=== PATIENT | male | born 1955 | race Caucasian/White ===

== ENCOUNTER 2016-09-04 16:40 | Emergency (ER) | payer MEDICARE, OTHER ==
[2016-09-04] MEDS ORDERED: HYDROmorphone 1 MG/ML 1 ML SYRINGE IM STA (17:26)
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
[2016-09-04 17:56] LABS: Appearance,Urine Clear (Clear); Bilirubin,Urine Negative (Negative); Glucose,Urine (UA) Negative (Negative); Ketones,Urine Negative (Negative); Leukocyte Esterase,Urine Negative (Negative); Nitrite,Urine Negative (Negative); PH, Urine 6.5 (5.0-8.0); Protein,Urine Negative (Negative); Specific Gravity,Urine 1.014 (1.001-1.035); UA Billing (MACRO vs. MICRO) CHEM; Urobilinogen,Urine <2.0 mg/dL (<2.0)
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
[2016-09-04] MEDS ORDERED: HYDROmorphone 1 MG/ML 1 ML SYRINGE IVP STA (18:40)
[2016-09-04 18:56] LABS: Basophils % (A) 0 %; CH 30.3; CHCM 32.1; Eosinophils # (A) 0.1 k/uL (0-0.7); Eosinophils % (A) 1 %; HCT 48.4 % (39.0-53.0); HDW 2.53; HGB 15.5 gm/dL (13.0-17.5); Luc # (Auto) 0.21; Luc % (Auto) 2; Lymphocytes % (A) 23 %; MCH 30.3 pg (25.0-35.0); MCV 94.7 fL (80.0-100.0); Mean Platelet Volume 7.6; Monocytes # (A) 0.4 k/uL (0-1.0); Monocytes % (A) 5 %; Neutrophils # (A) 6.1 k/uL (1.3-7.7); Neutrophils % (A) 68 %; RBC 5.12 m/uL (4.30-5.90); WBC 8.9 k/uL (3.8-10.6); WBC (Perox) 8.38
[2016-09-04 19:07] LABS: ALT 33 U/L (21-72); AST 23 U/L (17-59); Alcohol <10 mg/dL; Alkaline Phosphatase 67 U/L (38-126); Anion Gap 7 mmol/L; Blood Urea Nitrogen 16 mg/dL (9-20); Calcium 9.4 mg/dL (8.4-10.2); Carbon Dioxide 33 mmol/L (22-30); Chloride 99 mmol/L (98-107); Glucose 79 mg/dL (74-99); Non-African American GFR(MDRD) >60 (>60 ml/min/1.73 sqM); Potassium 4.7 mmol/L (3.5-5.1); Sodium 139 mmol/L (137-145); Total Bilirubin 0.5 mg/dL (0.2-1.3)
[2016-09-04 19:18] LABS: Creatine Kinase 167 U/L (55-170)
[2016-09-04 19:30] LABS: Troponin I <0.012 ng/mL (0.000-0.034)
[2016-09-04 19:33] LABS: Partial Thromboplastin Time 24.5 sec (22.0-30.0); Prothrombin Time 10.3 sec (9.0-12.0)
[2016-09-04 19:34] LABS: Creatine Kinase MB 5.2 ng/mL (0.0-2.4)
[2016-09-04 20:59] VITALS: BP 169/90; PULSE 86; RESP 20; TEMP 98.4
== END 2016-09-04 20:59 | disposition home or self-care (01) ==
LOC: EC 16:40
DX: M48.06 Spinal stenosis, lumbar region (principal); M48.02 Spinal stenosis, cervical region; F17.200 Nicotine dependence, unspecified, uncomplicated; E66.01 Morbid (severe) obesity due to excess calories; Z68.43 Body mass index [BMI] 50.0-59.9, adult; Z79.82 Long term (current) use of aspirin; V48.6XXA Car passenger injured in noncollision transport accident in traffic accident, initial encounter; Y92.410 Unspecified street and highway as the place of occurrence of the external cause
CPT/HCPCS: 99285; 96374; 96372; 36415; 93005; 80053; 82550; 82553; 84484; 85025; 85610; 85730; 81003; 80306; 80320; 71010; 72170; 72125; 72131; J1170

== ENCOUNTER 2016-11-03 18:19 | Inpatient (IN) | payer MEDICARE ==
[2016-11-03] MEDS ORDERED: IPRATROPIUM-ALBUTEROL 3 ML NEB INHALATION STA (18:53)
[2016-11-03] MEDS ORDERED: methylPREDNISolone SOD SUCCI 125 MG/2 ML VIAL IV STA (18:53)
[2016-11-03 19:12] LABS: Basophils # (A) 0.1 k/uL (0-0.2); Basophils % (A) 1 %; CH 30.8; CHCM 32.1; Eosinophils # (A) 0.1 k/uL (0-0.7); Eosinophils % (A) 1 %; HCT 48.3 % (39.0-53.0); HDW 2.48; HGB 15.4 gm/dL (13.0-17.5); Luc # (Auto) 0.18; Luc % (Auto) 2; Lymphocytes # (A) 2.5 k/uL (1.0-4.8); Lymphocytes % (A) 30 %; MCH 30.7 pg (25.0-35.0); MCHC 31.9 g/dL (31.0-37.0); MCV 96.3 fL (80.0-100.0); Mean Platelet Volume 7.5; Monocytes # (A) 0.3 k/uL (0-1.0); Monocytes % (A) 4 %; Neutrophils # (A) 5.2 k/uL (1.3-7.7); Neutrophils % (A) 62 %; RBC 5.02 m/uL (4.30-5.90); RDW 13.4 % (11.5-15.5); WBC 8.3 k/uL (3.8-10.6); WBC (Perox) 7.96
[2016-11-03 19:23] LABS: ALT 33 U/L (21-72); AST 25 U/L (17-59); Alkaline Phosphatase 80 U/L (38-126); Anion Gap 9 mmol/L; Blood Urea Nitrogen 18 mg/dL (9-20); Calcium 8.9 mg/dL (8.4-10.2); Carbon Dioxide 31 mmol/L (22-30); Chloride 102 mmol/L (98-107); Glucose 142 mg/dL (74-99); Magnesium 1.7 mg/dL (1.6-2.3); Non-African American GFR(MDRD) >60 (>60 ml/min/1.73 sqM); Potassium 4.6 mmol/L (3.5-5.1); Sodium 142 mmol/L (137-145); Total Bilirubin 0.4 mg/dL (0.2-1.3); Total Protein 6.4 g/dL (6.3-8.2)
--- NOTE | 2016-11-03 19:25 | ED ---
SOB HPI - General Chief Complaint: Shortness of Breath Stated Complaint: Diff Breathing Time Seen by Provider: 11/03/16 18:24 Source: patient, EMS Mode of arrival: EMS Limitations: no limitations - History of Present Illness Initial Comments: Is a 61-year-old male with a history of CAD and COPD who presents emergency department progressive worsening shortness of breath. He states it started yesterday. He states it is worse with exertion. He also has some associated bilateral knee pain which is chronic for him. He states that he went to his physician's office today who documented that he had a oxygen saturation of 88% was concerned so sent him in the emergency department. The patient does wear oxygen at home. He states that the oxygen requirement has been higher and if he takes it off he gets extremely short of breath. He denies any associated chest pain. No fevers or chills. No cough. He states he's had this happen before and it was a COPD. He states he does currently still smoke. - Related Data Home Medications Medication Instructions Recorded Confirmed Albuterol Nebulized [Ventolin 2.5 mg INHALATION RT-QID PRN 11/03/16 11/03/16 Nebulized] Atorvastatin Calcium [Lipitor] 40 mg PO DAILY 11/03/16 11/03/16 Fluticasone/Vilanterol [Breo 1 puff INHALATION RT-DAILY 11/03/16 11/03/16 Ellipta 200-25 Mcg INH] HYDROcodone/APAP 7.5-325MG [[place] 1 tab PO Q4HR PRN 11/03/16 11/03/16 7.5-325] Nystatin 100,000Unit/gm Cream 1 applic TOPICAL BID 11/03/16 11/03/16 [Mycostatin Cream] oxyCODONE ER [OxyCONTIN 20MG E.R] 20 mg PO Q12HR 11/03/16 11/03/16 Previous Rx's Medication Instructions Recorded Clopidogrel [Plavix] 75 mg PO DAILY #30 tab 02/05/16 Famotidine [Pepcid] 20 mg PO BID #60 tablet 02/05/16 Metoprolol Tartrate [Lopressor] 25 mg PO BID #60 tab 02/05/16 Nitroglycerin Sl Tabs [Nitrostat] 0.4 mg SUBLINGUAL Q5M PRN #100 tab 09/08/16 ALPRAZolam [Xanax] 0.25 mg PO TID PRN #20 tab 02/09/16 Isosorbide Mononitrate ER [Imdur] 60 mg PO DAILY tab.er.24h 02/09/16 Allergies Allergy/AdvReac Type Severity Reaction Status Date / Time No Known Allergies Allergy Verified 11/03/16 20:21 Review of Systems ROS Statement: Those systems with pertinent positive or pertinent negative responses have been documented in the HPI. ROS Other: All systems not noted in ROS Statement are negative. Past Medical History Past Medical History: Coronary Artery Disease (CAD), Chest Pain / Angina, COPD, CVA/TIA, Hyperlipidemia, Hypertension, Myocardial Infarction ([place]), Sleep Apnea/ CPAP/BIPAP Additional Past Medical History / Comment(s): Other HX: diverticular dx, NARCISO without device, 2004 CVA with no deficits, [place] in 2011, chronic low back pain, 4 vertebral fx L2-L5, L knee fx in past and torn R rotator cuff. Last Myocardial Infarction Date:: 2011 History of Any Multi-Drug Resistant Organisms: None Reported Past Surgical History: AICD, Heart Catheterization With Stent, Hernia Repair Additional Past Surgical History / Comment(s): PTCA, PTCA with stent (4 total), 04/05/13 AICD [employer], 1989' umbilical hernia repair, colonoscopy, circumcism. Past Anesthesia/Blood Transfusion Reactions: No Reported Reaction Date of Last Stent Placement:: 2012 Type of Cardiac Device: AICD Device Placement Date:: 04/05/13 Past Psychological History: No Psychological Hx Reported Additional Psychological History / Comment(s): Pt moved about 1 month ago from [place] to [place]. He is living in a home with other adults. He is sleeping on their couch. He can drive. He states he uses no assistive devices. Smoking Status: Current every day smoker Past Alcohol Use History: None Reported Additional Past Alcohol Use History / Comment(s): Pt states he started smoking around 1972 and has been less than 1/2 ppd and recently maybe has been smoking 1 cigarette a day. Past Drug Use History: None Reported - Past Family History Father Family Medical History: Musculoskeletal Disorder, Neurologic Disorder Additional Family Medical History / Comment(s): Father had parkinson's dx and at age 84 yrs. Mother Family Medical History: Myocardial Infarction ([place]) Additional Family Medical History / Comment(s): Mother had 3 vessel CABG. She of a massive [place] at the age of 53 yrs. General Exam - General Exam Comments Initial Comments: Constitutional: Awake alert Appears comfortable Head: Normocephalic atraumatic Eyes: no conjunctival injection No scleral icterus EOMI Neck: No JVD Supple Heart: Regular rate rhythm normal S1-S2 no murmurs Lungs: Tachypneic, decreased breath sounds due to body habitus, there is mild expiratory wheezing bilaterally Abdomen: Soft nondistended nontender Extremities: DP pulses intact Radial pulses intact, there is no lower extremity edema bilaterally however the patient states that this is chronic Neuro: A&Ox3 No focal neurologic deficits Psych: Appropriate mood and affect Limitations: no limitations Course Vital Signs 11/03/16 11/03/16 11/03/16 18:22 18:30 19:53 Temperature 98.5 F Pulse Rate 81 72 Respiratory 22 24 Rate Blood Pressure 197/95 O2 Sat by Pulse 98 Oximetry 11/03/16 11/03/16 11/03/16 20:00 20:06 20:33 Temperature Pulse Rate 78 80 87 Respiratory Rate Blood Pressure O2 Sat by Pulse Oximetry - Reevaluation(s) Reevaluation #1: 11/03/16 19:24 EKG showing normal sinus rhythm with a rate of CAD. No abnormal ST segment changes or T-wave inversions. QTC 449. Other intervals are normal. No ectopy. Medical Decision Making - Medical Decision Making Is a 61-year-old male presents emergency department for worsening soreness of breath for the last day. Patient did have some faint wheezes on examination. He felt mildly improved after breathing treatments however was very labored whenever he moved at all area he does wear 4 L any was about 90-92% on 4 L. Chest x-ray did not show any acute findings however due to the patient's work of breathing like to keep him in the hospital for COPD exacerbation. The patient was in agreement. Dr. Winn accepts the admission. - Lab Data Result diagrams: 11/03/16 19:00 11/03/16 19:00 Lab Results 11/03/16 11/03/16 11/03/16 Range/Units 19:00 19:00 19:00 WBC 8.3 (3.8-10.6) k/uL RBC 5.02 (4.30-5.90) m/uL Hgb 15.4 (13.0-17.5) gm/dL Hct 48.3 (39.0-53.0) % MCV 96.3 (80.0-100.0) fL MCH 30.7 (25.0-35.0) pg MCHC 31.9 (31.0-37.0) g/dL RDW 13.4 (11.5-15.5) % Plt Count 154 (150-450) k/uL Neutrophils % 62 % Lymphocytes % 30 % Monocytes % 4 % Eosinophils % 1 % Basophils % 1 % Neutrophils # 5.2 (1.3-7.7) k/uL Lymphocytes # 2.5 (1.0-4.8) k/uL Monocytes # 0.3 (0-1.0) k/uL Eosinophils # 0.1 (0-0.7) k/uL Basophils # 0.1 (0-0.2) k/uL PT (9.0-12.0) sec INR (<1.1) APTT (22.0-30.0) sec Sodium 142 (137-145) mmol/L Potassium 4.6 (3.5-5.1) mmol/L Chloride 102 (98-107) mmol/L Carbon Dioxide 31 H (22-30) mmol/L Anion Gap 9 mmol/L BUN 18 (9-20) mg/dL Creatinine 1.00 (0.66-1.25) mg/dL Est GFR (MDRD) Af Amer >60 (>60 ml/min/1.73 sqM) Est GFR (MDRD) Non-Af >60 (>60 ml/min/1.73 sqM) Glucose 142 H (74-99) mg/dL Calcium 8.9 (8.4-10.2) mg/dL Magnesium 1.7 (1.6-2.3) mg/dL Total Bilirubin 0.4 (0.2-1.3) mg/dL AST 25 (17-59) U/L ALT 33 (21-72) U/L Alkaline Phosphatase 80 (38-126) U/L CK-MB (CK-2) 4.5 H* (0.0-2.4) ng/mL Troponin I <0.012 (0.000-0.034) ng/mL NT-Pro-B Natriuret Pep pg/mL Total Protein 6.4 (6.3-8.2) g/dL Albumin 3.6 (3.5-5.0) g/dL 11/03/16 11/03/16 Range/Units 19:00 19:00 WBC (3.8-10.6) k/uL RBC (4.30-5.90) m/uL Hgb (13.0-17.5) gm/dL Hct (39.0-53.0) % MCV (80.0-100.0) fL MCH (25.0-35.0) pg MCHC (31.0-37.0) g/dL RDW (11.5-15.5) % Plt Count (150-450) k/uL Neutrophils % % Lymphocytes % % Monocytes % % Eosinophils % % Basophils % % Neutrophils # (1.3-7.7) k/uL Lymphocytes # (1.0-4.8) k/uL Monocytes # (0-1.0) k/uL Eosinophils # (0-0.7) k/uL Basophils # (0-0.2) k/uL PT 9.9 (9.0-12.0) sec INR 1.0 (<1.1) APTT 24.0 (22.0-30.0) sec Sodium (137-145) mmol/L Potassium (3.5-5.1) mmol/L Chloride (98-107) mmol/L Carbon Dioxide (22-30) mmol/L Anion Gap mmol/L BUN (9-20) mg/dL Creatinine (0.66-1.25) mg/dL Est GFR (MDRD) Af Amer (>60 ml/min/1.73 sqM) Est GFR (MDRD) Non-Af (>60 ml/min/1.73 sqM) Glucose (74-99) mg/dL Calcium (8.4-10.2) mg/dL Magnesium (1.6-2.3) mg/dL Total Bilirubin (0.2-1.3) mg/dL AST (17-59) U/L ALT (21-72) U/L Alkaline Phosphatase (38-126) U/L CK-MB (CK-2) (0.0-2.4) ng/mL Troponin I (0.000-0.034) ng/mL NT-Pro-B Natriuret Pep 116 pg/mL Total Protein (6.3-8.2) g/dL Albumin (3.5-5.0) g/dL Disposition Clinical Impression: COPD exacerbation Disposition: ADMITTED IP TO THIS HOSP Condition: Stable Referrals: Tushar Cuadra DO [Primary Care Provider] - 1-2 days
[2016-11-03 19:44] LABS: Prothrombin Time 9.9 sec (9.0-12.0)
[2016-11-03 19:48] LABS: Troponin I <0.012 ng/mL (0.000-0.034)
[2016-11-03 19:51] LABS: Creatine Kinase MB 4.5 ng/mL (0.0-2.4)
--- NOTE | 2016-11-03 21:12 | XR ---
EXAMINATION TYPE: XR chest 1V DATE OF EXAM: 11/03/2016 COMPARISON: 09/04/2016 HISTORY: Difficulty breathing TECHNIQUE: Single frontal view of the chest is obtained. FINDINGS: There is no heart failure nor confluent pneumonic infiltrate. There are no hilar masses. T here are chest leads. There is a left axillary pacemaker with the lead tips in the right ventricle. IMPRESSION: No active cardiopulmonary disease. No change.
[2016-11-03] MEDS: HYDROcodone/APAP 7.5-325MG 1 EACH TAB PO PRN (21:28)
[2016-11-03] MEDS ORDERED: METOPROLOL TARTRATE 25 MG TAB PO STA (22:01)
[2016-11-03] MEDS ORDERED: ALPRAZolam 0.25 MG TAB PO PRN (23:19)
[2016-11-03] MEDS ORDERED: NITROGLYCERIN SL TABS 0.4 MG TAB SUBLINGUAL PRN (23:19)
[2016-11-03] MEDS ORDERED: IPRATROPIUM-ALBUTEROL 3 ML NEB INHALATION PRN (23:20)
[2016-11-03] MEDS: oxyCODONE ER 20 MG TAB.ER.12H PO SCH (23:48)
[2016-11-04] MEDS: HYDROcodone/APAP 7.5-325MG 1 EACH TAB PO PRN ×3 (03:52→17:22)
[2016-11-04] MEDS: methylPREDNISolone SOD SUCCI 125 MG/2 ML VIAL IV SCH ×2 (06:07→12:43)
[2016-11-04] MEDS: IPRATROPIUM-ALBUTEROL 3 ML NEB INHALATION SCH ×5 (07:04→23:47)
[2016-11-04 07:32] LABS: Glucose,Whole Blood 144 mg/dL (75-99)
[2016-11-04] MEDS: oxyCODONE ER 20 MG TAB.ER.12H PO SCH ×2 (08:09→21:32)
[2016-11-04] MEDS: CLOPIDOGREL 75 MG TAB PO SCH (08:10)
[2016-11-04] MEDS: ATORVASTATIN 40 MG TAB PO SCH (08:10)
[2016-11-04] MEDS: FAMOTIDINE 20 MG TAB PO SCH ×2 (08:10→21:34)
[2016-11-04] MEDS: METOPROLOL TARTRATE 25 MG TAB PO SCH ×2 (08:11→21:33)
[2016-11-04] MEDS: ISOSORBIDE MONONITRATE ER 60 MG TAB.ER.24H PO SCH (08:11)
[2016-11-04] MEDS: NYSTATIN 100,000UNIT/GM CREAM 30 GM TUBE TOPICAL SCH ×2 (08:13→21:35)
[2016-11-04] MEDS: ENOXAPARIN 40 MG/0.4 ML SYRINGE SQ SCH (08:19)
[2016-11-04] MEDS ORDERED: NICOTINE 21MG/24HR PATCH TRANSDERM SCH (09:00)
[2016-11-04 11:27] LABS: Glucose,Whole Blood 181 mg/dL (75-99)
[2016-11-04] MEDS: INSULIN LISPRO (humaLOG) 300 UNIT/3 ML VIAL SQ SCH ×3 (12:46→21:34)
[2016-11-04] MEDS: NICOTINE 14MG/24HR PATCH TRANSDERM SCH (16:44)
[2016-11-04] MEDS: POLYETHYLENE GLYCOL 3350 17 GM POWD.PACK PO SCH (17:22)
[2016-11-04 17:42] LABS: Glucose,Whole Blood 150 mg/dL (75-99)
[2016-11-04] MEDS: BUDESONIDE 1 MG/2 ML NEBU INHALATION SCH ×2 (20:03→20:04)
--- NOTE | 2016-11-04 20:22 | HP ---
DATE OF ADMISSION: 11/03/2016 PRESENTING COMPLAINT: Shortness of breath. HISTORY OF PRESENTING COMPLAINT: This is a 61-year-old patient of Dr. Cuadra with a rather extensive medical history, including coronary artery disease with stent, stroke with no residual, hypertension, hyperlipidemia, sleep apnea, diverticulosis, obstructive sleep apnea, chronic lower lumbar back pain from L2 to L5 fractures, AICD in place. Patient presented with worsening shortness of breath, wheezing, some clear sputum. No fever. Edema is present. Some decreased appetite. Patient has about one bowel movement a week. Lying in bed. Rather short of breath. Tired. Denies any fever. REVIEW OF SYSTEMS: CONSTITUTIONAL: Weak, tired. HEENT: None. RESPIRATORY: As above. CARDIOVASCULAR: None. GASTROINTESTINAL: As above. GENITOURINARY: None. MUSCULOSKELETAL: Aches and pains in different joints. DERMATOLOGICAL: None. HEMATOLOGIC: None. LYMPHATICS: None. PSYCHIATRY: None. NEUROLOGICAL: None. PAST MEDICAL HISTORY: 1. Coronary artery disease with stent. 2. COPD. 3. Stroke; no residual. 4. Hyperlipidemia. 5. Hypertension. 6. Sleep apnea. 7. Diverticulosis. 8. Obstructive sleep apnea. 9. L2 to L5 fractures. 10. Right rotator cuff injury. 11. AICD. PAST SURGICAL HISTORY: 1. AICD. 2. Cardiac cath with stent. 3. Angioplasty with stent x4. 4. In 2012 AICD was placed. 5. Umbilical hernia repair. 6. Circumcision. SOCIAL HISTORY: Patient lives with other roommates. Smokes about 5 cigarettes a day. Has been a light smoker for many years. FAMILY HISTORY: Father had Parkinson's disease. HOME MEDICATIONS: 1. Nystatin topically b.i.d. 2. Oxycodone ER 20 mg p.o. q.12. 3. Breo Ellipta 1 puff daily. 4. Lipitor 40 mg a day. 5. Nitrostat 0.4 sublingually q.5 p.r.n. 6. Lopressor 25 p.o. b.i.d. 7. Imdur ER 60 mg p.o. daily. 8. [place] 7.5 one tablet q.4 p.r.n. 9. Pepcid 20 mg p.o. b.i.d. 10. Plavix 75 mg p.o. daily. 11. Ventolin 2.5 q.i.d. p.r.n. 12. Xanax 0.25 p.o. t.i.d. p.r.n. ALLERGIES: NONE. PHYSICAL EXAMINATION: VITAL SIGNS ON PRESENTATION: Temperature 98.3, pulse 71, respiration 17, blood pressure 176/86, pulse ox 92% on 4 L. GENERAL APPEARANCE: Morbidly obese; BMI of 42.8. Lying in bed. Short of breath at rest. EYES: Pupils equal. Conjunctivae normal. HEENT: Oral cavity normal. NECK: Short, thick. JVD unable to assess. Mass not palpable. RESPIRATORY: Effort increased. LUNGS: Decreased breath sounds. Prolonged expiration and wheezing. CARDIOVASCULAR: Heart sounds muffled. Edema present. ABDOMEN: Distended, large. Liver and spleen not palpable. Soft, nontender. LYMPHATIC: No lymph node palpable in neck or axillae. PSYCHIATRY: Alert and oriented x3. Mood and affect anxious-appearing. NEUROLOGICAL: Pupils equal. Cranial nerves grossly intact. Power and sensation grossly intact. INVESTIGATIONS: White count 8.3, hemoglobin 15.4. Potassium 4.6. BUN and creatinine are normal. Troponin less than 0.012. ProBNP 116. ASSESSMENT: 1. Acute chronic obstructive pulmonary disease exacerbation in a smoker. 2. Possible obesity hypoventilation syndrome. 3. Chronic nicotine dependence. Patient is currently an ex-smoker. 4. Coronary artery disease with stent. 5. Obstructive sleep apnea; uses CPAP. 6. Hyperlipidemia. 7. Essential hypertension, uncontrolled. 8. Chronic lower back pain from L2 to L5 fracture. 9. Automatic implantable cardioverter defibrillator in place. PLAN: Patient advised against smoking, put on nicotine patch, put on nebulized bronchodilators, nebulized steroids and IV steroids. Home medications are to resume. Care was discussed with the patient. Will add MiraLax for constipation.
[2016-11-04 20:35] LABS: Glucose,Whole Blood 212 mg/dL (75-99)
[2016-11-04 20:44] LABS: Hemoglobin A1C 5.3 % (4.2-6.1)
[2016-11-04] MEDS: methylPREDNISolone SOD SUCCI 40 MG/ML 1 ML VIAL IV SCH (21:32)
[2016-11-05] MEDS: HYDROcodone/APAP 7.5-325MG 1 EACH TAB PO PRN ×5 (01:08→21:30)
[2016-11-05] MEDS: methylPREDNISolone SOD SUCCI 40 MG/ML 1 ML VIAL IV SCH ×3 (04:11→21:31)
[2016-11-05] MEDS: IPRATROPIUM-ALBUTEROL 3 ML NEB INHALATION SCH ×6 (04:22→20:32)
[2016-11-05 07:52] LABS: Glucose,Whole Blood 158 mg/dL (75-99)
[2016-11-05] MEDS: INSULIN LISPRO (humaLOG) 300 UNIT/3 ML VIAL SQ SCH ×4 (08:09→21:34)
[2016-11-05] MEDS: FAMOTIDINE 20 MG TAB PO SCH ×2 (08:12→21:31)
[2016-11-05] MEDS: ENOXAPARIN 40 MG/0.4 ML SYRINGE SQ SCH (08:13)
[2016-11-05] MEDS: ATORVASTATIN 40 MG TAB PO SCH (08:13)
[2016-11-05] MEDS: ISOSORBIDE MONONITRATE ER 60 MG TAB.ER.24H PO SCH (08:13)
[2016-11-05] MEDS: METOPROLOL TARTRATE 25 MG TAB PO SCH ×2 (08:14→21:31)
[2016-11-05] MEDS: NICOTINE 14MG/24HR PATCH TRANSDERM SCH (08:14)
[2016-11-05] MEDS: NYSTATIN 100,000UNIT/GM CREAM 30 GM TUBE TOPICAL SCH ×2 (08:14→21:36)
[2016-11-05] MEDS: POLYETHYLENE GLYCOL 3350 17 GM POWD.PACK PO SCH (08:15)
[2016-11-05] MEDS: CLOPIDOGREL 75 MG TAB PO SCH (08:19)
[2016-11-05] MEDS: oxyCODONE ER 20 MG TAB.ER.12H PO SCH ×2 (08:26→21:50)
[2016-11-05 10:01] LABS: Basophils % (A) 0 %; CH 30.8; CHCM 31.6; Eosinophils % (A) 0 %; HDW 2.37; HGB 14.5 gm/dL (13.0-17.5); Luc # (Auto) 0.09; Luc % (Auto) 1; Lymphocytes # (A) 1.2 k/uL (1.0-4.8); Lymphocytes % (A) 9 %; MCH 30.9 pg (25.0-35.0); MCHC 31.6 g/dL (31.0-37.0); MCV 97.8 fL (80.0-100.0); Monocytes # (A) 0.3 k/uL (0-1.0); Monocytes % (A) 2 %; Neutrophils # (A) 12.7 k/uL (1.3-7.7); Neutrophils % (A) 88 %; RDW 13.3 % (11.5-15.5); WBC 14.3 k/uL (3.8-10.6); WBC (Perox) 14.29
[2016-11-05 10:23] LABS: Anion Gap 7 mmol/L; Blood Urea Nitrogen 22 mg/dL (9-20); Calcium 9.2 mg/dL (8.4-10.2); Carbon Dioxide 36 mmol/L (22-30); Chloride 96 mmol/L (98-107); Glucose 174 mg/dL (74-99); Non-African American GFR(MDRD) >60 (>60 ml/min/1.73 sqM); Potassium 4.9 mmol/L (3.5-5.1); Sodium 139 mmol/L (137-145)
[2016-11-05 11:38] LABS: Glucose,Whole Blood 147 mg/dL (75-99)
[2016-11-05 16:35] LABS: Glucose,Whole Blood 144 mg/dL (75-99)
--- NOTE | 2016-11-05 18:16 | P.PN ---
Progress Note - Text DATE OF SERVICE: 11/05/2016 PRESENTING COMPLAINT: Shortness of breath INTERVAL HISTORY: This patient presented to the emergency department with acute COPD exacerbation. Today, he looks some better, noticeable shortness of breath on minimal exertion, has some conversational dyspnea, tolerating his diet, been sitting up in the chair. REVIEW OF SYSTEMS: Done for constitutional ,cardiovascular, GI, pulmonary with relevant findings as above. CURRENT MEDICATIONS [place], DuoNeb, Xanax, Plavix, Lovenox, Pepcid, Solu-Medrol, Lopressor, nicotine patch. PHYSICAL EXAM: VITAL SIGNS: Temperature 98.9 pulse 61 respiratory rate 20 blood pressure 167/ 84 oxygen saturation 91% on 4 L. GENERAL APPEARANCE: Large obese build. Lying in bed, mild distress on minimal exertion EYES: Pupils equal. Conjunctiva normal. NECK: JVD unable to assess . Mass not palpable. RESPIRATORY: Respiratory effort increased decreased breath sounds l. Prolonged expiration and wheezing. CARDIOVASCULAR: First and second sounds normal. edema present. ABDOMEN: Large distended, soft, nontender Liver and spleen not palpable. . No mass palpable. PSYCHIATRY: Alert and oriented x3. Mood and affect normal. NEUROLOGICAL: Cranial nerves grossly intact. No facial asymmetry. Power and sensation grossly intact INVESTIGATIONS: White blood cell count 14.3 BUN 22 creatinine 0.82 glucose 174 Chest x-ray no active pulmonary disease. ASSESSMENT: 1. Acute chronic obstructive pulmonary disease exacerbation in a smoker. 2. Possible obesity hypoventilation syndrome. 3. Chronic nicotine dependence,. The patient is currently a smoker. 4. Coronary artery disease with stent. 5. Obstructive sleep apnea uses a CPAP. 6. Hyperlipidemia. 7. Essential hypertension, uncontrolled. 8. Chronic lower back pain from L2 to L5 fracture. 9. Automatic implantable cardioverter defibrillator in place. PLAN: Nicotine patch in place patient should stop smoking. We'll continue nebulized bronchodilators nebulized steroids and IV steroids along with Lasix. We'll continue to monitor patient closely. 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 Winn
[2016-11-05 20:47] VITALS: PULSE 72
[2016-11-05] MEDS ORDERED: NYSTATIN 100,000 UNIT/GM POWD 15 GM TOPICAL SCH (21:00)
[2016-11-05 21:05] LABS: Glucose,Whole Blood 190 mg/dL (75-99)
[2016-11-05 23:21] VITALS: BP 135/73; RESP 16; TEMP 97.5
[2016-11-06] MEDS: HYDROcodone/APAP 7.5-325MG 1 EACH TAB PO PRN (01:27)
[2016-11-06] MEDS ORDERED: IPRATROPIUM-ALBUTEROL 3 ML NEB INHALATION SCH (08:00)
--- NOTE | 2016-11-06 18:04 | PN ---
DATE OF SERVICE: 11/05/2016 ATTENDING NOTE: This patient was seen and examined by me on 11/05/16. I reviewed the note of my nurse practitioner, Ms. Bashir, discussed. Additional findings below. This patient is a smoker, presented with COPD exacerbation. Still short of breath. Doing a bit better. Lying in bed. Tolerating some diet. On examination, LUNGS: Diminished breath sounds. Prolonged expiration. RESPIRATORY: Rate is increased. ABDOMEN: Distended, soft. PSYCHIATRY: Alert and oriented x3. ASSESSMENT: 1. Acute severe chronic obstructive pulmonary disease exacerbation, slow to respond. 2. Possible obesity hypoventilation syndrome. 3. Chronic nicotine dependence. PLAN: Continue current medication and treatment plan. Patient again reminded against smoking. Will follow.
--- NOTE | 2016-11-19 19:58 | DS ---
DATE OF ADMISSION: 11/05/2016 DATE OF DISCHARGE: 11/06/2016 DATE LEFT AGAINST MEDICAL ADVICE: 11/06/2016 FINAL DIAGNOSES: 1. Acute chronic obstructive pulmonary disease exacerbation in a smoker. 2. Possible obesity hypoventilation syndrome. 3. Chronic nicotine dependence. Patient is cigarette smoker. 4. Coronary artery disease with stent. 5. Obstructive sleep apnea, uses CPAP. 6. Hyperlipidemia. 7. Essential hypertension, uncontrolled. 8. Chronic low back pain from L2 to L5 fracture. 9. AICD in place. HOSPITAL COURSE: This patient is a smoker presented with COPD exacerbation. Patient went to go smoke in the early hours of the morning. The patient decided to leave AGAINST MEDICAL ADVICE.
== END 2016-11-06 02:48 | disposition left against medical advice (07) | DRG 191 ==
LOC: EC 18:19 → 5MS5E 21:18 → OBSVTOIN 11-05 13:31
PROVIDERS: ADMIT Hospitalist; ATTEND Hospitalist
DX: J44.1 Chronic obstructive pulmonary disease with (acute) exacerbation (principal); Z68.43 Body mass index [BMI] 50.0-59.9, adult; E66.2 Morbid (severe) obesity with alveolar hypoventilation; Z99.81 Dependence on supplemental oxygen; F17.210 Nicotine dependence, cigarettes, uncomplicated; I25.10 Atherosclerotic heart disease of native coronary artery without angina pectoris; G47.33 Obstructive sleep apnea (adult) (pediatric); E78.5 Hyperlipidemia, unspecified; I10 Essential (primary) hypertension; G89.29 Other chronic pain; I25.2 Old myocardial infarction; K59.00 Constipation, unspecified; K57.90 Diverticulosis of intestine, part unspecified, without perforation or abscess without bleeding; Z87.81 Personal history of (healed) traumatic fracture; Z95.5 Presence of coronary angioplasty implant and graft; Z95.810 Presence of automatic (implantable) cardiac defibrillator; Z86.73 Personal history of transient ischemic attack (TIA), and cerebral infarction without residual deficits; Z79.02 Long term (current) use of antithrombotics/antiplatelets; Z79.51 Long term (current) use of inhaled steroids; Z79.891 Long term (current) use of opiate analgesic; Z79.899 Other long term (current) drug therapy
CPT/HCPCS: 36415; 71010; 80048; 80053; 82553; 83036; 83735; 83880; 84484; 85025; 85610; 85730; 93005; 94640; 96372; 96374; 96376; 99285

== ENCOUNTER 2017-07-31 09:44 | Inpatient (IN) | payer MEDICARE ==
[2017-07-31] MEDS ORDERED: IPRATROPIUM-ALBUTEROL 3 ML NEB INHALATION STA (10:04)
[2017-07-31] MEDS ORDERED: cefTRIAXone IN SWFI 1,000 MG/10 ML SYRINGE IVP STA (10:04)
[2017-07-31] MEDS ORDERED: VANCOMYCIN IV PER PHARMACY 1 EACH MISC MISCELLANE PRN (10:04)
[2017-07-31] MEDS ORDERED: ACETAMINOPHEN IV (For NPO) 1,000 MG in EMPTY BAG 1 BAG IVPB STA (10:06)
--- NOTE | 2017-07-31 10:07 | ED ---
General Adult HPI - General Chief complaint: Skin/Abscess/Foreign Body Stated complaint: Chest Pain Time Seen by Provider: 07/31/17 09:58 Source: patient, EMS, RN notes reviewed, old records reviewed Mode of arrival: EMS Limitations: no limitations - History of Present Illness Initial comments: This is a 7-year-old male the ER for evaluation of left lower extremity pain and edema. Patient states he woke up with left pain leg pain today. Does admit to feeling chills and weakness. Patient also states he had some chest pain when he got out of bed this morning which he thinks may be related to leg pain. Patient has no significant recent travel history, does have also medical significant morbidities. Obesity. With significant heart disease, CAD. Patient states is currently chest pain-free. - Related Data Home Medications Medication Instructions Recorded Confirmed Atorvastatin Calcium [Lipitor] 40 mg PO DAILY 11/03/16 07/31/17 Albuterol Nebulized [Ventolin 2.5 mg INHALATION RT-QID PRN 04/25/17 07/31/17 Nebulized] Famotidine [Pepcid] 20 mg PO BID 04/25/17 07/31/17 Fluticasone/Vilanterol [Breo 1 puff INHALATION RT-DAILY 04/25/17 07/31/17 Ellipta 200-25 Mcg INH] HYDROcodone/APAP 7.5-325MG [Melbeta 1 tab PO Q4H PRN 04/25/17 07/31/17 7.5-325] Isosorbide Mononitrate ER [Imdur] 60 mg PO DAILY 04/25/17 07/31/17 Metoprolol Tartrate [Lopressor] 25 mg PO BID 04/25/17 07/31/17 Nystatin 100,000 Unit/gm Powd 1 applic TOPICAL BID 04/25/17 07/31/17 [Mycostatin Powder] Etodolac [Lodine] 400 mg PO Q12H 08/01/17 08/01/17 Furosemide [Lasix] 40 mg PO DAILY 08/01/17 08/01/17 Previous Rx's Medication Instructions Recorded Clopidogrel [Plavix] 75 mg PO DAILY #30 tab 02/05/16 Losartan [Cozaar] 50 mg PO DAILY #30 tab 04/27/17 cloNIDine HCL [Catapres] 0.2 mg PO Q8HR #90 tab 05/17/17 Allergies Allergy/AdvReac Type Severity Reaction Status Date / Time No Known Allergies Allergy Verified 07/31/17 10:23 Review of Systems ROS Statement: Those systems with pertinent positive or pertinent negative responses have been documented in the HPI. ROS Other: All systems not noted in ROS Statement are negative. Past Medical History Past Medical History: Coronary Artery Disease (CAD), Chest Pain / Angina, COPD, CVA/TIA, Hyperlipidemia, Hypertension, Myocardial Infarction ([place]), Osteoarthritis (OA), Respiratory Disorder, Sleep Apnea/CPAP/BIPAP Additional Past Medical History / Comment(s): COPD, obesity, obesity hypoventilation syndrome, obstructive sleep apnea, suspected CHF and cor pulmonale, coronary artery disease with previous stenting of the LAD, previous history of AICD placement, osteoarthritis, CVA in 2004, chronic back pain secondary to degenerative disc disease and spinal canal stenosis, history of vertebral fracture L2 through L5, chronic lower extremity edema, diverticular disease, hyperlipidemia, hypertension, previous history of myocardial infarction ,, L knee fx in past and torn R rotator cuff. Last Myocardial Infarction Date:: 2011 History of Any Multi-Drug Resistant Organisms: None Reported Past Surgical History: AICD, Heart Catheterization With Stent, Hernia Repair Additional Past Surgical History / Comment(s): PTCA, PTCA with stent (4 total), 04/05/13 AICD [employer] scientific, umbilical hernia repair, colonoscopy, circumcism, R eye surgery for strabismus. Past Anesthesia/Blood Transfusion Reactions: No Reported Reaction Date of Last Stent Placement:: 2012 Type of Cardiac Device: AICD Device Placement Date:: 04/05/13 Past Psychological History: No Psychological Hx Reported Smoking Status: Current some day smoker Past Alcohol Use History: None Reported - Past Family History Father Family Medical History: Musculoskeletal Disorder, Neurologic Disorder Additional Family Medical History / Comment(s): Father had parkinson's dx and at age 84 yrs. Mother Family Medical History: Myocardial Infarction ([place]) Additional Family Medical History / Comment(s): Mother had 3 vessel CABG. She of a massive [place] at the age of 53 yrs. General Exam Limitations: no limitations General appearance: alert, in no apparent distress Head exam: Present: atraumatic, normocephalic, normal inspection Eye exam: Present: normal appearance, PERRL, EOMI. Absent: scleral icterus, conjunctival injection, periorbital swelling ENT exam: Present: normal exam, mucous membranes moist Neck exam: Present: normal inspection. Absent: tenderness, meningismus, lymphadenopathy Respiratory exam: Present: normal lung sounds bilaterally. Absent: respiratory distress, wheezes, rales, rhonchi, stridor Cardiovascular Exam: Present: regular rate, normal rhythm, normal heart sounds. Absent: systolic murmur, diastolic murmur, rubs, gallop, clicks GI/Abdominal exam: Present: soft, normal bowel sounds. Absent: distended, tenderness, guarding, rebound, rigid Extremities exam: Present: normal inspection, full ROM, normal capillary refill. Absent: tenderness, pedal edema, joint swelling, calf tenderness Back exam: Present: normal inspection Neurological exam: Present: alert, oriented X3, CN II-XII intact Psychiatric exam: Present: normal affect, normal mood Skin exam: Present: warm, dry, intact, normal color. Absent: rash Course Vital Signs 07/31/17 07/31/17 07/31/17 09:48 10:26 10:47 Temperature 100.4 F H Pulse Rate 90 87 72 Respiratory 20 16 Rate Blood Pressure 106/56 115/58 O2 Sat by Pulse 96 96 Oximetry 07/31/17 07/31/17 11:38 12:25 Temperature 99.1 F Pulse Rate 89 91 Respiratory 20 16 Rate Blood Pressure 92/46 108/61 O2 Sat by Pulse 95 91 L Oximetry - Reevaluation(s) Reevaluation #1: 07/31/17 10:38 Patient requiring significant pain control for left leg pain EKG Findings - EKG Comments: EKG Findings:: EKG shows normal sinus rhythm rate 91, PA 160, QRS 112, QTc 460 Medical Decision Making - Medical Decision Making 61 male the ER with significant left lower extremity pain. Edema, erythema. Patient with positive fever positive white count, significant sialitis of left lower extremity, will admit for IV antibiotics - Lab Data Result diagrams: 08/01/17 07:24 08/01/17 07:24 Lab Results 07/31/17 07/31/17 07/31/17 Range/Units 10:00 10:00 10:00 WBC 23.7 H (3.8-10.6) k/uL RBC 4.36 (4.30-5.90) m/uL Hgb 12.8 L (13.0-17.5) gm/dL Hct 39.2 (39.0-53.0) % MCV 90.1 (80.0-100.0) fL MCH 29.3 (25.0-35.0) pg MCHC 32.6 (31.0-37.0) g/dL RDW 13.5 (11.5-15.5) % Plt Count 116 L (150-450) k/uL Neutrophils % 89 % Lymphocytes % 8 % Monocytes % 3 % Eosinophils % 0 % Basophils % 0 % Neutrophils # 20.9 H (1.3-7.7) k/uL Lymphocytes # 1.8 (1.0-4.8) k/uL Monocytes # 0.6 (0-1.0) k/uL Eosinophils # 0.0 (0-0.7) k/uL Basophils # 0.1 (0-0.2) k/uL PT (9.0-12.0) sec INR (<1.2) APTT (22.0-30.0) sec Sodium 131 L (137-145) mmol/L Potassium 3.9 (3.5-5.1) mmol/L Chloride 95 L (98-107) mmol/L Carbon Dioxide 29 (22-30) mmol/L Anion Gap 7 mmol/L BUN 33 H (9-20) mg/dL Creatinine 1.05 (0.66-1.25) mg/dL Est GFR (MDRD) Af Amer >60 (>60 ml/min/1.73 sqM) Est GFR (MDRD) Non-Af >60 (>60 ml/min/1.73 sqM) Glucose 100 H (74-99) mg/dL Plasma Lactic Acid Hernán (0.7-2.0) mmol/L Calcium 8.4 (8.4-10.2) mg/dL Magnesium 1.5 L (1.6-2.3) mg/dL Total Bilirubin 0.8 (0.2-1.3) mg/dL AST 79 H (17-59) U/L ALT 41 (21-72) U/L Alkaline Phosphatase 43 (38-126) U/L Total Creatine Kinase 2112 H (55-170) U/L CK-MB (CK-2) 2.4 (0.0-2.4) ng/mL CK-MB (CK-2) Rel Index Troponin I 0.014 (0.000-0.034) ng/mL NT-Pro-B Natriuret Pep pg/mL Total Protein 5.6 L (6.3-8.2) g/dL Albumin 2.9 L (3.5-5.0) g/dL Lipase 21 L (23-300) U/L 07/31/17 07/31/17 07/31/17 Range/Units 10:00 10:00 10:06 WBC (3.8-10.6) k/uL RBC (4.30-5.90) m/uL Hgb (13.0-17.5) gm/dL Hct (39.0-53.0) % MCV (80.0-100.0) fL MCH (25.0-35.0) pg MCHC (31.0-37.0) g/dL RDW (11.5-15.5) % Plt Count (150-450) k/uL Neutrophils % % Lymphocytes % % Monocytes % % Eosinophils % % Basophils % % Neutrophils # (1.3-7.7) k/uL Lymphocytes # (1.0-4.8) k/uL Monocytes # (0-1.0) k/uL Eosinophils # (0-0.7) k/uL Basophils # (0-0.2) k/uL PT 10.9 (9.0-12.0) sec INR 1.1 (<1.2) APTT 27.1 (22.0-30.0) sec Sodium (137-145) mmol/L Potassium (3.5-5.1) mmol/L Chloride (98-107) mmol/L Carbon Dioxide (22-30) mmol/L Anion Gap mmol/L BUN (9-20) mg/dL Creatinine (0.66-1.25) mg/dL Est GFR (MDRD) Af Amer (>60 ml/min/1.73 sqM) Est GFR (MDRD) Non-Af (>60 ml/min/1.73 sqM) Glucose (74-99) mg/dL Plasma Lactic Acid Hernán 1.1 (0.7-2.0) mmol/L Calcium (8.4-10.2) mg/dL Magnesium (1.6-2.3) mg/dL Total Bilirubin (0.2-1.3) mg/dL AST (17-59) U/L ALT (21-72) U/L Alkaline Phosphatase (38-126) U/L Total Creatine Kinase (55-170) U/L CK-MB (CK-2) (0.0-2.4) ng/mL CK-MB (CK-2) Rel Index Troponin I (0.000-0.034) ng/mL NT-Pro-B Natriuret Pep 294 pg/mL Total Protein (6.3-8.2) g/dL Albumin (3.5-5.0) g/dL Lipase (23-300) U/L Disposition Clinical Impression: Left leg cellulitis, Fever, Sepsis, Leukocytosis, Chest pain Disposition: ADMITTED IP TO THIS HOSP Condition: Serious
[2017-07-31 10:11] LABS: Basophils # (A) 0.1 k/uL (0-0.2); Basophils % (A) 0 %; Eosinophils % (A) 0 %; HCT 39.2 % (39.0-53.0); HGB 12.8 gm/dL (13.0-17.5); Lymphocytes # (A) 1.8 k/uL (1.0-4.8); Lymphocytes % (A) 8 %; MCH 29.3 pg (25.0-35.0); MCHC 32.6 g/dL (31.0-37.0); MCV 90.1 fL (80.0-100.0); Monocytes # (A) 0.6 k/uL (0-1.0); Monocytes % (A) 3 %; Neutrophils # (A) 20.9 k/uL (1.3-7.7); Neutrophils % (A) 89 %; Platelet Count 116 k/uL (150-450); RBC 4.36 m/uL (4.30-5.90); RDW 13.5 % (11.5-15.5); WBC 23.7 k/uL (3.8-10.6)
[2017-07-31 10:25] LABS: ALT 41 U/L (21-72); AST 79 U/L (17-59); Albumin 2.9 g/dL (3.5-5.0); Alkaline Phosphatase 43 U/L (38-126); Anion Gap 7 mmol/L; Blood Urea Nitrogen 33 mg/dL (9-20); Calcium 8.4 mg/dL (8.4-10.2); Carbon Dioxide 29 mmol/L (22-30); Chloride 95 mmol/L (98-107); Glucose 100 mg/dL (74-99); Lipase 21 U/L (23-300); Magnesium 1.5 mg/dL (1.6-2.3); Potassium 3.9 mmol/L (3.5-5.1); Sodium 131 mmol/L (137-145); Total Bilirubin 0.8 mg/dL (0.2-1.3); Total Protein 5.6 g/dL (6.3-8.2)
[2017-07-31 10:29] LABS: INR 1.1 (<1.2); Partial Thromboplastin Time 27.1 sec (22.0-30.0); Prothrombin Time 10.9 sec (9.0-12.0)
[2017-07-31] MEDS ORDERED: MORPHINE SULFATE 4 MG/ML SYRINGE IVP STA (10:29)
--- NOTE | 2017-07-31 10:34 | XR ---
EXAMINATION TYPE: XR chest 2V DATE OF EXAM: 07/31/2017 COMPARISON: 05/16/2017 INDICATION: Chest pain TECHNIQUE: Frontal and lateral views of the chest are obtained. FINDINGS: The heart size is normal. The pulmonary vasculature is normal. The lungs are clear. Pacemaker is over the left chest. IMPRESSION: 1. No acute pulmonary process.
[2017-07-31] MEDS ORDERED: VANCOMYCIN 2,500 MG in SODIUM CHLORIDE 0.9% 500 ML IVPB STA (10:41)
[2017-07-31 10:46] LABS: Creatine Kinase MB 2.4 ng/mL (0.0-2.4); Troponin I 0.014 ng/mL (0.000-0.034)
--- NOTE | 2017-07-31 11:15 | US ---
EXAMINATION TYPE: US venous doppler duplex LE LT DATE OF EXAM: 07/31/2017 11:05 AM COMPARISON: NONE CLINICAL HISTORY: Pain. Left lower leg redness/edema/pain. Patient currently on Plavix - history of c ardiac stents SIDE PERFORMED: left TECHNIQUE: The lower extremity deep venous system is examined utilizing real time linear array sonog daniel with graded compression, doppler sonography and color-flow sonography. VESSELS IMAGED: External Iliac Vein (EIV) Common Femoral Vein Deep Femoral Vein Greater Saphenous Vein * Femoral Vein Popliteal Vein Small Saphenous Vein * Proximal Calf Veins (* superficial vessels) Left Leg: *Extreme technical limitations due to patient's body habitus - 390 pounds. Difficult to ev aluate veins within groin. No evidence of acute DVT as visualized IMPRESSION: 1. No left lower extremity deep venous thrombosis to the level assessable on this exam.
--- NOTE | 2017-07-31 12:03 | XR ---
EXAMINATION TYPE: XR tibia fibula LT DATE OF EXAM: 07/31/2017 COMPARISON: NONE HISTORY: Pain swelling TECHNIQUE: 2 view left tibia and fibula FINDINGS: No acute fractures are evident. There is prominent soft tissue swelling over the medial mal leolus. Some milder soft tissue swelling may be over the lateral views. Large plantar and Achilles tendon calcaneal heel spurs are present. Some lucency may be within the navicular along its superior aspect. Consider additional evaluation wi foot x-ray. IMPRESSION: 1. There is some lucency partially visualized superior to the navicular on the lateral projection. I maging of the foot is recommended for additional evaluation. 2. Large calcaneal heel spurs. 3. Soft tissue swelling over the ankle greater along the medial aspect.
[2017-07-31] MEDS ORDERED: TEMAZEPAM 15 MG CAP PO PRN (13:08)
[2017-07-31] MEDS ORDERED: HYDROcodone/APAP 5-325MG 1 EACH TAB PO PRN (13:08)
[2017-07-31] MEDS: HYDROcodone/APAP 7.5-325MG 1 EACH TAB PO PRN ×2 (14:33→18:35)
[2017-07-31] MEDS: ISOSORBIDE MONONITRATE ER 60 MG TAB.ER.24H PO SCH (14:42)
[2017-07-31] MEDS: LOSARTAN 50 MG TAB PO SCH (14:42)
[2017-07-31] MEDS: FLUCONAZOLE IN NACL,ISO-OSM 200 MG in SALINE 1 100ML.BAG IVPB SCH (14:57)
[2017-07-31] MEDS: IPRATROPIUM 0.5 MG/2.5 ML NEBU INHALATION SCH ×2 (15:17→19:08)
[2017-07-31] MEDS: ALBUTEROL NEB (CONC) 2.5 MG/0.5 ML INHALATION SCH ×2 (15:17→19:08)
[2017-07-31] MEDS ORDERED: ceFAZolin 2,000 MG in DEXTROSE/WATER 1 50ML.BAG IVPB SCH (16:00)
[2017-07-31] MEDS ORDERED: CLINDAMYCIN 600 MG in DEXTROSE 5% IN WATER 50 ML IVPB SCH ×2 (16:00)
[2017-07-31] MEDS: cloNIDine HCL 0.2 MG TAB PO SCH (16:34)
[2017-07-31] MEDS: ceFAZolin IN SWFI 2 GM/20 ML SYRINGE IVP SCH (16:34)
--- NOTE | 2017-07-31 16:43 | HP ---
HISTORY AND PHYSICAL CHIEF COMPLAINTS: Cellulitis of the left leg and shortness of breath. HISTORY OF THE PRESENT ILLNESS: This 61-year-old gentleman with a past medical history of multiple medical problems including history of CAD, COPD, CVA, TIA, hypertension, hyperlipidemia, history of myocardial infarction, history of DJD, sleep apnea being followed by Dr. Cuadra in the outpatient setting was complaining of shortness of breath. The patient apparently woke up this morning and had redness and swelling of the left leg which was rapidly spreading inwards. The patient also had multiple candidal lesions apparently between the intertrigo of the feet and as well as groin and as well as axilla. The patient is using nystatin cream for that. There is no history of fever, rigors or chills. No history of headache, loss of consciousness or seizures at this time. PAST MEDICAL HISTORY: History of CAD, history of COPD, CVA/TIA, hypertension, hyperlipidemia; myocardial infarction, DJD, history of AICD/stent. MEDICATIONS: Prior to admission include home medications are: 1. Catapres 0.2 q.8. 2. K-Dur 20 mEq p.o. daily. 3. MiraLAX 17 g daily. 4. Nystatin 1 application b.i.d. 5. Lopressor 25 mg p.o. b.i.d. 6. Cozaar 50 mg b.i.d. 7. Imdur 60 mg b.i.d. 8. DuoNeb q.i.d. and p.r.n. 9. Spencer 7.5 q.4h p.r.n. 10.Lasix 40 mg p.o. b.i.d. 11.Breo Ellipta 1 puff daily. 12.Pepcid 20 mg p.o. b.i.d. 13.Plavix 75 mg daily. 14.Lipitor 40 mg p.o. daily. 15.Aspirin 81 mg p.o. daily. 16.Ventolin HFA 2.5 q.i.d. p.r.n. ALLERGIES: None. FAMILY HISTORY: Family history of DJD, neurological disease, Parkinson's. SOCIAL HISTORY: History of smoking. No history of alcohol intake. REVIEW OF SYSTEMS: ENT: No diminished hearing or vision. CARDIOVASCULAR: No angina or palpitations. RESPIRATORY: As mentioned earlier. GI: No nausea or vomiting. no dysuria. Nervous system: No numbness, weakness. Allergy/Immunology: No asthma or hayfever. Musculoskeletal: As mentioned earlier. Hematology/Oncology: No history of anemia. Dermatology: Negative. Rheumatology: Negative. Constitutional: As mentioned earlier. Psychiatric: As mentioned earlier. PHYSICAL EXAMINATION: The patient is alert and oriented x3. Pulse is 103, blood pressure 129/94, respiration 22, temperature 98 degrees, pulse ox 91% on 3 L. HEENT: Conjunctivae normal. Oral mucosa moist. Neck is no jugular venous distention. No carotid bruit. No lymph node enlargement. Cardiovascular system: S1, S2 normal. No S3, no S4. Respiratory : Breath sounds diminished in the bases. A few scattered rhonchi and crackles. Expiratory wheezing and bilateral crackles and prolonged expiration also present. ABDOMEN: Soft, nontender. No mass palpable. No guarding or organomegaly. No ascites. Extremities: Left leg significant cellulitis extending from the dorsum through the medial aspect with some lymphangitis and also skin diffuse candidal lesions also present. LAB STUDIES: WBC 20.6, hemoglobin 12.8, sodium is 131. Lactic acid is 1.1. ASSESSMENT: 1. Acute cellulitis of the left leg with lymphangitis with early sepsis. 2. Chronic obstructive pulmonary disease acute exacerbation with acute purulent tracheobronchitis. 3. Hyponatremia. 4. Increased WBC. 5. Anemia, normocytic anemia of chronic disease. 6. Hypomagnesemia. 7. Increased creatinine kinase with mild rhabdomyolysis. 8. History of chronic obstructive pulmonary disease, history of cerebrovascular accident, transient ischemic attack. 9. History of coronary artery disease. 10.History of hypertension. 11.History of hyperlipidemia. 12.History of sleep apnea. 13.History of obesity hypoventilation syndrome. 14.History of congestive heart failure with cor pulmonale. 15.AICD. 16.Coronary artery disease, stent. 17.Obesity with body mass of 52.9. RECOMMENDATIONS AND DISCUSSION: In this 61-year-old gentleman who presented with multiple complex medical issues , we will monitor the patient closely continue the current medications, continue symptomatic treatment. We will initiate broad-spectrum IV antibiotics and patient's evaluation. Otherwise, I would also recommend bronchodilators and empiric antibiotics also. Guarded prognosis because of multiple complex medical issues. Further recommendations to follow. MMODL / IJN: [id number] / MTDD
[2017-07-31] MEDS: CLINDAMYCIN 900 MG in DEXTROSE 5% IN WATER 50 ML IVPB SCH ×2 (17:15)
[2017-07-31] MEDS: FUROSEMIDE 40 MG TAB PO SCH (17:15)
[2017-07-31] MEDS: FORMOTEROL FUMARATE 20 MCG/2 ML NEBU INHALATION SCH (19:08)
[2017-07-31] MEDS: BUDESONIDE 1 MG/2 ML NEBU INHALATION SCH (19:08)
--- NOTE | 2017-07-31 20:16 | CONS ---
CONSULTATION DATE OF SERVICE: 07/31/2017 REASON FOR CONSULTATION: Left lower extremity cellulitis. HISTORY OF PRESENT ILLNESS: The patient is a 61-year-old male presenting to the ER with chief complaint of left leg swelling, redness and pain. His symptoms started this morning when he woke up complaining of pain to the left leg same duration. It is more of a sharp pain, almost 7 to 8/10, and no radiation. He denies having any skin breakdown or any trauma to the leg and did have progression of the swelling involving the whole left leg area, which is erythematous. The patient did have a fever and chills. With these symptoms, the patient presented to the [facility] ER. The patient has been evaluated by the ER physician. The patient did have a lower extremity Doppler that was negative for DVT. The patient was started on oral vancomycin and admitted hospital. ID was consulted for further recommendation of antibiotic therapy. Patient also complaining of having a yeast infection in the armpit and groin area. At home the patient used nystatin powder without any improvement. No medication for the same. REVIEW OF SYSTEMS: Constitutional: Positive for weakness along with a fever of 100.4. Eyes: No complaint. ENT: No complaint. Respiratory: No complaint. Cardiovascular: No complaint. Genitourinary: No complaint. Gastrointestinal: No complaint. Musculoskeletal: No complaint. Integumentary: As per HPI. Psychological: No complaint. Endocrine: No complaint. Neurologic: No complaint. PAST MEDICAL HISTORY: Significant for coronary disease, COPD, CVA ,TIA, hypertension, hyperlipidemia, [place], osteoarthritis, sleep apnea, morbid obesity. PAST SURGICAL HISTORY: AICD placement, heart catheterization with stent, hernia repair. SOCIAL HISTORY: Current everyday smoker. No drinking or drug use. FAMILY HISTORY: Father history of Parkinson's disease. Mother with history of OR, at age of 50 from massive OR. ALLERGIES: No known drug allergies. MEDICATIONS: The patient is currently on [place], Ventolin, Xanax, aspirin, Lipitor, Pulmicort, cefazolin 2 g q.8h, Catapres, fluconazole, Lasix, heparin, Imdur, Cozaar, Lopressor, Theragran, nystatin powder, Protonix, MiraLAX, K-Dur, and Restoril. EXAMINATION: Blood pressure is 129/94 with a pulse of 103, temperature of 98, T-max 100.4. He is 91% on 2 L nasal cannula. General description is an elderly male lying in bed in no distress. No tachypnea or accessory muscle of respiration use. HEENT: Shows no pallor or scleral icterus. Oral mucosa membranes moist. No pharyngeal erythema or thrush. NECK: Trachea central. No thyromegaly. LUNGS: Unlabored breathing, clear to auscultation. No wheeze or crackle. HEART: S1, S2. Regular rate and rhythm. ABDOMEN: Soft, no tenderness, no organomegaly. EXTREMITIES: No edema feet. Examination of the left leg is swollen and red, which is warm to touch and tender. No evidence of athlete's foot. No skin breakdown. No drainage. Neurologically, the patient is awake, alert, oriented x3. Mood and affect normal. LABS: Hemoglobin is 12.8, white count 23.7 with a BUN of 33, creatinine 1.05. CKs were elevated at 112. Lactic acid was 1.1. DIAGNOSTIC IMPRESSION AND PLAN: Patient with sepsis and patient presented to the hospital with acute left leg swelling and redness along with a fever of 100.4 with diffuse swelling, redness it was a streptococcal disease and also has been negative for DVT. PLAN: 1. Willy the area of redness . 2. Cefazolin 2 g q.8 hours. We will add clindamycin 900 mg q.8 with severe streptococcal cellulitis. 3. Gentle IV fluid. 4. Keep the leg elevated. 5. Depending upon his clinical response further if needed. Thank you for this consultation. I will follow the patient along with you. MMODL / IJN: [id number] /
[2017-07-31] MEDS ORDERED: VANCOMYCIN 2,500 MG in SODIUM CHLORIDE 0.9% 500 ML IVPB SCH (21:00)
[2017-07-31] MEDS: HEPARIN SODIUM,PORCINE 5,000 UNIT/ML 1 ML VIAL SQ SCH (21:03)
[2017-07-31] MEDS: METOPROLOL TARTRATE 25 MG TAB PO SCH (21:03)
[2017-07-31] MEDS: NYSTATIN 100,000 UNIT/GM POWD 15 GM TOPICAL SCH (21:04)
[2017-08-01] MEDS: ceFAZolin IN SWFI 2 GM/20 ML SYRINGE IVP SCH ×4 (00:04→23:09)
[2017-08-01] MEDS: CLINDAMYCIN 900 MG in DEXTROSE 5% IN WATER 50 ML IVPB SCH ×8 (00:06→23:10)
[2017-08-01] MEDS: cloNIDine HCL 0.2 MG TAB PO SCH ×3 (00:58→17:20)
[2017-08-01] MEDS: HYDROcodone/APAP 7.5-325MG 1 EACH TAB PO PRN ×3 (01:13→09:35)
[2017-08-01] MEDS: FUROSEMIDE 40 MG TAB PO SCH ×2 (05:42→17:20)
[2017-08-01 07:52] LABS: Basophils % (A) 0 %; Eosinophils % (A) 0 %; HCT 37.1 % (39.0-53.0); HGB 11.8 gm/dL (13.0-17.5); Lymphocytes # (A) 1.1 k/uL (1.0-4.8); Lymphocytes % (A) 7 %; MCH 29.7 pg (25.0-35.0); MCHC 31.8 g/dL (31.0-37.0); MCV 93.4 fL (80.0-100.0); Monocytes # (A) 0.5 k/uL (0-1.0); Monocytes % (A) 3 %; Neutrophils # (A) 15.2 k/uL (1.3-7.7); Neutrophils % (A) 89 %; Platelet Count 112 k/uL (150-450); RBC 3.98 m/uL (4.30-5.90); RDW 13.7 % (11.5-15.5); WBC 17.2 k/uL (3.8-10.6)
[2017-08-01 08:10] LABS: Anion Gap 8 mmol/L; Blood Urea Nitrogen 32 mg/dL (9-20); Calcium 8.3 mg/dL (8.4-10.2); Carbon Dioxide 33 mmol/L (22-30); Chloride 93 mmol/L (98-107); Creatine Kinase 695 U/L (55-170); Glucose 93 mg/dL (74-99); Potassium 3.8 mmol/L (3.5-5.1); Sodium 134 mmol/L (137-145)
[2017-08-01] MEDS: POLYETHYLENE GLYCOL 3350 17 GM POWD.PACK PO SCH (08:22)
[2017-08-01] MEDS: NYSTATIN 100,000 UNIT/GM POWD 15 GM TOPICAL SCH ×2 (08:22→20:51)
[2017-08-01] MEDS: ISOSORBIDE MONONITRATE ER 60 MG TAB.ER.24H PO SCH (08:23)
[2017-08-01] MEDS: LOSARTAN 50 MG TAB PO SCH (08:23)
[2017-08-01] MEDS: HEPARIN SODIUM,PORCINE 5,000 UNIT/ML 1 ML VIAL SQ SCH ×2 (08:23→20:51)
[2017-08-01] MEDS: CLOPIDOGREL 75 MG TAB PO SCH (08:23)
[2017-08-01] MEDS: METOPROLOL TARTRATE 25 MG TAB PO SCH ×2 (08:24→20:51)
[2017-08-01] MEDS: POTASSIUM CHLORIDE ER 20 MEQ TAB.ER PO SCH (08:24)
[2017-08-01] MEDS: PANTOPRAZOLE 40 MG TABLET PO SCH (08:24)
[2017-08-01] MEDS: ATORVASTATIN 40 MG TAB PO SCH (08:25)
[2017-08-01] MEDS: ASPIRIN 81 MG PO SCH (08:25)
[2017-08-01] MEDS: ALBUTEROL NEB (CONC) 2.5 MG/0.5 ML INHALATION SCH ×4 (08:43→19:20)
[2017-08-01] MEDS: IPRATROPIUM 0.5 MG/2.5 ML NEBU INHALATION SCH ×4 (08:43→19:20)
[2017-08-01] MEDS: BUDESONIDE 1 MG/2 ML NEBU INHALATION SCH ×2 (08:44→19:20)
[2017-08-01] MEDS: FORMOTEROL FUMARATE 20 MCG/2 ML NEBU INHALATION SCH ×2 (08:44→19:20)
[2017-08-01] MEDS: FLUCONAZOLE IN NACL,ISO-OSM 200 MG in SALINE 1 100ML.BAG IVPB SCH (11:33)
[2017-08-01] MEDS: MULTIVITAMINS, THERA 1 EACH TAB PO SCH (11:33)
[2017-08-01] MEDS: HYDROcodone/APAP 10-325MG 1 EACH TAB PO PRN (14:21)
--- NOTE | 2017-08-01 20:11 | PN ---
PROGRESS NOTE DATE OF SERVICE: 08/01/2017. INTERVAL HISTORY: This 61-year-old gentleman who was admitted with acute cellulitis of the left leg also had lymphangitis and multiple fungal lesions also. No chest pain. No palpitations. Patient started on broad-spectrum IV antibiotics. The patient also had a tibia-fibula x-ray which showed no fractures so far. The patient is on broad-spectrum IV antibiotics. No chest pain. No palpitations. No fever. PHYSICAL EXAM: Alert and oriented x3. The pulse is 78. Blood pressure 104/56, respirations 16, temperature 98 degrees, pulse ox 93% on room air. HEENT: Conjunctivae normal. Neck: No jugular venous distention. Cardiovascular: S1, S2. Respirations: Breath sounds diminished at the bases. No rhonchi and no crackles. ABDOMEN: Soft, nontender. No mass palpable. Legs are no edema. No swelling. Central nervous system: No focal deficits. LABS: WBC 17.1, hemoglobin 11.8, sodium 134. ASSESSMENT: 1. Acute cellulitis of the left leg with lymphangitis and early sepsis. 2. Chronic obstructive pulmonary disease, acute exacerbation with acute purulent tracheobronchitis. 3. Hyponatremia. 4. Increased WBC. 5. Anemia, normocytic anemia of chronic disease. 6. Hypomagnesemia. 7. Increased creatinine kinase with mild rhabdomyolysis. 8. Chronic obstructive pulmonary disease. 9. History of cerebrovascular accident, transient ischemic attack. 10.History of coronary artery disease. 11.History of hypertension. 12.Hyperlipidemia. 13.History of sleep apnea. 14.History of obesity hypoventilation syndrome. 15.History of congestive heart failure and cor pulmonale. 16.History of AICD. 17.History of coronary artery disease/stent. 18.Obesity with body mass index of 52.9. RECOMMENDATIONS AND DISCUSSION: Recommend to continue current management. Continue symptomatic treatment. Continue IV antibiotics. Repeat labs in the morning. Also recommend x-ray of the left foot also. MMODL / IJN: [id number] /
--- NOTE | 2017-08-01 20:25 | XR ---
EXAMINATION TYPE: XR foot complete LT DATE OF EXAM: 08/01/2017 COMPARISON: 01/06/2013 HISTORY: Left foot pain and cellulitis TECHNIQUE: Three-view left foot FINDINGS: Joint spaces appear preserved. No acute fractures evident. No suspicious cortical erosion t o suggest osteomyelitis is identified. There is prominent soft tissue swelling over the distal foot e specially over the dorsum of the foot. Large plantar spur is present. Achilles tendon spur is also pr esent. IMPRESSION: 1. Prominent soft tissue swelling distal foot. 2. Cortical erosion to suggest osteomyelitis is not identified
[2017-08-01] MEDS: ALPRAZolam 0.25 MG TAB PO PRN (20:50)
[2017-08-01] MEDS: FAMOTIDINE 20 MG TAB PO SCH (20:51)
--- NOTE | 2017-08-01 23:29 | PN ---
PROGRESS NOTE DATE OF SERVICE: 08/01/2017. REASON FOR FOLLOWUP: Left leg cellulitis, groin area candidiasis. INTERVAL HISTORY: The patient overall feels better and has improved. He is breathing comfortably. Denies having any chest pain, shortness of breath, cough. Left leg pain and cellulitis is slightly improved with no open areas and no drainage. No diarrhea. EXAMINATION: Blood pressure 93/42 with a pulse of 87, temperature 98.1, he is 92% on 3 L nasal cannula. GENERAL DESCRIPTION: A middle-aged male lying in bed in no distress. RESPIRATORY SYSTEM: Unlabored breathing. Clear to auscultation. HEART: S1, S2. Regular rate and rhythm. ABDOMEN: Soft. No tenderness. EXTREMITIES: Left leg swelling, persistent redness, slightly decreased LAB: Hemoglobin is 9.8, white count 17.2, BUN of 32, creatinine 1.09. DIAGNOSTIC IMPRESSION AND PLAN: 1. Patient with left lower extremity cellulitis, extensive, with abscess. Patient will continue with cefazolin and clindamycin. Manpreet wrap to keep the swelling down. 2. Patient with bilateral pitting groin area candidiasis, miconazole cream twice a day. Continue supportive care. MMODL / IJN: [id number] /
[2017-08-02] MEDS: HYDROcodone/APAP 10-325MG 1 EACH TAB PO PRN ×4 (00:16→22:00)
[2017-08-02] MEDS: cloNIDine HCL 0.2 MG TAB PO SCH ×3 (00:18→15:59)
[2017-08-02] MEDS: FUROSEMIDE 40 MG TAB PO SCH ×2 (05:59→17:26)
[2017-08-02] MEDS: PANTOPRAZOLE 40 MG TABLET PO SCH (07:00)
[2017-08-02 07:34] LABS: Basophils % (A) 0 %; Eosinophils # (A) 0.1 k/uL (0-0.7); Eosinophils % (A) 1 %; HCT 38.3 % (39.0-53.0); HGB 12.7 gm/dL (13.0-17.5); Lymphocytes # (A) 1.1 k/uL (1.0-4.8); Lymphocytes % (A) 8 %; MCH 29.5 pg (25.0-35.0); MCHC 33.2 g/dL (31.0-37.0); Mean Platelet Volume 7.9; Monocytes # (A) 0.4 k/uL (0-1.0); Monocytes % (A) 3 %; Neutrophils # (A) 11.6 k/uL (1.3-7.7); Neutrophils % (A) 87 %; Platelet Count 118 k/uL (150-450); RDW 13.3 % (11.5-15.5); WBC 13.4 k/uL (3.8-10.6)
[2017-08-02 07:45] LABS: Anion Gap 9 mmol/L; Blood Urea Nitrogen 21 mg/dL (9-20); Calcium 8.9 mg/dL (8.4-10.2); Carbon Dioxide 36 mmol/L (22-30); Chloride 92 mmol/L (98-107); Creatine Kinase 548 U/L (55-170); Glucose 82 mg/dL (74-99); Potassium 3.7 mmol/L (3.5-5.1); Sodium 137 mmol/L (137-145)
[2017-08-02] MEDS: POLYETHYLENE GLYCOL 3350 17 GM POWD.PACK PO SCH (07:51)
[2017-08-02] MEDS: CLINDAMYCIN 900 MG in DEXTROSE 5% IN WATER 50 ML IVPB SCH ×4 (07:52→15:58)
[2017-08-02] MEDS: ceFAZolin IN SWFI 2 GM/20 ML SYRINGE IVP SCH ×2 (07:52→15:58)
[2017-08-02] MEDS: HEPARIN SODIUM,PORCINE 5,000 UNIT/ML 1 ML VIAL SQ SCH ×2 (07:57→22:07)
[2017-08-02] MEDS: POTASSIUM CHLORIDE ER 20 MEQ TAB.ER PO SCH (07:57)
[2017-08-02] MEDS: FAMOTIDINE 20 MG TAB PO SCH ×2 (07:57→22:07)
[2017-08-02] MEDS: METOPROLOL TARTRATE 25 MG TAB PO SCH ×2 (07:57→22:07)
[2017-08-02] MEDS: LOSARTAN 50 MG TAB PO SCH (07:58)
[2017-08-02] MEDS: ASPIRIN 81 MG PO SCH (07:58)
[2017-08-02] MEDS: MICONAZOLE NITRATE 2% CREAM 14 GM TUBE TOPICAL SCH ×2 (07:58→22:08)
[2017-08-02] MEDS: ISOSORBIDE MONONITRATE ER 60 MG TAB.ER.24H PO SCH (07:58)
[2017-08-02] MEDS: CLOPIDOGREL 75 MG TAB PO SCH (07:58)
[2017-08-02] MEDS: ATORVASTATIN 40 MG TAB PO SCH (07:58)
[2017-08-02] MEDS: BUDESONIDE 1 MG/2 ML NEBU INHALATION SCH ×2 (08:32→19:45)
[2017-08-02] MEDS: ALBUTEROL NEB (CONC) 2.5 MG/0.5 ML INHALATION SCH ×4 (08:32→19:45)
[2017-08-02] MEDS: IPRATROPIUM 0.5 MG/2.5 ML NEBU INHALATION SCH ×4 (08:32→19:45)
[2017-08-02] MEDS: FORMOTEROL FUMARATE 20 MCG/2 ML NEBU INHALATION SCH ×2 (08:32→19:45)
[2017-08-02] MEDS: NYSTATIN 100,000 UNIT/GM POWD 15 GM TOPICAL SCH ×2 (10:00→22:08)
[2017-08-02] MEDS: FLUCONAZOLE IN NACL,ISO-OSM 200 MG in SALINE 1 100ML.BAG IVPB SCH (11:43)
[2017-08-02] MEDS: MULTIVITAMINS, THERA 1 EACH TAB PO SCH (11:43)
--- NOTE | 2017-08-02 18:27 | PN ---
PROGRESS NOTE DATE OF SERVICE: 08/02/2017 This 61-year-old gentleman admitted with acute cellulitis of the left leg is also complaining of severe pain at this time. The patient is on broad-spectrum IV antibiotics. A foot x-ray was done which showed soft tissue swelling but no other significant issues. Cultures are negative at this time. No chest pain. No palpitations. No fever. On exam, alert and oriented x3. The pulse is 84, blood pressure 135/88, respiration 24, temperature 97.6, pulse ox 94% on 2 L. HEENT: Conjunctivae normal. Oral mucosa moist. NECK: No jugular venous distention. No carotid bruit. No lymph node enlargement. CARDIOVASCULAR SYSTEM: S1, S2 muffled. No S3. No S4. RESPIRATORY SYSTEM: Breath sounds diminished at the bases. A few scattered rhonchi. No crackles. ABDOMEN: Soft, obese, nontender. LEGS: Left leg cellulitis. NERVOUS SYSTEM: No focal deficit. LABS: WBC 13.4, hemoglobin 12.7, sodium 137, creatine kinase 548. ASSESSMENT: 1. Acute cellulitis of the left leg with lymphangitis and early sepsis, improving. 2. Chronic obstructive pulmonary disease, acute exacerbation, with acute purulent bronchitis. 3. Severe pain of the left leg. 4. Gait dysfunction. 5. Hyponatremia. 6. Increased white count. 7. Anemia, normocytic; anemia of chronic disease. 8. Hypomagnesemia. 9. Increased creatine kinase with mild rhabdomyolysis. 10.Chronic obstructive pulmonary disease. 11.Cerebrovascular accident, transient ischemic attack. 12.History of coronary artery disease. 13.Hypertension. 14.Hyperlipidemia. 15.History of sleep apnea. 16.History of obesity hypoventilation syndrome. 17.History of congestive heart failure with cor pulmonale. 18.History of AICD. 19.History of coronary artery disease, stent. 20.Obesity with body mass index of 52.9. RECOMMENDATIONS AND DISCUSSION: I recommend to continue current medication, continue with the monitoring, symptomatic treatment. I would also recommend PT/OT evaluation and pain medications, DVT prophylaxis. Closely follow with Infectious Disease. Further recommendations to follow. MMODL / IJN: [id number] /
[2017-08-02] MEDS ORDERED: IPRATROPIUM-ALBUTEROL 3 ML NEB INHALATION PRN (20:12)
--- NOTE | 2017-08-02 21:36 | PN ---
PROGRESS NOTE DATE OF SERVICE: 08/02/2017 REASON FOR FOLLOWUP: Left leg cellulitis and cutaneous candidiasis. INTERVAL HISTORY: The patient is afebrile. He has been breathing comfortably. Denies having any chest pain, shortness of breath or cough. No abdominal pain. Pain to the left leg has slightly decreased. No nausea, vomiting or diarrhea. PHYSICAL EXAMINATION: Blood pressure 135/88 with a pulse of 84, temperature 97.3. He is 94% on 2 L nasal cannula. General description is a middle-aged male lying in bed in no distress. RESPIRATORY SYSTEM: Unlabored breathing. Clear to auscultation anteriorly. HEART: S1, S2. Regular rate and rhythm. ABDOMEN: Soft. No tenderness. Left leg swelling is there. Redness has decreased. LABS: Hemoglobin is 12.7, white count 13.4 with a BUN of 21, creatinine 0.92. Blood culture has been negative. DIAGNOSTIC IMPRESSION AND PLAN: 1. Patient admitted to hospital with sepsis with left lower extremity cellulitis, diffuse swelling and redness, likely streptococcal disease. The patient will be kept on the cefazolin and clindamycin, to which he seems to have responded with resolution of fever, and white count has improved. If the patient continues oral antibiotic. 2. Patient with extensive candidiasis of the groin area. Continue with miconazole cream. Continue with supportive care. MMODL / IJN: [id number] /
[2017-08-02] MEDS: ALPRAZolam 0.25 MG TAB PO PRN (22:08)
[2017-08-03] MEDS: ceFAZolin IN SWFI 2 GM/20 ML SYRINGE IVP SCH ×4 (00:11→22:56)
[2017-08-03] MEDS: CLINDAMYCIN 900 MG in DEXTROSE 5% IN WATER 50 ML IVPB SCH ×8 (00:26→22:57)
[2017-08-03] MEDS: cloNIDine HCL 0.2 MG TAB PO SCH ×3 (00:38→16:21)
[2017-08-03] MEDS: HYDROcodone/APAP 10-325MG 1 EACH TAB PO PRN ×4 (04:05→21:54)
[2017-08-03] MEDS: FUROSEMIDE 40 MG TAB PO SCH ×2 (06:02→17:23)
[2017-08-03] MEDS: IPRATROPIUM-ALBUTEROL 3 ML NEB INHALATION SCH ×4 (07:50→22:00)
[2017-08-03] MEDS: BUDESONIDE 1 MG/2 ML NEBU INHALATION SCH ×2 (07:50→22:00)
[2017-08-03] MEDS: FORMOTEROL FUMARATE 20 MCG/2 ML NEBU INHALATION SCH ×2 (07:50→22:00)
[2017-08-03 08:23] LABS: Basophils % (A) 0 %; Eosinophils # (A) 0.1 k/uL (0-0.7); Eosinophils % (A) 1 %; HCT 36.5 % (39.0-53.0); HGB 11.6 gm/dL (13.0-17.5); Lymphocytes # (A) 1.2 k/uL (1.0-4.8); Lymphocytes % (A) 10 %; MCH 28.9 pg (25.0-35.0); MCHC 31.8 g/dL (31.0-37.0); MCV 90.6 fL (80.0-100.0); Mean Platelet Volume 7.9; Monocytes # (A) 0.7 k/uL (0-1.0); Monocytes % (A) 6 %; Neutrophils # (A) 10.5 k/uL (1.3-7.7); Neutrophils % (A) 83 %; Platelet Count 154 k/uL (150-450); RBC 4.03 m/uL (4.30-5.90); RDW 13.7 % (11.5-15.5); WBC 12.7 k/uL (3.8-10.6)
[2017-08-03] MEDS: PANTOPRAZOLE 40 MG TABLET PO SCH (08:28)
[2017-08-03] MEDS: POLYETHYLENE GLYCOL 3350 17 GM POWD.PACK PO SCH (08:29)
[2017-08-03] MEDS: MICONAZOLE NITRATE 2% CREAM 14 GM TUBE TOPICAL SCH ×2 (08:29→21:20)
[2017-08-03] MEDS: ATORVASTATIN 40 MG TAB PO SCH (08:30)
[2017-08-03] MEDS: CLOPIDOGREL 75 MG TAB PO SCH (08:30)
[2017-08-03] MEDS: FAMOTIDINE 20 MG TAB PO SCH ×2 (08:30→21:20)
[2017-08-03] MEDS: ASPIRIN 81 MG PO SCH (08:30)
[2017-08-03] MEDS: HEPARIN SODIUM,PORCINE 5,000 UNIT/ML 1 ML VIAL SQ SCH ×2 (08:31→21:20)
[2017-08-03] MEDS: ISOSORBIDE MONONITRATE ER 60 MG TAB.ER.24H PO SCH (08:31)
[2017-08-03] MEDS: LOSARTAN 50 MG TAB PO SCH (08:31)
[2017-08-03] MEDS: NYSTATIN 100,000 UNIT/GM POWD 15 GM TOPICAL SCH ×2 (08:32→21:20)
[2017-08-03] MEDS: POTASSIUM CHLORIDE ER 20 MEQ TAB.ER PO SCH (08:32)
[2017-08-03] MEDS: ETODOLAC 400 MG TAB PO PRN (08:33)
[2017-08-03 08:41] LABS: Anion Gap 9 mmol/L; Blood Urea Nitrogen 16 mg/dL (9-20); Calcium 8.8 mg/dL (8.4-10.2); Carbon Dioxide 38 mmol/L (22-30); Chloride 91 mmol/L (98-107); Creatine Kinase 215 U/L (55-170); Glucose 90 mg/dL (74-99); Potassium 3.9 mmol/L (3.5-5.1); Sodium 138 mmol/L (137-145)
[2017-08-03] MEDS: METOPROLOL TARTRATE 25 MG TAB PO SCH ×2 (09:19→21:54)
[2017-08-03] MEDS: FLUCONAZOLE IN NACL,ISO-OSM 200 MG in SALINE 1 100ML.BAG IVPB SCH (12:10)
[2017-08-03] MEDS: MULTIVITAMINS, THERA 1 EACH TAB PO SCH (12:10)
[2017-08-03] MEDS ORDERED: RX INFO: IV CONTRAST WAS GIVEN 1 EACH MISC MISCELLANE PRN (12:30)
--- NOTE | 2017-08-03 14:04 | PN ---
PROGRESS NOTE DATE OF SERVICE: 08/03/2017 REASON FOR FOLLOWUP: Left leg cellulitis. INTERVAL HISTORY: The patient is afebrile. He is still complaining of excruciating pain on the left leg, especially when he puts abdominal walks on it. Patient denies having any chest pain, shortness of breath, no cough, no abdominal pain, and no diarrhea. Has been complaining he has been made to walk to the bathroom and not giving him any urinal and did mention the last time he did have some improvement was with IV Lasix and Bergeron catheter, which he is requesting now. PHYSICAL EXAMINATION: Blood pressure 130/62 with a pulse of 83, temperature of 97.9, he is 95% on 3 L nasal cannula. General description is a middle-aged male lying in bed, in no distress. RESPIRATORY SYSTEM: Unlabored breathing, clear to auscultation anteriorly. HEART: S1, S2. Regular rate and rhythm. ABDOMEN: Soft, no tenderness. Left leg swelling is there, redness slightly decreased, slightly tender to touch. No blister formation. No open wound. LABS: Hemoglobin is 11.4, white count of 12.7, BUN of 16, creatinine 0.90. Blood cultures have been negative. DIAGNOSTIC IMPRESSION AND PLAN: Patient with left lower extremity cellulitis, diffuse swelling, redness, features of streptococcal disease for which the patient is currently covered with Cefazolin and clindamycin and the patient's fever resolved. White count has come down to 12,000 with concern for excruciating pain. CT of the leg will be checked with contrast. His kidney function is normal and adjust medication for that on the basis of the CT report. Continue supportive care. MMODL / IJN: [id number] /
--- NOTE | 2017-08-03 14:56 | CT ---
EXAMINATION TYPE: CT lower leg LT w con DATE OF EXAM: 08/03/2017 COMPARISON: Radiographs 07/31/2017 HISTORY: 61-year-old male with left lower ext swelling and redness TECHNIQUE: Contiguous axial scanning of the left leg from above the knee through the toes performed w ith IV Contrast, patient injected with 100 mL of Omnipaque 300. Coronal/sagittal reconstructions perf ormed. CT DLP: 1454.7 mGycm Automated exposure control for dose reduction was used. FINDINGS: There is moderate to severe diffuse soft tissue swelling throughout the subcutaneous fat. No well-formed rim-enhancing fluid collection identified though some areas of edema such as laterally along the distal leg and ankle are more confluent. No soft tissue gas or edema along the deeper fascial planes. No knee joint effusion. Mild to moderate diffuse muscular atrophy. No acute fracture. No periostitis or osteolysis. IMPRESSION: 1. MODERATE TO SEVERE DIFFUSE SUBCUTANEOUS SOFT TISSUE EDEMA POSSIBLY SECONDARY TO CELLULITIS. 2. SOME AREAS OF EDEMA ARE MORE CONFLUENT SUCH LATERALLY ALONG THE DISTAL LEG AND ANKLE BUT NO DIS CRETE ABSCESS IS IDENTIFIED AT THIS TIME. 3. NO UNDERLYING ACUTE OSSEOUS PATHOLOGY SEEN. 4. NO FINDINGS TO SUGGEST A DEEPER, MORE AGGRESSIVE SOFT TISSUE INFECTION.
--- NOTE | 2017-08-03 21:13 | PN ---
PROGRESS NOTE DATE OF SERVICE: 08/03/2017. INTERVAL HISTORY: This 61-year-old gentleman who was admitted with acute cellulitis of the leg had lymphangitis. The patient also complaining of pain at this time. PT/OT is evaluating the patient for possible ECF rehab at this time. A CT scan of the leg was done which showed [id number] diffuse subcutaneous soft tissue edema, possibly secondary cellulitis with no evidence of any deeper abscess. No chest pain. No palpitations. No fever. EXAM: Alert and oriented x3. Pulse is 81, blood pressure 130/67, respirations 18, temperature 98.2, pulse ox 94% on 3L. HEENT: Conjunctivae normal. NECK: No jugular venous distention. CARDIOVASCULAR: S1, S2 muffled. No S3. No S4. RESPIRATORY: Breath sounds diminished in the bases. A few scattered rhonchi. No crackles. ABDOMEN: Soft, obese, nontender. No mass palpable. LEGS: No edema. No swelling. NERVOUS SYSTEM: Nonfocal. LABS: WBC 12.7, hemoglobin is 11.6. CK is 215, creatine kinase 83014. ASSESSMENT: 1. Acute cellulitis of the left leg with lymphangitis and early sepsis, improving. 2. Chronic obstructive pulmonary disease acute exacerbation with acute purulent tracheobronchitis. 3. Severe pain of the left leg. 4. Gait dysfunction. 5. Hyponatremia. 6. Increased WBC. 7. Anemia, normocytic anemia of chronic disease. 8. Hypomagnesemia. 9. Increased creatine kinase with mild rhabdomyolysis. 10.Chronic obstructive pulmonary disease. 11.Cerebrovascular accident/transient ischemic attack. 12.History of coronary artery disease. 13.Hypertension. 14.Hyperlipidemia. 15.History of sleep apnea. 16.Obesity hypoventilation syndrome. 17.History of congestive heart failure with cor pulmonale. 18.History of automatic implantable cardioverter-defibrillator. 19.History of coronary artery disease, stent. 20.Obesity with body mass index of 52.9. RECOMMENDATIONS AND DISCUSSION: Continue current medical management, continue with symptomatic treatment. Otherwise at this time, continue with antibiotics. Follow closely with Infectious Disease. PT/OT evaluation and possible ECF rehab, to which the patient agreed at this time. Further recommendations to follow. MMODL / IJN: [id number] /
[2017-08-04] MEDS: cloNIDine HCL 0.2 MG TAB PO SCH ×3 (00:41→16:11)
[2017-08-04] MEDS: HYDROcodone/APAP 10-325MG 1 EACH TAB PO PRN ×4 (04:20→23:12)
[2017-08-04] MEDS: FUROSEMIDE 40 MG TAB PO SCH ×2 (05:16→16:46)
[2017-08-04] MEDS: BUDESONIDE 1 MG/2 ML NEBU INHALATION SCH ×2 (07:03→19:29)
[2017-08-04] MEDS: IPRATROPIUM-ALBUTEROL 3 ML NEB INHALATION SCH ×4 (07:03→19:29)
[2017-08-04] MEDS: FORMOTEROL FUMARATE 20 MCG/2 ML NEBU INHALATION SCH ×2 (07:03→19:29)
[2017-08-04] MEDS: ceFAZolin IN SWFI 2 GM/20 ML SYRINGE IVP SCH (07:40)
[2017-08-04] MEDS: PANTOPRAZOLE 40 MG TABLET PO SCH (07:40)
[2017-08-04] MEDS: CLINDAMYCIN 900 MG in DEXTROSE 5% IN WATER 50 ML IVPB SCH ×6 (07:41→23:08)
[2017-08-04] MEDS: POLYETHYLENE GLYCOL 3350 17 GM POWD.PACK PO SCH (08:35)
[2017-08-04] MEDS: FAMOTIDINE 20 MG TAB PO SCH ×2 (08:36→21:29)
[2017-08-04] MEDS: ASPIRIN 81 MG PO SCH (08:36)
[2017-08-04] MEDS: METOPROLOL TARTRATE 25 MG TAB PO SCH ×2 (08:36→21:29)
[2017-08-04] MEDS: ISOSORBIDE MONONITRATE ER 60 MG TAB.ER.24H PO SCH (08:36)
[2017-08-04] MEDS: LOSARTAN 50 MG TAB PO SCH (08:37)
[2017-08-04] MEDS: POTASSIUM CHLORIDE ER 20 MEQ TAB.ER PO SCH (08:37)
[2017-08-04] MEDS: ATORVASTATIN 40 MG TAB PO SCH (08:37)
[2017-08-04] MEDS: CLOPIDOGREL 75 MG TAB PO SCH (08:37)
[2017-08-04] MEDS: HEPARIN SODIUM,PORCINE 5,000 UNIT/ML 1 ML VIAL SQ SCH ×2 (08:37→21:29)
[2017-08-04] MEDS: MULTIVITAMINS, THERA 1 EACH TAB PO SCH (08:37)
[2017-08-04] MEDS: NYSTATIN 100,000 UNIT/GM POWD 15 GM TOPICAL SCH ×2 (08:41→21:30)
[2017-08-04] MEDS: MICONAZOLE NITRATE 2% CREAM 14 GM TUBE TOPICAL SCH ×2 (08:41→21:30)
[2017-08-04 09:03] LABS: Basophils # (A) 0.1 k/uL (0-0.2); Basophils % (A) 0 %; Eosinophils # (A) 0.1 k/uL (0-0.7); Eosinophils % (A) 1 %; HCT 37.9 % (39.0-53.0); HGB 12.4 gm/dL (13.0-17.5); Lymphocytes # (A) 1.9 k/uL (1.0-4.8); Lymphocytes % (A) 16 %; MCH 29.5 pg (25.0-35.0); MCHC 32.7 g/dL (31.0-37.0); MCV 90.1 fL (80.0-100.0); Mean Platelet Volume 7.8; Monocytes # (A) 0.6 k/uL (0-1.0); Monocytes % (A) 5 %; Neutrophils # (A) 9.4 k/uL (1.3-7.7); Neutrophils % (A) 77 %; Platelet Count 220 k/uL (150-450); RBC 4.21 m/uL (4.30-5.90); RDW 13.5 % (11.5-15.5); WBC 12.2 k/uL (3.8-10.6)
[2017-08-04 09:07] LABS: Anion Gap 9 mmol/L; Blood Urea Nitrogen 12 mg/dL (9-20); Calcium 8.8 mg/dL (8.4-10.2); Carbon Dioxide 37 mmol/L (22-30); Chloride 91 mmol/L (98-107); Creatine Kinase 155 U/L (55-170); Glucose 101 mg/dL (74-99); Sodium 137 mmol/L (137-145)
[2017-08-04] MEDS: AMPICILLIN-SULBACTAM 3 GM in SODIUM CHLORIDE 0.9% 100 ML IVPB SCH ×2 (14:30→19:52)
--- NOTE | 2017-08-04 17:29 | PN ---
PROGRESS NOTE DATE OF SERVICE: 08/04/2017. REASON FOR FOLLOWUP: Left lower extremity cellulitis. INTERVAL HISTORY: The patient is afebrile. He is breathing comfortably. Denies having any chest pain or shortness of breath. No cough. No abdominal pain. Pain to the left leg is currently decreased. No diarrhea. EXAMINATION: Blood pressure 139/56 with pulse of 87, temperature 97.1. He is 93% on 2 L nasal cannula. General description is a middle-aged male lying in bed in no distress. Respiratory system: Unlabored breathing, clear to auscultation anteriorly. HEART: S1, S2. Regular rate and rhythm. Abdomen soft, no tenderness. Left leg with some minimal erythema, slightly warm to touch. No skin breakdown. No drainage. LABS: Hemoglobin 12.4, white count 12.2 with a BUN of 12, creatinine 0.83. Blood culture has been negative. CT of the leg was negative for any abscess formation. DIAGNOSTIC IMPRESSION AND PLAN: Patient with left lower extremity cellulitis, diffuse swelling and redness. Evidence of athlete's foot likely representing a streptococcal disease. He did have resolution of his fever and white count improved. However, still having extensive cellulitis. The CT was negative for any abscess. We will switch him over to Unasyn 3 g q.6h. Continue clindamycin and cefazolin. He will benefit from an Manpreet wrap to keep some of the swelling down. Plan of care discussed in detail with the admitting physician. Continue supportive care. MMODL / IJN: [id number] /
[2017-08-05] MEDS: AMPICILLIN-SULBACTAM 3 GM in SODIUM CHLORIDE 0.9% 100 ML IVPB SCH ×3 (00:12→12:19)
--- NOTE | 2017-08-05 03:53 | PN ---
PROGRESS NOTE DATE OF SERVICE: August 04, 2017. PRESENTING COMPLAINT: Left lower extremity cellulitis. INTERVAL HISTORY: This patient presented with severe cellulitis left lower extremity, lying in bed. Breathing is stable. Has been tolerating his diet. REVIEW OF SYSTEMS: Done for constitutional, cardiovascular, GI, pulmonary, dermatologic; relevant findings as above. CURRENT MEDICATIONS: Reviewed that include IV Unasyn. PHYSICAL EXAMINATION: On examination, afebrile. Pulse 81, respiratory 18, blood pressure 135/67, pulse ox 94% on 3 L. General appearance: Lying in bed comfortable. EYES: Pupils equal. Conjunctivae are normal. HEENT: External appearance of nose and ears normal. Oral cavity normal. Neck: JVD unable to assess. Mass not palpable. Respiratory effort increased. Lungs, distant breath sounds. Cardiovascular: Heart sounds muffled. Some edema. Abdomen distended, soft. Liver and spleen not palpable. Psychiatry: Alert and oriented times three. Mood and affect normal. Left lower extremity diffuse redness and some breakdown of skin in the upper part. INVESTIGATIONS: White count 12.7, hemoglobin 11.6, potassium 3.9, BUN 16, creatinine 0.90. The patient's proBNP was 294. ASSESSMENT: 1. Acute severe left lower extremity cellulitis, slow to respond. 2. Chronic obstructive pulmonary disease in an ex-smoker. 3. Chronic congestive heart failure from diastolic dysfunction from underlying coronary artery disease with no acute exacerbation. 4. Obesity hypoventilation syndrome. 5. Coronary artery disease prior history of stent. 6. Hyperlipidemia. 7. Essential hypertension. 8. AICD. 9. Chronic low back pain from L2-L5 chronic fractures. 10.Morbid obesity BMI 54. 11.Chronic hypoxic respiratory failure on 2 L oxygen at home from underlying chronic obstructive pulmonary disease. Given that the patient's BNP is actually low, I do not think patient will benefit. The patient probably has got evidence of venous insufficiency. I did speak to Dr. Smith from Infectious Disease. I will continue with current IV antibiotic. Will use Silvadene cream and see how that fares. The patient did have a CT scan left lower extremity that just showed some edema. Hopefully with the compression from the Kerlix and Manpreet wrap and antibiotics, the patient will benefit from the same. Continue. MMODL / IJN: [id number] /
[2017-08-05] MEDS: FUROSEMIDE 40 MG TAB PO SCH ×2 (06:13→16:32)
[2017-08-05] MEDS: HYDROcodone/APAP 10-325MG 1 EACH TAB PO PRN ×3 (06:41→18:36)
[2017-08-05] MEDS: FORMOTEROL FUMARATE 20 MCG/2 ML NEBU INHALATION SCH ×2 (07:40→20:18)
[2017-08-05] MEDS: IPRATROPIUM-ALBUTEROL 3 ML NEB INHALATION SCH ×4 (07:40→20:18)
[2017-08-05] MEDS: BUDESONIDE 1 MG/2 ML NEBU INHALATION SCH ×2 (07:40→20:18)
[2017-08-05 07:55] LABS: Basophils # (A) 0.1 k/uL (0-0.2); Basophils % (A) 0 %; Eosinophils # (A) 0.1 k/uL (0-0.7); Eosinophils % (A) 1 %; HCT 35.9 % (39.0-53.0); HGB 11.8 gm/dL (13.0-17.5); Lymphocytes # (A) 1.2 k/uL (1.0-4.8); Lymphocytes % (A) 10 %; MCH 29.6 pg (25.0-35.0); MCHC 32.8 g/dL (31.0-37.0); MCV 90.3 fL (80.0-100.0); Mean Platelet Volume 7.7; Monocytes # (A) 0.7 k/uL (0-1.0); Monocytes % (A) 5 %; Neutrophils # (A) 10.4 k/uL (1.3-7.7); Neutrophils % (A) 83 %; Platelet Count 269 k/uL (150-450); RBC 3.98 m/uL (4.30-5.90); RDW 13.6 % (11.5-15.5); WBC 12.7 k/uL (3.8-10.6)
[2017-08-05 08:32] LABS: Anion Gap 9 mmol/L; Blood Urea Nitrogen 14 mg/dL (9-20); Calcium 8.5 mg/dL (8.4-10.2); Carbon Dioxide 37 mmol/L (22-30); Chloride 90 mmol/L (98-107); Creatine Kinase 188 U/L (55-170); Glucose 94 mg/dL (74-99); Potassium 4.1 mmol/L (3.5-5.1); Sodium 136 mmol/L (137-145)
[2017-08-05] MEDS: ATORVASTATIN 40 MG TAB PO SCH (08:44)
[2017-08-05] MEDS: CLOPIDOGREL 75 MG TAB PO SCH (08:44)
[2017-08-05] MEDS: FAMOTIDINE 20 MG TAB PO SCH ×2 (08:44→21:49)
[2017-08-05] MEDS: ISOSORBIDE MONONITRATE ER 60 MG TAB.ER.24H PO SCH (08:44)
[2017-08-05] MEDS: METOPROLOL TARTRATE 25 MG TAB PO SCH ×2 (08:44→21:49)
[2017-08-05] MEDS: ASPIRIN 81 MG PO SCH (08:44)
[2017-08-05] MEDS: cloNIDine HCL 0.2 MG TAB PO SCH ×2 (08:44→16:31)
[2017-08-05] MEDS: POLYETHYLENE GLYCOL 3350 17 GM POWD.PACK PO SCH (08:45)
[2017-08-05] MEDS: HEPARIN SODIUM,PORCINE 5,000 UNIT/ML 1 ML VIAL SQ SCH ×2 (08:45→21:49)
[2017-08-05] MEDS: MICONAZOLE NITRATE 2% CREAM 14 GM TUBE TOPICAL SCH ×2 (08:45→21:50)
[2017-08-05] MEDS: LOSARTAN 50 MG TAB PO SCH (08:45)
[2017-08-05] MEDS: NYSTATIN 100,000 UNIT/GM POWD 15 GM TOPICAL SCH ×2 (08:45→21:49)
[2017-08-05] MEDS: POTASSIUM CHLORIDE ER 20 MEQ TAB.ER PO SCH (08:45)
[2017-08-05] MEDS: CLINDAMYCIN 900 MG in DEXTROSE 5% IN WATER 50 ML IVPB SCH ×2 (12:19)
[2017-08-05] MEDS: MULTIVITAMINS, THERA 1 EACH TAB PO SCH (12:20)
[2017-08-05] MEDS ORDERED: VANCOMYCIN IV PER PHARMACY 1 EACH MISC MISCELLANE PRN (13:31)
[2017-08-05] MEDS ORDERED: VANCOMYCIN 2,500 MG in SODIUM CHLORIDE 0.9% 500 ML IVPB SCH (14:00)
--- NOTE | 2017-08-05 16:30 | PN ---
PROGRESS NOTE DATE OF SERVICE: 08/05/2017. REASON FOR FOLLOWUP: Left leg cellulitis. INTERVAL HISTORY: The patient did spike a fever last night of 102.4. Repeat has been up to 101. Unfortunately I was not notified with this episode of fever. This morning the patient has been afebrile. His redness has slightly extended to the thigh area. However, specifically the patient said the pain to the left leg is about the same as yesterday and he did mention it has much improved since he has been admitted to the hospital. The patient denies having any URI symptoms. No chest pain. No shortness of breath. No cough. No abdominal pain. Did not have any diarrhea and no urinary symptoms. REVIEW OF SYSTEMS: Positive for this episode of fever along with left leg swelling and redness and pain as mentioned above. All other systems being negative. His past medical and surgical history reviewed. No change in medication. Medications were reviewed. EXAMINATION: Blood pressure 105/93, pulse of 93, temperature 98.4. He is 91% on 2 L nasal cannula. General description is a middle-aged male lying in bed in no distress. HEENT EXAMINATION: Slight pallor, no scleral icterus. Oral mucosa membrane is dry. LUNGS: Unlabored breathing. Clear to auscultation. No wheeze or crackles. HEART: S1, S2. Regular rate and rhythm. ABDOMEN: Soft, no tenderness. No guarding. No rigidity. Left leg, he still has some swelling and redness which seemed to have slightly extended to the thigh area. Minimal tenderness to touch. NEUROLOGICAL: Patient is awake, alert, oriented x3. Mood and affect normal. LABS: Hemoglobin 11.8, white count 12.7, yesterday was 12.2 with a BUN of 14, creatinine 0.85. CK was 188, was 155 yesterday. Blood culture on admission has been negative. DIAGNOSTIC IMPRESSION AND PLAN: Patient admitted to the hospital with sepsis with left lower extremity cellulitis with diffuse swelling and redness, concern was for a likely streptococcal disease for which the patient has been treated with cefazolin and clindamycin and we did see resolution of his fever as the patient has no fever on the 5th, 6th, 7th with new fever yesterday. The patient also have elevated white count of 23.7 on admission and came down to 12.8 yesterday slightly up to 12.7 with a new fever and slight worsening of the cellulitis at this point, we will repeat blood cultures. Antibiotic will be broadened to vancomycin and Zosyn. He did have a CT of the left leg of did not show any evidence of a fasciitis or abscess on the . We will monitor his clinical course closely and adjust antibiotic further depending on clinical response as well as culture. Plan of care discussed in detail with the admitting physician. The patient will be seen by Dr. Lott who will cover for me over the weekend. MMODL / IJN: [id number] /
[2017-08-05] MEDS: PIPERACILLIN-TAZOBACTAM 3.375 GM in DEXTROSE/WATER 1 50ML.BAG IVPB SCH (18:32)
--- NOTE | 2017-08-05 19:21 | PN ---
PROGRESS NOTE DATE OF SERVICE: 08/05/17. PRESENTING COMPLAINT: Cellulitis. INTERVAL HISTORY: The patient presents severe left lower extremity cellulitis. Had been afebrile for 3 days and then spiked a fever last night. The patient also started on Silvadene cream with dressing and Manpreet wrap which patient refused earlier this morning. Otherwise, been tolerating his diet. Did sit up in a chair. REVIEW OF SYSTEMS: Done for constitutional, cardiovascular, GI, pulmonary, dermatological; relevant findings as above. CURRENT MEDICATIONS: Reviewed that include IV Zosyn and vancomycin. These antibiotics were changed by Dr. Smith from ID. On examination, T-max 102.7 last night. Pulse 93, respirations 20, blood pressure 105/93, pulse ox 91% on 2 L GENERAL APPEARANCE: Lying in bed, tired appearing. EYES: Pupils equal. Conjunctivae normal. HEENT: External appearance of nose and ears normal. Oral cavity normal. NECK: JVD unable to assess. Mass not palpable. RESPIRATORY: Effort increased. Lungs, distant breath sounds. CARDIOVASCULAR: Heart sounds muffled. Some edema. ABDOMEN: Distended, soft. Liver and spleen not palpable. PSYCHIATRY: Alert and oriented x3. Mood and affect normal. EXTREMITIES: Left lower extremity with diffuse redness with some breakdown of skin. Edema present. INVESTIGATIONS: White count 12.7, hemoglobin 11.8 potassium 4.1. ASSESSMENT: 1. Acute severe left lower extremity cellulitis, worsening with spiking fevers last night. 2. Chronic obstructive pulmonary disease in an ex-smoker. 3. Chronic congestive heart failure from diastolic dysfunction, underlying coronary artery disease, currently stabilized. 4. Obesity hypoventilation syndrome. 5. Coronary artery disease with prior history of stent. 6. Hyperlipidemia. 7. Essential hypertension. 8. AICD. 9. Chronic low back pain from L2-L5 chronic fractures. 10.Morbid obesity, BMI 54. 11.Chronic hypoxic respiratory failure on 2 L oxygen at home from underlying chronic obstructive pulmonary disease. PLAN: Talked with Dr. Smith. Antibiotics were changed. The patient told the importance of using Manpreet wrap and keep the swelling down helps with the process of healing. Lets see how the patient does with the new change of antibiotics. The patient is currently not ready for discharge. MMODL / IJN: [id number] /
[2017-08-06] MEDS: PIPERACILLIN-TAZOBACTAM 3.375 GM in DEXTROSE/WATER 1 50ML.BAG IVPB SCH ×3 (00:09→16:59)
[2017-08-06] MEDS: cloNIDine HCL 0.2 MG TAB PO SCH ×3 (00:12→16:41)
[2017-08-06] MEDS: VANCOMYCIN 2,500 MG in SODIUM CHLORIDE 0.9% 500 ML IVPB SCH ×2 (03:38→13:29)
[2017-08-06] MEDS: HYDROcodone/APAP 10-325MG 1 EACH TAB PO PRN ×3 (05:01→21:23)
[2017-08-06] MEDS: ALPRAZolam 0.25 MG TAB PO PRN (05:43)
[2017-08-06] MEDS: FUROSEMIDE 40 MG TAB PO SCH ×2 (06:18→16:59)
[2017-08-06] MEDS: BUDESONIDE 1 MG/2 ML NEBU INHALATION SCH ×2 (07:40→19:24)
[2017-08-06] MEDS: IPRATROPIUM-ALBUTEROL 3 ML NEB INHALATION SCH ×4 (07:40→19:24)
[2017-08-06] MEDS: FORMOTEROL FUMARATE 20 MCG/2 ML NEBU INHALATION SCH ×2 (07:40→19:24)
[2017-08-06] MEDS: ASPIRIN 81 MG PO SCH (07:53)
[2017-08-06] MEDS: FAMOTIDINE 20 MG TAB PO SCH ×2 (07:54→21:24)
[2017-08-06] MEDS: HEPARIN SODIUM,PORCINE 5,000 UNIT/ML 1 ML VIAL SQ SCH ×2 (07:54→21:24)
[2017-08-06] MEDS: ATORVASTATIN 40 MG TAB PO SCH (07:54)
[2017-08-06] MEDS: ISOSORBIDE MONONITRATE ER 60 MG TAB.ER.24H PO SCH (07:54)
[2017-08-06] MEDS: CLOPIDOGREL 75 MG TAB PO SCH (07:54)
[2017-08-06] MEDS: METOPROLOL TARTRATE 25 MG TAB PO SCH ×2 (07:55→21:24)
[2017-08-06] MEDS: LOSARTAN 50 MG TAB PO SCH (07:55)
[2017-08-06] MEDS: MICONAZOLE NITRATE 2% CREAM 14 GM TUBE TOPICAL SCH ×2 (07:55→21:24)
[2017-08-06] MEDS: POLYETHYLENE GLYCOL 3350 17 GM POWD.PACK PO SCH (07:56)
[2017-08-06] MEDS: POTASSIUM CHLORIDE ER 20 MEQ TAB.ER PO SCH (07:56)
[2017-08-06] MEDS: NYSTATIN 100,000 UNIT/GM POWD 15 GM TOPICAL SCH ×2 (07:56→21:25)
[2017-08-06] MEDS: MULTIVITAMINS, THERA 1 EACH TAB PO SCH (13:29)
[2017-08-06 15:06] VITALS: BMI 52.9
--- NOTE | 2017-08-06 15:46 | PN ---
PROGRESS NOTE DATE OF SERVICE: 08/06/2017 PRESENTING COMPLAINT: Cellulitis. INTERVAL HISTORY: This patient presented with acute severe left lower extremity cellulitis. Antibiotic was changed yesterday by Dr. Smith. Feeling better. He has an Manpreet wrap in place. Tolerating a diet. Had a bowel movement. REVIEW OF SYSTEMS: Done for constitutional, cardiovascular, GI, pulmonary; relevant findings as above. CURRENT MEDICATIONS: Reviewed. They include IV Zosyn and vancomycin. PHYSICAL EXAMINATION: Afebrile. Pulse 87, respiration 18, blood pressure 99/48, pulse ox 95% on 2 L. GENERAL APPEARANCE: Lying in bed. More awake. EYES: Pupils equal. Conjunctivae normal. HEENT: External appearance of nose and ears normal. Oral cavity normal. NECK: JVD unable to assess. Mass not palpable. RESPIRATORY: Effort normal. LUNGS: Distant breath sounds. CARDIOVASCULAR: Heart sounds muffled. Some edema present. ABDOMEN: Distended, soft. Liver and spleen not palpable. PSYCHIATRY: Alert and oriented x3. Mood and affect normal. EXTREMITIES: Left lower extremity in a dressing. INVESTIGATIONS: White count 12.7, potassium 4.1. BUN and creatinine are normal. Cultures have been negative. ASSESSMENT: 1. Acute severe lower extremity cellulitis, slow to respond. 2. Chronic obstructive pulmonary disease in an ex-smoker. 3. Chronic congestive heart failure from diastolic dysfunction from underlying coronary artery disease. 4. Obesity hypoventilation syndrome. 5. Coronary artery disease with prior history of stent. 6. Hyperlipidemia. 7. Essential hypertension. 8. Automated implantable cardioverter defibrillator. 9. Chronic low back pain from L2 to L5 with chronic fractures. 10.Morbid obesity; body mass index of 54. 11.Chronic hypoxic respiratory failure, on 2 L oxygen at home, from underlying chronic obstructive pulmonary disease. PLAN: Continue current medication and treatment plan. Care was discussed with the patient. Encouraged again to be out of bed. MMODL / IJN: [id number] /
--- NOTE | 2017-08-06 21:36 | P.PN ---
Subjective Progress Note Date: 08/06/17 Principal diagnosis: Pain left leg 61-year-old male who suffers superobesity presented hospital several days ago with evidence of sepsis. He was found evidence of a significant infection to his left lower extremity he was not responding well to it microbial therapy with concerns to a deeper infection. Antimicrobial therapy was altered. Imaging studies were requested. Patient is being seen for coverage. The patient relates is feeling better today. Has chronic illnesses related to his superobesity and lack of care for himself over the last several years. He does relate leg is feeling better today. Overall he still feels somewhat poorly. He has however denying fevers chills or rigors. Denies significant new shortness of breath denies new cough or sputum production. Symptoms. No difficulties with his skin except on the left leg. He relates that he does have urinary incontinence. Worsened with his diuretic therapy. Objective - Vital Signs Vital signs: Vital Signs Temp 98.8 F 08/06/17 15:00 Pulse 79 08/06/17 17:30 Resp 18 08/06/17 17:30 BP 117/59 08/06/17 17:30 Pulse Ox 93 L 08/06/17 19:24 Intake & Output 08/06/17 08/06/17 08/07/17 06:59 18:59 07:59 Intake Total 550 Output Total 400 Balance 150 Weight 176.901 kg Intake: Intake, IV Titration 550 Amount Piperacillin-Tazobactam 3 50 .375 gm In Dextrose/Water 1 50ml.bag @ 12.5 mls/hr IVPB Q8HR KARINA Rx#: [id number] Vancomycin 2,500 mg In 500 Sodium Chloride 0.9% 500 ml @ 167 mls/hr IVPB BID@ 0400,1300 KARINA Rx#: [id number] Output: Urine 400 Other: Voiding Method Urinal # Voids 3 2 - Exam 61-year-old male with superobesity BMIs 52.9 laying supine is somewhat comfortable HEENT: Anicteric conjunctiva are pink and moist nasal mucosa grossly intact without significant lesions, there is no thrush. Neck: The neck is supple without significant lymphadenopathy or thyromegaly. Lungs: Symmetrical air entry is noted, basilar crackles are heard few wheezes are notedand bronchial sounds. Heart: Irregular with an audible S1 and S2 soft S4 no distinct murmur click or rub PMI was nonpalpable Abdomen: Obese, Positive bowel sounds soft and nontender without palpable masses or organomegaly. There was no guarding or rebound. Extremities: The upper extremities have excellent pulses they are symmetric, no significant petechiae or telangiectasia. No splinter hemorrhages were noted. The lower extremities have evidence of bilateral lower extremity edema left is considerably worse in the right. Left lower extremity has evidence of the distinct erythema that is present from the foot to the thigh. Pedal toscano are in place and the dense erythema that was noted yesterday apparently has regressed. The inner aspect of the thigh is now much less tender than yesterday. There is no fluctuance or blistering to the skin. There is no inguinal lymphadenopathy being noted. The left foot and distal leg is still swollen but no blisters are seen and there is no necrosis or blistering to the tissue. Neuro: Awake alert oriented to person place and time. There are no acute new gross focal sensory motor deficits. - Labs CBC & Chem 7: 08/05/17 07:15 08/05/17 07:15 Labs: Microbiology - Last 24 Hours (Table) 08/05/17 14:09 Blood Culture - Preliminary Blood No Growth after 24 hours 08/05/17 14:19 Blood Culture - Preliminary Blood No Growth after 24 hours 07/31/17 10:00 Blood Culture - Final Blood No Growth after 144 hours Laboratory Results WBC 12.7 k/uL (3.8-10.6) H 08/05/17 07:15 RBC 3.98 m/uL (4.30-5.90) L 08/05/17 07:15 Hgb 11.8 gm/dL (13.0-17.5) L 08/05/17 07:15 Hct 35.9 % (39.0-53.0) L 08/05/17 07:15 MCV 90.3 fL (80.0-100.0) 08/05/17 07:15 MCH 29.6 pg (25.0-35.0) 08/05/17 07:15 MCHC 32.8 g/dL (31.0-37.0) 08/05/17 07:15 RDW 13.6 % (11.5-15.5) 08/05/17 07:15 Plt Count 269 k/uL (150-450) 08/05/17 07:15 Neutrophils % 83 % 08/05/17 07:15 Lymphocytes % 10 % 08/05/17 07:15 Monocytes % 5 % 08/05/17 07:15 Eosinophils % 1 % 08/05/17 07:15 Basophils % 0 % 08/05/17 07:15 Neutrophils # 10.4 k/uL (1.3-7.7) H 08/05/17 07:15 Lymphocytes # 1.2 k/uL (1.0-4.8) 08/05/17 07:15 Monocytes # 0.7 k/uL (0-1.0) 08/05/17 07:15 Eosinophils # 0.1 k/uL (0-0.7) 08/05/17 07:15 Basophils # 0.1 k/uL (0-0.2) 08/05/17 07:15 PT 10.9 sec (9.0-12.0) 07/31/17 10:00 INR 1.1 (<1.2) 07/31/17 10:00 APTT 27.1 sec (22.0-30.0) 07/31/17 10:00 Sodium 136 mmol/L (137-145) L 08/05/17 07:15 Potassium 4.1 mmol/L (3.5-5.1) 08/05/17 07:15 Chloride 90 mmol/L (98-107) L 08/05/17 07:15 Carbon Dioxide 37 mmol/L (22-30) H 08/05/17 07:15 Anion Gap 9 mmol/L 08/05/17 07:15 BUN 14 mg/dL (9-20) 08/05/17 07:15 Creatinine 0.85 mg/dL (0.66-1.25) 08/05/17 07:15 Est GFR (MDRD) Af Amer >60 (>60 ml/min/1.73 sqM) 08/02/17 07:04 Est GFR (MDRD) Non-Af >60 (>60 ml/min/1.73 sqM) 08/02/17 07:04 Est GFR (CKD-EPI)AfAm >90 (>60 ml/min/1.73 sqM) 08/05/17 07:15 Est GFR (CKD-EPI)NonAf >90 (>60 ml/min/1.73 sqM) 08/05/17 07:15 Glucose 94 mg/dL (74-99) 08/05/17 07:15 Plasma Lactic Acid Hernán 1.1 mmol/L (0.7-2.0) 07/31/17 10:06 Calcium 8.5 mg/dL (8.4-10.2) 08/05/17 07:15 Magnesium 1.5 mg/dL (1.6-2.3) L 07/31/17 10:00 Total Bilirubin 0.8 mg/dL (0.2-1.3) 07/31/17 10:00 AST 79 U/L (17-59) H 07/31/17 10:00 ALT 41 U/L (21-72) 07/31/17 10:00 Alkaline Phosphatase 43 U/L (38-126) 07/31/17 10:00 Creatine Kinase 188 U/L (55-170) H 08/05/17 07:15 Total Creatine Kinase 2112 U/L (55-170) H 07/31/17 10:00 CK-MB (CK-2) 2.4 ng/mL (0.0-2.4) 07/31/17 10:00 CK-MB (CK-2) Rel Index 07/31/17 10:00 Troponin I 0.014 ng/mL (0.000-0.034) 07/31/17 10:00 NT-Pro-B Natriuret Pep 294 pg/mL 07/31/17 10:00 Total Protein 5.6 g/dL (6.3-8.2) L 07/31/17 10:00 Albumin 2.9 g/dL (3.5-5.0) L 07/31/17 10:00 Lipase 21 U/L (23-300) L 07/31/17 10:00 Microbiology 08/05/17 14:09 Blood Blood Culture - Preliminary No Growth after 24 hours 08/05/17 14:19 Blood Blood Culture - Preliminary No Growth after 24 hours 07/31/17 10:00 Blood Blood Culture - Final No Growth after 144 hours 07/31/17 14:34 Urine,Voided Urine Culture - Final Computed tomography scan of the limb feels evidence of cellulitis but no deeper structure infection no evidence of necrotizing fasciitis is seen Assessment and Plan (1) Left leg cellulitis Narrative/Plan: 61-year-old male who has superobesity presented to Hospital with evidence of sepsis without evidence of the significant sialitis to his left lower extremity. Was also having difficulties with volume overload and is having receiving diuresis with extensive amounts of urinary output that he is incontinent of. The patient does relate that the left lower extremity is feeling slightly better. On the exam today there is no evidence of any blistering tissue no bullae or increasing amounts of erythema. There is marked on the leg in the line of erythema has regressed from this area. Patient relates is also less tender. The rest of the left lower extremity fails to reveal evidence of any significant bulla or necrotic tissue. The swelling and erythema apparently are improved. Patient appears to responding well to the antibody changes were made yesterday. These will continue. Continue with the multilayer wrap to the leg and some Silvadene and elevation at rest. Current Visit: Yes Status: Acute Code(s): L03.116 - CELLULITIS OF LEFT LOWER LIMB SNOMED Code(s): 725242915 (2) Fever Current Visit: Yes Status: Acute Code(s): R50.9 - FEVER, UNSPECIFIED SNOMED Code(s): 293255365 (3) Leukocytosis Current Visit: Yes Status: Acute Code(s): D72.829 - ELEVATED WHITE BLOOD CELL COUNT, UNSPECIFIED SNOMED Code(s): 879273343
[2017-08-07] MEDS: PIPERACILLIN-TAZOBACTAM 3.375 GM in DEXTROSE/WATER 1 50ML.BAG IVPB SCH ×4 (01:15→23:47)
[2017-08-07] MEDS: cloNIDine HCL 0.2 MG TAB PO SCH ×4 (01:16→23:47)
[2017-08-07] MEDS: HYDROcodone/APAP 10-325MG 1 EACH TAB PO PRN ×2 (04:02→20:28)
[2017-08-07] MEDS: VANCOMYCIN 2,500 MG in SODIUM CHLORIDE 0.9% 500 ML IVPB SCH ×2 (05:41→15:42)
[2017-08-07] MEDS: FUROSEMIDE 40 MG TAB PO SCH ×3 (05:42→18:28)
[2017-08-07] MEDS: ATORVASTATIN 40 MG TAB PO SCH (08:25)
[2017-08-07] MEDS: CLOPIDOGREL 75 MG TAB PO SCH (08:25)
[2017-08-07] MEDS: ASPIRIN 81 MG PO SCH (08:25)
[2017-08-07] MEDS: METOPROLOL TARTRATE 25 MG TAB PO SCH ×2 (08:26→20:27)
[2017-08-07] MEDS: IPRATROPIUM-ALBUTEROL 3 ML NEB INHALATION SCH ×4 (08:26→21:11)
[2017-08-07] MEDS: HEPARIN SODIUM,PORCINE 5,000 UNIT/ML 1 ML VIAL SQ SCH ×2 (08:26→20:27)
[2017-08-07] MEDS: LOSARTAN 50 MG TAB PO SCH (08:26)
[2017-08-07] MEDS: FORMOTEROL FUMARATE 20 MCG/2 ML NEBU INHALATION SCH ×2 (08:26→21:11)
[2017-08-07] MEDS: FAMOTIDINE 20 MG TAB PO SCH ×2 (08:26→20:28)
[2017-08-07] MEDS: ISOSORBIDE MONONITRATE ER 60 MG TAB.ER.24H PO SCH (08:26)
[2017-08-07] MEDS: BUDESONIDE 1 MG/2 ML NEBU INHALATION SCH ×2 (08:26→21:10)
[2017-08-07] MEDS: MICONAZOLE NITRATE 2% CREAM 14 GM TUBE TOPICAL SCH ×2 (08:27→20:27)
[2017-08-07] MEDS: POLYETHYLENE GLYCOL 3350 17 GM POWD.PACK PO SCH (08:27)
[2017-08-07] MEDS: POTASSIUM CHLORIDE ER 20 MEQ TAB.ER PO SCH (08:27)
[2017-08-07] MEDS: NYSTATIN 100,000 UNIT/GM POWD 15 GM TOPICAL SCH ×2 (08:27→20:27)
[2017-08-07 08:58] LABS: Blood Urea Nitrogen 10 mg/dL (9-20); Calcium 8.9 mg/dL (8.4-10.2); Chloride 91 mmol/L (98-107); Glucose 112 mg/dL (74-99); Potassium 4.5 mmol/L (3.5-5.1); Sodium 138 mmol/L (137-145)
[2017-08-07 09:04] LABS: Anion Gap 5 mmol/L
[2017-08-07 09:13] LABS: Carbon Dioxide 42 mmol/L (22-30)
[2017-08-07] MEDS: MULTIVITAMINS, THERA 1 EACH TAB PO SCH (11:56)
--- NOTE | 2017-08-07 18:47 | PN ---
PROGRESS NOTE DATE OF SERVICE: 08/07/2017. PRESENTING COMPLAINT: Left leg cellulitis. INTERVAL HISTORY: Patient presents with left leg cellulitis, which is actually getting better. No further fevers. Tolerating a diet. Pain is much better. REVIEW OF SYSTEMS: Done for constitutional, cardiovascular, GI, pulmonary; relevant findings as above. CURRENT MEDICATIONS: Reviewed that include IV Zosyn and vancomycin. PHYSICAL EXAMINATION: Temperature 97, pulse 67, respirations 22, blood pressure 107/69 pulse 90% 2 L. GENERAL: Lying in bed, comfortable. EYES: Pupils equal. Conjunctivae normal. HEENT: External appearance of nose and ears normal. Oral cavity normal. NECK: JVD unable to assess. Mass not palpable. Respiratory effort. LUNGS: Distant breath sounds. CARDIOVASCULAR: Heart sounds muffled. Some edema present. ABDOMEN: Distended, soft. Liver and spleen not palpable. PSYCHIATRY: Alert and oriented x3. Mood and affect normal. EXTREMITIES: Left lower extremity dressing is present. INVESTIGATIONS: Potassium 4.5, bicarb 42, BUN 10, creatinine 0.88. ASSESSMENT: 1. Acute severe left lower extremity cellulitis, improving. Fevers have come down. Per Dr. Lott' note, the patient's redness is improved. 2. Chronic obstructive pulmonary disease in an ex-smoker. 3. Chronic congestive heart failure from diastolic dysfunction, from underlying coronary artery disease. 4. Obesity hypoventilation syndrome. 5. Coronary artery, prior history of stent. 6. Hyperlipidemia. 7. Essential hypertension. 8. Automatic implantable cardioverter defibrillator. 9. Chronic low back pain from L2-L5 with chronic fractures. 10.Morbid obesity BMI 54. 11.Chronic hypoxic respiratory failure on 2 L oxygen at home from underlying chronic obstructive pulmonary disease. PLAN: Continue medication and treatment plan. Care was discussed. Regarding antibiotics, hopefully, Dr. Smith can switch the patient to oral antibiotics tomorrow and patient can be then discharged. MMODL / IJN: [id number] /
[2017-08-07] MEDS: SILVER sulfADIAZINE Cream 400 GM 1 APPLIC APPLIC TOPICAL SCH (20:29)
[2017-08-08] MEDS: HYDROcodone/APAP 10-325MG 1 EACH TAB PO PRN ×4 (02:19→20:46)
[2017-08-08] MEDS ORDERED: VANCOMYCIN TROUGH DUE 1 EACH MISC MISCELLANE ONE (03:00)
[2017-08-08] MEDS: FUROSEMIDE 40 MG TAB PO SCH ×2 (03:30→17:43)
[2017-08-08 03:31] LABS: Basophils % (A) 0 %; Eosinophils # (A) 0.2 k/uL (0-0.7); Eosinophils % (A) 2 %; HGB 10.7 gm/dL (13.0-17.5); Lymphocytes # (A) 1.4 k/uL (1.0-4.8); Lymphocytes % (A) 12 %; MCH 29.4 pg (25.0-35.0); MCHC 31.5 g/dL (31.0-37.0); MCV 93.3 fL (80.0-100.0); Mean Platelet Volume 7.4; Monocytes # (A) 0.7 k/uL (0-1.0); Monocytes % (A) 6 %; Neutrophils # (A) 9.4 k/uL (1.3-7.7); Neutrophils % (A) 79 %; Platelet Count 332 k/uL (150-450); RBC 3.65 m/uL (4.30-5.90); RDW 13.6 % (11.5-15.5); WBC 11.8 k/uL (3.8-10.6)
[2017-08-08] MEDS: VANCOMYCIN 2,500 MG in SODIUM CHLORIDE 0.9% 500 ML IVPB SCH ×2 (03:52→13:55)
[2017-08-08] MEDS: BUDESONIDE 1 MG/2 ML NEBU INHALATION SCH ×2 (07:58→20:27)
[2017-08-08] MEDS: FORMOTEROL FUMARATE 20 MCG/2 ML NEBU INHALATION SCH ×2 (07:58→20:27)
[2017-08-08] MEDS: IPRATROPIUM-ALBUTEROL 3 ML NEB INHALATION SCH ×4 (08:13→20:27)
[2017-08-08] MEDS: PIPERACILLIN-TAZOBACTAM 3.375 GM in DEXTROSE/WATER 1 50ML.BAG IVPB SCH ×2 (08:27→16:14)
[2017-08-08] MEDS: POLYETHYLENE GLYCOL 3350 17 GM POWD.PACK PO SCH (08:29)
[2017-08-08] MEDS: POTASSIUM CHLORIDE ER 20 MEQ TAB.ER PO SCH (08:29)
[2017-08-08] MEDS: ATORVASTATIN 40 MG TAB PO SCH (08:29)
[2017-08-08] MEDS: METOPROLOL TARTRATE 25 MG TAB PO SCH ×2 (08:30→20:46)
[2017-08-08] MEDS: MULTIVITAMINS, THERA 1 EACH TAB PO SCH (08:30)
[2017-08-08] MEDS: FAMOTIDINE 20 MG TAB PO SCH ×2 (08:30→20:46)
[2017-08-08] MEDS: ISOSORBIDE MONONITRATE ER 60 MG TAB.ER.24H PO SCH (08:30)
[2017-08-08] MEDS: LOSARTAN 50 MG TAB PO SCH (08:30)
[2017-08-08] MEDS: cloNIDine HCL 0.2 MG TAB PO SCH ×2 (08:30→16:15)
[2017-08-08] MEDS: ASPIRIN 81 MG PO SCH (08:31)
[2017-08-08] MEDS: CLOPIDOGREL 75 MG TAB PO SCH (08:31)
[2017-08-08] MEDS: HEPARIN SODIUM,PORCINE 5,000 UNIT/ML 1 ML VIAL SQ SCH ×2 (08:31→20:51)
[2017-08-08] MEDS: NYSTATIN 100,000 UNIT/GM POWD 15 GM TOPICAL SCH ×2 (08:33→20:46)
[2017-08-08] MEDS: MICONAZOLE NITRATE 2% CREAM 14 GM TUBE TOPICAL SCH ×2 (08:33→20:46)
[2017-08-08] MEDS: SILVER sulfADIAZINE Cream 400 GM 1 APPLIC APPLIC TOPICAL SCH ×2 (08:33→20:46)
[2017-08-08] MEDS: ETODOLAC 400 MG TAB PO PRN (13:53)
--- NOTE | 2017-08-08 16:21 | PN ---
PROGRESS NOTE DATE OF SERVICE: August 08, 2017 PRESENTING COMPLAINT: Left leg cellulitis. INTERVAL HISTORY: The patient presented with left leg cellulitis. Continues to get better. Breathing is stable. Tolerating a diet, awake comfortable. REVIEW OF SYSTEMS: Done for constitutional, cardiovascular, GI, pulmonary, dermatological, relevant findings as above. The redness in the left leg is greatly improved. CURRENT MEDICATIONS: Reviewed that include vancomycin, Zosyn. PHYSICAL EXAMINATION: Afebrile, pulse 85, respirations 18, blood pressure 146/68, pulse ox 92% on 2 L. General appearance: Lying in bed, comfortable. Eyes: Pupils equal. Conjunctivae normal. HEENT external appearance of nose and ears normal. Oral cavity normal. Neck JVD not raised. Mass not palpable. Respiratory effort normal. LUNGS: Diminished breath sounds. Cardiovascular: Heart sounds muffled. Edema present. Abdomen distended, soft. Liver and spleen not palpable. Psychiatry: Alert and oriented times three. Mood and affect normal. Extremities: Left lower extremity redness is greatly improved. Edema has gone down. Superficial bulla is present with soft roof. INVESTIGATIONS: White count 11.8. ASSESSMENT: 1. Acute severe left lower extremity cellulitis greatly improved. 2. Chronic obstructive pulmonary disease in an ex-smoker. 3. Chronic congestive heart failure from diastolic dysfunction from coronary artery disease. 4. Obesity hypoventilation syndrome. 5. Coronary artery disease, prior history of stent. 6. Hyperlipidemia. 7. Essential hypertension. 8. AICD. 9. Chronic low back pain from L2-L5 with chronic fractures. 10.Morbid obesity BMI 54. 11.Chronic hypoxic respiratory failure on 2 L of oxygen at home from underlying chronic obstructive pulmonary disease. PLAN: Care was discussed in the presence of Dr. Smith with the patient. Plan at this point is switch the patient over to Keflex and doxycycline. Will watch for another 24 hours and if he continues to do well, should be able to be discharged tomorrow. MMODL / IJN: [id number] /
[2017-08-08] MEDS: CEPHALEXIN 500 MG CAP PO SCH ×2 (17:43→22:08)
--- NOTE | 2017-08-08 22:39 | PN ---
PROGRESS NOTE DATE OF SERVICE: 08/08/2017 REASON FOR FOLLOWUP: Left leg cellulitis and athlete foot. INTERVAL HISTORY: The patient is afebrile. He is breathing comfortably. Denies having any chest pain or cough. No abdominal pain. No diarrhea. Left leg pain and swelling and redness have improved. PHYSICAL EXAMINATION: Blood pressure is 109/54 with a pulse of 91, temperature of 98.4. He is 90% on 2 L nasal cannula. General description is a middle-aged male lying in bed in no distress. RESPIRATORY SYSTEM: Unlabored breathing. Clear to auscultation anteriorly. HEART: S1, S2. Regular rate and rhythm. ABDOMEN: Soft. No tenderness. Left leg swelling and redness have decreased. No drainage. LABS: Hemoglobin is 10.5, white count 11.8 with a BUN of 10, creatinine 0.82. Blood culture repeat has been negative. DIAGNOSTIC IMPRESSION AND PLAN: Patient with acute sepsis. Source is left lower extremity cellulitis. Overall clinical improvement. Did have a fever which seems to have resolved. In view of the features mostly streptococcal, antibiotic will be adjusted to the Keflex and doxycycline. If the patient continues to improve, plan to finish therapy with these antibiotics for another 10 days with close outpatient followup. Plan of care discussed with the patient as well as with the admitting physician. MMODL / IJN: [id number] /
[2017-08-09] MEDS: cloNIDine HCL 0.2 MG TAB PO SCH ×2 (00:24→08:31)
[2017-08-09] MEDS: HYDROcodone/APAP 10-325MG 1 EACH TAB PO PRN ×3 (02:42→14:31)
[2017-08-09] MEDS: ALPRAZolam 0.25 MG TAB PO PRN (04:22)
[2017-08-09] MEDS: FUROSEMIDE 40 MG TAB PO SCH (05:06)
[2017-08-09 08:04] VITALS: BP 136/63; PULSE 98; RESP 18; TEMP 98.2
[2017-08-09] MEDS: FORMOTEROL FUMARATE 20 MCG/2 ML NEBU INHALATION SCH (08:19)
[2017-08-09] MEDS: IPRATROPIUM-ALBUTEROL 3 ML NEB INHALATION SCH ×2 (08:19→11:53)
[2017-08-09] MEDS: BUDESONIDE 1 MG/2 ML NEBU INHALATION SCH (08:19)
[2017-08-09] MEDS: ISOSORBIDE MONONITRATE ER 60 MG TAB.ER.24H PO SCH (08:31)
[2017-08-09] MEDS: LOSARTAN 50 MG TAB PO SCH (08:31)
[2017-08-09] MEDS: ASPIRIN 81 MG PO SCH (08:31)
[2017-08-09] MEDS: METOPROLOL TARTRATE 25 MG TAB PO SCH (08:31)
[2017-08-09] MEDS: POTASSIUM CHLORIDE ER 20 MEQ TAB.ER PO SCH (08:31)
[2017-08-09] MEDS: MULTIVITAMINS, THERA 1 EACH TAB PO SCH (08:31)
[2017-08-09] MEDS: FAMOTIDINE 20 MG TAB PO SCH (08:31)
[2017-08-09] MEDS: CEPHALEXIN 500 MG CAP PO SCH ×2 (08:31→13:03)
[2017-08-09] MEDS: ATORVASTATIN 40 MG TAB PO SCH (08:32)
[2017-08-09] MEDS: CLOPIDOGREL 75 MG TAB PO SCH (08:33)
[2017-08-09] MEDS: POLYETHYLENE GLYCOL 3350 17 GM POWD.PACK PO SCH (08:33)
[2017-08-09] MEDS: MICONAZOLE NITRATE 2% CREAM 14 GM TUBE TOPICAL SCH (08:37)
[2017-08-09] MEDS: SILVER sulfADIAZINE Cream 400 GM 1 APPLIC APPLIC TOPICAL SCH (08:37)
[2017-08-09] MEDS: NYSTATIN 100,000 UNIT/GM POWD 15 GM TOPICAL SCH (08:37)
[2017-08-09] MEDS: HEPARIN SODIUM,PORCINE 5,000 UNIT/ML 1 ML VIAL SQ SCH (08:38)
[2017-08-09 08:53] LABS: Anion Gap 7 mmol/L; Blood Urea Nitrogen 11 mg/dL (9-20); Calcium 9.1 mg/dL (8.4-10.2); Carbon Dioxide 38 mmol/L (22-30); Chloride 92 mmol/L (98-107); Glucose 118 mg/dL (74-99); Potassium 4.9 mmol/L (3.5-5.1); Sodium 137 mmol/L (137-145)
[2017-08-09] MEDS ORDERED: DOXYCYCLINE 50 MG CAP PO SCH (09:00)
[2017-08-09] MEDS: ETODOLAC 400 MG TAB PO PRN (13:19)
--- NOTE | 2017-08-09 13:37 | DS ---
DISCHARGE SUMMARY DATE OF ADMISSION: 07/31/2017. DATE OF DISCHARGE: 08/09/2017. FINAL DIAGNOSES: 1. Acute severe left lower extremity cellulitis, present on admission. 2. Chronic obstructive pulmonary disease in an ex-smoker. 3. Chronic congestive heart failure from diastolic dysfunction from underlying coronary artery disease. 4. Obesity hypoventilation syndrome. 5. Coronary artery disease, prior history of stent. 6. Hyperlipidemia. 7. Essential hypertension. 8. Automated implantable cardioverter-defibrillator. 9. Chronic low back pain from L2 to L5 with chronic fractures. 10.Morbid obesity, body mass index 54. 11.Chronic hypoxic respiratory failure on 2 L of oxygen from underlying chronic obstructive pulmonary disease. CONSULTATION: Dr. Smith from Infectious Disease. HOSPITAL COURSE: This patient presented with severe cellulitis of left lower extremity from knee down to his foot. Also had a lot of swelling in there. A CT scan was done, it did show a lot of edema. The patient was then also put on a Kerlix, Manpreet wraps with Silvadene and along with antibiotics did really well. The patient was eventually switched to oral antibiotic. The patient was told to make sure that he uses Manpreet wrap. ON EXAM: LUNGS: Distant breath sounds. CARDIOVASCULAR: Heart sounds muffled. PSYCH A and O x3. Patient's white count is 11.8, hemoglobin is 10.7. BUN is 11. DISCHARGE MEDICATIONS: 1. Plavix 75 mg a day. 2. Lipitor 40 mg a day. 3. Pepcid 20 mg b.i.d. 4. Breo Ellipta 200/25 one puff daily. 5. Imdur ER 60 mg a day. 6. Lopressor 25 p.o. b.i.d. 7. Mycostatin powder topical b.i.d. 8. Cozaar 50 mg daily. 9. Catapres 0.2 mg p.o. q.8. 10.Lodine 400 mg p.o. q.12. 11.Aspirin 81 mg p.o. daily. 12.Keflex 500 mg p.o. q.i.d. for . 13.Vibramycin 100 mg p.o. b.i.d. for 7 days. 14.Lasix 40 mg p.o. b.i.d. 15.Jean 7.5 one tab q.4 p.r.n. 16.DuoNeb q.i.d. 17.Monistat topical b.i.d. 18.Multivitamin 1 tablet p.o. daily. 19.MiraLAX 17 grams p.o. daily. 20.Potassium 20 mEq p.o. daily. 21.Silvadene 1% topical b.i.d. to the left leg with Kerlix and Manpreet wrap. DISPOSITION: [facility]. Follow up with Dr. Pollack at the [facility]. Follow with Dr. Cuadra after discharge from there. Discussion and discharge planning more than 35 minutes. MMODL / IJN: [id number] /
--- NOTE | 2017-08-09 14:34 | PN ---
PROGRESS NOTE DATE OF SERVICE: 08/09/2017. REASON FOR FOLLOWUP: Left leg cellulitis disease. INTERVAL HISTORY: The patient did have a low-grade fever of 100 last night, however, afebrile this morning. Overall, he is feeling better. Pain and swelling and redness to the left leg has improved. Denies any chest pain, shortness of breath, cough, no abdominal pain and no diarrhea. EXAMINATION: Blood pressure 136/53 with a pulse of 90, temperature 98.2. He is 93% on 2 L nasal cannula. General description is a middle-aged male lying in bed in no distress. Respiratory system: Unlabored breathing. Clear to auscultation anteriorly. Heart S1, S2 regular rate and rhythm. Abdomen soft. No tenderness. Left leg swelling and redness improved and no drainage. LABS: No new labs have been obtained today. DIAGNOSTIC IMPRESSION AND PLAN: Patient with left lower extremity cellulitis with diffuse swelling and redness likely streptococcal disease. The patient continues with Keflex 500 mg q.6 hours for another 10 days along with oral doxycycline along with Manpreet wrap to keep the swelling down and discontinue the Silvadene cream. Follow up in the office in one week. Plan of care discussed in detail with the RN for the patient. MMODL / IJN: [id number] /
--- NOTE | 2017-08-11 08:45 | CDI ---
Last Revision, April 2017 Documentation Clarification Form Date: 08/11/17 From: Janina Jose E Qian Quintana, Valve Pipe Irrigator between 8:30 am & 5 pm Akanksha Admit Date: 07/31/2017 10:36:00 AM Patient Name: Willy Lares Visit Number: [id number] Discharge Date: 08/09/17 ATTENTION: The Clinical Documentation Specialists (CDI) and [facility] Coding Staff appreciate your assistance in clarifying documentation. Please respond to the clarification below the line at the bottom and electronically sign. The CDI & [facility] Coding staff will review the response and follow-up if needed. Please note: Queries are made part of the Legal Health Record. If you have any questions, please contact the author of this message via ITS. Dr. Stevo Winn Conflicting documentation has been found in the medical record. Per H&P, consults and PNs-08/01, 08/02, 08/03, 08/05, 08/06, 08/08 early sepsis is documented. The infectious disease consult documents likely streptococcal disease. He also has acute cellulitis of the left leg and candiasis of left groin. WBC 23.7 & Neutrophils 20.9. Lacitc acid 1.1., Total Creatine Kinase 2112. Temp-100.4, P-90, Resp-20, BP-106/56. IV antibiotics Cefazolin and Clinicamycin. At discharge Keflex & Doxycycline. In your opinion what is the most clinically appropriate diagnosis for this patient? Streptococcal sepsis ruled in Sepsis ruled in Sepsis ruled out Other explanation of clinical findings Unable to determine (no explanation for clinical findings) Please continue to document in your progress notes and discharge summary in order to capture severity of illness and risk of mortality. Include clinical findings that support your diagnosis. acute left lower extremtiy cellulitis causing sepsis , POA ADELAD
== END 2017-08-09 15:32 | DRG 872 ==
LOC: EC 09:44 → 5MS5E 10:36
PROVIDERS: ADMIT Hospitalist; ATTEND Hospitalist
DX: A41.9 Sepsis, unspecified organism (principal); J96.11 Chronic respiratory failure with hypoxia; I27.81 Cor pulmonale (chronic); E87.1 Hypo-osmolality and hyponatremia; E66.2 Morbid (severe) obesity with alveolar hypoventilation; E83.42 Hypomagnesemia; L03.116 Cellulitis of left lower limb; I50.32 Chronic diastolic (congestive) heart failure; M62.82 Rhabdomyolysis; Z68.43 Body mass index [BMI] 50.0-59.9, adult; J44.0 Chronic obstructive pulmonary disease with (acute) lower respiratory infection; J44.1 Chronic obstructive pulmonary disease with (acute) exacerbation; I11.0 Hypertensive heart disease with heart failure; J20.9 Acute bronchitis, unspecified; D63.8 Anemia in other chronic diseases classified elsewhere; I25.10 Atherosclerotic heart disease of native coronary artery without angina pectoris; E78.5 Hyperlipidemia, unspecified; I25.2 Old myocardial infarction; G47.33 Obstructive sleep apnea (adult) (pediatric); B35.3 Tinea pedis; M84.48XS Pathological fracture, other site, sequela; G89.29 Other chronic pain; B37.2 Candidiasis of skin and nail; I89.1 Lymphangitis; I87.2 Venous insufficiency (chronic) (peripheral); L30.4 Erythema intertrigo; M19.91 Primary osteoarthritis, unspecified site; R32 Unspecified urinary incontinence; R26.9 Unspecified abnormalities of gait and mobility; Z79.1 Long term (current) use of non-steroidal anti-inflammatories (NSAID); Z79.02 Long term (current) use of antithrombotics/antiplatelets; Z79.51 Long term (current) use of inhaled steroids; Z79.899 Other long term (current) drug therapy; Z86.73 Personal history of transient ischemic attack (TIA), and cerebral infarction without residual deficits; Z95.810 Presence of automatic (implantable) cardiac defibrillator; Z95.5 Presence of coronary angioplasty implant and graft; Z99.81 Dependence on supplemental oxygen
CPT/HCPCS: 00000; 36415; 71046; 80048; 80053; 80202; 82550; 82553; 83605; 83690; 83735; 83880; 84484; 85025; 85610; 85730; 87040; 87086; 93005; 94640; 94760; 96365; 96375; 99285

== ENCOUNTER 2017-10-14 03:51 | Emergency (ER) | payer MEDICARE ==
[2017-10-14 03:58] VITALS: RESP 18
[2017-10-14] MEDS ORDERED: MORPHINE SULFATE 4 MG/ML SYRINGE IV STA (04:13)
--- NOTE | 2017-10-14 04:17 | ED ---
Abdominal Pain HPI - General Chief Complaint: Abdominal Pain Stated Complaint: abd pain Time Seen by Provider: 10/14/17 03:55 Source: EMS Mode of arrival: EMS Limitations: no limitations - History of Present Illness MD Complaint: flank pain Onset/Timin -: days(s) Location: L flank Radiation: LLQ Migration to: no migration Severity: severe Quality: sharp Consistency: constant Improves With: other Worsens With: movement Associated Symptoms: denies other symptoms - Related Data Home Medications Medication Instructions Recorded Confirmed Atorvastatin Calcium [Lipitor] 40 mg PO DAILY 11/03/16 08/23/17 Famotidine [Pepcid] 20 mg PO BID 04/25/17 08/23/17 Fluticasone/Vilanterol [Breo 1 puff INHALATION RT-DAILY 04/25/17 08/23/17 Ellipta 200-25 Mcg INH] Isosorbide Mononitrate ER [Imdur] 60 mg PO DAILY 04/25/17 08/23/17 Metoprolol Tartrate [Lopressor] 25 mg PO BID 04/25/17 08/23/17 Nystatin 100,000 Unit/gm Powd 1 applic TOPICAL BID 04/25/17 08/23/17 [Mycostatin Powder] Etodolac [Lodine] 400 mg PO Q12H 08/01/17 08/23/17 Ipratropium-Albuterol Nebulize 3 ml INHALATION RT-QID PRN 08/23/17 08/23/17 [Duoneb 0.5 mg-3 mg/3 ml Soln] Multivitamins, Thera [Multivitamin 1 tab PO DAILY@1200 08/23/17 08/23/17 (formulary)] Previous Rx's Medication Instructions Recorded Clopidogrel [Plavix] 75 mg PO DAILY #30 tab 02/05/16 Losartan [Cozaar] 50 mg PO DAILY #30 tab 04/27/17 cloNIDine HCL [Catapres] 0.2 mg PO Q8HR #90 tab 05/17/17 Aspirin 81 mg PO DAILY chew 08/09/17 Furosemide [Lasix] 40 mg PO BID #0 08/09/17 HYDROcodone/APAP 7.5-325MG [Reseda 1 tab PO Q4H PRN #10 tab 08/09/17 7.5-325] Miconazole 2% Cream [Monistat-Derm] 1 applic TOPICAL BID applic 08/09/17 Polyethylene Glycol 3350 [Miralax] 17 gm PO DAILY powd.pack 08/09/17 Potassium Chloride ER [K-Dur 20] 20 meq PO DAILY tab.er.prt 08/09/17 SILVER sulfADIAZINE Cream 1 applic TOPICAL BID applic 08/09/17 [Silvadene 1% Cream] Cephalexin [Keflex] 500 mg PO QID #40 cap 08/25/17 oxyCODONE-APAP 7.5-325MG [Percocet 1 tab PO Q6HR PRN 3 Days #12 tab 10/14/17 7.5-325 mg] Allergies Allergy/AdvReac Type Severity Reaction Status Date / Time No Known Allergies Allergy Verified 10/14/17 03:58 Review of Systems ROS Statement: Those systems with pertinent positive or pertinent negative responses have been documented in the HPI. ROS Other: All systems not noted in ROS Statement are negative. Constitutional: Denies: fever, chills, weakness Respiratory: Denies: cough, dyspnea Cardiovascular: Reports: edema. Denies: chest pain, palpitations, orthopnea, syncope Gastrointestinal: Reports: as per HPI, abdominal pain. Denies: nausea, vomiting , diarrhea, constipation, melena, hematochezia Genitourinary: Denies: dysuria, hematuria, testicular pain Musculoskeletal: Reports: back pain Skin: Denies: rash Neurological: Denies: headache, weakness, numbness Past Medical History Past Medical History: Coronary Artery Disease (CAD), Chest Pain / Angina, COPD, CVA/TIA, Hyperlipidemia, Hypertension, Myocardial Infarction ([place]), Osteoarthritis (OA), Respiratory Disorder, Sleep Apnea/CPAP/BIPAP Additional Past Medical History / Comment(s): COPD, obesity, obesity hypoventilation syndrome, obstructive sleep apnea, suspected CHF and cor pulmonale, coronary artery disease with previous stenting of the LAD, previous history of AICD placement, osteoarthritis, CVA in 2004, chronic back pain secondary to degenerative disc disease and spinal canal stenosis, history of vertebral fracture L2 through L5, chronic lower extremity edema, diverticular disease, hyperlipidemia, hypertension, previous history of myocardial infarction ,, L knee fx in past and torn R rotator cuff. cellulitis. Last Myocardial Infarction Date:: 2011 History of Any Multi-Drug Resistant Organisms: None Reported Past Surgical History: AICD, Heart Catheterization With Stent, Hernia Repair Additional Past Surgical History / Comment(s): PTCA, PTCA with stent (4 total), 04/05/13 AICD [employer], 1989' umbilical hernia repair, colonoscopy, circumcism, R eye surgery for strabismus. Past Anesthesia/Blood Transfusion Reactions: No Reported Reaction Date of Last Stent Placement:: 2012 Type of Cardiac Device: AICD Device Placement Date:: 04/05/13 Past Psychological History: No Psychological Hx Reported Smoking Status: Current some day smoker Past Alcohol Use History: None Reported Past Drug Use History: None Reported - Past Family History Father Family Medical History: Musculoskeletal Disorder, Neurologic Disorder Additional Family Medical History / Comment(s): Father had parkinson's dx and at age 84 yrs. Mother Family Medical History: Myocardial Infarction ([place]) Additional Family Medical History / Comment(s): Mother had 3 vessel CABG. She of a massive [place] at the age of 53 yrs. General Exam Limitations: no limitations General appearance: alert, in no apparent distress Head exam: Present: atraumatic, normocephalic Eye exam: Present: normal appearance. Absent: scleral icterus, conjunctival injection ENT exam: Present: mucous membranes dry Neck exam: Present: normal inspection, full ROM Respiratory exam: Present: normal lung sounds bilaterally. Absent: respiratory distress, wheezes, rales, rhonchi, stridor Cardiovascular Exam: Present: regular rate, normal rhythm, normal heart sounds. Absent: systolic murmur, diastolic murmur, rubs, gallop GI/Abdominal exam: Present: soft. Absent: distended, tenderness, guarding, rebound, rigid, mass, pulsatile mass, hernia Extremities exam: Present: normal inspection, normal capillary refill, pedal edema (Patient has bilateral leg edema, left greater than right, which is still present from recent cellulitis that is resolving.). Absent: calf tenderness Back exam: Present: normal inspection. Absent: CVA tenderness (R), CVA tenderness (L) Neurological exam: Present: alert Skin exam: Present: warm, dry, intact, normal color. Absent: rash Course Vital Signs 10/14/17 10/14/17 10/14/17 03:57 05:04 05:33 Temperature 97.6 F Pulse Rate 72 70 65 Respiratory 18 18 18 Rate Blood Pressure 135/68 118/65 121/65 O2 Sat by Pulse 93 L 95 95 Oximetry Medical Decision Making - Lab Data Result diagrams: 10/14/17 04:12 10/14/17 04:12 Lab Results 10/14/17 10/14/17 10/14/17 Range/Units 04:12 04:12 04:18 WBC 7.5 (3.8-10.6) k/uL RBC 4.63 (4.30-5.90) m/uL Hgb 13.7 (13.0-17.5) gm/dL Hct 42.6 (39.0-53.0) % MCV 92.0 (80.0-100.0) fL MCH 29.6 (25.0-35.0) pg MCHC 32.2 (31.0-37.0) g/dL RDW 14.3 (11.5-15.5) % Plt Count 186 (150-450) k/uL Neutrophils % 58 % Lymphocytes % 28 % Monocytes % 6 % Eosinophils % 6 % Basophils % 0 % Neutrophils # 4.3 (1.3-7.7) k/uL Lymphocytes # 2.1 (1.0-4.8) k/uL Monocytes # 0.4 (0-1.0) k/uL Eosinophils # 0.5 (0-0.7) k/uL Basophils # 0.0 (0-0.2) k/uL Sodium 142 (137-145) mmol/L Potassium 4.8 (3.5-5.1) mmol/L Chloride 99 (98-107) mmol/L Carbon Dioxide 33 H (22-30) mmol/L Anion Gap 10 mmol/L BUN 17 (9-20) mg/dL Creatinine 0.80 (0.66-1.25) mg/dL Est GFR (CKD-EPI)AfAm >90 (>60 ml/min/1.73 sqM) Est GFR (CKD-EPI)NonAf >90 (>60 ml/min/1.73 sqM) Glucose 112 H (74-99) mg/dL Calcium 9.2 (8.4-10.2) mg/dL Total Bilirubin 0.3 (0.2-1.3) mg/dL AST 23 (17-59) U/L ALT 35 (21-72) U/L Alkaline Phosphatase 73 (38-126) U/L Total Protein 6.6 (6.3-8.2) g/dL Albumin 3.5 (3.5-5.0) g/dL Amylase 82 (30-110) U/L Lipase 79 (23-300) U/L Urine Color Yellow Urine Appearance Clear (Clear) Urine pH 5.0 (5.0-8.0) Ur Specific [place] 1.013 (1.001-1.035) Urine Protein Negative (Negative) Urine Glucose (UA) Negative (Negative) Urine Ketones Negative (Negative) Urine Blood Negative (Negative) Urine Nitrite Negative (Negative) Urine Bilirubin Negative (Negative) Urine Urobilinogen <2.0 (<2.0) mg/dL Ur Leukocyte Esterase Negative (Negative) Disposition Clinical Impression: Back pain Disposition: HOME SELF-CARE Condition: Fair Prescriptions: oxyCODONE-APAP 7.5-325MG [Percocet 7.5-325 mg] 1 tab PO Q6HR PRN 3 Days #12 tab PRN Reason: Pain Is patient prescribed a controlled substance at d/c from ED?: Yes If prescribed controlled substance>3 days was MAPS reviewed?: Yes When asked, does pt state using other controlled substances?: No Referrals: Tushar Cuadra DO [Primary Care Provider] - 1-2 days Karina Cline MD [STAFF PHYSICIAN] - 1-2 days Charlotte Brady DO [Doctor of Osteopathic Medicine] - 1-2 days
[2017-10-14 04:24] LABS: Basophils % (A) 0 %; Eosinophils # (A) 0.5 k/uL (0-0.7); Eosinophils % (A) 6 %; HCT 42.6 % (39.0-53.0); HGB 13.7 gm/dL (13.0-17.5); Lymphocytes # (A) 2.1 k/uL (1.0-4.8); Lymphocytes % (A) 28 %; MCH 29.6 pg (25.0-35.0); MCHC 32.2 g/dL (31.0-37.0); Mean Platelet Volume 7.8; Monocytes # (A) 0.4 k/uL (0-1.0); Monocytes % (A) 6 %; Neutrophils # (A) 4.3 k/uL (1.3-7.7); Neutrophils % (A) 58 %; Platelet Count 186 k/uL (150-450); RBC 4.63 m/uL (4.30-5.90); RDW 14.3 % (11.5-15.5); WBC 7.5 k/uL (3.8-10.6)
[2017-10-14 04:25] LABS: Appearance,Urine Clear (Clear); Bilirubin,Urine Negative (Negative); Blood,Urine Negative (Negative); Color,Urine Yellow; Glucose,Urine (UA) Negative (Negative); Ketones,Urine Negative (Negative); Leukocyte Esterase,Urine Negative (Negative); Nitrite,Urine Negative (Negative); Protein,Urine Negative (Negative); Specific Gravity,Urine 1.013 (1.001-1.035); Urobilinogen,Urine <2.0 mg/dL (<2.0)
[2017-10-14 04:35] LABS: ALT 35 U/L (21-72); AST 23 U/L (17-59); Albumin 3.5 g/dL (3.5-5.0); Alkaline Phosphatase 73 U/L (38-126); Amylase 82 U/L (30-110); Anion Gap 10 mmol/L; Blood Urea Nitrogen 17 mg/dL (9-20); Calcium 9.2 mg/dL (8.4-10.2); Carbon Dioxide 33 mmol/L (22-30); Chloride 99 mmol/L (98-107); Glucose 112 mg/dL (74-99); Lipase 79 U/L (23-300); Potassium 4.8 mmol/L (3.5-5.1); Sodium 142 mmol/L (137-145); Total Bilirubin 0.3 mg/dL (0.2-1.3); Total Protein 6.6 g/dL (6.3-8.2)
--- NOTE | 2017-10-14 05:00 | CT ---
EXAMINATION TYPE: CT abdomen pelvis wo con DATE OF EXAM: 10/14/2017 COMPARISON: NONE HISTORY: LLQ PAIN. CT DLP: 3240.60 mGycm Automated exposure control for dose reduction was used. TECHNIQUE: Helical acquisition of images was performed from the lung bases through the pelvis. FINDINGS: Lung bases are clear. There is no pleural effusion. There is no pericardial effusion. There are multiple hepatic cysts. The largest is in the anterior right lobe and measures 3.2 cm. The bile ducts are not dilated. Spleen and pancreas appear normal. Gallbladder appears normal. There is no adrenal mass. There is probably a 1.5 cm cortical cyst in the posterior left kidney. Ther e is no retroperitoneal adenopathy. There are multiple diverticula in the sigmoid colon. I see no sig n of diverticulitis. Bladder distends smoothly. Appendix appears normal. There is no evidence of a anastacia wel obstruction. There are probably small posterior right renal cortical cysts. There are spondylotic changes in the lower lumbar spine with multilevel bony spinal stenosis. There are spondylotic change s in the thoracic and lumbar spine. There is no evidence of hernia. IMPRESSION: SIGMOID DIVERTICULOSIS WITHOUT DIVERTICULITIS. NO EVIDENCE OF HERNIA. NO EVIDENCE OF RENAL STONE OR O BSTRUCTION. RENAL CORTICAL CYSTS. SMALL HEPATIC CYSTS.
[2017-10-14 06:50] VITALS: BP 122/69; PULSE 68; TEMP 97.7
== END 2017-10-14 06:49 | disposition home or self-care (01) ==
LOC: SUPCPDRO 03:51 → EC 03:51
DX: M54.9 Dorsalgia, unspecified (principal); R10.32 Left lower quadrant pain; I25.10 Atherosclerotic heart disease of native coronary artery without angina pectoris; J44.9 Chronic obstructive pulmonary disease, unspecified; E78.5 Hyperlipidemia, unspecified; I10 Essential (primary) hypertension; I25.2 Old myocardial infarction; M19.90 Unspecified osteoarthritis, unspecified site; F17.200 Nicotine dependence, unspecified, uncomplicated; E66.9 Obesity, unspecified; Z68.43 Body mass index [BMI] 50.0-59.9, adult; G47.33 Obstructive sleep apnea (adult) (pediatric); Z99.89 Dependence on other enabling machines and devices; Z95.810 Presence of automatic (implantable) cardiac defibrillator; Z86.73 Personal history of transient ischemic attack (TIA), and cerebral infarction without residual deficits; Z98.61 Coronary angioplasty status; Z79.51 Long term (current) use of inhaled steroids; Z79.1 Long term (current) use of non-steroidal anti-inflammatories (NSAID); Z79.899 Other long term (current) drug therapy
CPT/HCPCS: 36415; 80053; 82150; 83690; 85025; 81003; 74176; 99285; 96374; J2270

== ENCOUNTER 2018-02-09 20:24 | Inpatient (IN) | payer MEDICARE ==
[2018-02-09] MEDS ORDERED: NITROGLYCERIN SL TABS 0.4 MG TAB SUBLINGUAL PRN (20:54)
[2018-02-09] MEDS ORDERED: IPRATROPIUM-ALBUTEROL 3 ML NEB INHALATION STA (20:55)
[2018-02-09] MEDS ORDERED: DEXAMETHASONE SOD PHOSPHATE 10 MG/ML 1 ML VIAL IV STA (20:55)
[2018-02-09] MEDS ORDERED: MORPHINE SULFATE 4 MG/ML SYRINGE IVP STA ×2 (20:56→22:26)
[2018-02-09 21:13] LABS: Partial Thromboplastin Time 24.9 sec (22.0-30.0)
[2018-02-09 21:15] LABS: ALT 40 U/L (21-72); AST 30 U/L (17-59); Albumin 3.5 g/dL (3.5-5.0); Alkaline Phosphatase 54 U/L (38-126); Anion Gap 6 mmol/L; Blood Urea Nitrogen 14 mg/dL (9-20); Calcium 9.2 mg/dL (8.4-10.2); Carbon Dioxide 33 mmol/L (22-30); Chloride 100 mmol/L (98-107); Glucose 94 mg/dL (74-99); Magnesium 1.8 mg/dL (1.6-2.3); Potassium 4.1 mmol/L (3.5-5.1); Sodium 139 mmol/L (137-145); Total Bilirubin 0.5 mg/dL (0.2-1.3); Total Protein 6.6 g/dL (6.3-8.2)
--- NOTE | 2018-02-09 21:24 | ED ---
General Adult HPI - General Chief complaint: Shortness of Breath Stated complaint: SOB Time Seen by Provider: 02/09/18 20:34 Source: patient, RN notes reviewed, old records reviewed Mode of arrival: wheelchair Limitations: no limitations - History of Present Illness Initial comments: 62 male with history of CHF, COPD, and obesity presents for evaluation of dyspnea. Patient states he's had worsening cough and dyspnea over the past 48 hours. He also reports bilateral lower extremity swelling. He has had cough which is productive of white to yellow phlegm. Denies fever or chills. He is having some chest pain worse with cough. Denies fever or chills. Patient is currently smoking. - Related Data Home Medications Medication Instructions Recorded Confirmed Atorvastatin Calcium [Lipitor] 40 mg PO DAILY 11/03/16 08/23/17 Famotidine [Pepcid] 20 mg PO BID 04/25/17 08/23/17 Fluticasone/Vilanterol [Breo 1 puff INHALATION RT-DAILY 04/25/17 08/23/17 Ellipta 200-25 Mcg INH] Isosorbide Mononitrate ER [Imdur] 60 mg PO DAILY 04/25/17 02/09/18 Metoprolol Tartrate [Lopressor] 25 mg PO BID 04/25/17 02/09/18 Nystatin 100,000 Unit/gm Powd 1 applic TOPICAL BID 04/25/17 08/23/17 [Mycostatin Powder] Etodolac [Lodine] 400 mg PO Q12H 08/01/17 08/23/17 Ipratropium-Albuterol Nebulize 3 ml INHALATION RT-QID PRN 08/23/17 08/23/17 [Duoneb 0.5 mg-3 mg/3 ml Soln] Multivitamins, Thera [Multivitamin 1 tab PO DAILY@1200 08/23/17 08/23/17 (formulary)] Aspirin EC [Ecotrin] 325 mg PO DAILY 02/09/18 02/09/18 Previous Rx's Medication Instructions Recorded Clopidogrel [Plavix] 75 mg PO DAILY #30 tab 02/05/16 Losartan [Cozaar] 50 mg PO DAILY #30 tab 04/27/17 cloNIDine HCL [Catapres] 0.2 mg PO Q8HR #90 tab 05/17/17 Furosemide [Lasix] 40 mg PO BID #0 08/09/17 Miconazole 2% Cream [Monistat-Derm] 1 applic TOPICAL BID applic 08/09/17 Polyethylene Glycol 3350 [Miralax] 17 gm PO DAILY powd.pack 08/09/17 Potassium Chloride ER [K-Dur 20] 20 meq PO DAILY tab.er.prt 08/09/17 SILVER sulfADIAZINE Cream 1 applic TOPICAL BID applic 08/09/17 [Silvadene 1% Cream] oxyCODONE-APAP 7.5-325MG [Percocet 1 tab PO Q6HR PRN 3 Days #12 tab 10/14/17 7.5-325 mg] Allergies Allergy/AdvReac Type Severity Reaction Status Date / Time No Known Allergies Allergy Verified 02/09/18 21:05 Review of Systems ROS Statement: Those systems with pertinent positive or pertinent negative responses have been documented in the HPI. ROS Other: All systems not noted in ROS Statement are negative. Past Medical History Past Medical History: Coronary Artery Disease (CAD), Chest Pain / Angina, COPD, CVA/TIA, Hyperlipidemia, Hypertension, Myocardial Infarction ([place]), Osteoarthritis (OA), Respiratory Disorder, Sleep Apnea/CPAP/BIPAP Additional Past Medical History / Comment(s): COPD, obesity, obesity hypoventilation syndrome, obstructive sleep apnea, suspected CHF and cor pulmonale, coronary artery disease with previous stenting of the LAD, previous history of AICD placement, osteoarthritis, CVA in 2004, chronic back pain secondary to degenerative disc disease and spinal canal stenosis, history of vertebral fracture L2 through L5, chronic lower extremity edema, diverticular disease, hyperlipidemia, hypertension, previous history of myocardial infarction ,, L knee fx in past and torn R rotator cuff. cellulitis. Last Myocardial Infarction Date:: 2011 History of Any Multi-Drug Resistant Organisms: None Reported Past Surgical History: AICD, Heart Catheterization With Stent, Hernia Repair Additional Past Surgical History / Comment(s): PTCA, PTCA with stent (4 total), 04/05/13 AICD [employer], umbilical hernia repair, colonoscopy, circumcism, R eye surgery for strabismus. Past Anesthesia/Blood Transfusion Reactions: No Reported Reaction Date of Last Stent Placement:: 2012 Type of Cardiac Device: AICD Device Placement Date:: 04/05/13 Past Psychological History: No Psychological Hx Reported Smoking Status: Current some day smoker Past Alcohol Use History: None Reported Past Drug Use History: None Reported - Past Family History Father Family Medical History: Musculoskeletal Disorder, Neurologic Disorder Additional Family Medical History / Comment(s): Father had parkinson's dx and at age 84 yrs. Mother Family Medical History: Myocardial Infarction ([place]) Additional Family Medical History / Comment(s): Mother had 3 vessel CABG. She of a massive [place] at the age of 53 yrs. General Exam Limitations: no limitations General appearance: alert, in distress Head exam: Present: atraumatic, normocephalic Eye exam: Present: normal appearance, PERRL ENT exam: Present: normal exam Neck exam: Present: normal inspection Respiratory exam: Present: respiratory distress, wheezes, rales, rhonchi, decreased breath sounds Cardiovascular Exam: Present: regular rate, normal rhythm GI/Abdominal exam: Present: soft, distended. Absent: tenderness, guarding, rebound Extremities exam: Present: pedal edema Neurological exam: Present: alert, oriented X3, CN II-XII intact. Absent: motor sensory deficit Psychiatric exam: Present: normal affect, normal mood Skin exam: Present: warm, dry, intact. Absent: cyanosis, diaphoretic Course Vital Signs 02/09/18 02/09/18 02/09/18 20:26 20:47 21:20 Temperature 99 F Pulse Rate 71 72 Respiratory 26 H 28 H 30 H Rate Blood Pressure 157/84 O2 Sat by Pulse 97 Oximetry 02/09/18 21:28 Temperature Pulse Rate 70 Respiratory 28 H Rate Blood Pressure O2 Sat by Pulse Oximetry EKG Findings - EKG Comments: EKG Findings:: EKG: Normal sinus rhythm rate of 71, NH interval 156, QRS duration 110, QTC [address] segment elevation or depression Medical Decision Making - Medical Decision Making 62-year-old male presenting with cough and dyspnea. Patient does have history of COPD, he is currently smoking. Chest x-ray obtained, negative for pulmonary edema or infiltrate. Normal CBC, CMP is significant for CO2 of 33 likely related to chronic CO2 retention. Troponin and BNP are negative. Patient will be admitted for continued treatment of respiratory failure secondary to COPD exacerbation requiring BiPAP. - Lab Data Result diagrams: 02/09/18 20:45 02/09/18 20:45 Lab Results 02/09/18 02/09/18 02/09/18 Range/Units 20:45 20:45 20:45 WBC 9.5 (3.8-10.6) k/uL RBC 4.94 (4.30-5.90) m/uL Hgb 14.6 (13.0-17.5) gm/dL Hct 45.0 (39.0-53.0) % MCV 91.1 (80.0-100.0) fL MCH 29.6 (25.0-35.0) pg MCHC 32.5 (31.0-37.0) g/dL RDW 14.2 (11.5-15.5) % Plt Count 192 (150-450) k/uL Neutrophils % 65 % Lymphocytes % 23 % Monocytes % 6 % Eosinophils % 5 % Basophils % 0 % Neutrophils # 6.2 (1.3-7.7) k/uL Lymphocytes # 2.2 (1.0-4.8) k/uL Monocytes # 0.6 (0-1.0) k/uL Eosinophils # 0.4 (0-0.7) k/uL Basophils # 0.0 (0-0.2) k/uL PT (9.0-12.0) sec INR (<1.2) APTT (22.0-30.0) sec Sodium 139 (137-145) mmol/L Potassium 4.1 (3.5-5.1) mmol/L Chloride 100 (98-107) mmol/L Carbon Dioxide 33 H (22-30) mmol/L Anion Gap 6 mmol/L BUN 14 (9-20) mg/dL Creatinine 0.85 (0.66-1.25) mg/dL Est GFR (CKD-EPI)AfAm >90 (>60 ml/min/1.73 sqM) Est GFR (CKD-EPI)NonAf >90 (>60 ml/min/1.73 sqM) Glucose 94 (74-99) mg/dL Plasma Lactic Acid Hernán (0.7-2.0) mmol/L Calcium 9.2 (8.4-10.2) mg/dL Magnesium 1.8 (1.6-2.3) mg/dL Total Bilirubin 0.5 (0.2-1.3) mg/dL AST 30 (17-59) U/L ALT 40 (21-72) U/L Alkaline Phosphatase 54 (38-126) U/L Total Creatine Kinase 202 H (55-170) U/L CK-MB (CK-2) 4.1 H (0.0-2.4) ng/mL CK-MB (CK-2) Rel Index 2.0 Troponin I <0.012 (0.000-0.034) ng/mL NT-Pro-B Natriuret Pep pg/mL Total Protein 6.6 (6.3-8.2) g/dL Albumin 3.5 (3.5-5.0) g/dL 02/09/18 02/09/18 02/09/18 Range/Units 20:45 20:45 20:45 WBC (3.8-10.6) k/uL RBC (4.30-5.90) m/uL Hgb (13.0-17.5) gm/dL Hct (39.0-53.0) % MCV (80.0-100.0) fL MCH (25.0-35.0) pg MCHC (31.0-37.0) g/dL RDW (11.5-15.5) % Plt Count (150-450) k/uL Neutrophils % % Lymphocytes % % Monocytes % % Eosinophils % % Basophils % % Neutrophils # (1.3-7.7) k/uL Lymphocytes # (1.0-4.8) k/uL Monocytes # (0-1.0) k/uL Eosinophils # (0-0.7) k/uL Basophils # (0-0.2) k/uL PT 10.0 (9.0-12.0) sec INR 1.0 (<1.2) APTT 24.9 (22.0-30.0) sec Sodium (137-145) mmol/L Potassium (3.5-5.1) mmol/L Chloride (98-107) mmol/L Carbon Dioxide (22-30) mmol/L Anion Gap mmol/L BUN (9-20) mg/dL Creatinine (0.66-1.25) mg/dL Est GFR (CKD-EPI)AfAm (>60 ml/min/1.73 sqM) Est GFR (CKD-EPI)NonAf (>60 ml/min/1.73 sqM) Glucose (74-99) mg/dL Plasma Lactic Acid Hernán 1.8 (0.7-2.0) mmol/L Calcium (8.4-10.2) mg/dL Magnesium (1.6-2.3) mg/dL Total Bilirubin (0.2-1.3) mg/dL AST (17-59) U/L ALT (21-72) U/L Alkaline Phosphatase (38-126) U/L Total Creatine Kinase (55-170) U/L CK-MB (CK-2) (0.0-2.4) ng/mL CK-MB (CK-2) Rel Index Troponin I (0.000-0.034) ng/mL NT-Pro-B Natriuret Pep 243 pg/mL Total Protein (6.3-8.2) g/dL Albumin (3.5-5.0) g/dL Critical Care Time Critical Care Time: Yes Total Critical Care Time: 35 Disposition Clinical Impression: Acute exacerbation of chronic obstructive airways disease, Acute respiratory failure Disposition: ADMITTED IP TO THIS [facility] Condition: Stable Is patient prescribed a controlled substance at d/c from ED?: No Referrals: Yohan Anna MD [Primary Care Provider] - 1-2 days Decision to Admit Reason: Admit from EC Decision Date: 02/09/18 Decision Time: 22:05
[2018-02-09 21:27] LABS: Creatine Kinase 202 U/L (55-170)
[2018-02-09 21:34] LABS: Basophils % (A) 0 %; Eosinophils # (A) 0.4 k/uL (0-0.7); Eosinophils % (A) 5 %; HGB 14.6 gm/dL (13.0-17.5); Lymphocytes # (A) 2.2 k/uL (1.0-4.8); Lymphocytes % (A) 23 %; MCH 29.6 pg (25.0-35.0); MCHC 32.5 g/dL (31.0-37.0); MCV 91.1 fL (80.0-100.0); Mean Platelet Volume 7.2; Monocytes # (A) 0.6 k/uL (0-1.0); Monocytes % (A) 6 %; Neutrophils # (A) 6.2 k/uL (1.3-7.7); Neutrophils % (A) 65 %; Platelet Count 192 k/uL (150-450); RBC 4.94 m/uL (4.30-5.90); RDW 14.2 % (11.5-15.5); WBC 9.5 k/uL (3.8-10.6)
--- NOTE | 2018-02-09 21:38 | XR ---
EXAMINATION TYPE: XR chest 1V portable DATE OF EXAM: 02/09/2018 COMPARISON: 07/31/2017 HISTORY: Difficulty breathing TECHNIQUE: Single frontal view of the chest is obtained. FINDINGS: There is no heart failure nor confluent pneumonic infiltrate. There is left x-ray pacemake r with the lead tips in the right ventricle. Costophrenic angles are clear. IMPRESSION: No active cardiopulmonary disease. No change. No heart failure.
[2018-02-09 21:41] LABS: Creatine Kinase MB 4.1 ng/mL (0.0-2.4); Troponin I <0.012 ng/mL (0.000-0.034)
[2018-02-09] MEDS ORDERED: NALOXONE 0.4 MG/ML 1 ML VIAL IV PRN (21:57)
[2018-02-09] MEDS ORDERED: ONDANSETRON 4 MG/2 ML VIAL IVP PRN (21:57)
[2018-02-09] MEDS ORDERED: ACETAMINOPHEN TAB 325 MG TAB PO PRN (21:57)
[2018-02-09] MEDS ORDERED: ALBUTEROL NEBULIZED 2.5 MG/3 ML INHALATION PRN (21:59)
[2018-02-09] MEDS: cloNIDine HCL 0.2 MG TAB PO SCH (23:57)
[2018-02-09] MEDS: methylPREDNISolone SOD SUCCI 125 MG/2 ML VIAL IV SCH (23:58)
[2018-02-10] MEDS: ALBUTEROL NEBULIZED 2.5 MG/3 ML INHALATION SCH ×4 (00:09→11:37)
[2018-02-10] MEDS: MORPHINE SULFATE 4 MG/ML SYRINGE IV PRN ×3 (06:02→15:49)
[2018-02-10] MEDS: methylPREDNISolone SOD SUCCI 125 MG/2 ML VIAL IV SCH ×4 (06:03→23:16)
[2018-02-10 06:13] LABS: Glucose,Whole Blood 171 mg/dL (75-99)
[2018-02-10] MEDS: INSULIN ASPART 100 UNIT/ML 1 ML 10 ML VIAL SQ SCH ×4 (06:28→21:35)
[2018-02-10] MEDS: ISOSORBIDE MONONITRATE ER 60 MG TAB.ER.24H PO SCH (08:45)
[2018-02-10] MEDS: METOPROLOL TARTRATE 25 MG TAB PO SCH ×2 (08:45→20:24)
[2018-02-10] MEDS: LOSARTAN 50 MG TAB PO SCH (08:45)
[2018-02-10] MEDS: cloNIDine HCL 0.2 MG TAB PO SCH ×3 (08:46→23:16)
[2018-02-10] MEDS ORDERED: FUROSEMIDE 40 MG TAB PO SCH (09:00)
[2018-02-10] MEDS: CLOPIDOGREL 75 MG TAB PO SCH (09:14)
[2018-02-10] MEDS: FAMOTIDINE 20 MG TAB PO SCH ×2 (09:14→20:24)
[2018-02-10] MEDS: ATORVASTATIN 40 MG TAB PO SCH (09:14)
[2018-02-10] MEDS: ASPIRIN 325 MG TAB PO SCH (09:14)
[2018-02-10 11:49] LABS: Glucose,Whole Blood 162 mg/dL (75-99)
--- NOTE | 2018-02-10 13:46 | P.CNPUL ---
History of Present Illness Consult date: 02/10/18 Requesting physician: Erin Gomez Reason for consult: dyspnea, abnormal CXR/CT, obstructive sleep apnea Chief complaint: Shortness of breath, lower extremity swelling History of present illness: This is a very pleasant 62-year-old gentleman who follows with Dr. Yohan Anna as his primary care provider. He has a history of morbid obesity with obesity/hypoventilation syndrome/obstructive sleep apnea, cor pulmonale, coronary artery disease with previous stent placements 4, AICD placement secondary to ischemic cardio myopathy in 2012, diastolic congestive heart failure, osteoarthritis, CVA in 2004, chronic back pain secondary to degenerative disc disease, spinal cord stenosis. The patient also has chronic obstructive pulmonary disease and chronic and ongoing tobacco dependence. He is on Breo and DuoNeb in the outpatient setting. He presented here to the emergency room yesterday after a 2-3 day progressive worsening shortness of breath and increased swelling of his lower extremities. His chest x-ray shows no active cardiopulmonary disease. White count 9.5. Hemoglobin 14.6. Creatinine 0.85. ProBNP is 243. He has been utilizing the BiPAP 12/5 and 40% FiO2. He is seen today in consultation on the selective care unit. He is awake and alert in no acute distress. He is still dyspneic with minimal exertion. Still with bronchospasm and wheezing. He has been initiated on bronchodilators and IV Solu-Medrol. Review of Systems Constitutional: Reports chronic pain, Reports daytime sleepiness, Reports fatigue, Reports weight gain Eyes: denies blurred vision, denies decreased vision Ears: deny: decreased hearing Ears, nose, mouth and throat: Denies headache, Denies sore throat Cardiovascular: Reports decreased exercise tolerance, Reports dyspnea on exertion, Reports leg edema, Reports shortness of breath Respiratory: Reports dyspnea, Reports snoring, Reports wheezing Gastrointestinal: Reports bloating Genitourinary: Reports as per HPI Musculoskeletal: Reports gait dysfunction, Reports low back pain Musculoskeletal: bilateral: ankle swelling, foot swelling Integumentary: Reports darkening of skin, Reports striae Neurological: Denies numbness, Denies weakness Psychiatric: Reports anxiety Endocrine: Reports high blood sugars Hematologic/Lymphatic: Reports as per HPI Allergic/Immunologic: Reports as per HPI Past Medical History Past Medical History: Coronary Artery Disease (CAD), Chest Pain / Angina, COPD, CVA/TIA, Hyperlipidemia, Hypertension, Myocardial Infarction (IA), Osteoarthritis (OA), Respiratory Disorder, Sleep Apnea/CPAP/BIPAP Additional Past Medical History / Comment(s): COPD, obesity, obesity hypoventilation syndrome, obstructive sleep apnea, suspected CHF and cor pulmonale, coronary artery disease with previous stenting of the LAD, previous history of AICD placement, osteoarthritis, CVA in 2004, chronic back pain secondary to degenerative disc disease and spinal canal stenosis, history of vertebral fracture L2 through L5, chronic lower extremity edema, diverticular disease, hyperlipidemia, hypertension, previous history of myocardial infarction ,, L knee fx in past and torn R rotator cuff. cellulitis. Last Myocardial Infarction Date:: 2011 History of Any Multi-Drug Resistant Organisms: None Reported Past Surgical History: AICD, Heart Catheterization With Stent, Hernia Repair Additional Past Surgical History / Comment(s): PTCA, PTCA with stent (4 total), 04/05/13 AICD [employer], 1989' umbilical hernia repair, colonoscopy, circumcism, R eye surgery for strabismus. Past Anesthesia/Blood Transfusion Reactions: No Reported Reaction Date of Last Stent Placement:: 2012 Type of Cardiac Device: AICD Device Placement Date:: 04/05/13 Past Psychological History: No Psychological Hx Reported Additional Psychological History / Comment(s): Pt is living in a home with roomates. He can drive. He states he uses a cane or walker at home. Smoking Status: Current some day smoker Past Alcohol Use History: None Reported Additional Past Alcohol Use History / Comment(s): Pt states he started smoking around 1970 and smokes just a couple cigarettes a day Past Drug Use History: None Reported - Past Family History Father Family Medical History: Musculoskeletal Disorder, Neurologic Disorder Additional Family Medical History / Comment(s): Father had parkinson's dx and at age 84 yrs. Mother Family Medical History: Myocardial Infarction (IA) Additional Family Medical History / Comment(s): Mother had 3 vessel CABG. She of a massive IA at the age of 53 yrs. Medications and Allergies Home Medications Medication Instructions Recorded Confirmed Type Clopidogrel [Plavix] 75 mg PO DAILY #30 tab 02/05/16 02/09/18 Rx Isosorbide Mononitrate ER [Imdur] 60 mg PO DAILY 04/25/17 02/09/18 History Metoprolol Tartrate [Lopressor] 25 mg PO BID 04/25/17 02/09/18 History Nystatin 100,000 Unit/gm Powd 1 applic TOPICAL BID 04/25/17 02/10/18 History [Mycostatin Powder] Losartan [Cozaar] 50 mg PO DAILY #30 tab 04/27/17 02/09/18 Rx cloNIDine HCL [Catapres] 0.2 mg PO Q8HR #90 tab 05/17/17 02/09/18 Rx Potassium Chloride ER [K-Dur 20] 20 meq PO DAILY tab.er.prt 08/09/17 02/09/18 Rx Aspirin EC [Ecotrin] 325 mg PO DAILY 02/09/18 02/09/18 History Albuterol Inhaler [Ventolin Hfa 2 puff INHALATION RT-Q4H PRN 02/10/18 02/10/18 History Inhaler] Atorvastatin [Lipitor] 40 mg PO HS 02/10/18 02/10/18 History Budesonide/Formoterol Fumarate 2 puff INHALATION RT-DAILY 02/10/18 02/10/18 History [Symbicort 160-4.5 Mcg Inhaler] Cetirizine HCl [Zyrtec] 10 mg PO DAILY 02/10/18 02/10/18 History Cholecalciferol [Vitamin D3] 1,000 unit PO DAILY 02/10/18 02/10/18 History Fluconazole [Diflucan] 200 mg PO DAILY 02/10/18 02/10/18 History Furosemide [Lasix] 40 mg PO DAILY 02/10/18 02/10/18 History Vitamin B Complex/Folic Acid 0.4 mg PO DAILY 02/10/18 02/10/18 History [B-Complex Tablet] oxyCODONE-APAP 7.5-325MG [Percocet 1 tab PO Q4HR PRN 02/10/18 02/10/18 History 7.5-325 mg] Allergies Allergy/AdvReac Type Severity Reaction Status Date / Time No Known Allergies Allergy Verified 02/10/18 11:01 Physical Exam Vitals: Vital Signs Temp Pulse Pulse Resp BP BP BP 02/10/18 12:00 73 21 02/10/18 11:53 72 02/10/18 11:37 68 02/10/18 11:10 97.3 F L 73 21 152/97 02/10/18 08:30 97.3 F L 70 18 160/102 02/10/18 08:00 70 18 02/10/18 07:55 72 02/10/18 07:44 72 02/10/18 04:27 17 02/10/18 04:26 97.6 F 65 17 122/76 02/10/18 03:47 60 02/10/18 03:34 64 02/10/18 00:20 62 02/10/18 00:11 60 02/09/18 23:48 62 02/09/18 23:11 97.1 F L 62 24 158/98 02/09/18 23:00 98.1 F 71 20 141/65 02/09/18 22:00 98.0 F 66 33 H 133/70 02/09/18 21:28 68 34 H 138/75 02/09/18 21:20 72 30 H 02/09/18 20:47 28 H 02/09/18 20:26 99 F 71 26 H 157/84 Pulse Ox 02/10/18 12:00 02/10/18 11:53 02/10/18 11:37 02/10/18 11:10 02/10/18 08:30 97 02/10/18 08:00 02/10/18 07:55 02/10/18 07:44 02/10/18 04:27 02/10/18 04:26 95 02/10/18 03:47 02/10/18 03:34 02/10/18 00:20 02/10/18 00:11 02/09/18 23:48 02/09/18 23:11 98 02/09/18 23:00 98 02/09/18 22:00 99 02/09/18 21:28 98 02/09/18 21:20 02/09/18 20:47 02/09/18 20:26 97 Intake and Output 02/09/18 02/10/18 02/10/18 22:59 06:59 14:59 Intake Total 460 Output Total 600 400 Balance -600 60 Intake: Oral 460 Output: Urine 600 400 Other: # Voids 1 Weight 174.633 kg 171 kg - Constitutional General appearance: morbidly obese - EENT Eyes: EOMI, PERRLA ENT: hearing grossly normal Ears: bilateral: normal - Neck Neck: normal ROM Carotids: bilateral: upstroke normal Thyroid: bilateral: normal size - Respiratory Respiratory: bilateral: wheezing, prolonged expiration - Cardiovascular Rhythm: regular Heart sounds: normal: S1, S2 - Gastrointestinal General gastrointestinal: normal bowel sounds - Integumentary Integumentary: normal turgor - Neurologic Neurologic: CNII-XII intact - Musculoskeletal Musculoskeletal: generalized weakness - Psychiatric Psychiatric: A&O x's 3, appropriate affect, intact judgment & insight Results - Laboratory Findings CBC and BMP: 02/09/18 20:45 02/09/18 20:45 PT/INR, D-dimer PT 10.0 sec (9.0-12.0) 02/09/18 20:45 INR 1.0 (<1.2) 02/09/18 20:45 Abnormal lab findings: Abnormal Labs 02/09/18 02/09/18 02/10/18 20:45 20:45 06:11 Carbon Dioxide 33 H POC Glucose (mg/dL) 171 H Total Creatine Kinase 202 H CK-MB (CK-2) 4.1 H 02/10/18 11:42 Carbon Dioxide POC Glucose (mg/dL) 162 H Total Creatine Kinase CK-MB (CK-2) - Diagnostic Findings Chest x-ray: image reviewed Assessment and Plan Assessment: Impression: #1 Acute on chronic hypoxic respiratory failure secondary to an acute exacerbation of chronic obstructive pulmonary disease. Currently utilizing BiPAP 12/5 at 40% FiO2. #2 Acute on chronic hypercapnic respiratory failure secondary to above. #3 Morbid obesity with obesity/hypoventilation syndrome/obstructive sleep apnea. Utilizing CPAP in the outpatient setting. #4 Chronic and ongoing tobacco dependence. #5 Coronary artery disease with previous stent placement 4. #6 Ischemic cardiomyopathy status post AICD placement in 2012. #7 History of CVA 2004. #8 Hypertension. #9 Hyperlipidemia. #10 Chronic low back pain. #11 Diverticular disease. Plan: The patient was seen and evaluated by Dr. Robbins. Chest x-ray and labs were reviewed. The patient is being treated for an acute exacerbation of his COPD. We will continue with IV Solu-Medrol. Change updrafts DuoNeb inhalations every 4 hours, Pulmicort and Perforomist inhalations every 12 hours. No need for antibiotics at this point. Continue diuretics. Heparin for DVT prophylaxis. Pepcid for GI prophylaxis. Increase his activity as tolerated. The patient was asked to bring his CPAP machine from home so we could evaluate settings and its effectiveness. The patient is educated regarding the importance of complete smoking cessation. NicoDerm patch will be applied. We'll continue to follow. I, the cosigning physician, performed a history & physical examination of the patient. Lungs sounds are clear. Maintaining good O2 saturations in the 90s on BiPAP at 40% FiO2. I discussed the assessment and plan of care with my nurse practitioner, Piper Albarado. I attest to the above consultation as dictated by her. Time with Patient: Greater than 30
[2018-02-10 14:24] LABS: Hemoglobin A1C 5.8 % (4.0-6.0)
[2018-02-10] MEDS: IPRATROPIUM-ALBUTEROL 3 ML NEB INHALATION SCH ×2 (15:11→21:24)
[2018-02-10] MEDS: HEPARIN SODIUM,PORCINE 5,000 UNIT/ML 1 ML VIAL SQ SCH ×2 (15:18→23:16)
[2018-02-10] MEDS: NYSTATIN 100,000 UNIT/GM POWD 15 GM TOPICAL SCH (15:29)
--- NOTE | 2018-02-10 15:39 | HP ---
HISTORY AND PHYSICAL DATE OF SERVICE: 02/10/2018 CHIEF COMPLAINT: Shortness of breath. HISTORY OF PRESENT ILLNESS: This 62-year-old gentleman with a past medical history of multiple medical problems including CAD, history of chest pain, COPD, CVA, TIA, hypertension, hypertension, DJD, history of sleep apnea, history of obstructive sleep apnea, history of obesity hyperventilation syndrome, CHF with chronic diastolic dysfunction being followed by Dr. Tisha Anna in the outpatient setting was complaining of shortness of breath over the past several days. Because of increasing difficulty, the patient came to [facility] and was admitted for further evaluation. Patient also complaining of cough, wet cough, increasing for the last 48 hours also. Bilateral lower extremity swelling was also noted. The possibility of COPD exacerbation considered and CHF is also considered. There is no history of fever, rigors, chills. No history of headache, loss of consciousness, seizures. PAST MEDICAL HISTORY: History of CAD, history of COPD, CVA, TIA, history hypertension, hyperlipidemia, myocardial infarction, DJD, history of sleep apnea, history of CAD and stent. MEDICATIONS: Prior to admission include home medications are: 1. Albuterol 2 puffs q.4h p.r.n. 2. Diflucan 200 mg. 3. Lasix 40 mg b.i.d. 4. Zyrtec 10 mg b.i.d. 5. Oxycodone 7.2 mg q.4h p.r.n. 6. Vitamin D 3000 daily. 7. Symbicort 160/4.5, two puffs b.i.d. daily. 8. Lipitor 40 mg q.h.s. 9. Vitamin B complex 1 p.o. daily. 10.Nystatin 1 application b.i.d. 11.Catapres 0.2 q.8. 12.K-Dur 10 mEq p.o. daily. 13.Lopressor 25 mg p.o. b.i.d. 14.Cozaar 50 mg p.o. daily. 15.Imdur 60 mg p.o. daily. 16.Plavix 75 mg p.o. daily. 17.Ecotrin 325 mg p.o. daily. ALLERGIES: None. FAMILY HISTORY: History of DJD in the family, history of Parkinson's in the family. SOCIAL HISTORY: History of smoking on a daily basis. No history of alcohol intake. REVIEW OF SYSTEMS: ENT: Diminished hearing, diminished vision. CARDIOVASCULAR: As mentioned earlier. RESPIRATORY: As mentioned earlier. GI: No nausea. : No dysuria. NERVOUS SYSTEM: No numbness or tingling. ALLERGY/IMMUNOLOGY: No history of asthma. MUSCULOSKELETAL: As mentioned earlier. HEMATOLOGY/ONCOLOGY: No history of diabetes or hypothyroidism. CONSTITUTIONAL: As mentioned. DERMATOLOGY: Negative. RHEUMATOLOGY: Negative. PSYCHIATRY: As mentioned earlier. PHYSICAL EXAMINATION: Alert and oriented x3. Pulse is 73, blood pressure 158/97, respiration 21, temperature 97.2, pulse ox 97% on BiPAP. HEENT: Conjunctivae normal. Oral mucosa moist. NECK: No jugular venous distention. No carotid bruit. No lymph node enlargement. Otherwise neck is obese. CARDIOVASCULAR: S1, S2. No S3, no S4. RESPIRATORY: Breath sounds diminished in the bases. Bilateral scattered rhonchi and crackles. Expiratory wheezing also present. ABDOMEN: Soft, obese, nontender. No mass palpable. LEGS: No edema, no swelling. NERVOUS SYSTEM: Higher functions as mentioned. Moves all 4 limbs. No focal motor sensory deficits. LYMPHATICS: No lymphadenopathy in the neck, axillae, groin. SKIN: No ulcer, rash or bleeding. LABS: CBC within normal limits. Sodium 130, potassium 4.1. Creatine kinase is 202, CK-MB is 4.1. ASSESSMENT: 1. Shortness of breath with possible chronic obstructive pulmonary disease acute exacerbation as well as congestive heart failure acute exacerbation with acute on chronic diastolic dysfunction. 2. Obesity hypoventilation syndrome. 3. Bilateral leg swelling. 4. Hypertension. 5. Hyperlipidemia. 6. History of coronary artery disease, stent. 7. History of AICD. 8. History of chronic low back pain. 9. Chronic hypoxic respiratory failure on home O2. 10.Morbid obesity with BMI of 51.1. 11.Increased random blood sugar. RECOMMENDATIONS AND DISCUSSION: In this 62-year-old gentleman who presented with multiple complex medical issues, we will monitor the patient closely. Continue the current medications. Will optimize bronchodilator treatment and IV steroids. Empiric antibiotics. Closely follow with Dr. Robbins and Cardiology. I would also recommend IV Lasix, also. Guarded prognosis because of multiple complex medical issues. See orders for details. Further recommendations to follow. See orders for details. MMODL / IJN: [id number] /
[2018-02-10] MEDS: LEVOFLOXACIN 500MG-D5W PMX 500 MG in DEXTROSE/WATER 1 100ML.BAG IVPB SCH (15:50)
[2018-02-10 17:01] LABS: Glucose,Whole Blood 161 mg/dL (75-99)
[2018-02-10] MEDS: oxyCODONE-APAP 7.5-325MG 1 EACH TAB PO PRN (20:23)
[2018-02-10] MEDS: FUROSEMIDE 10 MG/ML 4 ML VIAL IV SCH (20:24)
[2018-02-10 20:58] LABS: Glucose,Whole Blood 152 mg/dL (75-99)
[2018-02-10] MEDS: FORMOTEROL FUMARATE 20 MCG/2 ML NEBU INHALATION SCH (21:24)
[2018-02-10] MEDS: BUDESONIDE 1 MG/2 ML NEBU INHALATION SCH (21:24)
[2018-02-10 23:41] LABS: Appearance,Urine Clear (Clear); Bilirubin,Urine Negative (Negative); Blood,Urine Negative (Negative); Color,Urine Light Yellow; Glucose,Urine (UA) Negative (Negative); Ketones,Urine Negative (Negative); Leukocyte Esterase,Urine Negative (Negative); Nitrite,Urine Negative (Negative); Protein,Urine Negative (Negative); Specific Gravity,Urine 1.006 (1.001-1.035); Urobilinogen,Urine <2.0 mg/dL (<2.0)
[2018-02-11] MEDS: IPRATROPIUM-ALBUTEROL 3 ML NEB INHALATION SCH ×6 (00:55→21:49)
[2018-02-11] MEDS: oxyCODONE-APAP 7.5-325MG 1 EACH TAB PO PRN ×5 (02:56→21:17)
[2018-02-11] MEDS: methylPREDNISolone SOD SUCCI 125 MG/2 ML VIAL IV SCH ×4 (06:10→23:34)
[2018-02-11] MEDS: INSULIN ASPART 100 UNIT/ML 1 ML 10 ML VIAL SQ SCH ×4 (06:10→21:44)
[2018-02-11 06:27] LABS: Glucose,Whole Blood 149 mg/dL (75-99)
[2018-02-11 07:51] LABS: Basophils % (A) 0 %; Eosinophils % (A) 0 %; HCT 43.4 % (39.0-53.0); Lymphocytes # (A) 1.1 k/uL (1.0-4.8); Lymphocytes % (A) 8 %; MCH 28.8 pg (25.0-35.0); MCHC 32.2 g/dL (31.0-37.0); MCV 89.5 fL (80.0-100.0); Mean Platelet Volume 7.4; Monocytes # (A) 0.5 k/uL (0-1.0); Monocytes % (A) 3 %; Neutrophils # (A) 13.1 k/uL (1.3-7.7); Neutrophils % (A) 89 %; Platelet Count 182 k/uL (150-450); RBC 4.84 m/uL (4.30-5.90); RDW 14.2 % (11.5-15.5); WBC 14.7 k/uL (3.8-10.6)
[2018-02-11] MEDS: FORMOTEROL FUMARATE 20 MCG/2 ML NEBU INHALATION SCH ×2 (08:06→21:49)
[2018-02-11] MEDS: BUDESONIDE 1 MG/2 ML NEBU INHALATION SCH ×2 (08:06→21:49)
[2018-02-11 08:32] LABS: Anion Gap 8 mmol/L; Blood Urea Nitrogen 20 mg/dL (9-20); Calcium 9.2 mg/dL (8.4-10.2); Carbon Dioxide 28 mmol/L (22-30); Chloride 103 mmol/L (98-107); Glucose 140 mg/dL (74-99); Potassium 4.5 mmol/L (3.5-5.1); Sodium 139 mmol/L (137-145)
[2018-02-11] MEDS ORDERED: NON-FORMULARY DRUG (Vitamin B Complex/Folic Acid [B-Complex Tablet] 0.4 MG) PO SCH (09:00)
[2018-02-11] MEDS ORDERED: FLUCONAZOLE 200 MG PO SCH (09:00)
[2018-02-11] MEDS: CHOLECALCIFEROL 1,000 UNIT TAB PO SCH (09:07)
[2018-02-11] MEDS: ASPIRIN 325 MG TAB PO SCH (09:07)
[2018-02-11] MEDS: POTASSIUM CHLORIDE ER 20 MEQ TAB.ER PO SCH (09:07)
[2018-02-11] MEDS: cloNIDine HCL 0.2 MG TAB PO SCH ×3 (09:07→23:35)
[2018-02-11] MEDS: LOSARTAN 50 MG TAB PO SCH (09:07)
[2018-02-11] MEDS: LORATADINE 10 MG TAB PO SCH (09:07)
[2018-02-11] MEDS: FUROSEMIDE 10 MG/ML 4 ML VIAL IV SCH ×2 (09:08→19:58)
[2018-02-11] MEDS: CLOPIDOGREL 75 MG TAB PO SCH (09:08)
[2018-02-11] MEDS: ATORVASTATIN 40 MG TAB PO SCH (09:08)
[2018-02-11] MEDS: HEPARIN SODIUM,PORCINE 5,000 UNIT/ML 1 ML VIAL SQ SCH ×3 (09:08→23:34)
[2018-02-11] MEDS: METOPROLOL TARTRATE 25 MG TAB PO SCH ×2 (09:08→19:58)
[2018-02-11] MEDS: FAMOTIDINE 20 MG TAB PO SCH ×2 (09:09→19:58)
[2018-02-11] MEDS: ISOSORBIDE MONONITRATE ER 60 MG TAB.ER.24H PO SCH (09:09)
[2018-02-11] MEDS: NYSTATIN 100,000 UNIT/GM POWD 15 GM TOPICAL SCH ×2 (09:09→20:11)
[2018-02-11 12:01] LABS: Glucose,Whole Blood 129 mg/dL (75-99)
[2018-02-11] MEDS: CLOTRIMAZOLE 1% CREAM 15 GM TUBE TOPICAL SCH ×2 (12:47→19:58)
[2018-02-11 16:49] LABS: Glucose,Whole Blood 188 mg/dL (75-99)
[2018-02-11] MEDS: LEVOFLOXACIN 500MG-D5W PMX 500 MG in DEXTROSE/WATER 1 100ML.BAG IVPB SCH (16:50)
--- NOTE | 2018-02-11 17:22 | PN ---
PROGRESS NOTE DATE OF SERVICE: 02/11/2018. This 62-year-old gentleman was admitted with mostly COPD exacerbation as well as CHF exacerbation with significant shortness of breath and patient also had obesity hypoventilation for which he is using BiPAP with Dr. Robbins is following the patient closely. The patient is complaining having mucopurulent sputum at this time. The patient has been started on broad-spectrum IV antibiotics. No chest pain no palpitation. PAST MEDICAL HISTORY: Reviewed. REVIEW OF SYSTEMS: CARDIOVASCULAR: No angina. RESPIRATORY: As mentioned earlier. GI: As mentioned earlier. : No dysuria. NERVOUS: No numbness or weakness. CURRENT MEDICATIONS: Reviewed, include: 1. Albuterol 2.5 q.i.d. 2. DuoNeb q.i.d. and p.r.n. 3. Lipitor 40 mg. 4. Pulmicort. 5. Catapres. 6. Plavix. 7. Lotrimin. 8. Pepcid. 9. Perforomist. 10.Lasix 40 IV b.i.d. 11.NovoLog. 12.Imdur. 13.Levaquin. 14.Claritin. 15.Solu-Medrol 60 IV every 6 hours. 16.Lopressor. 17.Narcan. 18.Percocet. 19.K-Dur 10 mEq. PHYSICAL EXAM: Patient is alert, oriented x3. Pulse 71, blood pressure 129/77, respirations 24, temperature 97.2, pulse ox 96% on 3L. HEENT: Conjunctivae normal. Oral mucosa moist. NECK: No jugular venous distention. No carotid bruits. No lymph node enlargement. CARDIOVASCULAR: S1, S2 muffled. RESPIRATORY: Breath sounds diminished in the bases. Bilateral scattered rhonchi and crackles. Coarse crackles present. ABDOMEN: Soft, nontender. No mass palpable. Obese. LEGS: No edema. NERVOUS SYSTEM: No focal deficits. LABS: WBC 14. Other labs are noted. ASSESSMENT: 1. Shortness of breath with possible chronic obstructive pulmonary disease acute exacerbation with acute purulent tracheobronchitis. 2. Congestive heart failure acute exacerbation with acute on chronic diastolic dysfunction. 3. Obesity hypoventilation syndrome. 4. Acute hypoxic respiratory failure on BiPAP. 5. Bilateral leg swelling. 6. Hypertension. 7. Hyperlipidemia. 8. History of coronary artery disease, stent. 9. History of automatic implantable cardioverter-defibrillator. 10.History of chronic low back pain. 11.Chronic hypoxic respiratory failure on home O2. 12.Morbid obesity, BMI of 51.1. 13.Increased random blood sugar. RECOMMENDATIONS AND DISCUSSION: Recommend to continue current medical management and symptomatic treatment, optimize bronchodilator treatment. I would also recommend a sputum culture and IV antibiotics as well. Otherwise, I would recommend Rocephin and Zithromax and continue to monitor. Closely follow with Pulmonology. Guarded prognosis because of multiple complex medical issues. Further recommendations to follow. IV steroids have been initiated. MMODL / IJN: [id number] /
[2018-02-11] MEDS: AZITHROMYCIN 500 MG in SODIUM CHLORIDE 0.9% 250 ML IVPB SCH (18:58)
[2018-02-11] MEDS: cefTRIAXone 2,000 MG in SODIUM CHLORIDE 0.9% 100 ML IVPB SCH (21:17)
[2018-02-11 21:34] LABS: Glucose,Whole Blood 119 mg/dL (75-99)
[2018-02-12] MEDS: IPRATROPIUM-ALBUTEROL 3 ML NEB INHALATION SCH ×6 (01:06→19:31)
[2018-02-12] MEDS: oxyCODONE-APAP 7.5-325MG 1 EACH TAB PO PRN ×5 (01:17→20:55)
[2018-02-12 05:56] LABS: Basophils % (A) 0 %; Eosinophils % (A) 0 %; HCT 43.5 % (39.0-53.0); HGB 13.6 gm/dL (13.0-17.5); Lymphocytes % (A) 8 %; MCH 28.5 pg (25.0-35.0); MCHC 31.2 g/dL (31.0-37.0); MCV 91.1 fL (80.0-100.0); Monocytes # (A) 0.4 k/uL (0-1.0); Monocytes % (A) 3 %; Neutrophils % (A) 88 %; Platelet Count 207 k/uL (150-450); RBC 4.78 m/uL (4.30-5.90); RDW 14.4 % (11.5-15.5); WBC 12.5 k/uL (3.8-10.6)
[2018-02-12 06:09] LABS: Anion Gap 5 mmol/L; Blood Urea Nitrogen 26 mg/dL (9-20); Calcium 9.3 mg/dL (8.4-10.2); Carbon Dioxide 34 mmol/L (22-30); Chloride 100 mmol/L (98-107); Glucose 130 mg/dL (74-99); Potassium 4.5 mmol/L (3.5-5.1); Sodium 139 mmol/L (137-145)
[2018-02-12 06:19] LABS: Glucose,Whole Blood 122 mg/dL (75-99)
[2018-02-12] MEDS: INSULIN ASPART 100 UNIT/ML 1 ML 10 ML VIAL SQ SCH ×4 (06:21→22:57)
[2018-02-12] MEDS: methylPREDNISolone SOD SUCCI 125 MG/2 ML VIAL IV SCH ×4 (06:44→23:26)
[2018-02-12] MEDS: FORMOTEROL FUMARATE 20 MCG/2 ML NEBU INHALATION SCH ×2 (08:28→19:31)
[2018-02-12] MEDS: BUDESONIDE 1 MG/2 ML NEBU INHALATION SCH ×2 (08:28→19:31)
--- NOTE | 2018-02-12 08:46 | XR ---
EXAMINATION TYPE: XR chest 1V portable DATE OF EXAM: 02/12/2018 HISTORY: pneumonia. REFERENCE: Previous study dated 02/09/2018. FINDINGS: There is a bipolar pacing device in place on the left. The heart is enlarged. The lungs are clear. Pleural spaces are clear. IMPRESSION: MILD CARDIOMEGALY.
[2018-02-12] MEDS: NYSTATIN 100,000 UNIT/GM POWD 15 GM TOPICAL SCH ×2 (08:47→20:53)
[2018-02-12] MEDS: METOPROLOL TARTRATE 25 MG TAB PO SCH ×2 (08:49→20:53)
[2018-02-12] MEDS: ATORVASTATIN 40 MG TAB PO SCH (08:49)
[2018-02-12] MEDS: ASPIRIN 325 MG TAB PO SCH (08:50)
[2018-02-12] MEDS: HEPARIN SODIUM,PORCINE 5,000 UNIT/ML 1 ML VIAL SQ SCH ×3 (08:50→23:26)
[2018-02-12] MEDS: FAMOTIDINE 20 MG TAB PO SCH ×2 (08:50→20:53)
[2018-02-12] MEDS: cloNIDine HCL 0.2 MG TAB PO SCH ×3 (08:50→23:25)
[2018-02-12] MEDS: LOSARTAN 50 MG TAB PO SCH (08:51)
[2018-02-12] MEDS: CLOPIDOGREL 75 MG TAB PO SCH (08:51)
[2018-02-12] MEDS: ISOSORBIDE MONONITRATE ER 60 MG TAB.ER.24H PO SCH (08:51)
[2018-02-12] MEDS: CHOLECALCIFEROL 1,000 UNIT TAB PO SCH (08:51)
[2018-02-12] MEDS: POTASSIUM CHLORIDE ER 20 MEQ TAB.ER PO SCH (08:51)
[2018-02-12] MEDS: FUROSEMIDE 10 MG/ML 4 ML VIAL IV SCH ×2 (08:51→20:53)
[2018-02-12] MEDS: LORATADINE 10 MG TAB PO SCH (08:51)
[2018-02-12] MEDS: CLOTRIMAZOLE 1% CREAM 15 GM TUBE TOPICAL SCH ×2 (09:02→22:59)
--- NOTE | 2018-02-12 10:39 | P.PN ---
Subjective Progress Note Date: 02/12/18 Principal diagnosis: Acute chronic hypoxic respiratory failure secondary to an acute exacerbation of COPD, morbid obesity, poor ventilation syndrome. This is a very pleasant 62-year-old gentleman who follows with Dr. Yohan Anna as his primary care provider. He has a history of morbid obesity with obesity/hypoventilation syndrome/obstructive sleep apnea, cor pulmonale, coronary artery disease with previous stent placements 4, AICD placement secondary to ischemic cardio myopathy in 2012, diastolic congestive heart failure, osteoarthritis, CVA in 2004, chronic back pain secondary to degenerative disc disease, spinal cord stenosis. The patient also has chronic obstructive pulmonary disease and chronic and ongoing tobacco dependence. He is on Breo and DuoNeb in the outpatient setting. He presented here to the emergency room yesterday after a 2-3 day progressive worsening shortness of breath and increased swelling of his lower extremities. His chest x-ray shows no active cardiopulmonary disease. White count 9.5. Hemoglobin 14.6. Creatinine 0.85. ProBNP is 243. He has been utilizing the BiPAP 12/5 and 40% FiO2. He is seen today in consultation on the selective is having a hard time bringing up phlegm. On 02/12/2018 patient seen in follow-up. Lung sounds reveal diffuse wheezes, and rhonchi, patient remains on BiPAP, he is tolerating well, he states he is more comfortable on that right now. awake and alert in no acute distress. Still with bronchospasm and wheezing. He is able to bring up some sputum. Afebrile, vital signs are stable. His chest x-ray has been reviewed, shows mild cardiomegaly. Acute pulmonary process. Continue current medical treatment , continue nebulized bronchodilators, diuretics, antibiotics and steroids. Objective - Vital Signs Vital signs: Vital Signs Temp 97.6 F 02/12/18 08:00 Pulse 68 02/12/18 08:45 Resp 18 02/12/18 08:00 BP 139/102 02/12/18 08:00 Pulse Ox 95 02/12/18 08:00 Intake & Output 02/11/18 02/12/18 02/12/18 18:59 06:59 18:59 Intake Total 720 350 Output Total 400 1150 Balance 320 -800 Weight 171.3 kg Intake: Intake, IV Titration 350 Amount Azithromycin 500 mg In 250 Sodium Chloride 0.9% 250 ml @ 250 mls/hr IVPB Q24H [facility] Rx#:[id number] cefTRIAXone 2,000 mg In 100 Sodium Chloride 0.9% 100 ml @ 100 mls/hr IVPB Q24H [facility] Rx#:[id number] Oral 720 Output: Urine 400 1150 Other: Voiding Method Urinal Urinal Urinal # Voids 400 # Bowel Movements 0 0 - Exam - Constitutional General appearance: morbidly obese - EENT Eyes: EOMI, PERRLA ENT: hearing grossly normal Ears: bilateral: normal - Neck Neck: normal ROM Carotids: bilateral: upstroke normal Thyroid: bilateral: normal size - Respiratory Respiratory: bilateral: wheezing, prolonged expiration - Cardiovascular Rhythm: regular Heart sounds: normal: S1, S2 - Gastrointestinal General gastrointestinal: normal bowel sounds - Integumentary Integumentary: normal turgor - Neurologic Neurologic: CNII-XII intact - Musculoskeletal Musculoskeletal: generalized weakness - Psychiatric Psychiatric: A&O x's 3, appropriate affect, intact judgment & insight - Labs CBC & Chem 7: 02/12/18 05:18 02/12/18 05:18 Labs: Abnormal Lab Results - Last 24 Hours (Table) 02/11/18 02/11/18 02/11/18 Range/Units 11:59 16:28 21:14 WBC (3.8-10.6) k/uL Neutrophils # (1.3-7.7) k/uL Carbon Dioxide (22-30) mmol/L BUN (9-20) mg/dL Glucose (74-99) mg/dL POC Glucose (mg/dL) 129 H 188 H 119 H (75-99) mg/dL 02/12/18 02/12/18 02/12/18 Range/Units 05:18 05:18 06:07 WBC 12.5 H (3.8-10.6) k/uL Neutrophils # 11.0 H (1.3-7.7) k/uL Carbon Dioxide 34 H (22-30) mmol/L BUN 26 H (9-20) mg/dL Glucose 130 H (74-99) mg/dL POC Glucose (mg/dL) 122 H (75-99) mg/dL Microbiology - Last 24 Hours (Table) 02/09/18 20:45 Blood Culture - Preliminary Blood No Growth after 48 hours Assessment and Plan Plan: #1 Acute on chronic hypoxic respiratory failure secondary to an acute exacerbation of chronic obstructive pulmonary disease. Currently utilizing BiPAP 14/5 at 40% FiO2. #2 Acute on chronic hypercapnic respiratory failure secondary to above. #3 Morbid obesity with obesity/hypoventilation syndrome/obstructive sleep apnea. Utilizing CPAP in the outpatient setting. #4 Chronic and ongoing tobacco dependence. #5 Coronary artery disease with previous stent placement 4. #6 Ischemic cardiomyopathy status post AICD placement in 2012. #7 History of CVA 2004. #8 Hypertension. #9 Hyperlipidemia. #10 Chronic low back pain. #11 Diverticular disease. Plan: Today's chest x-ray has been reviewed, shows no acute pulmonary process, he is afebrile, hemodynamically stable, still remains bronchospastic and congested, continue with current medical treatment, antibiotics, Solu-Medrol, and diuretics. Patient's BiPAP settings have been increased to 14 and 6, FiO2 of 40 %. I performed a history & physical examination of the patient and discussed their management with my nurse practitioner, Olga Lidia Molina. I reviewed the nurse practitioner's note and agree with the documented findings and plan of care. Lung sounds are positive for diffuse wheezing. The findings and the impression was discussed with the patient. I attest to the documentation by the nurse practitioner. Time with Patient: Less than 30
[2018-02-12 11:29] LABS: Glucose,Whole Blood 120 mg/dL (75-99)
[2018-02-12] MEDS ORDERED: LEVOFLOXACIN 500 MG TAB PO SCH (15:00)
[2018-02-12] MEDS: AZITHROMYCIN 500 MG in SODIUM CHLORIDE 0.9% 250 ML IVPB SCH (16:04)
[2018-02-12 16:54] LABS: Glucose,Whole Blood 161 mg/dL (75-99)
[2018-02-12] MEDS: cefTRIAXone 2,000 MG in SODIUM CHLORIDE 0.9% 100 ML IVPB SCH (17:08)
[2018-02-12 21:20] LABS: Glucose,Whole Blood 168 mg/dL (75-99)
--- NOTE | 2018-02-12 22:14 | PN ---
PROGRESS NOTE DATE OF SERVICE: 02/12/2018. INTERVAL HISTORY: This 62-year-old gentleman admitted with mostly COPD exacerbation as well as CHF exacerbation is being closely monitored. The patient has got a very thick yellowish in the sputum at this time. Repeat chest x-ray done this morning which was personally reviewed by me showed also increased bronchovascular markings. No chest pain. No palpitations. No fever. EXAM: Alert and oriented x3. Pulse is 72, blood pressure 140/59, respiration 18, temperature 97 degrees, pulse ox 94% on 3 L. HEENT is conjunctivae normal. NECK: No jugular venous distention. CARDIOVASCULAR: S1, S2 muffled. RESPIRATORY: Breath sounds diminished in the bases. Bilateral scattered rhonchi and crackles. Abdomen is soft, obese, nontender. Legs are no edema. No swelling. Central nervous system: No focal deficits. LAB STUDIES: WBC 12.2, sodium 139, potassium 4.5. ASSESSMENT: 1. Shortness of breath with possible chronic obstructive pulmonary disease acute exacerbation as well as acute purulent tracheobronchitis. 2. Congestive heart failure acute exacerbation with acute on chronic diastolic dysfunction. 3. Obesity hypoventilation syndrome. 4. Acute hypoxic respiratory failure on BiPAP. 5. Bilateral leg swelling. 6. Hypertension. 7. Hyperlipidemia. 8. History of coronary artery disease stent. 9. History of AICD. 10.History of chronic low back pain. 11.History of chronic hypoxic respiratory failure on home O2. 12.Morbid obesity. BMI 51.1. 13.Increased random blood sugar. RECOMMENDATIONS AND DISCUSSION: Recommend to continue current medications. Continue to monitoring, symptomatic treatment. Otherwise, at this time, I recommend bronchodilators. Empiric antibiotics. Steroids and continue to monitor. Guarded prognosis because of multiple complex medical issues. Further recommendations to follow. MMODL / IJN: [id number] / JENNIFER
[2018-02-13] MEDS: IPRATROPIUM-ALBUTEROL 3 ML NEB INHALATION SCH ×7 (00:54→23:50)
[2018-02-13 05:51] LABS: Glucose,Whole Blood 137 mg/dL (75-99)
[2018-02-13] MEDS: methylPREDNISolone SOD SUCCI 125 MG/2 ML VIAL IV SCH ×3 (06:22→17:14)
[2018-02-13] MEDS: INSULIN ASPART 100 UNIT/ML 1 ML 10 ML VIAL SQ SCH ×4 (06:23→21:25)
[2018-02-13 06:37] LABS: Basophils % (A) 0 %; Eosinophils % (A) 0 %; HCT 43.7 % (39.0-53.0); HGB 13.6 gm/dL (13.0-17.5); Lymphocytes # (A) 1.1 k/uL (1.0-4.8); Lymphocytes % (A) 10 %; MCH 28.5 pg (25.0-35.0); MCHC 31.2 g/dL (31.0-37.0); MCV 91.5 fL (80.0-100.0); Mean Platelet Volume 6.8; Monocytes # (A) 0.5 k/uL (0-1.0); Monocytes % (A) 4 %; Neutrophils # (A) 9.3 k/uL (1.3-7.7); Neutrophils % (A) 85 %; Platelet Count 205 k/uL (150-450); RBC 4.78 m/uL (4.30-5.90); RDW 14.2 % (11.5-15.5); WBC 10.9 k/uL (3.8-10.6)
[2018-02-13 06:45] LABS: Anion Gap 2 mmol/L; Blood Urea Nitrogen 27 mg/dL (9-20); Calcium 9.1 mg/dL (8.4-10.2); Carbon Dioxide 40 mmol/L (22-30); Chloride 97 mmol/L (98-107); Glucose 131 mg/dL (74-99); Sodium 139 mmol/L (137-145)
[2018-02-13] MEDS: FORMOTEROL FUMARATE 20 MCG/2 ML NEBU INHALATION SCH ×2 (07:58→19:45)
[2018-02-13] MEDS: BUDESONIDE 1 MG/2 ML NEBU INHALATION SCH ×2 (07:58→19:45)
[2018-02-13] MEDS: cloNIDine HCL 0.2 MG TAB PO SCH ×3 (08:08→23:03)
[2018-02-13] MEDS: ASPIRIN 325 MG TAB PO SCH (08:08)
[2018-02-13] MEDS: FAMOTIDINE 20 MG TAB PO SCH ×2 (08:08→20:18)
[2018-02-13] MEDS: FUROSEMIDE 10 MG/ML 4 ML VIAL IV SCH ×2 (08:09→20:18)
[2018-02-13] MEDS: HEPARIN SODIUM,PORCINE 5,000 UNIT/ML 1 ML VIAL SQ SCH ×3 (08:09→23:03)
[2018-02-13] MEDS: METOPROLOL TARTRATE 25 MG TAB PO SCH ×2 (08:09→20:18)
[2018-02-13] MEDS: LOSARTAN 50 MG TAB PO SCH (08:09)
[2018-02-13] MEDS: ISOSORBIDE MONONITRATE ER 60 MG TAB.ER.24H PO SCH (08:09)
[2018-02-13] MEDS: ATORVASTATIN 40 MG TAB PO SCH (08:10)
[2018-02-13] MEDS: LORATADINE 10 MG TAB PO SCH (08:10)
[2018-02-13] MEDS: CHOLECALCIFEROL 1,000 UNIT TAB PO SCH (08:10)
[2018-02-13] MEDS: POTASSIUM CHLORIDE ER 20 MEQ TAB.ER PO SCH (08:10)
[2018-02-13] MEDS: CLOPIDOGREL 75 MG TAB PO SCH (08:10)
[2018-02-13] MEDS: oxyCODONE-APAP 7.5-325MG 1 EACH TAB PO PRN ×4 (08:15→20:18)
[2018-02-13] MEDS: DOCUSATE 100 MG CAP PO PRN ×2 (08:15→20:17)
[2018-02-13] MEDS: NYSTATIN 100,000 UNIT/GM POWD 15 GM TOPICAL SCH ×2 (08:22→20:19)
[2018-02-13] MEDS: CLOTRIMAZOLE 1% CREAM 15 GM TUBE TOPICAL SCH ×2 (08:22→20:19)
[2018-02-13] MEDS: MORPHINE SULFATE 4 MG/ML SYRINGE IV PRN (10:06)
[2018-02-13 11:51] LABS: Glucose,Whole Blood 119 mg/dL (75-99)
--- NOTE | 2018-02-13 11:58 | P.PN ---
Subjective Progress Note Date: 02/13/18 Principal diagnosis: Acute on chronic hypoxic respiratory failure secondary to COPD exacerbation, morbid obesity, obesity, hypoventilation syndrome. This is a very pleasant 62-year-old gentleman who follows with Dr. Yohan Anna as his primary care provider. He has a history of morbid obesity with obesity/hypoventilation syndrome/obstructive sleep apnea, cor pulmonale, coronary artery disease with previous stent placements 4, AICD placement secondary to ischemic cardio myopathy in 2012, diastolic congestive heart failure, osteoarthritis, CVA in 2004, chronic back pain secondary to degenerative disc disease, spinal cord stenosis. The patient also has chronic obstructive pulmonary disease and chronic and ongoing tobacco dependence. He is on Breo and DuoNeb in the outpatient setting. He presented here to the emergency room yesterday after a 2-3 day progressive worsening shortness of breath and increased swelling of his lower extremities. His chest x-ray shows no active cardiopulmonary disease. White count 9.5. Hemoglobin 14.6. Creatinine 0.85. ProBNP is 243. He has been utilizing the BiPAP 12/5 and 40% FiO2. He is seen today in consultation on the selective is having a hard time bringing up phlegm. On 02/12/2018 patient seen in follow-up. Lung sounds reveal diffuse wheezes, and rhonchi, patient remains on BiPAP, he is tolerating well, he states he is more comfortable on that right now. awake and alert in no acute distress. Still with bronchospasm and wheezing. He is able to bring up some sputum. Afebrile, vital signs are stable. His chest x-ray has been reviewed, shows mild cardiomegaly. Acute pulmonary process. Continue current medical treatment , continue nebulized bronchodilators, diuretics, antibiotics and steroids. Reevaluated today on 02/13/2018, feeling better, breathing easier, patient is responding well to bronchodilators, he has BiPAP available at bedside, and he is using it at night when he sleeps. Patient is known to have history of obstructive sleep apnea and he has his own BiPAP at home. At any rate patient is breathing easier, he is also known to have history of cardiomyopathy and LV dysfunction, previous AICD placement which was placed for ischemic cardiomyopathy. He had a previous CVA in 2004. Labs from today were reviewed, his CBC is relatively normal, bicarb is 40 which implied that the patient had chronic hypercapnic respiratory failure for a long period of time with metabolic compensation. Objective - Vital Signs Vital signs: Vital Signs Temp 97.2 F L 02/13/18 08:00 Pulse 72 02/13/18 11:35 Resp 18 02/13/18 08:00 BP 156/74 02/13/18 08:00 Pulse Ox 97 02/13/18 08:00 Intake & Output 02/12/18 02/13/18 02/13/18 18:59 06:59 18:59 Intake Total 720 700 240 Output Total 600 1500 Balance 120 -800 240 Intake: Oral 720 700 240 Output: Urine 300 1500 Stool 300 Other: Voiding Method Urinal Urinal Urinal # Voids 1,000 200 # Bowel Movements 0 0 - Exam - Exam - Constitutional General appearance: morbidly obese - EENT Eyes: EOMI, PERRLA ENT: hearing grossly normal Ears: bilateral: normal - Neck Neck: normal ROM Carotids: bilateral: upstroke normal Thyroid: bilateral: normal size - Respiratory Respiratory: bilateral: wheezing, prolonged expiration - Cardiovascular Rhythm: regular Heart sounds: normal: S1, S2 - Gastrointestinal General gastrointestinal: normal bowel sounds - Integumentary Integumentary: normal turgor - Neurologic Neurologic: CNII-XII intact - Musculoskeletal Musculoskeletal: generalized weakness - Psychiatric Psychiatric: A&O x's 3, appropriate affect, intact judgment & insight - Labs CBC & Chem 7: 02/13/18 05:53 02/13/18 05:53 Labs: Abnormal Lab Results - Last 24 Hours (Table) 02/12/18 02/12/18 02/13/18 Range/Units 16:33 21:18 05:49 WBC (3.8-10.6) k/uL Neutrophils # (1.3-7.7) k/uL Chloride (98-107) mmol/L Carbon Dioxide (22-30) mmol/L BUN (9-20) mg/dL Glucose (74-99) mg/dL POC Glucose (mg/dL) 161 H 168 H 137 H (75-99) mg/dL 02/13/18 02/13/18 02/13/18 Range/Units 05:53 05:53 11:30 WBC 10.9 H (3.8-10.6) k/uL Neutrophils # 9.3 H (1.3-7.7) k/uL Chloride 97 L (98-107) mmol/L Carbon Dioxide 40 H (22-30) mmol/L BUN 27 H (9-20) mg/dL Glucose 131 H (74-99) mg/dL POC Glucose (mg/dL) 119 H (75-99) mg/dL Microbiology - Last 24 Hours (Table) 02/09/18 20:45 Blood Culture - Preliminary Blood No Growth after 72 hours 02/12/18 04:13 Gram Stain - Preliminary Sputum 02/12/18 00:02 Urine Culture - Preliminary Urine,Voided Assessment and Plan Assessment: Plan: #1 Acute on chronic hypoxic respiratory failure secondary to an acute exacerbation of chronic obstructive pulmonary disease. Currently utilizing BiPAP 14/5 at 40% FiO2. #2 Acute on chronic hypercapnic respiratory failure secondary to above. #3 Morbid obesity with obesity/hypoventilation syndrome/obstructive sleep apnea. Utilizing CPAP in the outpatient setting. #4 Chronic and ongoing tobacco dependence. #5 Coronary artery disease with previous stent placement 4. #6 Ischemic cardiomyopathy status post AICD placement in 2012. #7 History of CVA 2004. #8 Hypertension. #9 Hyperlipidemia. #10 Chronic low back pain. #11 Diverticular disease. Plan: Continue present supportive care measures, including bronchodilators, steroids, diuretics, BiPAP as needed, antibiotics including Rocephin and Zithromax, we will continue to follow closely, not quite ready for discharge planning at this point. Time with Patient: Less than 30
[2018-02-13] MEDS: AZITHROMYCIN 500 MG TAB PO SCH (16:04)
[2018-02-13] MEDS: cefTRIAXone 2,000 MG in SODIUM CHLORIDE 0.9% 100 ML IVPB SCH (16:04)
[2018-02-13 16:49] LABS: Glucose,Whole Blood 225 mg/dL (75-99)
--- NOTE | 2018-02-13 20:18 | PN ---
PROGRESS NOTE DATE OF SERVICE: 02/13/2018 This 62-year-old gentleman who was admitted with COPD exacerbation and CHF exacerbation is being closely monitored at this time. The patient has significant incessant cough also. Dr. Rey is following the patient as well. PT/OT is evaluating the patient for possible ECF rehab. No chest pain. No palpitations. No fever. On exam, alert and oriented x3. Pulse is 69, blood pressure 133/91, respiration 22, temperature 97.2, pulse ox 94% on 3 L. HEENT: Conjunctivae normal. NECK: No jugular venous distention. CARDIOVASCULAR SYSTEM: S1, S2 muffled. RESPIRATORY SYSTEM: Breath sounds diminished at the bases. Scattered rhonchi and crackles. ABDOMEN: Soft, non-tender, obese. LEGS: No edema. NERVOUS SYSTEM: No focal deficit. LABS: WBC 10.2, hemoglobin 13.6. Glucose 137. ASSESSMENT: 1. Shortness of breath with possible chronic obstructive pulmonary disease, acute exacerbation, as well as acute purulent tracheobronchitis. 2. Congestive heart failure, acute exacerbation, with acute on chronic diastolic dysfunction. 3. Obesity hypoventilation syndrome. 4. Gait dysfunction. 5. Acute hypoxic respiratory failure, on BiPAP. 6. Bilateral leg swelling. 7. Hypertension. 8. Hyperlipidemia. 9. History of coronary artery disease and stent. 10.History of automated implantable cardioverter defibrillator. 11.History of chronic low back pain. 12.History of chronic hypoxic respiratory failure, on home oxygen. 13.Morbid obesity; body mass index 51.1. 14.Increased random blood sugar. RECOMMENDATIONS AND DISCUSSION: I recommend to continue current medication, continue symptomatic treatment. Otherwise, continue with the diuretics. Will taper the steroids. Continue with the bronchodilators. I would also recommend PT/OT evaluation and possible ECF rehab. The prognosis is guarded because of the multiple complex medical issues. Further recommendations to follow. MMODL / IJN: [id number] /
[2018-02-13 21:17] LABS: Glucose,Whole Blood 195 mg/dL (75-99)
[2018-02-13] MEDS: methylPREDNISolone SOD SUCCI 40 MG/ML 1 ML VIAL IV SCH (23:05)
[2018-02-14] MEDS: oxyCODONE-APAP 7.5-325MG 1 EACH TAB PO PRN ×5 (00:13→20:27)
[2018-02-14] MEDS: IPRATROPIUM-ALBUTEROL 3 ML NEB INHALATION SCH ×6 (03:34→23:53)
[2018-02-14 05:44] LABS: Glucose,Whole Blood 150 mg/dL (75-99)
[2018-02-14 05:49] LABS: Basophils % (A) 0 %; Eosinophils % (A) 0 %; HCT 43.6 % (39.0-53.0); HGB 13.9 gm/dL (13.0-17.5); Lymphocytes # (A) 1.1 k/uL (1.0-4.8); Lymphocytes % (A) 10 %; MCH 28.8 pg (25.0-35.0); MCHC 31.9 g/dL (31.0-37.0); MCV 90.1 fL (80.0-100.0); Mean Platelet Volume 7.4; Monocytes # (A) 0.6 k/uL (0-1.0); Monocytes % (A) 5 %; Neutrophils # (A) 9.4 k/uL (1.3-7.7); Neutrophils % (A) 84 %; Platelet Count 205 k/uL (150-450); RBC 4.84 m/uL (4.30-5.90); RDW 14.1 % (11.5-15.5); WBC 11.2 k/uL (3.8-10.6)
[2018-02-14 05:59] LABS: Anion Gap 7 mmol/L; Blood Urea Nitrogen 30 mg/dL (9-20); Calcium 9.1 mg/dL (8.4-10.2); Carbon Dioxide 36 mmol/L (22-30); Chloride 96 mmol/L (98-107); Glucose 170 mg/dL (74-99); Potassium 4.9 mmol/L (3.5-5.1); Sodium 139 mmol/L (137-145)
[2018-02-14] MEDS: INSULIN ASPART 100 UNIT/ML 1 ML 10 ML VIAL SQ SCH ×4 (06:30→21:50)
[2018-02-14] MEDS: BUDESONIDE 1 MG/2 ML NEBU INHALATION SCH ×2 (07:16→20:48)
[2018-02-14] MEDS: FORMOTEROL FUMARATE 20 MCG/2 ML NEBU INHALATION SCH ×2 (07:16→20:47)
[2018-02-14] MEDS: methylPREDNISolone SOD SUCCI 40 MG/ML 1 ML VIAL IV SCH ×3 (07:54→23:38)
[2018-02-14] MEDS: FUROSEMIDE 10 MG/ML 4 ML VIAL IV SCH ×2 (07:54→20:28)
[2018-02-14] MEDS: POTASSIUM CHLORIDE ER 20 MEQ TAB.ER PO SCH (07:54)
[2018-02-14] MEDS: HEPARIN SODIUM,PORCINE 5,000 UNIT/ML 1 ML VIAL SQ SCH ×3 (07:54→23:25)
[2018-02-14] MEDS: ISOSORBIDE MONONITRATE ER 60 MG TAB.ER.24H PO SCH (07:54)
[2018-02-14] MEDS: LORATADINE 10 MG TAB PO SCH (07:54)
[2018-02-14] MEDS: METOPROLOL TARTRATE 25 MG TAB PO SCH ×2 (07:55→20:27)
[2018-02-14] MEDS: MORPHINE SULFATE 4 MG/ML SYRINGE IV PRN ×2 (07:55→23:43)
[2018-02-14] MEDS: cloNIDine HCL 0.2 MG TAB PO SCH ×3 (07:55→23:25)
[2018-02-14] MEDS: CHOLECALCIFEROL 1,000 UNIT TAB PO SCH (07:55)
[2018-02-14] MEDS: CLOPIDOGREL 75 MG TAB PO SCH (07:55)
[2018-02-14] MEDS: FAMOTIDINE 20 MG TAB PO SCH ×2 (07:55→20:28)
[2018-02-14] MEDS: LOSARTAN 50 MG TAB PO SCH (07:55)
[2018-02-14] MEDS: ASPIRIN 325 MG TAB PO SCH (07:55)
[2018-02-14] MEDS: ATORVASTATIN 40 MG TAB PO SCH (07:55)
[2018-02-14] MEDS: NYSTATIN 100,000 UNIT/GM POWD 15 GM TOPICAL SCH ×2 (07:57→20:33)
[2018-02-14] MEDS: CLOTRIMAZOLE 1% CREAM 15 GM TUBE TOPICAL SCH ×2 (07:58→20:33)
[2018-02-14] MEDS ORDERED: SENNOSIDES 8.6 MG TAB PO PRN (10:56)
[2018-02-14] MEDS ORDERED: POLYETHYLENE GLYCOL 3350 17 GM POWD.PACK PO STA (10:57)
[2018-02-14] MEDS: DOCUSATE 100 MG CAP PO PRN ×2 (11:18→20:27)
[2018-02-14 11:34] LABS: Glucose,Whole Blood 119 mg/dL (75-99)
--- NOTE | 2018-02-14 11:39 | P.PN ---
Subjective Progress Note Date: 02/14/18 Principal diagnosis: Acute on chronic hypoxic respiratory failure secondary to COPD exacerbation Patient is a 62-year-old male with a known history of morbid obesity, obesity hypoventilation syndrome, obstructive sleep apnea, cor pulmonale, coronary artery disease with history of stent placement 4, AICD placement secondary to ischemic cardiomyopathy in 2012, Diastolic heart failure, Osteoarthritis, CVA in 2004, chronic back pain secondary to degenerative disc disease, spinal cord stenosis was admitted to the hospital with worsening shortness of breath progressively over the past 2-3 days prior to admission. Chest x-ray showed no acute cardiopulmonary process on admission. 02/14/2018. Patient is still having shortness of breath at baseline and at rest. Patient says that his breathing is slightly eased up and was having yellowish sputum production yesterday. No fever no chills. Patient still on BiPAP patient. Patient does use CPAP at home. Patient is being continued on steroids breathing treatments and antibiotics in the form of ceftriaxone and azithromycin. No complaints of chest pain. No nausea vomiting or abdominal pain. Patient does have constipation. Patient is also on chronic narcotic pain medications at home. All other review of systems negative except the above. Current medications reviewed. Active Medications Generic Name Dose Route Start Last Admin Trade Name Freq PRN Reason Stop Dose Admin Acetaminophen 650 mg 02/09/18 21:57 Tylenol Tab PO Q6HR PRN Mild Pain or Fever > 100.5 Albuterol Sulfate 2.5 mg 02/09/18 21:59 Ventolin Nebulized INHALATION RT-Q2H PRN Shortness Of Breath Or Wheezing Albuterol/Ipratropium 3 ml 02/10/18 16:00 02/14/18 10:50 Duoneb 0.5 Mg-3 Mg/3 Ml Soln INHALATION 3 ml RT-Q4H KARINA Administration Aspirin 325 mg 02/10/18 09:00 02/14/18 07:55 Aspirin PO 325 mg DAILY KARINA Administration Atorvastatin Calcium 40 mg 02/10/18 09:00 02/14/18 07:55 Lipitor PO 40 mg DAILY KARINA Administration Azithromycin 500 mg 02/13/18 16:00 02/13/18 16:04 Zithromax PO 500 mg DAILY@1600 KARINA Administration Budesonide 1 mg 02/10/18 20:00 02/14/18 07:16 Pulmicort INHALATION 1 mg RT-BID KARINA Administration Cholecalciferol 1,000 unit 02/11/18 09:00 02/14/18 07:55 Vitamin D3 PO 1,000 unit DAILY KARINA Administration Clonidine 0.2 mg 02/10/18 00:00 02/14/18 07:55 Catapres PO 0.2 mg Q8HR KARINA Administration Clopidogrel Bisulfate 75 mg 02/10/18 09:00 02/14/18 07:55 Plavix PO 75 mg DAILY KARINA Administration Clotrimazole 1 applic 02/11/18 12:15 02/14/18 07:58 Lotrimin Cream TOPICAL 1 applic BID KARINA Administration Docusate Sodium 100 mg 02/13/18 04:09 02/14/18 11:18 Colace PO 100 mg BID PRN Administration Constipation Famotidine 20 mg 02/10/18 09:00 02/14/18 07:55 Pepcid PO 20 mg BID KARINA Administration Formoterol Fumarate 20 mcg 02/10/18 20:00 02/14/18 07:16 Perforomist INHALATION 20 mcg RT-BID KARINA Administration Furosemide 40 mg 02/10/18 21:00 02/14/18 07:54 Lasix IV 40 mg Q12HR KARINA Administration Heparin Sodium (Porcine) 5,000 unit 02/10/18 16:00 02/14/18 07:54 Heparin SQ 5,000 unit Q8HR KARINA Administration Ceftriaxone Sodium 2,000 mg/ 100 mls @ 100 mls/hr 02/11/18 17:00 02/13/18 16: 04 Sodium Chloride IVPB 100 mls/hr Q24H KARINA Administration Insulin Aspart 0 unit 02/10/18 07:30 02/14/18 06:30 Novolog SQ 2 unit ACHS KARINA Administration Protocol Isosorbide Mononitrate 60 mg 02/10/18 09:00 02/14/18 07:54 Imdur PO 60 mg DAILY KARINA Administration Loratadine 10 mg 02/11/18 09:00 02/14/18 07:54 Claritin PO 10 mg DAILY KARINA Administration Losartan Potassium 50 mg 02/10/18 09:00 02/14/18 07:55 Cozaar PO 50 mg DAILY KARINA Administration Methylprednisolone Sodium Succinate 40 mg 02/14/18 00:00 02/14/18 07:54 Solu-Medrol IV 40 mg Q8HR KARINA Administration Metoprolol Tartrate 25 mg 02/10/18 09:00 02/14/18 07:55 Lopressor PO 25 mg BID KARINA Administration Morphine Sulfate 4 mg 02/09/18 21:57 02/14/18 07:55 Morphine Sulfate (Inj) IV 4 mg Q4HR PRN Administration Severe Pain Naloxone HCl 0.2 mg 02/09/18 21:57 Narcan IV Q2M PRN Opioid Reversal Nystatin 1 applic 02/10/18 21:00 02/14/18 07:57 Mycostatin Powder TOPICAL 1 applic BID KARINA Administration Ondansetron HCl 4 mg 02/09/18 21:57 Zofran IVP Q8HR PRN Nausea And Vomiting Oxycodone/Acetaminophen 1 each 02/10/18 14:37 02/14/18 11:18 Percocet 7.5-325 PO 1 each Q4HR PRN Administration MODERATE Pain Potassium Chloride 20 meq 02/11/18 09:00 02/14/18 07:54 K-Dur 20 PO 20 meq DAILY KARINA Administration Senna 8.6 mg 02/14/18 10:56 Senokot PO BID PRN Constipation Objective - Vital Signs Vital signs: Vital Signs Temp 97.8 F 02/14/18 08:00 Pulse 62 02/14/18 11:03 Resp 18 02/14/18 08:00 BP 134/59 02/14/18 08:00 Pulse Ox 94 L 02/14/18 08:00 Intake & Output 02/13/18 02/14/18 02/14/18 18:59 06:59 18:59 Intake Total 716 1200 360 Output Total 400 300 900 Balance 316 900 -540 Weight 171.5 kg Intake: Oral 716 1200 360 Output: Urine 400 300 900 Other: Voiding Method Urinal Urinal # Voids 4 1 # Bowel Movements 0 0 - Exam PHYSICAL EXAMINATION: Patient is lying in the bed comfortably, no acute distress, awake alert and oriented. Morbidly obese. HEENT: Normocephalic. Neck is supple. Pupils reactive. Nostrils clear. Oral cavity is moist. Ears reveal no drainage. Neck reveals no JVD, carotid bruits, or thyromegaly. CHEST EXAMINATION: Trachea is central. Symmetrical expansion. Bilateral diffuse rhonchi and crackles and wheezing. CARDIAC: Normal S1, S2 with no gallops. No murmurs ABDOMEN: Soft. Obese. Bowel sounds normal. No organomegaly. No abdominal bruits. Extremities: 2+ edema. No clubbing or cyanosis Neurologically awake, alert, oriented x3 with well-coordinated movements. No focal deficits noted Skin: No rash or skin lesions. Psychiatric: Coperative. Nonsuicidal Musculoskeletal: No joint swelling or deformity. Normal range of motion. - Labs CBC & Chem 7: 02/14/18 05:30 02/14/18 05:30 Labs: Abnormal Lab Results - Last 24 Hours (Table) 02/13/18 02/13/18 02/13/18 Range/Units 11:30 16:30 21:05 WBC (3.8-10.6) k/uL Neutrophils # (1.3-7.7) k/uL Chloride (98-107) mmol/L Carbon Dioxide (22-30) mmol/L BUN (9-20) mg/dL Glucose (74-99) mg/dL POC Glucose (mg/dL) 119 H 225 H 195 H (75-99) mg/dL 02/14/18 02/14/18 02/14/18 Range/Units 05:30 05:30 05:42 WBC 11.2 H (3.8-10.6) k/uL Neutrophils # 9.4 H (1.3-7.7) k/uL Chloride 96 L (98-107) mmol/L Carbon Dioxide 36 H (22-30) mmol/L BUN 30 H (9-20) mg/dL Glucose 170 H (74-99) mg/dL POC Glucose (mg/dL) 150 H (75-99) mg/dL Microbiology - Last 24 Hours (Table) 02/12/18 04:13 Gram Stain - Final Sputum Sputum Culture - Final 02/09/18 20:45 Blood Culture - Preliminary Blood No Growth after 96 hours 02/12/18 00:02 Urine Culture - Final Urine,Voided Assessment and Plan Assessment: Acute on chronic hypoxic respiratory failure secondary to COPD exacerbation Acute COPD exacerbation requiring BiPAP now Morbid obesity, obesity hypoventilation syndrome and obstructive sleep apnea Ongoing nicotine dependence Coronary artery disease with history of stent placement 4 Ischemic cardiopathy status post AICD placement in 2012 History of CVA in 2004 Hypertension Hyperlipidemia Chronic back pain and spinal stenosis Diverticular disease Chronic hypoxic respiratory failure on home oxygen DVT prophylaxis with heparin subcu Plan: Patient will be continued on antibiotics, breathing treatments and steroids and BiPAP as needed. Currently the current management and follow closely. PTOT consult and possible rehab transfer once medically stable. Prognosis is guarded with multiple medical problems and comorbid conditions. Further recommendations based on the clinical course. Time with Patient: Greater than 30
--- NOTE | 2018-02-14 12:39 | P.PN ---
Subjective Progress Note Date: 02/14/18 Principal diagnosis: Acute on chronic hypoxic respiratory failure secondary to an acute exacerbation of chronic obstructive pulmonary disease. This is a very pleasant 62-year-old gentleman who follows with Dr. Yohan Anna as his primary care provider. He has a history of morbid obesity with obesity/hypoventilation syndrome/obstructive sleep apnea, cor pulmonale, coronary artery disease with previous stent placements 4, AICD placement secondary to ischemic cardio myopathy in 2012, diastolic congestive heart failure, osteoarthritis, CVA in 2004, chronic back pain secondary to degenerative disc disease, spinal cord stenosis. The patient also has chronic obstructive pulmonary disease and chronic and ongoing tobacco dependence. He is on Breo and DuoNeb in the outpatient setting. He presented here to the emergency room yesterday after a 2-3 day progressive worsening shortness of breath and increased swelling of his lower extremities. His chest x-ray shows no active cardiopulmonary disease. White count 9.5. Hemoglobin 14.6. Creatinine 0.85. ProBNP is 243. He has been utilizing the BiPAP 12/5 and 40% FiO2. He is seen today in consultation on the selective care unit. He is awake and alert in no acute distress. He is still dyspneic with minimal exertion. Still with bronchospasm and wheezing. He has been initiated on bronchodilators and IV Solu-Medrol. On 02/12/2018 patient seen in follow-up. Lung sounds reveal diffuse wheezes, and rhonchi, patient remains on BiPAP, he is tolerating well, he states he is more comfortable on that right now. awake and alert in no acute distress. Still with bronchospasm and wheezing. He is able to bring up some sputum. Afebrile, vital signs are stable. His chest x-ray has been reviewed, shows mild cardiomegaly. Acute pulmonary process. Continue current medical treatment , continue nebulized bronchodilators, diuretics, antibiotics and steroids. Reevaluated today on 02/13/2018, feeling better, breathing easier, patient is responding well to bronchodilators, he has BiPAP available at bedside, and he is using it at night when he sleeps. Patient is known to have history of obstructive sleep apnea and he has his own BiPAP at home. At any rate patient is breathing easier, he is also known to have history of cardiomyopathy and LV dysfunction, previous AICD placement which was placed for ischemic cardiomyopathy. He had a previous CVA in 2004. Labs from today were reviewed, his CBC is relatively normal, bicarb is 40 which implied that the patient had chronic hypercapnic respiratory failure for a long period of time with metabolic compensation. The patient is seen again today secondary 2017 in follow-up on the selective care unit. He is awake and alert in no acute distress. He is breathing a bit easier today as compared to yesterday. Still utilizing the BiPAP in the evenings and during the day while resting. Otherwise he is maintaining O2 saturations in the mid 90s on 3 L/m per nasal cannula. He is currently afebrile. Hemodynamically stable. White count 11.2. Hemoglobin 13.9. Creatinine 0.92. Objective - Vital Signs Vital signs: Vital Signs Temp 97.8 F 02/14/18 08:00 Pulse 62 02/14/18 11:03 Resp 18 02/14/18 08:00 BP 134/59 02/14/18 08:00 Pulse Ox 94 L 02/14/18 08:00 Intake & Output 02/13/18 02/14/18 02/14/18 18:59 06:59 18:59 Intake Total 716 1200 360 Output Total 400 300 900 Balance 316 900 -540 Weight 171.5 kg Intake: Oral 716 1200 360 Output: Urine 400 300 900 Other: Voiding Method Urinal Urinal # Voids 4 1 # Bowel Movements 0 0 - Exam - Constitutional General appearance: morbidly obese - EENT Eyes: EOMI, PERRLA ENT: hearing grossly normal Ears: bilateral: normal - Neck Neck: normal ROM Carotids: bilateral: upstroke normal Thyroid: bilateral: normal size - Respiratory Respiratory: bilateral: wheezing, prolonged expiration - Cardiovascular Rhythm: regular Heart sounds: normal: S1, S2 - Gastrointestinal General gastrointestinal: normal bowel sounds - Integumentary Integumentary: normal turgor - Neurologic Neurologic: CNII-XII intact - Musculoskeletal Musculoskeletal: generalized weakness - Psychiatric Psychiatric: A&O x's 3, appropriate affect, intact judgment & insight - Labs CBC & Chem 7: 02/14/18 05:30 02/14/18 05:30 Labs: Abnormal Lab Results - Last 24 Hours (Table) 02/13/18 02/13/18 02/14/18 Range/Units 16:30 21:05 05:30 WBC 11.2 H (3.8-10.6) k/uL Neutrophils # 9.4 H (1.3-7.7) k/uL Chloride (98-107) mmol/L Carbon Dioxide (22-30) mmol/L BUN (9-20) mg/dL Glucose (74-99) mg/dL POC Glucose (mg/dL) 225 H 195 H (75-99) mg/dL 02/14/18 02/14/18 02/14/18 Range/Units 05:30 05:42 11:32 WBC (3.8-10.6) k/uL Neutrophils # (1.3-7.7) k/uL Chloride 96 L (98-107) mmol/L Carbon Dioxide 36 H (22-30) mmol/L BUN 30 H (9-20) mg/dL Glucose 170 H (74-99) mg/dL POC Glucose (mg/dL) 150 H 119 H (75-99) mg/dL Microbiology - Last 24 Hours (Table) 02/12/18 04:13 Gram Stain - Final Sputum Sputum Culture - Final 02/09/18 20:45 Blood Culture - Preliminary Blood No Growth after 96 hours 02/12/18 00:02 Urine Culture - Final Urine,Voided Assessment and Plan Assessment: Impression: #1 Acute on chronic hypoxic respiratory failure secondary to an acute exacerbation of chronic obstructive pulmonary disease. Currently utilizing BiPAP 12/5 at 40% FiO2. #2 Acute on chronic hypercapnic respiratory failure secondary to above. #3 Morbid obesity with obesity/hypoventilation syndrome/obstructive sleep apnea. Utilizing CPAP in the outpatient setting. #4 Chronic and ongoing tobacco dependence. #5 Coronary artery disease with previous stent placement 4. #6 Ischemic cardiomyopathy status post AICD placement in 2012. #7 History of CVA 2004. #8 Hypertension. #9 Hyperlipidemia. #10 Chronic low back pain. #11 Diverticular disease. Plan: The patient was seen and evaluated by Dr. Rey. The patient is improving. We 'll continue with the current treatment plan. We'll continue to follow. I, the cosigning physician, performed a history & physical examination of the patient. Lungs sounds faint end expiratory wheeze. Maintaining good O2 saturations in the 90s on BiPAP at 40% FiO2 alternating with 3 L/m per nasal cannula. I discussed the assessment and plan of care with my nurse practitioner , Piper Albarado. I attest to the above consultation as dictated by her.
[2018-02-14] MEDS: AZITHROMYCIN 500 MG TAB PO SCH (15:28)
[2018-02-14 16:35] LABS: Glucose,Whole Blood 149 mg/dL (75-99)
[2018-02-14] MEDS: cefTRIAXone 2,000 MG in SODIUM CHLORIDE 0.9% 100 ML IVPB SCH (17:24)
[2018-02-14 21:26] LABS: Glucose,Whole Blood 156 mg/dL (75-99)
[2018-02-15] MEDS: IPRATROPIUM-ALBUTEROL 3 ML NEB INHALATION SCH ×5 (03:51→21:12)
[2018-02-15] MEDS: oxyCODONE-APAP 7.5-325MG 1 EACH TAB PO PRN ×5 (04:22→20:21)
[2018-02-15 06:33] LABS: Glucose,Whole Blood 173 mg/dL (75-99)
[2018-02-15] MEDS: INSULIN ASPART 100 UNIT/ML 1 ML 10 ML VIAL SQ SCH ×4 (06:46→21:34)
[2018-02-15] MEDS: HEPARIN SODIUM,PORCINE 5,000 UNIT/ML 1 ML VIAL SQ SCH ×3 (08:04→23:19)
[2018-02-15] MEDS: methylPREDNISolone SOD SUCCI 40 MG/ML 1 ML VIAL IV SCH ×3 (08:05→23:19)
[2018-02-15] MEDS: cloNIDine HCL 0.2 MG TAB PO SCH ×3 (08:05→23:19)
[2018-02-15] MEDS: METOPROLOL TARTRATE 25 MG TAB PO SCH ×2 (08:06→20:15)
[2018-02-15] MEDS: ASPIRIN 325 MG TAB PO SCH (08:06)
[2018-02-15] MEDS: FAMOTIDINE 20 MG TAB PO SCH ×2 (08:06→20:15)
[2018-02-15] MEDS: ATORVASTATIN 40 MG TAB PO SCH (08:06)
[2018-02-15] MEDS: CHOLECALCIFEROL 1,000 UNIT TAB PO SCH (08:07)
[2018-02-15] MEDS: LORATADINE 10 MG TAB PO SCH (08:07)
[2018-02-15] MEDS: FUROSEMIDE 10 MG/ML 4 ML VIAL IV SCH ×2 (08:07→20:24)
[2018-02-15] MEDS: CLOPIDOGREL 75 MG TAB PO SCH (08:07)
[2018-02-15] MEDS: POTASSIUM CHLORIDE ER 20 MEQ TAB.ER PO SCH (08:08)
[2018-02-15] MEDS: LOSARTAN 50 MG TAB PO SCH (08:08)
[2018-02-15] MEDS: BUDESONIDE 1 MG/2 ML NEBU INHALATION SCH ×2 (08:25→21:14)
[2018-02-15] MEDS: FORMOTEROL FUMARATE 20 MCG/2 ML NEBU INHALATION SCH ×2 (08:25→21:14)
[2018-02-15 08:30] LABS: Basophils % (A) 0 %; Eosinophils % (A) 0 %; HCT 45.6 % (39.0-53.0); HGB 14.7 gm/dL (13.0-17.5); Lymphocytes # (A) 0.9 k/uL (1.0-4.8); Lymphocytes % (A) 10 %; MCH 29.2 pg (25.0-35.0); MCHC 32.3 g/dL (31.0-37.0); MCV 90.6 fL (80.0-100.0); Mean Platelet Volume 7.4; Monocytes # (A) 0.5 k/uL (0-1.0); Monocytes % (A) 6 %; Neutrophils % (A) 83 %; Platelet Count 208 k/uL (150-450); RBC 5.04 m/uL (4.30-5.90); WBC 9.5 k/uL (3.8-10.6)
[2018-02-15 08:48] LABS: Anion Gap 6 mmol/L; Blood Urea Nitrogen 30 mg/dL (9-20); Calcium 9.1 mg/dL (8.4-10.2); Carbon Dioxide 36 mmol/L (22-30); Chloride 95 mmol/L (98-107); Glucose 168 mg/dL (74-99); Potassium 5.1 mmol/L (3.5-5.1); Sodium 137 mmol/L (137-145)
[2018-02-15] MEDS: NYSTATIN 100,000 UNIT/GM POWD 15 GM TOPICAL SCH ×2 (11:15→20:16)
[2018-02-15] MEDS: CLOTRIMAZOLE 1% CREAM 15 GM TUBE TOPICAL SCH ×2 (11:15→22:25)
[2018-02-15 11:46] LABS: Glucose,Whole Blood 81 mg/dL (75-99)
--- NOTE | 2018-02-15 11:57 | P.PN ---
Subjective Progress Note Date: 02/15/18 Principal diagnosis: Acute on chronic hypoxic respiratory failure secondary to an acute exacerbation of chronic obstructive pulmonary disease. This is a very pleasant 62-year-old gentleman who follows with Dr. Yohan Anna as his primary care provider. He has a history of morbid obesity with obesity/hypoventilation syndrome/obstructive sleep apnea, cor pulmonale, coronary artery disease with previous stent placements 4, AICD placement secondary to ischemic cardio myopathy in 2012, diastolic congestive heart failure, osteoarthritis, CVA in 2004, chronic back pain secondary to degenerative disc disease, spinal cord stenosis. The patient also has chronic obstructive pulmonary disease and chronic and ongoing tobacco dependence. He is on Breo and DuoNeb in the outpatient setting. He presented here to the emergency room yesterday after a 2-3 day progressive worsening shortness of breath and increased swelling of his lower extremities. His chest x-ray shows no active cardiopulmonary disease. White count 9.5. Hemoglobin 14.6. Creatinine 0.85. ProBNP is 243. He has been utilizing the BiPAP 12/5 and 40% FiO2. He is seen today in consultation on the selective care unit. He is awake and alert in no acute distress. He is still dyspneic with minimal exertion. Still with bronchospasm and wheezing. He has been initiated on bronchodilators and IV Solu-Medrol. On 02/12/2018 patient seen in follow-up. Lung sounds reveal diffuse wheezes, and rhonchi, patient remains on BiPAP, he is tolerating well, he states he is more comfortable on that right now. awake and alert in no acute distress. Still with bronchospasm and wheezing. He is able to bring up some sputum. Afebrile, vital signs are stable. His chest x-ray has been reviewed, shows mild cardiomegaly. Acute pulmonary process. Continue current medical treatment , continue nebulized bronchodilators, diuretics, antibiotics and steroids. Reevaluated today on 02/13/2018, feeling better, breathing easier, patient is responding well to bronchodilators, he has BiPAP available at bedside, and he is using it at night when he sleeps. Patient is known to have history of obstructive sleep apnea and he has his own BiPAP at home. At any rate patient is breathing easier, he is also known to have history of cardiomyopathy and LV dysfunction, previous AICD placement which was placed for ischemic cardiomyopathy. He had a previous CVA in 2004. Labs from today were reviewed, his CBC is relatively normal, bicarb is 40 which implied that the patient had chronic hypercapnic respiratory failure for a long period of time with metabolic compensation. The patient is seen again today 2017 in follow-up on the selective care unit. He is awake and alert in no acute distress. He is breathing a bit easier today as compared to yesterday. Still utilizing the BiPAP in the evenings and during the day while resting. Otherwise he is maintaining O2 saturations in the mid 90s on 3 L/m per nasal cannula. He is currently afebrile. Hemodynamically stable. White count 11.2. Hemoglobin 13.9. Creatinine 0.92. The patient is seen again today 02/15/2018 in follow-up on the selective care unit. He is currently sitting up in a chair at the bedside. He is awake and alert in no acute distress. He continues with a productive cough of clear sputum. He is alternating between the BiPAP and 3 L/m per nasal cannula and maintaining O2 saturations in the 90s. He is afebrile. White count 9.5. Hemoglobin 14.7. Creatinine 0.90. He is continued on IV diuretics. He is also on antibiotics in the form of ceftriaxone and azithromycin. Continued on bronchodilators and IV Solu-Medrol. He has been slow to progress. Objective - Vital Signs Vital signs: Vital Signs Temp 97.6 F 02/15/18 04:00 Pulse 66 02/15/18 08:46 Resp 17 02/15/18 04:00 BP 141/71 02/15/18 04:00 Pulse Ox 94 L 02/15/18 04:00 Intake & Output 02/14/18 02/15/18 02/15/18 18:59 06:59 18:59 Intake Total 1080 600 120 Output Total 900 350 Balance 180 250 120 Weight 171.6 kg Intake: Intake, IV Titration 100 Amount cefTRIAXone 2,000 mg In 100 Sodium Chloride 0.9% 100 ml @ 100 mls/hr IVPB Q24H [facility] Rx#:[id number] Oral 1080 500 120 Output: Urine 900 350 Other: Voiding Method Urinal # Voids 2 3 # Bowel Movements 0 - Exam - Constitutional General appearance: morbidly obese - EENT Eyes: EOMI, PERRLA ENT: hearing grossly normal Ears: bilateral: normal - Neck Neck: normal ROM Carotids: bilateral: upstroke normal Thyroid: bilateral: normal size - Respiratory Respiratory: bilateral: wheezing, prolonged expiration - Cardiovascular Rhythm: regular Heart sounds: normal: S1, S2 - Gastrointestinal General gastrointestinal: normal bowel sounds - Integumentary Integumentary: normal turgor - Neurologic Neurologic: CNII-XII intact - Musculoskeletal Musculoskeletal: generalized weakness - Psychiatric Psychiatric: A&O x's 3, appropriate affect, intact judgment & insight - Labs CBC & Chem 7: 02/15/18 08:07 02/15/18 08:07 Labs: Abnormal Lab Results - Last 24 Hours (Table) 02/14/18 02/14/18 02/15/18 Range/Units 16:34 21:24 06:32 Neutrophils # (1.3-7.7) k/uL Lymphocytes # (1.0-4.8) k/uL Chloride (98-107) mmol/L Carbon Dioxide (22-30) mmol/L BUN (9-20) mg/dL Glucose (74-99) mg/dL POC Glucose (mg/dL) 149 H 156 H 173 H (75-99) mg/dL 02/15/18 02/15/18 Range/Units 08:07 08:07 Neutrophils # 8.0 H (1.3-7.7) k/uL Lymphocytes # 0.9 L (1.0-4.8) k/uL Chloride 95 L (98-107) mmol/L Carbon Dioxide 36 H (22-30) mmol/L BUN 30 H (9-20) mg/dL Glucose 168 H (74-99) mg/dL POC Glucose (mg/dL) (75-99) mg/dL Microbiology - Last 24 Hours (Table) 02/09/18 20:45 Blood Culture - Preliminary Blood No Growth after 120 hours 02/12/18 04:13 Gram Stain - Final Sputum Sputum Culture - Final Assessment and Plan Assessment: Impression: #1 Acute on chronic hypoxic respiratory failure secondary to an acute exacerbation of chronic obstructive pulmonary disease. Currently utilizing BiPAP 12/5 at 40% FiO2. #2 Acute on chronic hypercapnic respiratory failure secondary to above. #3 Morbid obesity with obesity/hypoventilation syndrome/obstructive sleep apnea. Utilizing CPAP in the outpatient setting. #4 Chronic and ongoing tobacco dependence. #5 Coronary artery disease with previous stent placement 4. #6 Ischemic cardiomyopathy status post AICD placement in 2012. #7 History of CVA 2004. #8 Hypertension. #9 Hyperlipidemia. #10 Chronic low back pain. #11 Diverticular disease. Plan: The patient was seen and evaluated by Dr. Rey. The patient has been slow to progress. We'll continue with the current treatment plan. Increase his activity as tolerated. We'll continue to follow. I, the cosigning physician, performed a history & physical examination of the patient. Lungs sounds faint end expiratory wheeze. Maintaining good O2 saturations in the 90s on BiPAP at 40% FiO2 alternating with 3 L/m per nasal cannula. I discussed the assessment and plan of care with my nurse practitioner , Piper Albarado. I attest to the above note as dictated by her.
[2018-02-15] MEDS: MORPHINE SULFATE 4 MG/ML SYRINGE IV PRN (12:43)
[2018-02-15] MEDS: ISOSORBIDE MONONITRATE ER 60 MG TAB.ER.24H PO SCH (12:46)
[2018-02-15 15:38] VITALS: BMI 51.2
[2018-02-15] MEDS: AZITHROMYCIN 500 MG TAB PO SCH (16:45)
[2018-02-15 16:49] LABS: Glucose,Whole Blood 134 mg/dL (75-99)
[2018-02-15] MEDS: cefTRIAXone 2,000 MG in SODIUM CHLORIDE 0.9% 100 ML IVPB SCH (17:45)
[2018-02-15 21:04] LABS: Glucose,Whole Blood 128 mg/dL (75-99)
[2018-02-16] MEDS: IPRATROPIUM-ALBUTEROL 3 ML NEB INHALATION SCH ×6 (01:33→20:14)
[2018-02-16] MEDS: MORPHINE SULFATE 4 MG/ML SYRINGE IV PRN ×3 (04:14→20:58)
[2018-02-16 06:19] LABS: Glucose,Whole Blood 131 mg/dL (75-99)
[2018-02-16] MEDS: INSULIN ASPART 100 UNIT/ML 1 ML 10 ML VIAL SQ SCH ×4 (06:33→21:21)
[2018-02-16] MEDS: BUDESONIDE 1 MG/2 ML NEBU INHALATION SCH ×2 (08:35→20:14)
[2018-02-16] MEDS: FORMOTEROL FUMARATE 20 MCG/2 ML NEBU INHALATION SCH ×2 (08:38→20:14)
[2018-02-16] MEDS: oxyCODONE-APAP 7.5-325MG 1 EACH TAB PO PRN ×2 (08:54→15:48)
[2018-02-16 09:05] LABS: Anion Gap 6 mmol/L; Blood Urea Nitrogen 28 mg/dL (9-20); Calcium 8.9 mg/dL (8.4-10.2); Carbon Dioxide 35 mmol/L (22-30); Chloride 96 mmol/L (98-107); Glucose 139 mg/dL (74-99); Potassium 4.9 mmol/L (3.5-5.1); Sodium 137 mmol/L (137-145)
[2018-02-16] MEDS: FUROSEMIDE 10 MG/ML 4 ML VIAL IV SCH ×2 (09:08→21:05)
[2018-02-16] MEDS: methylPREDNISolone SOD SUCCI 40 MG/ML 1 ML VIAL IV SCH ×2 (09:10→16:10)
[2018-02-16] MEDS: HEPARIN SODIUM,PORCINE 5,000 UNIT/ML 1 ML VIAL SQ SCH ×3 (09:11→21:06)
[2018-02-16] MEDS: cloNIDine HCL 0.2 MG TAB PO SCH ×3 (09:21→16:52)
[2018-02-16] MEDS: ASPIRIN 325 MG TAB PO SCH (09:21)
[2018-02-16] MEDS: ATORVASTATIN 40 MG TAB PO SCH (09:21)
[2018-02-16] MEDS: FAMOTIDINE 20 MG TAB PO SCH ×2 (09:22→21:05)
[2018-02-16] MEDS: CLOPIDOGREL 75 MG TAB PO SCH (09:22)
[2018-02-16] MEDS: CHOLECALCIFEROL 1,000 UNIT TAB PO SCH (09:22)
[2018-02-16] MEDS: CLOTRIMAZOLE 1% CREAM 15 GM TUBE TOPICAL SCH ×2 (09:22→21:21)
[2018-02-16] MEDS: METOPROLOL TARTRATE 25 MG TAB PO SCH ×2 (09:23→21:05)
[2018-02-16] MEDS: LORATADINE 10 MG TAB PO SCH (09:23)
[2018-02-16] MEDS: ISOSORBIDE MONONITRATE ER 60 MG TAB.ER.24H PO SCH (09:23)
[2018-02-16] MEDS: LOSARTAN 50 MG TAB PO SCH (09:23)
[2018-02-16] MEDS: POTASSIUM CHLORIDE ER 20 MEQ TAB.ER PO SCH (09:42)
[2018-02-16 12:08] LABS: Glucose,Whole Blood 111 mg/dL (75-99)
[2018-02-16] MEDS: NYSTATIN 100,000 UNIT/GM POWD 15 GM TOPICAL SCH (12:23)
--- NOTE | 2018-02-16 13:32 | P.PN ---
Subjective Progress Note Date: 02/16/18 Principal diagnosis: Acute on chronic hypoxic respiratory failure secondary to an acute exacerbation of chronic obstructive pulmonary disease. This is a very pleasant 62-year-old gentleman who follows with Dr. Yohan Anna as his primary care provider. He has a history of morbid obesity with obesity/hypoventilation syndrome/obstructive sleep apnea, cor pulmonale, coronary artery disease with previous stent placements 4, AICD placement secondary to ischemic cardio myopathy in 2012, diastolic congestive heart failure, osteoarthritis, CVA in 2004, chronic back pain secondary to degenerative disc disease, spinal cord stenosis. The patient also has chronic obstructive pulmonary disease and chronic and ongoing tobacco dependence. He is on Breo and DuoNeb in the outpatient setting. He presented here to the emergency room yesterday after a 2-3 day progressive worsening shortness of breath and increased swelling of his lower extremities. His chest x-ray shows no active cardiopulmonary disease. White count 9.5. Hemoglobin 14.6. Creatinine 0.85. ProBNP is 243. He has been utilizing the BiPAP 12/5 and 40% FiO2. He is seen today in consultation on the selective care unit. He is awake and alert in no acute distress. He is still dyspneic with minimal exertion. Still with bronchospasm and wheezing. He has been initiated on bronchodilators and IV Solu-Medrol. On 02/12/2018 patient seen in follow-up. Lung sounds reveal diffuse wheezes, and rhonchi, patient remains on BiPAP, he is tolerating well, he states he is more comfortable on that right now. awake and alert in no acute distress. Still with bronchospasm and wheezing. He is able to bring up some sputum. Afebrile, vital signs are stable. His chest x-ray has been reviewed, shows mild cardiomegaly. Acute pulmonary process. Continue current medical treatment , continue nebulized bronchodilators, diuretics, antibiotics and steroids. Reevaluated today on 02/13/2018, feeling better, breathing easier, patient is responding well to bronchodilators, he has BiPAP available at bedside, and he is using it at night when he sleeps. Patient is known to have history of obstructive sleep apnea and he has his own BiPAP at home. At any rate patient is breathing easier, he is also known to have history of cardiomyopathy and LV dysfunction, previous AICD placement which was placed for ischemic cardiomyopathy. He had a previous CVA in 2004. Labs from today were reviewed, his CBC is relatively normal, bicarb is 40 which implied that the patient had chronic hypercapnic respiratory failure for a long period of time with metabolic compensation. The patient is seen again today 2017 in follow-up on the selective care unit. He is awake and alert in no acute distress. He is breathing a bit easier today as compared to yesterday. Still utilizing the BiPAP in the evenings and during the day while resting. Otherwise he is maintaining O2 saturations in the mid 90s on 3 L/m per nasal cannula. He is currently afebrile. Hemodynamically stable. White count 11.2. Hemoglobin 13.9. Creatinine 0.92. The patient is seen again today 02/15/2018 in follow-up on the selective care unit. He is currently sitting up in a chair at the bedside. He is awake and alert in no acute distress. He continues with a productive cough of clear sputum. He is alternating between the BiPAP and 3 L/m per nasal cannula and maintaining O2 saturations in the 90s. He is afebrile. White count 9.5. Hemoglobin 14.7. Creatinine 0.90. He is continued on IV diuretics. He is also on antibiotics in the form of ceftriaxone and azithromycin. Continued on bronchodilators and IV Solu-Medrol. He has been slow to progress. The patient is seen again today 02/16/2018 in follow-up on the selective care unit. He is awake and alert in no acute distress. Sitting up in a chair at the bedside. He continues with a loose productive cough. No chills or night sweats. Continue good O2 saturations in the upper 90s on 2 L/m per nasal cannula. He is currently afebrile. Hemodynamically stable. Blood, urine and sputum cultures all reveal no growth. He remains on ceftriaxone and azithromycin. Objective - Vital Signs Vital signs: Vital Signs Temp 97.8 F 02/16/18 11:56 Pulse 72 02/16/18 12:17 Resp 20 02/16/18 11:56 BP 124/73 02/16/18 11:56 Pulse Ox 96 02/16/18 11:56 Intake & Output 02/15/18 02/16/18 02/16/18 18:59 06:59 18:59 Intake Total 600 240 Output Total 500 1450 Balance 600 -500 -1210 Weight 171.6 kg 171.4 kg Intake: Oral 600 240 Output: Urine 500 1450 Other: Voiding Method Urinal Urinal Toilet Urinal # Voids 2 1 4 # Bowel Movements 1 1 - Exam - Constitutional General appearance: morbidly obese - EENT Eyes: EOMI, PERRLA ENT: hearing grossly normal Ears: bilateral: normal - Neck Neck: normal ROM Carotids: bilateral: upstroke normal Thyroid: bilateral: normal size - Respiratory Respiratory: bilateral: wheezing, prolonged expiration - Cardiovascular Rhythm: regular Heart sounds: normal: S1, S2 - Gastrointestinal General gastrointestinal: normal bowel sounds - Integumentary Integumentary: normal turgor - Neurologic Neurologic: CNII-XII intact - Musculoskeletal Musculoskeletal: generalized weakness - Psychiatric Psychiatric: A&O x's 3, appropriate affect, intact judgment & insight - Labs CBC & Chem 7: 02/15/18 08:07 02/16/18 08:29 Labs: Abnormal Lab Results - Last 24 Hours (Table) 02/15/18 02/15/18 02/16/18 Range/Units 16:19 20:55 06:17 Chloride (98-107) mmol/L Carbon Dioxide (22-30) mmol/L BUN (9-20) mg/dL Glucose (74-99) mg/dL POC Glucose (mg/dL) 134 H 128 H 131 H (75-99) mg/dL 02/16/18 02/16/18 Range/Units 08:29 12:07 Chloride 96 L (98-107) mmol/L Carbon Dioxide 35 H (22-30) mmol/L BUN 28 H (9-20) mg/dL Glucose 139 H (74-99) mg/dL POC Glucose (mg/dL) 111 H (75-99) mg/dL Microbiology - Last 24 Hours (Table) 02/09/18 20:45 Blood Culture - Final Blood No Growth after 144 hours Assessment and Plan Assessment: Impression: #1 Acute on chronic hypoxic respiratory failure secondary to an acute exacerbation of chronic obstructive pulmonary disease. Currently utilizing BiPAP 05/03 at 40% FiO2. While off the BiPAP he is maintaining good O2 saturations in the 90s on 2 L/m per nasal cannula. #2 Acute on chronic hypercapnic respiratory failure secondary to above. #3 Morbid obesity with obesity/hypoventilation syndrome/obstructive sleep apnea. Utilizing CPAP in the outpatient setting. #4 Chronic and ongoing tobacco dependence. #5 Coronary artery disease with previous stent placement 4. #6 Ischemic cardiomyopathy status post AICD placement in 2012. #7 History of CVA 2004. #8 Hypertension. #9 Hyperlipidemia. #10 Chronic low back pain. #11 Diverticular disease. Plan: The patient was seen and evaluated by Dr. Rey. Discharge planning is in place. The patient may benefit from subacute rehabilitation. We'll continue with the current treatment plan. Increase his activity as tolerated. We'll continue to follow. I, the cosigning physician, performed a history & physical examination of the patient. Lungs sounds faint end expiratory wheeze. Maintaining good O2 saturations in the 90s on BiPAP at 40% FiO2 alternating with 2 L/m per nasal cannula. I discussed the assessment and plan of care with my nurse practitioner , Piper Albarado. I attest to the above note as dictated by her.
[2018-02-16] MEDS: guaiFENesin 600 MG TABLET.ER PO SCH ×2 (15:49→21:05)
[2018-02-16] MEDS: AZITHROMYCIN 500 MG TAB PO SCH (16:09)
[2018-02-16] MEDS: cefTRIAXone 2,000 MG in SODIUM CHLORIDE 0.9% 100 ML IVPB SCH (16:11)
[2018-02-16 17:16] LABS: Glucose,Whole Blood 129 mg/dL (75-99)
[2018-02-16 20:53] LABS: Glucose,Whole Blood 187 mg/dL (75-99)
--- NOTE | 2018-02-16 23:30 | P.PN ---
Subjective Progress Note Date: 02/15/18 Principal diagnosis: Acute on chronic hypoxic respiratory failure secondary to COPD exacerbation Patient is a 62-year-old male with a known history of morbid obesity, obesity hypoventilation syndrome, obstructive sleep apnea, cor pulmonale, coronary artery disease with history of stent placement 4, AICD placement secondary to ischemic cardiomyopathy in 2012, Diastolic heart failure, Osteoarthritis, CVA in 2004, chronic back pain secondary to degenerative disc disease, spinal cord stenosis was admitted to the hospital with worsening shortness of breath progressively over the past 2-3 days prior to admission. Chest x-ray showed no acute cardiopulmonary process on admission. 02/14/2018. Patient is still having shortness of breath at baseline and at rest. Patient says that his breathing is slightly eased up and was having yellowish sputum production yesterday. No fever no chills. Patient still on BiPAP patient. Patient does use CPAP at home. Patient is being continued on steroids breathing treatments and antibiotics in the form of ceftriaxone and azithromycin. No complaints of chest pain. No nausea vomiting or abdominal pain. Patient does have constipation. Patient is also on chronic narcotic pain medications at home. 02/15/2018 Patient breathing status is slightly improved. Continue history of cough with clear to whitish sputum production. Still complaining of shortness of breath. Currently saturating well on 3 at another cannula and did use BiPAP machine last night. Hemodynamically stable otherwise. Continued antibiotics in the form of ceftriaxone and azithromycin. IV steroids and breathing treatments will be continued. No fever no chills. No nausea vomiting abdominal pain. PTOT was consulted. All other review of systems negative except the above. Current medications reviewed. Active Medications Generic Name Dose Route Start Last Admin Trade Name Enmanuelq PRN Reason Stop Dose Admin Acetaminophen 650 mg 02/09/18 21:57 Tylenol Tab PO Q6HR PRN Mild Pain or Fever > 100.5 Albuterol Sulfate 2.5 mg 02/09/18 21:59 Ventolin Nebulized INHALATION RT-Q2H PRN Shortness Of Breath Or Wheezing Albuterol/Ipratropium 3 ml 02/10/18 16:00 02/14/18 10:50 Duoneb 0.5 Mg-3 Mg/3 Ml Soln INHALATION 3 ml RT-Q4H KARINA Administration Aspirin 325 mg 02/10/18 09:00 02/14/18 07:55 Aspirin PO 325 mg DAILY KARINA Administration Atorvastatin Calcium 40 mg 02/10/18 09:00 02/14/18 07:55 Lipitor PO 40 mg DAILY KARINA Administration Azithromycin 500 mg 02/13/18 16:00 02/13/18 16:04 Zithromax PO 500 mg DAILY@1600 KARINA Administration Budesonide 1 mg 02/10/18 20:00 02/14/18 07:16 Pulmicort INHALATION 1 mg RT-BID KARINA Administration Cholecalciferol 1,000 unit 02/11/18 09:00 02/14/18 07:55 Vitamin D3 PO 1,000 unit DAILY KARINA Administration Clonidine 0.2 mg 02/10/18 00:00 02/14/18 07:55 Catapres PO 0.2 mg Q8HR KARINA Administration Clopidogrel Bisulfate 75 mg 02/10/18 09:00 02/14/18 07:55 Plavix PO 75 mg DAILY KARINA Administration Clotrimazole 1 applic 02/11/18 12:15 02/14/18 07:58 Lotrimin Cream TOPICAL 1 applic BID KARINA Administration Docusate Sodium 100 mg 02/13/18 04:09 02/14/18 11:18 Colace PO 100 mg BID PRN Administration Constipation Famotidine 20 mg 02/10/18 09:00 02/14/18 07:55 Pepcid PO 20 mg BID KARINA Administration Formoterol Fumarate 20 mcg 02/10/18 20:00 02/14/18 07:16 Perforomist INHALATION 20 mcg RT-BID KARINA Administration Furosemide 40 mg 02/10/18 21:00 02/14/18 07:54 Lasix IV 40 mg Q12HR KARINA Administration Heparin Sodium (Porcine) 5,000 unit 02/10/18 16:00 02/14/18 07:54 Heparin SQ 5,000 unit Q8HR KARINA Administration Ceftriaxone Sodium 2,000 mg/ 100 mls @ 100 mls/hr 02/11/18 17:00 02/13/18 16: 04 Sodium Chloride IVPB 100 mls/hr Q24H KARINA Administration Insulin Aspart 0 unit 02/10/18 07:30 02/14/18 06:30 Novolog SQ 2 unit ACHS KARINA Administration Protocol Isosorbide Mononitrate 60 mg 02/10/18 09:00 02/14/18 07:54 Imdur PO 60 mg DAILY KARINA Administration Loratadine 10 mg 02/11/18 09:00 02/14/18 07:54 Claritin PO 10 mg DAILY KARINA Administration Losartan Potassium 50 mg 02/10/18 09:00 02/14/18 07:55 Cozaar PO 50 mg DAILY KARINA Administration Methylprednisolone Sodium Succinate 40 mg 02/14/18 00:00 02/14/18 07:54 Solu-Medrol IV 40 mg Q8HR KARINA Administration Metoprolol Tartrate 25 mg 02/10/18 09:00 02/14/18 07:55 Lopressor PO 25 mg BID KARINA Administration Morphine Sulfate 4 mg 02/09/18 21:57 02/14/18 07:55 Morphine Sulfate (Inj) IV 4 mg Q4HR PRN Administration Severe Pain Naloxone HCl 0.2 mg 02/09/18 21:57 Narcan IV Q2M PRN Opioid Reversal Nystatin 1 applic 02/10/18 21:00 02/14/18 07:57 Mycostatin Powder TOPICAL 1 applic BID KARINA Administration Ondansetron HCl 4 mg 02/09/18 21:57 Zofran IVP Q8HR PRN Nausea And Vomiting Oxycodone/Acetaminophen 1 each 02/10/18 14:37 02/14/18 11:18 Percocet 7.5-325 PO 1 each Q4HR PRN Administration MODERATE Pain Potassium Chloride 20 meq 02/11/18 09:00 02/14/18 07:54 K-Dur 20 PO 20 meq DAILY KARINA Administration Senna 8.6 mg 02/14/18 10:56 Senokot PO BID PRN Constipation Objective - Vital Signs Vital signs: Vital Signs Temp 97.6 F 02/15/18 04:00 Pulse 62 02/15/18 12:17 Resp 17 02/15/18 04:00 BP 141/71 02/15/18 04:00 Pulse Ox 94 L 02/15/18 04:00 Intake & Output 02/14/18 02/15/18 02/15/18 18:59 06:59 18:59 Intake Total 1080 600 360 Output Total 900 350 Balance 180 250 360 Weight 171.6 kg Intake: Intake, IV Titration 100 Amount cefTRIAXone 2,000 mg In 100 Sodium Chloride 0.9% 100 ml @ 100 mls/hr IVPB Q24H [facility] Rx#:[id number] Oral 1080 500 360 Output: Urine 900 350 Other: Voiding Method Urinal # Voids 2 3 1 # Bowel Movements 0 1 - Exam PHYSICAL EXAMINATION: Patient is lying in the bed comfortably, no acute distress, awake alert and oriented. Morbidly obese. HEENT: Normocephalic. Neck is supple. Pupils reactive. Nostrils clear. Oral cavity is moist. Ears reveal no drainage. Neck reveals no JVD, carotid bruits, or thyromegaly. CHEST EXAMINATION: Trachea is central. Symmetrical expansion. Bilateral diffuse rhonchi and crackles and wheezing. CARDIAC: Normal S1, S2 with no gallops. No murmurs ABDOMEN: Soft. Obese. Bowel sounds normal. No organomegaly. No abdominal bruits. Extremities: 2+ edema. No clubbing or cyanosis Neurologically awake, alert, oriented x3 with well-coordinated movements. No focal deficits noted Skin: No rash or skin lesions. Psychiatric: Coperative. Nonsuicidal Musculoskeletal: No joint swelling or deformity. Normal range of motion. - Labs CBC & Chem 7: 02/15/18 08:07 02/16/18 08:29 Labs: Abnormal Lab Results - Last 24 Hours (Table) 02/14/18 02/14/18 02/15/18 Range/Units 16:34 21:24 06:32 Neutrophils # (1.3-7.7) k/uL Lymphocytes # (1.0-4.8) k/uL Chloride (98-107) mmol/L Carbon Dioxide (22-30) mmol/L BUN (9-20) mg/dL Glucose (74-99) mg/dL POC Glucose (mg/dL) 149 H 156 H 173 H (75-99) mg/dL 02/15/18 02/15/18 Range/Units 08:07 08:07 Neutrophils # 8.0 H (1.3-7.7) k/uL Lymphocytes # 0.9 L (1.0-4.8) k/uL Chloride 95 L (98-107) mmol/L Carbon Dioxide 36 H (22-30) mmol/L BUN 30 H (9-20) mg/dL Glucose 168 H (74-99) mg/dL POC Glucose (mg/dL) (75-99) mg/dL Microbiology - Last 24 Hours (Table) 02/09/18 20:45 Blood Culture - Preliminary Blood No Growth after 120 hours Assessment and Plan Assessment: Acute on chronic hypoxic respiratory failure secondary to COPD exacerbation Acute COPD exacerbation requiring BiPAP now Morbid obesity, obesity hypoventilation syndrome and obstructive sleep apnea Ongoing nicotine dependence Coronary artery disease with history of stent placement 4 Ischemic cardiopathy status post AICD placement in 2012 History of CVA in 2004 Hypertension Hyperlipidemia Chronic back pain and spinal stenosis Diverticular disease Chronic hypoxic respiratory failure on home oxygen DVT prophylaxis with heparin subcu Plan: Patient will be continued on antibiotics, breathing treatments and steroids and BiPAP as needed. Currently the current management and follow closely. PTOT consult and possible rehab transfer once medically stable. Prognosis is guarded with multiple medical problems and comorbid conditions. Further recommendations based on the clinical course. Time with Patient: Greater than 30
--- NOTE | 2018-02-16 23:32 | P.PN ---
Subjective Progress Note Date: 02/16/18 Principal diagnosis: Acute on chronic hypoxic respiratory failure secondary to COPD exacerbation Patient is a 62-year-old male with a known history of morbid obesity, obesity hypoventilation syndrome, obstructive sleep apnea, cor pulmonale, coronary artery disease with history of stent placement 4, AICD placement secondary to ischemic cardiomyopathy in 2012, Diastolic heart failure, Osteoarthritis, CVA in 2004, chronic back pain secondary to degenerative disc disease, spinal cord stenosis was admitted to the hospital with worsening shortness of breath progressively over the past 2-3 days prior to admission. Chest x-ray showed no acute cardiopulmonary process on admission. 02/14/2018. Patient is still having shortness of breath at baseline and at rest. Patient says that his breathing is slightly eased up and was having yellowish sputum production yesterday. No fever no chills. Patient still on BiPAP patient. Patient does use CPAP at home. Patient is being continued on steroids breathing treatments and antibiotics in the form of ceftriaxone and azithromycin. No complaints of chest pain. No nausea vomiting or abdominal pain. Patient does have constipation. Patient is also on chronic narcotic pain medications at home. 02/15/2018 Patient breathing status is slightly improved. Continue history of cough with clear to whitish sputum production. Still complaining of shortness of breath. Currently saturating well on 3 at another cannula and did use BiPAP machine last night. Hemodynamically stable otherwise. Continued antibiotics in the form of ceftriaxone and azithromycin. IV steroids and breathing treatments will be continued. No fever no chills. No nausea vomiting abdominal pain. PTOT was consulted. 02/16/2018 Breathing status is much improved today. Saturating well on nasal cannula. Cough improved as well. No fever no chills. Patient is improving slowly otherwise denied blood cultures showed no growth. Continued on antibiotics IV steroids and breathing treatments. No fever no chills. No other acute overnight issues. All other review of systems negative except the above. Current medications reviewed. Active Medications Generic Name Dose Route Start Last Admin Trade Name Freq PRN Reason Stop Dose Admin Acetaminophen 650 mg 02/09/18 21:57 Tylenol Tab PO Q6HR PRN Mild Pain or Fever > 100.5 Albuterol Sulfate 2.5 mg 02/09/18 21:59 Ventolin Nebulized INHALATION RT-Q2H PRN Shortness Of Breath Or Wheezing Albuterol/Ipratropium 3 ml 02/10/18 16:00 02/14/18 10:50 Duoneb 0.5 Mg-3 Mg/3 Ml Soln INHALATION 3 ml RT-Q4H KARINA Administration Aspirin 325 mg 02/10/18 09:00 02/14/18 07:55 Aspirin PO 325 mg DAILY KARINA Administration Atorvastatin Calcium 40 mg 02/10/18 09:00 02/14/18 07:55 Lipitor PO 40 mg DAILY KARINA Administration Azithromycin 500 mg 02/13/18 16:00 02/13/18 16:04 Zithromax PO 500 mg DAILY@1600 KARINA Administration Budesonide 1 mg 02/10/18 20:00 02/14/18 07:16 Pulmicort INHALATION 1 mg RT-BID KARINA Administration Cholecalciferol 1,000 unit 02/11/18 09:00 02/14/18 07:55 Vitamin D3 PO 1,000 unit DAILY KARINA Administration Clonidine 0.2 mg 02/10/18 00:00 02/14/18 07:55 Catapres PO 0.2 mg Q8HR KARINA Administration Clopidogrel Bisulfate 75 mg 02/10/18 09:00 02/14/18 07:55 Plavix PO 75 mg DAILY KARINA Administration Clotrimazole 1 applic 02/11/18 12:15 02/14/18 07:58 Lotrimin Cream TOPICAL 1 applic BID KARINA Administration Docusate Sodium 100 mg 02/13/18 04:09 02/14/18 11:18 Colace PO 100 mg BID PRN Administration Constipation Famotidine 20 mg 02/10/18 09:00 02/14/18 07:55 Pepcid PO 20 mg BID KARINA Administration Formoterol Fumarate 20 mcg 02/10/18 20:00 02/14/18 07:16 Perforomist INHALATION 20 mcg RT-BID KARINA Administration Furosemide 40 mg 02/10/18 21:00 02/14/18 07:54 Lasix IV 40 mg Q12HR KARINA Administration Heparin Sodium (Porcine) 5,000 unit 02/10/18 16:00 02/14/18 07:54 Heparin SQ 5,000 unit Q8HR KARINA Administration Ceftriaxone Sodium 2,000 mg/ 100 mls @ 100 mls/hr 02/11/18 17:00 02/13/18 16: 04 Sodium Chloride IVPB 100 mls/hr Q24H KARINA Administration Insulin Aspart 0 unit 02/10/18 07:30 02/14/18 06:30 Novolog SQ 2 unit ACHS KARINA Administration Protocol Isosorbide Mononitrate 60 mg 02/10/18 09:00 02/14/18 07:54 Imdur PO 60 mg DAILY KARINA Administration Loratadine 10 mg 02/11/18 09:00 02/14/18 07:54 Claritin PO 10 mg DAILY KARINA Administration Losartan Potassium 50 mg 02/10/18 09:00 02/14/18 07:55 Cozaar PO 50 mg DAILY KARINA Administration Methylprednisolone Sodium Succinate 40 mg 02/14/18 00:00 02/14/18 07:54 Solu-Medrol IV 40 mg Q8HR KARINA Administration Metoprolol Tartrate 25 mg 02/10/18 09:00 02/14/18 07:55 Lopressor PO 25 mg BID KARINA Administration Morphine Sulfate 4 mg 02/09/18 21:57 02/14/18 07:55 Morphine Sulfate (Inj) IV 4 mg Q4HR PRN Administration Severe Pain Naloxone HCl 0.2 mg 02/09/18 21:57 Narcan IV Q2M PRN Opioid Reversal Nystatin 1 applic 02/10/18 21:00 02/14/18 07:57 Mycostatin Powder TOPICAL 1 applic BID KARINA Administration Ondansetron HCl 4 mg 02/09/18 21:57 Zofran IVP Q8HR PRN Nausea And Vomiting Oxycodone/Acetaminophen 1 each 02/10/18 14:37 02/14/18 11:18 Percocet 7.5-325 PO 1 each Q4HR PRN Administration MODERATE Pain Potassium Chloride 20 meq 02/11/18 09:00 02/14/18 07:54 K-Dur 20 PO 20 meq DAILY KARINA Administration Senna 8.6 mg 02/14/18 10:56 Senokot PO BID PRN Constipation Objective - Vital Signs Vital signs: Vital Signs Temp 97.6 F 02/16/18 20:00 Pulse 64 02/16/18 20:24 Resp 20 02/16/18 20:00 BP 149/90 02/16/18 20:00 Pulse Ox 94 L 02/16/18 20:00 Intake & Output 02/16/18 02/16/18 02/17/18 06:59 18:59 06:59 Intake Total 520 Output Total 500 2850 Balance -500 -2330 Weight 171.4 kg Intake: IV 100 cefTRIAXone 2,000 mg In 100 Sodium Chloride 0.9% 100 ml @ 100 mls/hr IVPB Q24H [facility] Rx#:[id number] Oral 420 Output: Urine 500 2850 Other: Voiding Method Urinal Toilet Urinal # Voids 1 1 # Bowel Movements 1 - Exam PHYSICAL EXAMINATION: Patient is lying in the bed comfortably, no acute distress, awake alert and oriented. Morbidly obese. HEENT: Normocephalic. Neck is supple. Pupils reactive. Nostrils clear. Oral cavity is moist. Ears reveal no drainage. Neck reveals no JVD, carotid bruits, or thyromegaly. CHEST EXAMINATION: Trachea is central. Symmetrical expansion. Bilateral air entry improved. Minimal basilar rhonchi and expiratory wheezing. CARDIAC: Normal S1, S2 with no gallops. No murmurs ABDOMEN: Soft. Obese. Bowel sounds normal. No organomegaly. No abdominal bruits. Extremities: 2+ edema. No clubbing or cyanosis Neurologically awake, alert, oriented x3 with well-coordinated movements. No focal deficits noted Skin: No rash or skin lesions. Psychiatric: Coperative. Nonsuicidal Musculoskeletal: No joint swelling or deformity. Normal range of motion. - Labs CBC & Chem 7: 02/15/18 08:07 02/16/18 08:29 Labs: Abnormal Lab Results - Last 24 Hours (Table) 02/16/18 02/16/18 02/16/18 Range/Units 06:17 08:29 08:29 Chloride 96 L (98-107) mmol/L Carbon Dioxide 35 H (22-30) mmol/L BUN 28 H (9-20) mg/dL Glucose 139 H (74-99) mg/dL POC Glucose (mg/dL) 131 H (75-99) mg/dL Magnesium 2.4 H (1.6-2.3) mg/dL 02/16/18 02/16/18 02/16/18 Range/Units 12:07 17:12 20:52 Chloride (98-107) mmol/L Carbon Dioxide (22-30) mmol/L BUN (9-20) mg/dL Glucose (74-99) mg/dL POC Glucose (mg/dL) 111 H 129 H 187 H (75-99) mg/dL Magnesium (1.6-2.3) mg/dL Microbiology - Last 24 Hours (Table) 02/09/18 20:45 Blood Culture - Final Blood No Growth after 144 hours Assessment and Plan Assessment: Acute on chronic hypoxic respiratory failure secondary to COPD exacerbation Acute COPD exacerbation requiring BiPAP now Morbid obesity, obesity hypoventilation syndrome and obstructive sleep apnea Ongoing nicotine dependence Coronary artery disease with history of stent placement 4 Ischemic cardiopathy status post AICD placement in 2012 History of CVA in 2004 Hypertension Hyperlipidemia Chronic back pain and spinal stenosis Diverticular disease Chronic hypoxic respiratory failure on home oxygen DVT prophylaxis with heparin subcu Plan: Patient will be continued on antibiotics, breathing treatments and steroids and BiPAP as needed. Currently the current management and follow closely. PTOT consult and possible rehab transfer once medically stable. Prognosis is guarded with multiple medical problems and comorbid conditions. Further recommendations based on the clinical course. Time with Patient: Greater than 30
[2018-02-17] MEDS: IPRATROPIUM-ALBUTEROL 3 ML NEB INHALATION SCH ×7 (00:21→21:53)
[2018-02-17] MEDS: cloNIDine HCL 0.2 MG TAB PO SCH ×3 (00:36→15:29)
[2018-02-17] MEDS: methylPREDNISolone SOD SUCCI 40 MG/ML 1 ML VIAL IV SCH ×3 (00:36→15:28)
[2018-02-17] MEDS: NYSTATIN 100,000 UNIT/GM POWD 15 GM TOPICAL SCH ×3 (00:36→20:49)
[2018-02-17] MEDS: oxyCODONE-APAP 7.5-325MG 1 EACH TAB PO PRN ×3 (03:44→18:25)
[2018-02-17 05:39] LABS: Glucose,Whole Blood 127 mg/dL (75-99)
[2018-02-17 06:23] LABS: Basophils % (A) 0 %; Eosinophils % (A) 0 %; HCT 47.8 % (39.0-53.0); HGB 15.2 gm/dL (13.0-17.5); Lymphocytes # (A) 1.3 k/uL (1.0-4.8); Lymphocytes % (A) 9 %; MCH 28.8 pg (25.0-35.0); MCHC 31.8 g/dL (31.0-37.0); MCV 90.6 fL (80.0-100.0); Mean Platelet Volume 7.5; Monocytes % (A) 7 %; Neutrophils # (A) 12.4 k/uL (1.3-7.7); Neutrophils % (A) 83 %; Platelet Count 218 k/uL (150-450); RBC 5.27 m/uL (4.30-5.90); RDW 14.1 % (11.5-15.5)
[2018-02-17 06:32] LABS: Anion Gap 8 mmol/L; Blood Urea Nitrogen 40 mg/dL (9-20); Calcium 9.3 mg/dL (8.4-10.2); Carbon Dioxide 33 mmol/L (22-30); Chloride 93 mmol/L (98-107); Glucose 134 mg/dL (74-99); Sodium 134 mmol/L (137-145)
[2018-02-17 06:33] LABS: Potassium 5.5 mmol/L (3.5-5.1)
[2018-02-17] MEDS: INSULIN ASPART 100 UNIT/ML 1 ML 10 ML VIAL SQ SCH ×4 (06:43→20:59)
[2018-02-17] MEDS: MORPHINE SULFATE 4 MG/ML SYRINGE IV PRN ×3 (07:43→21:00)
[2018-02-17] MEDS: HEPARIN SODIUM,PORCINE 5,000 UNIT/ML 1 ML VIAL SQ SCH ×3 (09:08→20:48)
[2018-02-17] MEDS: CLOTRIMAZOLE 1% CREAM 15 GM TUBE TOPICAL SCH ×2 (09:15→20:47)
[2018-02-17] MEDS: BUDESONIDE 1 MG/2 ML NEBU INHALATION SCH ×2 (09:17→21:50)
[2018-02-17] MEDS: FORMOTEROL FUMARATE 20 MCG/2 ML NEBU INHALATION SCH ×2 (09:17→21:50)
[2018-02-17] MEDS: CLOPIDOGREL 75 MG TAB PO SCH (09:41)
[2018-02-17] MEDS: CHOLECALCIFEROL 1,000 UNIT TAB PO SCH (09:41)
[2018-02-17] MEDS: ATORVASTATIN 40 MG TAB PO SCH (09:41)
[2018-02-17] MEDS: ASPIRIN 325 MG TAB PO SCH (09:41)
[2018-02-17] MEDS: FAMOTIDINE 20 MG TAB PO SCH ×2 (09:41→20:48)
[2018-02-17] MEDS: guaiFENesin 600 MG TABLET.ER PO SCH ×2 (09:43→20:48)
[2018-02-17] MEDS: ISOSORBIDE MONONITRATE ER 60 MG TAB.ER.24H PO SCH (09:43)
[2018-02-17] MEDS: LOSARTAN 50 MG TAB PO SCH (09:45)
[2018-02-17] MEDS: LORATADINE 10 MG TAB PO SCH (09:45)
[2018-02-17] MEDS: METOPROLOL TARTRATE 25 MG TAB PO SCH (09:46)
[2018-02-17] MEDS: FUROSEMIDE 10 MG/ML 4 ML VIAL IV SCH (09:47)
[2018-02-17] MEDS: POTASSIUM CHLORIDE ER 20 MEQ TAB.ER PO SCH (09:48)
[2018-02-17 12:11] LABS: Glucose,Whole Blood 158 mg/dL (75-99)
--- NOTE | 2018-02-17 13:00 | P.PN ---
Subjective Progress Note Date: 02/17/18 Principal diagnosis: Acute on chronic hypoxic respiratory failure secondary to an acute exacerbation of chronic obstructive pulmonary disease. This is a very pleasant 62-year-old gentleman who follows with Dr. Yohan Anna as his primary care provider. He has a history of morbid obesity with obesity/hypoventilation syndrome/obstructive sleep apnea, cor pulmonale, coronary artery disease with previous stent placements 4, AICD placement secondary to ischemic cardio myopathy in 2012, diastolic congestive heart failure, osteoarthritis, CVA in 2004, chronic back pain secondary to degenerative disc disease, spinal cord stenosis. The patient also has chronic obstructive pulmonary disease and chronic and ongoing tobacco dependence. He is on Breo and DuoNeb in the outpatient setting. He presented here to the emergency room yesterday after a 2-3 day progressive worsening shortness of breath and increased swelling of his lower extremities. His chest x-ray shows no active cardiopulmonary disease. White count 9.5. Hemoglobin 14.6. Creatinine 0.85. ProBNP is 243. He has been utilizing the BiPAP 12/5 and 40% FiO2. He is seen today in consultation on the selective care unit. He is awake and alert in no acute distress. He is still dyspneic with minimal exertion. Still with bronchospasm and wheezing. He has been initiated on bronchodilators and IV Solu-Medrol. On 02/12/2018 patient seen in follow-up. Lung sounds reveal diffuse wheezes, and rhonchi, patient remains on BiPAP, he is tolerating well, he states he is more comfortable on that right now. awake and alert in no acute distress. Still with bronchospasm and wheezing. He is able to bring up some sputum. Afebrile, vital signs are stable. His chest x-ray has been reviewed, shows mild cardiomegaly. Acute pulmonary process. Continue current medical treatment , continue nebulized bronchodilators, diuretics, antibiotics and steroids. Reevaluated today on 02/13/2018, feeling better, breathing easier, patient is responding well to bronchodilators, he has BiPAP available at bedside, and he is using it at night when he sleeps. Patient is known to have history of obstructive sleep apnea and he has his own BiPAP at home. At any rate patient is breathing easier, he is also known to have history of cardiomyopathy and LV dysfunction, previous AICD placement which was placed for ischemic cardiomyopathy. He had a previous CVA in 2004. Labs from today were reviewed, his CBC is relatively normal, bicarb is 40 which implied that the patient had chronic hypercapnic respiratory failure for a long period of time with metabolic compensation. The patient is seen again today 2017 in follow-up on the selective care unit. He is awake and alert in no acute distress. He is breathing a bit easier today as compared to yesterday. Still utilizing the BiPAP in the evenings and during the day while resting. Otherwise he is maintaining O2 saturations in the mid 90s on 3 L/m per nasal cannula. He is currently afebrile. Hemodynamically stable. White count 11.2. Hemoglobin 13.9. Creatinine 0.92. The patient is seen again today 02/15/2018 in follow-up on the selective care unit. He is currently sitting up in a chair at the bedside. He is awake and alert in no acute distress. He continues with a productive cough of clear sputum. He is alternating between the BiPAP and 3 L/m per nasal cannula and maintaining O2 saturations in the 90s. He is afebrile. White count 9.5. Hemoglobin 14.7. Creatinine 0.90. He is continued on IV diuretics. He is also on antibiotics in the form of ceftriaxone and azithromycin. Continued on bronchodilators and IV Solu-Medrol. He has been slow to progress. The patient is seen again today 02/16/2018 in follow-up on the selective care unit. He is awake and alert in no acute distress. Sitting up in a chair at the bedside. He continues with a loose productive cough. No chills or night sweats. Continue good O2 saturations in the upper 90s on 2 L/m per nasal cannula. He is currently afebrile. Hemodynamically stable. Blood, urine and sputum cultures all reveal no growth. He remains on ceftriaxone and azithromycin. is seen again today 02/17/2018 in follow-up on the selective care unit. He is currently sitting up in a chair at the bedside. He is awake and alert in no acute distress. He is finally feeling quite a bit better. He is less bronchospastic and wheezy. He is less coughing. He feels he is nearly back to his baseline. He had declined to have a bronchoscopy with BAL today. He is maintaining good O2 saturations in the mid 90s on 2 L/m per nasal cannula. He remains afebrile. White count 15.0. Hemoglobin 15.2. Creatinine 0.84. Trip of ceftriaxone and azithromycin. Continued on bronchodilators and IV Solu-Medrol. Objective - Vital Signs Vital signs: Vital Signs Temp 97.5 F L 02/17/18 08:15 Pulse 61 02/17/18 11:24 Resp 18 02/17/18 11:24 BP 113/76 02/17/18 11:24 Pulse Ox 96 02/17/18 11:24 Intake & Output 02/16/18 02/17/18 02/17/18 18:59 06:59 18:59 Intake Total 520 548 800 Output Total 2850 1000 450 Balance -2330 -452 350 Weight 169.1 kg Intake: IV 100 cefTRIAXone 2,000 mg In 100 Sodium Chloride 0.9% 100 ml @ 100 mls/hr IVPB Q24H [facility] Rx#:[id number] Oral 420 548 800 Output: Urine 2850 1000 450 Other: Voiding Method Toilet Toilet Toilet Urinal Urinal Urinal # Voids 1 1 1 # Bowel Movements 1 - Exam - Constitutional General appearance: morbidly obese male in no acute distress. - EENT Eyes: EOMI, PERRLA ENT: hearing grossly normal Ears: bilateral: normal - Neck Neck: normal ROM Carotids: bilateral: upstroke normal Thyroid: bilateral: normal size - Respiratory Respiratory: bilateral: Faint end expiratory wheeze, diminished - Cardiovascular Rhythm: regular Heart sounds: normal: S1, S2 - Gastrointestinal General gastrointestinal: normal bowel sounds - Integumentary Integumentary: normal turgor - Neurologic Neurologic: CNII-XII intact - Musculoskeletal Musculoskeletal: generalized weakness - Psychiatric Psychiatric: A&O x's 3, appropriate affect, intact judgment & insight - Labs CBC & Chem 7: 02/17/18 05:35 02/17/18 05:35 Labs: Abnormal Lab Results - Last 24 Hours (Table) 02/16/18 02/16/18 02/16/18 Range/Units 08:29 17:12 20:52 WBC (3.8-10.6) k/uL Neutrophils # (1.3-7.7) k/uL Sodium (137-145) mmol/L Potassium (3.5-5.1) mmol/L Chloride (98-107) mmol/L Carbon Dioxide (22-30) mmol/L BUN (9-20) mg/dL Glucose (74-99) mg/dL POC Glucose (mg/dL) 129 H 187 H (75-99) mg/dL Magnesium 2.4 H (1.6-2.3) mg/dL 02/17/18 02/17/18 02/17/18 Range/Units 05:35 05:35 05:38 WBC 15.0 H (3.8-10.6) k/uL Neutrophils # 12.4 H (1.3-7.7) k/uL Sodium 134 L (137-145) mmol/L Potassium 5.5 H (3.5-5.1) mmol/L Chloride 93 L (98-107) mmol/L Carbon Dioxide 33 H (22-30) mmol/L BUN 40 H (9-20) mg/dL Glucose 134 H (74-99) mg/dL POC Glucose (mg/dL) 127 H (75-99) mg/dL Magnesium (1.6-2.3) mg/dL 02/17/18 Range/Units 11:56 WBC (3.8-10.6) k/uL Neutrophils # (1.3-7.7) k/uL Sodium (137-145) mmol/L Potassium (3.5-5.1) mmol/L Chloride (98-107) mmol/L Carbon Dioxide (22-30) mmol/L BUN (9-20) mg/dL Glucose (74-99) mg/dL POC Glucose (mg/dL) 158 H (75-99) mg/dL Magnesium (1.6-2.3) mg/dL Assessment and Plan Assessment: Impression: #1 Acute on chronic hypoxic respiratory failure secondary to an acute exacerbation of chronic obstructive pulmonary disease. He has been slow to progress but is improved today. Currently utilizing BiPAP 12/5 at 40% FiO2. While off the BiPAP he is maintaining good O2 saturations in the 90s on 2 L/m per nasal cannula. #2 Acute on chronic hypercapnic respiratory failure secondary to above. #3 Morbid obesity with obesity/hypoventilation syndrome/obstructive sleep apnea. Utilizing CPAP in the outpatient setting. #4 Chronic and ongoing tobacco dependence. #5 Coronary artery disease with previous stent placement 4. #6 Ischemic cardiomyopathy status post AICD placement in 2012. #7 History of CVA 2004. #8 Hypertension. #9 Hyperlipidemia. #10 Chronic low back pain. #11 Diverticular disease. Plan: The patient was seen and evaluated by Dr. Rey. The patient did decline bronchoscopy with BAL today. He has improving clinically now. The best day he' s had thus far. We'll continue with the current treatment plan. Increase his activity as tolerated. We'll continue to follow. I, the cosigning physician, performed a history & physical examination of the patient. Lungs sounds faint end expiratory wheeze. Maintaining good O2 saturations in the 90s on BiPAP at 40% FiO2 alternating with 2 L/m per nasal cannula. I discussed the assessment and plan of care with my nurse practitioner , Piper Albarado. I attest to the above note as dictated by her.
--- NOTE | 2018-02-17 15:06 | P.CRDCN ---
History of Present Illness Consult date: 02/17/18 Requesting physician: Dora Parikh Reason for Consult (text): "AICD Management" Chief complaint: shortness of breath History of present illness: This is a pleasant 62-year-old gentleman with a known history of morbid obesity, obstructive sleep apnea, cor pulmonale, permanent pacemaker placement in 2012, diastolic heart failure, chronic, chronic back pain, CVA in 2004. He was admitted to the hospital with worsening shortness of breath over the past 2-3 days prior to admission. Chest x-ray showed no acute cardiopulmonary process on admission. We were asked to see the patient in consultation for management of "AICD". Device was interrogated yesterday. Patient doesn't fact have a pacemaker. Appears to be functioning normally. Patient has had some episodes of SVT and PAT. These seem to be asymptomatic. Patient is using pacemaker about 25% of the time in the atrium only. Upon examination, patient is sitting up in a chair he feels his breathing has improved. No complaints of chest discomfort, palpitations, dizziness or syncope. Past Medical History Past Medical History: Coronary Artery Disease (CAD), Chest Pain / Angina, COPD, CVA/TIA, Hyperlipidemia, Hypertension, Myocardial Infarction ([place]), Osteoarthritis (OA), Respiratory Disorder, Sleep Apnea/CPAP/BIPAP Additional Past Medical History / Comment(s): COPD, obesity, obesity hypoventilation syndrome, obstructive sleep apnea, suspected CHF and cor pulmonale, coronary artery disease with previous stenting of the LAD, previous history of AICD placement, osteoarthritis, CVA in 2004, chronic back pain secondary to degenerative disc disease and spinal canal stenosis, history of vertebral fracture L2 through L5, chronic lower extremity edema, diverticular disease, hyperlipidemia, hypertension, previous history of myocardial infarction ,, L knee fx in past and torn R rotator cuff. cellulitis. Last Myocardial Infarction Date:: 2011 History of Any Multi-Drug Resistant Organisms: None Reported Past Surgical History: AICD, Heart Catheterization With Stent, Hernia Repair Additional Past Surgical History / Comment(s): PTCA, PTCA with stent (4 total), 04/05/13 AICD [employer] scientific, 1989' umbilical hernia repair, colonoscopy, circumcism, R eye surgery for strabismus. Past Anesthesia/Blood Transfusion Reactions: No Reported Reaction Date of Last Stent Placement:: 2012 Type of Cardiac Device: AICD Device Placement Date:: 04/05/13 Past Psychological History: No Psychological Hx Reported Additional Psychological History / Comment(s): Pt is living in a home with roomates. He can drive. He states he uses a cane or walker at home. Smoking Status: Current some day smoker Past Alcohol Use History: None Reported Additional Past Alcohol Use History / Comment(s): Pt states he started smoking around 1970 and smokes just a couple cigarettes a day Past Drug Use History: None Reported - Past Family History Father Family Medical History: Musculoskeletal Disorder, Neurologic Disorder Additional Family Medical History / Comment(s): Father had parkinson's dx and at age 84 yrs. Mother Family Medical History: Myocardial Infarction ([place]) Additional Family Medical History / Comment(s): Mother had 3 vessel CABG. She of a massive [place] at the age of 53 yrs. Medications and Allergies Home Medications Medication Instructions Recorded Confirmed Type Clopidogrel [Plavix] 75 mg PO DAILY #30 tab 02/05/16 02/09/18 Rx Isosorbide Mononitrate ER [Imdur] 60 mg PO DAILY 04/25/17 02/09/18 History Metoprolol Tartrate [Lopressor] 25 mg PO BID 04/25/17 02/09/18 History Nystatin 100,000 Unit/gm Powd 1 applic TOPICAL BID 04/25/17 02/10/18 History [Mycostatin Powder] Losartan [Cozaar] 50 mg PO DAILY #30 tab 04/27/17 02/09/18 Rx cloNIDine HCL [Catapres] 0.2 mg PO Q8HR #90 tab 05/17/17 02/09/18 Rx Potassium Chloride ER [K-Dur 20] 20 meq PO DAILY tab.er.prt 08/09/17 02/09/18 Rx Aspirin EC [Ecotrin] 325 mg PO DAILY 02/09/18 02/09/18 History Albuterol Inhaler [Ventolin Hfa 2 puff INHALATION RT-Q4H PRN 02/10/18 02/10/18 History Inhaler] Atorvastatin [Lipitor] 40 mg PO HS 02/10/18 02/10/18 History Budesonide/Formoterol Fumarate 2 puff INHALATION RT-DAILY 02/10/18 02/10/18 History [Symbicort 160-4.5 Mcg Inhaler] Cetirizine HCl [Zyrtec] 10 mg PO DAILY 02/10/18 02/10/18 History Cholecalciferol [Vitamin D3] 1,000 unit PO DAILY 02/10/18 02/10/18 History Fluconazole [Diflucan] 200 mg PO DAILY 02/10/18 02/10/18 History Furosemide [Lasix] 40 mg PO DAILY 02/10/18 02/10/18 History Vitamin B Complex/Folic Acid 0.4 mg PO DAILY 02/10/18 02/10/18 History [B-Complex Tablet] oxyCODONE-APAP 7.5-325MG [Percocet 1 tab PO Q4HR PRN 02/10/18 02/10/18 History 7.5-325 mg] Allergies Allergy/AdvReac Type Severity Reaction Status Date / Time No Known Allergies Allergy Verified 02/10/18 11:01 Physical Exam Vitals: Vital Signs Temp Pulse Pulse Resp BP Pulse Ox 02/17/18 09:51 84 02/17/18 09:41 80 02/17/18 09:40 80 02/17/18 09:30 80 94 L 02/17/18 08:15 97.5 F L 65 18 156/86 94 L 02/17/18 08:00 65 18 02/17/18 04:00 69 20 02/17/18 03:47 97.3 F L 69 20 120/79 92 L 02/17/18 00:00 98 F 60 15 129/80 96 02/16/18 20:24 64 02/16/18 20:14 64 02/16/18 20:00 97.6 F 68 20 149/90 94 L 02/16/18 16:33 60 98/59 02/16/18 16:27 79 02/16/18 16:20 78 02/16/18 16:00 20 02/16/18 15:00 18 02/16/18 14:00 98.8 F 63 18 106/64 95 02/16/18 12:17 72 02/16/18 12:06 68 02/16/18 11:56 97.8 F 68 20 124/73 96 Intake and Output 02/16/18 02/17/18 02/17/18 22:59 06:59 14:59 Intake Total 554 274 800 Output Total 1400 1000 450 Balance -846 -726 350 Intake: IV 100 cefTRIAXone 2,000 mg In 100 Sodium Chloride 0.9% 100 ml @ 100 mls/hr IVPB Q24H [facility] Rx#:[id number] Oral 454 274 800 Output: Urine 1400 1000 450 Other: Voiding Method Toilet Toilet Toilet Urinal Urinal Urinal # Voids 1 1 1 Weight 169.1 kg PHYSICAL EXAMINATION: HEENT: [Head is atraumatic, normocephalic. Pupils equal, round. Neck is supple. There is no elevated jugular venous pressure.] HEART EXAMINATION: [Heart sounds regular, S1 and S2, distant. No murmur or gallop heard.] CHEST EXAMINATION:[ Lungs reveal diminished air entry bilaterally. No chest wall tenderness is noted on palpation or with deep breathing.] ABDOMEN: [ Soft, obese, nontender. Bowel sounds are heard. No organomegaly noted ]. EXTREMITIES:[ Diminished peripheral pulses with evidence of peripheral edema and no calf tenderness noted]. NEUROLOGIC [patient is awake, alert and oriented x3.] . Results 02/17/18 05:35 02/17/18 05:35 CBC 02/17/18 Range/Units 05:35 WBC 15.0 H (3.8-10.6) k/uL RBC 5.27 (4.30-5.90) m/uL Hgb 15.2 (13.0-17.5) gm/dL Hct 47.8 (39.0-53.0) % Plt Count 218 (150-450) k/uL Comprehensive Metabolic Panel 02/17/18 Range/Units 05:35 Sodium 134 L (137-145) mmol/L Potassium 5.5 H (3.5-5.1) mmol/L Chloride 93 L (98-107) mmol/L Carbon Dioxide 33 H (22-30) mmol/L BUN 40 H (9-20) mg/dL Creatinine 0.84 (0.66-1.25) mg/dL Glucose 134 H (74-99) mg/dL Calcium 9.3 (8.4-10.2) mg/dL Current Medications Generic Name Dose Route Start Last Admin Trade Name Freq PRN Reason Stop Dose Admin Acetaminophen 650 mg 02/09/18 21:57 Tylenol Tab PO Q6HR PRN Mild Pain or Fever > 100.5 Albuterol Sulfate 2.5 mg 02/09/18 21:59 Ventolin Nebulized INHALATION RT-Q2H PRN Shortness Of Breath Or Wheezing Albuterol/Ipratropium 3 ml 02/10/18 16:00 02/17/18 09:17 Duoneb 0.5 Mg-3 Mg/3 Ml Soln INHALATION 3 ml RT-Q4H KARINA Administration Aspirin 325 mg 02/10/18 09:00 02/17/18 09:41 Aspirin PO 325 mg DAILY KARINA Administration Atorvastatin Calcium 40 mg 02/10/18 09:00 02/17/18 09:41 Lipitor PO 40 mg DAILY KARINA Administration Azithromycin 500 mg 02/13/18 16:00 02/16/18 16:09 Zithromax PO 500 mg DAILY@1600 KARINA Administration Budesonide 1 mg 02/10/18 20:00 02/17/18 09:17 Pulmicort INHALATION 1 mg RT-BID KARINA Administration Cholecalciferol 1,000 unit 02/11/18 09:00 02/17/18 09:41 Vitamin D3 PO 1,000 unit DAILY KARINA Administration Clonidine 0.2 mg 02/10/18 00:00 02/17/18 09:08 Catapres PO 0.2 mg Q8HR KARINA Administration Clopidogrel Bisulfate 75 mg 02/10/18 09:00 02/17/18 09:41 Plavix PO 75 mg DAILY KARINA Administration Clotrimazole 1 applic 02/11/18 12:15 02/17/18 09:15 Lotrimin Cream TOPICAL 1 applic BID KARINA Administration Docusate Sodium 100 mg 02/13/18 04:09 02/14/18 20:27 Colace PO 100 mg BID PRN Administration Constipation Famotidine 20 mg 02/10/18 09:00 02/17/18 09:41 Pepcid PO 20 mg BID KARINA Administration Formoterol Fumarate 20 mcg 02/10/18 20:00 02/17/18 09:17 Perforomist INHALATION 20 mcg RT-BID KARINA Administration Furosemide 40 mg 02/18/18 09:00 Lasix PO DAILY [facility] Guaifenesin 600 mg 02/16/18 21:00 02/17/18 09:43 Mucinex PO 600 mg Q12HR KARINA Administration Heparin Sodium (Porcine) 5,000 unit 02/10/18 16:00 02/17/18 09:08 Heparin SQ 5,000 unit Q8HR KARINA Administration Ceftriaxone Sodium 2,000 mg/ 100 mls @ 100 mls/hr 02/11/18 17:00 02/16/18 16: 11 Sodium Chloride IVPB 100 mls/hr Q24H KARINA Administration Insulin Aspart 0 unit 02/10/18 07:30 02/17/18 06:43 Novolog SQ Not Given ACHS [facility] Protocol Isosorbide Mononitrate 60 mg 02/10/18 09:00 02/17/18 09:43 Imdur PO 60 mg DAILY KARINA Administration Loratadine 10 mg 02/11/18 09:00 02/17/18 09:45 Claritin PO 10 mg DAILY KARINA Administration Losartan Potassium 50 mg 02/10/18 09:00 02/17/18 09:45 Cozaar PO 50 mg DAILY [facility] Administration Methylprednisolone Sodium Succinate 40 mg 02/14/18 00:00 02/17/18 09:16 Solu-Medrol IV 40 mg Q8HR KARINA Administration Metoprolol Tartrate 25 mg 02/10/18 09:00 02/17/18 09:46 Lopressor PO 25 mg BID [facility] Administration Morphine Sulfate 4 mg 02/09/18 21:57 02/17/18 07:43 Morphine Sulfate (Inj) IV 4 mg Q4HR PRN Administration Severe Pain Naloxone HCl 0.2 mg 02/09/18 21:57 Narcan IV Q2M PRN Opioid Reversal Nystatin 1 applic 02/10/18 21:00 02/17/18 09:15 Mycostatin Powder TOPICAL 1 applic BID KARINA Administration Ondansetron HCl 4 mg 02/09/18 21:57 02/16/18 16:01 Zofran IVP 4 mg Q8HR PRN Administration Nausea And Vomiting Oxycodone/Acetaminophen 1 each 02/10/18 14:37 02/17/18 10:15 Percocet 7.5-325 PO 1 each Q4HR PRN Administration MODERATE Pain Senna 8.6 mg 02/14/18 10:56 02/14/18 11:56 Senokot PO 8.6 mg BID PRN Administration Constipation Intake and Output 02/16/18 02/17/18 02/17/18 22:59 06:59 14:59 Intake Total 554 274 800 Output Total 1400 1000 450 Balance -846 -726 350 Intake: IV 100 cefTRIAXone 2,000 mg In 100 Sodium Chloride 0.9% 100 ml @ 100 mls/hr IVPB Q24H [facility] Rx#:[id number] Oral 454 274 800 Output: Urine 1400 1000 450 Other: Voiding Method Toilet Toilet Toilet Urinal Urinal Urinal # Voids 1 1 1 Weight 169.1 kg 02/17/18 05:35 02/17/18 05:35 Assessment and Plan Assessment: #1 COPD with respiratory failure #2 history of chronic diastolic congestive heart failure #3 history of permanent pacemaker, functioning normally #4 SVT and PAT, per pacemaker interrogation #5 morbid obesity #6. History of CAD with stent placements in the past, details unknown to me at this time Plan: From cardiology perspective, patient's pacemaker is functioning normally. Patient does not have an AICD. We'll obtain a 2-D echo with Doppler to assess LV systolic function. Discussed with patient in detail importance of regular follow-up. We will increase the patient's metoprolol. Follow-up the patient in the office in about 2 weeks. He will be seen at that time and the device clinic as well. We will set him up with remote monitoring for his pacemaker. [employer] note has been reviewed, I agree with a documented findings and plan of care. Patient was seen and examined.
[2018-02-17] MEDS: AZITHROMYCIN 500 MG TAB PO SCH (15:28)
[2018-02-17] MEDS: cefTRIAXone 2,000 MG in SODIUM CHLORIDE 0.9% 100 ML IVPB SCH (16:25)
[2018-02-17 16:57] LABS: Glucose,Whole Blood 146 mg/dL (75-99)
[2018-02-17 20:49] LABS: Glucose,Whole Blood 162 mg/dL (75-99)
[2018-02-17] MEDS: METOPROLOL TARTRATE 50 MG TAB PO SCH (21:05)
[2018-02-18] MEDS: cloNIDine HCL 0.2 MG TAB PO SCH ×4 (00:41→23:12)
[2018-02-18] MEDS: methylPREDNISolone SOD SUCCI 40 MG/ML 1 ML VIAL IV SCH ×4 (00:41→23:11)
[2018-02-18] MEDS: IPRATROPIUM-ALBUTEROL 3 ML NEB INHALATION SCH ×6 (06:05→22:52)
[2018-02-18 06:15] LABS: Glucose,Whole Blood 147 mg/dL (75-99)
[2018-02-18] MEDS: INSULIN ASPART 100 UNIT/ML 1 ML 10 ML VIAL SQ SCH ×4 (06:33→20:59)
[2018-02-18] MEDS: MORPHINE SULFATE 4 MG/ML SYRINGE IV PRN ×4 (06:33→20:59)
[2018-02-18] MEDS: HEPARIN SODIUM,PORCINE 5,000 UNIT/ML 1 ML VIAL SQ SCH ×3 (07:33→23:11)
[2018-02-18] MEDS: ASPIRIN 325 MG TAB PO SCH (07:33)
[2018-02-18] MEDS: CLOPIDOGREL 75 MG TAB PO SCH (07:34)
[2018-02-18] MEDS: ATORVASTATIN 40 MG TAB PO SCH (07:34)
[2018-02-18] MEDS: METOPROLOL TARTRATE 50 MG TAB PO SCH ×2 (07:34→20:59)
[2018-02-18] MEDS: LORATADINE 10 MG TAB PO SCH (07:34)
[2018-02-18] MEDS: FAMOTIDINE 20 MG TAB PO SCH ×2 (07:34→20:58)
[2018-02-18] MEDS: guaiFENesin 600 MG TABLET.ER PO SCH ×2 (07:35→20:58)
[2018-02-18] MEDS: CLOTRIMAZOLE 1% CREAM 15 GM TUBE TOPICAL SCH ×2 (07:35→20:58)
[2018-02-18] MEDS: LOSARTAN 50 MG TAB PO SCH (07:35)
[2018-02-18] MEDS: ISOSORBIDE MONONITRATE ER 60 MG TAB.ER.24H PO SCH (07:35)
[2018-02-18] MEDS: FUROSEMIDE 40 MG TAB PO SCH (07:35)
--- NOTE | 2018-02-18 07:50 | ECHOF ---
Referral Reason:Assess LVF, pacemaker MEASUREMENTS -------- HEIGHT: 182.9 cm WEIGHT: 168.7 kg BP: 113/76 RVIDd: 2.8 cm (< 3.3) IVSd: 1.7 cm (0.6 - 1.1) LVIDd: 5.6 cm (3.9 - 5.3) LVPWd: 1.7 cm (0.6 - 1.1) IVSs: 2.1 cm LVIDs: 4.2 cm LVPWs: 2.5 cm LA Diam: 3.1 cm (2.7 - 3.8) Ao Diam: 4.2 cm (2.0 - 3.7) AV Cusp: 2.2 cm (1.5 - 2.6) MV EXCURSION: 16.074 mm (> 18.000) MV EF SLOPE: 72 mm/s (70 - 150) EPSS: 1.7 cm MV E Maico: 0.43 m/s MV DecT: 384 ms MV A Maico: 0.55 m/s MV E/A Ratio: 0.79 FINDINGS -------- Sinus rhythm. This was a technically difficult study with suboptimal views. The left ventricular size is normal. There is moderate concentric left ventricular hypertrophy. O verall left ventricular systolic function is low-normal with, an EF between 50 - 55 %. The right ventricle is normal in size. The left atrium is mildly dilated. The right atrium is normal in size. 5.0mg OF Lumason UTLIZED: 2 OR MORE WALL SEGMENTS NOT VISUALIZED. Aortic valve is trileaflet and is mildly thickened. The mitral valve is normal. The tricuspid valve appears structurally normal. There is no pulmonic regurgitation present. The aortic root is dilated measuring 4.2cm. Normal inferior vena cava with normal inspiratory collapse consistent with estimated right atrial pre ssure of 5 mmHg. The inferior vena cava is mildly dilated. There is no pericardial effusion. CONCLUSIONS -------- 1. Sinus rhythm. 2. This was a technically difficult study with suboptimal views. 3. The left ventricular size is normal. 4. The right ventricle is normal in size. 5. The left atrium is mildly dilated. 6. The right atrium is normal in size. 7. 5.0mg OF Lumason UTLIZED: 2 OR MORE WALL SEGMENTS NOT VISUALIZED. 8. Aortic valve is trileaflet and is mildly thickened. 9. The mitral valve is normal. 10. The tricuspid valve appears structurally normal. 11. There is no pulmonic regurgitation present. 12. The aortic root is dilated measuring 4.2cm. 13. Normal inferior vena cava with normal inspiratory collapse consistent with estimated right atrial pressure of 5 mmHg. 14. The inferior vena cava is mildly dilated. 15. There is no pericardial effusion. MANUAL QA TESTER: Kerrie Kumar RDCS
[2018-02-18] MEDS: BUDESONIDE 1 MG/2 ML NEBU INHALATION SCH ×2 (08:14→20:21)
[2018-02-18] MEDS: FORMOTEROL FUMARATE 20 MCG/2 ML NEBU INHALATION SCH ×2 (08:14→20:21)
[2018-02-18] MEDS: CHOLECALCIFEROL 1,000 UNIT TAB PO SCH (10:14)
[2018-02-18] MEDS: oxyCODONE-APAP 7.5-325MG 1 EACH TAB PO PRN ×2 (10:14→14:26)
[2018-02-18] MEDS: NYSTATIN 100,000 UNIT/GM POWD 15 GM TOPICAL SCH ×2 (10:15→20:59)
[2018-02-18 11:32] LABS: Anion Gap 11 mmol/L; Blood Urea Nitrogen 37 mg/dL (9-20); Calcium 9.2 mg/dL (8.4-10.2); Carbon Dioxide 32 mmol/L (22-30); Chloride 93 mmol/L (98-107); Glucose 141 mg/dL (74-99); Potassium 5.2 mmol/L (3.5-5.1); Sodium 136 mmol/L (137-145)
[2018-02-18 12:08] LABS: Glucose,Whole Blood 103 mg/dL (75-99)
--- NOTE | 2018-02-18 12:25 | P.PN ---
Subjective Progress Note Date: 02/18/18 This is a 62-year-old gentleman with history of COPD was admitted with increasing shortness of breath. Known to have diastolic CHF. Patient also had a permanent pacemaker implantation. It appears that patient doesn't follow regularly for pacemaker checkups. It was felt that patient may have had a ACD but in fact patient has only permanent pacemaker. This was evaluated yesterday. The patient seemed to be clinically stable. He is being treated with steroids. Exacerbation of COPD. Overall his clinical status is stable. He will be followed as an outpatient Objective - Vital Signs Vital signs: Vital Signs Temp 97.3 F L 02/18/18 12:00 Pulse 62 02/18/18 12:00 Resp 18 02/18/18 12:00 BP 105/62 02/18/18 12:00 Pulse Ox 96 02/18/18 12:00 Intake & Output 02/17/18 02/18/18 02/18/18 18:59 06:59 18:59 Intake Total 1100 1800 1020 Output Total 900 Balance 200 1800 1020 Weight 170.45 kg Intake: IV 100 cefTRIAXone 2,000 mg In 100 Sodium Chloride 0.9% 100 ml @ 100 mls/hr IVPB Q24H [facility] Rx#:[id number] Oral 1000 1800 1020 Output: Urine 900 Other: Voiding Method Toilet Toilet Toilet Urinal Urinal Urinal # Voids 1 2 1 - Exam GENERAL EXAM: Patient is alert and oriented and doesn't appear to be in any acute distress HEENT: Normocephalic. Normal reaction of pupils, equal size, normal range of extraocular motion. No erythema or exudates in the throat. NECK: No masses, no nuchal rigidity. CHEST: No chest wall deformity. LUNGS: Bilateral rhonchi and wheezing HEART: S1 and S2 normal with no audible mumurs or gallops. Regular rhythm, femorals equal on both sides.. ABDOMEN: No hepatosplenomegaly, normal bowel sounds, no guarding or rigidity. SKIN: No rashes CENTRAL NERVOUS SYSTEM: No focal deficits. EXTREMITIES: No cyanosis, clubbing or edema. - Labs CBC & Chem 7: 02/17/18 05:35 02/18/18 10:50 Labs: Abnormal Lab Results - Last 24 Hours (Table) 02/17/18 02/17/18 02/18/18 Range/Units 16:51 20:48 06:14 Sodium (137-145) mmol/L Potassium (3.5-5.1) mmol/L Chloride (98-107) mmol/L Carbon Dioxide (22-30) mmol/L BUN (9-20) mg/dL Glucose (74-99) mg/dL POC Glucose (mg/dL) 146 H 162 H 147 H (75-99) mg/dL 02/18/18 02/18/18 Range/Units 10:50 12:07 Sodium 136 L (137-145) mmol/L Potassium 5.2 H (3.5-5.1) mmol/L Chloride 93 L (98-107) mmol/L Carbon Dioxide 32 H (22-30) mmol/L BUN 37 H (9-20) mg/dL Glucose 141 H (74-99) mg/dL POC Glucose (mg/dL) 103 H (75-99) mg/dL Assessment and Plan (1) Presence of permanent cardiac pacemaker Current Visit: Yes Status: Acute Code(s): Z95.0 - PRESENCE OF CARDIAC PACEMAKER SNOMED Code(s): 955818772 (2) Acute exacerbation of chronic obstructive airways disease Current Visit: Yes Status: Acute Code(s): J44.1 - CHRONIC OBSTRUCTIVE PULMONARY DISEASE W (ACUTE) EXACERBATION SNOMED Code(s): 807825250 (3) Diastolic CHF Current Visit: Yes Status: Acute Code(s): I50.30 - UNSPECIFIED DIASTOLIC ( CONGESTIVE) HEART FAILURE SNOMED Code(s): 922718056 Plan: Patient seemed to be progressively getting better. Pacemaker function normally. Continue current medical therapy. Follow up as an outpatient
--- NOTE | 2018-02-18 13:31 | P.PN ---
Subjective Progress Note Date: 02/18/18 Principal diagnosis: Acute on chronic hypoxic respiratory failure secondary to an acute exacerbation of chronic obstructive pulmonary disease. This is a very pleasant 62-year-old gentleman who follows with Dr. Yohan Anna as his primary care provider. He has a history of morbid obesity with obesity/hypoventilation syndrome/obstructive sleep apnea, cor pulmonale, coronary artery disease with previous stent placements 4, AICD placement secondary to ischemic cardio myopathy in 2012, diastolic congestive heart failure, osteoarthritis, CVA in 2004, chronic back pain secondary to degenerative disc disease, spinal cord stenosis. The patient also has chronic obstructive pulmonary disease and chronic and ongoing tobacco dependence. He is on Breo and DuoNeb in the outpatient setting. He presented here to the emergency room yesterday after a 2-3 day progressive worsening shortness of breath and increased swelling of his lower extremities. His chest x-ray shows no active cardiopulmonary disease. White count 9.5. Hemoglobin 14.6. Creatinine 0.85. ProBNP is 243. He has been utilizing the BiPAP 12/5 and 40% FiO2. He is seen today in consultation on the selective care unit. He is awake and alert in no acute distress. He is still dyspneic with minimal exertion. Still with bronchospasm and wheezing. He has been initiated on bronchodilators and IV Solu-Medrol. On 02/12/2018 patient seen in follow-up. Lung sounds reveal diffuse wheezes, and rhonchi, patient remains on BiPAP, he is tolerating well, he states he is more comfortable on that right now. awake and alert in no acute distress. Still with bronchospasm and wheezing. He is able to bring up some sputum. Afebrile, vital signs are stable. His chest x-ray has been reviewed, shows mild cardiomegaly. Acute pulmonary process. Continue current medical treatment , continue nebulized bronchodilators, diuretics, antibiotics and steroids. Reevaluated today on 02/13/2018, feeling better, breathing easier, patient is responding well to bronchodilators, he has BiPAP available at bedside, and he is using it at night when he sleeps. Patient is known to have history of obstructive sleep apnea and he has his own BiPAP at home. At any rate patient is breathing easier, he is also known to have history of cardiomyopathy and LV dysfunction, previous AICD placement which was placed for ischemic cardiomyopathy. He had a previous CVA in 2004. Labs from today were reviewed, his CBC is relatively normal, bicarb is 40 which implied that the patient had chronic hypercapnic respiratory failure for a long period of time with metabolic compensation. The patient is seen again today 2017 in follow-up on the selective care unit. He is awake and alert in no acute distress. He is breathing a bit easier today as compared to yesterday. Still utilizing the BiPAP in the evenings and during the day while resting. Otherwise he is maintaining O2 saturations in the mid 90s on 3 L/m per nasal cannula. He is currently afebrile. Hemodynamically stable. White count 11.2. Hemoglobin 13.9. Creatinine 0.92. The patient is seen again today 02/15/2018 in follow-up on the selective care unit. He is currently sitting up in a chair at the bedside. He is awake and alert in no acute distress. He continues with a productive cough of clear sputum. He is alternating between the BiPAP and 3 L/m per nasal cannula and maintaining O2 saturations in the 90s. He is afebrile. White count 9.5. Hemoglobin 14.7. Creatinine 0.90. He is continued on IV diuretics. He is also on antibiotics in the form of ceftriaxone and azithromycin. Continued on bronchodilators and IV Solu-Medrol. He has been slow to progress. The patient is seen again today 02/16/2018 in follow-up on the selective care unit. He is awake and alert in no acute distress. Sitting up in a chair at the bedside. He continues with a loose productive cough. No chills or night sweats. Continue good O2 saturations in the upper 90s on 2 L/m per nasal cannula. He is currently afebrile. Hemodynamically stable. Blood, urine and sputum cultures all reveal no growth. He remains on ceftriaxone and azithromycin. The patient is seen again today 02/17/2018 in follow-up on the selective care unit. He is currently sitting up in a chair at the bedside. He is awake and alert in no acute distress. He is finally feeling quite a bit better. He is less bronchospastic and wheezy. He is less coughing. He feels he is nearly back to his baseline. He had declined to have a bronchoscopy with BAL today. He is maintaining good O2 saturations in the mid 90s on 2 L/m per nasal cannula. He remains afebrile. White count 15.0. Hemoglobin 15.2. Creatinine 0.84. Remains on ceftriaxone and azithromycin. Continued on bronchodilators and IV Solu-Medrol. The patient is seen again today 02/18/2018 in follow-up on the selective care unit. He is awake and alert in no acute distress. He is doing better today as compared to yesterday. Continues to progress well now. Less short of breath. Less coughing. Last chest tightness and wheezing. He is maintaining good O2 saturations in the 90s on 2 L/m per nasal cannula. Blood, urine and sputum cultures were negative. Objective - Vital Signs Vital signs: Vital Signs Temp 97.3 F L 02/18/18 12:00 Pulse 60 02/18/18 13:17 Resp 18 02/18/18 12:00 BP 105/62 02/18/18 12:00 Pulse Ox 96 02/18/18 12:00 Intake & Output 02/17/18 02/18/18 02/18/18 18:59 06:59 18:59 Intake Total 1100 1800 1020 Output Total 900 Balance 200 1800 1020 Weight 170.45 kg Intake: IV 100 cefTRIAXone 2,000 mg In 100 Sodium Chloride 0.9% 100 ml @ 100 mls/hr IVPB Q24H [facility] Rx#:[id number] Oral 1000 1800 1020 Output: Urine 900 Other: Voiding Method Toilet Toilet Toilet Urinal Urinal Urinal # Voids 1 2 1 - Exam - Constitutional General appearance: morbidly obese male in no acute distress. - EENT Eyes: EOMI, PERRLA ENT: hearing grossly normal Ears: bilateral: normal - Neck Neck: normal ROM Carotids: bilateral: upstroke normal Thyroid: bilateral: normal size - Respiratory Respiratory: bilateral: Faint end expiratory wheeze, diminished - Cardiovascular Rhythm: regular Heart sounds: normal: S1, S2 - Gastrointestinal General gastrointestinal: normal bowel sounds - Integumentary Integumentary: normal turgor - Neurologic Neurologic: CNII-XII intact - Musculoskeletal Musculoskeletal: generalized weakness - Psychiatric Psychiatric: A&O x's 3, appropriate affect, intact judgment & insight - Labs CBC & Chem 7: 02/17/18 05:35 02/18/18 10:50 Labs: Abnormal Lab Results - Last 24 Hours (Table) 02/17/18 02/17/18 02/18/18 Range/Units 16:51 20:48 06:14 Sodium (137-145) mmol/L Potassium (3.5-5.1) mmol/L Chloride (98-107) mmol/L Carbon Dioxide (22-30) mmol/L BUN (9-20) mg/dL Glucose (74-99) mg/dL POC Glucose (mg/dL) 146 H 162 H 147 H (75-99) mg/dL 02/18/18 02/18/18 Range/Units 10:50 12:07 Sodium 136 L (137-145) mmol/L Potassium 5.2 H (3.5-5.1) mmol/L Chloride 93 L (98-107) mmol/L Carbon Dioxide 32 H (22-30) mmol/L BUN 37 H (9-20) mg/dL Glucose 141 H (74-99) mg/dL POC Glucose (mg/dL) 103 H (75-99) mg/dL Assessment and Plan Assessment: Impression: #1 Acute on chronic hypoxic respiratory failure secondary to an acute exacerbation of chronic obstructive pulmonary disease. Maintaining good O2 saturations in the 90s on 2 L/m per nasal cannula. #2 Acute on chronic hypercapnic respiratory failure secondary to above. #3 Morbid obesity with obesity/hypoventilation syndrome/obstructive sleep apnea. Utilizing CPAP in the outpatient setting. #4 Chronic and ongoing tobacco dependence. #5 Coronary artery disease with previous stent placement 4. #6 Ischemic cardiomyopathy status post AICD placement in 2012. #7 History of CVA 2004. #8 Hypertension. #9 Hyperlipidemia. #10 Chronic low back pain. #11 Diverticular disease. Plan: The patient was seen and evaluated by Dr. Rey. We'll continue with the current treatment plan. Increase his activity as tolerated. We'll continue to follow. I, the cosigning physician, performed a history & physical examination of the patient. Lungs sounds faint end expiratory wheeze. Maintaining good O2 saturations in the 90s on 2 L/m per nasal cannula. I discussed the assessment and plan of care with my nurse practitioner, Piper Albarado. I attest to the above note as dictated by her.
[2018-02-18 16:33] LABS: Glucose,Whole Blood 141 mg/dL (75-99)
[2018-02-18] MEDS: AZITHROMYCIN 500 MG TAB PO SCH (16:35)
[2018-02-18] MEDS: cefTRIAXone 2,000 MG in SODIUM CHLORIDE 0.9% 100 ML IVPB SCH (16:35)
[2018-02-18 20:32] LABS: Glucose,Whole Blood 181 mg/dL (75-99)
[2018-02-19] MEDS: IPRATROPIUM-ALBUTEROL 3 ML NEB INHALATION SCH ×5 (03:37→19:25)
[2018-02-19] MEDS: MORPHINE SULFATE 4 MG/ML SYRINGE IV PRN ×4 (04:02→20:41)
[2018-02-19 05:55] LABS: Glucose,Whole Blood 162 mg/dL (75-99)
[2018-02-19] MEDS: INSULIN ASPART 100 UNIT/ML 1 ML 10 ML VIAL SQ SCH ×4 (06:02→21:36)
[2018-02-19] MEDS: oxyCODONE-APAP 7.5-325MG 1 EACH TAB PO PRN ×3 (06:03→16:53)
[2018-02-19] MEDS: FORMOTEROL FUMARATE 20 MCG/2 ML NEBU INHALATION SCH ×2 (07:46→19:25)
[2018-02-19] MEDS: BUDESONIDE 1 MG/2 ML NEBU INHALATION SCH ×2 (07:46→19:25)
[2018-02-19] MEDS: METOPROLOL TARTRATE 50 MG TAB PO SCH ×2 (08:28→20:44)
[2018-02-19] MEDS: ASPIRIN 325 MG TAB PO SCH (08:28)
[2018-02-19] MEDS: HEPARIN SODIUM,PORCINE 5,000 UNIT/ML 1 ML VIAL SQ SCH ×3 (08:28→23:22)
[2018-02-19] MEDS: CLOTRIMAZOLE 1% CREAM 15 GM TUBE TOPICAL SCH ×2 (08:28→20:44)
[2018-02-19] MEDS: cloNIDine HCL 0.2 MG TAB PO SCH ×3 (08:28→23:22)
[2018-02-19] MEDS: methylPREDNISolone SOD SUCCI 40 MG/ML 1 ML VIAL IV SCH ×3 (08:28→23:22)
[2018-02-19] MEDS: FUROSEMIDE 40 MG TAB PO SCH (08:29)
[2018-02-19] MEDS: LORATADINE 10 MG TAB PO SCH (08:29)
[2018-02-19] MEDS: CHOLECALCIFEROL 1,000 UNIT TAB PO SCH (08:29)
[2018-02-19] MEDS: ATORVASTATIN 40 MG TAB PO SCH (08:29)
[2018-02-19] MEDS: CLOPIDOGREL 75 MG TAB PO SCH (08:29)
[2018-02-19] MEDS: guaiFENesin 600 MG TABLET.ER PO SCH ×2 (08:29→20:44)
[2018-02-19] MEDS: ISOSORBIDE MONONITRATE ER 60 MG TAB.ER.24H PO SCH (08:29)
[2018-02-19] MEDS: FAMOTIDINE 20 MG TAB PO SCH ×2 (08:29→20:44)
[2018-02-19] MEDS: NYSTATIN 100,000 UNIT/GM POWD 15 GM TOPICAL SCH ×2 (08:30→21:38)
[2018-02-19] MEDS: LOSARTAN 50 MG TAB PO SCH (08:30)
[2018-02-19 11:43] LABS: Glucose,Whole Blood 162 mg/dL (75-99)
--- NOTE | 2018-02-19 11:58 | P.PN ---
Subjective Progress Note Date: 02/19/18 Principal diagnosis: Acute on chronic hypoxic respiratory failure secondary to COPD exacerbation, morbid obesity, obesity, hypoventilation syndrome. This is a very pleasant 62-year-old gentleman who follows with Dr. Yohan Anna as his primary care provider. He has a history of morbid obesity with obesity/hypoventilation syndrome/obstructive sleep apnea, cor pulmonale, coronary artery disease with previous stent placements 4, AICD placement secondary to ischemic cardio myopathy in 2012, diastolic congestive heart failure, osteoarthritis, CVA in 2004, chronic back pain secondary to degenerative disc disease, spinal cord stenosis. The patient also has chronic obstructive pulmonary disease and chronic and ongoing tobacco dependence. He is on Breo and DuoNeb in the outpatient setting. He presented here to the emergency room yesterday after a 2-3 day progressive worsening shortness of breath and increased swelling of his lower extremities. His chest x-ray shows no active cardiopulmonary disease. White count 9.5. Hemoglobin 14.6. Creatinine 0.85. ProBNP is 243. He has been utilizing the BiPAP 12/5 and 40% FiO2. He is seen today in consultation on the selective is having a hard time bringing up phlegm. On 02/12/2018 patient seen in follow-up. Lung sounds reveal diffuse wheezes, and rhonchi, patient remains on BiPAP, he is tolerating well, he states he is more comfortable on that right now. awake and alert in no acute distress. Still with bronchospasm and wheezing. He is able to bring up some sputum. Afebrile, vital signs are stable. His chest x-ray has been reviewed, shows mild cardiomegaly. Acute pulmonary process. Continue current medical treatment , continue nebulized bronchodilators, diuretics, antibiotics and steroids. Reevaluated today on 02/13/2018, feeling better, breathing easier, patient is responding well to bronchodilators, he has BiPAP available at bedside, and he is using it at night when he sleeps. Patient is known to have history of obstructive sleep apnea and he has his own BiPAP at home. At any rate patient is breathing easier, he is also known to have history of cardiomyopathy and LV dysfunction, previous AICD placement which was placed for ischemic cardiomyopathy. He had a previous CVA in 2004. Labs from today were reviewed, his CBC is relatively normal, bicarb is 40 which implied that the patient had chronic hypercapnic respiratory failure for a long period of time with metabolic compensation. On 02/19/2018, patient is feeling better, less cough and less wheezing less shortness of breath, refused bronchoscopy which I have recommended few days ago. He was actually placed on the schedule for bronchoscopy, and that was supposed to be Tuesday at known, however the patient declined and decided against having bronchoscopy. Remains on bronchodilators steroids and antibiotics, gradually getting better, has BiPAP at bedside and he is using it at night. Objective - Vital Signs Vital signs: Vital Signs Temp 97.6 F 02/19/18 11:42 Pulse 72 02/19/18 11:42 Resp 18 02/19/18 11:42 BP 125/71 02/19/18 11:42 Pulse Ox 93 L 02/19/18 11:42 Intake & Output 02/18/18 02/19/18 02/19/18 18:59 06:59 18:59 Intake Total 1482 300 300 Output Total 700 400 700 Balance 782 -100 -400 Weight 170.45 kg 171.6 kg Intake: Oral 1482 300 300 Output: Urine 700 400 400 Stool 300 Other: Voiding Method Toilet Toilet Toilet Urinal Urinal Urinal # Voids 1 1 1 # Bowel Movements 1 - Exam Physical ExamOlen revealed a 62-year-old white male, morbidly obese, in no distress. Head: Atraumatic, normocephalic. HEENT:[Neck is supple.] [No neck masses.] [No thyromegaly.] [No JVD.]short obese neck, PERRLA, EOMI, no thyromegaly, no cervical lymphadenopathy. Chest: [Clear throughout,rhonchi noted on forced expiratory maneuver bilaterally.symmetrical chest expansion, no chest wall tenderness Cardiac Exam: [distant S1 and S2., no S3 gallop, no murmur.] Abdomen: [morbidly obese,Soft, nontender, no megaly, no rebound, no guarding, normal bowel sounds.] Extremities: [No clubbing, no edema, no cyanosis.] Neurological Exam: [No focal neurologic deficit. lymphatics: No lymphadenopathy. Accuretic: Normal mood, affect and mental status examination.] - - Labs CBC & Chem 7: 02/17/18 05:35 02/18/18 10:50 Labs: Abnormal Lab Results - Last 24 Hours (Table) 02/18/18 02/18/18 02/18/18 Range/Units 12:07 16:27 20:30 POC Glucose (mg/dL) 103 H 141 H 181 H (75-99) mg/dL 02/19/18 02/19/18 Range/Units 05:54 11:36 POC Glucose (mg/dL) 162 H 162 H (75-99) mg/dL Assessment and Plan Assessment: impression: 1 acute on chronic hypoxic and hypercapnic respiratory failure secondary to COPD exacerbation,continue BiPAP at night and as needed. 2Morbid obesity with obesity/hypoventilation syndrome 3 multiple comorbidities including chronic tobacco dependence, coronary artery disease and previous stent placement, ischemic cardiomyopathy and LV dysfunction , previous AICD placement, previous CVA, hypertension, diverticular disease, chronic low back pain. Recommendation: Continue present treatment plan including bronchodilators, antibiotics, BiPAP, consider discharge planning in the next 24-48 hours. Will need outpatient follow-up post discharge for certain. Time with Patient: Less than 30
--- NOTE | 2018-02-19 12:40 | P.PN ---
Subjective Progress Note Date: 02/19/18 This is a 62-year-old gentleman with history of COPD was admitted with increasing shortness of breath. Known to have diastolic CHF. Patient also had a permanent pacemaker implantation. It appears that patient doesn't follow regularly for pacemaker checkups. It was felt that patient may have had a ACD but in fact patient has only permanent pacemaker. This was evaluated yesterday. The patient seemed to be clinically stable. He is being treated with steroids. Exacerbation of COPD. Overall his clinical status is stable. He will be followed as an outpatient. 02/19/2018. The patient is doing better today. He states his breathing has significantly improved. Continues to have lower extremity edema. He is hemodynamically stable. Denies any chest discomfort, shortness of breath at rest or palpitations. Objective - Vital Signs Vital signs: Vital Signs Temp 97.6 F 02/19/18 11:42 Pulse 60 02/19/18 11:54 Resp 18 02/19/18 11:42 BP 125/71 02/19/18 11:42 Pulse Ox 93 L 02/19/18 11:42 Intake & Output 02/18/18 02/19/18 02/19/18 18:59 06:59 18:59 Intake Total 1482 300 300 Output Total 700 400 700 Balance 782 -100 -400 Weight 170.45 kg 171.6 kg Intake: Oral 1482 300 300 Output: Urine 700 400 400 Stool 300 Other: Voiding Method Toilet Toilet Toilet Urinal Urinal Urinal # Voids 1 1 1 # Bowel Movements 1 - Exam GENERAL EXAM: Patient is alert and oriented and doesn't appear to be in any acute distress HEENT: Normocephalic. Normal reaction of pupils, equal size, normal range of extraocular motion. No erythema or exudates in the throat. NECK: No masses, no nuchal rigidity. CHEST: No chest wall deformity. LUNGS: Bilateral rhonchi and wheezing HEART: S1 and S2 normal with no audible mumurs or gallops. Regular rhythm, femorals equal on both sides.. ABDOMEN: No hepatosplenomegaly, normal bowel sounds, no guarding or rigidity. SKIN: No rashes CENTRAL NERVOUS SYSTEM: No focal deficits. EXTREMITIES: No cyanosis, 2+ lower extremity edema with bilateral Curlex wraps. - Labs CBC & Chem 7: 02/17/18 05:35 02/18/18 10:50 Labs: Abnormal Lab Results - Last 24 Hours (Table) 02/18/18 02/18/18 02/19/18 Range/Units 16:27 20:30 05:54 POC Glucose (mg/dL) 141 H 181 H 162 H (75-99) mg/dL 02/19/18 Range/Units 11:36 POC Glucose (mg/dL) 162 H (75-99) mg/dL Assessment and Plan Assessment: #1 COPD with respiratory failure #2 history of chronic diastolic congestive heart failure #3 history of permanent pacemaker, functioning normally #4 SVT and PAT, per pacemaker interrogation #5 morbid obesity #6. History of CAD with stent placements in the past, details unknown to me at this time Plan: Continue with current medication regimen. Strict I&O and daily weights. It was discussed with the patient in great detail the importance of regular follow- up. His pacemaker was interrogated and found to be functioning normally. The patient can follow-up in the office in 2 weeks postdischarge. No further recommendations at this time.
--- NOTE | 2018-02-19 15:19 | P.PN ---
Subjective Progress Note Date: 02/17/18 Principal diagnosis: Acute on chronic hypoxic respiratory failure secondary to COPD exacerbation Patient is a 62-year-old male with a known history of morbid obesity, obesity hypoventilation syndrome, obstructive sleep apnea, cor pulmonale, coronary artery disease with history of stent placement 4, AICD placement secondary to ischemic cardiomyopathy in 2012, Diastolic heart failure, Osteoarthritis, CVA in 2004, chronic back pain secondary to degenerative disc disease, spinal cord stenosis was admitted to the hospital with worsening shortness of breath progressively over the past 2-3 days prior to admission. Chest x-ray showed no acute cardiopulmonary process on admission. 02/14/2018. Patient is still having shortness of breath at baseline and at rest. Patient says that his breathing is slightly eased up and was having yellowish sputum production yesterday. No fever no chills. Patient still on BiPAP patient. Patient does use CPAP at home. Patient is being continued on steroids breathing treatments and antibiotics in the form of ceftriaxone and azithromycin. No complaints of chest pain. No nausea vomiting or abdominal pain. Patient does have constipation. Patient is also on chronic narcotic pain medications at home. 02/15/2018 Patient breathing status is slightly improved. Continue history of cough with clear to whitish sputum production. Still complaining of shortness of breath. Currently saturating well on 3 at another cannula and did use BiPAP machine last night. Hemodynamically stable otherwise. Continued antibiotics in the form of ceftriaxone and azithromycin. IV steroids and breathing treatments will be continued. No fever no chills. No nausea vomiting abdominal pain. PTOT was consulted. 02/16/2018 Breathing status is much improved today. Saturating well on nasal cannula. Cough improved as well. No fever no chills. Patient is improving slowly otherwise denied blood cultures showed no growth. Continued on antibiotics IV steroids and breathing treatments. No fever no chills. No other acute overnight issues. 02/17/2018 Currently patient denied any chest pain. Shortness of breath is improving. Feeling better. Still having diffuse rhonchi especially bibasilar lung higgins. Patient declined to get bronchoscopy and pulmonary is following. Currently on O2 by another cannula. Patient is afebrile. No fever no chills. Continued on antibiotics in the form of ceftriaxone and azithromycin. Cough improved as well. All other review of systems negative except the above. Current medications reviewed. Active Medications Generic Name Dose Route Start Last Admin Trade Name Manuel PRN Reason Stop Dose Admin Acetaminophen 650 mg 02/09/18 21:57 Tylenol Tab PO Q6HR PRN Mild Pain or Fever > 100.5 Albuterol Sulfate 2.5 mg 02/09/18 21:59 Ventolin Nebulized INHALATION RT-Q2H PRN Shortness Of Breath Or Wheezing Albuterol/Ipratropium 3 ml 02/10/18 16:00 02/14/18 10:50 Duoneb 0.5 Mg-3 Mg/3 Ml Soln INHALATION 3 ml RT-Q4H KARINA Administration Aspirin 325 mg 02/10/18 09:00 02/14/18 07:55 Aspirin PO 325 mg DAILY [facility] Administration Atorvastatin Calcium 40 mg 02/10/18 09:00 02/14/18 07:55 Lipitor PO 40 mg DAILY [facility] Administration Azithromycin 500 mg 02/13/18 16:00 02/13/18 16:04 Zithromax PO 500 mg DAILY@1600 KARINA Administration Budesonide 1 mg 02/10/18 20:00 02/14/18 07:16 Pulmicort INHALATION 1 mg RT-BID KARINA Administration Cholecalciferol 1,000 unit 02/11/18 09:00 02/14/18 07:55 Vitamin D3 PO 1,000 unit DAILY K[facility]INA Administration Clonidine 0.2 mg 02/10/18 00:00 02/14/18 07:55 Catapres PO 0.2 mg Q8HR K[facility]INA Administration Clopidogrel Bisulfate 75 mg 02/10/18 09:00 02/14/18 07:55 Plavix PO 75 mg DAILY [facility] Administration Clotrimazole 1 applic 02/11/18 12:15 02/14/18 07:58 Lotrimin Cream TOPICAL 1 applic BID [facility]INA Administration Docusate Sodium 100 mg 02/13/18 04:09 02/14/18 11:18 Colace PO 100 mg BID PRN Administration Constipation Famotidine 20 mg 02/10/18 09:00 02/14/18 07:55 Pepcid PO 20 mg BID KARINA Administration Formoterol Fumarate 20 mcg 02/10/18 20:00 02/14/18 07:16 Perforomist INHALATION 20 mcg RT-BID KARINA Administration Furosemide 40 mg 02/10/18 21:00 02/14/18 07:54 Lasix IV 40 mg Q12HR KARINA Administration Heparin Sodium (Porcine) 5,000 unit 02/10/18 16:00 02/14/18 07:54 Heparin SQ 5,000 unit Q8HR KAIRNA Administration Ceftriaxone Sodium 2,000 mg/ 100 mls @ 100 mls/hr 02/11/18 17:00 02/13/18 16: 04 Sodium Chloride IVPB 100 mls/hr Q24H KARINA Administration Insulin Aspart 0 unit 02/10/18 07:30 02/14/18 06:30 Novolog SQ 2 unit ACHS KARINA Administration Protocol Isosorbide Mononitrate 60 mg 02/10/18 09:00 02/14/18 07:54 Imdur PO 60 mg DAILY KARINA Administration Loratadine 10 mg 02/11/18 09:00 02/14/18 07:54 Claritin PO 10 mg DAILY KARINA Administration Losartan Potassium 50 mg 02/10/18 09:00 02/14/18 07:55 Cozaar PO 50 mg DAILY KARINA Administration Methylprednisolone Sodium Succinate 40 mg 02/14/18 00:00 02/14/18 07:54 Solu-Medrol IV 40 mg Q8HR KARINA Administration Metoprolol Tartrate 25 mg 02/10/18 09:00 02/14/18 07:55 Lopressor PO 25 mg BID [facility] Administration Morphine Sulfate 4 mg 02/09/18 21:57 02/14/18 07:55 Morphine Sulfate (Inj) IV 4 mg Q4HR PRN Administration Severe Pain Naloxone HCl 0.2 mg 02/09/18 21:57 Narcan IV Q2M PRN Opioid Reversal Nystatin 1 applic 02/10/18 21:00 02/14/18 07:57 Mycostatin Powder TOPICAL 1 applic BID [facility] Administration Ondansetron HCl 4 mg 02/09/18 21:57 Zofran IVP Q8HR PRN Nausea And Vomiting Oxycodone/Acetaminophen 1 each 02/10/18 14:37 02/14/18 11:18 Percocet 7.5-325 PO 1 each Q4HR PRN Administration MODERATE Pain Potassium Chloride 20 meq 02/11/18 09:00 02/14/18 07:54 K-Dur 20 PO 20 meq DAILY [facility]ARINA Administration Senna 8.6 mg 02/14/18 10:56 Senokot PO BID PRN Constipation Objective - Vital Signs Vital signs: Vital Signs Temp 97.5 F L 02/17/18 08:15 Pulse 61 02/17/18 11:24 Resp 18 02/17/18 11:24 BP 113/76 02/17/18 11:24 Pulse Ox 96 02/17/18 11:24 Intake & Output 02/16/18 02/17/18 02/17/18 18:59 06:59 18:59 Intake Total 520 548 800 Output Total 2850 1000 450 Balance -2330 -452 350 Weight 169.1 kg Intake: IV 100 cefTRIAXone 2,000 mg In 100 Sodium Chloride 0.9% 100 ml @ 100 mls/hr IVPB Q24H [facility] Rx#:[id number] Oral 420 548 800 Output: Urine 2850 1000 450 Other: Voiding Method Toilet Toilet Toilet Urinal Urinal Urinal # Voids 1 1 1 # Bowel Movements 1 - Exam PHYSICAL EXAMINATION: Patient is lying in the bed comfortably, no acute distress, awake alert and oriented. Morbidly obese. HEENT: Normocephalic. Neck is supple. Pupils reactive. Nostrils clear. Oral cavity is moist. Ears reveal no drainage. Neck reveals no JVD, carotid bruits, or thyromegaly. CHEST EXAMINATION: Trachea is central. Symmetrical expansion. Bilateral air entry improved. basilar rhonchi and expiratory wheezing. CARDIAC: Normal S1, S2 with no gallops. No murmurs ABDOMEN: Soft. Obese. Bowel sounds normal. No organomegaly. No abdominal bruits. Extremities: 2+ edema. No clubbing or cyanosis Neurologically awake, alert, oriented x3 with well-coordinated movements. No focal deficits noted Skin: No rash or skin lesions. Psychiatric: Coperative. Nonsuicidal Musculoskeletal: No joint swelling or deformity. Normal range of motion. - Labs CBC & Chem 7: 02/17/18 05:35 02/18/18 10:50 Labs: Abnormal Lab Results - Last 24 Hours (Table) 02/16/18 02/16/18 02/16/18 Range/Units 08:29 12:07 17:12 WBC (3.8-10.6) k/uL Neutrophils # (1.3-7.7) k/uL Sodium (137-145) mmol/L Potassium (3.5-5.1) mmol/L Chloride (98-107) mmol/L Carbon Dioxide (22-30) mmol/L BUN (9-20) mg/dL Glucose (74-99) mg/dL POC Glucose (mg/dL) 111 H 129 H (75-99) mg/dL Magnesium 2.4 H (1.6-2.3) mg/dL 02/16/18 02/17/18 02/17/18 Range/Units 20:52 05:35 05:35 WBC 15.0 H (3.8-10.6) k/uL Neutrophils # 12.4 H (1.3-7.7) k/uL Sodium 134 L (137-145) mmol/L Potassium 5.5 H (3.5-5.1) mmol/L Chloride 93 L (98-107) mmol/L Carbon Dioxide 33 H (22-30) mmol/L BUN 40 H (9-20) mg/dL Glucose 134 H (74-99) mg/dL POC Glucose (mg/dL) 187 H (75-99) mg/dL Magnesium (1.6-2.3) mg/dL 02/17/18 Range/Units 05:38 WBC (3.8-10.6) k/uL Neutrophils # (1.3-7.7) k/uL Sodium (137-145) mmol/L Potassium (3.5-5.1) mmol/L Chloride (98-107) mmol/L Carbon Dioxide (22-30) mmol/L BUN (9-20) mg/dL Glucose (74-99) mg/dL POC Glucose (mg/dL) 127 H (75-99) mg/dL Magnesium (1.6-2.3) mg/dL Assessment and Plan Assessment: Acute on chronic hypoxic respiratory failure secondary to COPD exacerbation Acute COPD exacerbation requiring BiPAP now Morbid obesity, obesity hypoventilation syndrome and obstructive sleep apnea Ongoing nicotine dependence Coronary artery disease with history of stent placement 4 Ischemic cardiopathy status post AICD placement in 2013 History of CVA in 2004 Hypertension Hyperlipidemia Chronic back pain and spinal stenosis Diverticular disease Chronic hypoxic respiratory failure on home oxygen DVT prophylaxis with heparin subcu Plan: Patient will be continued on antibiotics, breathing treatments and steroids and BiPAP as needed. Currently the current management and follow closely. PTOT consult and possible rehab transfer once medically stable. Prognosis is guarded with multiple medical problems and comorbid conditions. Further recommendations based on the clinical course. Time with Patient: Greater than 30
--- NOTE | 2018-02-19 15:21 | P.PN ---
Subjective Progress Note Date: 02/18/18 Principal diagnosis: Acute on chronic hypoxic respiratory failure secondary to COPD exacerbation Patient is a 62-year-old male with a known history of morbid obesity, obesity hypoventilation syndrome, obstructive sleep apnea, cor pulmonale, coronary artery disease with history of stent placement 4, AICD placement secondary to ischemic cardiomyopathy in 2012, Diastolic heart failure, Osteoarthritis, CVA in 2004, chronic back pain secondary to degenerative disc disease, spinal cord stenosis was admitted to the hospital with worsening shortness of breath progressively over the past 2-3 days prior to admission. Chest x-ray showed no acute cardiopulmonary process on admission. 02/14/2018. Patient is still having shortness of breath at baseline and at rest. Patient says that his breathing is slightly eased up and was having yellowish sputum production yesterday. No fever no chills. Patient still on BiPAP patient. Patient does use CPAP at home. Patient is being continued on steroids breathing treatments and antibiotics in the form of ceftriaxone and azithromycin. No complaints of chest pain. No nausea vomiting or abdominal pain. Patient does have constipation. Patient is also on chronic narcotic pain medications at home. 02/15/2018 Patient breathing status is slightly improved. Continue history of cough with clear to whitish sputum production. Still complaining of shortness of breath. Currently saturating well on 3 at another cannula and did use BiPAP machine last night. Hemodynamically stable otherwise. Continued antibiotics in the form of ceftriaxone and azithromycin. IV steroids and breathing treatments will be continued. No fever no chills. No nausea vomiting abdominal pain. PTOT was consulted. 02/16/2018 Breathing status is much improved today. Saturating well on nasal cannula. Cough improved as well. No fever no chills. Patient is improving slowly otherwise denied blood cultures showed no growth. Continued on antibiotics IV steroids and breathing treatments. No fever no chills. No other acute overnight issues. 02/17/2018 Currently patient denied any chest pain. Shortness of breath is improving. Feeling better. Still having diffuse rhonchi especially bibasilar lung higgins. Patient declined to get bronchoscopy and pulmonary is following. Currently on O2 by another cannula. Patient is afebrile. No fever no chills. Continued on antibiotics in the form of ceftriaxone and azithromycin. Cough improved as well. 02/18/2018 Patient is sitting in the chair comfortably. No complaints of chest pain. Shortness of breath is improving slowly. Cough improved as well. Saturating well on 2 L nausea cannula. Cultures including blood urine and sputum cultures were negative. Progress slowly otherwise. No other acute overnight issues. Patient was encouraged with participation in physical therapy. All other review of systems negative except the above. Current medications reviewed. Active Medications Generic Name Dose Route Start Last Admin Trade Name Freq PRN Reason Stop Dose Admin Acetaminophen 650 mg 02/09/18 21:57 Tylenol Tab PO Q6HR PRN Mild Pain or Fever > 100.5 Albuterol Sulfate 2.5 mg 02/09/18 21:59 Ventolin Nebulized INHALATION RT-Q2H PRN Shortness Of Breath Or Wheezing Albuterol/Ipratropium 3 ml 02/10/18 16:00 02/14/18 10:50 Duoneb 0.5 Mg-3 Mg/3 Ml Soln INHALATION 3 ml RT-Q4H KARINA Administration Aspirin 325 mg 02/10/18 09:00 02/14/18 07:55 Aspirin PO 325 mg DAILY KARINA Administration Atorvastatin Calcium 40 mg 02/10/18 09:00 02/14/18 07:55 Lipitor PO 40 mg DAILY KARINA Administration Azithromycin 500 mg 02/13/18 16:00 02/13/18 16:04 Zithromax PO 500 mg DAILY@1600 KARINA Administration Budesonide 1 mg 02/10/18 20:00 02/14/18 07:16 Pulmicort INHALATION 1 mg RT-BID KARINA Administration Cholecalciferol 1,000 unit 02/11/18 09:00 02/14/18 07:55 Vitamin D3 PO 1,000 unit DAILY [facility]INA Administration Clonidine 0.2 mg 02/10/18 00:00 02/14/18 07:55 Catapres PO 0.2 mg Q8HR KARINA Administration Clopidogrel Bisulfate 75 mg 02/10/18 09:00 02/14/18 07:55 Plavix PO 75 mg DAILY [facility]INA Administration Clotrimazole 1 applic 02/11/18 12:15 02/14/18 07:58 Lotrimin Cream TOPICAL 1 applic BID [facility]ARINA Administration Docusate Sodium 100 mg 02/13/18 04:09 02/14/18 11:18 Colace PO 100 mg BID PRN Administration Constipation Famotidine 20 mg 02/10/18 09:00 02/14/18 07:55 Pepcid PO 20 mg BID [facility]ARINA Administration Formoterol Fumarate 20 mcg 02/10/18 20:00 02/14/18 07:16 Perforomist INHALATION 20 mcg RT-BID KARINA Administration Furosemide 40 mg 02/10/18 21:00 02/14/18 07:54 Lasix IV 40 mg Q12HR KARINA Administration Heparin Sodium (Porcine) 5,000 unit 02/10/18 16:00 02/14/18 07:54 Heparin SQ 5,000 unit Q8HR KARINA Administration Ceftriaxone Sodium 2,000 mg/ 100 mls @ 100 mls/hr 02/11/18 17:00 02/13/18 16: 04 Sodium Chloride IVPB 100 mls/hr Q24H KARINA Administration Insulin Aspart 0 unit 02/10/18 07:30 02/14/18 06:30 Novolog SQ 2 unit ACHS KARINA Administration Protocol Isosorbide Mononitrate 60 mg 02/10/18 09:00 02/14/18 07:54 Imdur PO 60 mg DAILY KARINA Administration Loratadine 10 mg 02/11/18 09:00 02/14/18 07:54 Claritin PO 10 mg DAILY KARINA Administration Losartan Potassium 50 mg 02/10/18 09:00 02/14/18 07:55 Cozaar PO 50 mg DAILY KARINA Administration Methylprednisolone Sodium Succinate 40 mg 02/14/18 00:00 02/14/18 07:54 Solu-Medrol IV 40 mg Q8HR KARINA Administration Metoprolol Tartrate 25 mg 02/10/18 09:00 02/14/18 07:55 Lopressor PO 25 mg BID [facility] Administration Morphine Sulfate 4 mg 02/09/18 21:57 02/14/18 07:55 Morphine Sulfate (Inj) IV 4 mg Q4HR PRN Administration Severe Pain Naloxone HCl 0.2 mg 02/09/18 21:57 Narcan IV Q2M PRN Opioid Reversal Nystatin 1 applic 02/10/18 21:00 02/14/18 07:57 Mycostatin Powder TOPICAL 1 applic BID [facility]ARINA Administration Ondansetron HCl 4 mg 02/09/18 21:57 Zofran IVP Q8HR PRN Nausea And Vomiting Oxycodone/Acetaminophen 1 each 02/10/18 14:37 02/14/18 11:18 Percocet 7.5-325 PO 1 each Q4HR PRN Administration MODERATE Pain Potassium Chloride 20 meq 02/11/18 09:00 09/18/18 07:54 K-Dur 20 PO 20 meq DAILY KARINA Administration Senna 8.6 mg 02/14/18 10:56 Senokot PO BID PRN Constipation Objective - Vital Signs Vital signs: Vital Signs Temp 97.3 F L 02/18/18 12:00 Pulse 60 02/18/18 13:17 Resp 18 02/18/18 12:00 BP 105/62 02/18/18 12:00 Pulse Ox 96 02/18/18 12:00 Intake & Output 02/17/18 02/18/18 02/18/18 18:59 06:59 18:59 Intake Total 1100 1800 1260 Output Total 900 400 Balance 200 1800 860 Weight 170.45 kg Intake: IV 100 cefTRIAXone 2,000 mg In 100 Sodium Chloride 0.9% 100 ml @ 100 mls/hr IVPB Q24H [facility] Rx#:[id number] Oral 1000 1800 1260 Output: Urine 900 400 Other: Voiding Method Toilet Toilet Toilet Urinal Urinal Urinal # Voids 1 2 1 # Bowel Movements 1 - Exam PHYSICAL EXAMINATION: Patient is lying in the bed comfortably, no acute distress, awake alert and oriented. Morbidly obese. HEENT: Normocephalic. Neck is supple. Pupils reactive. Nostrils clear. Oral cavity is moist. Ears reveal no drainage. Neck reveals no JVD, carotid bruits, or thyromegaly. CHEST EXAMINATION: Trachea is central. Symmetrical expansion. Bilateral air entry improved. basilar rhonchi and expiratory wheezing. CARDIAC: Normal S1, S2 with no gallops. No murmurs ABDOMEN: Soft. Obese. Bowel sounds normal. No organomegaly. No abdominal bruits. Extremities: 2+ edema. No clubbing or cyanosis Neurologically awake, alert, oriented x3 with well-coordinated movements. No focal deficits noted Skin: No rash or skin lesions. Psychiatric: Coperative. Nonsuicidal Musculoskeletal: No joint swelling or deformity. Normal range of motion. - Labs CBC & Chem 7: 02/17/18 05:35 02/18/18 10:50 Labs: Abnormal Lab Results - Last 24 Hours (Table) 02/17/18 02/17/18 02/18/18 Range/Units 16:51 20:48 06:14 Sodium (137-145) mmol/L Potassium (3.5-5.1) mmol/L Chloride (98-107) mmol/L Carbon Dioxide (22-30) mmol/L BUN (9-20) mg/dL Glucose (74-99) mg/dL POC Glucose (mg/dL) 146 H 162 H 147 H (75-99) mg/dL 02/18/18 02/18/18 Range/Units 10:50 12:07 Sodium 136 L (137-145) mmol/L Potassium 5.2 H (3.5-5.1) mmol/L Chloride 93 L (98-107) mmol/L Carbon Dioxide 32 H (22-30) mmol/L BUN 37 H (9-20) mg/dL Glucose 141 H (74-99) mg/dL POC Glucose (mg/dL) 103 H (75-99) mg/dL Assessment and Plan Assessment: Acute on chronic hypoxic respiratory failure secondary to COPD exacerbation Acute COPD exacerbation requiring BiPAP. Currently on nasal cannula. Morbid obesity, obesity hypoventilation syndrome and obstructive sleep apnea Ongoing nicotine dependence Coronary artery disease with history of stent placement 4 Ischemic cardiopathy status post AICD placement in 2012 History of CVA in 2004 Hypertension Hyperlipidemia Chronic back pain and spinal stenosis Diverticular disease Chronic hypoxic respiratory failure on home oxygen DVT prophylaxis with heparin subcu Plan: Patient will be continued on antibiotics, breathing treatments and steroids and BiPAP as needed. Currently the current management and follow closely. PTOT consult and possible rehab transfer once medically stable. Prognosis is guarded with multiple medical problems and comorbid conditions. Further recommendations based on the clinical course. Time with Patient: Greater than 30
--- NOTE | 2018-02-19 15:24 | P.PN ---
Subjective Progress Note Date: 02/19/18 Principal diagnosis: Acute on chronic hypoxic respiratory failure secondary to COPD exacerbation Patient is a 62-year-old male with a known history of morbid obesity, obesity hypoventilation syndrome, obstructive sleep apnea, cor pulmonale, coronary artery disease with history of stent placement 4, AICD placement secondary to ischemic cardiomyopathy in 2012, Diastolic heart failure, Osteoarthritis, CVA in 2004, chronic back pain secondary to degenerative disc disease, spinal cord stenosis was admitted to the hospital with worsening shortness of breath progressively over the past 2-3 days prior to admission. Chest x-ray showed no acute cardiopulmonary process on admission. 02/14/2018. Patient is still having shortness of breath at baseline and at rest. Patient says that his breathing is slightly eased up and was having yellowish sputum production yesterday. No fever no chills. Patient still on BiPAP patient. Patient does use CPAP at home. Patient is being continued on steroids breathing treatments and antibiotics in the form of ceftriaxone and azithromycin. No complaints of chest pain. No nausea vomiting or abdominal pain. Patient does have constipation. Patient is also on chronic narcotic pain medications at home. 02/15/2018 Patient breathing status is slightly improved. Continue history of cough with clear to whitish sputum production. Still complaining of shortness of breath. Currently saturating well on 3 at another cannula and did use BiPAP machine last night. Hemodynamically stable otherwise. Continued antibiotics in the form of ceftriaxone and azithromycin. IV steroids and breathing treatments will be continued. No fever no chills. No nausea vomiting abdominal pain. PTOT was consulted. 02/16/2018 Breathing status is much improved today. Saturating well on nasal cannula. Cough improved as well. No fever no chills. Patient is improving slowly otherwise denied blood cultures showed no growth. Continued on antibiotics IV steroids and breathing treatments. No fever no chills. No other acute overnight issues. 02/17/2018 Currently patient denied any chest pain. Shortness of breath is improving. Feeling better. Still having diffuse rhonchi especially bibasilar lung higgins. Patient declined to get bronchoscopy and pulmonary is following. Currently on O2 by another cannula. Patient is afebrile. No fever no chills. Continued on antibiotics in the form of ceftriaxone and azithromycin. Cough improved as well. 02/18/2018 Patient is sitting in the chair comfortably. No complaints of chest pain. Shortness of breath is improving slowly. Cough improved as well. Saturating well on 2 L nausea cannula. Cultures including blood urine and sputum cultures were negative. Progress slowly otherwise. No other acute overnight issues. Patient was encouraged with participation in physical therapy. 02/19/2018 Patient's breathing status is improving slowly. Patient is being continued on steroids breathing treatments and antibiotics. Pacemaker was interrogated due to tachycardia. Pacemaker interrogation showed SVT and PAT, per pacemaker interrogation. clinically improving slowly. Pulmonary and cardiology is following. All other review of systems negative except the above. Current medications reviewed. Active Medications Active Medications Generic Name Dose Route Start Last Admin Trade Name Freq PRN Reason Stop Dose Admin Acetaminophen 650 mg 02/09/18 21:57 Tylenol Tab PO Q6HR PRN Mild Pain or Fever > 100.5 Albuterol Sulfate 2.5 mg 02/09/18 21:59 Ventolin Nebulized INHALATION RT-Q2H PRN Shortness Of Breath Or Wheezing Albuterol/Ipratropium 3 ml 02/10/18 16:00 02/19/18 11:40 Duoneb 0.5 Mg-3 Mg/3 Ml Soln INHALATION 3 ml RT-Q4H KARINA Administration Aspirin 325 mg 02/10/18 09:00 02/19/18 08:28 Aspirin PO 325 mg DAILY KARINA Administration Atorvastatin Calcium 40 mg 02/10/18 09:00 02/19/18 08:29 Lipitor PO 40 mg DAILY KARINA Administration Azithromycin 500 mg 02/13/18 16:00 02/18/18 16:35 Zithromax PO 500 mg DAILY@1600 KARINA Administration Budesonide 1 mg 02/10/18 20:00 02/19/18 07:46 Pulmicort INHALATION 1 mg RT-BID KARINA Administration Cholecalciferol 1,000 unit 02/11/18 09:00 02/19/18 08:29 Vitamin D3 PO 1,000 unit DAILY KARINA Administration Clonidine 0.2 mg 02/10/18 00:00 02/19/18 08:28 Catapres PO 0.2 mg Q8HR KARINA Administration Clopidogrel Bisulfate 75 mg 02/10/18 09:00 02/19/18 08:29 Plavix PO 75 mg DAILY KARINA Administration Clotrimazole 1 applic 02/11/18 12:15 02/19/18 08:28 Lotrimin Cream TOPICAL 1 applic BID KARINA Administration Docusate Sodium 100 mg 02/13/18 04:09 02/14/18 20:27 Colace PO 100 mg BID PRN Administration Constipation Famotidine 20 mg 02/10/18 09:00 02/19/18 08:29 Pepcid PO 20 mg BID KARINA Administration Formoterol Fumarate 20 mcg 02/10/18 20:00 02/19/18 07:46 Perforomist INHALATION 20 mcg RT-BID KARINA Administration Furosemide 40 mg 02/18/18 09:00 02/19/18 08:29 Lasix PO 40 mg DAILY KARINA Administration Guaifenesin 600 mg 02/16/18 21:00 02/19/18 08:29 Mucinex PO 600 mg Q12HR KARINA Administration Heparin Sodium (Porcine) 5,000 unit 02/10/18 16:00 02/19/18 08:28 Heparin SQ 5,000 unit Q8HR KARINA Administration Ceftriaxone Sodium 2,000 mg/ 100 mls @ 100 mls/hr 02/11/18 17:00 02/18/18 16: 35 Sodium Chloride IVPB 100 mls/hr Q24H KARINA Administration Insulin Aspart 0 unit 02/10/18 07:30 02/19/18 11:48 Novolog SQ 3 unit ACHS KARINA Administration Protocol Isosorbide Mononitrate 60 mg 02/10/18 09:00 02/19/18 08:29 Imdur PO 60 mg DAILY KRAINA Administration Loratadine 10 mg 02/11/18 09:00 02/19/18 08:29 Claritin PO 10 mg DAILY KARINA Administration Losartan Potassium 50 mg 02/10/18 09:00 02/19/18 08:30 Cozaar PO 50 mg DAILY KARINA Administration Methylprednisolone Sodium Succinate 40 mg 02/14/18 00:00 02/19/18 08:28 Solu-Medrol IV 40 mg Q8HR KARINA Administration Metoprolol Tartrate 50 mg 02/17/18 21:00 02/19/18 08:28 Lopressor PO 50 mg BID KARINA Administration Morphine Sulfate 4 mg 02/09/18 21:57 02/19/18 14:37 Morphine Sulfate (Inj) IV 4 mg Q4HR PRN Administration Severe Pain Naloxone HCl 0.2 mg 02/09/18 21:57 Narcan IV Q2M PRN Opioid Reversal Nystatin 1 applic 02/10/18 21:00 02/19/18 08:30 Mycostatin Powder TOPICAL 1 applic BID KARINA Administration Ondansetron HCl 4 mg 02/09/18 21:57 02/16/18 16:01 Zofran IVP 4 mg Q8HR PRN Administration Nausea And Vomiting Oxycodone/Acetaminophen 1 each 02/10/18 14:37 02/19/18 11:48 Percocet 7.5-325 PO 1 each Q4HR PRN Administration MODERATE Pain Senna 8.6 mg 02/14/18 10:56 02/14/18 11:56 Senokot PO 8.6 mg BID PRN Administration Constipation Objective - Vital Signs Vital signs: Vital Signs Temp 97.6 F 02/19/18 11:42 Pulse 72 02/19/18 15:10 Resp 18 02/19/18 15:10 BP 125/71 02/19/18 11:42 Pulse Ox 93 L 02/19/18 11:42 Intake & Output 02/18/18 02/19/18 02/19/18 18:59 06:59 18:59 Intake Total 1482 300 660 Output Total 282 090 8486 Balance 782 -100 -340 Weight 170.45 kg 171.6 kg Intake: Oral 1482 300 660 Output: Urine 700 400 400 Stool 600 Other: Voiding Method Toilet Toilet Toilet Urinal Urinal Urinal # Voids 1 1 3 # Bowel Movements 1 - Exam PHYSICAL EXAMINATION: Patient is lying in the bed comfortably, no acute distress, awake alert and oriented. Morbidly obese. HEENT: Normocephalic. Neck is supple. Pupils reactive. Nostrils clear. Oral cavity is moist. Ears reveal no drainage. Neck reveals no JVD, carotid bruits, or thyromegaly. CHEST EXAMINATION: Trachea is central. Symmetrical expansion. Bilateral air entry improved. basilar rhonchi and expiratory wheezing. CARDIAC: Normal S1, S2 with no gallops. No murmurs ABDOMEN: Soft. Obese. Bowel sounds normal. No organomegaly. No abdominal bruits. Extremities: 2+ edema. No clubbing or cyanosis Neurologically awake, alert, oriented x3 with well-coordinated movements. No focal deficits noted Skin: No rash or skin lesions. Psychiatric: Coperative. Nonsuicidal Musculoskeletal: No joint swelling or deformity. Normal range of motion. - Labs CBC & Chem 7: 02/17/18 05:35 02/18/18 10:50 Labs: Abnormal Lab Results - Last 24 Hours (Table) 02/18/18 02/18/18 02/19/18 Range/Units 16:27 20:30 05:54 POC Glucose (mg/dL) 141 H 181 H 162 H (75-99) mg/dL 02/19/18 Range/Units 11:36 POC Glucose (mg/dL) 162 H (75-99) mg/dL Assessment and Plan Assessment: Acute on chronic hypoxic respiratory failure secondary to COPD exacerbation Acute COPD exacerbation requiring BiPAP. Currently on nasal cannula. Morbid obesity, obesity hypoventilation syndrome and obstructive sleep apnea Ongoing nicotine dependence Coronary artery disease with history of stent placement 4 Ischemic cardiopathy status post AICD placement in 2012 SVT and PAT, per pacemaker interrogation History of CVA in 2004 Hypertension Hyperlipidemia Chronic back pain and spinal stenosis Diverticular disease Chronic hypoxic respiratory failure on home oxygen DVT prophylaxis with heparin subcu Plan: Patient will be continued on antibiotics, breathing treatments and steroids and BiPAP as needed. Currently the current management and follow closely. PTOT consult and possible rehab transfer once medically stable. Prognosis is guarded with multiple medical problems and comorbid conditions. Further recommendations based on the clinical course. Time with Patient: Greater than 30
[2018-02-19 16:35] LABS: Glucose,Whole Blood 132 mg/dL (75-99)
[2018-02-19] MEDS: AZITHROMYCIN 500 MG TAB PO SCH (16:53)
[2018-02-19] MEDS: cefTRIAXone 2,000 MG in SODIUM CHLORIDE 0.9% 100 ML IVPB SCH (16:54)
[2018-02-19 20:42] LABS: Glucose,Whole Blood 191 mg/dL (75-99)
[2018-02-20] MEDS ORDERED: IPRATROPIUM-ALBUTEROL 3 ML NEB ONE (00:11)
[2018-02-20] MEDS: IPRATROPIUM-ALBUTEROL 3 ML NEB INHALATION SCH ×6 (00:14→20:00)
[2018-02-20] MEDS: oxyCODONE-APAP 7.5-325MG 1 EACH TAB PO PRN ×5 (03:45→22:49)
[2018-02-20 06:11] LABS: Glucose,Whole Blood 196 mg/dL (75-99)
[2018-02-20] MEDS: INSULIN ASPART 100 UNIT/ML 1 ML 10 ML VIAL SQ SCH ×4 (06:51→21:35)
[2018-02-20] MEDS: FUROSEMIDE 40 MG TAB PO SCH (08:19)
[2018-02-20] MEDS: METOPROLOL TARTRATE 50 MG TAB PO SCH ×2 (08:19→21:13)
[2018-02-20] MEDS: LORATADINE 10 MG TAB PO SCH (08:19)
[2018-02-20] MEDS: ASPIRIN 325 MG TAB PO SCH (08:19)
[2018-02-20] MEDS: ATORVASTATIN 40 MG TAB PO SCH (08:19)
[2018-02-20] MEDS: FAMOTIDINE 20 MG TAB PO SCH ×2 (08:19→21:13)
[2018-02-20] MEDS: CLOPIDOGREL 75 MG TAB PO SCH (08:19)
[2018-02-20] MEDS: guaiFENesin 600 MG TABLET.ER PO SCH ×2 (08:19→21:13)
[2018-02-20] MEDS: CHOLECALCIFEROL 1,000 UNIT TAB PO SCH (08:19)
[2018-02-20] MEDS: HEPARIN SODIUM,PORCINE 5,000 UNIT/ML 1 ML VIAL SQ SCH ×3 (08:19→22:51)
[2018-02-20] MEDS: cloNIDine HCL 0.2 MG TAB PO SCH ×3 (08:19→22:50)
[2018-02-20] MEDS: ISOSORBIDE MONONITRATE ER 60 MG TAB.ER.24H PO SCH (08:19)
[2018-02-20] MEDS: MORPHINE SULFATE 4 MG/ML SYRINGE IV PRN ×4 (08:20→21:09)
[2018-02-20] MEDS: methylPREDNISolone SOD SUCCI 40 MG/ML 1 ML VIAL IV SCH ×3 (08:20→22:50)
[2018-02-20] MEDS: CLOTRIMAZOLE 1% CREAM 15 GM TUBE TOPICAL SCH ×2 (08:21→21:12)
[2018-02-20] MEDS: NYSTATIN 100,000 UNIT/GM POWD 15 GM TOPICAL SCH ×2 (08:22→21:13)
[2018-02-20] MEDS: FORMOTEROL FUMARATE 20 MCG/2 ML NEBU INHALATION SCH ×2 (08:47→20:00)
[2018-02-20] MEDS: BUDESONIDE 1 MG/2 ML NEBU INHALATION SCH ×2 (08:47→20:00)
[2018-02-20] MEDS: LOSARTAN 50 MG TAB PO SCH (09:21)
[2018-02-20 11:46] LABS: Glucose,Whole Blood 110 mg/dL (75-99)
[2018-02-20 11:51] LABS: Basophils # (A) 0.1 k/uL (0-0.2); Basophils % (A) 0 %; Eosinophils % (A) 0 %; HCT 44.6 % (39.0-53.0); HGB 14.1 gm/dL (13.0-17.5); Lymphocytes # (A) 1.4 k/uL (1.0-4.8); Lymphocytes % (A) 7 %; MCH 28.7 pg (25.0-35.0); MCHC 31.7 g/dL (31.0-37.0); MCV 90.5 fL (80.0-100.0); Mean Platelet Volume 7.5; Monocytes % (A) 5 %; Neutrophils % (A) 87 %; Platelet Count 236 k/uL (150-450); RBC 4.92 m/uL (4.30-5.90); RDW 14.3 % (11.5-15.5); WBC 20.8 k/uL (3.8-10.6)
[2018-02-20 12:02] LABS: Anion Gap 6 mmol/L; Blood Urea Nitrogen 34 mg/dL (9-20); Calcium 8.9 mg/dL (8.4-10.2); Carbon Dioxide 33 mmol/L (22-30); Chloride 95 mmol/L (98-107); Glucose 96 mg/dL (74-99); Magnesium 2.2 mg/dL (1.6-2.3); Potassium 5.1 mmol/L (3.5-5.1); Sodium 134 mmol/L (137-145)
--- NOTE | 2018-02-20 13:17 | P.PN ---
Subjective Progress Note Date: 02/20/18 Principal diagnosis: Acute chronic hypoxic respiratory failure secondary to an acute exacerbation of COPD, morbid obesity, poor ventilation syndrome. This is a very pleasant 62-year-old gentleman who follows with Dr. Yohan Anna as his primary care provider. He has a history of morbid obesity with obesity/hypoventilation syndrome/obstructive sleep apnea, cor pulmonale, coronary artery disease with previous stent placements 4, AICD placement secondary to ischemic cardio myopathy in 2012, diastolic congestive heart failure, osteoarthritis, CVA in 2004, chronic back pain secondary to degenerative disc disease, spinal cord stenosis. The patient also has chronic obstructive pulmonary disease and chronic and ongoing tobacco dependence. He is on Breo and DuoNeb in the outpatient setting. He presented here to the emergency room yesterday after a 2-3 day progressive worsening shortness of breath and increased swelling of his lower extremities. His chest x-ray shows no active cardiopulmonary disease. White count 9.5. Hemoglobin 14.6. Creatinine 0.85. ProBNP is 243. He has been utilizing the BiPAP 12/5 and 40% FiO2. He is seen today in consultation on the selective is having a hard time bringing up phlegm. On 02/12/2018 patient seen in follow-up. Lung sounds reveal diffuse wheezes, and rhonchi, patient remains on BiPAP, he is tolerating well, he states he is more comfortable on that right now. awake and alert in no acute distress. Still with bronchospasm and wheezing. He is able to bring up some sputum. Afebrile, vital signs are stable. His chest x-ray has been reviewed, shows mild cardiomegaly. Acute pulmonary process. Continue current medical treatment , continue nebulized bronchodilators, diuretics, antibiotics and steroids. On 02/20/2018 patient seen in follow-up on medical surgical floor. He is awake and alert, in no acute distress, currently on 3 L per nasal cannula and his pulse ox of 93%, he wears his BiPAP at night. Lung sounds are positive for scattered rhonchi, and patient is able to bring up sputum. So far all cultures are negative. She remains on empiric antibiotics in the form of Zithromax and Rocephin, he is on Pulmicort, DuoNeb, and IV steroids, is on oral Lasix, he is in no distress, denies any worsening shortness of breath or chest pain. he had refused his bronchoscopy last week, at this time he is able to clear the secretions on his own. We will increase activity. We'll provide patient with the flutter valve and incentive spirometer. Continue to follow. Objective - Vital Signs Vital signs: Vital Signs Temp 98.1 F 02/20/18 10:45 Pulse 68 02/20/18 12:22 Resp 18 02/20/18 10:45 BP 112/88 02/20/18 10:45 Pulse Ox 93 L 02/20/18 10:45 Intake & Output 02/19/18 02/20/18 02/20/18 18:59 06:59 18:59 Intake Total 882 240 Output Total 1000 2300 Balance -118 -2300 240 Weight 172.5 kg Intake: Oral 882 240 Output: Urine 400 800 Stool 600 1500 Other: Voiding Method Toilet Toilet Urinal Urinal # Voids 3 1 - Exam - Constitutional General appearance: morbidly obese - EENT Eyes: EOMI, PERRLA ENT: hearing grossly normal Ears: bilateral: normal - Neck Neck: normal ROM Carotids: bilateral: upstroke normal Thyroid: bilateral: normal size - Respiratory Respiratory: bilateral: wheezing, and scattered rhonchi - Cardiovascular Rhythm: regular Heart sounds: normal: S1, S2 - Gastrointestinal General gastrointestinal: normal bowel sounds - Integumentary Integumentary: normal turgor - Neurologic Neurologic: CNII-XII intact - Musculoskeletal Musculoskeletal: generalized weakness - Psychiatric Psychiatric: A&O x's 3, appropriate affect, intact judgment & insight - Labs CBC & Chem 7: 02/20/18 11:19 02/20/18 11:19 Labs: Abnormal Lab Results - Last 24 Hours (Table) 02/19/18 02/19/18 02/20/18 Range/Units 16:33 20:40 06:09 WBC (3.8-10.6) k/uL Neutrophils # (1.3-7.7) k/uL Sodium (137-145) mmol/L Chloride (98-107) mmol/L Carbon Dioxide (22-30) mmol/L BUN (9-20) mg/dL POC Glucose (mg/dL) 132 H 191 H 196 H (75-99) mg/dL 09/24/18 09/24/18 09/24/18 Range/Units 11:19 11:19 11:43 WBC 20.8 H (3.8-10.6) k/uL Neutrophils # 18.0 H (1.3-7.7) k/uL Sodium 134 L (137-145) mmol/L Chloride 95 L (98-107) mmol/L Carbon Dioxide 33 H (22-30) mmol/L BUN 34 H (9-20) mg/dL POC Glucose (mg/dL) 110 H (75-99) mg/dL Assessment and Plan Plan: #1 Acute on chronic hypoxic respiratory failure secondary to an acute exacerbation of chronic obstructive pulmonary disease. Currently utilizing BiPAP 14/5 at 40% FiO2. #2 Acute on chronic hypercapnic respiratory failure secondary to above. #3 Morbid obesity with obesity/hypoventilation syndrome/obstructive sleep apnea. Utilizing CPAP in the outpatient setting. #4 Chronic and ongoing tobacco dependence. #5 Coronary artery disease with previous stent placement 4. #6 Ischemic cardiomyopathy status post AICD placement in 2012. #7 History of CVA 2004. #8 Hypertension. #9 Hyperlipidemia. #10 Chronic low back pain. #11 Diverticular disease. Plan: Continue current medical treatment, antibiotics, IV steroids and nebulized bronchodilators, patient is able to bring up phlegm on his own, he has a effective cough, we'll provide with the flutter valve and incentive spirometer, increase activity as tolerated, BiPAP at at bedtime and as needed. We'll follow I performed a history & physical examination of the patient and discussed their management with my nurse practitioner, Olga Lidia Molina. I reviewed the nurse practitioner's note and agree with the documented findings and plan of care. Lung sounds are positive for diffuse wheezing. The findings and the impression was discussed with the patient. I attest to the documentation by the nurse practitioner. Time with Patient: Less than 30
[2018-02-20] MEDS: AZITHROMYCIN 500 MG TAB PO SCH (16:58)
[2018-02-20] MEDS: cefTRIAXone 2,000 MG in SODIUM CHLORIDE 0.9% 100 ML IVPB SCH (16:58)
[2018-02-20 17:19] LABS: Glucose,Whole Blood 116 mg/dL (75-99)
[2018-02-20] MEDS ORDERED: IPRATROPIUM-ALBUTEROL 3 ML NEB INHALATION PRN (20:05)
[2018-02-20 21:09] LABS: Glucose,Whole Blood 247 mg/dL (75-99)
[2018-02-21] MEDS: MORPHINE SULFATE 4 MG/ML SYRINGE IV PRN ×3 (01:59→10:06)
[2018-02-21 06:44] VITALS: BP 161/91; TEMP 98.7
[2018-02-21 07:36] LABS: Glucose,Whole Blood 108 mg/dL (75-99)
[2018-02-21] MEDS: cloNIDine HCL 0.2 MG TAB PO SCH (07:59)
[2018-02-21] MEDS: FUROSEMIDE 40 MG TAB PO SCH (07:59)
[2018-02-21] MEDS: CHOLECALCIFEROL 1,000 UNIT TAB PO SCH (07:59)
[2018-02-21] MEDS: ASPIRIN 325 MG TAB PO SCH (07:59)
[2018-02-21] MEDS: ISOSORBIDE MONONITRATE ER 60 MG TAB.ER.24H PO SCH (07:59)
[2018-02-21] MEDS: FAMOTIDINE 20 MG TAB PO SCH (07:59)
[2018-02-21] MEDS: METOPROLOL TARTRATE 50 MG TAB PO SCH (07:59)
[2018-02-21] MEDS: LOSARTAN 50 MG TAB PO SCH (07:59)
[2018-02-21] MEDS: LORATADINE 10 MG TAB PO SCH (07:59)
[2018-02-21] MEDS: ATORVASTATIN 40 MG TAB PO SCH (07:59)
[2018-02-21] MEDS: guaiFENesin 600 MG TABLET.ER PO SCH (07:59)
[2018-02-21] MEDS: HEPARIN SODIUM,PORCINE 5,000 UNIT/ML 1 ML VIAL SQ SCH (08:00)
[2018-02-21] MEDS: INSULIN ASPART 100 UNIT/ML 1 ML 10 ML VIAL SQ SCH ×2 (08:00→13:27)
[2018-02-21] MEDS: oxyCODONE-APAP 7.5-325MG 1 EACH TAB PO PRN ×2 (08:00→11:54)
[2018-02-21] MEDS: CLOPIDOGREL 75 MG TAB PO SCH (08:00)
[2018-02-21] MEDS: methylPREDNISolone SOD SUCCI 40 MG/ML 1 ML VIAL IV SCH (08:00)
[2018-02-21] MEDS: IPRATROPIUM-ALBUTEROL 3 ML NEB INHALATION SCH ×2 (08:02→11:24)
[2018-02-21] MEDS: BUDESONIDE 1 MG/2 ML NEBU INHALATION SCH (08:02)
[2018-02-21] MEDS: FORMOTEROL FUMARATE 20 MCG/2 ML NEBU INHALATION SCH (08:02)
[2018-02-21 08:07] VITALS: RESP 16
[2018-02-21] MEDS: NYSTATIN 100,000 UNIT/GM POWD 15 GM TOPICAL SCH (08:09)
[2018-02-21] MEDS: CLOTRIMAZOLE 1% CREAM 15 GM TUBE TOPICAL SCH (08:22)
[2018-02-21 11:28] VITALS: PULSE 70
--- NOTE | 2018-02-21 11:38 | P.PN ---
Subjective Progress Note Date: 02/21/18 Principal diagnosis: Acute chronic hypoxic respiratory failure secondary to an acute exacerbation of COPD, morbid obesity, poor ventilation syndrome. This is a very pleasant 62-year-old gentleman who follows with Dr. Yohan Anna as his primary care provider. He has a history of morbid obesity with obesity/hypoventilation syndrome/obstructive sleep apnea, cor pulmonale, coronary artery disease with previous stent placements 4, AICD placement secondary to ischemic cardio myopathy in 2012, diastolic congestive heart failure, osteoarthritis, CVA in 2004, chronic back pain secondary to degenerative disc disease, spinal cord stenosis. The patient also has chronic obstructive pulmonary disease and chronic and ongoing tobacco dependence. He is on Breo and DuoNeb in the outpatient setting. He presented here to the emergency room yesterday after a 2-3 day progressive worsening shortness of breath and increased swelling of his lower extremities. His chest x-ray shows no active cardiopulmonary disease. White count 9.5. Hemoglobin 14.6. Creatinine 0.85. ProBNP is 243. He has been utilizing the BiPAP 12/5 and 40% FiO2. He is seen today in consultation on the selective is having a hard time bringing up phlegm. On 02/12/2018 patient seen in follow-up. Lung sounds reveal diffuse wheezes, and rhonchi, patient remains on BiPAP, he is tolerating well, he states he is more comfortable on that right now. awake and alert in no acute distress. Still with bronchospasm and wheezing. He is able to bring up some sputum. Afebrile, vital signs are stable. His chest x-ray has been reviewed, shows mild cardiomegaly. Acute pulmonary process. Continue current medical treatment , continue nebulized bronchodilators, diuretics, antibiotics and steroids. On 02/20/2018 patient seen in follow-up on medical surgical floor. He is awake and alert, in no acute distress, currently on 3 L per nasal cannula and his pulse ox of 93%, he wears his BiPAP at night. Lung sounds are positive for scattered rhonchi, and patient is able to bring up sputum. So far all cultures are negative. She remains on empiric antibiotics in the form of Zithromax and Rocephin, he is on Pulmicort, DuoNeb, and IV steroids, is on oral Lasix, he is in no distress, denies any worsening shortness of breath or chest pain. he had refused his bronchoscopy last week, at this time he is able to clear the secretions on his own. We will increase activity. We'll provide patient with the flutter valve and incentive spirometer. Continue to follow. On 02/21/2018 patient seen in follow-up on medical surgical unit. Yesterday we gave the patient incentive spirometer, and flutter valve, patient is still has the scattered rhonchi, but sounds better on today's exam. He is able to bring up sputum. Afebrile, hemodynamically stable, pulse ox on 3 L per nasal cannula is 93%. He sitting up in the chair, no acute distress. Wears his BiPAP at night. No fever or chills, blood, urine and sputum cultures were negative. Patient has been treated with Zithromax and Rocephin, he has received 10 days worth of treatment. From pulmonary standpoint patient is stable, has significantly improved, and could be considered for discharge to subacute rehab today, on prednisone taper, nebulized bronchodilators. Patient has finished a course of IV antibiotics, and those can be discontinued at this time. Objective - Vital Signs Vital signs: Vital Signs Temp 98.7 F 02/21/18 06:43 Pulse 70 02/21/18 11:27 Resp 16 02/21/18 08:00 BP 161/91 02/21/18 06:43 Pulse Ox 93 L 02/21/18 08:00 Intake & Output 02/20/18 02/21/18 02/21/18 18:59 06:59 18:59 Intake Total 1440 Balance 1440 Weight 172.5 kg Intake: Oral 1440 Other: Voiding Method Toilet Urinal # Voids 2 2 - Exam - Constitutional General appearance: morbidly obese - EENT Eyes: EOMI, PERRLA ENT: hearing grossly normal Ears: bilateral: normal - Neck Neck: normal ROM Carotids: bilateral: upstroke normal Thyroid: bilateral: normal size - Respiratory Respiratory: bilateral: few wheezing, and scattered rhonchi - Cardiovascular Rhythm: regular Heart sounds: normal: S1, S2 - Gastrointestinal General gastrointestinal: normal bowel sounds - Integumentary Integumentary: normal turgor - Neurologic Neurologic: CNII-XII intact - Musculoskeletal Musculoskeletal: generalized weakness - Psychiatric Psychiatric: A&O x's 3, appropriate affect, intact judgment & insight - Labs CBC & Chem 7: 02/20/18 11:19 02/20/18 11:19 Labs: Abnormal Lab Results - Last 24 Hours (Table) 02/20/18 02/20/18 02/20/18 Range/Units 11:19 11:19 11:43 WBC 20.8 H (3.8-10.6) k/uL Neutrophils # 18.0 H (1.3-7.7) k/uL Sodium 134 L (137-145) mmol/L Chloride 95 L (98-107) mmol/L Carbon Dioxide 33 H (22-30) mmol/L BUN 34 H (9-20) mg/dL POC Glucose (mg/dL) 110 H (75-99) mg/dL 02/20/18 02/20/18 02/21/18 Range/Units 17:03 21:07 07:26 WBC (3.8-10.6) k/uL Neutrophils # (1.3-7.7) k/uL Sodium (137-145) mmol/L Chloride (98-107) mmol/L Carbon Dioxide (22-30) mmol/L BUN (9-20) mg/dL POC Glucose (mg/dL) 116 H 247 H 108 H (75-99) mg/dL Assessment and Plan Plan: #1 Acute on chronic hypoxic respiratory failure secondary to an acute exacerbation of chronic obstructive pulmonary disease. Currently utilizing BiPAP 14/5 at 40% FiO2. #2 Acute on chronic hypercapnic respiratory failure secondary to above. #3 Morbid obesity with obesity/hypoventilation syndrome/obstructive sleep apnea. Utilizing CPAP in the outpatient setting. #4 Chronic and ongoing tobacco dependence. #5 Coronary artery disease with previous stent placement 4. #6 Ischemic cardiomyopathy status post AICD placement in 2012. #7 History of CVA 2004. #8 Hypertension. #9 Hyperlipidemia. #10 Chronic low back pain. #11 Diverticular disease. Plan: Patient is improving, no acute issues overnight, using his incentive spirometry , and the flutter valve, is able to bring up phlegm. No ongoing fever, no worsening shortness of breath or chest pain. He completed a ten-day course of Zithromax and Rocephin, cultures have been negative. We can discontinue both at this time. Patient is stable for discharge from pulmonary perspective on prednisone taper, nebulized bronchodilators. Follow-up with Dr. Rey in the office in one week. I performed a history & physical examination of the patient and discussed their management with my nurse practitioner, Olga Lidia Molina. I reviewed the nurse practitioner's note and agree with the documented findings and plan of care. Lung sounds are positive for a few wheezes, and rhonchi. The findings and the impression was discussed with the patient. I attest to the documentation by the nurse practitioner. Time with Patient: Less than 30
--- NOTE | 2018-02-21 12:18 | P.DS ---
Providers Date of admission: 02/09/18 22:05 Expected date of discharge: 02/21/18 Attending physician: Erin Abarca Consults: 02/09/18 22:06 Consult Physician Routine Consulting Provider: Farnaz Rey Consult Reason/Comments: COPD exacerbation Do you want consulting provider notified?: Yes 02/16/18 15:58 Consult Physician Routine Consulting Provider: Gokul Avery Consult Reason/Comments: AICD MANAGEMENT Do you want consulting provider notified?: Yes Primary care physician: Yohan Anna MD Hospital Course: Final Diagnoses: Acute on chronic hypoxic respiratory failure secondary to COPD exacerbation Acute COPD exacerbation requiring BiPAP. Currently on nasal cannula. Morbid obesity, obesity hypoventilation syndrome and obstructive sleep apnea Ongoing nicotine dependence Coronary artery disease with history of stent placement 4 Ischemic cardiopathy status post AICD placement in 2012 SVT and PAT, per pacemaker interrogation History of CVA in 2004 Hypertension Hyperlipidemia Chronic back pain and spinal stenosis Diverticular disease Chronic hypoxic respiratory failure on home oxygen Hospital course:Patient is a 62-year-old male with a known history of morbid obesity, obesity hypoventilation syndrome, obstructive sleep apnea, cor pulmonale, coronary artery disease with history of stent placement 4, AICD placement secondary to ischemic cardiomyopathy in 2012, Diastolic heart failure , Osteoarthritis, CVA in 2004, chronic back pain secondary to degenerative disc disease, spinal cord stenosis was admitted to the hospital with worsening shortness of breath progressively over the past 2-3 days prior to admission. Chest x-ray showed no acute cardiopulmonary process on admission. Evaluated by both cardiology and pulmonary. AICD interrogated, reporting as functionally normally. Metoprolol increased. Maintained on BiPAP, antibiotics, nebulized bronchodilators, systemic steroids. Significant clinical improvement. Cleared by all consults for discharge. Patient is being discharged to [facility] in a stable condition with guarded prognosis . EXAMINATION: GENERAL: no acute distress, awake alert and oriented. Morbidly obese. CHEST EXAMINATION: Trachea is central. Symmetrical expansion. Bilateral air entry improved. basilar rhonchi and expiratory wheezing. CARDIAC: Normal S1, S2 with no gallops. No murmurs ABDOMEN: Soft. Obese. Bowel sounds normal. No organomegaly. No abdominal bruits. Neurologically No focal deficits noted The impression and plan of care has been dictated as directed. : I performed a history and examination of this patient, discussed the same with the dictator. I agree with the dictator's note ,documented as a scribe. Any additional findings or plans will be noted. Time taken: 35 minutes Patient Condition at Discharge: Stable Plan - Discharge Summary Discharge Rx Participant: No New Discharge Prescriptions: New Acetaminophen Tab [Tylenol] 650 mg PO Q6HR PRN tab PRN Reason: Mild Pain Or Fever > 100.5 Clotrimazole Cream [Lotrimin Cream] 1 applic TOPICAL BID applic Docusate [Colace] 100 mg PO BID PRN cap PRN Reason: Constipation Famotidine [Pepcid] 20 mg PO BID tab guaiFENesin [Mucinex] 600 mg PO Q12HR tablet.er Ipratropium-Albuterol Nebulize [Duoneb 0.5 mg-3 mg/3 ml Soln] 3 ml INHALATION RT-QID ampul.neb Ipratropium-Albuterol Nebulize [Duoneb 0.5 mg-3 mg/3 ml Soln] 3 ml INHALATION Q4H PRN ampul.neb PRN Reason: Shortness Of Breath Or Wheezing Metoprolol Tartrate [Lopressor] 50 mg PO BID tab predniSONE 10 mg PO DIRECTED #30 tab Sennosides [Senokot] 8.6 mg PO BID PRN tab PRN Reason: Constipation Continue Clopidogrel [Plavix] 75 mg PO DAILY #30 tab Nystatin 100,000 Unit/gm Powd [Mycostatin Powder] 1 applic TOPICAL BID Isosorbide Mononitrate ER [Imdur] 60 mg PO DAILY Losartan [Cozaar] 50 mg PO DAILY #30 tab cloNIDine HCL [Catapres] 0.2 mg PO Q8HR #90 tab Aspirin EC [Ecotrin] 325 mg PO DAILY Furosemide [Lasix] 40 mg PO DAILY Cetirizine HCl [Zyrtec] 10 mg PO DAILY Cholecalciferol [Vitamin D3] 1,000 unit PO DAILY Budesonide/Formoterol Fumarate [Symbicort 160-4.5 Mcg Inhaler] 2 puff INHALATION RT-DAILY Atorvastatin [Lipitor] 40 mg PO HS Vitamin B Complex/Folic Acid [B-Complex Tablet] 0.4 mg PO DAILY oxyCODONE-APAP 7.5-325MG [Percocet 7.5-325 mg] 1 tab PO Q4HR PRN #18 tab PRN Reason: Pain Discontinued Metoprolol Tartrate [Lopressor] 25 mg PO BID Potassium Chloride ER [K-Dur 20] 20 meq PO DAILY tab.er.prt Albuterol Inhaler [Ventolin Hfa Inhaler] 2 puff INHALATION RT-Q4H PRN PRN Reason: Shortness Of Breath Fluconazole [Diflucan] 200 mg PO DAILY Discharge Medication List Clopidogrel [Plavix] 75 mg PO DAILY #30 tab 02/05/16 [Rx] Isosorbide Mononitrate ER [Imdur] 60 mg PO DAILY 04/25/17 [History] Nystatin 100,000 Unit/gm Powd [Mycostatin Powder] 1 applic TOPICAL BID 04/25/17 [History] Losartan [Cozaar] 50 mg PO DAILY #30 tab 04/27/17 [Rx] cloNIDine HCL [Catapres] 0.2 mg PO Q8HR #90 tab 05/17/17 [Rx] Aspirin EC [Ecotrin] 325 mg PO DAILY 02/09/18 [History] Atorvastatin [Lipitor] 40 mg PO HS 02/10/18 [History] Budesonide/Formoterol Fumarate [Symbicort 160-4.5 Mcg Inhaler] 2 puff INHALATION RT-DAILY 02/10/18 [History] Cetirizine HCl [Zyrtec] 10 mg PO DAILY 02/10/18 [History] Cholecalciferol [Vitamin D3] 1,000 unit PO DAILY 02/10/18 [History] Furosemide [Lasix] 40 mg PO DAILY 02/10/18 [History] Vitamin B Complex/Folic Acid [B-Complex Tablet] 0.4 mg PO DAILY 02/10/18 [ History] Acetaminophen Tab [Tylenol] 650 mg PO Q6HR PRN tab 02/21/18 [Rx] Clotrimazole Cream [Lotrimin Cream] 1 applic TOPICAL BID applic 02/21/18 [Rx] Docusate [Colace] 100 mg PO BID PRN cap 02/21/18 [Rx] Famotidine [Pepcid] 20 mg PO BID tab 02/21/18 [Rx] Ipratropium-Albuterol Nebulize [Duoneb 0.5 mg-3 mg/3 ml Soln] 3 ml INHALATION Q4H PRN ampul.neb 02/21/18 [Rx] Ipratropium-Albuterol Nebulize [Duoneb 0.5 mg-3 mg/3 ml Soln] 3 ml INHALATION RT -QID ampul.neb 02/21/18 [Rx] Metoprolol Tartrate [Lopressor] 50 mg PO BID tab 02/21/18 [Rx] Sennosides [Senokot] 8.6 mg PO BID PRN tab 02/21/18 [Rx] guaiFENesin [Mucinex] 600 mg PO Q12HR tablet.er 02/21/18 [Rx] oxyCODONE-APAP 7.5-325MG [Percocet 7.5-325 mg] 1 tab PO Q4HR PRN #18 tab [Rx] predniSONE 10 mg PO DIRECTED #30 tab 02/21/18 [Rx] Follow up Appointment(s)/Referral(s): Yohan Anna MD [Primary Care Provider] - 3 Days (Visiting physician) Juan Robbins MD [STAFF PHYSICIAN] - 03/06/18 9:30 am Raquel Gutierrez MD [STAFF PHYSICIAN] - 03/10/18 2:30 pm ([facility] 2 PM 03/10/2018) Patient Instructions/Handouts: COPD (Chronic Obstructive Pulmonary Disease) (DC ) Activity/Diet/Wound Care/Special Instructions: [facility] 3 L nasal cannula O2 CBC,BMP in 3 days No antibx as per pulmonary DIet: low potassium activity: as tolerated Flutter valve, IS Q1 H x 10 WA
[2018-02-21 12:23] LABS: Glucose,Whole Blood 144 mg/dL (75-99)
== END 2018-02-21 15:04 | DRG 190 ==
LOC: EC 20:24 → 6SEL 22:05 → 4MS4W 02-20 09:55
PROVIDERS: ADMIT Hospitalist; ATTEND Hospitalist
DX: J44.1 Chronic obstructive pulmonary disease with (acute) exacerbation (principal); J96.21 Acute and chronic respiratory failure with hypoxia; J96.22 Acute and chronic respiratory failure with hypercapnia; I47.1 Supraventricular tachycardia; Z68.43 Body mass index [BMI] 50.0-59.9, adult; E66.2 Morbid (severe) obesity with alveolar hypoventilation; E87.2 Acidosis; I50.32 Chronic diastolic (congestive) heart failure; I11.0 Hypertensive heart disease with heart failure; F17.200 Nicotine dependence, unspecified, uncomplicated; G89.29 Other chronic pain; I25.10 Atherosclerotic heart disease of native coronary artery without angina pectoris; I25.2 Old myocardial infarction; I25.5 Ischemic cardiomyopathy; I27.81 Cor pulmonale (chronic); K57.90 Diverticulosis of intestine, part unspecified, without perforation or abscess without bleeding; K59.00 Constipation, unspecified; M48.00 Spinal stenosis, site unspecified; Z79.02 Long term (current) use of antithrombotics/antiplatelets; Z79.4 Long term (current) use of insulin; Z79.51 Long term (current) use of inhaled steroids; Z79.52 Long term (current) use of systemic steroids; Z79.82 Long term (current) use of aspirin; Z79.891 Long term (current) use of opiate analgesic; E78.5 Hyperlipidemia, unspecified; Z82.0 Family history of epilepsy and other diseases of the nervous system; Z82.49 Family history of ischemic heart disease and other diseases of the circulatory system; Z86.73 Personal history of transient ischemic attack (TIA), and cerebral infarction without residual deficits; Z95.5 Presence of coronary angioplasty implant and graft; Z95.810 Presence of automatic (implantable) cardiac defibrillator; Z99.81 Dependence on supplemental oxygen; Z79.899 Other long term (current) drug therapy
CPT/HCPCS: 36415; 71045; 80048; 80053; 81003; 82550; 82553; 83036; 83605; 83735; 83880; 84484; 85025; 85610; 85730; 87040; 87070; 87086; 87205; 93005; 93306; 94640; 94660; 94667; 94760; 96374; 96375; 96376; 99291

== ENCOUNTER 2018-04-16 20:56 | Observation (INO) | payer MEDICARE ==
[2018-04-16] MEDS ORDERED: NITROGLYCERIN OINT 1 INCH/GM PACKET TOPICAL STA (21:16)
[2018-04-16] MEDS ORDERED: MORPHINE SULFATE 4 MG/ML SYRINGE IV STA (21:16)
--- NOTE | 2018-04-16 21:21 | ED ---
Chest Pain HPI - General Chief Complaint: Chest Pain Stated Complaint: Chest pain Time Seen by Provider: 04/16/18 20:58 Source: patient, EMS Mode of arrival: EMS - History of Present Illness Initial Comments: Patient is a 62-year-old male presenting for chest pain. He has an extensive history of CAD, hypertension, hyperlipidemia, smoking and states that today, he started having a sharp pressure in the middle of his chest with radiation to his left arm. It was intermittent and associated with nausea but no vomiting or diarrhea. He denies any cough or fevers or chills and states that his left leg is more swollen than normal and he was advised to come in by his visiting home nurse. - Related Data Home Medications Medication Instructions Recorded Confirmed Isosorbide Mononitrate ER [Imdur] 60 mg PO DAILY 04/25/17 04/16/18 Aspirin EC [Ecotrin] 325 mg PO DAILY 02/09/18 04/16/18 Atorvastatin [Lipitor] 40 mg PO HS 02/10/18 04/16/18 Furosemide [Lasix] 40 mg PO DAILY 02/10/18 04/16/18 Cyanocobalamin (Vitamin B-12) 1,000 mcg PO DAILY 04/16/18 04/16/18 [Vitamin B-12] Ipratropium-Albuterol Nebulize 3 ml INHALATION RT-TID 04/16/18 04/16/18 [Duoneb 0.5 mg-3 mg/3 ml Soln] oxyCODONE-APAP 7.5-325MG [Percocet 1 tab PO QID 04/16/18 04/16/18 7.5-325 mg] Previous Rx's Medication Instructions Recorded Clopidogrel [Plavix] 75 mg PO DAILY #30 tab 02/05/16 Losartan [Cozaar] 50 mg PO DAILY #30 tab 04/27/17 cloNIDine HCL [Catapres] 0.2 mg PO Q8HR #90 tab 05/17/17 Docusate [Colace] 100 mg PO BID PRN cap 02/21/18 Metoprolol Tartrate [Lopressor] 50 mg PO BID tab 02/21/18 Allergies Allergy/AdvReac Type Severity Reaction Status Date / Time No Known Allergies Allergy Verified 04/16/18 21:23 Review of Systems ROS Statement: Those systems with pertinent positive or pertinent negative responses have been documented in the HPI. Constitutional: Negative for chills, fatigue and fever. HENT: Negative for congestion. Respiratory: Negative for chest tightness, shortness of breath and wheezing. Negative for cough Cardiovascular: Positive for chest pain and negative for palpitations. Gastrointestinal: Negative for abdominal pain. Negative for abdominal distention , diarrhea, nausea and vomiting. Genitourinary: Negative for dysuria. Musculoskeletal: Negative for back pain, neck pain and neck stiffness. Positive for left leg swelling Skin: Negative for color change. Neurological: Negative for dizziness, speech difficulty, weakness and light- headedness. Psychiatric/Behavioral: Negative for agitation and confusion. Negative for anxiety ROS Other: All systems not noted in ROS Statement are negative. EKG Findings - EKG Comments: EKG Findings:: EKG shows normal sinus rhythm with a rate of 62, UT interval 164 , QRS 114, QTC 418. There are no significant ST depressions or elevations. Past Medical History Past Medical History: Coronary Artery Disease (CAD), Chest Pain / Angina, COPD, CVA/TIA, Hyperlipidemia, Hypertension, Myocardial Infarction (MT), Osteoarthritis (OA), Respiratory Disorder, Sleep Apnea/CPAP/BIPAP Additional Past Medical History / Comment(s): COPD, obesity, obesity hypoventilation syndrome, obstructive sleep apnea, suspected CHF and cor pulmonale, coronary artery disease with previous stenting of the LAD, previous history of AICD placement, osteoarthritis, CVA in 2004, chronic back pain secondary to degenerative disc disease and spinal canal stenosis, history of vertebral fracture L2 through L5, chronic lower extremity edema, diverticular disease, hyperlipidemia, hypertension, previous history of myocardial infarction ,, L knee fx in past and torn R rotator cuff. cellulitis. Last Myocardial Infarction Date:: 2011 History of Any Multi-Drug Resistant Organisms: None Reported Past Surgical History: AICD, Heart Catheterization With Stent, Hernia Repair Additional Past Surgical History / Comment(s): PTCA, PTCA with stent (4 total), 04/05/13 AICD 20x200 scientific, umbilical hernia repair, colonoscopy, circumcism, R eye surgery for strabismus. Past Anesthesia/Blood Transfusion Reactions: No Reported Reaction Date of Last Stent Placement:: 2012 Type of Cardiac Device: AICD Device Placement Date:: 04/05/13 Past Psychological History: No Psychological Hx Reported Smoking Status: Current some day smoker Past Alcohol Use History: None Reported Past Drug Use History: None Reported - Past Family History Father Family Medical History: Musculoskeletal Disorder, Neurologic Disorder Additional Family Medical History / Comment(s): Father had parkinson's dx and at age 84 yrs. Mother Family Medical History: Myocardial Infarction (MT) Additional Family Medical History / Comment(s): Mother had 3 vessel CABG. She of a massive MT at the age of 53 yrs. General Exam - General Exam Comments Initial Comments: Constitutional: Pt is oriented to person, place, and time. Pt appears well- developed and well-nourished. No distress. HENT: Head: Normocephalic and atraumatic. Eyes: EOM are normal. Neck: Normal range of motion. Neck supple. Cardiovascular: Normal rate, regular rhythm, S1 normal, S2 normal and normal heart sounds. Exam reveals no gallop and no friction rub. No murmur heard. Pulmonary/Chest: Effort normal and breath sounds normal. No tachypnea and no bradypnea. No respiratory distress. No wheezes or rales noted. Abdominal: Soft. Bowel sounds are normal. Pt exhibits no shifting dullness, no distension, no pulsatile liver, no fluid wave, no abdominal bruit and no ascites. There is no tenderness. There is no rigidity, no rebound, no guarding, no tenderness at McBurney's point and negative Bryant's sign. Musculoskeletal: Normal range of motion. Left leg diameter greater than that of the right. No tenderness to palpation Neurological: Pt is alert and oriented to person, place, and time. No cranial nerve deficit. Skin: Skin is warm and dry. No rash noted. Pt is not diaphoretic. No erythema. No pallor. Psychiatric: Pt has a normal mood and affect. Pt behavior is normal. Thought content normal. Course Vital Signs 04/16/18 04/16/18 04/16/18 21:06 21:30 22:00 Temperature 97.9 F Pulse Rate 68 61 60 Respiratory 16 18 18 Rate Blood Pressure 139/73 102/74 102/74 O2 Sat by Pulse 95 90 L Oximetry Chest Pain MDM - MDM Laboratory studies showed that there is no leukocytosis and from a cardiac standpoint, d-dimer was negative and troponin was not elevated. EKG showed no significant findings such as ST depressions or elevations and DP was also elevated. Chest x-ray was negative for infiltrate. Ultrasound of the left leg was also performed and noted to be negative. However, the patient has 6 significant past medical history the heart score of 4 and therefore the patient will be placed in observation for continued evaluation and treatment.Explained all labs and diagnostic test results and that we will admit patient to hospital. Pt is agreeable to plan and case has been discussed with Dr. Winn and they agree to accept the pt. Disposition Clinical Impression: Chest pain Disposition: ADMITTED IP TO THIS [facility] Condition: Fair Referrals: Yohan Anna MD [Primary Care Provider] - 1-2 days Decision to Admit Reason: Admit from EC Decision Date: 04/16/18 Decision Time: 22:57
[2018-04-16 21:47] LABS: Basophils % (A) 0 %; Eosinophils # (A) 0.3 k/uL (0-0.7); Eosinophils % (A) 4 %; HCT 43.9 % (39.0-53.0); HGB 14.1 gm/dL (13.0-17.5); Lymphocytes # (A) 2.3 k/uL (1.0-4.8); Lymphocytes % (A) 29 %; MCH 29.7 pg (25.0-35.0); MCHC 32.1 g/dL (31.0-37.0); MCV 92.6 fL (80.0-100.0); Mean Platelet Volume 7.2; Monocytes # (A) 0.5 k/uL (0-1.0); Monocytes % (A) 6 %; Neutrophils # (A) 4.6 k/uL (1.3-7.7); Neutrophils % (A) 58 %; Platelet Count 225 k/uL (150-450); RBC 4.74 m/uL (4.30-5.90); RDW 14.9 % (11.5-15.5)
[2018-04-16 22:00] LABS: ALT 30 U/L (21-72); AST 24 U/L (17-59); Albumin 3.6 g/dL (3.5-5.0); Alkaline Phosphatase 65 U/L (38-126); Anion Gap 5 mmol/L; Blood Urea Nitrogen 21 mg/dL (9-20); Calcium 9.4 mg/dL (8.4-10.2); Carbon Dioxide 32 mmol/L (22-30); Chloride 101 mmol/L (98-107); D-Dimer 0.35 mg/L FEU (<0.60); Glucose 90 mg/dL (74-99); INR 0.9 (<1.2); Partial Thromboplastin Time 24.6 sec (22.0-30.0); Potassium 4.6 mmol/L (3.5-5.1); Prothrombin Time 9.4 sec (9.0-12.0); Sodium 138 mmol/L (137-145); Total Bilirubin 0.4 mg/dL (0.2-1.3); Total Protein 6.6 g/dL (6.3-8.2)
--- NOTE | 2018-04-16 22:04 | US ---
EXAMINATION TYPE: US venous doppler duplex LE LT DATE OF EXAM: 04/16/2018 9:55 PM COMPARISON: NONE CLINICAL HISTORY: Pain and swelling. Foot macias, no hx of blood clots, on plavix and aspirin SIDE PERFORMED: Left TECHNIQUE: The lower extremity deep venous system is examined utilizing real time linear array sonog daniel with graded compression, doppler sonography and color-flow sonography. VESSELS IMAGED: External Iliac Vein (EIV) Common Femoral Vein Deep Femoral Vein Greater Saphenous Vein * Femoral Vein Popliteal Vein Small Saphenous Vein * Proximal Calf Veins (* superficial vessels) Limited visualization due to patient body habitus Left Leg: Negative for acute DVT IMPRESSION: No evidence of deep venous thrombosis in the left leg.
--- NOTE | 2018-04-16 22:06 | XR ---
EXAMINATION TYPE: XR chest 2V DATE OF EXAM: 04/16/2018 COMPARISON: 02/12/2018 HISTORY: Chest pain TECHNIQUE: Frontal and lateral views of the chest are obtained. FINDINGS: There is no heart failure nor confluent pneumonic infiltrate. Costophrenic angles are lenora r. There is left axillary pacemaker with the lead tips in the right ventricle. There is no sign of pl eural effusion. Bony thorax is intact. IMPRESSION: No active cardiopulmonary disease. No change.
[2018-04-16] MEDS ORDERED: HYDROmorphone 1 MG/ML 1 ML SYRINGE IVP STA (22:51)
[2018-04-16] MEDS ORDERED: NALOXONE 0.4 MG/ML 1 ML VIAL IV PRN (22:51)
[2018-04-16] MEDS ORDERED: ASPIRIN 81 MG PO STA (22:51)
[2018-04-17] MEDS: HYDROmorphone 1 MG/ML 1 ML SYRINGE IVP PRN ×6 (01:17→20:58)
--- NOTE | 2018-04-17 08:20 | P.CRDCN ---
History of Present Illness Consult date: 04/17/18 Chief complaint: Chest pain History of present illness: This is a 62-year-old gentleman with an extensive past medical history consistent of coronary artery disease and prior coronary artery stenting with details are unavailable at this point, chronic diastolic congestive heart failure, obstructive sleep apnea, and history of permanent pacemaker, was referred to the emergency room by his visiting nurse for further evaluation of chest discomfort. The patient does have chronic back pain secondary to degenerative disease but for the last several weeks the pain in the back was getting worse. Yesterday he did have an episode of chest discomfort, across the chest, as a pressure on the chest, he described also as a charley horse, lasted for few minutes. Because of that, he was referred to come to the emergency room. Currently the patient is chest pain-free. Beside that he has been noticing increasing in the bilateral lower extremities edema. Denies having any exertional dyspnea or orthopnea. Please note that the patient does have very poor functional capacity for his age and he only can walk with a walker because of the pain in the back. The EKG showed sinus rhythm with nonspecific changes. The cardiac enzymes were checked and came in to be unremarkable. The patient continues to be chest pain- free. The patient did have an echocardiogram in January 2018 and that revealed normal LV function without any significant valve disease. Giving the patient asymptomatic state and poor functional capacity, I would recommend trying maximize medical treatment at this point of time and consider stress test if he developed any more episodes of chest discomfort. I am going to add oral nitrates the current medical regimen. Also I would DC the Lasix by mouth and start the patient on Lasix IV with continuous monitoring the kidney function and electrolytes. I do feel that the patient does have mild congestive heart failure secondary to diastole dysfunction. Past Medical History Past Medical History: Coronary Artery Disease (CAD), Chest Pain / Angina, COPD, CVA/TIA, Hyperlipidemia, Hypertension, Myocardial Infarction ([place]), Osteoarthritis (OA), Respiratory Disorder, Sleep Apnea/CPAP/BIPAP Additional Past Medical History / Comment(s): COPD, obesity, obesity hypoventilation syndrome, obstructive sleep apnea, suspected CHF and cor pulmonale, coronary artery disease with previous stenting of the LAD, previous history of AICD placement, osteoarthritis, CVA in 2004, chronic back pain secondary to degenerative disc disease and spinal canal stenosis, history of vertebral fracture L2 through L5, chronic lower extremity edema, diverticular disease, hyperlipidemia, hypertension, previous history of myocardial infarction ,, L knee fx in past and torn R rotator cuff. cellulitis. Last Myocardial Infarction Date:: 2011 History of Any Multi-Drug Resistant Organisms: None Reported Past Surgical History: AICD, Heart Catheterization With Stent, Hernia Repair Additional Past Surgical History / Comment(s): PTCA with stent (4 total), AICD [employer], 1989' umbilical hernia repair, colonoscopy, circumcism, R eye surgery for strabismus. Past Anesthesia/Blood Transfusion Reactions: No Reported Reaction Date of Last Stent Placement:: 2012 Type of Cardiac Device: AICD Device Placement Date:: 04/05/13 Past Psychological History: No Psychological Hx Reported Smoking Status: Current some day smoker Past Alcohol Use History: None Reported Past Drug Use History: None Reported - Past Family History Father Family Medical History: Musculoskeletal Disorder, Neurologic Disorder Additional Family Medical History / Comment(s): Father had parkinson's dx and at age 84 yrs. Mother Family Medical History: Myocardial Infarction (DE) Additional Family Medical History / Comment(s): Mother had 3 vessel CABG. She of a massive [place] at the age of 53 yrs. Medications and Allergies Home Medications Medication Instructions Recorded Confirmed Type Clopidogrel [Plavix] 75 mg PO DAILY #30 tab 02/05/16 04/16/18 Rx Isosorbide Mononitrate ER [Imdur] 60 mg PO DAILY 04/25/17 04/16/18 History Losartan [Cozaar] 50 mg PO DAILY #30 tab 04/27/17 04/16/18 Rx cloNIDine HCL [Catapres] 0.2 mg PO Q8HR #90 tab 05/17/17 04/16/18 Rx Aspirin EC [Ecotrin] 325 mg PO DAILY 02/09/18 04/16/18 History Atorvastatin [Lipitor] 40 mg PO HS 02/10/18 04/16/18 History Furosemide [Lasix] 40 mg PO DAILY 02/10/18 04/16/18 History Docusate [Colace] 100 mg PO BID PRN cap 02/21/18 04/17/18 Rx Metoprolol Tartrate [Lopressor] 50 mg PO BID tab 02/21/18 04/16/18 Rx Cyanocobalamin (Vitamin B-12) 1,000 mcg PO DAILY 04/16/18 04/16/18 History [Vitamin B-12] Ipratropium-Albuterol Nebulize 3 ml INHALATION RT-TID 04/16/18 04/17/18 History [Duoneb 0.5 mg-3 mg/3 ml Soln] oxyCODONE-APAP 7.5-325MG [Percocet 1 tab PO QID PRN 04/16/18 04/16/18 History 7.5-325 mg] Allergies Allergy/AdvReac Type Severity Reaction Status Date / Time No Known Allergies Allergy Verified 04/17/18 00:05 Physical Exam Vitals: Vital Signs Temp Pulse Pulse Resp BP BP Pulse Ox 04/17/18 07:30 97.7 F 77 18 118/71 91 L 04/17/18 04:00 18 04/17/18 03:56 98.4 F 67 18 114/67 90 L 04/17/18 00:00 97.5 F L 70 16 140/78 100 04/16/18 23:13 68 18 110/53 95 04/16/18 22:00 60 18 102/74 90 L 04/16/18 21:30 61 18 102/74 04/16/18 21:06 97.9 F 68 16 139/73 95 Intake and Output 04/16/18 04/17/18 04/17/18 22:59 06:59 14:59 Other: Voiding Method Toilet # Voids 2 Weight 167.829 kg - Constitutional General appearance: no acute distress - Respiratory Respiratory: bilateral: diminished - Cardiovascular Rhythm: regular Heart sounds: normal: S1, S2 Results 04/16/18 21:13 04/16/18 21:13 Cardiac Enzymes 04/16/18 04/16/18 04/17/18 Range/Units 21:13 21:13 03:07 AST 24 (17-59) U/L Troponin I <0.012 <0.012 (0.000-0.034) ng/mL Coagulation 04/16/18 Range/Units 21:13 PT 9.4 (9.0-12.0) sec APTT 24.6 (22.0-30.0) sec CBC 04/16/18 Range/Units 21:13 WBC 8.0 (3.8-10.6) k/uL RBC 4.74 (4.30-5.90) m/uL Hgb 14.1 (13.0-17.5) gm/dL Hct 43.9 (39.0-53.0) % Plt Count 225 (150-450) k/uL Comprehensive Metabolic Panel 04/16/18 Range/Units 21:13 Sodium 138 (137-145) mmol/L Potassium 4.6 (3.5-5.1) mmol/L Chloride 101 (98-107) mmol/L Carbon Dioxide 32 H (22-30) mmol/L BUN 21 H (9-20) mg/dL Creatinine 0.96 (0.66-1.25) mg/dL Glucose 90 (74-99) mg/dL Calcium 9.4 (8.4-10.2) mg/dL AST 24 (17-59) U/L ALT 30 (21-72) U/L Alkaline Phosphatase 65 (38-126) U/L Total Protein 6.6 (6.3-8.2) g/dL Albumin 3.6 (3.5-5.0) g/dL Current Medications Generic Name Dose Route Start Last Admin Trade Name Freq PRN Reason Stop Dose Admin Hydromorphone HCl 1 mg 04/16/18 22:51 04/17/18 05:03 Dilaudid IVP 1 mg Q3HR PRN Administration Severe Pain Naloxone HCl 0.2 mg 04/16/18 22:51 Narcan IV Q2M PRN Opioid Reversal Intake and Output 04/16/18 04/17/18 04/17/18 22:59 06:59 14:59 Other: Voiding Method Toilet # Voids 2 Weight 167.829 kg 04/16/18 21:13 04/16/18 21:13 Assessment and Plan Assessment: Assessment #1 atypical chest discomfort #2 known CAD with prior coronary artery stenting #3 congestive heart failure exacerbation secondary to diastole dysfunction #4 possible bilateral lower extremity cellulitis #5 status post permanent pacemaker implantation #6 multiple comorbid conditions Plan #1 DC the Lasix by mouth and start the patient on Lasix IV #2 add oral nitrates to the current medical regimen #3 continue monitoring her kidney function and electrolytes #4 follow-up with the patient. Thank you for allowing us participate in his care and we'll continue following up with the patient
[2018-04-17] MEDS ORDERED: FUROSEMIDE 10 MG/ML 4 ML VIAL IV SCH (09:00)
[2018-04-17] MEDS: FUROSEMIDE 10 MG/ML 4 ML VIAL IV SCH (09:08)
[2018-04-17] MEDS: ISOSORBIDE MONONITRATE ER 30 MG TAB.ER.24H PO SCH (09:09)
[2018-04-17] MEDS ORDERED: DOCUSATE 100 MG CAP PO PRN (11:09)
[2018-04-17] MEDS: CLOPIDOGREL 75 MG TAB PO SCH (11:27)
[2018-04-17] MEDS: CYANOCOBALAMIN 500 MCG TAB PO SCH (11:27)
[2018-04-17] MEDS: ASPIRIN 325 MG TAB PO SCH (11:27)
[2018-04-17] MEDS: cloNIDine HCL 0.2 MG TAB PO SCH ×3 (11:57→22:59)
[2018-04-17] MEDS: LOSARTAN 50 MG TAB PO SCH (15:50)
--- NOTE | 2018-04-17 16:51 | HP ---
HISTORY AND PHYSICAL DATE OF ADMISSION: 04/16/2018 DATE OF SERVICE: 04/17/2018 PRESENTING COMPLAINT: Chest pain. HISTORY OF PRESENTING COMPLAINT: This is a pleasant 62-year-old patient whose chronic stable medical conditions include coronary artery disease with stent, hypertension, hyperlipidemia, obstructive sleep apnea, diverticulosis, arthritis, chronic lumbar pain at L2 to L5, chronic fractures, AICD. The patient does follow up with Dr. Avery from Cardiology and also Dr. Cuadra as his family doctor. Patient presents with swelling of the lower extremities, more so the left lower extremity, going on for a few days with some oozing of clear liquid. No fever. No chills. There is no significant redness. Doppler ultrasound ruled out DVT. Patient also complained of some left precordial chest pain. There was no radiation to the neck or arm. No dizziness. No lightheadedness. Shortness of breath is no different from the baseline. Patient denies any fever or chills. Appetite is fair. REVIEW OF SYSTEMS: CONSTITUTIONAL: Tired. HEENT: None. RESPIRATORY: Baseline shortness of breath. CARDIOVASCULAR: As above. GASTROINTESTINAL: None. GENITOURINARY: None. MUSCULOSKELETAL: Arthritic pain in many joints. DERMATOLOGICAL: As above. LYMPHATICS: None. PSYCHIATRY: None. NEUROLOGICAL: None. PAST MEDICAL HISTORY: 1. Lower extremity cellulitis. 2. COPD in an ex-smoker. 3. Congestive heart failure from diastolic dysfunction. 4. Obesity hypoventilation syndrome. 5. Coronary artery disease with prior stent. 6. Hyperlipidemia. 7. Hypertension. 8. AICD. 9. Chronic low back pain, L2 to L5, with chronic fractures. 10.Morbid obesity. 11.Chronic hypoxic respiratory failure, on 2 L oxygen. 12.Torn right rotator cuff. PAST SURGICAL HISTORY: 1. AICD. 2. Cardiac cath with stent. 3. Umbilical hernia repair. 4. Circumcision. 5. Right eye surgery for strabismus. SOCIAL HISTORY: Lives alone. Has a caregiver. Has a roommate. Does smoke occasionally. No alcohol. FAMILY HISTORY: Father had Parkinson disease. HOME MEDICATIONS: 1. DuoNeb t.i.d. 2. Colace 100 mg b.i.d. p.r.n. 3. Percocet 7.5 one tablet p.o. q.i.d. p.r.n. 4. Catapres 0.2 mg q.8 p.r.n. 5. Lopressor 50 mg p.o. b.i.d. 6. Cozaar 50 mg p.o. daily. 7. Imdur ER 60 mg a day. 8. Lasix 40 mg p.o. daily. 9. Vitamin B12 1000 mcg p.o. daily. 10.Plavix 75 mg p.o. daily. 11.Lipitor 40 mg at bedtime. 12.Aspirin 325 mg p.o. daily. ALLERGIES: NONE. PHYSICAL EXAMINATION: VITAL SIGNS ON PRESENTATION: Temperature 97.9, pulse 68, respiration 16, blood pressure 139/73, pulse ox 95% on room air. GENERAL APPEARANCE: Well built; BMI 50.2. Lying in bed, not in distress. EYES: Pupils equal. Conjunctivae normal. HEENT: External appearance of nose and ears normal. Oral cavity normal. NECK: Short, thick. JVD unable to assess. Mass not palpable. RESPIRATORY: Effort increased. LUNGS: Fair air entry. CARDIOVASCULAR: Heart sounds muffled. Edema present, more so in the left leg. ABDOMEN: Distended, soft. Liver and spleen not palpable. LYMPHATIC: No lymph node palpable in neck or axillae. PSYCHIATRY: Alert and oriented x3. Mood and affect normal. NEUROLOGICAL: Pupils equal. Cranial nerves grossly intact. Power and sensation grossly intact. LOWER EXTREMITIES: Swelling of the left lower extremity more than the right with some edema. No obvious evidence of cellulitis. INVESTIGATIONS: White count 8, hemoglobin 14.1, platelets 225. Potassium 4.6, BUN 21, creatinine 0.96. Troponin x3 negative. ProBNP 67. Chest x-ray film, personally reviewed by me, shows cardiomegaly. Lung higgins are relatively clear. EKG tracing, personally reviewed by me, shows normal sinus rhythm. ASSESSMENT: 1. Left anterior chest wall pain, possible unstable angina in a patient with known coronary artery disease. 2. Chronic obstructive pulmonary disease in an ex-smoker. 3. Chronic congestive heart failure from diastolic dysfunction, ejection fraction 55% to 60%, from underlying coronary artery disease. 4. Doubt acute congestive heart failure, as patient's lung higgins appear to be relatively clear and patient's proBNP is only 67. 5. Obesity hypoventilation syndrome. 6. Coronary artery disease with prior history of stent. 7. Hyperlipidemia. 8. Essential hypertension. 9. Automated implantable cardioverter defibrillator. 10.Chronic low back pain from L2 to L5 with chronic fractures. 11.Morbid obesity; body mass index 50.2. 12.Chronic hypoxic respiratory failure, on 2 L oxygen at home, from underlying chronic obstructive pulmonary disease. 13.Hypertensive heart disease. 14.Bilateral lower extremity venous insufficiency, more pronounced in the left lower extremity. PLAN: Patient did get IV Lasix. Home medications are resumed. Will use Kerlix and Manpreet wrap. Keep a close eye on electrolytes. Cardiology was consulted. Serial cardiac enzymes have been negative x3. MMODL / IJN: [id number] /
[2018-04-17] MEDS: IPRATROPIUM-ALBUTEROL 3 ML NEB INHALATION SCH ×2 (17:24→20:23)
[2018-04-17] MEDS: oxyCODONE-APAP 7.5-325MG 1 EACH TAB PO PRN ×2 (18:03→23:12)
[2018-04-17] MEDS: METOPROLOL TARTRATE 50 MG TAB PO SCH (20:58)
[2018-04-17] MEDS ORDERED: ATORVASTATIN 40 MG TAB PO SCH (21:00)
[2018-04-18 00:24] VITALS: RESP 18
[2018-04-18] MEDS: HYDROmorphone 1 MG/ML 1 ML SYRINGE IVP PRN ×2 (02:18→05:00)
[2018-04-18] MEDS: IPRATROPIUM-ALBUTEROL 3 ML NEB INHALATION SCH (07:27)
[2018-04-18] MEDS: ISOSORBIDE MONONITRATE ER 30 MG TAB.ER.24H PO SCH (08:36)
[2018-04-18] MEDS: oxyCODONE-APAP 7.5-325MG 1 EACH TAB PO PRN (08:36)
[2018-04-18] MEDS: CLOPIDOGREL 75 MG TAB PO SCH (08:36)
[2018-04-18] MEDS: LOSARTAN 50 MG TAB PO SCH (08:37)
[2018-04-18] MEDS: ASPIRIN 325 MG TAB PO SCH (08:37)
[2018-04-18] MEDS: CYANOCOBALAMIN 500 MCG TAB PO SCH (08:37)
[2018-04-18] MEDS: cloNIDine HCL 0.2 MG TAB PO SCH (08:38)
[2018-04-18] MEDS: METOPROLOL TARTRATE 50 MG TAB PO SCH (08:38)
[2018-04-18] MEDS ORDERED: FUROSEMIDE 40 MG TAB PO SCH (09:15)
[2018-04-18 10:08] LABS: Anion Gap 9 mmol/L; Blood Urea Nitrogen 21 mg/dL (9-20); Calcium 9.3 mg/dL (8.4-10.2); Carbon Dioxide 30 mmol/L (22-30); Chloride 99 mmol/L (98-107); Glucose 107 mg/dL (74-99); Potassium 4.3 mmol/L (3.5-5.1); Sodium 138 mmol/L (137-145)
[2018-04-18] MEDS: FUROSEMIDE 10 MG/ML 4 ML VIAL IV SCH (11:40)
[2018-04-18 11:50] VITALS: BP 91/57; PULSE 60; TEMP 98.3
--- NOTE | 2018-04-18 12:45 | P.PN ---
Subjective This is a pleasant 62-year-old male past medical history significant for coronary artery disease s/p stenting LAD, chronic diastolic heart failure, s /p permanent pacemaker implantation, obstructive sleep apnea, CVA and cor pulmonale. He has followed with Dr. Gutierrez in the past. He was given IV lasix yesterday secondary to lower extremity edema. He denies any further symptoms of chest pain, shortness of breath, dizziness or palpitations. Data reviewed, sodium 138, potassium 4.3, creatinine 0.92. Blood pressure 91/57 heart rate 60 afebrile maintaining oxygen saturation on room air. He continues to complain of bilateral lower extremity pain and burning, states it feels similar to when he has had cellulitis in the past. GENERAL: Well-appearing, well-nourished and in no acute distress. NECK: Supple without JVD or thyromegaly. LUNGS: Breath sounds clear to auscultation bilaterally. Respiration equal and unlabored. No wheezes, rales or rhonchi. HEART: Regular rate and rhythm without murmurs, rubs or gallops. S1 and S2 heard. EXTREMITIES: Ongoing lower extremity edema with purple discoloration. Normal range of motion. No clubbing or cyanosis. Peripheral pulses intact. ASSESSMENT Chest pain, atypical. An acute event has been ruled out. History of coronary artery disease, stenting of LAD Mild exacerbation of chronic diastolic heart failure Possible lower extremity cellulitis not entirely rule out. Permanent pacemaker implantation PLAN Stable from a cardiac perspective. No further symptoms of chest discomfort. Ongoing medical management of lower extremity possible cellulitis. Outpatient stress test scheduled in the office. Nurse Practitioner note has been reviewed, I agree with a documented findings and plan of care. Patient was seen and examined. Objective - Vital Signs Vital signs: Vital Signs Temp 98.3 F 04/18/18 11:49 Pulse 60 04/18/18 11:49 Resp 18 04/18/18 11:49 BP 91/57 04/18/18 11:49 Pulse Ox 95 04/18/18 11:49 Intake & Output 04/17/18 04/18/18 04/18/18 18:59 06:59 18:59 Intake Total 200 400 240 Output Total 850 Balance 200 -450 240 Intake: Oral 200 240 Tube Feeding 400 Output: Urine 850 Other: Voiding Method Toilet Toilet Toilet Urinal Urinal # Voids 2 - Labs CBC & Chem 7: 04/16/18 21:13 04/18/18 08:12 Labs: Abnormal Lab Results - Last 24 Hours (Table) 04/18/18 Range/Units 08:12 BUN 21 H (9-20) mg/dL Glucose 107 H (74-99) mg/dL
--- NOTE | 2018-04-19 07:50 | DS ---
DISCHARGE SUMMARY DATE OF ADMISSION: 04/16/2018. DATE OF DISCHARGE: 04/18/2018 FINAL DIAGNOSES: 1. Left anterior chest wall pain, could be musculoskeletal. 2. Chronic obstructive pulmonary disease in an ex-smoker. 3. Chronic congestive heart failure from diastolic dysfunction. Ejection fraction 55%- 60% from underlying coronary artery disease. 4. No acute congestive heart failure as patient's BNP is only 67 and lung higgins are clear on x-ray. 5. Obesity hypoventilation syndrome. 6. Coronary artery disease, prior history of stent. 7. Hyperlipidemia. 8. Essential hypertension. 9. AICD. 10.Chronic low back pain from L2 through L5 with chronic fractures. 11.Morbid obesity, body mass index of 50.2. 12.Chronic hypoxic respiratory failure on 2 L oxygen at home from underlying chronic obstructive pulmonary disease. 13.Hypertensive heart disease. 14.Acute exacerbation of bilateral lower extremity venous insufficiency causing increased edema. HOSPITAL COURSE: This patient presented with chest pain. There was lower extremity venous edema felt to be exacerbated. No evidence of CHF: was done per Cardiology. No further changes. Care was discussed. The patient told to wear Manpreet wraps. Overall, doing much better. PHYSICAL EXAMINATION: Temperature 98.3, pulse 67, respiration 18, blood pressure 98/57, pulse ox 95% on room air BUN. LABS: BUN 21, creatinine 0.92. Troponins were negative. DISCHARGE MEDICATIONS: 1. Plavix 75 mg a day. 2. Imdur ER 60 mg a day. 3. Cozaar 50 mg a day. 4. Catapres 0.2 mg q.8. 5. Lipitor 40 mg q.h.s. 6. Lasix 40 mg p.o. daily. 7. Colace 100 mg b.i.d. p.r.n. 8. Lopressor 50 mg p.o. b.i.d. 9. Vitamin B12 1000 mcg p.o. daily. 10.DuoNeb 3 mL t.i.d. 11.Percocet 7.5 one tablet p.o. q.i.d. p.r.n. 12.Aspirin 81 mg p.o. daily. FOLLOWUP: Follow up with Dr. Yohan aPtino from [facility] in 2 days. Follow up with Dr. Ze Gutierrez in 3 weeks. The patient to be sent home with Manpreet wraps on both the legs. MMISAAC / CHASITYN: [id number] /
== END 2018-04-18 13:06 | disposition home or self-care (01) ==
LOC: EC 20:56 → 1SOBS 22:51
PROVIDERS: ADMIT Hospitalist; ATTEND Hospitalist
DX: R07.89 Other chest pain (principal); I25.10 Atherosclerotic heart disease of native coronary artery without angina pectoris; E78.5 Hyperlipidemia, unspecified; I11.0 Hypertensive heart disease with heart failure; I50.32 Chronic diastolic (congestive) heart failure; E66.2 Morbid (severe) obesity with alveolar hypoventilation; R11.0 Nausea; I27.81 Cor pulmonale (chronic); I87.2 Venous insufficiency (chronic) (peripheral); K57.90 Diverticulosis of intestine, part unspecified, without perforation or abscess without bleeding; M19.90 Unspecified osteoarthritis, unspecified site; J96.11 Chronic respiratory failure with hypoxia; M84.48XA Pathological fracture, other site, initial encounter for fracture; Z79.82 Long term (current) use of aspirin; Z79.02 Long term (current) use of antithrombotics/antiplatelets; Z79.899 Other long term (current) drug therapy; J44.9 Chronic obstructive pulmonary disease, unspecified; Z86.73 Personal history of transient ischemic attack (TIA), and cerebral infarction without residual deficits; I25.2 Old myocardial infarction; Z95.0 Presence of cardiac pacemaker; F17.200 Nicotine dependence, unspecified, uncomplicated; Z68.43 Body mass index [BMI] 50.0-59.9, adult; Z95.5 Presence of coronary angioplasty implant and graft; Z82.0 Family history of epilepsy and other diseases of the nervous system; Z82.49 Family history of ischemic heart disease and other diseases of the circulatory system; Z99.81 Dependence on supplemental oxygen
CPT/HCPCS: 96375 ×2; 96376 ×2; 96374; 99285; 36415; 94640 ×3; 85379; 83880; 80053; 80048; 83735; 84484 ×2; 85025; 85610; 85730; 71046; 93971; G0378 ×3; J2270; J1940; J1170 ×3

== ENCOUNTER 2018-10-21 21:36 | Observation (INO) | payer MEDICARE ==
[2018-10-21] MEDS ORDERED: ASPIRIN 81 MG PO STA (22:02)
[2018-10-21] MEDS ORDERED: MORPHINE SULFATE 4 MG/ML SYRINGE IV STA (22:02)
[2018-10-21] MEDS ORDERED: ONDANSETRON 4 MG/2 ML VIAL IVP STA (22:02)
[2018-10-21] MEDS ORDERED: IPRATROPIUM-ALBUTEROL 3 ML NEB INHALATION STA (22:03)
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
[2018-10-21 22:17] LABS: Basophils % (A) 0 %; Eosinophils # (A) 0.2 k/uL (0-0.7); Eosinophils % (A) 2 %; HCT 46.7 % (39.0-53.0); HGB 15.5 gm/dL (13.0-17.5); Lymphocytes # (A) 2.4 k/uL (1.0-4.8); Lymphocytes % (A) 23 %; MCH 29.5 pg (25.0-35.0); MCHC 33.3 g/dL (31.0-37.0); MCV 88.7 fL (80.0-100.0); Mean Platelet Volume 7.5; Monocytes # (A) 0.5 k/uL (0-1.0); Monocytes % (A) 5 %; Neutrophils # (A) 6.9 k/uL (1.3-7.7); Neutrophils % (A) 68 %; Platelet Count 209 k/uL (150-450); RBC 5.26 m/uL (4.30-5.90); RDW 14.6 % (11.5-15.5); WBC 10.1 k/uL (3.8-10.6)
[2018-10-21 22:26] LABS: INR 0.9 (<1.2); Prothrombin Time 9.7 sec (9.0-12.0)
[2018-10-21 22:27] LABS: ALT 24 U/L (21-72); AST 24 U/L (17-59); Albumin 3.8 g/dL (3.5-5.0); Alkaline Phosphatase 67 U/L (38-126); Anion Gap 6 mmol/L; Blood Urea Nitrogen 21 mg/dL (9-20); Calcium 9.8 mg/dL (8.4-10.2); Carbon Dioxide 27 mmol/L (22-30); Chloride 107 mmol/L (98-107); Glucose 112 mg/dL (74-99); Magnesium 1.9 mg/dL (1.6-2.3); Potassium 4.7 mmol/L (3.5-5.1); Sodium 140 mmol/L (137-145); Total Bilirubin 0.4 mg/dL (0.2-1.3); Total Protein 6.6 g/dL (6.3-8.2)
[2018-10-21] MEDS ORDERED: HEPARIN SODIUM,PORCINE 5,000 UNIT/ML 1 ML VIAL IV ONE (22:55)
[2018-10-21] MEDS ORDERED: NITROGLYCERIN SL TABS 0.4 MG TAB SUBLINGUAL PRN (22:55)
[2018-10-21] MEDS ORDERED: DIAZEPAM 5 MG/ML 2 ML INJ IVP STA (22:57)
[2018-10-21] MEDS ORDERED: HEPARIN SOD,PORK IN 0.45% NACL 25,000 UNIT in 0.45% NACL 1 250ML.BAG IV SCH (23:00)
--- NOTE | 2018-10-21 23:16 | XR ---
EXAM: XR Chest, 2 Views CLINICAL HISTORY: ITS.REASON XR Reason: Chest Pain TECHNIQUE: Frontal and lateral views of the chest. COMPARISON: No relevant prior studies available. FINDINGS: Lungs: Unremarkable. No consolidation. Pleural space: Unremarkable. No pneumothorax. Heart: No suspicious enlargement. Mediastinum: Unremarkable. Bones/joints: No acute fracture. IMPRESSION: No acute findings.
[2018-10-22] MEDS ORDERED: DOCUSATE 100 MG CAP PO PRN (00:21)
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
[2018-10-22 01:40] VITALS: BMI 49.4
[2018-10-22] MEDS: MORPHINE SULFATE 4 MG/ML SYRINGE IV PRN ×3 (01:40→20:11)
[2018-10-22] MEDS: oxyCODONE-APAP 7.5-325MG 1 EACH TAB PO PRN ×4 (04:26→21:36)
[2018-10-22 05:57] LABS: Mean Platelet Volume 7.8; Platelet Count 189 k/uL (150-450)
[2018-10-22 06:09] LABS: Cholesterol 109 mg/dL (<200); HDL Cholesterol 33 mg/dL (40-60); LDL Cholesterol,Calculated 56 mg/dL (0-99); Triglycerides 101 mg/dL (<150)
[2018-10-22] MEDS: FUROSEMIDE 40 MG TAB PO SCH (08:20)
[2018-10-22] MEDS: ISOSORBIDE MONONITRATE ER 60 MG TAB.ER.24H PO SCH (08:20)
[2018-10-22] MEDS: ASPIRIN 325 MG TAB PO SCH (08:20)
[2018-10-22] MEDS: METOPROLOL TARTRATE 25 MG TAB PO SCH ×2 (08:20→20:11)
[2018-10-22] MEDS: LOSARTAN 50 MG TAB PO SCH (08:20)
[2018-10-22] MEDS: CLOPIDOGREL 75 MG TAB PO SCH (08:20)
[2018-10-22] MEDS: IPRATROPIUM-ALBUTEROL 3 ML NEB INHALATION PRN ×2 (08:35→12:08)
--- NOTE | 2018-10-22 08:57 | XR ---
Lumbar spine HISTORY: Low back pain 3 views of the lumbar spine correlated to prior exam 11/14/2010 There is multilevel spondylosis as on prior exam. Lumbar vertebral bodies show preserved height, alig nment, and bone mineralization. Loss of disc height present at the intervertebral levels. Sclerosis p resent in the posterior elements of the lower lumbar spine. Dense vascular calcifications are noted i ncidentally. IMPRESSION: Degenerative disc disease and facet arthropathy.
[2018-10-22] MEDS ORDERED: SALINE NASAL GEL 14.1 GM TUBE TOPICAL PRN (10:08)
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
--- NOTE | 2018-10-22 12:47 | P.PN ---
Subjective Progress Note Date: 10/22/18 Patient seen and examined and follow-up, sitting in chair bedside. Reports that his chest pain has resolved, denies any shortness of air nausea or vomiting. Does complain of lower back pain recently back from his lumbar x-ray from radiology. No acute events overnight initial and subsequent troponins have been negative. Objective - Vital Signs Vital signs: Vital Signs Temp 97.7 F 10/22/18 08:18 Pulse 66 10/22/18 12:20 Resp 18 10/22/18 12:06 BP 125/70 10/22/18 12:06 Pulse Ox 93 L 10/22/18 12:06 Intake & Output 10/21/18 10/22/18 10/22/18 18:59 06:59 18:59 Output Total 1200 Balance -1200 Weight 165.4 kg Output: Urine 1200 Other: Voiding Method Toilet # Voids 1 - Exam Constitutional: No acute distress, conversant, pleasant Eyes: Anicteric sclerae, moist conjunctiva, no lid-lag, PERRLA ENMT: NC/AT,Oropharynx clear, no erythema, exudates Neck:Supple, FROM, no masses, or JVD, No carotid bruits; No thyromegaly Lungs: Clear to auscultation, Clear to percussion, Normal respiratory effort, no accessory muscle use Cardiovascular: Heart regular in rate and rhythm, No murmurs, gallops, or rubs no peripheral edema Abdominal: Soft Nontender, nom distended, no guarding, no rebound or rigidity, Normoactive bowel sounds No hepatomegaly, No splenomegaly, No palpable mass No abdominal wall hernia noted Skin: Normal temperature, tone, texture, turgor, No induration No subcutaneous nodules, No rash, lesions, No ulcers Extremities:No digital cyanosis No clubbing, Pedal pulses intact and symmetrical Radial pulses intact and symmetrical Normal gait and station, No calf tenderness Psychiatric: Alert and oriented to person, place and time, Appropriate affect Intact judgement Neuro: Muscles Strength 5/5 in all 4 extremities, Sensation to light touch grossly present throughout, Cranial nerves II-XII grossly intact. No focal sensory deficits - Labs CBC & Chem 7: 10/22/18 05:29 10/21/18 22:03 Labs: Abnormal Lab Results - Last 24 Hours (Table) 10/21/18 10/22/18 10/22/18 Range/Units 22:03 05:29 05:29 APTT 30.3 H (22.0-30.0) sec BUN 21 H (9-20) mg/dL Glucose 112 H (74-99) mg/dL HDL Cholesterol 33 L (40-60) mg/dL Assessment and Plan (1) Atypical chest pain Narrative/Plan: * Currently chest pain-free * EKG showing some T-wave inversions in lateral leads suggestive of dynamic changes, troponins have been negative 2 * Appreciate cardiology recommendations we'll continue to monitor the patient, follow up echocardiogram results * Continue dual antiplatelet therapy, statin regimen, beta cortez and currently on heparin drip Current Visit: Yes Status: Acute Code(s): R07.89 - OTHER CHEST PAIN SNOMED Code(s): 958549029 (2) Coronary artery disease Narrative/Plan: * History of stenting * Continue regimen as above Current Visit: Yes Status: Acute Code(s): I25.10 - ATHSCL HEART DISEASE OF [place] CORONARY ARTERY W/O ANG PCTRS SNOMED Code(s): 26762545 (3) Diastolic CHF Narrative/Plan: * Stable euvolemic exam Without Any Signs of Acute Exacerbation * Continue regimen of Lopressor, losartan and Lasix * Repeat echocardiogram pending Current Visit: No Status: Acute Code(s): I50.30 - UNSPECIFIED DIASTOLIC (CONGESTIVE) HEART FAILURE SNOMED Code(s): 034302118 (4) Hypertension Narrative/Plan: * Blood pressure stable controlled on current regimen Current Visit: No Status: Chronic Code(s): I10 - ESSENTIAL (PRIMARY) HYPERT ENSION SNOMED Code(s): 75296763 (5) Lumbar degenerative disc disease Narrative/Plan: * Lumbar x-ray showing degenerative disc disease with facet arthropathy, orthopedic consult pending * Continue with pain management currently on Percocet Current Visit: Yes Status: Acute Code(s): M51.36 - OTHER INTERVERTEBRAL DISC DEGENERATION, LUMBAR REGION SNOMED Code(s): 09949457 Plan: Anticipated discharge 1-2 days, follow-up repeat EKG and cardiac enzymes and echocardiogram results
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
--- NOTE | 2018-10-22 14:51 | ECHOF ---
Referral Reason:cp MEASUREMENTS -------- HEIGHT: 154.9 cm WEIGHT: 163.3 kg BP: IVSd: 1.6 cm (0.6 - 1.1) LVIDd: 3.9 cm (3.9 - 5.3) LVPWd: 1.4 cm (0.6 - 1.1) IVSs: 2.5 cm LVIDs: 2.8 cm LVPWs: 1.7 cm Ao Diam: 3.8 cm (2.0 - 3.7) AV Cusp: 1.9 cm (1.5 - 2.6) LA Diam: 3.4 cm (2.7 - 3.8) MV E Ma[place]: 0.59 m/s MV DecT: 278 ms MV A [place]: 0.39 m/s MV E/A Ratio: 1.53 RAP: 5.00 mmHg RVSP: 9.86 mmHg FINDINGS -------- Sinus rhythm. This was a technically difficult study with suboptimal views. The left ventricular size is normal. There is moderate concentric left ventricular hypertrophy. O verall left ventricular systolic function is low-normal with, an EF between 50 - 55 %. The RV was not well visualized. The left atrium was not well visualized. The right atrium was not well visualized. xx ml of Lumason was utilized for enhancement of images. The aortic valve was not well visualized. The mitral valve was not well visualized. The tricuspid valve was not well visualized. The pulmonic valve was not well visualized. The aortic root is dilated measuring 3.8 CM CONCLUSIONS -------- 1. Sinus rhythm. 2. This was a technically difficult study with suboptimal views. 3. The left ventricular size is normal. 4. There is moderate concentric left ventricular hypertrophy. 5. Overall left ventricular systolic function is low-normal with, an EF between 50 - 55 %. 6. The RV was not well visualized. 7. The left atrium was not well visualized. 8. The right atrium was not well visualized. 9. xx ml of Lumason was utilized for enhancement of images. 10. The aortic valve was not well visualized. 11. The mitral valve was not well visualized. 12. The tricuspid valve was not well visualized. 13. The pulmonic valve was not well visualized. 14. The aortic root is dilated measuring 3.8 CM PEST CONTROL WORKER HELPER: Marietta Burton [facility]
[2018-10-22] MEDS ORDERED: ATORVASTATIN 40 MG TAB PO SCH (21:00)
[2018-10-23] MEDS: IPRATROPIUM-ALBUTEROL 3 ML NEB INHALATION PRN ×2 (00:07→12:11)
[2018-10-23] MEDS: MORPHINE SULFATE 4 MG/ML SYRINGE IV PRN ×3 (00:07→08:20)
[2018-10-23 02:36] LABS: ALT 28 U/L (21-72); AST 20 U/L (17-59); Albumin 3.7 g/dL (3.5-5.0); Alkaline Phosphatase 69 U/L (38-126); Anion Gap 4 mmol/L; Blood Urea Nitrogen 22 mg/dL (9-20); Calcium 9.4 mg/dL (8.4-10.2); Carbon Dioxide 32 mmol/L (22-30); Chloride 102 mmol/L (98-107); Glucose 109 mg/dL (74-99); Magnesium 1.9 mg/dL (1.6-2.3); Potassium 4.6 mmol/L (3.5-5.1); Sodium 138 mmol/L (137-145); Total Bilirubin 0.3 mg/dL (0.2-1.3); Total Protein 6.4 g/dL (6.3-8.2)
[2018-10-23 04:53] VITALS: RESP 16
[2018-10-23] MEDS: oxyCODONE-APAP 7.5-325MG 1 EACH TAB PO PRN ×2 (06:33→12:31)
[2018-10-23 06:59] LABS: Platelet Count 190 k/uL (150-450)
[2018-10-23] MEDS: CLOPIDOGREL 75 MG TAB PO SCH (08:08)
[2018-10-23] MEDS: FUROSEMIDE 40 MG TAB PO SCH (08:08)
[2018-10-23] MEDS: LOSARTAN 50 MG TAB PO SCH (08:08)
[2018-10-23] MEDS: ASPIRIN 325 MG TAB PO SCH (08:08)
[2018-10-23] MEDS: METOPROLOL TARTRATE 25 MG TAB PO SCH (08:08)
[2018-10-23] MEDS: ISOSORBIDE MONONITRATE ER 60 MG TAB.ER.24H PO SCH (08:09)
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
[2018-10-23 12:43] VITALS: BP 109/65; PULSE 59; TEMP 97.7
--- NOTE | 2018-10-23 13:02 | P.DS ---
Providers Date of admission: 10/21/18 23:43 Expected date of discharge: 10/23/18 Attending physician: Sabina Aguilar MD Consults: 10/21/18 22:55 Consult Physician Urgent Consulting Provider: Stanislaw Gibson Consult Reason/Comments: chest pain Do you want consulting provider notified?: Yes, Notify in am 10/22/18 00:23 Consult Physician Routine Consulting Provider: Charlotte Brady Consult Reason/Comments: low back pain with radiculopathy Do you want consulting provider notified?: Yes, Notify in am Primary care physician: Yohan Anna MD - Discharge Diagnosis(es) (1) Atypical chest pain Current Visit: Yes Status: Acute (2) Coronary artery disease Current Visit: Yes Status: Acute (3) Diastolic CHF Current Visit: No Status: Acute (4) Hypertension Current Visit: No Status: Chronic (5) Lumbar degenerative disc disease Current Visit: Yes Status: Acute Hospital Course: The patient is a 63-year-old male that was admitted for atypical chest pain with team to rule out ACS, his cardiac markers troponins are negative 2, his EKG initially showed some dynamic changes with T wave inversion in lateral leads And repeat showed normal sinus rhythm with nonspecific changes, the patient was able to get up and ambulate without any chest pain. the patient was seen by cardiology echocardiogram was ordered showed preserved LV EF of 50-55%. Patient was seen by orthopedic service for acute on chronic lumbosacral pain after having a lumbar x-ray that was consistent with degenerative disc disease and facet arthropathy. Orthopedic surgery recommended Continue medical management with Percocet 7.5/325 every 6 hours which the patient was taking previously. The patient was subsequently cleared by all consultants and discharged home, the patient is scheduled to follow-up in Dr. Kapoor's clinic in 4 weeks to coordinate and evaluate need for stress testing. This discharge process took approximately 30 minutes. Focused exam: Cardiovascular: Regular rate and rhythm, No murmurs rubs or gallops Patient Condition at Discharge: Good Plan - Discharge Summary Discharge Rx Participant: No New Discharge Prescriptions: Continue Clopidogrel [Plavix] 75 mg PO DAILY #30 tab Isosorbide Mononitrate ER [Imdur] 60 mg PO DAILY Losartan [Cozaar] 50 mg PO DAILY #30 tab Furosemide [Lasix] 40 mg PO DAILY Atorvastatin [Lipitor] 40 mg PO HS Docusate [Colace] 100 mg PO BID PRN cap PRN Reason: Constipation Ipratropium-Albuterol Nebulize [Duoneb 0.5 mg-3 mg/3 ml Soln] 3 ml INHALATION RT-TID PRN PRN Reason: Shortness Of Breath Cyanocobalamin (Vitamin B-12) [Vitamin B-12] 1,000 mcg PO DAILY oxyCODONE-APAP 7.5-325MG [Percocet 7.5-325 mg] 1 tab PO QID PRN PRN Reason: Pain Aspirin 81 mg PO DAILY #1 chewable Metoprolol Tartrate [Lopressor] 25 mg PO BID Discharge Medication List Clopidogrel [Plavix] 75 mg PO DAILY #30 tab 02/05/16 [Rx] Isosorbide Mononitrate ER [Imdur] 60 mg PO DAILY 04/25/17 [History] Losartan [Cozaar] 50 mg PO DAILY #30 tab 04/27/17 [Rx] Atorvastatin [Lipitor] 40 mg PO HS 02/10/18 [History] Furosemide [Lasix] 40 mg PO DAILY 02/10/18 [History] Docusate [Colace] 100 mg PO BID PRN cap 02/21/18 [Rx] Cyanocobalamin (Vitamin B-12) [Vitamin B-12] 1,000 mcg PO DAILY 04/16/18 [History] Ipratropium-Albuterol Nebulize [Duoneb 0.5 mg-3 mg/3 ml Soln] 3 ml INHALATION RT-TID PRN 04/16/18 [History] oxyCODONE-APAP 7.5-325MG [Percocet 7.5-325 mg] 1 tab PO QID PRN 04/16/18 [History] Aspirin 81 mg PO DAILY #1 chewable 04/18/18 [Rx] Metoprolol Tartrate [Lopressor] 25 mg PO BID 10/21/18 [History] Follow up Appointment(s)/Referral(s): Yohan Anna MD [Primary Care Provider] - 1-2 days Dada Valenzuela PAC [PHYSICIAN REGISTERED PRIVATE DUTY NURSE] - As Needed (Patient may follow-up with Dada Valenzuela PA-C or Dr. Nura Brady at [facility] on an as-needed basis following discharge. )
== END 2018-10-23 14:19 | disposition home or self-care (01) ==
LOC: EC 21:36 → 3SCARD 23:43
PROVIDERS: ADMIT Internal Medicine; ATTEND Internal Medicine
DX: R07.89 Other chest pain (principal); I25.10 Atherosclerotic heart disease of native coronary artery without angina pectoris; I11.0 Hypertensive heart disease with heart failure; I50.30 Unspecified diastolic (congestive) heart failure; M51.36 Other intervertebral disc degeneration, lumbar region; R94.31 Abnormal electrocardiogram [ECG] [EKG]; G89.29 Other chronic pain; M54.5 Low back pain; J44.1 Chronic obstructive pulmonary disease with (acute) exacerbation; R11.0 Nausea; M53.3 Sacrococcygeal disorders, not elsewhere classified; E78.5 Hyperlipidemia, unspecified; I25.2 Old myocardial infarction; M19.90 Unspecified osteoarthritis, unspecified site; M48.00 Spinal stenosis, site unspecified; F17.210 Nicotine dependence, cigarettes, uncomplicated; M51.16 Intervertebral disc disorders with radiculopathy, lumbar region; M51.06 Intervertebral disc disorders with myelopathy, lumbar region; M51.17 Intervertebral disc disorders with radiculopathy, lumbosacral region; M47.9 Spondylosis, unspecified; M51.37 Other intervertebral disc degeneration, lumbosacral region; M48.07 Spinal stenosis, lumbosacral region; M46.96 Unspecified inflammatory spondylopathy, lumbar region; M25.78 Osteophyte, vertebrae; Z86.73 Personal history of transient ischemic attack (TIA), and cerebral infarction without residual deficits; Z86.19 Personal history of other infectious and parasitic diseases; Z95.810 Presence of automatic (implantable) cardiac defibrillator; Z95.5 Presence of coronary angioplasty implant and graft; Z79.899 Other long term (current) drug therapy; Z79.891 Long term (current) use of opiate analgesic; Z79.02 Long term (current) use of antithrombotics/antiplatelets; Z79.82 Long term (current) use of aspirin; M48.56XA Collapsed vertebra, not elsewhere classified, lumbar region, initial encounter for fracture; S32.029A Unspecified fracture of second lumbar vertebra, initial encounter for closed fracture; S32.039A Unspecified fracture of third lumbar vertebra, initial encounter for closed fracture; S32.049A Unspecified fracture of fourth lumbar vertebra, initial encounter for closed fracture; S32.059A Unspecified fracture of fifth lumbar vertebra, initial encounter for closed fracture; E66.2 Morbid (severe) obesity with alveolar hypoventilation; Z68.42 Body mass index [BMI] 45.0-49.9, adult; Z99.89 Dependence on other enabling machines and devices; Y04.2XXA Assault by strike against or bumped into by another person, initial encounter; Y04.0XXA Assault by unarmed brawl or fight, initial encounter; Y92.009 Unspecified place in unspecified non-institutional (private) residence as the place of occurrence of the external cause; Z82.0 Family history of epilepsy and other diseases of the nervous system
CPT/HCPCS: 96376 ×3; 96366 ×2; 96365; 96375; 99285; 36415; 94640 ×5; 93005; 83880; 80061; 80053 ×2; 83735 ×2; 84484 ×2; 85025; 85049 ×2; 85610; 85730 ×2; 72100; 71046; G0378 ×3; C8929; J2270 ×3; J1644 ×2; J3360; J2405; Q9950; 93306

== ENCOUNTER 2018-12-02 22:51 | Observation (INO) | payer MEDICARE ==
[2018-12-02] MEDS ORDERED: ALBUTEROL NEBULIZED 2.5 MG/3 ML INHALATION STA (23:13)
[2018-12-02] MEDS ORDERED: MORPHINE SULFATE 4 MG/ML SYRINGE IV STA (23:13)
[2018-12-02] MEDS ORDERED: ONDANSETRON 4 MG/2 ML VIAL IVP STA (23:13)
[2018-12-02] MEDS ORDERED: IPRATROPIUM 0.5 MG/2.5 ML NEBU INHALATION STA (23:14)
[2018-12-02 23:51] LABS: Basophils % (A) 0 %; Eosinophils # (A) 0.2 k/uL (0-0.7); Eosinophils % (A) 2 %; HCT 49.4 % (39.0-53.0); HGB 15.9 gm/dL (13.0-17.5); Lymphocytes # (A) 1.9 k/uL (1.0-4.8); Lymphocytes % (A) 14 %; MCH 29.2 pg (25.0-35.0); MCHC 32.2 g/dL (31.0-37.0); MCV 90.6 fL (80.0-100.0); Mean Platelet Volume 7.4; Monocytes # (A) 0.7 k/uL (0-1.0); Monocytes % (A) 5 %; Neutrophils # (A) 10.6 k/uL (1.3-7.7); Neutrophils % (A) 78 %; Platelet Count 177 k/uL (150-450); RBC 5.45 m/uL (4.30-5.90); RDW 13.8 % (11.5-15.5); WBC 13.6 k/uL (3.8-10.6)
[2018-12-03] LABS: ALT 22 U/L (21-72); AST 18 U/L (17-59); African American GFR (CKD) >90 (>60 ml/min/1.73 sqM); Albumin 3.7 g/dL (3.5-5.0); Alkaline Phosphatase 77 U/L (38-126); Anion Gap 6 mmol/L; Blood Urea Nitrogen 16 mg/dL (9-20); Calcium 9.1 mg/dL (8.4-10.2); Carbon Dioxide 33 mmol/L (22-30); Chloride 101 mmol/L (98-107); Glucose 102 mg/dL (74-99); Magnesium 1.8 mg/dL (1.6-2.3); Potassium 4.3 mmol/L (3.5-5.1); Sodium 140 mmol/L (137-145); Total Bilirubin 0.3 mg/dL (0.2-1.3); Total Protein 6.4 g/dL (6.3-8.2)
[2018-12-03 00:16] LABS: INR 0.9 (<1.2); Partial Thromboplastin Time 25.4 sec (22.0-30.0); Prothrombin Time 9.7 sec (9.0-12.0)
[2018-12-03] MEDS ORDERED: MORPHINE SULFATE 4 MG/ML SYRINGE IVP STA (02:05)
[2018-12-03] MEDS ORDERED: methylPREDNISolone SOD SUCCI 125 MG/2 ML VIAL IV STA (02:41)
[2018-12-03] MEDS ORDERED: IPRATROPIUM-ALBUTEROL 3 ML NEB INHALATION PRN (02:57)
--- NOTE | 2018-12-03 02:57 | ED ---
General Adult HPI - General Source: patient Mode of arrival: wheelchair Limitations: no limitations, physical limitation <Rachel Maldonado - Last Filed: 12/03/18 02:48> <Aparna Tate - Last Filed: 12/03/18 03:57> - General Chief complaint: Chest Pain Stated complaint: Chest Pain/SOB Time Seen by Provider: 12/02/18 23:07 - History of Present Illness Initial comments: 63-year-old male patient with past medical history significant for CHF, COPD, RI, CAD, Hyperlipidemia, and sleep apnea presents to the emergency department today for evaluation of shortness of breath and chest pain. Patient states he is having a sharp pain to the left side of his chest radiates down his body. Patient states that he has been having shortness breath for the last couple of days. Patient states today he started coughing up green sputum. States that he has been doing breathing treatments at home and they are not helping. Denies any fevers or chills with this. Denies any hemoptysis. Patient states that he is having increasing swelling to the lower extremities. Patient does admit to being non-compliant with his lasix due to frequency of urination. Patient states his breathing gets worse with activity and lying down. He denies any fever or chills. Denies any nasal congestion or sore throat. States he has intermittent nausea but no vomiting. Denies sweats. Patient denies any recent rash, abdominal pain, nausea, vomiting, diarrhea, constipation, back pain, numbness, tingling, dizziness, weakness, hematuria, dysuria, urinary urgency, urinary frequency, headache, visual changes, or any other complaints. (Rachel Maldonado) - Related Data Home Medications Medication Instructions Recorded Confirmed Isosorbide Mononitrate ER [Imdur] 60 mg PO DAILY 04/25/17 10/21/18 Atorvastatin [Lipitor] 40 mg PO HS 02/10/18 10/21/18 Furosemide [Lasix] 40 mg PO DAILY 02/10/18 10/21/18 Cyanocobalamin (Vitamin B-12) 1,000 mcg PO DAILY 04/16/18 10/21/18 [Vitamin B-12] Ipratropium-Albuterol Nebulize 3 ml INHALATION RT-TID PRN 11/18/18 05/25/19 [Duoneb 0.5 mg-3 mg/3 ml Soln] oxyCODONE-APAP 7.5-325MG [Percocet 1 tab PO QID PRN 04/16/18 10/21/18 7.5-325 mg] Metoprolol Tartrate [Lopressor] 50 mg PO DAILY 10/21/18 10/21/18 Aspirin 325 mg PO DAILY 12/03/18 Previous Rx's Medication Instructions Recorded Clopidogrel [Plavix] 75 mg PO DAILY #30 tab 02/05/16 Losartan [Cozaar] 50 mg PO DAILY #30 tab 04/27/17 Docusate [Colace] 100 mg PO BID PRN cap 02/21/18 Allergies Allergy/AdvReac Type Severity Reaction Status Date / Time No Known Allergies Allergy Verified 10/21/18 22:16 Review of Systems ROS Other: All systems not noted in ROS Statement are negative. <Rachel Maldonado - Last Filed: 12/03/18 02:48> ROS Other: All systems not noted in ROS Statement are negative. <Aparna Tate - Last Filed: 12/03/18 03:57> ROS Statement: Those systems with pertinent positive or pertinent negative responses have been documented in the HPI. Past Medical History Past Medical History: Coronary Artery Disease (CAD), Chest Pain / Angina, COPD, CVA/TIA, Hyperlipidemia, Hypertension, Myocardial Infarction (RI), Osteoarthritis (OA), Respiratory Disorder, Sleep Apnea/CPAP/BIPAP Additional Past Medical History / Comment(s): COPD, obesity, obesity hypoventilation syndrome, obstructive sleep apnea, suspected CHF and cor pulmonale, coronary artery disease with previous stenting of the LAD, previous history of AICD placement, osteoarthritis, CVA in 2004, chronic back pain secondary to degenerative disc disease and spinal canal stenosis, history of vertebral fracture L2 through L5, chronic lower extremity edema, diverticular disease, hyperlipidemia, hypertension, previous history of myocardial infarction,, L knee fx in past and torn R rotator cuff. cellulitis. Last Myocardial Infarction Date:: 2011 History of Any Multi-Drug Resistant Organisms: None Reported Past Surgical History: AICD, Heart Catheterization With Stent, Hernia Repair Additional Past Surgical History / Comment(s): PTCA with stent (4 total), 04/05/13 AICD [employer], umbilical hernia repair, colonoscopy, circumcism, R eye surgery for strabismus. Past Anesthesia/Blood Transfusion Reactions: No Reported Reaction Date of Last Stent Placement:: 2012 Type of Cardiac Device: AICD Device Placement Date:: 04/05/13 Past Psychological History: No Psychological Hx Reported Smoking Status: Current some day smoker Past Alcohol Use History: None Reported Past Drug Use History: None Reported - Past Family History Father Family Medical History: Musculoskeletal Disorder, Neurologic Disorder Additional Family Medical History / Comment(s): Father had parkinson's dx and at age 84 yrs. Mother Family Medical History: Myocardial Infarction (RI) Additional Family Medical History / Comment(s): Mother had 3 vessel CABG. She of a massive RI at the age of 53 yrs. <Rachel Maldonado - Last Filed: 12/03/18 02:48> General Exam Limitations: no limitations, physical limitation General appearance: alert, in no apparent distress, other (Physical well-develop ed, well-nourished adult male patient in mild respiratory distress. Vital signs upon presentation are temperature 99.2F, pulse 123, respirations 25, blood pressure 104/57, pulse ox 92% on room air.) ENT exam: Present: normal exam, normal oropharynx, mucous membranes moist Respiratory exam: Present: wheezes (Expiratory wheezing noted in the posterior lung higgins), accessory muscle use (Abdominal), other (Pursed lip breathing). Absent: normal lung sounds bilaterally, respiratory distress, rales, rhonchi, stridor Cardiovascular Exam: Present: normal rhythm, tachycardia, normal heart sounds. Absent: systolic murmur, diastolic murmur, rubs, gallop, clicks GI/Abdominal exam: Present: soft, normal bowel sounds. Absent: distended, tenderness, guarding, rebound, rigid Neurological exam: Present: alert, oriented X3, CN II-XII intact Psychiatric exam: Present: normal affect, normal mood Skin exam: Present: warm, dry, intact, normal color. Absent: rash <Rachel Maldonado - Last Filed: 12/03/18 02:48> Course Vital Signs 12/02/18 12/02/18 12/02/18 22:53 23:31 23:40 Temperature 99.2 F Pulse Rate 123 H 80 118 H Respiratory 25 H Rate Blood Pressure 104/57 O2 Sat by Pulse 92 L Oximetry 12/02/18 12/02/18 12/03/18 23:43 23:56 01:49 Temperature 98 F Pulse Rate 79 84 Respiratory 79 H 18 Rate Blood Pressure 167/86 O2 Sat by Pulse 2 L Oximetry 12/03/18 03:02 Temperature Pulse Rate 77 Respiratory 18 Rate Blood Pressure 167/86 O2 Sat by Pulse 93 L Oximetry EKG Findings - EKG Comments: EKG Findings:: EKG obtained at 2320 shows normal sinus rhythm with a ventricular rate of 78, MO interval 160, QRS duration 104, QT 368, QTC 419. No evidence of ST elevation or depression. <Rachel Maldonado - Last Filed: 12/03/18 02:48> Medical Decision Making - Lab Data Result diagrams: 12/02/18 23:36 12/02/18 23:36 - Radiology Data Radiology results: report reviewed, image reviewed <Rachel Maldonado - Last Filed: 12/03/18 02:48> - Lab Data Result diagrams: 12/02/18 23:36 12/02/18 23:36 <Aparna Tate - Last Filed: 12/03/18 03:57> - Medical Decision Making 63-year-old male patient presented to the emergency department today for evaluation of increasing shortness of breath over the last 3 days. He does have green sputum production with cough. Physical examination did reveal expiratory wheezing in the posterior lung higgins, pursed lip breathing, tachypnea, and abdominal accessory muscle use. Labs reviewed and were unremarkable. Troponin negative. D-dimer negative. BNP normal. EKG shows no ST elevation or de pression. Chest x-ray shows no acute findings. Patient is given continuous breathing treatment and IV steroids. Upon reevaluation patient is still reporting shortness of breath and appears to be labored. We will given additional breathing treatment. We'll admit to the hospital for COPD exacerba tion. We'll continue breathing treatments and IV steroids. Dr. Aguilar is accepting. (Rachel Maldonado) I was available for consultation in the emergency department. The history and physical exam were done by the midlevel provider. I was consulted for this patient's care. I reviewed the case with the midlevel provider and based on their presentation of the patient, I agree with the assessment, medical decision making and plan of care as documented. Chart was dictated using [employer] dictation software. Attempts were made to correct any dictation errors however some typographical errors may persist. (Aparna Tate) - Lab Data Lab Results 12/02/18 12/02/18 12/02/18 Range/Units 23:36 23:36 23:36 WBC 13.6 H (3.8-10.6) k/uL RBC 5.45 (4.30-5.90) m/uL Hgb 15.9 (13.0-17.5) gm/dL Hct 49.4 (39.0-53.0) % MCV 90.6 (80.0-100.0) fL MCH 29.2 (25.0-35.0) pg MCHC 32.2 (31.0-37.0) g/dL RDW 13.8 (11.5-15.5) % Plt Count 177 (150-450) k/uL Neutrophils % 78 % Lymphocytes % 14 % Monocytes % 5 % Eosinophils % 2 % Basophils % 0 % Neutrophils # 10.6 H (1.3-7.7) k/uL Lymphocytes # 1.9 (1.0-4.8) k/uL Monocytes # 0.7 (0-1.0) k/uL Eosinophils # 0.2 (0-0.7) k/uL Basophils # 0.0 (0-0.2) k/uL PT (9.0-12.0) sec INR (<1.2) APTT (22.0-30.0) sec D-Dimer (<0.60) mg/L FEU Sodium 140 (137-145) mmol/L Potassium 4.3 (3.5-5.1) mmol/L Chloride 101 (98-107) mmol/L Carbon Dioxide 33 H (22-30) mmol/L Anion Gap 6 mmol/L BUN 16 (9-20) mg/dL Creatinine 0.92 (0.66-1.25) mg/dL Est GFR (CKD-EPI)AfAm >90 (>60 ml/min/1.73 sqM) Est GFR (CKD-EPI)NonAf 89 (>60 ml/min/1.73 sqM) Glucose 102 H (74-99) mg/dL Calcium 9.1 (8.4-10.2) mg/dL Magnesium 1.8 (1.6-2.3) mg/dL Total Bilirubin 0.3 (0.2-1.3) mg/dL AST 18 (17-59) U/L ALT 22 (21-72) U/L Alkaline Phosphatase 77 (38-126) U/L Troponin I (0.000-0.034) ng/mL NT-Pro-B Natriuret Pep 127 pg/mL Total Protein 6.4 (6.3-8.2) g/dL Albumin 3.7 (3.5-5.0) g/dL 12/02/18 12/02/18 12/02/18 Range/Units 23:36 23:36 23:36 WBC (3.8-10.6) k/uL RBC (4.30-5.90) m/uL Hgb (13.0-17.5) gm/dL Hct (39.0-53.0) % MCV (80.0-100.0) fL MCH (25.0-35.0) pg MCHC (31.0-37.0) g/dL RDW (11.5-15.5) % Plt Count (150-450) k/uL Neutrophils % % Lymphocytes % % Monocytes % % Eosinophils % % Basophils % % Neutrophils # (1.3-7.7) k/uL Lymphocytes # (1.0-4.8) k/uL Monocytes # (0-1.0) k/uL Eosinophils # (0-0.7) k/uL Basophils # (0-0.2) k/uL PT 9.7 (9.0-12.0) sec INR 0.9 (<1.2) APTT 25.4 (22.0-30.0) sec D-Dimer 0.33 (<0.60) mg/L FEU Sodium (137-145) mmol/L Potassium (3.5-5.1) mmol/L Chloride (98-107) mmol/L Carbon Dioxide (22-30) mmol/L Anion Gap mmol/L BUN (9-20) mg/dL Creatinine (0.66-1.25) mg/dL Est GFR (CKD-EPI)AfAm (>60 ml/min/1.73 sqM) Est GFR (CKD-EPI)NonAf (>60 ml/min/1.73 sqM) Glucose (74-99) mg/dL Calcium (8.4-10.2) mg/dL Magnesium (1.6-2.3) mg/dL Total Bilirubin (0.2-1.3) mg/dL AST (17-59) U/L ALT (21-72) U/L Alkaline Phosphatase (38-126) U/L Troponin I <0.012 (0.000-0.034) ng/mL NT-Pro-B Natriuret Pep pg/mL Total Protein (6.3-8.2) g/dL Albumin (3.5-5.0) g/dL - Radiology Data Two-view x-ray of the chest is obtained. Report is reviewed in its entirety. Impression by Dr. Orellana shows no acute findings. (Rachel Maldonado) Disposition Decision to Admit Reason: Admit from EC Decision Date: 12/03/18 Decision Time: 02:56 <Rachel Maldonado - Last Filed: 12/03/18 02:48> <Aparna Tate - Last Filed: 12/03/18 03:57> Clinical Impression: COPD exacerbation Disposition: ADMITTED IP TO THIS [facility] Condition: Serious
[2018-12-03] MEDS: methylPREDNISolone SOD SUCCI 125 MG/2 ML VIAL IV SCH ×4 (05:40→23:43)
[2018-12-03] MEDS: MORPHINE SULFATE 4 MG/ML SYRINGE IVP PRN ×5 (05:53→22:39)
[2018-12-03] MEDS ORDERED: DOCUSATE 100 MG CAP PO PRN (06:36)
--- NOTE | 2018-12-03 06:36 | P.HPIM ---
History of Present Illness H&P Date: 12/03/18 Chief Complaint: Shortness of breath 61-year-old male with history of coronary artery disease status post stents and AICD, diastolic CHF Patient presented to the hospital with 2 day history of worsening shortness of breath mostly exertional, patient also reports some orthopnea and increased swelling in bilateral legs he admits to being noncompliant with his Lasix. Patient was trying breathing treatments however he still having productive cough of greenish sputum with some chills at home but denies any fevers. He's been using his breathing treatments with no much benefit so decided come the hospital. Patient also reports some chest pain left-sided that can happen at rest sometimes Patient otherwise denies any changes in his bowel or urinary habits denies any abdominal pain denies any nausea vomiting denies any focal neurologic deficits denies any GI bleeding in the ED , he did not respond well to breathing treatment , CXR showed no acute process , and labs unremarkable, admitted for further treatment of [employer] D Review of Systems Pertinent positives as noted in HPI. All other systems were reviewed and are negative Past Medical History Past Medical History: Coronary Artery Disease (CAD), Chest Pain / Angina, COPD, CVA/TIA, Hyperlipidemia, Hypertension, Myocardial Infarction (AR), Os teoarthritis (OA), Respiratory Disorder, Sleep Apnea/CPAP/BIPAP Additional Past Medical History / Comment(s): COPD, obesity, obesity hypoventilation syndrome, obstructive sleep apnea, suspected CHF and cor pulmonale, coronary artery disease with previous stenting of the LAD, previous history of AICD placement, osteoarthritis, CVA in 2004, chronic back pain secondary to degenerative disc disease and spinal canal stenosis, history of vertebral fracture L2 through L5, chronic lower extremity edema, diverticular disease, hyperlipidemia, hypertension, previous history of myocardial infarction,, L knee fx in past and torn R rotator cuff. cellulitis. Last Myocardial Infarction Date:: 2011 History of Any Multi-Drug Resistant Organisms: None Reported Past Surgical History: AICD, Heart Catheterization With Stent, Hernia Repair Additional Past Surgical History / Comment(s): PTCA with stent (4 total), 04/05/13 AICD [employer] 1989' umbilical hernia repair, colonoscopy, circumcism, R eye surgery for strabismus. Past Anesthesia/Blood Transfusion Reactions: No Reported Reaction Date of Last Stent Placement:: 2012 Type of Cardiac Device: AICD Device Placement Date:: 04/05/13 Past Psychological History: No Psychological Hx Reported Additional Psychological History / Comment(s): Pt is living in a home with roomates. He can drive. He states he uses a cane or walker at home. Smoking Status: Current some day smoker Past Alcohol Use History: None Reported Additional Past Alcohol Use History / Comment(s): Pt states he started smoking around 1970 and smokes just a couple cigarettes a day Past Drug Use History: None Reported - Past Family History Father Family Medical History: Musculoskeletal Disorder, Neurologic Disorder Additional Family Medical History / Comment(s): Father had parkinson's dx and at age 84 yrs. Mother Family Medical History: Myocardial Infarction (AR) Additional Family Medical History / Comment(s): Mother had 3 vessel CABG. She of a massive AR at the age of 53 yrs. Medications and Allergies Home Medications Medication Instructions Recorded Confirmed Type Clopidogrel [Plavix] 75 mg PO DAILY #30 tab 02/05/16 10/21/18 Rx Isosorbide Mononitrate ER [Imdur] 60 mg PO DAILY 04/25/17 10/21/18 History Losartan [Cozaar] 50 mg PO DAILY #30 tab 04/27/17 10/21/18 Rx Atorvastatin [Lipitor] 40 mg PO HS 02/10/18 10/21/18 History Furosemide [Lasix] 40 mg PO DAILY 02/10/18 10/21/18 History Docusate [Colace] 100 mg PO BID PRN cap 02/21/18 10/21/18 Rx Cyanocobalamin (Vitamin B-12) 1,000 mcg PO DAILY 04/16/18 10/21/18 History [Vitamin B-12] Ipratropium-Albuterol Nebulize 3 ml INHALATION RT-TID PRN 04/16/18 10/21/18 History [Duoneb 0.5 mg-3 mg/3 ml Soln] oxyCODONE-APAP 7.5-325MG [Percocet 1 tab PO QID PRN 04/16/18 10/21/18 History 7.5-325 mg] Metoprolol Tartrate [Lopressor] 50 mg PO DAILY 10/21/18 10/21/18 History Aspirin 325 mg PO DAILY 12/03/18 History Allergies Allergy/AdvReac Type Severity Reaction Status Date / Time No Known Allergies Allergy Verified 10/21/18 22:16 Physical Exam Vitals: Vital Signs Temp Pulse Pulse Resp BP BP Pulse Ox 12/03/18 03:47 99.0 F 70 22 102/64 93 L 12/03/18 03:02 77 18 167/86 93 L 12/03/18 01:49 98 F 84 18 167/86 2 L 12/02/18 23:56 79 12/02/18 23:43 79 H 12/02/18 23:40 118 H 12/02/18 23:31 80 12/02/18 22:53 99.2 F 123 H 25 H 104/57 92 L Intake and Output 12/02/18 12/02/18 12/03/18 14:59 22:59 06:59 Output Total 350 Balance -350 Output: Urine 350 Other: Voiding Method Toilet Urinal # Voids 1 Weight 167.829 kg Constitutional: No acute distress, conversant, pleasant, morbidly obese Eyes: Anicteric sclerae, moist conjunctiva, no lid-lag Pupils equal round reactive to light ENMT: NC/AT Oropharynx clear, no erythema, exudates Neck: Supple, FROM, no masses, or JVD No carotid bruits No thyromegaly Lungs: Prolonged expiratory phase with scattered wheezing Clear to percussion Normal respiratory effort, no accessory muscle use Cardiovascular: Heart regular in rate and rhythm, No murmurs, gallops, or rubs +2 peripheral edema bilaterally Abdominal: Soft, obese limiting exam Nontender, no guarding, rebound or rigidity Abdomen moving with respiration Normoactive bowel sounds No appreciated organomegaly Skin: Normal temperature, tone, texture, turgor No induration No subcutaneous nodules No rash, lesions No ulcers Extremities: No digital cyanosis No clubbing Pedal pulses intact and symmetrical Radial pulses intact and symmetrical No calf tenderness Psychiatric: Alert and oriented to person, place and time Appropriate affect fair judgment Neuro Muscles Strength 4/5 in all 4 extremities Sensation to light touch grossly present throughout Cranial nerves II-XII grossly intact No focal sensory deficits Lymphatics: no palpable cervical or supraclavicular , or inguinal lymph nodes Results CBC & Chem 7: 12/02/18 23:36 12/02/18 23:36 Labs: Abnormal Lab Results - Last 24 Hours (Table) 12/02/18 12/02/18 Range/Units 23:36 23:36 WBC 13.6 H (3.8-10.6) k/uL Neutrophils # 10.6 H (1.3-7.7) k/uL Carbon Dioxide 33 H (22-30) mmol/L Glucose 102 H (74-99) mg/dL Thrombosis Risk Factor Assmnt - Choose All That Apply Any of the Below Risk Factors Present?: Yes Each Factor Represents 1 point: Abnormal pulmonary function (COPD) Other Risk Factors: Yes Each Risk Factor Represents 2 Points: Age 61-74 years Other congenital or acquired thrombophilia - If yes, enter type in comment: No Thrombosis Risk Factor Assessment Total Risk Factor Score: 3 Thrombosis Risk Factor Assessment Level: Moderate Risk Assessment and Plan Assessment: 63-year-old male with history of diastolic CHF and COPD admitted as inpatient with anticipated length of stay more than 48 hours for acute COPD exacerbation Plan: Acute COPD exacerbation COPD pathway with systemic IV steroids Breathing treatments Chest x-ray no acute process Doxycycline twice a day Assessment for home oxygen requirement upon discharge Chronic conditions Diastolic dysfunction, noncompliant with Lasix, continue with by mouth diuresis while inpatient for bilateral leg edema, most recent LVEF of 50-55% History of CAD History of NARCISO Hypertension Continue home medications Due to prophylaxis heparin subcu 3 times a day Preformed a thorough record review from recent hospitalization *for atypical chest pain and back pain CODE STATUS: Full code Discussed with: Patient, ER Anticipated discharge: 48-[address]: home A total of 60 minutes was spent on the care of this complex patient more than 50% of the time was spent in counseling and care coordination.
[2018-12-03 07:07] LABS: Glucose,Whole Blood 140 mg/dL (75-99)
[2018-12-03] MEDS: IPRATROPIUM-ALBUTEROL 3 ML NEB INHALATION SCH ×4 (07:45→19:41)
[2018-12-03] MEDS: DOXYCYCLINE 100 MG CAP PO SCH ×2 (08:34→21:33)
[2018-12-03] MEDS: METOPROLOL TARTRATE 50 MG TAB PO SCH (08:34)
[2018-12-03] MEDS: FUROSEMIDE 40 MG TAB PO SCH ×2 (08:34→16:05)
[2018-12-03] MEDS: CLOPIDOGREL 75 MG TAB PO SCH (08:34)
[2018-12-03] MEDS: ISOSORBIDE MONONITRATE ER 60 MG TAB.ER.24H PO SCH (08:34)
[2018-12-03] MEDS: ASPIRIN 325 MG TAB PO SCH (08:34)
[2018-12-03] MEDS: LOSARTAN 50 MG TAB PO SCH (08:35)
[2018-12-03] MEDS: HEPARIN SODIUM,PORCINE 5,000 UNIT/ML 1 ML VIAL SQ SCH ×3 (08:35→23:43)
--- NOTE | 2018-12-03 10:15 | P.PN ---
Progress Note - Text Progress Note Date: 12/03/18 Hospitalist Interval Note: Patient seen and examined at bedside. He refuses to talk to me that he was tired. He nods his head yes to being short of breath, nondistended noted chest pain, nonspecific no evidence abdominal pain, nonspecific yes to that his lower extremity edema is chronic. He also states he wears a CPAP. Vital signs reviewed General: non toxic, no distress, appears older than stated age, Obese Derm: warm, dry Head: atraumatic, normocephalic, symmetric Eyes: EOMI, no lid lag, anicteric sclera Mouth: no lip lesion, mucus membranes moist Cardiovascular: S1S2 reg, no murmur, positive posterior tibial pulse bilateral, Lungs: CTA bilateral, no rhonchi, no rales , no accessory muscle use Ext: no gross muscle atrophy, 2+ edema, no contractures Assessment/Plan: 1. AE COPD- Steroids, BD, doxycycline, add siding scale 2. Morbid obesity- structured outpatient weight loss 3. LE edema- lasix PO This is an update note for patient , for full note on 12/03 see H and P. There is no charge associated with this note.
[2018-12-03 11:34] LABS: Glucose,Whole Blood 195 mg/dL (75-99)
[2018-12-03] MEDS: INSULIN ASPART (NovoLOG) 100 UNIT/ML VIAL SQ SCH ×3 (12:08→21:33)
[2018-12-03 16:31] LABS: Glucose,Whole Blood 149 mg/dL (75-99)
[2018-12-03] MEDS: oxyCODONE-APAP 7.5-325MG 1 EACH TAB PO PRN ×2 (18:16→23:47)
[2018-12-03 20:27] LABS: Glucose,Whole Blood 263 mg/dL (75-99)
[2018-12-03] MEDS ORDERED: ATORVASTATIN 40 MG TAB PO SCH (21:00)
[2018-12-03] MEDS ORDERED: INSULIN ASPART (NovoLOG) 100 UNIT/ML VIAL SQ ONE (21:10)
[2018-12-04] MEDS: MORPHINE SULFATE 4 MG/ML SYRINGE IVP PRN ×2 (03:49→09:11)
[2018-12-04] MEDS: methylPREDNISolone SOD SUCCI 125 MG/2 ML VIAL IV SCH ×2 (05:50→12:41)
[2018-12-04] MEDS: oxyCODONE-APAP 7.5-325MG 1 EACH TAB PO PRN ×2 (05:50→12:41)
[2018-12-04 07:10] LABS: Glucose,Whole Blood 151 mg/dL (75-99)
[2018-12-04 07:34] VITALS: BP 156/92; RESP 15; TEMP 98.2
[2018-12-04] MEDS: IPRATROPIUM-ALBUTEROL 3 ML NEB INHALATION SCH ×2 (08:37→11:46)
[2018-12-04] MEDS: HEPARIN SODIUM,PORCINE 5,000 UNIT/ML 1 ML VIAL SQ SCH (09:09)
[2018-12-04] MEDS: INSULIN ASPART (NovoLOG) 100 UNIT/ML VIAL SQ SCH ×2 (09:09→12:42)
[2018-12-04] MEDS: ISOSORBIDE MONONITRATE ER 60 MG TAB.ER.24H PO SCH (09:10)
[2018-12-04] MEDS: METOPROLOL TARTRATE 50 MG TAB PO SCH (09:10)
[2018-12-04] MEDS: FUROSEMIDE 40 MG TAB PO SCH (09:10)
[2018-12-04] MEDS: DOXYCYCLINE 100 MG CAP PO SCH (09:10)
[2018-12-04] MEDS: ASPIRIN 325 MG TAB PO SCH (09:10)
[2018-12-04] MEDS: LOSARTAN 50 MG TAB PO SCH (09:10)
[2018-12-04] MEDS: CLOPIDOGREL 75 MG TAB PO SCH (09:10)
[2018-12-04 11:50] VITALS: PULSE 72
[2018-12-04 12:01] LABS: Glucose,Whole Blood 154 mg/dL (75-99)
--- NOTE | 2018-12-05 06:28 | DS ---
DISCHARGE SUMMARY DATE OF ADMISSION: 12/03/2018 DATE OF DISCHARGE: 12/04/2018 FINAL DIAGNOSES: 1. Acute chronic obstructive pulmonary disease exacerbation in a current smoker from acute tracheobronchitis. 2. Obesity hypoventilation syndrome. 3. Chronic nicotine dependence. Patient is a cigarette smoker. 4. Coronary artery disease, prior history of stent. 5. Hyperlipidemia. 6. Essential hypertension. 7. AICD. 8. Chronic low back pain from L2, L5 with chronic fractures. 9. Morbid obesity, body mass index greater than 50. 10.Hypertensive heart disease. 11.Chronic bilateral lower extremity venous insufficiency. HOSPITAL COURSE: This patient presented with cough, shortness of breath, wheezing. He said there were people with campfires. Patient was given bronchodilators to which he did feel better and today earlier when I saw the patient, the patient was keen to go home. Still got some cough with minimal output, overall doing much better. Treated with bronchodilators and also received oral antibiotic. PHYSICAL EXAMINATION: On examination, afebrile, pulse 70, respiration 15, blood pressure 156/92, pulse ox 95% on room air. LUNGS: Minimal wheezing. CARDIOVASCULAR: First and second sounds normal. Minimal edema. INVESTIGATIONS: White count 13.6, hemoglobin 15.9, BUN 16, creatinine 0.92. Chest x-ray, no obvious infiltrates. DISCHARGE MEDICATIONS: 1. Plavix 75 mg a day. 2. Imdur ER 60 mg a day. 3. Cozaar 50 mg a day. 4. Lipitor 40 mg q.h.s. 5. Lasix 40 mg p.o. daily. 6. Colace 100 mg b.i.d. p.r.n. 7. Vitamin B12, 1000 mcg a day. 8. DuoNeb t.i.d. p.r.n. 9. Percocet 7.5 one tablet q.i.d. p.r.n. 10.Aspirin 325 p.o. daily. 11.Desipramine 25 mg q.h.s. 12.Toprol-XL 25 mg a day. 13.Doxycycline 100 mg b.i.d., 10 capsules. 14.Prednisone per taper. Discussion and discharge planning more than 35 minutes. Follow up with Dr. Yohan Anna. The patient is advised against smoking. MMODL / IJN: [id number] /
== END 2018-12-04 13:30 | disposition home or self-care (01) ==
LOC: EC 22:51 → 4SSUR 12-03 02:57
PROVIDERS: ADMIT Hospitalist; ATTEND Internal Medicine
DX: J44.1 Chronic obstructive pulmonary disease with (acute) exacerbation (principal); E66.2 Morbid (severe) obesity with alveolar hypoventilation; Z68.43 Body mass index [BMI] 50.0-59.9, adult; E78.5 Hyperlipidemia, unspecified; F17.210 Nicotine dependence, cigarettes, uncomplicated; G89.29 Other chronic pain; T50.1X6A Underdosing of loop [high-ceiling] diuretics, initial encounter; I11.0 Hypertensive heart disease with heart failure; M84.48XA Pathological fracture, other site, initial encounter for fracture; I25.10 Atherosclerotic heart disease of native coronary artery without angina pectoris; I25.2 Old myocardial infarction; I50.32 Chronic diastolic (congestive) heart failure; J44.0 Chronic obstructive pulmonary disease with (acute) lower respiratory infection; J20.9 Acute bronchitis, unspecified; I87.2 Venous insufficiency (chronic) (peripheral); Z79.02 Long term (current) use of antithrombotics/antiplatelets; Z79.82 Long term (current) use of aspirin; Z79.899 Other long term (current) drug therapy; Z86.73 Personal history of transient ischemic attack (TIA), and cerebral infarction without residual deficits; Z95.5 Presence of coronary angioplasty implant and graft; Z95.810 Presence of automatic (implantable) cardiac defibrillator; Z82.0 Family history of epilepsy and other diseases of the nervous system; Z82.49 Family history of ischemic heart disease and other diseases of the circulatory system
CPT/HCPCS: 96376 ×3; 96372 ×2; 96374; 96375 ×2; 99285; 36415; 94660 ×2; 94640 ×4; 94760; 94644; 93005; 85379; 83880; 80053; 83735; 84484; 85025; 85610; 85730; 87070; 87205; 71046; G0378 ×2; J2270 ×3; J1644 ×2; J2930 ×2; J2405

== ENCOUNTER 2018-12-10 20:35 | Emergency (ER) | payer MEDICARE ==
[2018-12-10 21:42] LABS: Appearance,Urine Clear (Clear); Bilirubin,Urine Negative (Negative); Blood,Urine Negative (Negative); Color,Urine Light Yellow; Glucose,Urine (UA) Negative (Negative); Ketones,Urine Negative (Negative); Leukocyte Esterase,Urine Negative (Negative); Nitrite,Urine Negative (Negative); Protein,Urine Negative (Negative); Specific Gravity,Urine 1.014 (1.001-1.035); Urobilinogen,Urine <2.0 mg/dL (<2.0)
[2018-12-10 21:43] LABS: Basophils % (A) 0 %; Eosinophils # (A) 0.1 k/uL (0-0.7); Eosinophils % (A) 1 %; HCT 51.1 % (39.0-53.0); HGB 16.3 gm/dL (13.0-17.5); Lymphocytes # (A) 2.6 k/uL (1.0-4.8); Lymphocytes % (A) 21 %; MCH 29.2 pg (25.0-35.0); MCV 91.4 fL (80.0-100.0); Mean Platelet Volume 7.5; Monocytes # (A) 0.6 k/uL (0-1.0); Monocytes % (A) 5 %; Neutrophils # (A) 9.1 k/uL (1.3-7.7); Neutrophils % (A) 72 %; Platelet Count 226 k/uL (150-450); RBC 5.59 m/uL (4.30-5.90); RDW 13.8 % (11.5-15.5); WBC 12.7 k/uL (3.8-10.6)
[2018-12-10] MEDS ORDERED: KETOROLAC 30 MG/ML 1 ML VIAL IVP STA (21:43)
[2018-12-10] MEDS ORDERED: HYDROmorphone 1 MG/ML 1 ML SYRINGE IVP STA (21:43)
[2018-12-10] MEDS ORDERED: ONDANSETRON 4 MG/2 ML VIAL IVP STA (21:43)
[2018-12-10 21:51] LABS: ALT 41 U/L (21-72); AST 27 U/L (17-59); African American GFR (CKD) >90 (>60 ml/min/1.73 sqM); Albumin 3.7 g/dL (3.5-5.0); Alkaline Phosphatase 69 U/L (38-126); Amylase 117 U/L (30-110); Anion Gap 5 mmol/L; Blood Urea Nitrogen 19 mg/dL (9-20); Calcium 9.1 mg/dL (8.4-10.2); Carbon Dioxide 31 mmol/L (22-30); Chloride 103 mmol/L (98-107); Glucose 79 mg/dL (74-99); Lipase 175 U/L (23-300); Potassium 4.7 mmol/L (3.5-5.1); Sodium 139 mmol/L (137-145); Total Bilirubin 0.4 mg/dL (0.2-1.3); Total Protein 6.6 g/dL (6.3-8.2)
[2018-12-10] MEDS ORDERED: SODIUM CHLORIDE 0.9% 1,000 ML IV ONE (21:52)
--- NOTE | 2018-12-10 22:40 | ED ---
Abdominal Pain HPI - General Chief Complaint: Abdominal Pain Stated Complaint: Abd pain Time Seen by Provider: 12/10/18 21:24 Source: patient, RN notes reviewed, old records reviewed Mode of arrival: ambulatory Limitations: no limitations - History of Present Illness Initial Comments: Patient is a 63-year-old male presents emergency department today with persistent left lower quadrant abdominal pain. He states it seems to be radiating towards his back at this time. Patient states that he's had no fevers or chills. He initially thought that this was a kidney stone but is concerned that Y continues to persist and hasn't resolved itself. Patient states that he was recently admitted for COPD exacerbation. He states he started to develop pain at this time. - Related Data Home Medications Medication Instructions Recorded Confirmed Isosorbide Mononitrate ER [Imdur] 60 mg PO DAILY 04/25/17 12/03/18 Atorvastatin [Lipitor] 40 mg PO HS 02/10/18 12/03/18 Furosemide [Lasix] 40 mg PO DAILY 02/10/18 12/03/18 Cyanocobalamin (Vitamin B-12) 1,000 mcg PO DAILY 04/16/18 12/03/18 [Vitamin B-12] Ipratropium-Albuterol Nebulize 3 ml INHALATION RT-TID PRN 04/16/18 12/03/18 [Duoneb 0.5 mg-3 mg/3 ml Soln] oxyCODONE-APAP 7.5-325MG [Percocet 1 tab PO QID PRN 04/16/18 12/03/18 7.5-325 mg] Aspirin EC [Ecotrin] 325 mg PO DAILY 12/03/18 12/03/18 Desipramine [Norpramin] 25 mg PO HS 12/03/18 12/03/18 Metoprolol Succinate [Toprol XL] 25 mg PO DAILY 12/03/18 12/03/18 Previous Rx's Medication Instructions Recorded Clopidogrel [Plavix] 75 mg PO DAILY #30 tab 02/05/16 Losartan [Cozaar] 50 mg PO DAILY #30 tab 04/27/17 Docusate [Colace] 100 mg PO BID PRN cap 02/21/18 Doxycycline [Vibramycin] 100 mg PO BID #10 cap 12/04/18 predniSONE 10 mg PO DAILY #30 tab 07/08/19 Allergies Allergy/AdvReac Type Severity Reaction Status Date / Time No Known Allergies Allergy Verified 12/10/18 20:44 Review of Systems ROS Statement: Those systems with pertinent positive or pertinent negative responses have been documented in the HPI. ROS Other: All systems not noted in ROS Statement are negative. Past Medical History Past Medical History: Coronary Artery Disease (CAD), Chest Pain / Angina, COPD, CVA/TIA, Hyperlipidemia, Hypertension, Myocardial Infarction ([place]), Osteoarthritis (OA), Respiratory Disorder, Sleep Apnea/CPAP/BIPAP Additional Past Medical History / Comment(s): COPD, obesity, obesity hypoventilation syndrome, obstructive sleep apnea, suspected CHF and cor pulmonale, coronary artery disease with previous stenting of the LAD, previous history of AICD placement, osteoarthritis, CVA in 2004, chronic back pain secondary to degenerative disc disease and spinal canal stenosis, history of vertebral fracture L2 through L5, chronic lower extremity edema, diverticular disease, hyperlipidemia, hypertension, previous history of myocardial infarction,, L knee fx in past and torn R rotator cuff. cellulitis. Last Myocardial Infarction Date:: 2011 History of Any Multi-Drug Resistant Organisms: None Reported Past Surgical History: AICD, Heart Catheterization With Stent, Hernia Repair Additional Past Surgical History / Comment(s): PTCA with stent (4 total), 04/05/13 AICD [employer], umbilical hernia repair, colonoscopy, circumcism, R eye surgery for strabismus. Past Anesthesia/Blood Transfusion Reactions: No Reported Reaction Date of Last Stent Placement:: 2012 Type of Cardiac Device: AICD Device Placement Date:: 04/05/13 Past Psychological History: No Psychological Hx Reported Smoking Status: Current some day smoker Past Alcohol Use History: None Reported Past Drug Use History: None Reported - Past Family History Father Family Medical History: Musculoskeletal Disorder, Neurologic Disorder Additional Family Medical History / Comment(s): Father had parkinson's dx and at age 84 yrs. Mother Family Medical History: Myocardial Infarction ([place]) Additional Family Medical History / Comment(s): Mother had 3 vessel CABG. She of a massive [place] at the age of 53 yrs. General Exam Limitations: no limitations General appearance: alert, in no apparent distress Head exam: Present: atraumatic, normocephalic, normal inspection Eye exam: Present: normal appearance, PERRL, EOMI. Absent: scleral icterus, conjunctival injection, periorbital swelling ENT exam: Present: normal exam, mucous membranes moist Neck exam: Present: normal inspection. Absent: tenderness, meningismus, lymphadenopathy Respiratory exam: Present: normal lung sounds bilaterally. Absent: respiratory distress, wheezes, rales, rhonchi, stridor Cardiovascular Exam: Present: regular rate, normal rhythm, normal heart sounds. Absent: systolic murmur, diastolic murmur, rubs, gallop, clicks GI/Abdominal exam: Present: soft, tenderness (LLQ tenderness), normal bowel sounds. Absent: distended, guarding, rebound, rigid Extremities exam: Present: normal inspection, full ROM, normal capillary refill. Absent: tenderness, pedal edema, joint swelling, calf tenderness Back exam: Present: normal inspection Neurological exam: Present: alert, oriented X3, CN II-XII intact Psychiatric exam: Present: normal affect, normal mood Skin exam: Present: warm, dry, intact, normal color. Absent: rash Course Vital Signs 12/10/18 12/10/18 12/10/18 20:42 21:58 22:45 Temperature 99.2 F 98.9 F 99.3 F Pulse Rate 98 68 90 Respiratory 18 18 19 Rate Blood Pressure 193/113 172/104 177/105 O2 Sat by Pulse 100 94 L 90 L Oximetry 12/10/18 12/10/18 12/11/18 23:47 23:55 00:52 Temperature 97.0 F L 97.9 F Pulse Rate 69 68 69 Respiratory 19 19 19 Rate Blood Pressure 165/101 130/77 161/105 O2 Sat by Pulse 90 L 90 L 89 L Oximetry 12/11/18 01:08 Temperature Pulse Rate Respiratory 17 Rate Blood Pressure 146/91 O2 Sat by Pulse Oximetry Medical Decision Making - Medical Decision Making Patient is a 63 year old male with intractable LLQ pain. Patient has no skin changes, has tendernss to LLQ quadrant. Patient is given multiple doses of pain medication with no relief. LAbs and UA are normal. Patient has CT showing diverticulosis. No other changes. Patient offered admission for intractable pain, but states he prefers to go home. Discussed close PCP follow up. - Lab Data Result diagrams: 12/10/18 21:11 12/10/18 21:11 Lab Results 07/14/19 07/14/19 07/14/19 Range/Units 21:11 21:11 21:11 WBC 12.7 H (3.8-10.6) k/uL RBC 5.59 (4.30-5.90) m/uL Hgb 16.3 (13.0-17.5) gm/dL Hct 51.1 (39.0-53.0) % MCV 91.4 (80.0-100.0) fL MCH 29.2 (25.0-35.0) pg MCHC 32.0 (31.0-37.0) g/dL RDW 13.8 (11.5-15.5) % Plt Count 226 (150-450) k/uL Neutrophils % 72 % Lymphocytes % 21 % Monocytes % 5 % Eosinophils % 1 % Basophils % 0 % Neutrophils # 9.1 H (1.3-7.7) k/uL Lymphocytes # 2.6 (1.0-4.8) k/uL Monocytes # 0.6 (0-1.0) k/uL Eosinophils # 0.1 (0-0.7) k/uL Basophils # 0.0 (0-0.2) k/uL Sodium 139 (137-145) mmol/L Potassium 4.7 (3.5-5.1) mmol/L Chloride 103 (98-107) mmol/L Carbon Dioxide 31 H (22-30) mmol/L Anion Gap 5 mmol/L BUN 19 (9-20) mg/dL Creatinine 0.83 (0.66-1.25) mg/dL Est GFR (CKD-EPI)AfAm >90 (>60 ml/min/1.73 sqM) Est GFR (CKD-EPI)NonAf >90 (>60 ml/min/1.73 sqM) Glucose 79 (74-99) mg/dL Calcium 9.1 (8.4-10.2) mg/dL Total Bilirubin 0.4 (0.2-1.3) mg/dL AST 27 (17-59) U/L ALT 41 (21-72) U/L Alkaline Phosphatase 69 (38-126) U/L Total Protein 6.6 (6.3-8.2) g/dL Albumin 3.7 (3.5-5.0) g/dL Amylase 117 H (30-110) U/L Lipase 175 (23-300) U/L Urine Color Light Yellow Urine Appearance Clear (Clear) Urine pH 5.0 (5.0-8.0) Ur Specific [place] 1.014 (1.001-1.035) Urine Protein Negative (Negative) Urine Glucose (UA) Negative (Negative) Urine Ketones Negative (Negative) Urine Blood Negative (Negative) Urine Nitrite Negative (Negative) Urine Bilirubin Negative (Negative) Urine Urobilinogen <2.0 (<2.0) mg/dL Ur Leukocyte Esterase Negative (Negative) - Radiology Data Radiology results: report reviewed Computed tomography scan shows extensive diverticulosis. No acute evidence for diverticulitis. No acute inflammatory process demonstrated in the abdomen or pelvis. Disposition Clinical Impression: Left sided abdominal pain, Acute exacerbation of chronic obstructive airways disease Disposition: HOME SELF-CARE Condition: Good Instructions (If sedation given, give patient instructions): Abdominal Pain (ED) Additional Instructions: Patient was up with your primary care physician tomorrow. Return to the emergency department if any alarming signs or symptoms occur. Is patient prescribed a controlled substance at d/c from ED?: No Referrals: Yohan Anna MD [Primary Care Provider] - 1-2 days Time of Disposition: 00:53
--- NOTE | 2018-12-10 22:56 | CT ---
EXAM: CT Abdomen and Pelvis With Intravenous Contrast CLINICAL HISTORY: LLQ pain TECHNIQUE: Axial computed tomography images of the abdomen and pelvis with intravenous contrast. CTDI is 81 mGy and DLP is 3896 mGy-cm. This CT exam was performed using one or more of the following dose reduction techniques: automated exposure control, adjustment of the mA and/or kV according to patient size, and/or use of iterative reconstruction technique. COMPARISON: 10/14/17. FINDINGS: Lung bases: Unremarkable. No mass. No consolidation. ABDOMEN: Liver: Stable appearance to multiple areas of hypoattenuation suggestive of hepatic cysts. Gallbladder and bile ducts: Unremarkable. No calcified stones. No ductal dilation. Pancreas: Unremarkable. No mass. No ductal dilation. Spleen: Unremarkable. No splenomegaly. Adrenals: Unremarkable. No mass. Kidneys and ureters: Bilateral renal cysts. No evidence for hydronephrosis. Renal calculi. No evidence for solid mass. Stomach and bowel: There is diffuse diverticulosis throughout the colon no definite inflammatory changes are noted. No real change when compared to the prior study PELVIS: Appendix: No findings to suggest acute appendicitis. Bladder: Unremarkable. No mass. Reproductive: Unremarkable as visualized. ABDOMEN and PELVIS: Intraperitoneal space: Unremarkable. No free air. No significant fluid collection. Bones/joints: No acute fracture. No dislocation. Soft tissues: Unremarkable. Vasculature: Unremarkable. No abdominal aortic aneurysm. Lymph nodes: Unremarkable. No enlarged lymph nodes. IMPRESSION: Extensive diverticulosis. No definite evidence for diverticulitis. No acute inflammatory process demonstrated in the abdomen or pelvis.
[2018-12-10] MEDS ORDERED: LABETALOL SYRINGE 5 MG/ML IVP STA (23:21)
[2018-12-10] MEDS ORDERED: MORPHINE SULFATE 4 MG/ML SYRINGE IVP STA (23:45)
[2018-12-11 00:54] VITALS: PULSE 69; TEMP 97.9
[2018-12-11 01:21] VITALS: BP 146/91; RESP 17
== END 2018-12-11 01:08 | disposition home or self-care (01) ==
LOC: EC 20:35
DX: R10.32 Left lower quadrant pain (principal); M54.5 Low back pain; J44.1 Chronic obstructive pulmonary disease with (acute) exacerbation; K57.90 Diverticulosis of intestine, part unspecified, without perforation or abscess without bleeding; I25.119 Atherosclerotic heart disease of native coronary artery with unspecified angina pectoris; E78.5 Hyperlipidemia, unspecified; I10 Essential (primary) hypertension; I25.2 Old myocardial infarction; M19.90 Unspecified osteoarthritis, unspecified site; G47.33 Obstructive sleep apnea (adult) (pediatric); F17.200 Nicotine dependence, unspecified, uncomplicated; Z79.82 Long term (current) use of aspirin; Z79.899 Other long term (current) drug therapy; Z86.73 Personal history of transient ischemic attack (TIA), and cerebral infarction without residual deficits; Z99.89 Dependence on other enabling machines and devices; Z95.810 Presence of automatic (implantable) cardiac defibrillator; Z95.5 Presence of coronary angioplasty implant and graft
CPT/HCPCS: 36415; 80053; 82150; 83690; 85025; 81003; 74177; 99285; 96374; 96375 ×4; 96361 ×2; J2270; J2405; J1885; J1170; Q9967

== ENCOUNTER 2018-12-20 13:08 | Observation (INO) | payer MEDICARE ==
[2018-12-20] MEDS ORDERED: MORPHINE SULFATE 4 MG/ML SYRINGE IVP STA ×2 (13:58→15:43)
[2018-12-20] MEDS ORDERED: SODIUM CHLORIDE 0.9% 1,000 ML IV STA (13:58)
[2018-12-20] MEDS ORDERED: ONDANSETRON 4 MG/2 ML VIAL IVP STA (13:58)
[2018-12-20] MEDS ORDERED: KETOROLAC 30 MG/ML 1 ML VIAL IVP STA (13:58)
[2018-12-20 14:30] LABS: Basophils % (A) 1 %; Eosinophils # (A) 0.2 k/uL (0-0.7); Eosinophils % (A) 2 %; HCT 49.2 % (39.0-53.0); HGB 15.8 gm/dL (13.0-17.5); Lymphocytes # (A) 1.7 k/uL (1.0-4.8); Lymphocytes % (A) 19 %; MCH 29.2 pg (25.0-35.0); MCHC 32.2 g/dL (31.0-37.0); MCV 90.9 fL (80.0-100.0); Mean Platelet Volume 7.6; Monocytes # (A) 0.5 k/uL (0-1.0); Monocytes % (A) 5 %; Neutrophils # (A) 6.1 k/uL (1.3-7.7); Neutrophils % (A) 71 %; Platelet Count 179 k/uL (150-450); RBC 5.41 m/uL (4.30-5.90); RDW 14.3 % (11.5-15.5); WBC 8.6 k/uL (3.8-10.6)
[2018-12-20 14:37] LABS: Appearance,Urine Clear (Clear); Bilirubin,Urine Negative (Negative); Blood,Urine Negative (Negative); Color,Urine Yellow; Glucose,Urine (UA) Negative (Negative); Ketones,Urine Negative (Negative); Leukocyte Esterase,Urine Negative (Negative); Nitrite,Urine Negative (Negative); PH, Urine 6.5 (5.0-8.0); Protein,Urine Negative (Negative); Urobilinogen,Urine <2.0 mg/dL (<2.0)
[2018-12-20 14:39] LABS: ALT 37 U/L (21-72); AST 25 U/L (17-59); African American GFR (CKD) >90 (>60 ml/min/1.73 sqM); Albumin 3.7 g/dL (3.5-5.0); Alkaline Phosphatase 57 U/L (38-126); Amylase 97 U/L (30-110); Anion Gap 4 mmol/L; Blood Urea Nitrogen 21 mg/dL (9-20); Calcium 9.4 mg/dL (8.4-10.2); Carbon Dioxide 32 mmol/L (22-30); Chloride 102 mmol/L (98-107); Glucose 101 mg/dL (74-99); Potassium 4.9 mmol/L (3.5-5.1); Sodium 138 mmol/L (137-145); Total Bilirubin 0.6 mg/dL (0.2-1.3); Total Protein 6.4 g/dL (6.3-8.2)
--- NOTE | 2018-12-20 15:18 | US ---
EXAMINATION TYPE: US gallbladder DATE OF EXAM: 12/20/2018 COMPARISON: NONE CLINICAL HISTORY: Pain. Patient states history of gallstones, abdominal pain, patient not NPO ate 4 h ours prior EXAM MEASUREMENTS: Liver Length: 18.1 cm Gallbladder Wall: 0.4 cm CBD: 0.9 cm Right Kidney: 12.6 x 6.5 x 6.0 cm Technical limitations due to patient's body habitus (350+ pounds) and large amount of overlying bow el content Pancreas: Obscured by bowel gas Liver: limited evaluation, cystic area = 1.6 x 1.4 x 1.8cm Gallbladder: stones noted, thickened GB wall Evidence for sonographic Bryant's sign: yes CBD: dilated Right Kidney: cystic area = 2.6 x 2.1 x 3.0cm IMPRESSION: 1. Correlate for acute cholecystitis.
--- NOTE | 2018-12-20 15:55 | ED ---
Abdominal Pain HPI <HammadJose R - Last Filed: 12/20/18 16:05> - General Source: patient Mode of arrival: ambulatory Limitations: no limitations <Tram Queen - Last Filed: 12/20/18 17:17> - General Chief Complaint: Abdominal Pain Stated Complaint: abd pain/Gallbladder Time Seen by Provider: 12/20/18 13:24 - History of Present Illness Initial Comments: Patient is a 63-year-old male presenting to the emergency Department with complaints of severe right upper quadrant pain 2 days. Patient states he was in the ER about a week ago for the same pain although it wasn't as bad. Patient states he did have a computed tomography scan and it didn't show any abnormalities. Patient states he had a physician, to his house yesterday and did an ultrasound and stated he has lots of gallstones in his gallbladder and that if he was having severe pain he should go to the ER. Patient states he's been unable to eat or drink much for the last 2 days and the pain has become severe. Patient admits to nausea and vomiting as well. Patient denies fevers, chills, diarrhea. Patient has history of umbilical hernia repair, no other abdominal surgeries. Patient's last BM was 2 days ago which was normal. Patient admits to taking Percocets at home for back pain. No other complaints at this time. (Tram Queen) - Related Data Home Medications Medication Instructions Recorded Confirmed Isosorbide Mononitrate ER [Imdur] 60 mg PO DAILY 04/25/17 12/20/18 Atorvastatin [Lipitor] 40 mg PO HS 02/10/18 12/20/18 Furosemide [Lasix] 40 mg PO DAILY 02/10/18 12/20/18 Cyanocobalamin (Vitamin B-12) 1,000 mcg PO DAILY 04/16/18 12/20/18 [Vitamin B-12] Ipratropium-Albuterol Nebulize 3 ml INHALATION RT-TID PRN 04/16/18 12/20/18 [Duoneb 0.5 mg-3 mg/3 ml Soln] oxyCODONE-APAP 7.5-325MG [Percocet 1 tab PO QID PRN 04/16/18 12/20/18 7.5-325 mg] Aspirin EC [Ecotrin] 325 mg PO DAILY 12/03/18 12/20/18 Desipramine [Norpramin] 25 mg PO HS 12/03/18 12/20/18 Metoprolol Succinate [Toprol XL] 25 mg PO DAILY 12/03/18 12/20/18 Previous Rx's Medication Instructions Recorded Clopidogrel [Plavix] 75 mg PO DAILY #30 tab 02/05/16 Losartan [Cozaar] 50 mg PO DAILY #30 tab 04/27/17 Allergies Allergy/AdvReac Type Severity Reaction Status Date / Time No Known Allergies Allergy Verified 12/20/18 13:38 Review of Systems ROS Other: All systems not noted in ROS Statement are negative. <Jose R Cueva - Last Filed: 12/20/18 16:05> ROS Other: All systems not noted in ROS Statement are negative. <Tram Queen - Last Filed: 12/20/18 17:17> ROS Statement: Those systems with pertinent positive or pertinent negative responses have been documented in the HPI. Past Medical History Past Medical History: Coronary Artery Disease (CAD), Chest Pain / Angina, COPD, CVA/TIA, Hyperlipidemia, Hypertension, Myocardial Infarction ([place]), Osteoarthritis (OA), Respiratory Disorder, Sleep Apnea/CPAP/BIPAP Additional Past Medical History / Comment(s): COPD, obesity, obesity hypov entilation syndrome, obstructive sleep apnea, suspected CHF and cor pulmonale, coronary artery disease with previous stenting of the LAD, previous history of AICD placement, osteoarthritis, CVA in 2004, chronic back pain secondary to degenerative disc disease and spinal canal stenosis, history of vertebral fracture L2 through L5, chronic lower extremity edema, diverticular disease, hyperlipidemia, hypertension, previous history of myocardial infarction,, L knee fx in past and torn R rotator cuff. cellulitis. Last Myocardial Infarction Date:: 2011 History of Any Multi-Drug Resistant Organisms: None Reported Past Surgical History: AICD, Heart Catheterization With Stent, Hernia Repair Additional Past Surgical History / Comment(s): PTCA with stent (4 total), 04/05/13 AICD [employer], umbilical hernia repair, colonoscopy, circumcism, R eye surgery for strabismus. Past Anesthesia/Blood Transfusion Reactions: No Reported Reaction Date of Last Stent Placement:: 2012 Type of Cardiac Device: AICD Device Placement Date:: 11/7/13 Past Psychological History: No Psychological Hx Reported Smoking Status: Current some day smoker Past Alcohol Use History: None Reported Past Drug Use History: None Reported - Past Family History Father Family Medical History: Musculoskeletal Disorder, Neurologic Disorder Additional Family Medical History / Comment(s): Father had parkinson's dx and at age 84 yrs. Mother Family Medical History: Myocardial Infarction ([place]) Additional Family Medical History / Comment(s): Mother had 3 vessel CABG. She of a massive [place] at the age of 53 yrs. <Tram Queen - Last Filed: 12/20/18 17:17> General Exam Limitations: no limitations <Tram Queen - Last Filed: 12/20/18 17:17> - General Exam Comments Initial Comments: GENERAL: Morbidly obese, appears to be in pain. HEAD: Atraumatic, normocephalic. EYES: Pupils equal round and reactive to light, extraocular movements intact, sclera anicteric, conjunctiva are normal. ENT: TMs normal, nares patent, oropharynx clear without exudates. Moist mucous membranes. NECK: Normal range of motion, supple without lymphadenopathy or JVD. LUNGS: Breath sounds clear to auscultation bilaterally and equal. No wheezes rales or rhonchi. HEART: Regular rate and rhythm without murmurs, rubs or gallops. ABDOMEN: Very tender to palpation right upper quadrant. Positive Bryant sign. Soft, normoactive bowel sounds. no rebound. No masses appreciated. : Deferred EXTREMITIES: Normal range of motion, no pitting or edema. No clubbing or cyanosis. NEUROLOGICAL: Cranial nerves II through XII grossly intact. Normal speech, normal gait. PSYCH: Normal mood, normal affect. SKIN: Warm, Dry, normal turgor, no rashes or lesions noted. (Tram Queen) Course <Tram Queen - Last Filed: 12/20/18 17:17> Vital Signs 12/20/18 12/20/18 13:12 14:30 Temperature 98.2 F Pulse Rate 59 L 62 Respiratory 16 18 Rate Blood Pressure 139/93 128/82 O2 Sat by Pulse 94 L 94 L Oximetry - Reevaluation(s) Reevaluation #1: 12/20/18 16:54 Ultrasound findings were reviewed. Concern for acute cholecystitis. Contacted surgery rehabilitation assistant. Awaiting callback. Patient's vital signs are stable. (Tram Queen) Medical Decision Making - Lab Data Result diagrams: 12/20/18 14:26 12/20/18 14:26 <Jose R Cueva - Last Filed: 12/20/18 16:05> - Lab Data Result diagrams: 12/20/18 14:26 12/20/18 14:26 <Tram Queen - Last Filed: 12/20/18 17:17> - Medical Decision Making I, Tano Cueva, personally saw and examined the patient. I have reviewed and agree with the PA findings, including all diagnostic interpretations and treatment plans as written unless otherwise stated. I was present for the barba portions of any procedures performed and the inclusive time noted for any critical care statement. (Jose R Cueva) Patient is a 63-year-old male presenting with severe right upper quadrant pain 2 days. Patient has been having the pain for over a week but increased last 2 days. Patient had an at-home ultrasound performed yesterday and they stated he has loss of gallstones and if he was having severe pain he should come to the ER. Patient also admits to nausea and vomiting. Patient denies fever, chills. On exam patient has severe right upper quadrant tenderness. Positive Bryant sign. CBC shows a normal white count of 8.6. CMP and UA are not impressive. Ultrasound of the gallbladder reveals gallstones, thickened gallbladder wall. CBD is dilated. Correlate for acute cholecystitis. Patient was given fluids, pain medication and Zofran. Patient continues to have right upper quadrant pain. Case discussed with Dr. Cueva. Patient will be admitted for acute cholecystitis under Dr. Mixon with consult to Dr. Bean (Tram Queen) - Lab Data Lab Results 12/20/18 12/20/18 12/20/18 Range/Units 14:26 14:26 14:26 WBC 8.6 (3.8-10.6) k/uL RBC 5.41 (4.30-5.90) m/uL Hgb 15.8 (13.0-17.5) gm/dL Hct 49.2 (39.0-53.0) % MCV 90.9 (80.0-100.0) fL MCH 29.2 (25.0-35.0) pg MCHC 32.2 (31.0-37.0) g/dL RDW 14.3 (11.5-15.5) % Plt Count 179 (150-450) k/uL Neutrophils % 71 % Lymphocytes % 19 % Monocytes % 5 % Eosinophils % 2 % Basophils % 1 % Neutrophils # 6.1 (1.3-7.7) k/uL Lymphocytes # 1.7 (1.0-4.8) k/uL Monocytes # 0.5 (0-1.0) k/uL Eosinophils # 0.2 (0-0.7) k/uL Basophils # 0.0 (0-0.2) k/uL Sodium 138 (137-145) mmol/L Potassium 4.9 (3.5-5.1) mmol/L Chloride 102 (98-107) mmol/L Carbon Dioxide 32 H (22-30) mmol/L Anion Gap 4 mmol/L BUN 21 H (9-20) mg/dL Creatinine 0.98 (0.66-1.25) mg/dL Est GFR (CKD-EPI)AfAm >90 (>60 ml/min/1.73 sqM) Est GFR (CKD-EPI)NonAf 83 (>60 ml/min/1.73 sqM) Glucose 101 H (74-99) mg/dL Plasma Lactic Acid Hernán 1.0 (0.7-2.0) mmol/L Calcium 9.4 (8.4-10.2) mg/dL Total Bilirubin 0.6 (0.2-1.3) mg/dL AST 25 (17-59) U/L ALT 37 (21-72) U/L Alkaline Phosphatase 57 (38-126) U/L Total Protein 6.4 (6.3-8.2) g/dL Albumin 3.7 (3.5-5.0) g/dL Amylase 97 (30-110) U/L Lipase 160 (23-300) U/L Urine Color Urine Appearance (Clear) Urine pH (5.0-8.0) Ur Specific [place] (1.001-1.035) Urine Protein (Negative) Urine Glucose (UA) (Negative) Urine Ketones (Negative) Urine Blood (Negative) Urine Nitrite (Negative) Urine Bilirubin (Negative) Urine Urobilinogen (<2.0) mg/dL Ur Leukocyte Esterase (Negative) 12/20/18 Range/Units 14:26 WBC (3.8-10.6) k/uL RBC (4.30-5.90) m/uL Hgb (13.0-17.5) gm/dL Hct (39.0-53.0) % MCV (80.0-100.0) fL MCH (25.0-35.0) pg MCHC (31.0-37.0) g/dL RDW (11.5-15.5) % Plt Count (150-450) k/uL Neutrophils % % Lymphocytes % % Monocytes % % Eosinophils % % Basophils % % Neutrophils # (1.3-7.7) k/uL Lymphocytes # (1.0-4.8) k/uL Monocytes # (0-1.0) k/uL Eosinophils # (0-0.7) k/uL Basophils # (0-0.2) k/uL Sodium (137-145) mmol/L Potassium (3.5-5.1) mmol/L Chloride (98-107) mmol/L Carbon Dioxide (22-30) mmol/L Anion Gap mmol/L BUN (9-20) mg/dL Creatinine (0.66-1.25) mg/dL Est GFR (CKD-EPI)AfAm (>60 ml/min/1.73 sqM) Est GFR (CKD-EPI)NonAf (>60 ml/min/1.73 sqM) Glucose (74-99) mg/dL Plasma Lactic Acid [place] (0.7-2.0) mmol/L Calcium (8.4-10.2) mg/dL Total Bilirubin (0.2-1.3) mg/dL AST (17-59) U/L ALT (21-72) U/L Alkaline Phosphatase (38-126) U/L Total Protein (6.3-8.2) g/dL Albumin (3.5-5.0) g/dL Amylase (30-110) U/L Lipase (23-300) U/L Urine Color Yellow Urine Appearance Clear (Clear) Urine pH 6.5 (5.0-8.0) Ur Specific [place] 1.020 (1.001-1.035) Urine Protein Negative (Negative) Urine Glucose (UA) Negative (Negative) Urine Ketones Negative (Negative) Urine Blood Negative (Negative) Urine Nitrite Negative (Negative) Urine Bilirubin Negative (Negative) Urine Urobilinogen <2.0 (<2.0) mg/dL Ur Leukocyte Esterase Negative (Negative) Disposition <Jose R Cueva - Last Filed: 12/20/18 16:05> Is patient prescribed a controlled substance at d/c from ED?: No Decision Date: 12/20/18 Decision Time: 17:16 <Tram Queen - Last Filed: 12/20/18 17:17> Clinical Impression: Acute cholecystitis Disposition: ADMITTED IP TO THIS HOSP Condition: Stable Referrals: [place] Min MD [Primary Care Provider] - 1-2 days
[2018-12-20] MEDS ORDERED: PIPERACILLIN-TAZOBACTAM 3.375 GM in SODIUM CHLORIDE 0.9% 100 ML IVPB STA (17:03)
[2018-12-20] MEDS ORDERED: oxyCODONE-APAP 5-325MG 1 EACH TAB PO PRN (17:09)
[2018-12-20] MEDS ORDERED: BISACODYL 5 MG TABLET.DR PO PRN (17:09)
[2018-12-20] MEDS ORDERED: traMADol 50 MG TAB PO PRN (17:09)
[2018-12-20] MEDS ORDERED: NALOXONE 0.4 MG/ML 1 ML VIAL IV PRN (17:09)
[2018-12-20] MEDS ORDERED: ONDANSETRON 4 MG/2 ML VIAL IVP PRN (17:09)
[2018-12-20] MEDS ORDERED: ACETAMINOPHEN TAB 325 MG TAB PO PRN (17:09)
[2018-12-20] MEDS ORDERED: oxyCODONE-APAP 10-325MG 1 EACH TAB PO STA (17:14)
[2018-12-20] MEDS: SODIUM CHLORIDE 0.9% 1,000 ML IV SCH (17:25)
--- NOTE | 2018-12-20 18:08 | P.HPIM ---
History of Present Illness H&P Date: 12/20/18 Chief Complaint: Abdominal pain 63-year-old day male with past medical history of hypertension coronary artery disease this evening as status post ICD placement was admitted to the hospital for abdominal pain that has been going on and off for the last week or so mainly in the right upper quadrant the patient went to see his primary care physician and patient was found to have acute cholecystitis admitted to the hospital was evaluated by surgery the plan to have cholecystectomy in a.m. patient denies any chest pain no shortness of breath denies any vomiting Review of systems and systems has been reviewed all negative and positive findings as per history of present illness Past Medical History: Coronary Artery Disease (CAD), Chest Pain / Angina, COPD, CVA/TIA, Hyperlipidemia, Hypertension, Myocardial Infarction (CA), Osteoarthr itis (OA), Respiratory Disorder, Sleep Apnea/CPAP/BIPAP Additional Past Medical History / Comment(s): COPD, obesity, obesity hypoventilation syndrome, obstructive sleep apnea, suspected CHF and cor pulmonale, coronary artery disease with previous stenting of the LAD, previous history of AICD placement, osteoarthritis, CVA in 2004, chronic back pain secondary to degenerative disc disease and spinal canal stenosis, history of vertebral fracture L2 through L5, chronic lower extremity edema, diverticular disease, hyperlipidemia, hypertension, previous history of myocardial infarction,, L knee fx in past and torn R rotator cuff. cellulitis. Last Myocardial Infarction Date:: 2011 History of Any Multi-Drug Resistant Organisms: None Reported Past Surgical History: AICD, Heart Catheterization With Stent, Hernia Repair Additional Past Surgical History / Comment(s): PTCA with stent (4 total), 04/05/13 AICD [employer], 1990's umbilical hernia repair, colonoscopy, ci rcumcism, R eye surgery for strabismus. Past Anesthesia/Blood Transfusion Reactions: No Reported Reaction Date of Last Stent Placement:: 2012 Type of Cardiac Device: AICD Device Placement Date:: 04/05/13 Past Psychological History: No Psychological Hx Reported Smoking Status: Current some day smoker Past Alcohol Use History: None Reported Past Drug Use History: None Reported - Past Family History Father Family Medical History: Musculoskeletal Disorder, Neurologic Disorder Additional Family Medical History / Comment(s): Father had parkinson's dx and at age 84 yrs. Mother Family Medical History: Myocardial Infarction ([place]) Additional Family Medical History / Comment(s): Mother had 3 vessel CABG. She of a massive [place] at the age of 53 yrs. Constitutional: No acute distress, conversant, pleasant Eyes: Anicteric sclerae, moist conjunctiva, no lid-lag PERRLA ENMT: Neck: Supple, FROM, no masses, or JVD No carotid bruits No thyromegaly Lungs: Clear to auscultation Clear to percussion Normal respiratory effort, no accessory muscle use Cardiovascular: Heart regular in rate and rhythm, No murmurs, gallops, or rubs No peripheral edema Abdominal: Soft r, no guarding, rebound or rigidity some right upper quadrant tenderness Skin: Normal temperature, tone, texture, turgor No induration No subcutaneous nodules No rash, lesions No ulcers Extremities: No digital cyanosis No clubbing Pedal pulses intact and symmetrical Radial pulses intact and symmetrical Normal gait and station No calf tenderness Psychiatric:Alert and oriented to person, place and time Appropriate affect Intact judgement Neuro: No obvious focal weakness Vital Signs - 24 hr 12/20/18 12/20/18 12/20/18 13:12 14:30 17:29 Temperature 98.2 F 97.9 F Pulse Rate 59 L 62 64 Respiratory 16 18 18 Rate Blood Pressure 139/93 128/82 121/81 O2 Sat by Pulse 94 L 94 L 95 Oximetry Laboratory Results - Last 24 Hours 12/20/18 12/20/18 12/20/18 14:26 14:26 14:26 WBC 8.6 RBC 5.41 Hgb 15.8 Hct 49.2 MCV 90.9 MCH 29.2 MCHC 32.2 RDW 14.3 Plt Count 179 Neutrophils % 71 Lymphocytes % 19 Monocytes % 5 Eosinophils % 2 Basophils % 1 Neutrophils # 6.1 Lymphocytes # 1.7 Monocytes # 0.5 Eosinophils # 0.2 Basophils # 0.0 Sodium 138 Potassium 4.9 Chloride 102 Carbon Dioxide 32 H Anion Gap 4 BUN 21 H Creatinine 0.98 Est GFR (CKD-EPI)AfAm >90 Est GFR (CKD-EPI)NonAf 83 Glucose 101 H Plasma Lactic Acid Hernán 1.0 Calcium 9.4 Total Bilirubin 0.6 AST 25 ALT 37 Alkaline Phosphatase 57 Total Protein 6.4 Albumin 3.7 Amylase 97 Lipase 160 Urine Color Urine Appearance Urine pH Ur Specific [place] Urine Protein Urine Glucose (UA) Urine Ketones Urine Blood Urine Nitrite Urine Bilirubin Urine Urobilinogen Ur Leukocyte Esterase 12/20/18 14:26 WBC RBC Hgb Hct MCV MCH MCHC RDW Plt Count Neutrophils % Lymphocytes % Monocytes % Eosinophils % Basophils % Neutrophils # Lymphocytes # Monocytes # Eosinophils # Basophils # Sodium Potassium Chloride Carbon Dioxide Anion Gap BUN Creatinine Est GFR (CKD-EPI)AfAm Est GFR (CKD-EPI)NonAf Glucose Plasma Lactic Acid Hernán Calcium Total Bilirubin AST ALT Alkaline Phosphatase Total Protein Albumin Amylase Lipase Urine Color Yellow Urine Appearance Clear Urine pH 6.5 Ur Specific [place] 1.020 Urine Protein Negative Urine Glucose (UA) Negative Urine Ketones Negative Urine Blood Negative Urine Nitrite Negative Urine Bilirubin Negative Urine Urobilinogen <2.0 Ur Leukocyte Esterase Negative Assessment and plan Acute cholecystitis we'll keep the patient on Zosyn and pain control we'll keep the patient nothing by mouth with IV hydration No evidence of sepsis at this time Surgery evaluated the patient and the plan to have surgery in am Coronary artery disease no evidence of acute coronary syndrome at this time will consult cardiology Plavix needs to be hold before the surgery DVT and GI prophylaxis start Lovenox after surgery Hypertension resume home medications Admit the patient regular medical floor Past Medical History Past Medical History: Coronary Artery Disease (CAD), Chest Pain / Angina, COPD, CVA/TIA, Hyperlipidemia, Hypertension, Myocardial Infarction (CA), Osteoarthritis (OA), Respiratory Disorder, Sleep Apnea/CPAP/BIPAP Additional Past Medical History / Comment(s): COPD, obesity, obesity hypoventilation syndrome, obstructive sleep apnea, suspected CHF and cor p ulmonale, coronary artery disease with previous stenting of the LAD, previous history of AICD placement, osteoarthritis, CVA in 2004, chronic back pain secondary to degenerative disc disease and spinal canal stenosis, history of vertebral fracture L2 through L5, chronic lower extremity edema, diverticular disease, hyperlipidemia, hypertension, previous history of myocardial infarction,, L knee fx in past and torn R rotator cuff. cellulitis. Last Myocardial Infarction Date:: 2011 History of Any Multi-Drug Resistant Organisms: None Reported Past Surgical History: AICD, Heart Catheterization With Stent, Hernia Repair Additional Past Surgical History / Comment(s): PTCA with stent (4 total), 04/05/13 AICD [employer], 1989' umbilical hernia repair, colonoscopy, circumcism, R eye surgery for strabismus. Past Anesthesia/Blood Transfusion Reactions: No Reported Reaction Date of Last Stent Placement:: 2012 Type of Cardiac Device: AICD Device Placement Date:: 04/05/13 Past Psychological History: No Psychological Hx Reported Smoking Status: Current some day smoker Past Alcohol Use History: None Reported Past Drug Use History: None Reported - Past Family History Father Family Medical History: Musculoskeletal Disorder, Neurologic Disorder Additional Family Medical History / Comment(s): Father had parkinson's dx and at age 84 yrs. Mother Family Medical History: Myocardial Infarction ([place]) Additional Family Medical History / Comment(s): Mother had 3 vessel CABG. She of a massive CA at the age of 53 yrs. Medications and Allergies Home Medications Medication Instructions Recorded Confirmed Type Clopidogrel [Plavix] 75 mg PO DAILY #30 tab 02/05/16 12/20/18 Rx Isosorbide Mononitrate ER [Imdur] 60 mg PO DAILY 04/25/17 12/20/18 History Losartan [Cozaar] 50 mg PO DAILY #30 tab 04/27/17 12/20/18 Rx Atorvastatin [Lipitor] 40 mg PO HS 02/10/18 12/20/18 History Furosemide [Lasix] 40 mg PO DAILY 02/10/18 12/20/18 History Cyanocobalamin (Vitamin B-12) 1,000 mcg PO DAILY 04/16/18 12/20/18 History [Vitamin B-12] Ipratropium-Albuterol Nebulize 3 ml INHALATION RT-TID PRN 04/16/18 12/20/18 History [Duoneb 0.5 mg-3 mg/3 ml Soln] oxyCODONE-APAP 7.5-325MG [Percocet 1 tab PO QID PRN 04/16/18 12/20/18 History 7.5-325 mg] Aspirin EC [Ecotrin] 325 mg PO DAILY 12/03/18 12/20/18 History Desipramine [Norpramin] 25 mg PO HS 12/03/18 12/20/18 History Metoprolol Succinate [Toprol XL] 25 mg PO DAILY 12/03/18 12/20/18 History Allergies Allergy/AdvReac Type Severity Reaction Status Date / Time No Known Allergies Allergy Verified 12/20/18 13:38 Physical Exam Vitals: Vital Signs Temp Pulse Resp BP Pulse Ox 12/20/18 17:29 97.9 F 64 18 121/81 95 07/24/19 14:30 62 18 128/82 94 L 12/20/18 13:12 98.2 F 59 L 16 139/93 94 L Intake and Output 12/20/18 12/20/18 12/20/18 06:59 14:59 22:59 Other: Weight 159.211 kg Results CBC & Chem 7: 12/20/18 14:26 12/20/18 14:26 Labs: Abnormal Lab Results - Last 24 Hours (Table) 12/20/18 Range/Units 14:26 Carbon Dioxide 32 H (22-30) mmol/L BUN 21 H (9-20) mg/dL Glucose 101 H (74-99) mg/dL
[2018-12-20] MEDS ORDERED: MORPHINE SULFATE 2 MG/ML SYRINGE IVP PRN (18:14)
--- NOTE | 2018-12-20 18:36 | P.PN ---
Progress Note - Text Progress Note Date: 12/20/18 We will hold Plavix and aspirin may need to be started after surgery or as recommended by cardiology
[2018-12-20 18:53] LABS: Creatine Kinase 112 U/L (55-170)
[2018-12-20 19:05] LABS: Troponin I <0.012 ng/mL (0.000-0.034)
[2018-12-20] MEDS: HYDROmorphone 0.5 MG/0.5 ML SYRINGE IVP PRN ×2 (19:24→22:07)
[2018-12-20 19:37] VITALS: RESP 16; TEMP 97.5
[2018-12-20] MEDS ORDERED: ATORVASTATIN 40 MG TAB PO SCH (21:00)
[2018-12-20] MEDS ORDERED: DESIPRAMINE 25 MG TAB PO SCH (21:00)
[2018-12-20] MEDS: FAMOTIDINE 20 MG TAB PO SCH (21:54)
[2018-12-20 22:28] VITALS: BMI 47.6
[2018-12-20] MEDS: PIPERACILLIN-TAZOBACTAM 3.375 GM in SODIUM CHLORIDE 0.9% 100 ML IVPB SCH (23:01)
[2018-12-21] MEDS: HYDROmorphone 0.5 MG/0.5 ML SYRINGE IVP PRN ×5 (01:05→14:10)
[2018-12-21] MEDS: SODIUM CHLORIDE 0.9% 1,000 ML IV SCH (01:08)
[2018-12-21] MEDS: PIPERACILLIN-TAZOBACTAM 3.375 GM in SODIUM CHLORIDE 0.9% 100 ML IVPB SCH (07:38)
[2018-12-21 08:22] VITALS: BP 150/87; PULSE 67
[2018-12-21 08:54] LABS: ALT 30 U/L (21-72); AST 20 U/L (17-59); African American GFR (CKD) >90 (>60 ml/min/1.73 sqM); Albumin 3.1 g/dL (3.5-5.0); Alkaline Phosphatase 55 U/L (38-126); Anion Gap 3 mmol/L; Blood Urea Nitrogen 20 mg/dL (9-20); Calcium 8.8 mg/dL (8.4-10.2); Carbon Dioxide 34 mmol/L (22-30); Chloride 100 mmol/L (98-107); Glucose 83 mg/dL (74-99); Potassium 4.5 mmol/L (3.5-5.1); Sodium 137 mmol/L (137-145); Total Bilirubin 0.6 mg/dL (0.2-1.3); Total Protein 5.5 g/dL (6.3-8.2)
[2018-12-21 08:57] LABS: Basophils % (A) 0 %; Eosinophils # (A) 0.2 k/uL (0-0.7); Eosinophils % (A) 2 %; HCT 47.5 % (39.0-53.0); HGB 15.1 gm/dL (13.0-17.5); Lymphocytes % (A) 26 %; MCHC 31.7 g/dL (31.0-37.0); MCV 91.4 fL (80.0-100.0); Mean Platelet Volume 7.6; Monocytes # (A) 0.4 k/uL (0-1.0); Monocytes % (A) 5 %; Neutrophils # (A) 5.2 k/uL (1.3-7.7); Neutrophils % (A) 66 %; Platelet Count 144 k/uL (150-450); RDW 14.1 % (11.5-15.5)
[2018-12-21] MEDS ORDERED: METOPROLOL SUCCINATE (ER) 25 MG TAB.ER.24H PO SCH (09:00)
[2018-12-21] MEDS ORDERED: ISOSORBIDE MONONITRATE ER 60 MG TAB.ER.24H PO SCH (09:00)
[2018-12-21] MEDS ORDERED: ASPIRIN 81 MG PO SCH (09:00)
[2018-12-21] MEDS: FAMOTIDINE 20 MG TAB PO SCH (09:12)
--- NOTE | 2018-12-21 09:15 | P.GSCN ---
History of Present Illness Consult date: 12/21/18 History of present illness: 63-year-old male presented to the emergency department after being instructed by his primary care physician. The patient does receive home care from physicians based on multiple medical comorbidities. He was complaining of right upper quadrant abdominal pain and a ultrasound was performed at home. He was called the next morning by his primary care physician and informed to present to the emergency department with concerns of cholecystitis. He presents today with no significant appetite. He denies nausea or vomiting episodes. He does complain of pain in the right upper quadrant. He has not been on any antibiotics for cholecystitis. He does have multiple medical comorbidities, including CHF, CAD and passed AICD placement. When questioned, the patient denied being on any anticoagulation. On further investigation in the patient's chart, the patient does appear to be taking Plavix and full dose aspirin. He states his only abdominal surgery is a previous umbilical hernia repair. Review of Systems All systems: negative Past Medical History Past Medical History: Coronary Artery Disease (CAD), Chest Pain / Angina, COPD, CVA/TIA, Hyperlipidemia, Hypertension, Myocardial Infarction ([place]), Osteoarthritis (OA), Respiratory Disorder, Sleep Apnea/CPAP/BIPAP Additional Past Medical History / Comment(s): COPD, obesity, obesity hypove ntilation syndrome, obstructive sleep apnea, suspected CHF and cor pulmonale, coronary artery disease with previous stenting of the LAD, previous history of AICD placement, osteoarthritis, CVA in 2004, chronic back pain secondary to degenerative disc disease and spinal canal stenosis, history of vertebral fracture L2 through L5, chronic lower extremity edema, diverticular disease, hyperlipidemia, hypertension, previous history of myocardial infarction,, L knee fx in past and torn R rotator cuff. cellulitis. Last Myocardial Infarction Date:: 2011 History of Any Multi-Drug Resistant Organisms: None Reported Past Surgical History: AICD, Heart Catheterization With Stent, Hernia Repair Additional Past Surgical History / Comment(s): PTCA with stent (4 total), 04/05/13 AICD [employer], 1989' umbilical hernia repair, colonoscopy, circumcism, R eye surgery for strabismus. Past Anesthesia/Blood Transfusion Reactions: No Reported Reaction Date of Last Stent Placement:: 2012 Type of Cardiac Device: AICD Device Placement Date:: 04/05/13 Past Psychological History: No Psychological Hx Reported Additional Psychological History / Comment(s): Pt is living in a home with roomates. He can drive. He states he uses a cane or walker at home. Smoking Status: Current some day smoker Past Alcohol Use History: None Reported Additional Past Alcohol Use History / Comment(s): Pt states he started smoking around 1970 and smokes just a couple cigarettes a day Past Drug Use History: None Reported - Past Family History Father Family Medical History: Musculoskeletal Disorder, Neurologic Disorder Additional Family Medical History / Comment(s): Father had parkinson's dx and at age 84 yrs. Mother Family Medical History: Myocardial Infarction ([place]) Additional Family Medical History / Comment(s): Mother had 3 vessel CABG. She of a massive [place] at the age of 53 yrs. Medications and Allergies Home Medications Medication Instructions Recorded Confirmed Type Clopidogrel [Plavix] 75 mg PO DAILY #30 tab 02/05/16 12/20/18 Rx Isosorbide Mononitrate ER [Imdur] 60 mg PO DAILY 04/25/17 12/20/18 History Losartan [Cozaar] 50 mg PO DAILY #30 tab 04/27/17 12/20/18 Rx Atorvastatin [Lipitor] 40 mg PO HS 02/10/18 12/20/18 History Furosemide [Lasix] 40 mg PO DAILY 02/10/18 12/20/18 History Cyanocobalamin (Vitamin B-12) 1,000 mcg PO DAILY 04/16/18 12/20/18 History [Vitamin B-12] Ipratropium-Albuterol Nebulize 3 ml INHALATION RT-TID PRN 04/16/18 12/20/18 History [Duoneb 0.5 mg-3 mg/3 ml Soln] oxyCODONE-APAP 7.5-325MG [Percocet 1 tab PO QID PRN 04/16/18 12/20/18 History 7.5-325 mg] Aspirin EC [Ecotrin] 325 mg PO DAILY 12/03/18 12/20/18 History Desipramine [Norpramin] 25 mg PO HS 12/03/18 12/20/18 History Metoprolol Succinate [Toprol XL] 25 mg PO DAILY 12/03/18 12/20/18 History Allergies Allergy/AdvReac Type Severity Reaction Status Date / Time No Known Allergies Allergy Verified 12/20/18 13:38 Surgical - Exam Osteopathic Statement: *. No significant issues noted on an osteopathic structural exam other than those noted in the History and Physical/Consult. Vital Signs Temp Pulse Resp BP Pulse Ox 98.2 F 59 L 16 139/93 94 L 12/20/18 13:12 12/20/18 13:12 12/20/18 13:12 12/20/18 13:12 12/20/18 13:12 - General well nourished, no distress - Eyes PERRL - Neck no masses, trachea midline - Respiratory no difficulty with respiration - Abdomen soft, tender to palpation in the right upper quadrant, nondistended, no rebound, no guarding - Psychiatric oriented to time, oriented to person, oriented to place Results - Labs 12/21/18 08:13 12/21/18 08:13 Abnormal Lab Results - Last 24 Hours (Table) 12/20/18 12/20/18 Range/Units 14:26 14:26 Carbon Dioxide 32 H (22-30) mmol/L BUN 21 H (9-20) mg/dL Glucose 101 H (74-99) mg/dL CK-MB (CK-2) 3.0 H (0.0-2.4) ng/mL Diabetes panel 12/20/18 Range/Units 14:26 Sodium 138 (137-145) mmol/L Potassium 4.9 (3.5-5.1) mmol/L Chloride 102 (98-107) mmol/L Carbon Dioxide 32 H (22-30) mmol/L BUN 21 H (9-20) mg/dL Creatinine 0.98 (0.66-1.25) mg/dL Glucose 101 H (74-99) mg/dL Calcium 9.4 (8.4-10.2) mg/dL AST 25 (17-59) U/L ALT 37 (21-72) U/L Alkaline Phosphatase 57 (38-126) U/L Total Protein 6.4 (6.3-8.2) g/dL Albumin 3.7 (3.5-5.0) g/dL Calcium panel 12/20/18 Range/Units 14:26 Calcium 9.4 (8.4-10.2) mg/dL Albumin 3.7 (3.5-5.0) g/dL Pituitary panel 12/20/18 Range/Units 14:26 Sodium 138 (137-145) mmol/L Potassium 4.9 (3.5-5.1) mmol/L Chloride 102 (98-107) mmol/L Carbon Dioxide 32 H (22-30) mmol/L BUN 21 H (9-20) mg/dL Creatinine 0.98 (0.66-1.25) mg/dL Glucose 101 H (74-99) mg/dL Calcium 9.4 (8.4-10.2) mg/dL Adrenal panel 12/20/18 Range/Units 14:26 Sodium 138 (137-145) mmol/L Potassium 4.9 (3.5-5.1) mmol/L Chloride 102 (98-107) mmol/L Carbon Dioxide 32 H (22-30) mmol/L BUN 21 H (9-20) mg/dL Creatinine 0.98 (0.66-1.25) mg/dL Glucose 101 H (74-99) mg/dL Calcium 9.4 (8.4-10.2) mg/dL Total Bilirubin 0.6 (0.2-1.3) mg/dL AST 25 (17-59) U/L ALT 37 (21-72) U/L Alkaline Phosphatase 57 (38-126) U/L Total Protein 6.4 (6.3-8.2) g/dL Albumin 3.7 (3.5-5.0) g/dL - Imaging US - abdomen: report reviewed, image reviewed (GB wall thickening, cholelithiasis) Assessment and Plan (1) Acute cholecystitis Narrative/Plan: 63yo M with acute cholecystitis - On initial exam of the patient, the patient denied any anticoagulation intake. However, the patient is taking Plavix and full dose aspirin. Secondary to this, we will hold off on any surgical intervention for 5-7 days. Due to the possibility of acute cholecystitis, without leukocytosis, we will continue anti biotics for the patient. We will plan for an elective operation after Plavix and aspirin have been held as long as that is cleared by cardiology. I did discuss this with the admitting team. They are agreeable to this plan. Current Visit: Yes Status: Acute Code(s): K81.0 - ACUTE CHOLECYSTITIS SNOMED Code(s): 12377833
--- NOTE | 2018-12-21 11:50 | P.CRDCN ---
History of Present Illness History of present illness: This is a pleasant 63-year-old male past medical history significant for coronary artery disease s/p stent plaement, non-compliance, permanent pacemaker implantation 2012, hypertension, dyslipidemia and morbid obesity. He used to follow in the office with Dr. Gutierrez, he has not followed in the office since 2015. He has a home visiting physician who saw him and recommended an ult rasound of his gallbladder secondary to abdominal pain and nausea. U/S revealed acute cholecystitis and he was send to ED for evaluation. He is seen and examined laying flat in bed in no acute distress. He denies chest pain, shortness of breath, dizziness or palpitations. EKG reveals sinus mechanism with nonspecific ST abnormality. No acute changes. Chest x-ray Laboratory data reviewed, Current cardiac medications include losartan 50 mg daily, Toprol 25 mg daily, Plavix 75 mg daily, Lasix 40 mg daily, Imdur 60 mg daily and aspirin 81 mg daily. Recent echocardiogram performed September 2018 reveals preserved LV systolic function with ejection fraction 50-55%. Most recent cardiac catheterization in 2012 revealed patent stents of the LAD with diffuse disease distally, a lesion 60-70% ostium of the diagonal branch that is chronic and unchanged from previous study, a distal lesion of the first OM branch of 50-60%, circumflex was normal with no evidence of obstructive disease in the RCA has multiple plaques in the proximal and midportion approximately 50-60% is unchanged from previous study. At the time of my exam: CONSTITUTIONAL: Denies fever. Denies chills. EYES: Denies blurred vision. Denies vision changes. Denies eye pain. EARS, NOSE, MOUTH & THROAT: Denies headache. Denies sore throat. Denies ear pain. CARDIOVASCULAR: Denies chest pain. Denies shortness of breath. Denies orthopnea. Denies PND. Denies palpitations. RESPIRATORY: Denies cough. GASTROINTESTINAL: Denies abdominal pain. Denies diarrhea. Denies constipation. Denies nausea. Denies vomiting. MUSCULOSKELETAL: Denies myalgias. INTEGUMENTARY: Denies pruitis. Denies rash. NEUROLOGIC: Denies numbness. Denies tingling. Denies weakness. PSYCHIATRIC: Denies anxiety. Denies depression. ENDOCRINE: Denies fatigue. Denies weight change. Denies polydipsia. Denies polyurina. GENITOURINARY: Denies burning, hematuria or urgency with micturation. HEMATOLOGIC: Denies history of anemia. Denies bleeding. GENERAL: This is a 63-year-old male in no apparent distress at the time of my examination. HEENT: Head is atraumatic, normocephalic. Pupils are equal, round. Sclerae anicteric. Conjunctivae are clear. Mucous membranes of the mouth are moist. Neck is supple. There is no jugular venous distention. No carotid bruit is heard. LUNGS: Clear to auscultation no wheezes, rales or rhonchi. No chest wall tenderness is noted on palpation or with deep breathing. Diminished bilaterally. HEART: Regular rate and rhythm without murmurs, rubs or gallops. S1 and S2 heard. ABDOMEN: Soft, nontender. Bowel sounds are heard. No organomegaly noted. EXTREMITIES: No evidence of peripheral edema and no calf tenderness noted. VASCULAR: Radial and dorsalis pedis pulses palpated, no evidence of clubbing. NEUROLOGIC: Patient is awake, alert and oriented x3. ASSESSMENT Acute cholecystitis History of coronary artery disease Permanent pacemaker implantation Hypertension Dyslipidemia History of noncompliance PLAN Clinically he is stable from a cardiac perspective. He is euvolemic with no symptoms of angina or heart failure. There are no absolute contraindications to surgery, however he is high risk due to his co-morbid conditions. Recommend cautious fluid administration and optimal blood pressure control. Continue aspirin and discontinue Plavix pending surgical evaluation. Interrogate [employer] pacemaker. Discussed the importance of close follow up with Dr. Gutierrez. Thank you kindly for this consultation. Nurse Practitioner note has been reviewed, I agree with a documented findings and plan of care. Patient was seen and examined. Past Medical History Past Medical History: Coronary Artery Disease (CAD), Chest Pain / Angina, COPD, CVA/TIA, Hyperlipidemia, Hypertension, Myocardial Infarction (OR), Osteoarthritis (OA), Respiratory Disorder, Sleep Apnea/CPAP/BIPAP Additional Past Medical History / Comment(s): COPD, obesity, obesity hy poventilation syndrome, obstructive sleep apnea, suspected CHF and cor pulmonale, coronary artery disease with previous stenting of the LAD, previous history of AICD placement, osteoarthritis, CVA in 2004, chronic back pain secondary to degenerative disc disease and spinal canal stenosis, history of vertebral fracture L2 through L5, chronic lower extremity edema, diverticular disease, hyperlipidemia, hypertension, previous history of myocardial infarction,, L knee fx in past and torn R rotator cuff. cellulitis. Last Myocardial Infarction Date:: 2011 History of Any Multi-Drug Resistant Organisms: None Reported Past Surgical History: AICD, Heart Catheterization With Stent, Hernia Repair Additional Past Surgical History / Comment(s): PTCA with stent (4 total), 04/05/13 AICD [employer], 1990's umbilical hernia repair, colonoscopy, circumcism, R eye surgery for strabismus. Past Anesthesia/Blood Transfusion Reactions: No Reported Reaction Date of Last Stent Placement:: 2012 Type of Cardiac Device: AICD Device Placement Date:: 04/05/13 Past Psychological History: No Psychological Hx Reported Additional Psychological History / Comment(s): Pt is living in a home with roomates. He can drive. He states he uses a cane or walker at home. Smoking Status: Current some day smoker Past Alcohol Use History: None Reported Additional Past Alcohol Use History / Comment(s): Pt states he started smoking around 1970 and smokes just a couple cigarettes a day Past Drug Use History: None Reported - Past Family History Father Family Medical History: Musculoskeletal Disorder, Neurologic Disorder Additional Family Medical History / Comment(s): Father had parkinson's dx and at age 84 yrs. Mother Family Medical History: Myocardial Infarction (OR) Additional Family Medical History / Comment(s): Mother had 3 vessel CABG. She of a massive OR at the age of 53 yrs. Medications and Allergies Home Medications Medication Instructions Recorded Confirmed Type Clopidogrel [Plavix] 75 mg PO DAILY #30 tab 02/05/16 12/20/18 Rx Isosorbide Mononitrate ER [Imdur] 60 mg PO DAILY 04/25/17 12/20/18 History Losartan [Cozaar] 50 mg PO DAILY #30 tab 04/27/17 12/20/18 Rx Atorvastatin [Lipitor] 40 mg PO HS 02/10/18 12/20/18 History Furosemide [Lasix] 40 mg PO DAILY 02/10/18 12/20/18 History Cyanocobalamin (Vitamin B-12) 1,000 mcg PO DAILY 04/16/18 12/20/18 History [Vitamin B-12] Ipratropium-Albuterol Nebulize 3 ml INHALATION RT-TID PRN 04/16/18 12/20/18 History [Duoneb 0.5 mg-3 mg/3 ml Soln] oxyCODONE-APAP 7.5-325MG [Percocet 1 tab PO QID PRN 04/16/18 12/20/18 History 7.5-325 mg] Aspirin EC [Ecotrin] 325 mg PO DAILY 12/03/18 12/20/18 History Desipramine [Norpramin] 25 mg PO HS 12/03/18 12/20/18 History Metoprolol Succinate [Toprol XL] 25 mg PO DAILY 12/03/18 12/20/18 History Allergies Allergy/AdvReac Type Severity Reaction Status Date / Time No Known Allergies Allergy Verified 12/20/18 13:38 Physical Exam Vitals: Vital Signs Temp Pulse Pulse Resp BP BP Pulse Ox 12/21/18 08:21 97.5 F L 67 16 150/87 91 L 12/21/18 07:50 60 16 12/21/18 04:45 154/94 12/21/18 00:06 60 16 177/80 92 L 12/20/18 18:55 97.5 F L 61 16 172/91 95 12/20/18 17:29 97.9 F 64 18 121/81 95 12/20/18 14:30 62 18 128/82 94 L 12/20/18 13:12 98.2 F 59 L 16 139/93 94 L Intake and Output 12/20/18 12/21/18 12/21/18 22:59 06:59 14:59 Output Total 475 Balance -475 Output: Urine 475 Other: # Voids 1 Results 12/21/18 08:13 12/21/18 08:13 Cardiac Enzymes 12/20/18 12/20/18 12/20/18 Range/Units 14:26 14:26 18:47 AST 25 (17-59) U/L CK-MB (CK-2) 3.0 H (0.0-2.4) ng/mL Troponin I <0.012 <0.012 (0.000-0.034) ng/mL 12/21/18 Range/Units 08:13 AST 20 (17-59) U/L CK-MB (CK-2) (0.0-2.4) ng/mL Troponin I (0.000-0.034) ng/mL CBC 12/20/18 12/21/18 Range/Units 14:26 08:13 WBC 8.6 8.0 (3.8-10.6) k/uL RBC 5.41 5.20 (4.30-5.90) m/uL Hgb 15.8 15.1 (13.0-17.5) gm/dL Hct 49.2 47.5 (39.0-53.0) % Plt Count 179 144 L (150-450) k/uL Comprehensive Metabolic Panel 12/20/18 12/21/18 Range/Units 14:26 08:13 Sodium 138 137 (137-145) mmol/L Potassium 4.9 4.5 (3.5-5.1) mmol/L Chloride 102 100 (98-107) mmol/L Carbon Dioxide 32 H 34 H (22-30) mmol/L BUN 21 H 20 (9-20) mg/dL Creatinine 0.98 0.94 (0.66-1.25) mg/dL Glucose 101 H 83 (74-99) mg/dL Calcium 9.4 8.8 (8.4-10.2) mg/dL AST 25 20 (17-59) U/L ALT 37 30 (21-72) U/L Alkaline Phosphatase 57 55 (38-126) U/L Total Protein 6.4 5.5 L (6.3-8.2) g/dL Albumin 3.7 3.1 L (3.5-5.0) g/dL Current Medications Generic Name Dose Route Start Last Admin Trade Name Freq PRN Reason Stop Dose Admin Acetaminophen 650 mg 12/20/18 17:09 Tylenol Tab PO Q6HR PRN Mild Pain or Fever > 100.5 Aspirin 81 mg 12/21/18 09:00 12/21/18 09:12 Aspirin PO Not Given DAILY KARINA Atorvastatin Calcium 40 mg 12/20/18 21:00 12/20/18 21:54 Lipitor PO 40 mg HS KARINA Administration Bisacodyl 5 mg 12/20/18 17:09 Dulcolax PO DAILY PRN Constipation Desipramine HCl 25 mg 12/20/18 21:00 12/20/18 21:55 Norpramin PO 25 mg HS KARINA Administration Famotidine 20 mg 12/20/18 21:00 12/21/18 09:12 Pepcid PO Not Given BID KARINA Hydromorphone HCl 0.5 mg 12/20/18 19:13 12/21/18 10:46 Dilaudid IVP 0.5 mg Q3HR PRN Administration Pain Piperacillin Sod/Tazobactam 100 mls @ 25 mls/hr 12/21/18 00:00 12/21/18 07:38 Sod 3.375 gm/ Sodium Chloride IVPB 25 mls/hr Q8HR KARINA Administration Sodium Chloride 1,000 mls @ 50 mls/hr 12/20/18 17:15 12/21/18 01:08 Saline 0.9% IV 50 mls/hr .Q20H KARINA Administration Isosorbide Mononitrate 60 mg 12/21/18 09:00 12/21/18 09:12 Imdur PO Not Given DAILY KARINA Metoprolol Succinate 25 mg 12/21/18 09:00 12/21/18 09:09 Toprol Xl PO 25 mg DAILY KARINA Administration Naloxone HCl 0.2 mg 12/20/18 17:09 Narcan IV Q2M PRN Opioid Reversal Ondansetron HCl 4 mg 12/20/18 17:09 Zofran IVP Q8HR PRN Nausea And Vomiting Oxycodone/Acetaminophen 1 each 12/20/18 17:09 Percocet 5-325 PO Q4HR PRN SEVERE Pain Tramadol HCl 50 mg 12/20/18 17:09 Ultram PO Q6H PRN Moderate Pain Intake and Output 12/20/18 12/21/18 12/21/18 22:59 06:59 14:59 Output Total 475 Balance -475 Output: Urine 475 Other: # Voids 1 12/21/18 08:13 12/21/18 08:13
--- NOTE | 2018-12-21 17:05 | P.DS ---
Providers Date of admission: 12/20/18 17:26 Expected date of discharge: 12/21/18 Attending physician: Payton Barfield, Consults: 12/20/18 17:09 Consult Physician Stat Consulting Provider: Devi Bean Consult Reason/Comments: Acute cholecystitis Do you want consulting provider notified?: Already Contacted 12/20/18 18:18 Consult Physician Routine Consulting Provider: Zulema Reed Consult Reason/Comments: cad Do you want consulting provider notified?: Yes Primary care physician: [place] Min - Discharge Diagnosis(es) (1) Acute cholecystitis Status: Acute (2) Coronary artery disease Status: Acute (3) Essential hypertension Status: Acute (4) Pacemaker Status: Acute (5) Hyperlipidemia Status: Acute Hospital Course: The patient is a 63-year-old obese male the past medical history of congestive heart failure with known type, CAD status post AICD placement who was admitted for acute cholecystitis after presented with right upper quadrant pain. The patient was started on empiric IV antibiotics with Zosyn and given IV fluids along with supportive therapy with morphine and Zofran for pain and nausea and vomiting respectively. Gen. surgery was consulted and the patient was seen by Dr. Bean, however as the patient was on full dose to wall antiplatelet therapy with Plavix and aspirin decision was made to hold off any surgical intervention for 5-7 days with plans for follow-up in clinic for possible rescheduling a lap cholecystectomy and drain the meantime the patient is to be continued on oral antibiotics with Augmentin. The patient was seen by cardiology for preop clearance, the patient's pacemaker was interrogated and the patient was instructed to follow-up with Dr. Gutierrez on discharge. The patient subsequently discharged home in stable condition and told to follow-up with his consultants. Discharge process took approximately 35 minutes Focused exam Abdomen positive Bryant sign, soft nondistended, negative organomegaly, normoactive bowel sounds all 4 quadrants Patient Condition at Discharge: Stable Plan - Discharge Summary New Discharge Prescriptions: New Amoxicillin/Potassium Clav [Augmentin 875-125 Tablet] 1 tab PO Q12HR #14 tab Continue Isosorbide Mononitrate ER [Imdur] 60 mg PO DAILY Losartan [Cozaar] 50 mg PO DAILY #30 tab Furosemide [Lasix] 40 mg PO DAILY Atorvastatin [Lipitor] 40 mg PO HS Ipratropium-Albuterol Nebulize [Duoneb 0.5 mg-3 mg/3 ml Soln] 3 ml INHALATION RT-TID PRN PRN Reason: Shortness Of Breath Cyanocobalamin (Vitamin B-12) [Vitamin B-12] 1,000 mcg PO DAILY oxyCODONE-APAP 7.5-325MG [Percocet 7.5-325 mg] 1 tab PO QID PRN PRN Reason: Pain Metoprolol Succinate [Toprol XL] 25 mg PO DAILY Desipramine [Norpramin] 25 mg PO HS Discontinued Clopidogrel [Plavix] 75 mg PO DAILY #30 tab Aspirin EC [Ecotrin] 325 mg PO DAILY Discharge Medication List Isosorbide Mononitrate ER [Imdur] 60 mg PO DAILY 04/25/17 [History] Losartan [Cozaar] 50 mg PO DAILY #30 tab 04/27/17 [Rx] Atorvastatin [Lipitor] 40 mg PO HS 02/10/18 [History] Furosemide [Lasix] 40 mg PO DAILY 02/10/18 [History] Cyanocobalamin (Vitamin B-12) [Vitamin B-12] 1,000 mcg PO DAILY 04/16/18 [History] Ipratropium-Albuterol Nebulize [Duoneb 0.5 mg-3 mg/3 ml Soln] 3 ml INHALATION RT-TID PRN 04/16/18 [History] oxyCODONE-APAP 7.5-325MG [Percocet 7.5-325 mg] 1 tab PO QID PRN 04/16/18 [History] Desipramine [Norpramin] 25 mg PO HS 12/03/18 [History] Metoprolol Succinate [Toprol XL] 25 mg PO DAILY 12/03/18 [History] Amoxicillin/Potassium Clav [Augmentin 875-125 Tablet] 1 tab PO Q12HR #14 tab 12/21/18 [Rx] Follow up Appointment(s)/Referral(s): Boston Min MD [Primary Care Provider] - 1-2 days (Plan is to hopefully have Dr out 12-22-18 if not Tuesday12-25-18; they will be in contact) Raquel Gutierrez MD [STAFF PHYSICIAN] - 01/03/19 10:00 am
[2019-01-05] MEDS ORDERED: IPRATROPIUM-ALBUTEROL 3 ML NEB INHALATION SCH (16:10)
[2019-01-06] MEDS ORDERED: CYANOCOBALAMIN 500 MCG TAB PO SCH (09:00)
== END 2018-12-21 15:13 | disposition home or self-care (01) ==
LOC: EC 13:08 → 4SSUR 17:26
PROVIDERS: ADMIT Internal Medicine; ATTEND Internal Medicine
DX: K80.00 Calculus of gallbladder with acute cholecystitis without obstruction (principal); E66.2 Morbid (severe) obesity with alveolar hypoventilation; J44.9 Chronic obstructive pulmonary disease, unspecified; I25.10 Atherosclerotic heart disease of native coronary artery without angina pectoris; I11.0 Hypertensive heart disease with heart failure; I50.9 Heart failure, unspecified; G89.29 Other chronic pain; M54.9 Dorsalgia, unspecified; E78.5 Hyperlipidemia, unspecified; M19.90 Unspecified osteoarthritis, unspecified site; Z68.42 Body mass index [BMI] 45.0-49.9, adult; K57.90 Diverticulosis of intestine, part unspecified, without perforation or abscess without bleeding; F17.210 Nicotine dependence, cigarettes, uncomplicated; Z91.19 Patient's noncompliance with other medical treatment and regimen; Z99.89 Dependence on other enabling machines and devices; Z79.02 Long term (current) use of antithrombotics/antiplatelets; Z79.82 Long term (current) use of aspirin; Z79.899 Other long term (current) drug therapy; Z79.891 Long term (current) use of opiate analgesic; I25.2 Old myocardial infarction; Z86.73 Personal history of transient ischemic attack (TIA), and cerebral infarction without residual deficits; Z95.810 Presence of automatic (implantable) cardiac defibrillator; Z87.2 Personal history of diseases of the skin and subcutaneous tissue; Z87.81 Personal history of (healed) traumatic fracture; Z95.5 Presence of coronary angioplasty implant and graft; Z82.0 Family history of epilepsy and other diseases of the nervous system; Z82.49 Family history of ischemic heart disease and other diseases of the circulatory system; Z82.69 Family history of other diseases of the musculoskeletal system and connective tissue
CPT/HCPCS: 96376 ×3; 96366 ×2; 96375 ×2; 96361; 96365; 99285; 36415; 93005; 80053 ×2; 82150; 82550; 82553; 83605; 83690; 84484; 85025 ×2; 81003; 87040; 76705; G0378 ×2; J2543 ×2; J2270; J2405; J1885; J1170 ×2

== ENCOUNTER 2019-01-04 13:03 | Inpatient (IN) | payer MEDICARE ==
[~2019-01-04 13:03] MED LIST: HEPARIN SODIUM,PORCINE 5,000 UNIT/ML 1 ML VIAL SQ ONE; ceFAZolin 3 GM in SODIUM CHLORIDE 0.9% 100 ML IVPB ONE
[2019-01-04] MEDS ORDERED: LACTATED RINGERS 1,000 ML IV ONE ×2 (13:45→16:42)
[2019-01-04] MEDS ORDERED: LIDOCAINE 1% 20 ML VIAL (10MG/ML) FOR IV START SQ ONE (13:46)
[2019-01-04] MEDS ORDERED: ONDANSETRON 4 MG/2 ML VIAL IVP ONE (13:57)
[2019-01-04] MEDS ORDERED: DEXAMETHASONE SOD PHOSPHATE 10 MG/ML 1 ML VIAL IV ONE (13:57)
[2019-01-04] MEDS ORDERED: fentaNYL (PF) 50 MCG/ML 2 ML AMP IV ONE (14:03)
[2019-01-04] MEDS ORDERED: SUCCINYLCHOLINE CHLORIDE 100 MG/5 ML SYR IV ONE (15:33)
[2019-01-04] MEDS ORDERED: LIDOCAINE 1% INJ 10MG/ML (20 ML MDV) ONE (15:33)
[2019-01-04] MEDS ORDERED: fentaNYL (PF) 50 MCG/ML 2 ML AMP ONE (15:33)
[2019-01-04] MEDS ORDERED: NEOSTIGMINE 1 MG/ML 10 ML VIAL ONE (15:33)
[2019-01-04] MEDS ORDERED: ROCURONIUM BROMIDE 10 MG/ML 10 ML VIAL IV ONE (15:33)
[2019-01-04] MEDS ORDERED: HYDROmorphone (PF) 1 MG/ML ONE (15:33)
[2019-01-04] MEDS ORDERED: ePHEDrine SULFATE/0.9% NACL/PF 50 MG/5 ML SYRINGE IV ONE (15:33)
[2019-01-04] MEDS ORDERED: MIDAZOLAM 2 MG/2 ML VIAL ONE (15:33)
[2019-01-04] MEDS ORDERED: GLYCOPYRROLATE 0.2 MG/ML 2 ML VIAL ONE (15:33)
[2019-01-04] MEDS ORDERED: PHENYLEPHRINE-0.9% NACL SYG 1 MG/10 ML SYRINGE ONE ×2 (15:33)
[2019-01-04] MEDS ORDERED: PROPOFOL 10 MG/ML 20 ML VIAL IV ONE (15:33)
[2019-01-04] MEDS ORDERED: BUPIVACAIN-EPI 0.25%-1:200,000 30 ML VIAL SQ ONE (16:14)
[2019-01-04] MEDS ORDERED: NALOXONE 0.4 MG/ML 1 ML VIAL IV PRN (17:31)
[2019-01-04] MEDS ORDERED: METOCLOPRAMIDE 5 MG/ML 2 ML VIAL IVP PRN (17:31)
[2019-01-04] MEDS ORDERED: ONDANSETRON 4 MG/2 ML VIAL IVP PRN (17:31)
--- NOTE | 2019-01-04 17:42 | P.OP ---
Date of Procedure: 01/04/19 Preoperative Diagnosis: Cholecystitis, cholelithiasis Postoperative Diagnosis: Cholecystitis, cholelithiasis Procedure(s) Performed: Laparoscopic cholecystectomy Anesthesia: ZAY Surgeon: Devi Bean Pathology: other (Gallbladder and contents) Condition: stable Disposition: floor Indications for Procedure: 63-year-old male initially presented to the emergency department secondary to right upper quadrant pain. On workup he was found to have cholecystitis and was initially planned to have surgery. However, with further history taking, the patient did admit to taking Plavix and aspirin. He was kept on antibiotics and discharged from the hospital with plan to hold anticoagulation and plan for outpatient cholecystectomy. He presents today for cholecystectomy. He was explained the risks, benefits and alternatives to the procedure and did provide consent prior to attending the operating suite. Operative Findings: Extremely friable gallbladder Dense peritoneal and omental attachments Cholelithiasis Description of Procedure: The patient was brought into the operating suite and placed in supine position on the operating table. Sedation was provided by anesthesia and the patient underwent endotracheal intubation. The patient was then prepped and draped in regular sterile fashion. The abdomen was entered under direct visualization using a Visiport trocar just right of the umbilicus. Pneumoperitoneum was then achieved. The patient was then placed in appropriate position. The gallbladder was then clearly visualized and noted to have multiple dense omental and peritoneal adhesions. Dissection was carried to dissect the gallbladder from these adhesions. There was some notable bleeding during this time. Hemostasis was maintained with cautery. The gallbladder was then retracted in appropriate position to obtain the critical view. On grasping the gallbladder, the gallbladder was notably easily and extremely friable. The gallbladder did tear with even mild retraction. Careful and meticulous dissection was performed to isolate the cystic duct and the cystic artery. The cystic duct was visualized and skeletonized. 2 clips were placed proximally one was placed distally and the cystic duct was ligated. The cystic artery was also skeletonized. 2 clips were placed proximally one was placed distally and the cystic artery was ligated. Cautery was then used to dissect the gallbladder from the gallbladder fossa on the liver bed. The gallbladder was then placed in an Endo Catch bag and removed from the abdomen. On examination of the liver bed, the patient was notably having continuous bruising. Cautery was used to attain hemostasis. Snow hemostatic agent was also used. Pressure was applied and held. Hemostasis was noted to be maintained. Irrigation was used in the right upper quadrant and suctioned. PEREZ drain was placed due to the friability of the tissue. The patient was awakened in the operating suite and taken to postanesthesia care unit in stable condition.
[2019-01-04] MEDS ORDERED: HYDROmorphone 1 MG/ML 1 ML SYRINGE IVP ONE ×4 (17:50→18:15)
[2019-01-04] MEDS ORDERED: SODIUM CHLORIDE 0.9% 1,000 ML IV ONE (18:07)
[2019-01-04] MEDS: HYDROmorphone 1 MG/ML 1 ML SYRINGE IVP PRN ×2 (19:35→23:16)
[2019-01-04] MEDS: ATORVASTATIN 40 MG TAB PO SCH (20:35)
[2019-01-04] MEDS: FAMOTIDINE 20 MG TAB PO SCH (20:35)
[2019-01-04] MEDS ORDERED: KETOROLAC 30 MG/ML 1 ML VIAL IM STA (20:52)
[2019-01-04] MEDS ORDERED: HYDROmorphone 1 MG/ML 1 ML SYRINGE IVP STA (20:54)
[2019-01-04] MEDS ORDERED: KETOROLAC 30 MG/ML 1 ML VIAL IVP STA (21:07)
[2019-01-04 22:42] VITALS: BMI 49.6
[2019-01-04] MEDS: HEPARIN SODIUM,PORCINE 5,000 UNIT/ML 1 ML VIAL SQ SCH (23:16)
[2019-01-04] MEDS: LACTATED RINGERS 1,000 ML IV SCH (23:21)
[2019-01-05] MEDS: HYDROmorphone 1 MG/ML 1 ML SYRINGE IVP PRN ×5 (02:04→20:05)
[2019-01-05] MEDS: LACTATED RINGERS 1,000 ML IV SCH ×3 (03:11→20:35)
[2019-01-05] MEDS: HYDROcodone/APAP 5-325MG 1 EACH TAB PO PRN ×2 (03:19→08:07)
[2019-01-05] MEDS: HEPARIN SODIUM,PORCINE 5,000 UNIT/ML 1 ML VIAL SQ SCH ×3 (08:07→23:24)
[2019-01-05] MEDS: METOPROLOL SUCCINATE (ER) 25 MG TAB.ER.24H PO SCH (08:08)
[2019-01-05] MEDS: LOSARTAN 50 MG TAB PO SCH (08:09)
[2019-01-05] MEDS: FAMOTIDINE 20 MG TAB PO SCH ×2 (08:09→20:05)
[2019-01-05] MEDS: ISOSORBIDE MONONITRATE ER 60 MG TAB.ER.24H PO SCH (08:09)
[2019-01-05] MEDS ORDERED: FUROSEMIDE 40 MG TAB PO SCH (09:00)
[2019-01-05 10:04] LABS: Basophils % (A) 0 %; Eosinophils % (A) 0 %; HCT 47.3 % (39.0-53.0); HGB 15.1 gm/dL (13.0-17.5); Lymphocytes # (A) 1.4 k/uL (1.0-4.8); Lymphocytes % (A) 12 %; MCH 29.5 pg (25.0-35.0); MCHC 31.9 g/dL (31.0-37.0); MCV 92.4 fL (80.0-100.0); Mean Platelet Volume 7.7; Monocytes # (A) 0.6 k/uL (0-1.0); Monocytes % (A) 5 %; Neutrophils # (A) 9.1 k/uL (1.3-7.7); Neutrophils % (A) 81 %; Platelet Count 174 k/uL (150-450); RBC 5.11 m/uL (4.30-5.90); RDW 15.2 % (11.5-15.5); WBC 11.3 k/uL (3.8-10.6)
[2019-01-05 10:15] LABS: ALT 81 U/L (21-72); AST 52 U/L (17-59); African American GFR (CKD) >90 (>60 ml/min/1.73 sqM); Albumin 3.5 g/dL (3.5-5.0); Alkaline Phosphatase 62 U/L (38-126); Anion Gap 7 mmol/L; Blood Urea Nitrogen 16 mg/dL (9-20); Carbon Dioxide 29 mmol/L (22-30); Chloride 103 mmol/L (98-107); Glucose 106 mg/dL (74-99); Non-African American GFR(CKD) >90 (>60 ml/min/1.73 sqM); Potassium 4.8 mmol/L (3.5-5.1); Sodium 139 mmol/L (137-145); Total Bilirubin 0.7 mg/dL (0.2-1.3); Total Protein 6.2 g/dL (6.3-8.2)
--- NOTE | 2019-01-05 10:57 | P.PN ---
Subjective Progress Note Date: 01/05/19 Patient seen and examined at bedside. Did have acute pain episodes postoperatively last night. These were addressed. He states he feels much better this morning. He states he is hungry. Denies nausea vomiting. PEREZ drain in place with approximately 300 mL of sanguinous fluid overnight. Objective - Vital Signs Vital signs: Vital Signs Temp 97.8 F 01/05/19 07:51 Pulse 72 01/05/19 08:00 Resp 15 01/05/19 08:00 BP 143/89 01/05/19 07:51 Pulse Ox 91 L 01/05/19 07:51 Intake & Output 01/04/19 01/05/19 01/05/19 18:59 06:59 18:59 Intake Total 2100 1000 Output Total 445 340 410 Balance 1655 660 -410 Intake: IV 2100 Intake, IV Titration 1000 Amount Lactated Ringers 1,000 ml 1000 @ 125 mls/hr IV .Q8H KARINA Rx#:[id number] Output: Drainage 340 60 Abdomen 340 60 Urine 350 Estimated Blood Loss 445 Other: Voiding Method Urinal Urinal # Voids 1 - Constitutional General appearance: Present: cooperative, no acute distress - EENT Eyes: Present: PERRLA - Respiratory Details: No difficulty with respiration - Gastrointestinal Gastrointestinal Comment(s): Soft, appropriate tenderness, nondistended, no rebound, no guarding, PEREZ drain in place - Musculoskeletal Musculoskeletal: Present: generalized weakness - Psychiatric Psychiatric: Present: A&O x's 3, appropriate affect - Labs CBC & Chem 7: 01/05/19 09:39 01/05/19 09:39 Labs: Abnormal Lab Results - Last 24 Hours (Table) 01/05/19 01/05/19 Range/Units 09:39 09:39 WBC 11.3 H (3.8-10.6) k/uL Neutrophils # 9.1 H (1.3-7.7) k/uL Glucose 106 H (74-99) mg/dL ALT 81 H (21-72) U/L Total Protein 6.2 L (6.3-8.2) g/dL Assessment and Plan (1) Cholecystitis Narrative/Plan: Postoperative day #1, laparoscopic cholecystectomy - Continue PEREZ drain, as gallbladder was friable along with generalized oozing from surgical field - Advance to clear liquid diet - Pain medication readjusted, we'll continue patient's home medication of Percocet along with Dilaudid as necessary for breakthrough pain - Continue to increase activity - Continue to follow hemoglobin - Medical and cardiology recommendations appreciated Current Visit: Yes Status: Acute Code(s): K81.9 - CHOLECYSTITIS, UNSPECIFIED SNOMED Code(s): 71024100
[2019-01-05] MEDS: oxyCODONE-APAP 10-325MG 1 EACH TAB PO PRN ×2 (13:31→22:02)
[2019-01-05] MEDS ORDERED: FUROSEMIDE 10 MG/ML 4 ML VIAL IV STA (13:36)
--- NOTE | 2019-01-05 13:41 | P.PN ---
Subjective This is Kay Montanez PA-C dictating a consult on this patient The patient was interviewed and examined by me as well as by Dr. Avery Case discussed with Dr. Avery and he agrees with the plan of care IMPRESSION / ASSESSMENT: Cholecystitis status post cholecystectomy CAD status post stent placement, denies chest pain currently Status post device implant Hypertension Dyslipidemia COPD Current smoker PLAN: [facility]btain [facility] Twelve-lead EKG 2-D echo and Doppler study to assess cardiac structure and function Device interrogation 1 dose of IV Lasix 40 mg, increase oral Lasix to 60 mg daily Smoking cessation advised Maximize anti-hypertensive therapy and monitor BMP HPI Patient is a 63-year-old male with past medical history of CAD status post stent placement, hypertension, dyslipidemia, and COPD who presented for cholecystectomy. Patient is a somewhat poor historian and unable to give us the details of his cardiac medical history. Patient seen and examined resting in bed. Complaining of abdominal pain. Denies any chest pain. He is short of breath at baseline due to his COPD but denies any worsening shortness of breath. ROS: No fevers, chills or rigors, Positive for cough Positive for abdominal pain no hematuria, dysuria, no musculoskeletal complaints, no strokes or seizures, no skin lesions. EXAMINATION: Temperature 97.8F, pulse 72, respirations 15, but pressure 143/89, oxygen saturation 91% on room air Patient seen and examined lying in bed, appears in no acute distress Breath sounds diminished with wheezing bilaterally, few scattered crackles at the bases Heart is regular, normal S1-S2, no murmurs appreciated Trace lower extremity edema bilaterally REVIEW OF LABS, ECG & MEDICAL DATA WBC 11.3 hemoglobin 15.1, potassium 4.8, BUN 16,, creatinine 0.75, We do not have an EKG from this admission Objective - Vital Signs Vital signs: Vital Signs Temp 97.8 F 01/05/19 07:51 Pulse 72 01/05/19 08:00 Resp 15 01/05/19 08:00 BP 143/89 01/05/19 07:51 Pulse Ox 91 L 01/05/19 07:51 Intake & Output 01/04/19 01/05/19 01/05/19 18:59 06:59 18:59 Intake Total 2100 1000 Output Total 445 340 410 Balance 1655 660 -410 Intake: IV 2100 Intake, IV Titration 1000 Amount Lactated Ringers 1,000 ml 1000 @ 125 mls/hr IV .Q8H [facility] Rx#:[id number] Output: Drainage 340 60 Abdomen 340 60 Urine 350 Estimated Blood Loss 445 Other: Voiding Method Urinal Urinal # Voids 1 - Labs CBC & Chem 7: 01/05/19 09:39 01/05/19 09:39 Labs: Abnormal Lab Results - Last 24 Hours (Table) 01/05/19 01/05/19 Range/Units 09:39 09:39 WBC 11.3 H (3.8-10.6) k/uL Neutrophils # 9.1 H (1.3-7.7) k/uL Glucose 106 H (74-99) mg/dL ALT 81 H (21-72) U/L Total Protein 6.2 L (6.3-8.2) g/dL
--- NOTE | 2019-01-05 16:12 | P.CONS ---
History of Present Illness - Reason for Consult Consult date: 01/05/19 Medical management requested by Dr. Bean Requesting physician: Devi Bean - Chief Complaint Abdominal pain - History of Present Illness Consultation: This is a pleasant 62 patient of visiting physician Dr. Min. Chronic stable medical conditions include coronary artery disease with stent, hypertension, hyperlipidemia, obstructive sleep apnea, diverticulosis, arthritis, chronic lumbar pain L2 to L5, chronic fractures and AICD. 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 Patient was recently diagnosed with cholecystitis. Because he was on aspirin and Plavix he was treated with antibiotics and sent home to come back electively for the surgery. Patient was recently discharged from hospital on December 21 with antibiotics and had a scheduled elective cystectomy done by Dr. Bean on January 04. I did speak to Dr. Bean, patient's gallbladder and the bed was rather friable and it was quite a bit of blood. Patient has a drain in place. Pain is present. No nausea vomiting. She is on ice chips this morning. No chest pain. Breathing stable. This morning patient has not positive flatus or bowel movement. Does sit at the edge of the bed. Review of systems: GEN.: Tired EYES: None HEENT: None NECK: None RESPIRATORY: Baseline some shortness of breath CARDIOVASCULAR: None GASTROINTESTINAL: On as above GENITOURINARY: None MUSCULOSKELETAL: Pain in the joints LYMPHATICS: None HEMATOLOGICAL: None PSYCHIATRY: None NEUROLOGICAL: None Past medical history: COPD in an ex-smoker, CHF from diastolic 50-55%, obesity hypoventilation syndr ome, coronary artery disease with stent, hyperlipidemia, hypertension, AICD, chronic low back pain L2 to L5 as chronic fractures, morbid obesity, home oxygen 2 L, and right rotator cuff Social history: Lives alone and has a caregiver also as a roommate. Was smoking occasionally, does couple of cigarettes a day. No alcohol. Family history: Father had Parkinson's disease Physical examination: VITAL SIGNS: 97 x 8, 72, 15, 143/89, 9 1% on room air GENERAL: 46.8 BMI, propped up in bed, tired appearing. EYES: Pupils equal. Conjunctiva normal. HEENT: External appearance of nose and ears normal, oral cavity grossly normal. NECK: JVD unable to assess; masses not palpable. HEART: Heart sounds muffled, minimal edema. LUNGS: Respiratory rate increased, decreased breath sound. ABDOMEN: Soft, tender, bowel sounds sluggish, right upper quadrant PEREZ drain liver spleen not palpable, no masses palpable. PSYCH: Alert and oriented x3; mood and affect normal. NEUROLOGICAL: Cranial nerves grossly intact; no facial asymmetry, power and sensation grossly intact. LYMPHATICS: No lymph nodes palpable in the axilla and neck INVESTIGATIONS, reviewed in the clinical context: White count 11.3 hemoglobin 15.1 potassium 4.8 creatinine 0.75 2-D echo September 2018 showed EF of 50-55%, concentric left hypertrophy Assessment: -Acute cholecystitis, followed by cholecystectomy, has a rather bloody operative bed, has a PEREZ drain -COPD in an ex-smoker -Chronic congestive heart failure from diastolic dysfunction EF 50-55% -Obesity hypoventilation syndrome -Coronary artery disease with stent -Hyperlipidemia -Essential hypertension -AICD -Chronic low back pain from L2 to L5 with chronic fractures -Morbid obesity BMI 46.8 -Chronic hypoxic respiratory failure on 2 L oxygen at home Plan: Home medications to be resumed. Did discuss with Dr. Bean at this morning. The operative site was rather oozing. Hence to hold of the antiplatelet agents for the present time. Bronchodilators will be resumed. He will done excellent followed closely. Patient's currently on ice chips. Diet to be advanced per surgery. Patient also on telemetry Thank you Dr. Bean Past Medical History Past Medical History: Coronary Artery Disease (CAD), Chest Pain / Angina, COPD, CVA/TIA, Hyperlipidemia, Hypertension, Myocardial Infarction (AL), Osteoarthritis (OA), Respiratory Disorder, Sleep Apnea/CPAP/BIPAP Additional Past Medical History / Comment(s): obesity, obesity hypoventilation syndrome, suspected CHF and cor pulmonale, previous history of pacemaker placement, CVA in 2004, chronic back pain secondary to DDD and spinal canal stenosis, history of vertebral fracture L2 through L5, chronic lower extremity edema, diverticular disease, L knee fx in past and torn R rotator cuff, cellulitis, recent hospitalization for gallbladder issues, states doesn't normally see embroidery cutter, just visiting physician although saw one in hospital recently Last Myocardial Infarction Date:: 2011 History of Any Multi-Drug Resistant Organisms: None Reported Past Surgical History: Heart Catheterization With Stent, Hernia Repair, Pacemaker Additional Past Surgical History / Comment(s): PTCA with stent (4 total), 04/05/13 [employer] pacemaker, 1989' umbilical hernia repair, colonoscopy, circumcision, R eye surgery for strabismus. Past Anesthesia/Blood Transfusion Reactions: No Reported Reaction Date of Last Stent Placement:: 2012 Type of Cardiac Device: Permanent Pacemaker Device Placement Date:: 04/05/13 Past Psychological History: No Psychological Hx Reported Additional Psychological History / Comment(s): Pt is living in a home with roomates. He can drive. He states he uses a cane or walker at home. Smoking Status: Current some day smoker Past Alcohol Use History: None Reported Additional Past Alcohol Use History / Comment(s): Pt states he started smoking around 1970 and smokes just a couple cigarettes a day Past Drug Use History: None Reported - Past Family History Father Family Medical History: Musculoskeletal Disorder, Neurologic Disorder Additional Family Medical History / Comment(s): Father had parkinson's dx and at age 84 yrs. Mother Family Medical History: Myocardial Infarction (AL) Additional Family Medical History / Comment(s): Mother had 3 vessel CABG. She of a massive AL at the age of 53 yrs. Medications and Allergies Home Medications Medication Instructions Recorded Confirmed Type Isosorbide Mononitrate ER [Imdur] 60 mg PO DAILY 04/25/17 01/04/19 History Losartan [Cozaar] 50 mg PO DAILY #30 tab 04/27/17 01/04/19 Rx Atorvastatin [Lipitor] 40 mg PO HS 02/10/18 01/04/19 History Furosemide [Lasix] 40 mg PO DAILY 02/10/18 01/04/19 History Cyanocobalamin (Vitamin B-12) 1,000 mcg PO DAILY 04/16/18 01/04/19 History [Vitamin B-12] Ipratropium-Albuterol Nebulize 3 ml INHALATION RT-TID PRN 04/16/18 01/04/19 History [Duoneb 0.5 mg-3 mg/3 ml Soln] Metoprolol Succinate [Toprol XL] 50 mg PO DAILY 12/03/18 01/04/19 History Aspirin 325 mg PO DAILY 01/01/19 01/01/19 History Clopidogrel [Plavix] 75 mg PO DAILY 01/01/19 01/01/19 History oxyCODONE-APAP 10-325MG [Percocet 1 tab PO Q8HR PRN 01/01/19 01/04/19 History 10-325 mg] Allergies Allergy/AdvReac Type Severity Reaction Status Date / Time No Known Allergies Allergy Verified 01/04/19 13:44 Physical Exam Vitals: Vital Signs Temp Pulse Resp BP BP Pulse Ox 01/05/19 08:00 72 15 01/05/19 07:51 97.8 F 72 15 143/89 91 L 01/05/19 01:55 98.4 F 71 18 156/75 97 01/04/19 20:30 81 122/71 01/04/19 20:15 73 142/84 01/04/19 20:00 70 138/83 01/04/19 19:45 68 138/85 01/04/19 19:30 68 136/85 95 01/04/19 19:15 71 135/84 94 L 01/04/19 19:00 75 154/98 93 L 01/04/19 18:45 59 L 142/91 94 L 01/04/19 18:30 98.1 F 70 14 126/78 91 L 01/04/19 18:15 64 18 139/74 93 L 01/04/19 18:00 63 15 119/59 93 L 01/04/19 17:45 64 16 123/69 94 L 01/04/19 17:39 96.8 F L 67 18 139/76 98 01/04/19 13:44 98.1 F 61 18 144/74 92 L Intake and Output 01/04/19 01/05/19 01/05/19 22:59 06:59 14:59 Intake Total 1900 1000 Output Total 515 270 410 Balance 1385 730 -410 Intake: IV 1900 Intake, IV Titration 1000 Amount Lactated Ringers 1,000 ml 1000 @ 125 mls/hr IV .Q8H [facility] Rx#:[id number] Output: Drainage 70 270 60 Abdomen 70 270 60 Urine 350 Estimated Blood Loss 445 Other: Voiding Method Urinal Urinal # Voids 1 Results CBC & Chem 7: 01/05/19 09:39 01/05/19 09:39 Labs: Abnormal Lab Results - Last 24 Hours (Table) 01/05/19 01/05/19 Range/Units 09:39 09:39 WBC 11.3 H (3.8-10.6) k/uL Neutrophils # 9.1 H (1.3-7.7) k/uL Glucose 106 H (74-99) mg/dL ALT 81 H (21-72) U/L Total Protein 6.2 L (6.3-8.2) g/dL
[2019-01-05] MEDS: ATORVASTATIN 40 MG TAB PO SCH (20:05)
[2019-01-05] MEDS: IPRATROPIUM-ALBUTEROL 3 ML NEB INHALATION PRN (20:52)
[2019-01-06] MEDS: LACTATED RINGERS 1,000 ML IV SCH ×3 (01:40→19:10)
[2019-01-06] MEDS: HYDROmorphone 1 MG/ML 1 ML SYRINGE IVP PRN ×7 (03:16→22:16)
[2019-01-06] MEDS: FUROSEMIDE 20 MG TAB PO SCH (07:14)
[2019-01-06] MEDS: oxyCODONE-APAP 10-325MG 1 EACH TAB PO PRN ×3 (07:15→20:17)
[2019-01-06] MEDS: FAMOTIDINE 20 MG TAB PO SCH ×2 (07:15→19:10)
[2019-01-06] MEDS: ISOSORBIDE MONONITRATE ER 60 MG TAB.ER.24H PO SCH (07:15)
[2019-01-06] MEDS: LOSARTAN 50 MG TAB PO SCH (07:15)
[2019-01-06] MEDS: METOPROLOL SUCCINATE (ER) 25 MG TAB.ER.24H PO SCH (07:15)
[2019-01-06 07:30] LABS: Basophils % (A) 0 %; Eosinophils # (A) 0.1 k/uL (0-0.7); Eosinophils % (A) 1 %; HCT 44.1 % (39.0-53.0); HGB 14.2 gm/dL (13.0-17.5); Lymphocytes # (A) 2.1 k/uL (1.0-4.8); Lymphocytes % (A) 26 %; MCH 29.7 pg (25.0-35.0); MCHC 32.1 g/dL (31.0-37.0); MCV 92.6 fL (80.0-100.0); Mean Platelet Volume 7.4; Monocytes # (A) 0.6 k/uL (0-1.0); Monocytes % (A) 7 %; Neutrophils # (A) 5.4 k/uL (1.3-7.7); Neutrophils % (A) 65 %; Platelet Count 159 k/uL (150-450); RBC 4.77 m/uL (4.30-5.90); RDW 14.3 % (11.5-15.5); WBC 8.2 k/uL (3.8-10.6)
[2019-01-06 07:49] LABS: ALT 59 U/L (21-72); AST 34 U/L (17-59); African American GFR (CKD) >90 (>60 ml/min/1.73 sqM); Albumin 3.4 g/dL (3.5-5.0); Alkaline Phosphatase 58 U/L (38-126); Anion Gap 5 mmol/L; Blood Urea Nitrogen 15 mg/dL (9-20); Calcium 8.9 mg/dL (8.4-10.2); Carbon Dioxide 33 mmol/L (22-30); Chloride 99 mmol/L (98-107); Glucose 84 mg/dL (74-99); Non-African American GFR(CKD) 84 (>60 ml/min/1.73 sqM); Potassium 4.2 mmol/L (3.5-5.1); Sodium 137 mmol/L (137-145); Total Bilirubin 1.2 mg/dL (0.2-1.3)
[2019-01-06] MEDS: HEPARIN SODIUM,PORCINE 5,000 UNIT/ML 1 ML VIAL SQ SCH ×3 (09:16→23:54)
--- NOTE | 2019-01-06 09:52 | P.PN ---
Subjective Progress Note Date: 01/06/19 Principal diagnosis: Preoperative cardiac assessment This is a pleasant 63-year-old gentleman with a past medical history significant for coronary artery disease, COPD, obesity, hypertension, and dyslipidemia, and status post post device implantation, was admitted to the hospital and underwent what it seems to be complex laparoscopic cholecystectomy which was uneventful. On follow-up with the patient today, January [id number], he seems to continue having abdominal discomfort and he is on pain medication. Cardiac-rangel he is asymptomatic. Hemodynamically he is stable. He is on maximize medical treatment. Objective - Vital Signs Vital signs: Vital Signs Temp 98.3 F 01/06/19 07:00 Pulse 64 01/06/19 07:00 Resp 18 01/06/19 07:00 BP 123/77 01/06/19 07:00 Pulse Ox 94 L 01/06/19 07:00 Intake & Output 01/05/19 01/06/19 01/06/19 18:59 06:59 18:59 Intake Total 1600 Output Total 1345 160 Balance -1345 1440 Intake: Intake, IV Titration 1200 Amount Lactated Ringers 1,000 ml 1200 @ 125 mls/hr IV .Q8H [facility] Rx#:[id number] Oral 400 Output: Drainage 195 160 Abdomen 195 160 Urine 1150 Other: Voiding Method Urinal - Constitutional General appearance: Present: no acute distress - Respiratory Respiratory: bilateral: diminished - Cardiovascular Rhythm: regular - Labs CBC & Chem 7: 01/06/19 06:56 01/06/19 06:56 Labs: Abnormal Lab Results - Last 24 Hours (Table) 01/05/19 01/05/19 01/06/19 Range/Units 09:39 09:39 06:56 WBC 11.3 H (3.8-10.6) k/uL Neutrophils # 9.1 H (1.3-7.7) k/uL Carbon Dioxide 33 H (22-30) mmol/L Glucose 106 H (74-99) mg/dL ALT 81 H (21-72) U/L Total Protein 6.2 L 6.0 L (6.3-8.2) g/dL Albumin 3.4 L (3.5-5.0) g/dL Assessment and Plan Assessment: Assessment #1 status post cholecystectomy #2 CAD which seems to be stable #3 status post device implantation #4 multiple comorbid conditions Plan #1 continue the current medical regimen #2 follow-up with the patient
--- NOTE | 2019-01-06 12:39 | P.PN ---
Subjective Progress Note Date: 01/06/19 Principal diagnosis: S/P laparoscopic cholecystectomy The patient is postoperative day 1 laparoscopic cholecystectomy. He's having some expected incisional pain. He has chronic back pain and is requesting that his oxycodone be given at a frequency he normally takes at home. Reading a clear liquid diet. No nausea or vomiting. Objective - Vital Signs Vital signs: Vital Signs Temp 98.3 F 01/06/19 07:00 Pulse 64 01/06/19 08:45 Resp 18 01/06/19 08:45 BP 123/77 01/06/19 07:00 Pulse Ox 94 L 01/06/19 07:00 Intake & Output 01/05/19 01/06/19 01/06/19 18:59 06:59 18:59 Intake Total 1600 Output Total 1345 160 400 Balance -1345 1440 -400 Intake: Intake, IV Titration 1200 Amount Lactated Ringers 1,000 ml 1200 @ 125 mls/hr IV .Q8H [facility] Rx#:[id number] Oral 400 Output: Drainage 195 160 Abdomen 195 160 Urine 1150 400 Other: Voiding Method Urinal Urinal # Voids 1 - Constitutional General appearance: Present: cooperative, no acute distress - Respiratory Respiratory: bilateral: CTA, diminished (At the bases), wheezing - Gastrointestinal General gastrointestinal: Present: normal bowel sounds, soft Localized gastrointestinal: surgical scar: diffuse (There is some bloody drainage near the PEREZ dressing. The PEREZ bulb shows yang bile present.) - Labs CBC & Chem 7: 01/06/19 06:56 01/06/19 06:56 Labs: Abnormal Lab Results - Last 24 Hours (Table) 01/06/19 Range/Units 06:56 Carbon Dioxide 33 H (22-30) mmol/L Total Protein 6.0 L (6.3-8.2) g/dL Albumin 3.4 L (3.5-5.0) g/dL Assessment and Plan (1) Bile leak, postoperative Current Visit: Yes Status: Acute Code(s): K91.89 - OTH POSTPROCEDURAL COMPLICATIONS AND DISORDERS OF DGSTV SYS; K83.8 - OTHER SPECIFIED DISEASES OF BILIARY TRACT SNOMED Code(s): 389652506 (2) Cholecystitis Current Visit: Yes Status: Acute Code(s): K81.9 - CHOLECYSTITIS, UNSPECIFIED SNOMED Code(s): 98363325 (3) Lumbar degenerative disc disease Current Visit: No Status: Acute Code(s): M51.36 - OTHER INTERVERTEBRAL DISC DEGENERATION, LUMBAR REGION SNOMED Code(s): 23992621 Plan: The patient's oxycodone will be adjusted to the dose he typically takes at home. I explained bile leak to him. GI will be consulted for an ERCP with possible stenting. I was able to contact Dr. Anna Burrell who will perform this for her on Tuesday as the patient is currently stable and fairly asymptomatic. Also advance his diet today.
--- NOTE | 2019-01-06 16:45 | P.PN ---
Progress Note - Text Progress Note Date: 01/06/19 - Chief Complaint Abdominal pain Interval history: This is a pleasant 62 patient of visiting physician Dr. Min. Chronic stable medical conditions include coronary artery disease with stent, hypertension, hyperlipidemia, obstructive sleep apnea, diverticulosis, arthritis, chronic lumbar pain L2 to L5, chronic fractures and AICD. 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 Patient was recently diagnosed with cholecystit is. Because he was on aspirin and Plavix he was treated with antibiotics and sent home to come back electively for the surgery. Patient was recently discharged from hospital on December 21 with antibiotics and had a scheduled elective cystectomy done by Dr. Bean on January 04. I did speak to Dr. Bean, patient's gallbladder and the bed was rather friable and it was quite a bit of blood. Patient has a drain in place. Today-sitting up in a chair. Some pain is present. No nausea vomiting. Has walked a bit. No flatus or bowel movement. No fever no chills. Review of systems: Was done for constitutional, cardiovascular, GI, pulmonary. relevant finding as above Active Medications Albuterol/Ipratropium (Duoneb 0.5 Mg-3 Mg/3 Ml Soln) 3 ml INHALATION RT-TID PRN PRN Reason: Shortness Of Breath Last Admin: 01/05/19 20:52 Dose: 3 ml Documented by: Atorvastatin Calcium (Lipitor) 40 mg PO HS [facility] Last Admin: 01/05/19 20:05 Dose: 40 mg Documented by: Famotidine (Pepcid) 20 mg PO BID [facility] Last Admin: 01/06/19 07:15 Dose: 20 mg Documented by: Furosemide (Lasix) 60 mg PO DAILY [facility] Last Admin: 01/06/19 07:14 Dose: 60 mg Documented by: Heparin Sodium (Porcine) (Heparin) 5,000 unit SQ Q8HR [facility] Last Admin: 01/06/19 09:16 Dose: 5,000 unit Documented by: Hydromorphone HCl (Dilaudid) 1 mg IVP Q3HR PRN PRN Reason: Moderate to Severe Pain Last Admin: 01/06/19 16:25 Dose: 1 mg Documented by: Lactated Ringer's (Lactated Ringers) 1,000 mls @ 125 mls/hr IV .Q8H [facility] Last Admin: 01/06/19 13:13 Dose: 125 mls/hr Documented by: Isosorbide Mononitrate (Imdur) 60 mg PO DAILY [facility] Last Admin: 01/06/19 07:15 Dose: 60 mg Documented by: Losartan Potassium (Cozaar) 50 mg PO DAILY [facility] Last Admin: 01/06/19 07:15 Dose: 50 mg Documented by: Metoclopramide HCl (Reglan) 10 mg IVP Q6H PRN PRN Reason: Nausea And Vomiting Metoprolol Succinate (Toprol Xl) 50 mg PO DAILY [facility] Last Admin: 01/06/19 07:15 Dose: 50 mg Documented by: Naloxone HCl (Narcan) 0.2 mg IV Q2M PRN PRN Reason: Opioid Reversal Ondansetron HCl (Zofran) 4 mg IVP Q8HR PRN PRN Reason: Nausea And Vomiting Oxycodone/Acetaminophen (Percocet 10-325) 1 each PO Q4H PRN PRN Reason: Pain Last Admin: 01/06/19 13:03 Dose: 1 each Documented by: Physical examination: VITAL SIGNS: 98.3, 64, 18, 123/77, 94% on room liter GENERAL: 46.8 BMI, sitting up in a chair EYES: Pupils equal. Conjunctiva normal. HEENT: External appearance of nose and ears normal, oral cavity grossly normal. NECK: JVD unable to assess; masses not palpable. HEART: Heart sounds muffled, minimal edema. LUNGS: Respiratory rate increased, decreased breath sound. ABDOMEN: Soft, tender, bowel sounds sluggish, right upper quadrant PEREZ drain liver spleen not palpable, no masses palpable. PSYCH: Alert and oriented x3; mood and affect normal. INVESTIGATIONS, reviewed in the clinical context: White count 8.2 hemoglobin 14.2 potassium 4.2 Previous labs White count 11.3 hemoglobin 15.1 potassium 4.8 creatinine 0.75 2-D echo September 2018 showed EF of 50-55%, concentric left hypertrophy Assessment: -Acute cholecystitis, followed by cholecystectomy, has a rather bloody operative bed, has a PEREZ drain -COPD in an ex-smoker -Chronic congestive heart failure from diastolic dysfunction EF 50-55% -Obesity hypoventilation syndrome -Coronary artery disease with stent -Hyperlipidemia -Essential hypertension -AICD -Chronic low back pain from L2 to L5 with chronic fractures -Morbid obesity BMI 46.8 -Chronic hypoxic respiratory failure on 2 L oxygen at home Plan: Continue current medication treatment plan. Care was discussed with the patient. Encouraged to ambulate Thank you Dr. Bean
[2019-01-06] MEDS: IPRATROPIUM-ALBUTEROL 3 ML NEB INHALATION PRN (16:46)
[2019-01-06] MEDS: ATORVASTATIN 40 MG TAB PO SCH (19:10)
[2019-01-07] MEDS: LACTATED RINGERS 1,000 ML IV SCH ×3 (03:16→21:52)
[2019-01-07] MEDS: HYDROmorphone 1 MG/ML 1 ML SYRINGE IVP PRN ×5 (03:33→21:43)
[2019-01-07] MEDS: oxyCODONE-APAP 10-325MG 1 EACH TAB PO PRN ×5 (05:09→22:07)
[2019-01-07 06:49] LABS: Basophils % (A) 0 %; Eosinophils # (A) 0.2 k/uL (0-0.7); Eosinophils % (A) 2 %; HCT 42.4 % (39.0-53.0); HGB 13.6 gm/dL (13.0-17.5); Lymphocytes # (A) 1.9 k/uL (1.0-4.8); Lymphocytes % (A) 25 %; MCH 29.4 pg (25.0-35.0); MCV 91.8 fL (80.0-100.0); Mean Platelet Volume 7.9; Monocytes # (A) 0.5 k/uL (0-1.0); Monocytes % (A) 6 %; Neutrophils # (A) 4.9 k/uL (1.3-7.7); Neutrophils % (A) 65 %; Platelet Count 160 k/uL (150-450); RBC 4.62 m/uL (4.30-5.90); RDW 14.1 % (11.5-15.5); WBC 7.6 k/uL (3.8-10.6)
[2019-01-07 07:02] LABS: ALT 55 U/L (21-72); AST 35 U/L (17-59); African American GFR (CKD) >90 (>60 ml/min/1.73 sqM); Albumin 3.3 g/dL (3.5-5.0); Alkaline Phosphatase 61 U/L (38-126); Anion Gap 6 mmol/L; Blood Urea Nitrogen 16 mg/dL (9-20); Calcium 8.9 mg/dL (8.4-10.2); Carbon Dioxide 30 mmol/L (22-30); Chloride 100 mmol/L (98-107); Glucose 90 mg/dL (74-99); Non-African American GFR(CKD) 88 (>60 ml/min/1.73 sqM); Potassium 4.1 mmol/L (3.5-5.1); Sodium 136 mmol/L (137-145); Total Protein 5.9 g/dL (6.3-8.2)
[2019-01-07] MEDS: HEPARIN SODIUM,PORCINE 5,000 UNIT/ML 1 ML VIAL SQ SCH ×3 (07:45→23:38)
[2019-01-07] MEDS: METOPROLOL SUCCINATE (ER) 25 MG TAB.ER.24H PO SCH (07:46)
[2019-01-07] MEDS: FAMOTIDINE 20 MG TAB PO SCH ×2 (07:46→21:43)
[2019-01-07] MEDS: ISOSORBIDE MONONITRATE ER 60 MG TAB.ER.24H PO SCH (07:46)
[2019-01-07] MEDS: LOSARTAN 50 MG TAB PO SCH (07:47)
[2019-01-07] MEDS: FUROSEMIDE 20 MG TAB PO SCH (07:47)
--- NOTE | 2019-01-07 10:33 | CONS ---
CONSULTATION REQUESTING PHYSICIAN: Dr. Devi Bean. REASON FOR CONSULTATION: ERCP from post lap kalpesh bile leak. HISTORY OF PRESENT ILLNESS: The patient is a 63-year-old pleasant white male who underwent laparoscopic cholecystectomy by Dr. Bean on January 05 for symptomatic gallstones. Postoperatively the patient complained of severe abdominal pain and hence, is admitted to the hospital and being observed closely. Yesterday, he had a PEREZ drain placed following the cholecystectomy and he had approximately 300 mL of bilious liquid in the PEREZ drain and hence consulted by Dr. Casiano for ERCP with CBD stent placement. This morning the patient states that he is feeling better. The PEREZ drain has significantly decreased. In fact in the last 12 hours, he only had 30 mL of serosanguineous drainage. He denies any abdominal pain. He reports no nausea, vomiting. Overall he is feeling much better. On a regular diet tolerating well. PAST MEDICAL HISTORY: Significant for obesity, hypertension, COPD, coronary artery disease, status post stent placement in the past, history of chronic low back pain, COPD on home O2. PAST SURGICAL HISTORY: ICD implantation, recent cholecystectomy 3 days ago. MEDICATIONS: At home include Imdur, Cozaar, Lipitor Lasix, vitamin B12, DuoNeb, Toprol, aspirin, Plavix, Percocet. ALLERGIES: None. SOCIAL HISTORY: No smoking. No alcohol use. FAMILY HISTORY: Father had Parkinson's disease and mother had coronary artery disease. PAST SURGICAL HISTORY: AICD implantation, right eye cataract surgery, umbilical hernia repair, cardiac cath with stent placement, hernia repair, right shoulder repair. REVIEW OF SYSTEMS: CARDIOPULMONARY: Denies any chest pain, shortness of breath. GENITOURINARY: No dysuria or hematuria. MUSCULOSKELETAL: Unremarkable. SKIN: Unremarkable. ENDOCRINE: Unremarkable. PSYCHIATRIC: Unremarkable. NEUROLOGY: Unremarkable. ENT/VISION: Unremarkable. CONSTITUTIONAL: No recent weight loss. No fever, chills, night sweats. PHYSICAL EXAMINATION: He appears comfortable. No apparent distress. Vital signs are stable. Blood pressure is 108/66, pulse rate is 80, temperature 97.8. HEENT: Examination unremarkable. Conjunctivae pink. Sclerae anicteric. Oral cavity no lesions. NECK: No JVD or lymph node enlargement. CHEST: Clear to auscultation. HEART: Regular rate and rhythm. ABDOMEN: Soft. Bowel sounds are positive. PEREZ drain in place. There was 30 mL of serosanguineous fluid noted. The rest of the abdomen was benign. EXTREMITIES: No pedal edema. SKIN: No rashes. NEUROLOGIC: Alert and oriented x3. No focal deficits. LABS: Done last admission today, WBC 7.6, hemoglobin 7.6, platelets normal. Basic metabolic panel is within normal limits. IMPRESSION: The patient underwent laparoscopic cholecystectomy for symptomatic gallstones a few days ago for which he underwent a PEREZ drain in place which has significant amount of bilious drainage around 300 mL in the last 24 hours. We are consulted for possibility of ERCP and CBD stent placement. However, on evaluating the patient this morning, there was significant drop in the biliary drain and there is only 30 mL in the last 12 hours and most of it is serosanguineous in nature. He denies any abdominal symptoms. RECOMMENDATIONS: At this time, since there is significant decrease in the biliary drainage, I suggested that we continue to watch him closely clinically. I do not think he will need an ERCP with CBD stent placement at this time. However, the biliary drainage increases, I will consider this tomorrow. The plan was discussed with the patient. He is agreeable to it. Thank you for this consultation. MMODL / IJN: [id number] /
--- NOTE | 2019-01-07 10:51 | P.PN ---
Subjective Progress Note Date: 01/07/19 Principal diagnosis: Preoperative cardiac assessment This is a pleasant 63-year-old gentleman with a past medical history significant for coronary artery disease, COPD, obesity, hypertension, and dyslipidemia, and status post post device implantation, was admitted to the hospital and underwent what it seems to be complex laparoscopic cholecystectomy which was uneventful. On follow-up with the patient today, January [id number], the patient seems to be doing good from a cardiovascular standpoint overview. His pain has improved significantly. He denies any symptoms of chest pain or chest discomfort. He remains hemodynamically stable. Objective - Vital Signs Vital signs: Vital Signs Temp 98.6 F 01/07/19 07:31 Pulse 62 01/07/19 07:50 Resp 18 01/07/19 07:50 BP 137/84 01/07/19 07:31 Pulse Ox 94 L 01/07/19 07:31 Intake & Output 01/06/19 01/07/19 01/07/19 18:59 06:59 18:59 Intake Total 1350 1100 Output Total 640 100 200 Balance 710 1000 -200 Intake: Intake, IV Titration 900 1100 Amount Lactated Ringers 1,000 ml 900 1100 @ 125 mls/hr IV .Q8H [facility] Rx#:[id number] Oral 450 Output: Drainage 240 100 Abdomen 240 100 Urine 400 200 Other: Voiding Method Urinal Urinal # Voids 4 1 - Constitutional General appearance: Present: no acute distress - Respiratory Respiratory: bilateral: CTA - Cardiovascular Rhythm: regular Heart sounds: normal: S1, S2 - Labs CBC & Chem 7: 01/07/19 06:32 01/07/19 06:32 Labs: Abnormal Lab Results - Last 24 Hours (Table) 01/07/19 Range/Units 06:32 Sodium 136 L (137-145) mmol/L Total Protein 5.9 L (6.3-8.2) g/dL Albumin 3.3 L (3.5-5.0) g/dL Assessment and Plan Assessment: Assessment #1 status post cholecystectomy #2 CAD which seems to be stable #3 status post device implantation #4 multiple comorbid conditions Plan #1 continue the current medical regimen #2 we will follow-up with the patient on when necessary case
--- NOTE | 2019-01-07 11:43 | P.PN ---
Subjective Progress Note Date: 01/07/19 Principal diagnosis: Status post laparoscopic cholecystectomy, bile leak The patient is seen on rounds. Tolerating a diet. Denies nausea or vomiting. Pain in his back is better controlled with adjustment of his pain medication. Objective - Vital Signs Vital signs: Vital Signs Temp 98.6 F 01/07/19 07:31 Pulse 62 01/07/19 07:50 Resp 18 01/07/19 07:50 BP 137/84 01/07/19 07:31 Pulse Ox 94 L 01/07/19 07:31 Intake & Output 01/06/19 01/07/19 01/07/19 18:59 06:59 18:59 Intake Total 1350 1100 Output Total 640 100 200 Balance 710 1000 -200 Intake: Intake, IV Titration 900 1100 Amount Lactated Ringers 1,000 ml 900 1100 @ 125 mls/hr IV .Q8H KARINA Rx#:[id number] Oral 450 Output: Drainage 240 100 Abdomen 240 100 Urine 400 200 Other: Voiding Method Urinal Urinal # Voids 4 1 - Constitutional General appearance: Present: cooperative, no acute distress - Gastrointestinal General gastrointestinal: Present: normal bowel sounds, soft Localized gastrointestinal: surgical scar: diffuse (Dressings clean and dry. PEREZ is ileus. He had 340 output past 24 hours) - Labs CBC & Chem 7: 01/07/19 06:32 01/07/19 06:32 Labs: Abnormal Lab Results - Last 24 Hours (Table) 01/07/19 Range/Units 06:32 Sodium 136 L (137-145) mmol/L Total Protein 5.9 L (6.3-8.2) g/dL Albumin 3.3 L (3.5-5.0) g/dL Assessment and Plan (1) Bile leak, postoperative Current Visit: Yes Status: Acute Code(s): K91.89 - OTH POSTPROCEDURAL COMPLICATIONS AND DISORDERS OF DGSTV SYS; K83.8 - OTHER SPECIFIED DISEASES OF BILIARY TRACT SNOMED Code(s): 455903280 (2) Cholecystitis Current Visit: Yes Status: Acute Code(s): K81.9 - CHOLECYSTITIS, UNSPECIFIED SNOMED Code(s): 81748870 (3) Lumbar degenerative disc disease Current Visit: No Status: Acute Code(s): M51.36 - OTHER INTERVERTEBRAL DISC DEGENERATION, LUMBAR REGION SNOMED Code(s): 38819634 Plan: So far this shift the PEREZ output has decreased. We'll continue to monitor this through the day. If it continues to be significant, he should have a ERCP tomorrow. This was discussed with GI. He had multiple questions which were encouraged and answered.
[2019-01-07] MEDS: PIPERACILLIN-TAZOBACTAM 3.375 GM in SODIUM CHLORIDE 0.9% 100 ML IVPB SCH (16:20)
--- NOTE | 2019-01-07 16:39 | P.PN ---
Progress Note - Text Progress Note Date: 01/07/19 - Chief Complaint Abdominal pain Interval history: This is a pleasant 62 patient of visiting physician Dr. Min. Chronic stable medical conditions include coronary artery disease with stent, hypertension, hyperlipidemia, obstructive sleep apnea, diverticulosis, arthritis, chronic lumbar pain L2 to L5, chronic fractures and AICD. 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 Patient was recently diagnosed with cholecystit is. Because he was on aspirin and Plavix he was treated with antibiotics and sent home to come back electively for the surgery. Patient was recently discharged from hospital on December 21 with antibiotics and had a scheduled elective cystectomy done by Dr. Bean on January 04. I did speak to Dr. Bean, patient's gallbladder and the bed was rather friable and it was quite a bit of blood. Patient has a drain in place. Today-overall feeling better. Has had significant drainage through the PEREZ drain. Seen by GI. ERCP by stent is a possibility. Advance to regular diet. No flatus no bowel movement. Ambulating.. Review of systems: Was done for constitutional, cardiovascular, GI, pulmonary. relevant finding as above Physical examination: VITAL SIGNS: 98.6, 67, 16, 137/84, 94% room air GENERAL: Sitting upon a chair, comfortable EYES: Pupils equal. Conjunctiva normal. HEENT: External appearance of nose and ears normal, oral cavity grossly normal. NECK: JVD unable to assess; masses not palpable. HEART: Heart sounds muffled, minimal edema. LUNGS: Respiratory rate increased, decreased breath sound. ABDOMEN: Soft, tender, bowel sounds sluggish, right upper quadrant PEREZ drain with bloody drainage, liver spleen not palpable, no masses palpable. PSYCH: Alert and oriented x3; mood and affect normal. INVESTIGATIONS, reviewed in the clinical context: White count 7.6 hemoglobin 13.6 potassium 4.1 Previous labs White count 11.3 hemoglobin 15.1 potassium 4.8 creatinine 0.75 2-D echo September 2018 showed EF of 50-55%, concentric left hypertrophy Assessment: -Acute cholecystitis, followed by cholecystectomy, has a rather bloody operative bed, has a PEREZ drain, with bloody drain. -COPD in an ex-smoker -Chronic congestive heart failure from diastolic dysfunction EF 50-55% -Obesity hypoventilation syndrome -Coronary artery disease with stent -Hyperlipidemia -Essential hypertension -AICD -Chronic low back pain from L2 to L5 with chronic fractures -Morbid obesity BMI 46.8 -Chronic hypoxic respiratory failure on 2 L oxygen at home Plan: Seen by GI. 4 ERCP stent if the PEREZ drain does not go down. Other medication treatment plan to continue. Antiplatelet agents to be resumed when okay with surgery. Care was discussed with the patient Thank you Dr. Bean
[2019-01-07] MEDS: ATORVASTATIN 40 MG TAB PO SCH (21:43)
[2019-01-07] MEDS ORDERED: HYDROmorphone 1 MG/ML 1 ML SYRINGE IVP STA (22:39)
[2019-01-08] MEDS: PIPERACILLIN-TAZOBACTAM 3.375 GM in SODIUM CHLORIDE 0.9% 100 ML IVPB SCH ×3 (00:38→16:01)
[2019-01-08] MEDS: HYDROmorphone 1 MG/ML 1 ML SYRINGE IVP PRN ×4 (01:24→16:01)
[2019-01-08] MEDS: LACTATED RINGERS 1,000 ML IV SCH (01:28)
[2019-01-08] MEDS: oxyCODONE-APAP 10-325MG 1 EACH TAB PO PRN (04:53)
[2019-01-08 08:48] LABS: ALT 72 U/L (21-72); AST 41 U/L (17-59); African American GFR (CKD) >90 (>60 ml/min/1.73 sqM); Albumin 3.8 g/dL (3.5-5.0); Alkaline Phosphatase 74 U/L (38-126); Anion Gap 10 mmol/L; Blood Urea Nitrogen 17 mg/dL (9-20); Calcium 9.5 mg/dL (8.4-10.2); Carbon Dioxide 31 mmol/L (22-30); Chloride 99 mmol/L (98-107); Glucose 94 mg/dL (74-99); Non-African American GFR(CKD) 81 (>60 ml/min/1.73 sqM); Potassium 4.4 mmol/L (3.5-5.1); Sodium 140 mmol/L (137-145); Total Bilirubin 1.1 mg/dL (0.2-1.3); Total Protein 6.8 g/dL (6.3-8.2)
[2019-01-08] MEDS: HEPARIN SODIUM,PORCINE 5,000 UNIT/ML 1 ML VIAL SQ SCH ×2 (09:01→16:01)
[2019-01-08] MEDS: FUROSEMIDE 20 MG TAB PO SCH (09:01)
[2019-01-08] MEDS: LOSARTAN 50 MG TAB PO SCH (09:02)
[2019-01-08] MEDS: ISOSORBIDE MONONITRATE ER 60 MG TAB.ER.24H PO SCH (09:02)
[2019-01-08] MEDS: FAMOTIDINE 20 MG TAB PO SCH (09:02)
[2019-01-08] MEDS: METOPROLOL SUCCINATE (ER) 25 MG TAB.ER.24H PO SCH (09:02)
--- NOTE | 2019-01-08 09:37 | P.PN ---
Subjective Progress Note Date: 01/08/19 Patient seen and examined at bedside. He states that his pain has been increasing. He did need additional pain medication for breakthrough pain last night. PEREZ drain output continues to appear bilious and has slightly increased. He denies any fevers, chills, chest pain or shortness of breath. Objective - Vital Signs Vital signs: Vital Signs Temp 98.3 F 01/08/19 07:00 Pulse 78 01/08/19 07:00 Resp 16 01/08/19 07:00 BP 138/86 01/08/19 07:00 Pulse Ox 94 L 01/08/19 07:00 Intake & Output 01/07/19 01/08/19 01/08/19 18:59 06:59 18:59 Intake Total 180 Output Total 705 210 110 Balance -525 -210 -110 Intake: Oral 180 Output: Drainage 105 210 110 Abdomen 105 210 110 Urine 600 Other: Voiding Method Urinal # Voids 1 - Constitutional General appearance: Present: cooperative, no acute distress - EENT Eyes: Present: PERRLA - Gastrointestinal Gastrointestinal Comment(s): Soft, appropriate tenderness, nondistended, no rebound, no guarding, incision sites are clean, dry and intact, PEREZ drain in place with bilious output. - Psychiatric Psychiatric: Present: A&O x's 3 - Labs CBC & Chem 7: 01/07/19 06:32 01/08/19 07:29 Labs: Abnormal Lab Results - Last 24 Hours (Table) 01/08/19 Range/Units 07:29 Carbon Dioxide 31 H (22-30) mmol/L Assessment and Plan (1) Cholecystitis Narrative/Plan: Postoperative day #4, laparoscopic cholecystectomy - Continue PEREZ drain, as gallbladder was friable along with generalized oozing from surgical field - I did discuss the case with Dr. Burrell. As the patient seems to be having increased amount of pain and some increased output from the PEREZ drain, plan is for ERCP today. We will make further recommendations after ERCP is completed. Current Visit: Yes Status: Acute Code(s): K81.9 - CHOLECYSTITIS, UNSPECIFIED SNOMED Code(s): 21718474
[2019-01-08] MEDS ORDERED: INDOMETHACIN 50MG SUPPOSITORY RECTAL ONE (11:00)
[2019-01-08 11:44] LABS: INR 0.9 (<1.2); Prothrombin Time 10.1 sec (9.0-12.0)
[2019-01-08] MEDS ORDERED: GLUCAGON 1 MG/ML VIAL ONE (12:08)
[2019-01-08] MEDS ORDERED: fentaNYL (PF) 50 MCG/ML 2 ML AMP ONE (12:08)
[2019-01-08] MEDS ORDERED: LIDOCAINE 1% INJ 10MG/ML (20 ML MDV) ONE (12:08)
[2019-01-08] MEDS ORDERED: SUCCINYLCHOLINE CHLORIDE VIAL 200 MG/10 ML VIAL IV ONE (12:08)
[2019-01-08] MEDS ORDERED: MIDAZOLAM 2 MG/2 ML VIAL ONE (12:08)
[2019-01-08] MEDS ORDERED: ePHEDrine SULFATE/0.9% NACL/PF 50 MG/5 ML SYRINGE IV ONE (12:08)
[2019-01-08] MEDS ORDERED: PROPOFOL 10 MG/ML 20 ML VIAL IV ONE (12:08)
[2019-01-08] MEDS ORDERED: IV FLUID CONTINUATION 1,000 ML IV ONE (12:12)
[2019-01-08] MEDS ORDERED: IOPAMIDOL-300 50ML BTL MISCELLANE ONE (13:00)
[2019-01-08] MEDS ORDERED: LACTATED RINGERS 1,000 ML IV ONE (13:15)
--- NOTE | 2019-01-08 13:34 | P.PCN ---
Date of Procedure: 01/08/19 Procedure(s) Performed: BRIEF HISTORY: Patient is a 63-year-old, pleasant, white male, status post laparoscopic cholecystectomy for symptomatic gallstones/acute cholecystitis.. He developed a postoperative bile leak with increasing output from the PEREZ drain. His and scheduled for an ERCP for CBD stent placement PROCEDURE PERFORMED: ERCP with CBD stent placement PREOPERATIVE DIAGNOSIS: Post lap is A cholecystectomy bile leak. Gen. anesthesia PROCEDURE: After informed consent was obtained, the patient was brought into the endoscopy unit. IV sedation was administered by Anesthesia under continuous monitoring. Initially the Olympus GIF-140 video endoscope was inserted into the mouth. Esophagus intubated without any difficulty. It was gradually advanced into the stomach and duodenum and carefully examined. The bulb and the second part of the duodenum appeared normal. Initially cannulation is a thin opacification of the pancreatic duct that appeared normal. Subsequently despite multiple attempts and using a guidewire technique I was not able to cannulate the common bile duct. The catheter was changed an autotome with the guidewire technique was also used with no success. Hence at this time the procedure was terminated. Patient tolerated the procedure well. IMPRESSION: 1. Normal-appearing pancreatic duct. 2. Unsuccessful cannulation of the common bile duct. RECOMMENDATIONS: The findings of this examination were discussed with the patient as well as with Dr. Bean. Because of the high clinical suspicion for bile leak, recommended him to be transferred to [facility] for ERCP and CBD stent placement.
--- NOTE | 2019-01-08 13:54 | FL ---
EXAMINATION TYPE: FL ERCP HISTORY: Fluoroscopy time Impression: 1. Fluoroscopy support provided to the referring physician. 2 minutes 46 seconds of fluoroscopy provi ded. 0 images submitted.
[2019-01-08 16:15] VITALS: BP 118/75; PULSE 62; RESP 17; TEMP 98.4
--- NOTE | 2019-03-05 08:37 | P.DS ---
Providers Date of admission: 01/06/19 08:23 Attending physician: Devi Bean DO Consults: 01/04/19 17:31 Consult Physician Routine Consulting Provider: Gokul Avery Consult Reason/Comments: AICD, post-op Do you want consulting provider notified?: Yes Consult Physician Routine Consulting Provider: Stevo Winn Consult Reason/Comments: Med Mgmt Do you want consulting provider notified?: Yes 01/06/19 12:30 Consult Physician Routine Consulting Provider: Maria Antonia Burrell Consult Reason/Comments: ERCP, bile leak Do you want consulting provider notified?: Already Contacted Primary care physician: Boston Min - Discharge Diagnosis(es) (1) Cholecystitis Status: Acute Hospital Course: 63-year-old male presented for laparoscopic cholecystectomy. He was admitted after procedure with PEREZ drain in place. He was noted to have some bile leakage. There was suspicion of biliary leak. GI was consulted for ERCP. ERCP was unsuccessful in cannulating the common bile duct. Secondary to this, plan was for patient to be transferred to tertiary care center for further intervention. Procedures: Laparoscopic cholecystectomy ERCP Patient Condition at Discharge: Fair Plan - Discharge Summary Discharge Rx Participant: No New Discharge Prescriptions: No Action Isosorbide Mononitrate ER [Imdur] 60 mg PO DAILY Losartan [Cozaar] 50 mg PO DAILY #30 tab Furosemide [Lasix] 40 mg PO DAILY Atorvastatin [Lipitor] 40 mg PO HS Ipratropium-Albuterol Nebulize [Duoneb 0.5 mg-3 mg/3 ml Soln] 3 ml INHALATION RT-TID PRN PRN Reason: Shortness Of Breath Cyanocobalamin (Vitamin B-12) [Vitamin B-12] 1,000 mcg PO DAILY oxyCODONE HCL/ACETAMINOPHEN [Percocet 7.5-325 mg] 1 tab PO QID Metoprolol Succinate [Toprol XL] 50 mg PO DAILY Amoxic-Pot Clav 875-125Mg [Augmentin 875-125] 1 each PO Q12HR #10 tab predniSONE See Taper PO DIRECTED 12 Days #30 tab Discharge Medication List Isosorbide Mononitrate ER [Imdur] 60 mg PO DAILY 04/25/17 [History] Losartan [Cozaar] 50 mg PO DAILY #30 tab 04/27/17 [Rx] Atorvastatin [Lipitor] 40 mg PO HS 09/14/18 [History] Furosemide [Lasix] 40 mg PO DAILY 02/10/18 [History] Cyanocobalamin (Vitamin B-12) [Vitamin B-12] 1,000 mcg PO DAILY 04/16/18 [H istory] Ipratropium-Albuterol Nebulize [Duoneb 0.5 mg-3 mg/3 ml Soln] 3 ml INHALATION RT-TID PRN 04/16/18 [History] Metoprolol Succinate [Toprol XL] 50 mg PO DAILY 02/14/19 [History] oxyCODONE HCL/ACETAMINOPHEN [Percocet 7.5-325 mg] 1 tab PO QID 02/14/19 [History] Amoxic-Pot Clav 875-125Mg [Augmentin 875-125] 1 each PO Q12HR #10 tab 02/16/19 [Rx] predniSONE See Taper PO DIRECTED 12 Days #30 tab 02/16/19 [Rx] Follow up Appointment(s)/Referral(s): Devi Bean DO [Doctor of Osteopathic Medicine] - 01/15/19 9:15 am Patient Instructions/Handouts: *Surgery [facility] - Laparoscopic Cholecystectomy Discharge Instructions, *Surgery [facility] - (Anesthesia) Discharge Instructions Outpatient Surgery Discharge Disposition: TRANSFER TO SHORT TERM HOSP
== END 2019-01-08 18:40 | disposition short-term general hospital (02) | DRG 357 ==
LOC: OR 13:03 → 4SSUR 17:24 → OR 01-06 08:06 → 4SSUR 01-06 08:23
PROVIDERS: ADMIT Surgery; ATTEND Surgery
PROC: 0FT44ZZ Resection of Gallbladder, Percutaneous Endoscopic Approach (ICD-10-PCS; principal; 2019-01-04 14:20)
PROC: 0FJB8ZZ Inspection of Hepatobiliary Duct, Via Natural or Artificial Opening Endoscopic (ICD-10-PCS; 2019-01-08)
DX: K91.89 Other postprocedural complications and disorders of digestive system (principal); K80.00 Calculus of gallbladder with acute cholecystitis without obstruction; E66.2 Morbid (severe) obesity with alveolar hypoventilation; Z68.42 Body mass index [BMI] 45.0-49.9, adult; I50.32 Chronic diastolic (congestive) heart failure; J96.11 Chronic respiratory failure with hypoxia; I27.81 Cor pulmonale (chronic); K83.8 Other specified diseases of biliary tract; I11.0 Hypertensive heart disease with heart failure; J44.9 Chronic obstructive pulmonary disease, unspecified; G47.33 Obstructive sleep apnea (adult) (pediatric); M51.36 Other intervertebral disc degeneration, lumbar region; K57.90 Diverticulosis of intestine, part unspecified, without perforation or abscess without bleeding; E78.5 Hyperlipidemia, unspecified; I25.10 Atherosclerotic heart disease of native coronary artery without angina pectoris; M19.90 Unspecified osteoarthritis, unspecified site; S32.029S Unspecified fracture of second lumbar vertebra, sequela; G89.29 Other chronic pain; S32.039S Unspecified fracture of third lumbar vertebra, sequela; S32.049S Unspecified fracture of fourth lumbar vertebra, sequela; S32.059S Unspecified fracture of fifth lumbar vertebra, sequela; I25.2 Old myocardial infarction; F17.210 Nicotine dependence, cigarettes, uncomplicated; Z71.6 Tobacco abuse counseling; Z99.81 Dependence on supplemental oxygen; Z79.82 Long term (current) use of aspirin; Z79.02 Long term (current) use of antithrombotics/antiplatelets; Z79.899 Other long term (current) drug therapy; Z95.5 Presence of coronary angioplasty implant and graft; Z95.810 Presence of automatic (implantable) cardiac defibrillator; Z99.89 Dependence on other enabling machines and devices; Z98.890 Other specified postprocedural states; Z87.81 Personal history of (healed) traumatic fracture; Y83.8 Other surgical procedures as the cause of abnormal reaction of the patient, or of later complication, without mention of misadventure at the time of the procedure; Z82.0 Family history of epilepsy and other diseases of the nervous system; Z82.49 Family history of ischemic heart disease and other diseases of the circulatory system; Z86.73 Personal history of transient ischemic attack (TIA), and cerebral infarction without residual deficits
CPT/HCPCS: 43260; 74330; 80053; 85025; 85610; 88304; 94640; 94660; 94760

== ENCOUNTER 2019-02-14 14:40 | Inpatient (IN) | payer MEDICARE ==
[2019-02-14] MEDS ORDERED: ALBUTEROL NEBULIZED 2.5 MG/3 ML INHALATION STA (15:22)
[2019-02-14] MEDS ORDERED: methylPREDNISolone SOD SUCCI 125 MG/2 ML VIAL IV STA (15:22)
[2019-02-14] MEDS ORDERED: IPRATROPIUM 0.5 MG/2.5 ML NEBU INHALATION STA (15:22)
--- NOTE | 2019-02-14 15:25 | ED ---
General Adult HPI - General Chief complaint: Shortness of Breath Stated complaint: SOB Time Seen by Provider: 02/14/19 14:45 Source: EMS, RN notes reviewed Mode of arrival: EMS Limitations: no limitations - History of Present Illness Initial comments: This a 63-year-old male who presents emergency Department with a past medical history significant for congestive heart failure and coronary artery disease with 4 stents placed. Patient comes in today stating he has been coughing a lot and coughing up a lot of green sputum a lot of people around him are sick. Patient states he has had some chills but never took his temperature. Patient states he also been short of breath when his doctor saw him his pulse ox was 86% on room air. Patient states he advised him to come to the hospital. Patient states he's had no chest pain or palpitations just a lot of cough and sputum production and shortness of breath per patient denies any abdominal pain. P atient denies any back pain. Patient denies any vomiting or diarrhea. Patient denies any swelling to the legs or calf tenderness. - Related Data Home Medications Medication Instructions Recorded Confirmed Isosorbide Mononitrate ER [Imdur] 60 mg PO DAILY 04/25/17 02/14/19 Atorvastatin [Lipitor] 40 mg PO HS 02/10/18 02/14/19 Furosemide [Lasix] 40 mg PO DAILY 02/10/18 02/14/19 Cyanocobalamin (Vitamin B-12) 1,000 mcg PO DAILY 04/16/18 02/14/19 [Vitamin B-12] Ipratropium-Albuterol Nebulize 3 ml INHALATION RT-TID PRN 04/16/18 02/14/19 [Duoneb 0.5 mg-3 mg/3 ml Soln] Metoprolol Succinate [Toprol XL] 50 mg PO DAILY 02/14/19 02/14/19 oxyCODONE HCL/ACETAMINOPHEN 1 tab PO QID 02/14/19 02/14/19 [Percocet 7.5-325 mg] Previous Rx's Medication Instructions Recorded Losartan [Cozaar] 50 mg PO DAILY #30 tab 04/27/17 Allergies Allergy/AdvReac Type Severity Reaction Status Date / Time No Known Allergies Allergy Verified 02/14/19 15:31 Review of Systems ROS Statement: Those systems with pertinent positive or pertinent negative responses have been documented in the HPI. ROS Other: All systems not noted in ROS Statement are negative. Past Medical History Past Medical History: Coronary Artery Disease (CAD), Chest Pain / Angina, COPD, CVA/TIA, Hyperlipidemia, Hypertension, Myocardial Infarction (OK), Osteoarthritis (OA), Respiratory Disorder, Sleep Apnea/CPAP/BIPAP Additional Past Medical History / Comment(s): obesity, obesity hypoventilation syndrome, suspected CHF and cor pulmonale, previous history of pacemaker placement, CVA in 2004, chronic back pain secondary to DDD and spinal canal stenosis, history of vertebral fracture L2 through L5, chronic lower extremity edema, diverticular disease, L knee fx in past and torn R rotator cuff, cellulitis, recent hospitalization for gallbladder issues, states doesn't normally see shampoo assistant, just visiting physician although saw one in hospital recently Last Myocardial Infarction Date:: 2011 History of Any Multi-Drug Resistant Organisms: None Reported Past Surgical History: Heart Catheterization With Stent, Hernia Repair, Pacemaker Additional Past Surgical History / Comment(s): PTCA with stent (4 total), 04/05/13 [employer] pacemaker, umbilical hernia repair, colonoscopy, circumcision, R eye surgery for strabismus. Past Anesthesia/Blood Transfusion Reactions: No Reported Reaction Date of Last Stent Placement:: 2012 Type of Cardiac Device: Permanent Pacemaker Device Placement Date:: 04/05/13 Past Psychological History: No Psychological Hx Reported Smoking Status: Current some day smoker Past Alcohol Use History: None Reported Past Drug Use History: None Reported - Past Family History Father Family Medical History: Musculoskeletal Disorder, Neurologic Disorder Additional Family Medical History / Comment(s): Father had parkinson's dx and at age 84 yrs. Mother Family Medical History: Myocardial Infarction (OK) Additional Family Medical History / Comment(s): Mother had 3 vessel CABG. She of a massive OK at the age of 53 yrs. General Exam - General Exam Comments Initial Comments: GENERAL: Patient is well-developed and well-nourished. Patient is nontoxic and well- hydrated and is in mild distress. ENT: Neck is soft and supple. No significant lymphadenopathy is noted. Oropharynx is clear. Moist mucous membranes. Neck has full range of motion without eliciting any pain. EYES: The sclera were anicteric and conjunctiva were pink and moist. Extraocular movements were intact and pupils were equal round and reactive to light. Eyelids were unremarkable. PULMONARY: She has expiratory wheezing and rhonchi bilaterally CARDIOVASCULAR: There is a regular rate and rhythm without any murmurs gallops or rubs. ABDOMEN: Soft and nontender with normal bowel sounds. No palpable organomegaly was noted. There is no palpable pulsatile mass. SKIN: Skin is clear with no lesions or rashes and otherwise unremarkable. NEUROLOGIC: Patient is alert and oriented x3. Cranial nerves II through XII are grossly intact. Motor and sensory are also intact. Normal speech, volume and content. Symmetrical smile. MUSCULOSKELETAL: Normal extremities with adequate strength and full range of motion. No lower extremity swelling or edema. No calf tenderness. LYMPHATICS: No significant lymphadenopathy is noted PSYCHIATRIC: Normal psychiatric evaluation. Limitations: no limitations Course Vital Signs 02/14/19 02/14/19 02/14/19 14:44 15:40 15:46 Temperature 97.9 F Pulse Rate 71 74 72 Respiratory 22 Rate Blood Pressure 171/95 O2 Sat by Pulse 98 Oximetry 02/14/19 17:27 Temperature Pulse Rate Respiratory Rate Blood Pressure O2 Sat by Pulse 93 L Oximetry Medical Decision Making - Medical Decision Making EKG shows normal sinus rhythm at 72 bpm SC interval 254 QRS is under 2 QT interval 388 QTC is 424 per patient's EKG shows no ST segment elevation or depression or T wave abnormalities are noted. Patient received a breathing treatment while in the emergency department he continued to wheeze. He was feeling a little bit better so we and related in his pulse ox dropped down to 81%. At this point time I spoke with Dr. Parikh he agreed to admit the patient admitted the patient wrote admitting orders. Patient's chest x-ray shows no acute abnormality. I went back in and listened to the patient's lungs they were wheezing diffusely. I spoke with Dr. Gomez he agreed to admit the patient I admitted the patient I consult pulmonary and I continued the albuterol Atrovent as well as steroids - Lab Data Result diagrams: 02/14/19 14:45 02/14/19 14:45 Lab Results 02/14/19 02/14/19 02/14/19 Range/Units 14:45 14:45 14:45 WBC 7.9 (3.8-10.6) k/uL RBC 4.79 (4.30-5.90) m/uL Hgb 13.8 (13.0-17.5) gm/dL Hct 41.6 (39.0-53.0) % MCV 86.8 D (80.0-100.0) fL MCH 28.7 (25.0-35.0) pg MCHC 33.1 (31.0-37.0) g/dL RDW 13.9 (11.5-15.5) % Plt Count 258 (150-450) k/uL Neutrophils % 61 % Lymphocytes % 25 % Monocytes % 9 % Eosinophils % 3 % Basophils % 6 % Neutrophils # 4.8 (1.3-7.7) k/uL Lymphocytes # 1.9 (1.0-4.8) k/uL Monocytes # 0.7 (0-1.0) k/uL Eosinophils # 0.3 (0-0.7) k/uL Basophils # 0.5 H (0-0.2) k/uL PT (9.0-12.0) sec INR (<1.2) APTT (22.0-30.0) sec Sodium 138 (137-145) mmol/L Potassium 5.0 (3.5-5.1) mmol/L Chloride 99 (98-107) mmol/L Carbon Dioxide 33 H (22-30) mmol/L Anion Gap 6 mmol/L BUN 13 (9-20) mg/dL Creatinine 0.78 (0.66-1.25) mg/dL Est GFR (CKD-EPI)AfAm >90 (>60 ml/min/1.73 sqM) Est GFR (CKD-EPI)NonAf >90 (>60 ml/min/1.73 sqM) Glucose 106 H (74-99) mg/dL Plasma Lactic Acid Hernán (0.7-2.0) mmol/L Calcium 9.6 (8.4-10.2) mg/dL Magnesium 2.0 (1.6-2.3) mg/dL Total Bilirubin 0.5 (0.2-1.3) mg/dL AST 42 (17-59) U/L ALT 55 (21-72) U/L Alkaline Phosphatase 81 (38-126) U/L Troponin I (0.000-0.034) ng/mL NT-Pro-B Natriuret Pep 218 pg/mL Total Protein 6.9 (6.3-8.2) g/dL Albumin 3.5 (3.5-5.0) g/dL 02/14/19 02/14/19 02/14/19 Range/Units 14:45 14:45 15:57 WBC (3.8-10.6) k/uL RBC (4.30-5.90) m/uL Hgb (13.0-17.5) gm/dL Hct (39.0-53.0) % MCV (80.0-100.0) fL MCH (25.0-35.0) pg MCHC (31.0-37.0) g/dL RDW (11.5-15.5) % Plt Count (150-450) k/uL Neutrophils % % Lymphocytes % % Monocytes % % Eosinophils % % Basophils % % Neutrophils # (1.3-7.7) k/uL Lymphocytes # (1.0-4.8) k/uL Monocytes # (0-1.0) k/uL Eosinophils # (0-0.7) k/uL Basophils # (0-0.2) k/uL PT 10.1 (9.0-12.0) sec INR 0.9 (<1.2) APTT 26.4 (22.0-30.0) sec Sodium (137-145) mmol/L Potassium (3.5-5.1) mmol/L Chloride (98-107) mmol/L Carbon Dioxide (22-30) mmol/L Anion Gap mmol/L BUN (9-20) mg/dL Creatinine (0.66-1.25) mg/dL Est GFR (CKD-EPI)AfAm (>60 ml/min/1.73 sqM) Est GFR (CKD-EPI)NonAf (>60 ml/min/1.73 sqM) Glucose (74-99) mg/dL Plasma Lactic Acid Hernán 0.9 (0.7-2.0) mmol/L Calcium (8.4-10.2) mg/dL Magnesium (1.6-2.3) mg/dL Total Bilirubin (0.2-1.3) mg/dL AST (17-59) U/L ALT (21-72) U/L Alkaline Phosphatase (38-126) U/L Troponin I <0.012 (0.000-0.034) ng/mL NT-Pro-B Natriuret Pep pg/mL Total Protein (6.3-8.2) g/dL Albumin (3.5-5.0) g/dL Disposition Clinical Impression: COPD exacerbation Disposition: ADMITTED IP TO THIS HOSP Instructions (If sedation given, give patient instructions): [facility] (ED) Referrals: Boston Min MD [Primary Care Provider] - 1-2 days Time of Disposition: 17:03
[2019-02-14] MEDS ORDERED: HYDROmorphone 1 MG/ML 1 ML SYRINGE IVP STA ×2 (15:32→20:06)
[2019-02-14] MEDS ORDERED: KETOROLAC 60 MG/2 ML VIAL IVP STA (15:32)
--- NOTE | 2019-02-14 15:47 | XR ---
EXAMINATION TYPE: XR chest 2V DATE OF EXAM: 02/14/2019 COMPARISON: Prior chest x-ray 12/03/2018 HISTORY: Difficulty breathing TECHNIQUE: Frontal and lateral views of the chest are obtained. FINDINGS: There is no focal air space opacity, pleural effusion, or pneumothorax seen. The cardiac silhouette size is enlarged, stable. There is persistent elevation of right hemidiaphragm. Generator is present in the left pectoral region, there are leads in right atrium and ventricle. The osseous s tructures are intact. IMPRESSION: No acute cardiopulmonary process.
[2019-02-14 15:49] LABS: ALT 55 U/L (21-72); AST 42 U/L (17-59); African American GFR (CKD) >90 (>60 ml/min/1.73 sqM); Albumin 3.5 g/dL (3.5-5.0); Alkaline Phosphatase 81 U/L (38-126); Anion Gap 6 mmol/L; Blood Urea Nitrogen 13 mg/dL (9-20); Calcium 9.6 mg/dL (8.4-10.2); Carbon Dioxide 33 mmol/L (22-30); Chloride 99 mmol/L (98-107); Glucose 106 mg/dL (74-99); Sodium 138 mmol/L (137-145); Total Bilirubin 0.5 mg/dL (0.2-1.3); Total Protein 6.9 g/dL (6.3-8.2)
[2019-02-14 15:53] LABS: Basophils # (A) 0.5 k/uL (0-0.2); Basophils % (A) 6 %; Eosinophils # (A) 0.3 k/uL (0-0.7); Eosinophils % (A) 3 %; HCT 41.6 % (39.0-53.0); HGB 13.8 gm/dL (13.0-17.5); Lymphocytes # (A) 1.9 k/uL (1.0-4.8); Lymphocytes % (A) 25 %; MCH 28.7 pg (25.0-35.0); MCHC 33.1 g/dL (31.0-37.0); Mean Platelet Volume 7.6; Monocytes # (A) 0.7 k/uL (0-1.0); Monocytes % (A) 9 %; Neutrophils # (A) 4.8 k/uL (1.3-7.7); Neutrophils % (A) 61 %; Platelet Count 258 k/uL (150-450); RBC 4.79 m/uL (4.30-5.90); RDW 13.9 % (11.5-15.5); WBC 7.9 k/uL (3.8-10.6)
[2019-02-14 15:55] LABS: MCV 86.8 fL (80.0-100.0)
[2019-02-14 16:01] LABS: INR 0.9 (<1.2); Partial Thromboplastin Time 26.4 sec (22.0-30.0); Prothrombin Time 10.1 sec (9.0-12.0)
[2019-02-14] MEDS ORDERED: IPRATROPIUM-ALBUTEROL 3 ML NEB INHALATION STA (17:28)
[2019-02-14] MEDS ORDERED: TEMAZEPAM 15 MG CAP PO PRN (19:27)
[2019-02-14] MEDS ORDERED: ALPRAZolam 0.25 MG TAB PO PRN (19:27)
[2019-02-14] MEDS: FORMOTEROL FUMARATE 20 MCG/2 ML NEBU INHALATION SCH (19:33)
[2019-02-14] MEDS: IPRATROPIUM-ALBUTEROL 3 ML NEB INHALATION SCH (19:33)
[2019-02-14] MEDS: BUDESONIDE 1 MG/2 ML NEBU INHALATION SCH (19:33)
[2019-02-14] MEDS ORDERED: AMOXIC-POT CLAV 875-125MG 1 EACH TAB PO SCH (21:00)
[2019-02-14 21:19] LABS: Glucose,Whole Blood 235 mg/dL (75-99)
[2019-02-14] MEDS: HEPARIN SODIUM,PORCINE 5,000 UNIT/ML 1 ML VIAL SQ SCH (21:44)
[2019-02-14] MEDS: INSULIN ASPART (NovoLOG) 100 UNIT/ML VIAL SQ SCH (21:45)
[2019-02-14] MEDS: ATORVASTATIN 40 MG TAB PO SCH (21:45)
[2019-02-14] MEDS: oxyCODONE-APAP 7.5-325MG 1 EACH TAB PO SCH (21:45)
--- NOTE | 2019-02-14 22:19 | HP ---
HISTORY AND PHYSICAL CHIEF COMPLAINT: Shortness with cough and sputum. HISTORY OF PRESENT ILLNESS: This 63-year-old gentleman with a past history of CAD, COPD, CVA, TIA, hypertension, history of myocardial infarction, history of cholecystectomy, history of CAD/stent being followed by Dr. Min in the outpatient setting was complaining of shortness of breath and cough and sputum for the last several days. Patient increased sputum. The pulse ox was found to be 86% on room air. After admission to the ER, patient is being closely monitored at this time. The patient is still complaining of severe significant shortness of breath after receiving multiple breathing treatments. There is no history of fever, rigors or chills. No history of headache, loss of consciousness or seizures. PAST MEDICAL HISTORY: History of CAD, chest pain, COPD, CVA, TIA, hypertension, hyperlipidemia, myocardial infarction, history of sleep apnea. MEDICATIONS: Prior to admission, home medications are: 1. Oxycodone. 2. Percocet 1 tablet p.o. q.i.d. 3. Lipitor 40 mg q.h.s. 4. Toprol-XL 50 mg p.o. daily. 5. Cozaar 50 mg p.o. daily. 6. Imdur 60 mg p.o. daily. 7. DuoNeb t.i.d. p.r.n. 8. Lasix 40 mg b.i.d. 9. Vitamin B12 1000 mcg p.o. daily. ALLERGIES: None. FAMILY HISTORY: History of Parkinson's in the family. SOCIAL HISTORY: History of smoking, continued ongoing. No history of alcohol. REVIEW OF SYSTEMS: ENT: No diminished vision. No diminished hearing. CARDIOVASCULAR: No angina or palpitations. RESPIRATORY: As mentioned earlier. GI no nausea or vomiting. no hematuria or dysuria. NERVOUS SYSTEM: No numbness or weakness. ALLERGY/IMMUNOLOGY: No asthma or hayfever. MUSCULOSKELETAL as mentioned earlier. HEMATOLOGY/ONCOLOGY: No history of anemia. ENDOCRINE: No history of diabetes or hypothyroid. CONSTITUTIONAL: As mentioned earlier. DERMATOLOGY: Negative. RHEUMATOLOGY: Negative. PSYCHIATRY: As mentioned earlier. PHYSICAL EXAMINATION: Alert and oriented times three. Pulse is 66. Blood pressure 137/81, respiration 19, temperature normal, pulse ox 93% on 2 L. HEENT: Conjunctivae normal. Oral mucosa moist. NECK is no jugular venous distention. No lymph node enlargements. Breathing efforts are markedly increased. CARDIOVASCULAR: S1, S2 muffled. No S3, no S4. RESPIRATORY: Breath sounds diminished in the bases. Bilateral scattered rhonchi and crackles. Expiratory wheezing also present. ABDOMEN: Soft, obese, nontender. No mass palpable. LEGS: Minimal edema on the left leg. NERVOUS SYSTEM: Higher functions as mentioned earlier. Moves all 4 limbs. No focal motor or sensory deficits. SKIN: No ulcer, rash or bleeding. LYMPHATICS: No lymph nodes palpable in the neck, axillae or groin. JOINTS: No active deforming arthropathy. LABS: At this time, CBC within normal limits. Sodium 130. Potassium 5. ASSESSMENT: 1. Chronic obstructive pulmonary disease acute exacerbation with acute purulent tracheobronchitis. 2. History of coronary artery disease/ stent. 3. Chronic obstructive pulmonary disease. 4. Cerebrovascular accident/transient ischemic attack. 5. Hypertension. 6. Hyperlipidemia. 7. Myocardial infarction. 8. History of sleep apnea. 9. History of obesity hypoventilation syndrome. 10.History of pacemaker implantation. 11.History of spinal canal stenosis. 12.History of continued ongoing nicotine dependence. 13.Obesity with body mass index 46.8. RECOMMENDATIONS AND DISCUSSION: In this 63-year-old gentleman who presented with multiple medical issues, we will admit the patient to the hospital. Optimize the bronchodilator treatment. Pulmonary consultation. Empiric antibiotics. Overall prognosis guarded because of multiple complex medical issues. Further recommendations to follow. A copy of this dictation forwarded to Dr. Min who is the primary physician. MMODL / IJN: [id number] /
[2019-02-14] MEDS: IPRATROPIUM-ALBUTEROL 3 ML NEB INHALATION PRN (23:06)
[2019-02-14] MEDS: methylPREDNISolone SOD SUCCI 125 MG/2 ML VIAL IV SCH (23:48)
[2019-02-15] MEDS: KETOROLAC 30 MG/ML 1 ML VIAL IVP PRN (03:22)
[2019-02-15] MEDS: methylPREDNISolone SOD SUCCI 125 MG/2 ML VIAL IV SCH ×4 (05:49→23:53)
[2019-02-15 06:46] LABS: Glucose,Whole Blood 147 mg/dL (75-99)
[2019-02-15] MEDS: ISOSORBIDE MONONITRATE ER 60 MG TAB.ER.24H PO SCH (07:51)
[2019-02-15] MEDS: oxyCODONE-APAP 7.5-325MG 1 EACH TAB PO SCH ×4 (07:51→21:22)
[2019-02-15] MEDS: LOSARTAN 50 MG TAB PO SCH (07:51)
[2019-02-15] MEDS: CYANOCOBALAMIN 500 MCG TAB PO SCH (07:51)
[2019-02-15] MEDS: INSULIN ASPART (NovoLOG) 100 UNIT/ML VIAL SQ SCH ×4 (07:51→21:24)
[2019-02-15] MEDS: HEPARIN SODIUM,PORCINE 5,000 UNIT/ML 1 ML VIAL SQ SCH ×2 (07:51→21:24)
[2019-02-15] MEDS: PANTOPRAZOLE 40 MG TABLET PO SCH (07:51)
[2019-02-15] MEDS: FUROSEMIDE 40 MG TAB PO SCH (07:51)
[2019-02-15] MEDS: METOPROLOL SUCCINATE (ER) 50 MG TAB.ER.24H PO SCH (07:51)
[2019-02-15] MEDS: NICOTINE 14MG/24HR PATCH TRANSDERM SCH (08:04)
[2019-02-15 08:19] LABS: Basophils # (A) 0.1 k/uL (0-0.2); Basophils % (A) 1 %; Eosinophils % (A) 0 %; HCT 44.2 % (39.0-53.0); HGB 14.2 gm/dL (13.0-17.5); Lymphocytes # (A) 1.2 k/uL (1.0-4.8); Lymphocytes % (A) 15 %; MCH 28.4 pg (25.0-35.0); MCHC 32.2 g/dL (31.0-37.0); Mean Platelet Volume 6.9; Monocytes # (A) 0.2 k/uL (0-1.0); Monocytes % (A) 2 %; Neutrophils # (A) 6.4 k/uL (1.3-7.7); Neutrophils % (A) 81 %; Platelet Count 286 k/uL (150-450); RBC 5.02 m/uL (4.30-5.90); RDW 13.6 % (11.5-15.5); WBC 7.9 k/uL (3.8-10.6)
[2019-02-15 08:36] LABS: African American GFR (CKD) >90 (>60 ml/min/1.73 sqM); Anion Gap 6 mmol/L; Blood Urea Nitrogen 19 mg/dL (9-20); Calcium 9.6 mg/dL (8.4-10.2); Carbon Dioxide 32 mmol/L (22-30); Chloride 101 mmol/L (98-107); Glucose 151 mg/dL (74-99); Potassium 5.6 mmol/L (3.5-5.1); Sodium 139 mmol/L (137-145)
[2019-02-15] MEDS: BUDESONIDE 1 MG/2 ML NEBU INHALATION SCH ×2 (08:49→19:55)
[2019-02-15] MEDS: IPRATROPIUM-ALBUTEROL 3 ML NEB INHALATION SCH ×4 (08:49→19:55)
[2019-02-15] MEDS: FORMOTEROL FUMARATE 20 MCG/2 ML NEBU INHALATION SCH ×2 (08:49→19:55)
[2019-02-15] MEDS ORDERED: AZITHROMYCIN 500 MG in SODIUM CHLORIDE 0.9% 250 ML IVPB SCH (09:00)
--- NOTE | 2019-02-15 09:21 | CDI ---
Documentation Clarification Form Date: 02/15/2019 9:13:43 AM From: Marietta Giles CCS, CCDS Admit Date: 02/14/2019 5:35:00 PM Patient Name: Willy Lares Visit Number: [id number] Discharge Date: ATTENTION: The Clinical Documentation Specialists (CDI) and [facility] Coding Staff appreciate your assistance in clarifying documentation. Please respond to the clarification below the line at the bottom and electronically sign. The CDI & [facility] Coding staff will review the response and follow-up if needed. Please note: Queries are made part of the Legal Health Record. If you have any questions, please contact the author of this message via ITS. Dr. Erin Gomez: Per the ED note the patient has a history of suspected CHF & cor pulmonale. History/Risk Factors: COPD, OHS, CVA, Chronic pain syndrome with DDD & lumbar spinal stenosis, CAD with coronary stents & pacemaker. Chronic lower extremity edema. Clinical Indicators: Presented with SOB & wheezing, diagnosed with acute exacerbation of COPD & acute purulent tracheobronchitis. VS: P 71 - 74; R 22 (SOB, labored, shallow, tachypnea); BP 171/95^, PO 98 2Lnc BNP: 218 Echocardiogram Results 10/15: Moderate concentric left ventricular hypertrophy, Left ventricular systolic function low normal w/EF 50-55%. Chest X Ray: negative Home meds: po Lasix 40 mg daily. Treatment: INH Albuterol, IV Solumedrol, IV Dilaudid, IV Toradol In your professional opinion, can you please clarify the acuity and type of CHF if known? Systolic Heart Failure: o Acute o Chronic o Acute on Chronic Diastolic Heart Failure: o Acute o Chronic o Acute on Chronic Systolic & Diastolic Heart Failure: o Acute o Chronic o Acute on Chronic Heart Failure Unable to Determine Other, please specify (Last Revision: August 2017) Diastolic Heart Failure: o Chronic MTDD
[2019-02-15 10:04] VITALS: BMI 46.7
[2019-02-15 11:11] LABS: Glucose,Whole Blood 133 mg/dL (75-99)
[2019-02-15] MEDS ORDERED: SODIUM POLYSTYRENE SULFONATE 15 GM/60 ML BOTTLE PO STA (15:15)
[2019-02-15 17:18] LABS: Glucose,Whole Blood 243 mg/dL (75-99)
--- NOTE | 2019-02-15 17:41 | PN ---
PROGRESS NOTE DATE OF SERVICE: 02/15/2019. This 63-year-old gentleman who was admitted with COPD, acute exacerbation, also had acute purulent tracheobronchitis. The patient is being closely monitored. No chest pain. No palpitations. The patient is on IV steroids and bronchodilators. Pulmonary consultation underway. PHYSICAL EXAMINATION: Alert and oriented x3. Pulse 68, blood pressure 111/69, respiration 18, temperature 96.8, pulse ox 92% on 3 L. HEENT: Conjunctivae normal. NECK: No jugular venous distention. CARDIOVASCULAR SYSTEM: S1, S2 muffled. RESPIRATORY SYSTEM: Breath sounds diminished at the bases. Bilateral scattered rhonchi and coarse crackles. ABDOMEN: Soft, non-tender, obese. NERVOUS SYSTEM: No focal deficit. LABS: CBC within normal limits. Potassium 5.6. ASSESSMENT: 1. Chronic obstructive pulmonary disease, acute exacerbation, with acute purulent tracheobronchitis. 2. History of coronary artery disease and stent. 3. Mild hyperkalemia. 4. Chronic obstructive pulmonary disease. 5. History of cerebrovascular incident, transient ischemic attack. 6. Hypertension. 7. Hyperlipidemia. 8. History of myocardial infarction. 9. History of sleep apnea. 10.History of obesity hypoventilation syndrome. 11.History of pacemaker implantation. 12.History of spinal canal stenosis. 13.Continued ongoing nicotine dependence. 14.Obesity with body mass index of 46.8. RECOMMENDATIONS AND DISCUSSION: I recommend to continue current medications, continue with the monitoring, symptomatic treatment. Otherwise at this time I recommend a dose of Kayexalate; also low-potassium diet. Avoid potassium supplementations. Continue the rest of the medication, bronchodilators, steroids. Guarded prognosis. Further recommendations to follow. MMODL / IJN: [id number] /
[2019-02-15 20:14] LABS: Glucose,Whole Blood 212 mg/dL (75-99)
[2019-02-15] MEDS: ATORVASTATIN 40 MG TAB PO SCH (21:22)
[2019-02-15] MEDS: AMOXIC-POT CLAV 875-125MG 1 EACH TAB PO SCH (21:23)
--- NOTE | 2019-02-15 21:59 | CONS ---
CONSULTATION PULMONARY/CRITICAL CARE CONSULTATION: DATE OF CONSULTATION: 02/15/2019 This is a 63-year-old male who presented to the emergency department via EMS with complaints of shortness of breath. The patient apparently has a history of congestive heart failure as well as coronary artery disease. He is also heavy smoker. The patient apparently sees a visiting physician, as he is unable to get to various doctors' appointments. He does complain of cough and some green phlegm production. Apparently a number of people around him have been sick. He has had some chills. No fever per se. He has been short of breath. He does have some lower extremity edema. His saturation on room air was 86%. He does use oxygen at home 20/12. Apparently he was advised to come to the hospital to be evaluated. He was admitted to the hospital with a diagnosis of difficulty breathing, shortness of breath, likely multifactorial, in part related to underlying COPD exacerbation, possible purulent tracheobronchitis versus bronchopneumonia and possible CHF. The patient is feeling a bit better today. He states he is less short of breath. Still with lots of chest congestion, coughing, wheezing and tightness in his chest. He is coughing up occasional yellow-green phlegm. No fever or chills. No nausea, vomiting or diarrhea. Denies any chest pain or chest discomfort. HOME MEDICATIONS: His home medications include: 1. Imdur. 2. Lipitor. 3. Lasix. 4. Vitamin B12. 5. DuoNeb. 6. Toprol. 7. Percocet. 8. He is also taking Cozaar. ALLERGIES: DENIED. MEDICAL HISTORY: His medical history includes: 1. CAD. 2. Angina pectoris. 3. COPD. 4. CVA. 5. Hyperlipidemia. 6. Hypertension. 7. Myocardial infarction. 8. DJD. 9. Sleep apnea syndrome. 10.He also may suffer from pickwickian syndrome. 11.In addition, he has a history of cor pulmonale, status post permanent pacemaker placement. 12.Chronic back pain with degenerative disc disease and spinal stenosis. 13.L2 through L5 vertebral fractures. 14.Chronic lower extremity edema. 15.Diverticular disease. 16.A number of other medical problems. SURGICAL HISTORY: His surgical history includes: 1. Heart catheterization with stent placement. 2. Hernia repair. 3. Pacemaker insertion. 4. Umbilical hernia repair. 5. Colonoscopy. 6. Circumcision. 7. Right eye surgery. SOCIAL HISTORY: Positive for ongoing tobacco use. He has been smoking for a number of years. He continues to smoke. He denies illicit drug use or alcohol use. FAMILY HISTORY: Positive for father with Parkinson's disease who at age 84. Mother had a history of myocardial infarction and had 3-vessel bypass grafting. She apparently at an early age from a massive myocardial infarction. REVIEW OF SYSTEMS: CONSTITUTIONAL: Negative. NEUROLOGIC: Negative. HEENT: Negative. CARDIOVASCULAR: Negative. PULMONARY: Shortness of breath, chest tightness, wheezing, cough, chest congestion, occasional phlegm production. GI: Negative. : Negative. RHEUMATOLOGIC: Negative. IMMUNOLOGIC: Negative. ENDOCRINOLOGIC: Negative. DERMATOLOGIC: Negative. PHYSICAL EXAMINATION: VITAL SIGNS: Current vital signs are reviewed. Temperature is 98, heart rate 65, respiratory rate 18, blood pressure 137/76, mean 96, 3-liter saturation 95%. GENERAL APPEARANCE: He appears in no acute distress. There is no conversational dyspnea, use of accessory muscles or audible wheezing. HEENT: HEENT examination is grossly unremarkable. Nasal oxygen in place. NECK: Supple. Full range of motion. No adenopathy. Neck veins are flat. CARDIOVASCULAR: Cardiovascular examination reveals regular rhythm and rate. Heart sounds are distant. S1, S2 normal. No distinct murmur noted. LUNGS: Lungs reveal coarse inspiratory and expiratory rhonchi. There are no crackles. Mild expiratory wheezes. Breath sounds are equal bilaterally but diminished throughout. ABDOMEN: Obese. Bowel sounds are heard. EXTREMITIES: Extremities reveal some chronic edema to the lower extremities. There are some chronic venostasis changes and hyperpigmentation. No cyanosis or clubbing. SKIN: Without rash. NEUROLOGIC: Neurologic examination is nonfocal. LABS: Reviewed. White count 7.9, hemoglobin 14.2, hematocrit 44.2, platelet count 286,000. PT, INR, PTT all normal. Sodium 139, potassium 5.6, chloride 101, CO2 32, anion gap 6. BUN and creatinine were 19 and 0.78. The rest of the labs look okay. N-terminal proBNP 218. Troponin was less than 0.012. IMAGING: A chest x-ray was done. It shows no significant acute cardiopulmonary abnormality. CURRENT MEDICATIONS: Medications are reviewed. He is on: 1. Xanax. 2. Lipitor. 3. Zithromax. 4. Pulmicort. 5. Rocephin. 6. Vitamin B12. 7. Formoterol. 8. Lasix. 9. Heparin. 10.Insulin. 11.DuoNeb. 12.Imdur. 13.Losartan. 14.Solu-Medrol. 15.Metoprolol. 16.Nicotine. 17.Oxycodone. 18.Protonix. 19.Restoril. ASSESSMENT: 1. Shortness of breath, likely related primarily to chronic obstructive pulmonary disease exacerbation, as the patient continues to smoke. No clear-cut evidence of any significant heart failure at this time. 2. Ongoing tobacco use with nicotine addiction. 3. Sleep apnea syndrome, currently maintained on CPAP. 4. Probable pickwickian syndrome. 5. History of hyperlipidemia. 6. History of coronary artery disease. 7. History of angina. 8. History of cerebrovascular accident. 9. Hypertension. 10.Previous myocardial infarction. 11.Degenerative joint disease. 12.History of congestive heart failure. 13.Degenerative disc disease. 14.L2 through L5 vertebral compression fracture. 15.Chronic lower extremity edema. 16.Multiple orthopedic issues. PLAN: Please see my orders. The patient's treatment will be primarily directed at the pulmonary system. He should get Solu-Medrol, Pulmicort and Perforomist, 1 mg and 20 mcg, respectively, and DuoNeb q.i.d. and p.r.n. In addition, the patient will likely benefit from oral antibiotics. No clear-cut evidence of pneumonia on chest x-ray. He does need to be counseled about the importance of smoking cessation and be given a nicotine patch. Additional recommendations and suggestions are forthcoming. I asked him about seeing us in the office, and he states that he probably will not because "it is hard for me to get around." MMODL / IJN: [id number] /
[2019-02-16] MEDS: methylPREDNISolone SOD SUCCI 125 MG/2 ML VIAL IV SCH ×4 (05:50→23:48)
[2019-02-16] MEDS: BUDESONIDE 1 MG/2 ML NEBU INHALATION SCH ×2 (05:59→19:46)
[2019-02-16] MEDS: IPRATROPIUM-ALBUTEROL 3 ML NEB INHALATION SCH ×4 (05:59→19:46)
[2019-02-16 07:00] LABS: Glucose,Whole Blood 211 mg/dL (75-99)
[2019-02-16 07:49] LABS: Basophils # (A) 0.1 k/uL (0-0.2); Basophils % (A) 1 %; Eosinophils % (A) 0 %; HCT 42.9 % (39.0-53.0); HGB 13.8 gm/dL (13.0-17.5); Hypochromasia Slight; Lymphocytes # (A) 1.4 k/uL (1.0-4.8); Lymphocytes % (A) 9 %; MCH 28.9 pg (25.0-35.0); MCHC 32.3 g/dL (31.0-37.0); MCV 89.4 fL (80.0-100.0); Monocytes # (A) 0.5 k/uL (0-1.0); Monocytes % (A) 3 %; Neutrophils # (A) 13.7 k/uL (1.3-7.7); Neutrophils % (A) 87 %; Platelet Count 318 k/uL (150-450); RBC 4.79 m/uL (4.30-5.90); RDW 13.8 % (11.5-15.5); WBC 15.8 k/uL (3.8-10.6)
[2019-02-16] MEDS: FORMOTEROL FUMARATE 20 MCG/2 ML NEBU INHALATION SCH ×2 (08:05→19:46)
[2019-02-16 08:10] LABS: African American GFR (CKD) >90 (>60 ml/min/1.73 sqM); Anion Gap 7 mmol/L; Blood Urea Nitrogen 25 mg/dL (9-20); Calcium 9.6 mg/dL (8.4-10.2); Carbon Dioxide 33 mmol/L (22-30); Chloride 99 mmol/L (98-107); Glucose 213 mg/dL (74-99); Potassium 5.4 mmol/L (3.5-5.1); Sodium 139 mmol/L (137-145)
[2019-02-16] MEDS: LOSARTAN 50 MG TAB PO SCH (08:11)
[2019-02-16] MEDS: FUROSEMIDE 40 MG TAB PO SCH (08:11)
[2019-02-16] MEDS: CYANOCOBALAMIN 500 MCG TAB PO SCH (08:11)
[2019-02-16] MEDS: PANTOPRAZOLE 40 MG TABLET PO SCH (08:11)
[2019-02-16] MEDS: oxyCODONE-APAP 7.5-325MG 1 EACH TAB PO SCH ×4 (08:11→21:20)
[2019-02-16] MEDS: INSULIN ASPART (NovoLOG) 100 UNIT/ML VIAL SQ SCH ×4 (08:12→21:20)
[2019-02-16] MEDS: HEPARIN SODIUM,PORCINE 5,000 UNIT/ML 1 ML VIAL SQ SCH ×2 (08:12→21:20)
[2019-02-16] MEDS: NICOTINE 14MG/24HR PATCH TRANSDERM SCH (08:12)
[2019-02-16] MEDS: AMOXIC-POT CLAV 875-125MG 1 EACH TAB PO SCH ×2 (08:13→21:20)
[2019-02-16] MEDS: METOPROLOL SUCCINATE (ER) 50 MG TAB.ER.24H PO SCH (08:13)
[2019-02-16] MEDS: ISOSORBIDE MONONITRATE ER 60 MG TAB.ER.24H PO SCH (08:14)
[2019-02-16 11:18] LABS: Glucose,Whole Blood 244 mg/dL (75-99)
--- NOTE | 2019-02-16 11:39 | P.PN ---
Subjective Progress Note Date: 02/16/19 Principal diagnosis: Acute exacerbation of chronic obstructive pulmonary disease. Patient is seen today 02/16/2019 in follow-up on the regular medical floor. He is awake and alert in no acute distress. He is breathing quite a bit better today as compared to yesterday. Maintaining O2 saturations in the 90s on 2 L/m per nasal cannula. He is afebrile. Hemodynamically stable. Blood culture reveals no growth. White count 15.8. Hemoglobin 13.8. Creatinine 0.95. He has been maintained on DuoNeb inhalations, Pulmicort and Perforomist inhalations, IV Solu-Medrol. NicoDerm patch is in place. Objective - Vital Signs Vital signs: Vital Signs Temp 97.8 F 02/16/19 05:00 Pulse 96 02/16/19 11:23 Resp 20 02/16/19 08:00 BP 130/85 02/16/19 05:00 Pulse Ox 94 L 02/16/19 05:00 Intake & Output 02/15/19 02/16/19 02/16/19 18:59 06:59 18:59 Intake Total 300 Output Total 500 850 Balance -200 -850 Weight 156.489 kg Intake: Intake, IV Titration 300 Amount Azithromycin 500 mg In 250 Sodium Chloride 0.9% 250 ml @ 250 mls/hr IVPB DAILY KARINA Rx#:[id number] cefTRIAXone 1 gm In 50 Sodium Chloride 0.9% 50 ml @ 100 mls/hr IVPB Q24HR KARINA Rx#:[id number] Output: Urine 500 850 Other: Voiding Method Urinal Urinal # Voids 2 1 - Exam GENERAL EXAM: Alert, pleasant 63-year-old gentleman, comfortable in no apparent distress. HEAD: Normocephalic. EYES: Normal reaction of pupils, equal size. NOSE: Clear with pink turbinates. THROAT: No erythema or exudates. NECK: No masses, no JVD. CHEST: No chest wall deformity. LUNGS: Equal air entry with end expiratory wheeze, diminished CVS: S1 and S2 normal with no audible murmur, regular rhythm. ABDOMEN: No hepatosplenomegaly, normal bowel sounds, no guarding or rigidity. SPINE: No scoliosis or deformity SKIN: No rashes CENTRAL NERVOUS SYSTEM: No focal deficits, tone is normal in all 4 extremities. EXTREMITIES: Changes of chronic venous stasis of lower extremities. There is no peripheral edema. No clubbing, no cyanosis. Peripheral pulses are intact. - Labs CBC & Chem 7: 02/16/19 07:06 02/16/19 07:06 Labs: Abnormal Lab Results - Last 24 Hours (Table) 02/15/19 02/15/19 02/16/19 Range/Units 17:13 20:13 06:58 WBC (3.8-10.6) k/uL Neutrophils # (1.3-7.7) k/uL Potassium (3.5-5.1) mmol/L Carbon Dioxide (22-30) mmol/L BUN (9-20) mg/dL Glucose (74-99) mg/dL POC Glucose (mg/dL) 243 H 212 H 211 H (75-99) mg/dL 02/16/19 02/16/19 02/16/19 Range/Units 07:06 07:06 11:16 WBC 15.8 H (3.8-10.6) k/uL Neutrophils # 13.7 H (1.3-7.7) k/uL Potassium 5.4 H (3.5-5.1) mmol/L Carbon Dioxide 33 H (22-30) mmol/L BUN 25 H (9-20) mg/dL Glucose 213 H (74-99) mg/dL POC Glucose (mg/dL) 244 H (75-99) mg/dL Microbiology - Last 24 Hours (Table) 02/14/19 16:05 Blood Culture - Preliminary Blood No Growth after 24 hours Assessment and Plan Assessment: Impression: #1 Acute exacerbation of oxygen dependent chronic obstructive pulmonary disease. #2 Chronic and ongoing tobacco dependence. #3 History of CVA. #4 History of coronary artery disease with previous stent placement. #5 Hypertension. #6 Hyperlipidemia. #7 Obstructive sleep apnea. #8 Morbid obesity with obesity/hypoventilation syndrome/pickwickian syndrome. #9 Chronic back pain with degenerative disc disease and spinal stenosis. #10 Chronic lower extremity edema. #11 Diverticular disease. Plan: The patient was seen and evaluated by Dr. Clemons. He is stable from the pu lmonary standpoint and could be discharged home today. He should complete prednisone burst and taper starting at 40 mg daily for 4 days. Continue his home pulmonary medications.. Continue home oxygen. He is followed by a visiting physician. I, the cosigning physician, performed a history & physical examination of the patient. Lungs sounds with faint end expiratory wheeze. Maintaining good O2 saturations in the 90s on 2 L/m per nasal cannula. I discussed the assessment and plan of care with my nurse practitioner, Piper Albarado. I attest to the above note as dictated by her.
--- NOTE | 2019-02-16 15:52 | P.DS ---
Providers Date of admission: 02/14/19 17:35 Expected date of discharge: 02/16/19 Attending physician: Erin Gomez Consults: 02/14/19 17:35 Consult Physician Routine Consulting Provider: Miller Clemons Consult Reason/Comments: COPD exacerbation Do you want consulting provider notified?: Yes Primary care physician: [facility] Course: 63-year-old male who presents emergency Department with a past medical history significant for congestive heart failure and coronary artery disease with 4 stents placed. Patient comes in today stating he has been coughing a lot and c oughing up a lot of green sputum a lot of people around him are sick. Patient states he has had some chills but never took his temperature. Patient states he also been short of breath when his doctor saw him his pulse ox was 86% on room air. Patient states he advised him to come to the hospital. Patient states he's had no chest pain or palpitations just a lot of cough and sputum production and shortness of breath per patient denies any abdominal pain. Patient denies any back pain. Patient denies any vomiting or diarrhea. Patient denies any swelling to the legs or calf tenderness. Patient is seen today 02/16/2019 in follow-up on the regular medical floor. He is awake and alert in no acute distress. He is breathing quite a bit better today as compared to yesterday. Maintaining O2 saturations in the 90s on 2 L/m per nasal cannula. He is afebrile. Hemodynamically stable. Blood culture reveals no growth. White count 15.8. Hemoglobin 13.8. Creatinine 0.95. He has been maintained on DuoNeb inhalations, Pulmicort and Perforomist inhalations, IV Solu-Medrol. NicoDerm patch is in place. Patient is stable on treatment with bronchodilator and Pulmicort nebulizer treatments; continue with steroids which will be switching to oral; cleared for discharge per pulmonary service Plan - Discharge Summary Discharge Rx Participant: No New Discharge Prescriptions: New Amoxic-Pot Clav 875-125Mg [Augmentin 875-125] 1 each PO Q12HR #10 tab predniSONE See Taper PO DIRECTED 12 Days #30 tab Continue Isosorbide Mononitrate ER [Imdur] 60 mg PO DAILY Losartan [Cozaar] 50 mg PO DAILY #30 tab Furosemide [Lasix] 40 mg PO DAILY Atorvastatin [Lipitor] 40 mg PO HS Ipratropium-Albuterol Nebulize [Duoneb 0.5 mg-3 mg/3 ml Soln] 3 ml INHALATION RT-TID PRN PRN Reason: Shortness Of Breath Cyanocobalamin (Vitamin B-12) [Vitamin B-12] 1,000 mcg PO DAILY oxyCODONE HCL/ACETAMINOPHEN [Percocet 7.5-325 mg] 1 tab PO QID Metoprolol Succinate [Toprol XL] 50 mg PO DAILY Discharge Medication List Isosorbide Mononitrate ER [Imdur] 60 mg PO DAILY 04/25/17 [History] Losartan [Cozaar] 50 mg PO DAILY #30 tab 04/27/17 [Rx] Atorvastatin [Lipitor] 40 mg PO HS 02/10/18 [History] Furosemide [Lasix] 40 mg PO DAILY 02/10/18 [History] Cyanocobalamin (Vitamin B-12) [Vitamin B-12] 1,000 mcg PO DAILY 04/16/18 [History] Ipratropium-Albuterol Nebulize [Duoneb 0.5 mg-3 mg/3 ml Soln] 3 ml INHALATION RT-TID PRN 04/16/18 [History] Metoprolol Succinate [Toprol XL] 50 mg PO DAILY 02/14/19 [History] oxyCODONE HCL/ACETAMINOPHEN [Percocet 7.5-325 mg] 1 tab PO QID 02/14/19 [History] Amoxic-Pot Clav 875-125Mg [Augmentin 875-125] 1 each PO Q12HR #10 tab 02/16/19 [Rx] predniSONE See Taper PO DIRECTED 12 Days #30 tab 02/16/19 [Rx] Follow up Appointment(s)/Referral(s): Boston Min MD [Primary Care Provider] - 1-2 days Patient Instructions/Handouts: Asthma in Children (ED) Activity/Diet/Wound Care/Special Instructions: pt set up with [facility] care pt will be sent home with home o2 at 2L s/t hypoxcemia s/t copd. Discharge Disposition: HOME SELF-CARE
[2019-02-16 16:58] LABS: Glucose,Whole Blood 150 mg/dL (75-99)
[2019-02-16 19:52] LABS: Glucose,Whole Blood 192 mg/dL (75-99)
[2019-02-16] MEDS: ATORVASTATIN 40 MG TAB PO SCH (21:20)
[2019-02-16] MEDS: IPRATROPIUM-ALBUTEROL 3 ML NEB INHALATION PRN (23:45)
[2019-02-16] MEDS: KETOROLAC 30 MG/ML 1 ML VIAL IVP PRN (23:48)
[2019-02-17 04:59] VITALS: BP 147/87; RESP 18; TEMP 97.5
[2019-02-17] MEDS: methylPREDNISolone SOD SUCCI 125 MG/2 ML VIAL IV SCH (05:49)
[2019-02-17] MEDS: KETOROLAC 30 MG/ML 1 ML VIAL IVP PRN (05:49)
[2019-02-17 07:52] LABS: Basophils # (A) 0.1 k/uL (0-0.2); Basophils % (A) 1 %; Eosinophils % (A) 0 %; HCT 41.3 % (39.0-53.0); HGB 13.2 gm/dL (13.0-17.5); Lymphocytes % (A) 7 %; MCH 28.7 pg (25.0-35.0); MCV 89.8 fL (80.0-100.0); Mean Platelet Volume 7.2; Monocytes # (A) 0.5 k/uL (0-1.0); Monocytes % (A) 3 %; Neutrophils # (A) 13.5 k/uL (1.3-7.7); Neutrophils % (A) 89 %; Platelet Count 275 k/uL (150-450); RDW 13.9 % (11.5-15.5); WBC 15.2 k/uL (3.8-10.6)
[2019-02-17] MEDS: IPRATROPIUM-ALBUTEROL 3 ML NEB INHALATION SCH (08:00)
[2019-02-17] MEDS: BUDESONIDE 1 MG/2 ML NEBU INHALATION SCH (08:00)
[2019-02-17] MEDS: FORMOTEROL FUMARATE 20 MCG/2 ML NEBU INHALATION SCH (08:00)
[2019-02-17 08:01] LABS: Glucose,Whole Blood 255 mg/dL (75-99)
[2019-02-17] MEDS: LOSARTAN 50 MG TAB PO SCH (08:10)
[2019-02-17] MEDS: oxyCODONE-APAP 7.5-325MG 1 EACH TAB PO SCH (08:10)
[2019-02-17] MEDS: NICOTINE 14MG/24HR PATCH TRANSDERM SCH (08:10)
[2019-02-17] MEDS: CYANOCOBALAMIN 500 MCG TAB PO SCH (08:10)
[2019-02-17 08:11] LABS: African American GFR (CKD) >90 (>60 ml/min/1.73 sqM); Anion Gap 5 mmol/L; Blood Urea Nitrogen 31 mg/dL (9-20); Calcium 9.4 mg/dL (8.4-10.2); Carbon Dioxide 32 mmol/L (22-30); Chloride 97 mmol/L (98-107); Glucose 262 mg/dL (74-99); Potassium 5.3 mmol/L (3.5-5.1); Sodium 134 mmol/L (137-145)
[2019-02-17] MEDS: PANTOPRAZOLE 40 MG TABLET PO SCH (08:11)
[2019-02-17] MEDS: FUROSEMIDE 40 MG TAB PO SCH (08:11)
[2019-02-17] MEDS: AMOXIC-POT CLAV 875-125MG 1 EACH TAB PO SCH (08:11)
[2019-02-17] MEDS: INSULIN ASPART (NovoLOG) 100 UNIT/ML VIAL SQ SCH (08:11)
[2019-02-17] MEDS: METOPROLOL SUCCINATE (ER) 50 MG TAB.ER.24H PO SCH (08:12)
[2019-02-17] MEDS: HEPARIN SODIUM,PORCINE 5,000 UNIT/ML 1 ML VIAL SQ SCH (08:12)
[2019-02-17] MEDS: ISOSORBIDE MONONITRATE ER 60 MG TAB.ER.24H PO SCH (08:12)
[2019-02-17 09:26] VITALS: PULSE 74
== END 2019-02-17 10:47 | disposition home health service (06) | DRG 191 ==
LOC: EC 14:40 → 3NMEDONC 17:35
PROVIDERS: ADMIT Hospitalist; ATTEND Hospitalist
DX: J44.1 Chronic obstructive pulmonary disease with (acute) exacerbation (principal); E66.2 Morbid (severe) obesity with alveolar hypoventilation; I50.32 Chronic diastolic (congestive) heart failure; Z68.42 Body mass index [BMI] 45.0-49.9, adult; J44.0 Chronic obstructive pulmonary disease with (acute) lower respiratory infection; I11.0 Hypertensive heart disease with heart failure; I27.81 Cor pulmonale (chronic); Z99.81 Dependence on supplemental oxygen; E87.5 Hyperkalemia; J20.9 Acute bronchitis, unspecified; E78.5 Hyperlipidemia, unspecified; F17.200 Nicotine dependence, unspecified, uncomplicated; G89.29 Other chronic pain; I25.10 Atherosclerotic heart disease of native coronary artery without angina pectoris; I25.2 Old myocardial infarction; K57.90 Diverticulosis of intestine, part unspecified, without perforation or abscess without bleeding; M19.90 Unspecified osteoarthritis, unspecified site; M48.00 Spinal stenosis, site unspecified; M54.9 Dorsalgia, unspecified; Z90.49 Acquired absence of other specified parts of digestive tract; Z95.5 Presence of coronary angioplasty implant and graft; Z95.0 Presence of cardiac pacemaker; Z86.73 Personal history of transient ischemic attack (TIA), and cerebral infarction without residual deficits; Z79.899 Other long term (current) drug therapy; Z79.891 Long term (current) use of opiate analgesic; Z82.0 Family history of epilepsy and other diseases of the nervous system; Z82.49 Family history of ischemic heart disease and other diseases of the circulatory system
CPT/HCPCS: 36415; 71046; 80048; 80053; 83605; 83735; 83880; 84484; 85025; 85610; 85730; 87040; 93005; 94640; 94760; 96374; 96375; 99285

== ENCOUNTER 2019-03-20 20:31 | Inpatient (IN) | payer MEDICARE ==
[2019-03-20] MEDS ORDERED: ONDANSETRON 4 MG/2 ML VIAL IVP STA (20:42)
[2019-03-20] MEDS ORDERED: MORPHINE SULFATE 4 MG/ML SYRINGE IVP STA (20:42)
[2019-03-20 21:24] LABS: Basophils # (A) 0.1 k/uL (0-0.2); Basophils % (A) 1 %; Eosinophils # (A) 0.1 k/uL (0-0.7); Eosinophils % (A) 1 %; HCT 41.9 % (39.0-53.0); HGB 13.9 gm/dL (13.0-17.5); Lymphocytes # (A) 2.4 k/uL (1.0-4.8); Lymphocytes % (A) 25 %; MCH 29.1 pg (25.0-35.0); MCHC 33.1 g/dL (31.0-37.0); MCV 87.9 fL (80.0-100.0); Monocytes # (A) 0.6 k/uL (0-1.0); Monocytes % (A) 6 %; Neutrophils # (A) 6.3 k/uL (1.3-7.7); Neutrophils % (A) 66 %; Platelet Count 208 k/uL (150-450); RBC 4.77 m/uL (4.30-5.90); RDW 14.6 % (11.5-15.5); WBC 9.6 k/uL (3.8-10.6)
[2019-03-20 21:35] LABS: ALT 38 U/L (21-72); AST 27 U/L (17-59); African American GFR (CKD) >90 (>60 ml/min/1.73 sqM); Albumin 3.4 g/dL (3.5-5.0); Alkaline Phosphatase 77 U/L (38-126); Anion Gap 7 mmol/L; Blood Urea Nitrogen 14 mg/dL (9-20); Calcium 8.8 mg/dL (8.4-10.2); Carbon Dioxide 28 mmol/L (22-30); Chloride 101 mmol/L (98-107); Glucose 100 mg/dL (74-99); Magnesium 1.7 mg/dL (1.6-2.3); Non-African American GFR(CKD) 86 (>60 ml/min/1.73 sqM); Potassium 4.5 mmol/L (3.5-5.1); Sodium 136 mmol/L (137-145); Total Bilirubin 0.7 mg/dL (0.2-1.3); Total Protein 6.4 g/dL (6.3-8.2)
[2019-03-20 21:38] LABS: Prothrombin Time 10.5 sec (9.0-12.0)
--- NOTE | 2019-03-20 21:52 | XR ---
EXAMINATION TYPE: XR chest 2V DATE OF EXAM: 03/20/2019 COMPARISON: 02/14/2019 HISTORY: Difficulty breathing TECHNIQUE: Frontal and lateral views of the chest are obtained. FINDINGS: There is no heart failure nor confluent pneumonic infiltrate. Costophrenic angles are lenora r. There is left axillary pacemaker. There is no pleural effusion. IMPRESSION: No active cardiopulmonary disease. No change compared to last exam.
--- NOTE | 2019-03-20 22:16 | ED ---
General Adult HPI - General Source: patient, EMS, RN notes reviewed Mode of arrival: EMS Limitations: no limitations <Nando Ramírez - Last Filed: 03/20/19 22:52> <Aparna Tate - Last Filed: 03/21/19 06:20> - General Chief complaint: Shortness of Breath Stated complaint: YUMIKO Time Seen by Provider: 03/20/19 20:36 - History of Present Illness Initial comments: this a 63-year-old male presents emergency from chief complaint of dyspnea. Patient states progressive dyspnea over the day. Patient does have underlying COPD. Patient states that he's had increased wheezing. Patient was given 2 DuoNeb times and Solu-Medrol via EMS and which she somewhat improved. Patient does admit that he a stent removed at [facility] yesterday. Patient states that he had stents in hisbile duct secondary to palpitations from cholecystectomy. Patient states that there iwas a large amount ofscar tissueand admits he is h aving some discomfort from this. He denies any nausea vomiting. Denies fevers or chills. Patient does have productive cough. (Nando Ramírez) - Related Data Home Medications Medication Instructions Recorded Confirmed Isosorbide Mononitrate ER [Imdur] 60 mg PO DAILY 04/25/17 03/20/19 Atorvastatin [Lipitor] 40 mg PO HS 02/10/18 03/20/19 Furosemide [Lasix] 40 mg PO DAILY 02/10/18 03/20/19 Cyanocobalamin (Vitamin B-12) 1,000 mcg PO DAILY 04/16/18 03/20/19 [Vitamin B-12] Ipratropium-Albuterol Nebulize 3 ml INHALATION RT-TID PRN 04/16/18 03/20/19 [Duoneb 0.5 mg-3 mg/3 ml Soln] Metoprolol Succinate [Toprol XL] 50 mg PO DAILY 02/14/19 03/20/19 oxyCODONE HCL/ACETAMINOPHEN 1 tab PO QID 02/14/19 03/20/19 [Percocet 7.5-325 mg] Albuterol Nebulized [Ventolin 2.5 mg INHALATION RT-Q6H PRN 03/20/19 03/20/19 Nebulized] Aspirin EC [Ecotrin] 325 mg PO DAILY 03/20/19 03/20/19 Clopidogrel [Plavix] 75 mg PO DAILY 03/20/19 03/20/19 Sennosides-Docusate Sodium 1 tab PO BID 03/20/19 03/20/19 [Senokot-S] Previous Rx's Medication Instructions Recorded Losartan [Cozaar] 50 mg PO DAILY #30 tab 04/27/17 Allergies Allergy/AdvReac Type Severity Reaction Status Date / Time No Known Allergies Allergy Verified 03/20/19 20:57 Review of Systems ROS Other: All systems not noted in ROS Statement are negative. <Nando Ramírez - Last Filed: 03/20/19 22:52> ROS Other: All systems not noted in ROS Statement are negative. <Aparna Tate - Last Filed: 03/21/19 06:20> ROS Statement: Those systems with pertinent positive or pertinent negative responses have been documented in the HPI. Past Medical History Past Medical History: Coronary Artery Disease (CAD), Chest Pain / Angina, COPD, CVA/TIA, Hyperlipidemia, Hypertension, Myocardial Infarction ([place]), Osteoarthritis (OA), Respiratory Disorder, Sleep Apnea/CPAP/BIPAP Additional Past Medical History / Comment(s): obesity, obesity hypoventilation syndrome, suspected CHF and cor pulmonale, previous history of defibrillator placement, CVA in 2004, chronic back pain secondary to DDD and spinal canal stenosis, history of vertebral fracture L2 through L5, chronic lower extremity edema, diverticular disease, L knee fx in past and torn R rotator cuff, cellulitis, recent hospitalization for gallbladder issues, states doesn't normally see private duty aide, just visiting physician although saw one in hospital recently Last Myocardial Infarction Date:: 2011 History of Any Multi-Drug Resistant Organisms: None Reported Past Surgical History: Cholecystectomy, Heart Catheterization With Stent, Hernia Repair, Pacemaker Additional Past Surgical History / Comment(s): PTCA with stent (4 total), 04/05/13 [employer] pacemaker, umbilical hernia repair, colonoscopy, circumcision, R eye surgery for strabismus, gallbladder stents (awaiting removal) Past Anesthesia/Blood Transfusion Reactions: No Reported Reaction Date of Last Stent Placement:: 2012 Type of Cardiac Device: Permanent Pacemaker Device Placement Date:: 04/05/13 Past Psychological History: No Psychological Hx Reported Smoking Status: Current some day smoker Past Alcohol Use History: None Reported Past Drug Use History: None Reported - Past Family History Father Family Medical History: Musculoskeletal Disorder, Neurologic Disorder Additional Family Medical History / Comment(s): Father had parkinson's dx and at age 84 yrs. Mother Family Medical History: Myocardial Infarction ([place]) Additional Family Medical History / Comment(s): Mother had 3 vessel CABG. She of a massive [place] at the age of 53 yrs. <Nando Ramírez M - Last Filed: 03/20/19 22:52> General Exam General appearance: alert, in no apparent distress Head exam: Present: atraumatic, normocephalic, normal inspection Eye exam: Present: normal appearance, PERRL, EOMI. Absent: scleral icterus, conjunctival injection, periorbital swelling ENT exam: Present: normal exam, normal oropharynx, mucous membranes moist Neck exam: Present: normal inspection, full ROM. Absent: tenderness, meningismus, lymphadenopathy Respiratory exam: Present: respiratory distress, wheezes, decreased breath sounds. Absent: normal lung sounds bilaterally, rales, rhonchi, stridor Cardiovascular Exam: Present: regular rate, normal rhythm, normal heart sounds. Absent: systolic murmur, diastolic murmur, rubs, gallop, clicks GI/Abdominal exam: Present: soft, tenderness (mildm), normal bowel sounds. Absent: distended, guarding, rebound, rigid Back exam: Absent: CVA tenderness (R), CVA tenderness (L) Neurological exam: Present: alert, oriented X3 Skin exam: Present: warm, dry, intact, normal color. Absent: rash <Nando Ramírez M - Last Filed: 03/20/19 22:52> Course Vital Signs 03/20/19 03/20/19 03/20/19 20:37 20:43 23:44 Temperature 99.1 F 98.7 F Pulse Rate 77 68 Respiratory 20 22 20 Rate Blood Pressure 112/67 140/86 O2 Sat by Pulse 96 94 L Oximetry 03/21/19 03/21/19 03/21/19 00:08 00:24 04:44 Temperature 98.2 F Pulse Rate 68 72 65 Respiratory 20 Rate Blood Pressure 151/92 O2 Sat by Pulse 94 L Oximetry EKG Findings - EKG Comments: EKG Findings:: EKG interpreted by me at 20:59 normal sinus rhythm rate of 82 PA 144 04 QT/QTC 358/418 <Nando Ramírez - Last Filed: 03/20/19 22:52> Medical Decision Making - Lab Data Result diagrams: 03/20/19 20:55 03/20/19 20:55 <Nando Ramírez - Last Filed: 03/20/19 22:52> - Lab Data Result diagrams: 03/20/19 20:55 03/20/19 20:55 <Aparna Tate - Last Filed: 03/21/19 06:20> - Medical Decision Making patient's had persistent bronchospasm, wheezing, dyspnea in the room. Patient did have mild improvement after treatment which she is given 2 DuoNeb is by EMS. Patient given additional treatment emergency department. Patient will be admitted for IV steroids, breathing treatment. (Nando Ramírez) - Lab Data Lab Results 03/20/19 03/20/19 03/20/19 Range/Units 20:55 20:55 20:55 WBC 9.6 (3.8-10.6) k/uL RBC 4.77 (4.30-5.90) m/uL Hgb 13.9 (13.0-17.5) gm/dL Hct 41.9 (39.0-53.0) % MCV 87.9 (80.0-100.0) fL MCH 29.1 (25.0-35.0) pg MCHC 33.1 (31.0-37.0) g/dL RDW 14.6 (11.5-15.5) % Plt Count 208 (150-450) k/uL Neutrophils % 66 % Lymphocytes % 25 % Monocytes % 6 % Eosinophils % 1 % Basophils % 1 % Neutrophils # 6.3 (1.3-7.7) k/uL Lymphocytes # 2.4 (1.0-4.8) k/uL Monocytes # 0.6 (0-1.0) k/uL Eosinophils # 0.1 (0-0.7) k/uL Basophils # 0.1 (0-0.2) k/uL PT (9.0-12.0) sec INR (<1.2) APTT (22.0-30.0) sec Sodium 136 L (137-145) mmol/L Potassium 4.5 (3.5-5.1) mmol/L Chloride 101 (98-107) mmol/L Carbon Dioxide 28 (22-30) mmol/L Anion Gap 7 mmol/L BUN 14 (9-20) mg/dL Creatinine 0.95 (0.66-1.25) mg/dL Est GFR (CKD-EPI)AfAm >90 (>60 ml/min/1.73 sqM) Est GFR (CKD-EPI)NonAf 86 (>60 ml/min/1.73 sqM) Glucose 100 H (74-99) mg/dL Plasma Lactic Acid Hernán 0.9 (0.7-2.0) mmol/L Calcium 8.8 (8.4-10.2) mg/dL Magnesium 1.7 (1.6-2.3) mg/dL Total Bilirubin 0.7 (0.2-1.3) mg/dL AST 27 (17-59) U/L ALT 38 (21-72) U/L Alkaline Phosphatase 77 (38-126) U/L Troponin I (0.000-0.034) ng/mL NT-Pro-B Natriuret Pep pg/mL Total Protein 6.4 (6.3-8.2) g/dL Albumin 3.4 L (3.5-5.0) g/dL 03/20/19 03/20/19 03/20/19 Range/Units 20:55 20:55 20:55 WBC (3.8-10.6) k/uL RBC (4.30-5.90) m/uL Hgb (13.0-17.5) gm/dL Hct (39.0-53.0) % MCV (80.0-100.0) fL MCH (25.0-35.0) pg MCHC (31.0-37.0) g/dL RDW (11.5-15.5) % Plt Count (150-450) k/uL Neutrophils % % Lymphocytes % % Monocytes % % Eosinophils % % Basophils % % Neutrophils # (1.3-7.7) k/uL Lymphocytes # (1.0-4.8) k/uL Monocytes # (0-1.0) k/uL Eosinophils # (0-0.7) k/uL Basophils # (0-0.2) k/uL PT 10.5 (9.0-12.0) sec INR 1.0 (<1.2) APTT 27.0 (22.0-30.0) sec Sodium (137-145) mmol/L Potassium (3.5-5.1) mmol/L Chloride (98-107) mmol/L Carbon Dioxide (22-30) mmol/L Anion Gap mmol/L BUN (9-20) mg/dL Creatinine (0.66-1.25) mg/dL Est GFR (CKD-EPI)AfAm (>60 ml/min/1.73 sqM) Est GFR (CKD-EPI)NonAf (>60 ml/min/1.73 sqM) Glucose (74-99) mg/dL Plasma Lactic Acid Hernán (0.7-2.0) mmol/L Calcium (8.4-10.2) mg/dL Magnesium (1.6-2.3) mg/dL Total Bilirubin (0.2-1.3) mg/dL AST (17-59) U/L ALT (21-72) U/L Alkaline Phosphatase (38-126) U/L Troponin I <0.012 (0.000-0.034) ng/mL NT-Pro-B Natriuret Pep 333 pg/mL Total Protein (6.3-8.2) g/dL Albumin (3.5-5.0) g/dL Critical Care Time Critical Care Time: Yes Total Critical Care Time: 30 <Aparna Tate P - Last Filed: 03/21/19 06:20> Disposition <Nando Ramírez M - Last Filed: 03/20/19 22:52> <Aparna Tate P - Last Filed: 03/21/19 06:20> Clinical Impression: Acute exacerbation of chronic obstructive airways disease Disposition: ADMITTED IP TO THIS HOSP Condition: Fair
[2019-03-20] MEDS ORDERED: ALBUTEROL NEBULIZED 2.5 MG/3 ML INHALATION PRN (23:03)
[2019-03-20] MEDS ORDERED: IPRATROPIUM-ALBUTEROL 3 ML NEB INHALATION STA (23:05)
[2019-03-20] MEDS ORDERED: oxyCODONE-APAP 10-325MG 1 EACH TAB PO STA (23:49)
[2019-03-21] MEDS: methylPREDNISolone SOD SUCCI 125 MG/2 ML VIAL IV SCH ×3 (00:48→11:05)
[2019-03-21] MEDS: oxyCODONE-APAP 7.5-325MG 1 EACH TAB PO SCH ×4 (08:21→21:43)
[2019-03-21] MEDS: METOPROLOL SUCCINATE (ER) 50 MG TAB.ER.24H PO SCH (08:21)
[2019-03-21] MEDS: SENNOSIDES-DOCUSATE SODIUM 1 EACH TAB PO SCH ×2 (08:21→20:25)
[2019-03-21] MEDS: LOSARTAN 50 MG TAB PO SCH (08:21)
[2019-03-21] MEDS: FUROSEMIDE 40 MG TAB PO SCH (08:21)
[2019-03-21] MEDS: CLOPIDOGREL 75 MG TAB PO SCH (08:21)
[2019-03-21] MEDS: CYANOCOBALAMIN 500 MCG TAB PO SCH (08:35)
[2019-03-21] MEDS: ISOSORBIDE MONONITRATE ER 60 MG TAB.ER.24H PO SCH (08:35)
[2019-03-21] MEDS: IPRATROPIUM-ALBUTEROL 3 ML NEB INHALATION SCH ×4 (09:01→20:02)
[2019-03-21 17:12] LABS: Glucose,Whole Blood 167 mg/dL (75-99)
[2019-03-21] MEDS: INSULIN ASPART (NovoLOG) 100 UNIT/ML VIAL SQ SCH ×2 (17:30→20:25)
[2019-03-21] MEDS: BUDESONIDE 1 MG/2 ML NEBU INHALATION SCH (20:02)
[2019-03-21] MEDS: ENOXAPARIN 40 MG/0.4 ML SYRINGE SQ SCH (20:09)
[2019-03-21 20:12] LABS: Glucose,Whole Blood 168 mg/dL (75-99)
[2019-03-21] MEDS: methylPREDNISolone SOD SUCCI 40 MG/ML 1 ML VIAL IV SCH (20:25)
[2019-03-21] MEDS: LORATADINE-PSEUDOEPH 5-120 MG 1 EACH TAB.ER.12H PO SCH (20:31)
[2019-03-21] MEDS ORDERED: ATORVASTATIN 40 MG TAB PO SCH (21:00)
[2019-03-22 06:54] LABS: Glucose,Whole Blood 197 mg/dL (75-99)
[2019-03-22] MEDS: IPRATROPIUM-ALBUTEROL 3 ML NEB INHALATION SCH ×2 (07:14→12:11)
[2019-03-22] MEDS: BUDESONIDE 1 MG/2 ML NEBU INHALATION SCH (07:14)
[2019-03-22 07:23] VITALS: RESP 16
[2019-03-22] MEDS: methylPREDNISolone SOD SUCCI 40 MG/ML 1 ML VIAL IV SCH (07:53)
[2019-03-22] MEDS: FUROSEMIDE 40 MG TAB PO SCH (07:54)
[2019-03-22] MEDS: METOPROLOL SUCCINATE (ER) 50 MG TAB.ER.24H PO SCH (07:54)
[2019-03-22] MEDS: LOSARTAN 50 MG TAB PO SCH (07:54)
[2019-03-22] MEDS: ENOXAPARIN 40 MG/0.4 ML SYRINGE SQ SCH (07:54)
[2019-03-22] MEDS: oxyCODONE-APAP 7.5-325MG 1 EACH TAB PO SCH ×2 (07:54→12:35)
[2019-03-22] MEDS: INSULIN ASPART (NovoLOG) 100 UNIT/ML VIAL SQ SCH ×2 (07:54→12:18)
[2019-03-22] MEDS: CYANOCOBALAMIN 500 MCG TAB PO SCH (07:55)
[2019-03-22] MEDS: CLOPIDOGREL 75 MG TAB PO SCH (07:55)
[2019-03-22] MEDS: LORATADINE-PSEUDOEPH 5-120 MG 1 EACH TAB.ER.12H PO SCH (07:55)
[2019-03-22] MEDS: SENNOSIDES-DOCUSATE SODIUM 1 EACH TAB PO SCH (07:56)
[2019-03-22] MEDS: ISOSORBIDE MONONITRATE ER 60 MG TAB.ER.24H PO SCH (07:57)
[2019-03-22 12:15] LABS: Glucose,Whole Blood 93 mg/dL (75-99)
[2019-03-22 13:42] VITALS: BP 112/67; TEMP 98.1
[2019-03-22 15:05] VITALS: PULSE 88
--- NOTE | 2019-03-22 20:33 | P.HPIM ---
History of Present Illness H&P Date: 03/21/19 Chief Complaint: Short of breath, chills History of presenting complaint: This is a 63-year-old patient of Dr. Yohan Patino. Chronic stable medical conditions include coronary artery disease with stent, hypertension, hyperlipidemia, obstructive sleep apnea, colonic diverticulosis, arthritis, chronic lumbar pain at L2 to L5, recurrent fractures AICD., Chronic hypoxic r espiratory failure on 2 L oxygen at home, morbid obesity, obesity hypoventilation syndrome chronic congestive heart failure from diastolic dysfunction EF 50-55%. Patient recently had cholecystectomy and had a rather bloody operative field and affect PEREZ drain and was sent [facility] when he had a stent placed. He was at [facility] recently had the stent removed. Patient presents 1 day of increasing shortness of breath having cold chills and fever, congested cough with white sclera sputum atelectasis at the bedside. Slight wheezing. Appetite has been good. No change in bowel or urine.. Review of systems: GEN.: Tired, some fever and chills EYES: None HEENT: None NECK: None RESPIRATORY: As above CARDIOVASCULAR: None GASTROINTESTINAL: None GENITOURINARY: None MUSCULOSKELETAL: Pain in the joints LYMPHATICS: None HEMATOLOGICAL: None PSYCHIATRY: None NEUROLOGICAL: None Past medical history: COPD in an ex-smoker, CHF from diastolic 50-55%, obesity hypoventilation syndrome, coronary artery disease with stent, hyperlipidemia, hypertension, AICD, chronic low back pain L2 to L5 as chronic fractures, morbid obesity, home oxygen 2 L, and right rotator cuff Social history: Lives alone and has a caregiver also as a roommate. Was smoking occasionally, does couple of cigarettes a day. No alcohol. Family history: Father had Parkinson's disease Physical examination: VITAL SIGNS: 99.1, 77, 20, 11 /, 96% on 4 L GENERAL: 46.8 BMI, laying in bed, not in distress. EYES: Pupils equal. Conjunctiva normal. HEENT: External appearance of nose and ears normal, oral cavity grossly normal. NECK: JVD unable to assess; masses not palpable. HEART: Heart sounds muffled, minimal edema. LUNGS: Respiratory rate increased, decreased breath sound. Some wheezing ABDOMEN: Soft, tender, bowel sounds sluggish, right upper quadrant PEREZ drain liver spleen not palpable, no masses palpable. PSYCH: Alert and oriented x3; mood and affect normal. NEUROLOGICAL: Cranial nerves grossly intact; no facial asymmetry, power and sensation grossly intact. LYMPHATICS: No lymph nodes palpable in the axilla and neck INVESTIGATIONS, reviewed in the clinical context: White count 9.6 hemoglobin 10.9 potassium 4.5 bun 14 treated 0.95 ProBNP 333 EKG tracing personally reviewed by me-normal sinus rhythm Chest x-ray film personally reviewed by me-a bit underexposed no obvious infiltrate Assessment: -Acute COPD exacerbation in a period from vital tracheobronchitis. Patient has no white count, clear thin sputum in an ex-smoker -History of cholecystectomy followed by ERCP stent placement and recent removal of stent at [facility] -Chronic congestive heart failure from diastolic dysfunction EF 50-55% -Obesity hypoventilation syndrome -Coronary artery disease with stent -Hyperlipidemia -Essential hypertension -AICD -Chronic low back pain from L2 to L5 with chronic fractures -Morbid obesity BMI 46.8 -Chronic hypoxic respiratory failure on 2 L oxygen at home Plan: Patient started on nebulized bronchodilators home and inhaled steroids and a short burst of IV steroids. Home medications resumed. Also had some Claritin-D and supposed to be vital tracheobronchitis. There is no need for any antibiotics. Care was discussed with the patient. Question were answered. Lovenox for DVT prophylaxis. Have the patient sit up in a chair and ambulate. . Past Medical History Past Medical History: Coronary Artery Disease (CAD), Chest Pain / Angina, COPD, CVA/TIA, Hyperlipidemia, Hypertension, Myocardial Infarction ([place]), Osteoarthritis (OA), Respiratory Disorder, Sleep Apnea/CPAP/BIPAP Additional Past Medical History / Comment(s): obesity, obesity hypoventilation syndrome, suspected CHF and cor pulmonale, previous history of defibrillator placement, CVA in 2004, chronic back pain secondary to DDD and spinal canal stenosis, history of vertebral fracture L2 through L5, chronic lower extremity edema, diverticular disease, L knee fx in past and torn R rotator cuff, cellulitis, recent hospitalization for gallbladder issues, states doesn't normally see inspector filters, just visiting physician although saw one in hospital recently Last Myocardial Infarction Date:: 2011 History of Any Multi-Drug Resistant Organisms: None Reported Past Surgical History: Cholecystectomy, Heart Catheterization With Stent, Hernia Repair, Pacemaker Additional Past Surgical History / Comment(s): PTCA with stent (4 total), 11/7/13 [employer] pacemaker, 1989' umbilical hernia repair, colonoscopy, circumcision, R eye surgery for strabismus, gallbladder stents One removed from on 03/19 Past Anesthesia/Blood Transfusion Reactions: No Reported Reaction Date of Last Stent Placement:: 2012 Type of Cardiac Device: Permanent Pacemaker Device Placement Date:: 04/05/13 Past Psychological History: No Psychological Hx Reported Additional Psychological History / Comment(s): Pt is living in a home with roomate. He can drive. [employer] can or [employer]. Smoking Status: Current some day smoker Past Alcohol Use History: None Reported Additional Past Alcohol Use History / Comment(s): Pt states he started smoking around 1970 and smokes just a couple cigarettes a day. Last smoking was this morning. Past Drug Use History: None Reported - Past Family History Father Family Medical History: Musculoskeletal Disorder, Neurologic Disorder Additional Family Medical History / Comment(s): Father had parkinson's dx and at age 84 yrs. Mother Family Medical History: Myocardial Infarction ([place]) Additional Family Medical History / Comment(s): Mother had 3 vessel CABG. She of a massive [place] at the age of 53 yrs. Medications and Allergies Home Medications Medication Instructions Recorded Confirmed Type Isosorbide Mononitrate ER [Imdur] 60 mg PO DAILY 04/25/17 03/20/19 History Losartan [Cozaar] 50 mg PO DAILY #30 tab 04/27/17 03/20/19 Rx Atorvastatin [Lipitor] 40 mg PO HS 02/10/18 03/20/19 History Furosemide [Lasix] 40 mg PO DAILY 02/10/18 03/20/19 History Cyanocobalamin (Vitamin B-12) 1,000 mcg PO DAILY 04/16/18 03/20/19 History [Vitamin B-12] Ipratropium-Albuterol Nebulize 3 ml INHALATION RT-TID PRN 04/16/18 03/20/19 Hi story [Duoneb 0.5 mg-3 mg/3 ml Soln] Metoprolol Succinate [Toprol XL] 50 mg PO DAILY 02/14/19 03/20/19 History oxyCODONE HCL/ACETAMINOPHEN 1 tab PO QID 02/14/19 03/20/19 History [Percocet 7.5-325 mg] Albuterol Nebulized [Ventolin 2.5 mg INHALATION RT-Q6H PRN 03/20/19 03/20/19 History Nebulized] Aspirin EC [Ecotrin] 325 mg PO DAILY 03/20/19 03/20/19 History Clopidogrel [Plavix] 75 mg PO DAILY 03/20/19 03/20/19 History Sennosides-Docusate Sodium 1 tab PO BID 03/20/19 03/20/19 History [Senokot-S] Allergies Allergy/AdvReac Type Severity Reaction Status Date / Time No Known Allergies Allergy Verified 03/20/19 20:57 Physical Exam Vitals: Vital Signs Temp Pulse Resp BP Pulse Ox 03/21/19 09:14 68 03/21/19 09:02 68 03/21/19 08:00 2 L 03/21/19 04:44 98.2 F 65 20 151/92 94 L 03/21/19 00:24 72 03/21/19 00:08 68 03/20/19 23:44 98.7 F 68 20 140/86 94 L 03/20/19 20:43 22 03/20/19 20:37 99.1 F 77 20 112/67 96 Intake and Output 03/20/19 03/21/19 03/21/19 22:59 06:59 14:59 Other: Voiding Method Toilet Weight 161.025 kg Results CBC & Chem 7: 03/20/19 20:55 03/20/19 20:55 Labs: Abnormal Lab Results - Last 24 Hours (Table) 03/20/19 Range/Units 20:55 Sodium 136 L (137-145) mmol/L Glucose 100 H (74-99) mg/dL Albumin 3.4 L (3.5-5.0) g/dL Thrombosis Risk Factor Assmnt - Choose All That Apply Each Risk Factor Represents 2 Points: Age 61-74 years Thrombosis Risk Factor Assessment Total Risk Factor Score: 2 Thrombosis Risk Factor Assessment Level: Low Risk
--- NOTE | 2019-03-22 20:38 | P.DS ---
Providers Date of admission: 03/21/19 00:08 Expected date of discharge: 03/22/19 Attending physician: Stevo Winn Primary care physician: [facility] Course: Chief Complaint: Short of breath, chills Hospital course: This is a 63-year-old patient of Dr. Yohan Patino. Chronic stable medical conditions include coronary artery disease with stent, hypertension, hyperlipidemia, obstructive sleep apnea, colonic diverticulosis, arthritis, chronic lumbar pain at L2 to L5, AICD., Chronic hypoxic respiratory failure on 2 L oxygen at home, morbid obesity, obesity hypoventilation syndrome chronic congestive heart failure from diastolic dysfunction EF 50-55%. Patient recently had cholecystectomy and had a rather bloody operative field and a PEREZ drain and was sent to [facility] when he had a stent placed. He was at [facility] recently had the stent removed. Patient presents 1 day of increasing shortness of breath having cold chills and fever, congested cough with white clear sputum,.. Slight wheezing. Appetite has been good. No change in bowel or urine.. Admitted with COPD exacerbation from vital tracheobronchitis. Responded well to bronchodilators, burst of steroids and Claritin-D. Doing much better today. Care was discussed with the patient. Eating well. Physical examination: VITAL SIGNS: 98.1, 67, 16, 112/67, 92% on room air GENERAL: 46.8 BMI, laying in bed, not in distress. EYES: Pupils equal. Conjunctiva normal. HEENT: External appearance of nose and ears normal, oral cavity grossly normal. NECK: JVD unable to assess; masses not palpable. HEART: Heart sounds muffled, minimal edema. LUNGS: Respiratory rate normal, decreased breath sound. Much improved wheezing ABDOMEN: Soft, tender, bowel sounds sluggish, liver spleen not palpable, no masses palpable. PSYCH: Alert and oriented x3; mood and affect normal. INVESTIGATIONS, reviewed in the clinical context: White count 9.6 hemoglobin 10.9 potassium 4.5 bun 14 treated 0.95 ProBNP 333 EKG tracing personally reviewed by me-normal sinus rhythm Chest x-ray film personally reviewed by me-a bit underexposed no obvious infiltrate Assessment: -Acute COPD exacerbation in a period from vital tracheobronchitis. Patient has no white count, clear thin sputum in an ex-smoker. Patient improved -History of cholecystectomy followed by ERCP stent placement and recent removal of stent at [facility] -Chronic congestive heart failure from diastolic dysfunction EF 50-55% -Obesity hypoventilation syndrome -Coronary artery disease with stent -Hyperlipidemia -Essential hypertension -AICD -Chronic low back pain from L2 to L5 with chronic fractures -Morbid obesity BMI 46.8 -Chronic hypoxic respiratory failure on 2 L oxygen at home Disposition: Home Patient Condition at Discharge: Stable Plan - Discharge Summary New Discharge Prescriptions: New Loratadine-Pseudoeph 5-120 mg [Claritin-D 12 Hour] 1 each PO Q12HR #6 tab.er.12h Continue Isosorbide Mononitrate ER [Imdur] 60 mg PO DAILY Losartan [Cozaar] 50 mg PO DAILY #30 tab Furosemide [Lasix] 40 mg PO DAILY Atorvastatin [Lipitor] 40 mg PO HS Ipratropium-Albuterol Nebulize [Duoneb 0.5 mg-3 mg/3 ml Soln] 3 ml INHALATION RT-TID PRN PRN Reason: Shortness Of Breath Cyanocobalamin (Vitamin B-12) [Vitamin B-12] 1,000 mcg PO DAILY oxyCODONE HCL/ACETAMINOPHEN [Percocet 7.5-325 mg] 1 tab PO QID Metoprolol Succinate [Toprol XL] 50 mg PO DAILY Sennosides-Docusate Sodium [Senokot-S] 1 tab PO BID Clopidogrel [Plavix] 75 mg PO DAILY Aspirin EC [Ecotrin] 325 mg PO DAILY Albuterol Nebulized [Ventolin Nebulized] 2.5 mg INHALATION RT-Q6H PRN PRN Reason: Shortness Of Breath Discharge Medication List Isosorbide Mononitrate ER [Imdur] 60 mg PO DAILY 04/25/17 [History] Losartan [Cozaar] 50 mg PO DAILY #30 tab 04/27/17 [Rx] Atorvastatin [Lipitor] 40 mg PO HS 02/10/18 [History] Furosemide [Lasix] 40 mg PO DAILY 02/10/18 [History] Cyanocobalamin (Vitamin B-12) [Vitamin B-12] 1,000 mcg PO DAILY 04/16/18 [History] Ipratropium-Albuterol Nebulize [Duoneb 0.5 mg-3 mg/3 ml Soln] 3 ml INHALATION RT-TID PRN 04/16/18 [History] Metoprolol Succinate [Toprol XL] 50 mg PO DAILY 02/14/19 [History] oxyCODONE HCL/ACETAMINOPHEN [Percocet 7.5-325 mg] 1 tab PO QID 02/14/19 [History] Albuterol Nebulized [Ventolin Nebulized] 2.5 mg INHALATION RT-Q6H PRN 03/20/19 [History] Aspirin EC [Ecotrin] 325 mg PO DAILY 03/20/19 [History] Clopidogrel [Plavix] 75 mg PO DAILY 03/20/19 [History] Sennosides-Docusate Sodium [Senokot-S] 1 tab PO BID 03/20/19 [History] Loratadine-Pseudoeph 5-120 mg [Claritin-D 12 Hour] 1 each PO Q12HR #6 tab.er.12h 03/22/19 [Rx] Follow up Appointment(s)/Referral(s): Boston Min MD [Primary Care Provider] - 1-2 days (Office will call with visit date and time.) Activity/Diet/Wound Care/Special Instructions: [facility]: #[phone] Discharge Disposition: HOME SELF-CARE
== END 2019-03-22 15:02 | disposition home health service (06) | DRG 191 ==
LOC: EC 20:31 → 4SSUR 03-21 00:08
PROVIDERS: ADMIT Hospitalist; ATTEND Hospitalist
DX: J44.0 Chronic obstructive pulmonary disease with (acute) lower respiratory infection (principal); E66.2 Morbid (severe) obesity with alveolar hypoventilation; Z68.42 Body mass index [BMI] 45.0-49.9, adult; I50.32 Chronic diastolic (congestive) heart failure; J96.11 Chronic respiratory failure with hypoxia; J98.11 Atelectasis; J20.9 Acute bronchitis, unspecified; J44.1 Chronic obstructive pulmonary disease with (acute) exacerbation; E78.5 Hyperlipidemia, unspecified; F17.210 Nicotine dependence, cigarettes, uncomplicated; G89.29 Other chronic pain; I11.0 Hypertensive heart disease with heart failure; I25.10 Atherosclerotic heart disease of native coronary artery without angina pectoris; I25.2 Old myocardial infarction; K57.30 Diverticulosis of large intestine without perforation or abscess without bleeding; M19.90 Unspecified osteoarthritis, unspecified site; Z79.02 Long term (current) use of antithrombotics/antiplatelets; Z79.82 Long term (current) use of aspirin; Z79.899 Other long term (current) drug therapy; Z82.0 Family history of epilepsy and other diseases of the nervous system; Z82.49 Family history of ischemic heart disease and other diseases of the circulatory system; Z86.73 Personal history of transient ischemic attack (TIA), and cerebral infarction without residual deficits; Z90.49 Acquired absence of other specified parts of digestive tract; Z95.5 Presence of coronary angioplasty implant and graft; Z99.81 Dependence on supplemental oxygen; Z95.810 Presence of automatic (implantable) cardiac defibrillator
CPT/HCPCS: 36415; 71046; 74176; 80053; 82150; 83605; 83690; 83735; 83880; 84484; 85025; 85610; 85730; 87040; 93005; 94640; 94760; 96365; 96374; 96375; 96376; 99285; 99291

== ENCOUNTER 2019-03-22 21:39 | Emergency (ER) | payer MEDICARE ==
[2019-03-22 21:49] VITALS: RESP 18
[2019-03-22] MEDS ORDERED: ONDANSETRON 4 MG/2 ML VIAL IVP STA (22:05)
[2019-03-22] MEDS ORDERED: HYDROmorphone 1 MG/ML 1 ML SYRINGE IVP STA ×2 (22:05→23:09)
--- NOTE | 2019-03-22 22:24 | ED ---
Abdominal Pain HPI - General Chief Complaint: Abdominal Pain Stated Complaint: Abd pain Time Seen by Provider: 03/22/19 21:50 Source: patient, EMS Mode of arrival: EMS - History of Present Illness Initial Comments: This patient is a 63-year-old man who presents to be evaluated for right-sided abdominal pain. This has been going on for number days. The patient had come to the hospital here on the for the same complaint and had been admitted overnight to have treatment for COPD exacerbation, but he states that the pain is been present this entire time, though manageable with the medication he was receiving. He states that he was discharged approximately 5-6 hours ago and the pain worsened at home he tried taking the Percocet but it wasn't working as well as the hospital medication. Patient relates that he had cholecystectomy performed, which was complicated by a bile leak. The patient had a number of stents placed at [facility] and had been there for a number days finally the last that was removed and he had gone home. Patient is having nausea but has not had vomiting. States that his last bowel movement was approximately 6 days ago. No blood or dark tarry stool. No fever or chills. MD Complaint: abdominal pain -: days(s) Location: RUQ, RLQ Radiation: none Migration to: no migration Severity: severe Quality: cramping, sharp Consistency: constant Improves With: medication Worsens With: nothing Associated Symptoms: nausea - Related Data Home Medications Medication Instructions Recorded Confirmed Isosorbide Mononitrate ER [Imdur] 60 mg PO DAILY 04/25/17 03/22/19 Atorvastatin [Lipitor] 40 mg PO HS 02/10/18 03/22/19 Furosemide [Lasix] 40 mg PO DAILY 02/10/18 03/22/19 Cyanocobalamin (Vitamin B-12) 1,000 mcg PO DAILY 04/16/18 03/22/19 [Vitamin B-12] Ipratropium-Albuterol Nebulize 3 ml INHALATION RT-TID PRN 04/16/18 03/22/19 [Duoneb 0.5 mg-3 mg/3 ml Soln] Metoprolol Succinate [Toprol XL] 50 mg PO DAILY 02/14/19 03/22/19 oxyCODONE HCL/ACETAMINOPHEN 1 tab PO QID 02/14/19 03/22/19 [Percocet 7.5-325 mg] Albuterol Nebulized [Ventolin 2.5 mg INHALATION RT-Q6H PRN 03/20/19 03/22/19 Nebulized] Aspirin EC [Ecotrin] 325 mg PO DAILY 03/20/19 03/22/19 Clopidogrel [Plavix] 75 mg PO DAILY 03/20/19 03/22/19 Sennosides-Docusate Sodium 1 tab PO BID 03/20/19 03/22/19 [Senokot-S] Loratadine-Pseudoeph 5-120 mg 1 tab PO Q12HR 03/22/19 03/22/19 [Claritin-D 12 Hour] Previous Rx's Medication Instructions Recorded Losartan [Cozaar] 50 mg PO DAILY #30 tab 04/27/17 Allergies Allergy/AdvReac Type Severity Reaction Status Date / Time No Known Allergies Allergy Verified 03/22/19 22:07 Review of Systems ROS Statement: Those systems with pertinent positive or pertinent negative responses have been documented in the HPI. ROS Other: All systems not noted in ROS Statement are negative. Constitutional: Denies: fever, chills Respiratory: Reports: cough (Chronic). Denies: dyspnea, hemoptysis Cardiovascular: Denies: chest pain, palpitations, syncope Gastrointestinal: Reports: as per HPI, abdominal pain, nausea, constipation. Denies: vomiting, diarrhea, melena, hematochezia Genitourinary: Denies: dysuria, hematuria, testicular pain, testicular mass Musculoskeletal: Denies: back pain Skin: Denies: rash Neurological: Denies: headache, weakness, numbness Past Medical History Past Medical History: Coronary Artery Disease (CAD), Chest Pain / Angina, COPD, CVA/TIA, Hyperlipidemia, Hypertension, Myocardial Infarction (NV), Osteoarthritis (OA), Respiratory Disorder, Sleep Apnea/CPAP/BIPAP Additional Past Medical History / Comment(s): obesity, obesity hypoventilation syndrome, suspected CHF and cor pulmonale, previous history of defibrillator placement, CVA in 2004, chronic back pain secondary to DDD and spinal canal stenosis, history of vertebral fracture L2 through L5, chronic lower extremity edema, diverticular disease, L knee fx in past and torn R rotator cuff, cellulitis, recent hospitalization for gallbladder issues, states doesn't normally see setter up, just visiting physician although saw one in hospital recently Last Myocardial Infarction Date:: 2011 History of Any Multi-Drug Resistant Organisms: None Reported Past Surgical History: Cholecystectomy, Heart Catheterization With Stent, Hernia Repair, Pacemaker Additional Past Surgical History / Comment(s): PTCA with stent (4 total), 04/05/13 [employer] pacemaker, umbilical hernia repair, colo noscopy, circumcision, R eye surgery for strabismus, gallbladder stents One removed from HF on 03/19 Past Anesthesia/Blood Transfusion Reactions: No Reported Reaction Date of Last Stent Placement:: 2012 Type of Cardiac Device: Permanent Pacemaker Device Placement Date:: 04/05/13 Past Psychological History: No Psychological Hx Reported Smoking Status: Current some day smoker Past Alcohol Use History: None Reported Past Drug Use History: None Reported - Past Family History Father Family Medical History: Musculoskeletal Disorder, Neurologic Disorder Additional Family Medical History / Comment(s): Father had parkinson's dx and at age 84 yrs. Mother Family Medical History: Myocardial Infarction (NV) Additional Family Medical History / Comment(s): Mother had 3 vessel CABG. She of a massive NV at the age of 53 yrs. General Exam General appearance: alert, in no apparent distress Head exam: Present: atraumatic, normocephalic Eye exam: Present: normal appearance. Absent: scleral icterus, conjunctival injection ENT exam: Present: normal oropharynx Respiratory exam: Present: wheezes (Trace expiratory wheeze). Absent: respiratory distress, rales, rhonchi, stridor Cardiovascular Exam: Present: regular rate, normal rhythm, normal heart sounds. Absent: systolic murmur, diastolic murmur, rubs, gallop GI/Abdominal exam: Present: distended, tenderness, other (Abdominal exam limited by body habitus). Absent: guarding, rebound, rigid, mass, pulsatile mass, hernia exam: Present: normal inspection Extremities exam: Present: normal inspection, normal capillary refill. Absent: pedal edema, calf tenderness Back exam: Present: normal inspection. Absent: CVA tenderness (R), CVA tenderness (L) Neurological exam: Present: alert Skin exam: Present: warm, dry, intact, normal color. Absent: rash Course Vital Signs 03/22/19 03/22/19 21:41 23:34 Temperature 97.5 F L 98.2 F Pulse Rate 66 62 Respiratory 18 18 Rate Blood Pressure 189/109 113/73 O2 Sat by Pulse 96 92 L Oximetry Medical Decision Making - Medical Decision Making Patient is 63-year-old man presenting with abdominal pain and moderate tenderness on the exam. He is sent for CT which appears to show sigmoid diverticulitis and a suspected abscess adjacent. Discussed results with the patient who states that given his complications following cholecystectomy he would prefer care at [facility] if there is possible surgery. Discussed case with transfer team at [facility] and Dr. Tuttle will accept transfer. - Lab Data Result diagrams: 03/22/19 22:51 03/22/19 22:51 Lab Results 03/22/19 03/22/19 Range/Units 22:51 22:51 WBC 13.9 H (3.8-10.6) k/uL RBC 5.29 (4.30-5.90) m/uL Hgb 15.2 (13.0-17.5) gm/dL Hct 46.9 (39.0-53.0) % MCV 88.7 (80.0-100.0) fL MCH 28.7 (25.0-35.0) pg MCHC 32.4 (31.0-37.0) g/dL RDW 14.6 (11.5-15.5) % Plt Count 271 (150-450) k/uL Neutrophils % 80 % Lymphocytes % 14 % Monocytes % 4 % Eosinophils % 0 % Basophils % 1 % Neutrophils # 11.1 H (1.3-7.7) k/uL Lymphocytes # 2.0 (1.0-4.8) k/uL Monocytes # 0.5 (0-1.0) k/uL Eosinophils # 0.0 (0-0.7) k/uL Basophils # 0.1 (0-0.2) k/uL Sodium 140 (137-145) mmol/L Potassium 4.3 (3.5-5.1) mmol/L Chloride 103 (98-107) mmol/L Carbon Dioxide 31 H (22-30) mmol/L Anion Gap 6 mmol/L BUN 28 H (9-20) mg/dL Creatinine 0.97 (0.66-1.25) mg/dL Est GFR (CKD-EPI)AfAm >90 (>60 ml/min/1.73 sqM) Est GFR (CKD-EPI)NonAf 84 (>60 ml/min/1.73 sqM) Glucose 102 H (74-99) mg/dL Calcium 9.5 (8.4-10.2) mg/dL Total Bilirubin 0.5 (0.2-1.3) mg/dL AST 23 (17-59) U/L ALT 42 (21-72) U/L Alkaline Phosphatase 79 (38-126) U/L Total Protein 6.7 (6.3-8.2) g/dL Albumin 3.6 (3.5-5.0) g/dL Amylase 88 (30-110) U/L Lipase 63 (23-300) U/L Disposition Clinical Impression: Abdominal pain, Diverticulitis Disposition: OTHER INSTITUTION NOT DEFINED Condition: Serious Is patient prescribed a controlled substance at d/c from ED?: No Referrals: Boston Min MD [Primary Care Provider] - 1-2 days - Out of Hospital Transfer - Req. Specs Out of Hospital Transfer - Requested Specifics: Other Emergency Center
--- NOTE | 2019-03-22 22:55 | CT ---
EXAMINATION TYPE: CT abdomen pelvis wo con DATE OF EXAM: 03/22/2019 COMPARISON: 12/10/2018 HISTORY: RLQ pain CT DLP: 2916.4 mGycm Automated exposure control for dose reduction was used. TECHNIQUE: Helical acquisition of images was performed from the lung bases through the pelvis. FINDINGS: There is atelectasis at the lung bases. There is small left pleural effusion and pleural thickening. There is 3 cm cyst anterior left lobe of the liver. There is air in the biliary tree consistent with reflux. There are clips apparently from cholecystectomy. There is enlargement of the common bile duct measures 1.8 cm. There is no evidence of a pancreatic mass. Spleen is intact. The stomach is intact. There is no adrenal mass. Kidneys show normal size and contour. There is 3 cm cyst posterior right ki dney. There is 2 cm cortical cyst lower pole left kidney. There is no hydronephrosis. Ureters are not dilated. There is some minimal renal vascular calcification. There is no retroperitoneal adenopathy. There is extensive fat stranding around the mid sigmoid colon with wall thickening. The bladder diste nds smoothly. There is no inguinal hernia. There is no free fluid in the pelvis. The appendix appears normal. There is 3 cm air-filled cavity adjacent to the mid sigmoid colon that could be peridivertic ular abscess. Lumbar vertebra have normal alignment. There is hypertrophic spurring of the endplates. Bony pelvis i s intact. Bony pelvis is intact. IMPRESSION: THERE IS SOME PATCHY ATELECTASIS AND PLEURAL THICKENING AT THE LUNG BASES. HEPATIC AND RENAL CYSTS. NO RENAL OBSTRUCTION. THERE ARE EXTENSIVE INFLAMMATORY CHANGES MID SIGMOID COLON CONSISTENT WITH DIVERTICULITIS AND PERIDIV ERTICULAR ABSCESS.
[2019-03-22 23:02] LABS: Basophils # (A) 0.1 k/uL (0-0.2); Basophils % (A) 1 %; Eosinophils % (A) 0 %; HCT 46.9 % (39.0-53.0); HGB 15.2 gm/dL (13.0-17.5); Lymphocytes % (A) 14 %; MCH 28.7 pg (25.0-35.0); MCHC 32.4 g/dL (31.0-37.0); MCV 88.7 fL (80.0-100.0); Mean Platelet Volume 6.4; Monocytes # (A) 0.5 k/uL (0-1.0); Monocytes % (A) 4 %; Neutrophils # (A) 11.1 k/uL (1.3-7.7); Neutrophils % (A) 80 %; Platelet Count 271 k/uL (150-450); RBC 5.29 m/uL (4.30-5.90); RDW 14.6 % (11.5-15.5); WBC 13.9 k/uL (3.8-10.6)
[2019-03-22] MEDS ORDERED: PIPERACILLIN-TAZOBACTAM 3.375 GM in SODIUM CHLORIDE 0.9% 100 ML IVPB STA (23:04)
[2019-03-22 23:12] LABS: ALT 42 U/L (21-72); AST 23 U/L (17-59); African American GFR (CKD) >90 (>60 ml/min/1.73 sqM); Albumin 3.6 g/dL (3.5-5.0); Alkaline Phosphatase 79 U/L (38-126); Amylase 88 U/L (30-110); Anion Gap 6 mmol/L; Blood Urea Nitrogen 28 mg/dL (9-20); Calcium 9.5 mg/dL (8.4-10.2); Carbon Dioxide 31 mmol/L (22-30); Chloride 103 mmol/L (98-107); Glucose 102 mg/dL (74-99); Potassium 4.3 mmol/L (3.5-5.1); Sodium 140 mmol/L (137-145); Total Bilirubin 0.5 mg/dL (0.2-1.3); Total Protein 6.7 g/dL (6.3-8.2)
[2019-03-22 23:35] VITALS: BP 113/73; PULSE 62; TEMP 98.2
== END 2019-03-23 00:27 | disposition short-term general hospital (02) ==
LOC: EC 21:39
DX: K57.32 Diverticulitis of large intestine without perforation or abscess without bleeding (principal); R14.0 Abdominal distension (gaseous); J44.1 Chronic obstructive pulmonary disease with (acute) exacerbation; I25.119 Atherosclerotic heart disease of native coronary artery with unspecified angina pectoris; E78.5 Hyperlipidemia, unspecified; I10 Essential (primary) hypertension; I25.2 Old myocardial infarction; M19.90 Unspecified osteoarthritis, unspecified site; G47.30 Sleep apnea, unspecified; F17.200 Nicotine dependence, unspecified, uncomplicated; Z79.02 Long term (current) use of antithrombotics/antiplatelets; Z79.82 Long term (current) use of aspirin; Z79.891 Long term (current) use of opiate analgesic; Z79.899 Other long term (current) drug therapy; Z86.73 Personal history of transient ischemic attack (TIA), and cerebral infarction without residual deficits; Z90.49 Acquired absence of other specified parts of digestive tract; Z95.0 Presence of cardiac pacemaker; Z95.5 Presence of coronary angioplasty implant and graft; Z99.89 Dependence on other enabling machines and devices
CPT/HCPCS: 99285; 96365; 96375 ×2; 96376; 36415; 80053; 82150; 83690; 85025; 74176; J2543; J2405; J1170

== ENCOUNTER 2019-05-24 16:22 | Inpatient (IN) | payer MEDICARE ==
--- NOTE | 2019-05-24 17:52 | ED ---
General Adult HPI - General Chief complaint: Shortness of Breath Stated complaint: Leg swelling, CHF,COPD Time Seen by Provider: 05/24/19 17:36 Source: patient Mode of arrival: wheelchair - History of Present Illness Initial comments: Dictation was produced using [employer] dictation software. please excuse any grammatical, word or spelling errors. Chief Complaint: 63-year-old male past medical history of COPD, heart failure presents with lower extremity pain and shortness of breath. History of Present Illness: Male he has past medical history of COPD, coronary artery disease, dyslipidemia, hypertension, obesity hypoventilation syndrome. He presents today with shortness of breath and lower extremity swelling. Patient states she's been having symptoms for the last 40-72 hours. He states that his legs have become extremely swollen recently. He has a past medical history heart failure. Patient also has some mild chest pain. Patient denies any pain to the calf. Denies any history of PE. Persistent shortness of breath is worse with lying flat. The ROS documented in this emergency department record has been reviewed and confirmed by me. Those systems with pertinent positive or negative responses have been documented in the HPI. All other systems are other negative and/or noncontributory. PHYSICAL EXAM: General Impression: Alert and oriented x3, not in acute distress, significantly obese HEENT: Normocephalic atraumatic, extra-ocular movements intact, pupils equal and reactive to light bilaterally, mucous membranes moist. Cardiovascular: Heart regular rate and rhythm, S1&S2 audible, no murmurs, rubs or gallops Chest: Mild crackles, auscultatory examination limited secondary to body habitus. Abdomen: Bowel sounds present, abdomen soft, non-tender, non-distended, no organomegaly Musculoskeletal: Pulses present and equal in all extremities, bilateral 3+ pitting edema Motor: no focal deficits noted Neurological: CN II-XII grossly intact, no focal motor or sensory deficits noted Skin: Intact with no visualized rashes Psych: Normal affect and mood ED course: 63 yo Male presents with chief complaint of shortness of breath. Cli nical presentation is concerning for heart failure exacerbation. Vital signs upon arrival are within acceptable limits. Return evaluation obtained. Hemoglobin is 9.3. This is significantly dropped from 2 months ago which was measured at 15.2. Coag panel unremarkable. Metabolic panel is negative. Troponins negative. Brain natruretic peptide is 200. Chest x-ray is nonacute. Patient also wanted a wrist x-ray because of wrist pain. Wrist x-rays negative. Patient has a history of COPD he is given COPD medications. At this point is unclear what is causing patient's caitlin of breath. Could be multifactorial. Is concerned that there is a GI bleed however there was no dark stools or findings of GI bleed and his ostomy bag. Perhaps his hemoglobin low from chronic disease. Patient will be evaluated for GI consultation. Patient given Protonix. There is some concern that patient's shortness of breath could be secondary to symptomatic anemia. EKG interpretation: Ventricular rate 77, sinus rhythm, TX interval 160, QS 96, QTC 4:30. No TX prolongation, no QTC prolongation, no ST or T-wave changes noted. EKG compared to 03/20/2019 showing no changes. Overall, this EKG is unremarkable - Related Data Home Medications Medication Instructions Recorded Confirmed Isosorbide Mononitrate ER [Imdur] 60 mg PO DAILY 04/25/17 03/22/19 Atorvastatin [Lipitor] 40 mg PO HS 02/10/18 03/22/19 Furosemide [Lasix] 40 mg PO DAILY 02/10/18 03/22/19 Cyanocobalamin (Vitamin B-12) 1,000 mcg PO DAILY 04/16/18 03/22/19 [Vitamin B-12] Ipratropium-Albuterol Nebulize 3 ml INHALATION RT-TID PRN 04/16/18 03/22/19 [Duoneb 0.5 mg-3 mg/3 ml Soln] Metoprolol Succinate [Toprol XL] 50 mg PO DAILY 02/14/19 03/22/19 oxyCODONE HCL/ACETAMINOPHEN 1 tab PO QID 02/14/19 03/22/19 [Percocet 7.5-325 mg] Albuterol Nebulized [Ventolin 2.5 mg INHALATION RT-Q6H PRN 03/20/19 03/22/19 Nebulized] Aspirin EC [Ecotrin] 325 mg PO DAILY 03/20/19 03/22/19 Clopidogrel [Plavix] 75 mg PO DAILY 03/20/19 03/22/19 Sennosides-Docusate Sodium 1 tab PO BID 03/20/19 03/22/19 [Senokot-S] Loratadine-Pseudoeph 5-120 mg 1 tab PO Q12HR 03/22/19 03/22/19 [Claritin-D 12 Hour] Previous Rx's Medication Instructions Recorded Losartan [Cozaar] 50 mg PO DAILY #30 tab 04/27/17 Allergies Allergy/AdvReac Type Severity Reaction Status Date / Time No Known Allergies Allergy Verified 05/24/19 17:26 Review of Systems ROS Statement: Those systems with pertinent positive or pertinent negative responses have been documented in the HPI. ROS Other: All systems not noted in ROS Statement are negative. Past Medical History Past Medical History: Coronary Artery Disease (CAD), Chest Pain / Angina, COPD, CVA/TIA, Hyperlipidemia, Hypertension, Myocardial Infarction (CA), Osteoarthritis (OA), Respiratory Disorder, Sleep Apnea/CPAP/BIPAP Additional Past Medical History / Comment(s): obesity, obesity hypoventilation syndrome, suspected CHF and cor pulmonale, previous history of defibrillator placement, CVA in 2004, chronic back pain secondary to DDD and spinal canal stenosis, history of vertebral fracture L2 through L5, chronic lower extremity edema, diverticular disease, L knee fx in past and torn R rotator cuff, cellulitis, recent hospitalization for gallbladder issues, states doesn't normally see paper cup machine tender, just visiting physician although saw one in hospital recently Last Myocardial Infarction Date:: 2011 History of Any Multi-Drug Resistant Organisms: None Reported Past Surgical History: Bowel Resection, Cholecystectomy, Heart Catheterization With Stent, Hernia Repair, Pacemaker Additional Past Surgical History / Comment(s): PTCA with stent (4 total), 04/05/13 [employer] pacemaker, umbilical hernia repair, colonoscopy, circumcision, R eye surgery for strabismus, gallbladder stents One removed from on 03/19, Colostomy with open wounds. Past Anesthesia/Blood Transfusion Reactions: No Reported Reaction Date of Last Stent Placement:: 2012 Type of Cardiac Device: Permanent Pacemaker Device Placement Date:: 04/05/13 Past Psychological History: No Psychological Hx Reported Smoking Status: Current some day smoker Past Alcohol Use History: None Reported Past Drug Use History: None Reported - Past Family History Father Family Medical History: Musculoskeletal Disorder, Neurologic Disorder Additional Family Medical History / Comment(s): Father had parkinson's dx and at age 84 yrs. Mother Family Medical History: Myocardial Infarction (CA) Additional Family Medical History / Comment(s): Mother had 3 vessel CABG. She of a massive CA at the age of 53 yrs. Course Vital Signs 05/24/19 05/24/19 17:21 18:28 Temperature 98.3 F Pulse Rate 81 78 Respiratory 17 16 Rate Blood Pressure 116/66 155/88 O2 Sat by Pulse 97 100 Oximetry Medical Decision Making - Lab Data Result diagrams: 05/24/19 18:35 05/24/19 18:35 Lab Results 05/24/19 05/24/19 05/24/19 Range/Units 18:28 18:35 18:35 WBC 7.3 (3.8-10.6) k/uL RBC 3.81 L (4.30-5.90) m/uL Hgb 9.3 L D (13.0-17.5) gm/dL Hct 30.5 L (39.0-53.0) % MCV 79.9 L D (80.0-100.0) fL MCH 24.3 L (25.0-35.0) pg MCHC 30.4 L (31.0-37.0) g/dL RDW 16.3 H (11.5-15.5) % Plt Count 287 (150-450) k/uL Neutrophils % 63 % Lymphocytes % 24 % Monocytes % 7 % Eosinophils % 4 % Basophils % 0 % Neutrophils # 4.6 (1.3-7.7) k/uL Lymphocytes # 1.8 (1.0-4.8) k/uL Monocytes # 0.5 (0-1.0) k/uL Eosinophils # 0.3 (0-0.7) k/uL Basophils # 0.0 (0-0.2) k/uL Hypochromasia Marked Poikilocytosis Slight Anisocytosis Slight PT (9.0-12.0) sec INR (<1.2) APTT (22.0-30.0) sec Sodium 139 (137-145) mmol/L Potassium 4.2 (3.5-5.1) mmol/L Chloride 101 (98-107) mmol/L Carbon Dioxide 33 H (22-30) mmol/L Anion Gap 5 mmol/L BUN 16 (9-20) mg/dL Creatinine 0.78 (0.66-1.25) mg/dL Est GFR (CKD-EPI)AfAm >90 (>60 ml/min/1.73 sqM) Est GFR (CKD-EPI)NonAf >90 (>60 ml/min/1.73 sqM) Glucose 100 H (74-99) mg/dL Calcium 8.8 (8.4-10.2) mg/dL Total Bilirubin 0.3 (0.2-1.3) mg/dL AST 20 (17-59) U/L ALT 12 (4-49) U/L Alkaline Phosphatase 90 (38-126) U/L Troponin I (0.000-0.034) ng/mL NT-Pro-B Natriuret Pep 237 pg/mL Total Protein 6.1 L (6.3-8.2) g/dL Albumin 3.1 L (3.5-5.0) g/dL 05/24/19 05/24/19 Range/Units 18:35 18:35 WBC (3.8-10.6) k/uL RBC (4.30-5.90) m/uL Hgb (13.0-17.5) gm/dL Hct (39.0-53.0) % MCV (80.0-100.0) fL MCH (25.0-35.0) pg MCHC (31.0-37.0) g/dL RDW (11.5-15.5) % Plt Count (150-450) k/uL Neutrophils % % Lymphocytes % % Monocytes % % Eosinophils % % Basophils % % Neutrophils # (1.3-7.7) k/uL Lymphocytes # (1.0-4.8) k/uL Monocytes # (0-1.0) k/uL Eosinophils # (0-0.7) k/uL Basophils # (0-0.2) k/uL Hypochromasia Poikilocytosis Anisocytosis PT 9.8 (9.0-12.0) sec INR 0.9 (<1.2) APTT 23.4 (22.0-30.0) sec Sodium (137-145) mmol/L Potassium (3.5-5.1) mmol/L Chloride (98-107) mmol/L Carbon Dioxide (22-30) mmol/L Anion Gap mmol/L BUN (9-20) mg/dL Creatinine (0.66-1.25) mg/dL Est GFR (CKD-EPI)AfAm (>60 ml/min/1.73 sqM) Est GFR (CKD-EPI)NonAf (>60 ml/min/1.73 sqM) Glucose (74-99) mg/dL Calcium (8.4-10.2) mg/dL Total Bilirubin (0.2-1.3) mg/dL AST (17-59) U/L ALT (4-49) U/L Alkaline Phosphatase (38-126) U/L Troponin I <0.012 (0.000-0.034) ng/mL NT-Pro-B Natriuret Pep pg/mL Total Protein (6.3-8.2) g/dL Albumin (3.5-5.0) g/dL Disposition Clinical Impression: Dyspnea Disposition: ADMITTED IP TO THIS HOSP Condition: Fair Referrals: Boston Min MD [Primary Care Provider] - 1-2 days Decision Time: 19:52
--- NOTE | 2019-05-24 18:29 | XR ---
EXAMINATION TYPE: XR chest 2V DATE OF EXAM: 05/24/2019 COMPARISON: 03/20/2019 HISTORY: Difficulty breathing TECHNIQUE: 2 views FINDINGS: There is no heart failure nor confluent pneumonic infiltrate. There is left axillary pacema ker. Costophrenic angles are clear. Bony thorax is intact IMPRESSION: No active cardiopulmonary disease. No change.
--- NOTE | 2019-05-24 18:31 | XR ---
EXAMINATION TYPE: XR wrist complete RT DATE OF EXAM: 05/24/2019 COMPARISON: NONE HISTORY: Wrist pain TECHNIQUE: 4 views FINDINGS: Carpal bones appear intact. I see no fracture nor dislocation. Metacarpals are intact. Join t spaces are fairly normal. Scaphoid is intact. IMPRESSION: Negative right wrist exam.
[2019-05-24 18:39] LABS: Anisocytosis Slight; Basophils % (A) 0 %; Eosinophils # (A) 0.3 k/uL (0-0.7); Eosinophils % (A) 4 %; HCT 30.5 % (39.0-53.0); Hypochromasia Marked; Lymphocytes # (A) 1.8 k/uL (1.0-4.8); Lymphocytes % (A) 24 %; MCH 24.3 pg (25.0-35.0); MCHC 30.4 g/dL (31.0-37.0); Mean Platelet Volume 7.9; Monocytes # (A) 0.5 k/uL (0-1.0); Monocytes % (A) 7 %; Neutrophils # (A) 4.6 k/uL (1.3-7.7); Neutrophils % (A) 63 %; Platelet Count 287 k/uL (150-450); Poikilocytosis Slight; RBC 3.81 m/uL (4.30-5.90); RDW 16.3 % (11.5-15.5); WBC 7.3 k/uL (3.8-10.6)
[2019-05-24 18:43] LABS: HGB 9.3 gm/dL (13.0-17.5); MCV 79.9 fL (80.0-100.0)
[2019-05-24 18:47] LABS: ALT 12 U/L (4-49); AST 20 U/L (17-59); African American GFR (CKD) >90 (>60 ml/min/1.73 sqM); Albumin 3.1 g/dL (3.5-5.0); Alkaline Phosphatase 90 U/L (38-126); Anion Gap 5 mmol/L; Blood Urea Nitrogen 16 mg/dL (9-20); Calcium 8.8 mg/dL (8.4-10.2); Carbon Dioxide 33 mmol/L (22-30); Chloride 101 mmol/L (98-107); Glucose 100 mg/dL (74-99); Non-African American GFR(CKD) >90 (>60 ml/min/1.73 sqM); Potassium 4.2 mmol/L (3.5-5.1); Sodium 139 mmol/L (137-145); Total Bilirubin 0.3 mg/dL (0.2-1.3); Total Protein 6.1 g/dL (6.3-8.2)
[2019-05-24 18:48] LABS: INR 0.9 (<1.2); Partial Thromboplastin Time 23.4 sec (22.0-30.0); Prothrombin Time 9.8 sec (9.0-12.0)
[2019-05-24] MEDS ORDERED: PANTOPRAZOLE 40 MG/10 ML VIAL IVP ONE (19:03)
[2019-05-24] MEDS ORDERED: MORPHINE SULFATE 4 MG/ML SYRINGE IV STA (19:40)
[2019-05-24] MEDS ORDERED: IPRATROPIUM-ALBUTEROL 3 ML NEB INHALATION STA (19:41)
[2019-05-24] MEDS ORDERED: DEXAMETHASONE SOD PHOSPHATE 10 MG/ML 1 ML VIAL IV STA (19:41)
[2019-05-24] MEDS ORDERED: ONDANSETRON 4 MG/2 ML VIAL IVP PRN (19:47)
[2019-05-24] MEDS ORDERED: NALOXONE 0.4 MG/ML 1 ML VIAL IV PRN (19:47)
[2019-05-24] MEDS: SODIUM CHLORIDE 0.9% 1,000 ML IV SCH (20:01)
[2019-05-24] MEDS ORDERED: MORPHINE SULFATE 2 MG/ML SYRINGE IVP STA (21:46)
[2019-05-24] MEDS ORDERED: SENNOSIDES-DOCUSATE SODIUM 1 EACH TAB PO PRN (22:17)
--- NOTE | 2019-05-24 22:20 | P.HPIM ---
History of Present Illness H&P Date: 05/24/19 Patient is a 63-year-old male with a PMH of coronary artery disease status post stents, diastolic CHF with AICD, COPD, hypoxic respiratory failure on 2 L nasal cannula oxygen continuously, history of diverticulitis status post colostomy creation, hypertension, hyperlipidemia, obstructive sleep apnea on home BiPAP, presents to the ED with complaints of shortness of breath and chest discomfort. Patient notes that over the past few weeks, he has been having gradually worsening shortness of breath along with some midsternal chest pressure. The pain occurs intermittently, lasting a few seconds to minutes at a time, not always associated with exertion, with associated shortness of breath, unable to quantify, nonradiating. The patient denied any associated nausea, vomiting, or diaphoresis. He also notes that he has been having severe lower extremity edema that has gradually worsened during the same time. He notes compliance with all his home medications including his Lasix. He denied fever, chills, cough, abdominal pain, blood in stools, or black stools. The patient underwent an exten sive evaluation in the emergency room with chest x-ray unremarkable and EKG showing sinus rhythm at 77 bpm with QTC 430, as reviewed by me. Laboratory evaluation revealed troponin less than 0.012, BNP 237, WBC 7.3, hemoglobin 9.3 (down from 15.2 in 02/2019), sodium 139, potassium 4.2, chloride 101, CO2 33, BUN 16, Cr 0.78, and Glucose 100. The patient is admitted for further management of anemia and chest discomfort. Review of Systems Pertinent positives and negatives as discussed in HPI, a complete review of systems was performed and all other systems are negative. Past Medical History Past Medical History: Coronary Artery Disease (CAD), Chest Pain / Angina, COPD, CVA/TIA, Hyperlipidemia, Hypertension, Myocardial Infarction ([place]), Osteoarthritis (OA), Respiratory Disorder, Sleep Apnea/CPAP/BIPAP Additional Past Medical History / Comment(s): obesity, obesity hypoventilation syndrome, suspected CHF and cor pulmonale, previous history of defibrillator placement, CVA in 2004, chronic back pain secondary to DDD and spinal canal stenosis, history of vertebral fracture L2 through L5, chronic lower extremity edema, diverticular disease, L knee fx in past and torn R rotator cuff, cellulitis, recent hospitalization for gallbladder issues, states doesn't normally see elementary school social worker, just visiting physician although saw one in hospital recently Last Myocardial Infarction Date:: 2011 History of Any Multi-Drug Resistant Organisms: None Reported Past Surgical History: Bowel Resection, Cholecystectomy, Heart Catheterization With Stent, Hernia Repair, Pacemaker Additional Past Surgical History / Comment(s): PTCA with stent (4 total), 04/05/13 [employer] pacemaker, 1989' umbilical hernia repair, colonoscopy, circumcision, R eye surgery for strabismus, gallbladder stents One removed from HF on 03/19, Colostomy with open wounds. Past Anesthesia/Blood Transfusion Reactions: No Reported Reaction Date of Last Stent Placement:: 2012 Type of Cardiac Device: Permanent Pacemaker Device Placement Date:: 04/05/13 Past Psychological History: No Psychological Hx Reported Smoking Status: Current some day smoker Past Alcohol Use History: None Reported Past Drug Use History: None Reported - Past Family History Father Family Medical History: Musculoskeletal Disorder, Neurologic Disorder Additional Family Medical History / Comment(s): Father had parkinson's dx and at age 84 yrs. Mother Family Medical History: Myocardial Infarction ([place]) Additional Family Medical History / Comment(s): Mother had 3 vessel CABG. She of a massive [place] at the age of 53 yrs. Medications and Allergies Home Medications Medication Instructions Recorded Confirmed Type Isosorbide Mononitrate ER [Imdur] 60 mg PO DAILY 04/25/17 03/22/19 History Losartan [Cozaar] 50 mg PO DAILY #30 tab 04/27/17 05/24/19 Rx Furosemide [Lasix] 40 mg PO DAILY 02/10/18 05/24/19 History Cyanocobalamin (Vitamin B-12) 1,000 mcg PO DAILY 04/16/18 05/24/19 History [Vitamin B-12] Metoprolol Succinate [Toprol XL] 50 mg PO DAILY 02/14/19 05/24/19 History oxyCODONE HCL/ACETAMINOPHEN 1 tab PO Q6H PRN 02/14/19 05/24/19 History [Percocet 7.5-325 mg] Albuterol Nebulized [Ventolin 2.5 mg INHALATION RT-QID 03/20/19 05/24/19 History Nebulized] Aspirin EC [Ecotrin] 325 mg PO DAILY 03/20/19 05/24/19 History Clopidogrel [Plavix] 75 mg PO DAILY 03/20/19 05/24/19 History Sennosides-Docusate Sodium 1 tab PO BID PRN 03/20/19 05/24/19 History [Senokot-S] Allergies Allergy/AdvReac Type Severity Reaction Status Date / Time No Known Allergies Allergy Verified 05/24/19 20:52 Physical Exam Vitals: Vital Signs Temp Pulse Resp BP Pulse Ox 05/24/19 20:40 98.0 F 82 18 149/78 98 05/24/19 18:28 78 16 155/88 100 05/24/19 17:21 98.3 F 81 17 116/66 97 Intake and Output 05/24/19 05/24/19 05/24/19 06:59 14:59 22:59 Other: Weight 158.757 kg General: non toxic, no distress, appears at stated age, morbidly obese Derm: no unusual rashes/lesions no unusual ecchymoses, warm Head: atraumatic, normocephalic, symmetric Eyes: EOMI, no lid lag, anicteric sclera, pupils equal round reactive to light ENT: Nose and ears atraumatic, no thrush, no pharyngeal erythema Neck: No thyromegaly, no cervical lymphadenopathy, trachea midline, supple Mouth: no lip lesion, mucus membranes moist Cardiovascular: S1S2 reg, no murmur, positive posterior tibial pulse bilateral, cesar 2+ LE pitting edema to hips, capillary refill less than 2 seconds Lungs: Mild bibasilar rales, no rhonchi, no accessory muscle use Abdominal: soft, L sided colostomy bag in place with brown formed stool, no blood in stool noted, large R sided surgical wound w/ dressing in place, no guarding, no appreciable organomegaly, normal bowel sounds Ext: Chronic venous stasis changes cesar LEs, no gross muscle atrophy, muscle strength 5 out of 5 in all 4 extremities grossly, no contractures Neuro: CN II-XI grossly intact, light touch intact all 4 extremities, finger to nose within normal limits Psych: Alert, oriented, appropriate affect Results CBC & Chem 7: 05/24/19 18:35 05/24/19 18:35 Labs: Abnormal Lab Results - Last 24 Hours (Table) 05/24/19 05/24/19 Range/Units 18:35 18:35 RBC 3.81 L (4.30-5.90) m/uL Hgb 9.3 L D (13.0-17.5) gm/dL Hct 30.5 L (39.0-53.0) % MCV 79.9 L D (80.0-100.0) fL MCH 24.3 L (25.0-35.0) pg MCHC 30.4 L (31.0-37.0) g/dL RDW 16.3 H (11.5-15.5) % Carbon Dioxide 33 H (22-30) mmol/L Glucose 100 H (74-99) mg/dL Total Protein 6.1 L (6.3-8.2) g/dL Albumin 3.1 L (3.5-5.0) g/dL Assessment and Plan Plan: Microcytic anemia -Unknown etiology, possible due to GIB -Will consult GI -Monitor CBC Chest discomfort, dyspnea -Continue to trend troponin in setting of significant cardiac history -Cardiology consult -Cardiac monitoring Large R sided post-surgical wound, hx of wound-vac -Wound not approximated -Will obtain Surgery consult due to size and complexity of the wound for further wound-care guidance Diastolic CHF exacerbation -BNP likely falsely low due to morbid obesity -Lasix 40 mg IVP q12h -Monitor BMP -I/Os -Fluid restriction -Daily weights Metabolic alkalosis, possibly due to chronic retention in setting of NARCISO and COPD -Monitor for now -Obtain baseline ABG Chronic conditions: HTN, HLD, NARCISO -C/w home meds, BiPAP DVT prophylaxis -IPCDs The patient is admitted with an anticipated less than 2 midnight stay for evaluation of anemia, chest discomfort CODE STATUS: Full Code Discussed with: Patient Anticipated discharge date: 1-[address]: Home A total of 40 minutes was spent on the care of this complex patient more than 50% of the time was spent in counseling and care coordination.
[2019-05-24] MEDS: oxyCODONE-APAP 7.5-325MG 1 EACH TAB PO PRN (23:30)
[2019-05-24] MEDS: IPRATROPIUM-ALBUTEROL 3 ML NEB INHALATION SCH (23:39)
[2019-05-25] MEDS ORDERED: HEPARIN SODIUM,PORCINE 5,000 UNIT/ML 1 ML VIAL SQ SCH
[2019-05-25] MEDS: IPRATROPIUM-ALBUTEROL 3 ML NEB INHALATION SCH ×10 (03:03→23:29)
[2019-05-25] MEDS: MORPHINE SULFATE 4 MG/ML SYRINGE IV PRN ×5 (04:30→21:50)
[2019-05-25] MEDS: oxyCODONE-APAP 7.5-325MG 1 EACH TAB PO PRN ×3 (05:33→18:03)
[2019-05-25 05:46] LABS: Anisocytosis Slight; Basophils % (A) 1 %; Eosinophils % (A) 0 %; HCT 33.6 % (39.0-53.0); HGB 9.7 gm/dL (13.0-17.5); Hypochromasia Marked; Lymphocytes # (A) 1.2 k/uL (1.0-4.8); Lymphocytes % (A) 18 %; MCH 23.7 pg (25.0-35.0); MCV 81.9 fL (80.0-100.0); Monocytes # (A) 0.2 k/uL (0-1.0); Monocytes % (A) 2 %; Neutrophils # (A) 5.2 k/uL (1.3-7.7); Neutrophils % (A) 78 %; Platelet Count 294 k/uL (150-450); Poikilocytosis Slight; RDW 16.2 % (11.5-15.5); WBC 6.7 k/uL (3.8-10.6)
[2019-05-25] MEDS: METOPROLOL SUCCINATE (ER) 50 MG TAB.ER.24H PO SCH (08:19)
[2019-05-25] MEDS: LOSARTAN 50 MG TAB PO SCH (08:19)
[2019-05-25] MEDS: FUROSEMIDE 10 MG/ML 4 ML VIAL IV SCH ×2 (08:19→21:50)
[2019-05-25] MEDS ORDERED: CLOPIDOGREL 75 MG TAB PO SCH (09:00)
[2019-05-25] MEDS ORDERED: ASPIRIN 325 MG TAB PO SCH (09:00)
--- NOTE | 2019-05-25 11:54 | P.PN ---
Subjective Progress Note Date: 05/25/19 Feels okay today, no chest pain no nausea vomiting hematochezia or hematemesis. Objective - Vital Signs Vital signs: Vital Signs Temp 98.0 F 05/25/19 07:00 Pulse 79 05/25/19 11:19 Resp 16 05/25/19 07:00 BP 136/84 05/25/19 07:00 Pulse Ox 98 05/25/19 07:00 Intake & Output 05/24/19 05/25/19 05/25/19 18:59 06:59 18:59 Intake Total 350 400 Output Total 250 300 Balance 100 100 Weight 158.757 kg 161.3 kg Intake: Oral 350 400 Output: Urine 250 300 Other: Voiding Method Urinal Urinal # Voids 4 4 - Exam General: non toxic, no distress Derm: Chronic bilateral lower extremity discoloration Head: atraumatic, normocephalic, symmetric Eyes: EOMI, no lid lag ENT: Nose and ears atraumatic Neck: No thyromegaly Mouth: no lip lesion, mucus membranes moist Cardiovascular: S1S2 reg, no murmur, cesar 2+ LE pitting edema to hips Lungs: Mild bibasilar rales, no rhonchi, no accessory muscle use Abdominal: soft, L sided colostomy bag in place large R sided surgical wound w/ dressing in place, no guarding, no appreciable, obese Ext: Chronic venous stasis changes cesar LEs, no gross muscle atrophy, muscle strength 5 out of 5 in all 4 extremities grossly, no contractures Neuro: CN II-XI grossly intact, light touch intact all 4 extremities, finger to nose within normal limits Psych: Alert, oriented, appropriate affect - Labs CBC & Chem 7: 05/25/19 05:24 05/24/19 18:35 Labs: Abnormal Lab Results - Last 24 Hours (Table) 05/24/19 05/24/19 05/25/19 Range/Units 18:35 18:35 05:24 RBC 3.81 L 4.10 L (4.30-5.90) m/uL Hgb 9.3 L D 9.7 L (13.0-17.5) gm/dL Hct 30.5 L 33.6 L (39.0-53.0) % MCV 79.9 L D (80.0-100.0) fL MCH 24.3 L 23.7 L (25.0-35.0) pg MCHC 30.4 L 29.0 L (31.0-37.0) g/dL RDW 16.3 H 16.2 H (11.5-15.5) % Carbon Dioxide 33 H (22-30) mmol/L Glucose 100 H (74-99) mg/dL Total Protein 6.1 L (6.3-8.2) g/dL Albumin 3.1 L (3.5-5.0) g/dL Assessment and Plan Plan: Microcytic anemia -Unknown etiology, possible due to GIB - consult GI, input appreciated. -Monitor CBC, stable at 9.3-9.7 Chest discomfort, dyspnea -Continue to trend troponin in setting of significant cardiac history -Cardiology consult, follow recommendations. -Cardiac monitoring Large R sided post-surgical wound, hx of wound-vac - Surgery consult due to size and complexity of the wound for further wound-care guidance Diastolic CHF exacerbation, acute on chronic -Lasix 40 mg IVP q12h -Monitor BMP -I/Os -Fluid restriction -Daily weights Metabolic alkalosis, possibly due to chronic retention in setting of NARCISO and COPD -Monitor for now Morbid obesity: BMI 48.2 Chronic conditions: HTN, HLD, NARCISO -C/w home meds, BiPAP DVT prophylaxis -IPCDs Observation CODE STATUS: Full Code Anticipated discharge place: Home likely tomorrow
[2019-05-25 13:30] LABS: Basophils # (A) 0.1 k/uL (0-0.2); Basophils % (A) 1 %; Eosinophils % (A) 0 %; HCT 33.4 % (39.0-53.0); HGB 9.9 gm/dL (13.0-17.5); Hypochromasia Marked; Lymphocytes # (A) 2.3 k/uL (1.0-4.8); Lymphocytes % (A) 28 %; MCH 24.1 pg (25.0-35.0); MCHC 29.5 g/dL (31.0-37.0); MCV 81.6 fL (80.0-100.0); Monocytes # (A) 0.5 k/uL (0-1.0); Monocytes % (A) 6 %; Neutrophils # (A) 4.9 k/uL (1.3-7.7); Neutrophils % (A) 62 %; Platelet Count 302 k/uL (150-450); Poikilocytosis Slight; RBC 4.09 m/uL (4.30-5.90); RDW 15.9 % (11.5-15.5); WBC 7.9 k/uL (3.8-10.6)
--- NOTE | 2019-05-25 13:32 | P.GSCN ---
<Dalila Gaitan - Last Filed: 05/25/19 13:26> History of Present Illness Consult date: 05/25/19 Reason for Consult: abdominal wound Requesting physician: Enzo Damian History of present illness: CHIEF COMPLAINT: abdominal wound HISTORY OF PRESENT ILLNESS: 63-year-old male who presented to emergency room with chief complaint of lower extremity pain. General surgery was consulted to evaluate abdominal wound. Patient examined this point bedside. Patient underwent laparoscopic cholecystectomy in December [address] Bean. Postoperatively, patient developed a bile leak. ERCP was attempted by Dr. Burrell but was unsuccessful. The patient was transferred to [facility] for ERCP and CBD stent placement. The patient reports he had multiple complications while at [facility], but he is a bit of a poor historian. He states he developed an abdominal infection and required a colostomy to be performed. He also reports developing an abdominal wound. He has been utilizing wound VAC therapy for the past several weeks. He states this is [facility]. He states he does not follow in the wound care center. PAST MEDICAL HISTORY: See list. PAST SURGICAL HISTORY: See list. MEDICATIONS: See list. ALLERGIES: See list. SOCIAL HISTORY: No illicit drug use. REVIEW OF SYSTEMS: CONSTITUTIONAL: Denies fever or chills. HEENT: Denies blurred vision, vision changes, or eye pain. Denies hemoptysis ENDOCRINE: Denies heat or cold intolerance. CARDIOVASCULAR: Denies chest pain or pressure. RESPIRATORY: No shortness of breath. GASTROINTESTINAL: Denies abdominal pain. Denies nausea or vomiting. Reports chronic abdominal wound. Reports colostomy. NEURO: Denies history of seizures. PSYCH: No depression or suicidal ideation HEMATOLOGIC: Denies bleeding disorders. LYMPHATIC: The patient denies any lumps and bumps around the neck. GENITOURINARY: Denies any blood in urine or increased urinary frequency. MUSCULOSKELETAL: Reports discomfort to bilateral lower extremities. Denies decreased range of motion beyond patients baseline. SKIN: Denies pruitis. Denies rash. PHYSICAL EXAM: VITAL SIGNS: Reviewed GENERAL: Well-developed in no acute distress. HEENT: No sclera icterus. Extraocular movements grossly intact. Moist buccal mucosa. Head is atraumatic, normocephalic. Hears conversational speech. No nasal drainage. NECK: Supple without lymphadenopathy. CHEST: Non-labored respirations and equal bilateral excursions. CARDIOVASCULAR: Regular rate with regular rhythm. Palpable 2+ radial pulses. ABDOMEN: Obese. Soft. Nondistended. Nontender. Ostomy with stool and gas noted. Chronic abdominal wound to right side of abdomen with gauze packing noted. MUSCULOSKELETAL: No clubbing or cyanosis. NEUROLOGIC: No focal or lateralizing signs. Cranial nerves II through XII grossly intact. PSYCH: Appropriate affect. Alert and oriented to person, place and time. SKIN: Chronic venous stasis changes to bilateral lower extremities. Well perfused. Good skin turgor. LABORATORY DATA: WBC 6.7. Hemoglobin 9.7. Platelet count 294. IMAGING: Wrist x-ray: Negative right wrist exam Chest x-ray: Negative for acute process. ASSESSMENT: 1. Chronic abdominal wound, utilizing wound vac therapy outpatient 2. History of colostomy 3. History of laparoscopic cholecystectomy with postoperative bile leak and attempted ERCP, subsequently transfer to [facility] for reattempted ERCP and CBD stent placement PLAN: 1. Okay to have wound vac placed during hospital stay from general surgery standpoint. If hospital stay is going to be short, may continue to utilize wet to dry dressings until discharge. Will consult ID for further wound vac management 2. No surgical intervention recommended from a general suurgery standpoint. Patient reports he has an appointment scheduled with his surgeon at [facility] next week. Patient encouraged to keep scheduled appointment. 3. We will sign off. Please re-consult if needed. Nurse practitioner note has been reviewed by physician. Signing provider agrees with the documented findings, assessment, and plan of care. Past Medical History Past Medical History: Coronary Artery Disease (CAD), Chest Pain / Angina, COPD, CVA/TIA, Hyperlipidemia, Hypertension, Myocardial Infarction ([place]), Osteoarthritis (OA), Respiratory Disorder, Sleep Apnea/CPAP/BIPAP Additional Past Medical History / Comment(s): obesity, obesity hypoventilation syndrome, suspected CHF and cor pulmonale, previous history of defibrillator placement, CVA in 2004, chronic back pain secondary to DDD and spinal canal stenosis, history of vertebral fracture L2 through L5, chronic lower extremity edema, diverticular disease, L knee fx in past and torn R rotator cuff, cellulitis, recent hospitalization for gallbladder issues, states doesn't normally see sales and business development manager, just visiting physician although saw one in hospital recently Last Myocardial Infarction Date:: 2011 History of Any Multi-Drug Resistant Organisms: None Reported Past Surgical History: Bowel Resection, Cholecystectomy, Heart Catheterization With Stent, Hernia Repair, Pacemaker Additional Past Surgical History / Comment(s): PTCA with stent (4 total), 04/05/13 [employer] pacemaker, 1990's umbilical hernia repair, colonoscopy, circumcision, R eye surgery for strabismus, gallbladder stents One removed from HF on 03/19, Colostomy with open wounds. Past Anesthesia/Blood Transfusion Reactions: No Reported Reaction Date of Last Stent Placement:: 2012 Type of Cardiac Device: Permanent Pacemaker Device Placement Date:: 04/05/13 Past Psychological History: No Psychological Hx Reported Smoking Status: Current some day smoker Past Alcohol Use History: None Reported Past Drug Use History: None Reported - Past Family History Father Family Medical History: Musculoskeletal Disorder, Neurologic Disorder Additional Family Medical History / Comment(s): Father had parkinson's dx and at age 84 yrs. Mother Family Medical History: Myocardial Infarction ([place]) Additional Family Medical History / Comment(s): Mother had 3 vessel CABG. She of a massive [place] at the age of 53 yrs. Medications and Allergies Home Medications Medication Instructions Recorded Confirmed Type Isosorbide Mononitrate ER [Imdur] 60 mg PO DAILY 04/25/17 05/25/19 History Losartan [Cozaar] 50 mg PO DAILY #30 tab 04/27/17 05/24/19 Rx Furosemide [Lasix] 40 mg PO DAILY 02/10/18 05/24/19 History Cyanocobalamin (Vitamin B-12) 1,000 mcg PO DAILY 04/16/18 05/24/19 History [Vitamin B-12] Metoprolol Succinate [Toprol XL] 50 mg PO DAILY 02/14/19 05/24/19 History oxyCODONE HCL/ACETAMINOPHEN 1 tab PO Q6H PRN 02/14/19 05/24/19 History [Percocet 7.5-325 mg] Albuterol Nebulized [Ventolin 2.5 mg INHALATION RT-QID 03/20/19 05/24/19 History Nebulized] Aspirin EC [Ecotrin] 325 mg PO DAILY 03/20/19 05/24/19 History Clopidogrel [Plavix] 75 mg PO DAILY 03/20/19 05/24/19 History Sennosides-Docusate Sodium 1 tab PO BID PRN 03/20/19 05/24/19 History [Senokot-S] Ergocalciferol [Vitamin D2] 50,000 unit PO Q7D 05/25/19 05/25/19 History Ferrous Sulfate [Feosol] 325 mg PO DAILY 05/25/19 05/25/19 History Menthol [Biofreeze] 1 applic TOPICAL QID PRN 05/25/19 05/25/19 History Pro-Stat 30 ml PO BID 05/25/19 05/25/19 History Allergies Allergy/AdvReac Type Severity Reaction Status Date / Time No Known Allergies Allergy Verified 05/24/19 20:52 Surgical - Exam Vital Signs Temp Pulse Resp BP Pulse Ox 98.3 F 81 17 116/66 97 05/24/19 17:21 05/24/19 17:21 05/24/19 17:21 05/24/19 17:21 05/24/19 17:21 Results - Labs 05/25/19 05:24 05/24/19 18:35 Abnormal Lab Results - Last 24 Hours (Table) 05/24/19 05/24/19 05/25/19 Range/Units 18:35 18:35 05:24 RBC 3.81 L 4.10 L (4.30-5.90) m/uL Hgb 9.3 L D 9.7 L (13.0-17.5) gm/dL Hct 30.5 L 33.6 L (39.0-53.0) % MCV 79.9 L D (80.0-100.0) fL MCH 24.3 L 23.7 L (25.0-35.0) pg MCHC 30.4 L 29.0 L (31.0-37.0) g/dL RDW 16.3 H 16.2 H (11.5-15.5) % Carbon Dioxide 33 H (22-30) mmol/L Glucose 100 H (74-99) mg/dL Total Protein 6.1 L (6.3-8.2) g/dL Albumin 3.1 L (3.5-5.0) g/dL Diabetes panel 05/24/19 Range/Units 18:35 Sodium 139 (137-145) mmol/L Potassium 4.2 (3.5-5.1) mmol/L Chloride 101 (98-107) mmol/L Carbon Dioxide 33 H (22-30) mmol/L BUN 16 (9-20) mg/dL Creatinine 0.78 (0.66-1.25) mg/dL Glucose 100 H (74-99) mg/dL Calcium 8.8 (8.4-10.2) mg/dL AST 20 (17-59) U/L ALT 12 (4-49) U/L Alkaline Phosphatase 90 (38-126) U/L Total Protein 6.1 L (6.3-8.2) g/dL Albumin 3.1 L (3.5-5.0) g/dL Calcium panel 05/24/19 Range/Units 18:35 Calcium 8.8 (8.4-10.2) mg/dL Albumin 3.1 L (3.5-5.0) g/dL Pituitary panel 05/24/19 Range/Units 18:35 Sodium 139 (137-145) mmol/L Potassium 4.2 (3.5-5.1) mmol/L Chloride 101 (98-107) mmol/L Carbon Dioxide 33 H (22-30) mmol/L BUN 16 (9-20) mg/dL Creatinine 0.78 (0.66-1.25) mg/dL Glucose 100 H (74-99) mg/dL Calcium 8.8 (8.4-10.2) mg/dL Adrenal panel 05/24/19 Range/Units 18:35 Sodium 139 (137-145) mmol/L Potassium 4.2 (3.5-5.1) mmol/L Chloride 101 (98-107) mmol/L Carbon Dioxide 33 H (22-30) mmol/L BUN 16 (9-20) mg/dL Creatinine 0.78 (0.66-1.25) mg/dL Glucose 100 H (74-99) mg/dL Calcium 8.8 (8.4-10.2) mg/dL Total Bilirubin 0.3 (0.2-1.3) mg/dL AST 20 (17-59) U/L ALT 12 (4-49) U/L Alkaline Phosphatase 90 (38-126) U/L Total Protein 6.1 L (6.3-8.2) g/dL Albumin 3.1 L (3.5-5.0) g/dL <Berta Francois N - Last Filed: 05/26/19 11:43> History of Present Illness History of present illness: As above, recommend infectious disease for chronic wound care. No surgical intervention needed. We'll follow as needed. Patient to follow-up with his surgical provider at [facility]. Surgical - Exam Vital Signs Temp Pulse Resp BP Pulse Ox 98.3 F 81 17 116/66 97 05/24/19 17:21 05/24/19 17:21 05/24/19 17:21 05/24/19 17:21 05/24/19 17:21 Results - Labs 05/26/19 06:51 05/26/19 06:51 Abnormal Lab Results - Last 24 Hours (Table) 05/25/19 05/25/19 05/26/19 Range/Units 11:50 11:50 06:51 RBC 4.09 L 3.76 L (4.30-5.90) m/uL Hgb 9.9 L 9.1 L (13.0-17.5) gm/dL Hct 33.4 L 30.5 L (39.0-53.0) % MCH 24.1 L 24.1 L (25.0-35.0) pg MCHC 29.5 L 29.8 L (31.0-37.0) g/dL RDW 15.9 H 16.2 H (11.5-15.5) % Carbon Dioxide (22-30) mmol/L Glucose (74-99) mg/dL Iron 15 L (65-175) ug/dL % Saturation 4.78 L (15.00-50.00) Ferritin 19.7 L (22.0-322.0) ng/mL Total Protein (6.3-8.2) g/dL Albumin (3.5-5.0) g/dL 05/26/19 Range/Units 06:51 RBC (4.30-5.90) m/uL Hgb (13.0-17.5) gm/dL Hct (39.0-53.0) % MCH (25.0-35.0) pg MCHC (31.0-37.0) g/dL RDW (11.5-15.5) % Carbon Dioxide 35 H (22-30) mmol/L Glucose 105 H (74-99) mg/dL Iron (65-175) ug/dL % Saturation (15.00-50.00) Ferritin (22.0-322.0) ng/mL Total Protein 6.1 L (6.3-8.2) g/dL Albumin 2.9 L (3.5-5.0) g/dL Diabetes panel 05/26/19 Range/Units 06:51 Sodium 140 (137-145) mmol/L Potassium 3.8 (3.5-5.1) mmol/L Chloride 100 (98-107) mmol/L Carbon Dioxide 35 H (22-30) mmol/L BUN 17 (9-20) mg/dL Creatinine 0.79 (0.66-1.25) mg/dL Glucose 105 H (74-99) mg/dL Calcium 8.8 (8.4-10.2) mg/dL AST 36 (17-59) U/L ALT 29 (4-49) U/L Alkaline Phosphatase 74 (38-126) U/L Total Protein 6.1 L (6.3-8.2) g/dL Albumin 2.9 L (3.5-5.0) g/dL Calcium panel 05/26/19 Range/Units 06:51 Calcium 8.8 (8.4-10.2) mg/dL Albumin 2.9 L (3.5-5.0) g/dL Pituitary panel 05/26/19 Range/Units 06:51 Sodium 140 (137-145) mmol/L Potassium 3.8 (3.5-5.1) mmol/L Chloride 100 (98-107) mmol/L Carbon Dioxide 35 H (22-30) mmol/L BUN 17 (9-20) mg/dL Creatinine 0.79 (0.66-1.25) mg/dL Glucose 105 H (74-99) mg/dL Calcium 8.8 (8.4-10.2) mg/dL Adrenal panel 05/26/19 Range/Units 06:51 Sodium 140 (137-145) mmol/L Potassium 3.8 (3.5-5.1) mmol/L Chloride 100 (98-107) mmol/L Carbon Dioxide 35 H (22-30) mmol/L BUN 17 (9-20) mg/dL Creatinine 0.79 (0.66-1.25) mg/dL Glucose 105 H (74-99) mg/dL Calcium 8.8 (8.4-10.2) mg/dL Total Bilirubin 0.3 (0.2-1.3) mg/dL AST 36 (17-59) U/L ALT 29 (4-49) U/L Alkaline Phosphatase 74 (38-126) U/L Total Protein 6.1 L (6.3-8.2) g/dL Albumin 2.9 L (3.5-5.0) g/dL Assessment and Plan (1) Morbid obesity with BMI of 45.0-49.9, adult Current Visit: Yes Status: Acute Code(s): E66.01 - MORBID (SEVERE) OBESITY DUE TO EXCESS CALORIES; Z68.42 - BODY MASS INDEX (BMI) 45.0-49.9, ADULT SNOMED Code(s): 805076906 (2) Colostomy in place Current Visit: Yes Status: Acute Code(s): Z93.3 - COLOSTOMY STATUS SNOMED Code(s): 727119766 (3) Chronic wound infection of abdomen Current Visit: Yes Status: Acute Code(s): S31.109A - UNSP OPN WND ABD WALL, UNSP Q W/O PENET PERIT CAV, INIT; L08.9 - LOCAL INFECTION OF THE SKIN AND SUBCUTANEOUS TISSUE, UNSP SNOMED Code(s): 51624134 (4) Diastolic CHF Current Visit: No Status: Acute Code(s): I50.30 - UNSPECIFIED DIASTOLIC (CONGESTIVE) HEART FAILURE SNOMED Code(s): 813456093 (5) History of COPD Current Visit: No Status: Acute Code(s): Z87.09 - PERSONAL HISTORY OF OTHER DISEASES OF THE RESPIRATORY SYSTEM SNOMED Code(s): 429978448 (6) History of coronary artery disease Current Visit: No Status: Acute Code(s): Z86.79 - PERSONAL HISTORY OF OTHER DISEASES OF THE CIRCULATORY SYSTEM SNOMED Code(s): 105442429 (7) History of myocardial infarction Current Visit: No Status: Acute Code(s): I25.2 - OLD MYOCARDIAL INFARCTION SNOMED Code(s): 514503094 (8) Obstructive sleep apnea Current Visit: No Status: Chronic Code(s): G47.33 - OBSTRUCTIVE SLEEP APNEA (ADULT) (PEDIATRIC) SNOMED Code(s): 67784225
--- NOTE | 2019-05-25 16:45 | US ---
EXAMINATION TYPE: US venous doppler duplex LE DATE OF EXAM: 05/25/2019 4:25 PM COMPARISON: CLINICAL HISTORY: swelling. Cellulitis. No hx blood clots. On blood thinners. Pain. SIDE PERFORMED: Bilateral TECHNIQUE: The lower extremity deep venous system is examined utilizing real time linear array sonog daniel with graded compression, doppler sonography and color-flow sonography. VESSELS IMAGED: External Iliac Vein (EIV) Common Femoral Vein Deep Femoral Vein Greater Saphenous Vein * Femoral Vein Popliteal Vein Small Saphenous Vein * Proximal Calf Veins (* superficial vessels) limited due to patient body habitus Right Leg: Negative for acute DVT Left Leg: Negative for acute DVT IMPRESSION: No evidence of deep venous thrombosis in both legs.
--- NOTE | 2019-05-25 17:17 | CONS ---
CONSULTATION DATE OF DICTATION: 05/25/2019 REASON FOR CONSULTATION: Anemia. HISTORY OF PRESENT ILLNESS: The patient is a 63-year-old pleasant white male admitted to the hospital because of shortness of breath and chest discomfort. In the hospital he was noted to have anemia with a hemoglobin of 9.3 g/dL. Apparently his hemoglobin was 15.2 in February of this year. The patient, however, denies any abdominal pain. He reports no nausea, vomiting. Denies any rectal bleeding or melena. The patient underwent bladder surgery in December of this year, which was complicated by a bile leak. An ERCP was attempted here and was unsuccessful, and hence patient was transferred to [facility]. No records are available. However, the patient states that he underwent an ERCP with CBD stent placement for the bile leak. However, he continued to have persistent abdominal pain, and 3 days later he underwent exploratory laparotomy with a colostomy. No records available, and patient is not able to provide adequate history. Patient subsequently underwent rehab therapy for a couple of months. PAST MEDICAL HISTORY: His past medical history is significant for: 1. Coronary artery disease. 2. Congestive heart failure. 3. History of CVA in the past. 4. Degenerative joint disease. 5. COPD. 6. Hypertension. 7. Sleep apnea. 8. Morbid obesity. 9. Spinal cord stenosis. 10.Spinal canal stenosis. 11.Diverticulosis. PAST SURGICAL HISTORY: 1. Cholecystectomy followed by bile leak in November of this year. 2. Colostomy placement at [facility] in December of this year. 3. History of hiatal hernia repair. 4. Pacemaker implantation. MEDICATIONS: Medications at home include: 1. Imdur. 2. Cozaar. 3. Lasix. 4. Vitamin B1. 5. Toprol. 6. Senokot. 7. Aspirin. 8. Plavix. 9. Percocet. ALLERGIES: NONE. SOCIAL HISTORY: Current smoker. No alcohol use. FAMILY HISTORY: Father had Parkinson's disease and mother had coronary artery disease, status post [place]. REVIEW OF SYSTEMS: CARDIOPULMONARY: He does complain of some shortness of breath but denies any chest pain. NEUROLOGY: Unremarkable. PSYCHIATRY: Unremarkable. ENT/VISION: Unremarkable. CONSTITUTIONAL: Weight loss of 20 pounds in the last 6 months. No fever, chills, night sweats. ENDOCRINE: Unremarkable. GI: As mentioned above. HEMATOLOGY: Anemia. PHYSICAL EXAMINATION: He appears comfortable. No apparent distress. Vital signs are stable. Blood pressure is 100/65, pulse rate 74, temperature 98.1. HEENT examination unremarkable. Conjunctivae pink. Sclerae anicteric. Oral cavity no lesions. NECK: No JVD or lymph node enlargement. CHEST: Clear to auscultation. HEART: Regular rate and rhythm. ABDOMEN: Soft. Bowel sounds are positive. It was obese. Colostomy in place, which had brown stool. There is an open wound in the right lower quadrant area. EXTREMITIES: No pedal edema. SKIN: No rashes. NEUROLOGIC: Alert and oriented x3. No focal deficits. LABS: Labs from today show WBC is 7.3, hemoglobin 9.3, platelets 287. Basic metabolic panel is within normal limits. Iron studies are pending. Repeat CBC today: hemoglobin 9.9. IMPRESSION: 1. Normocytic normochromic anemia, most likely related to anemia of chronic disease. Clinically no evidence of active ongoing bleeding. Possibility of an occult GI blood loss cannot be entirely excluded. 2. Chest pain, shortness of breath, which have gradually improved. 3. Recent episode of recent cholecystectomy in December of this year followed by bile leak. Patient underwent ERCP with CBD stent placement at [facility]. 4. History of colostomy done at [facility]. Records not available. 5. Open wound in the right lower quadrant area. Surgery is following the patient. RECOMMENDATIONS: 1. Will obtain iron studies to see if we are dealing with iron deficiency anemia. 2. No plans for any endoscopic intervention at the present time because of multiple comorbid conditions and ongoing problems. 3. Monitor CBC on a daily basis. 4. Will follow with you closely during his hospital stay. Thank you for this consultation. MMODL / IJN: [id number] /
[2019-05-25 18:29] LABS: % Iron Saturation 4.78 (15.00-50.00)
[2019-05-25 18:51] LABS: Ferritin 19.7 ng/mL (22.0-322.0)
[2019-05-25] MEDS: SODIUM CHLORIDE 0.9% 1,000 ML IV SCH (21:55)
--- NOTE | 2019-05-25 22:56 | CONS ---
CONSULTATION Mr. Lares is a 63-year-old male who presented with progressive dyspnea, peripheral edema and fatigue. He has a known history of coronary artery disease, status post stenting, history of obstructive sleep apnea, and prior episode of congestive heart failure with diastolic dysfunction. The patient came in with progressive fatigue with lack of energy as well as worsening of his peripheral edema. He has a known history of chronic obstructive lung disease and had a prior admission with similar findings. The patient underwent surgical intervention on his abdomen recently and was transferred to [facility], where he had colostomy. He denies any chest pain. He denies any dizziness or palpitations. He had mild nausea. He is not very active physically. MEDICATIONS: His medications at home include: 1. Toprol-XL 50 mg daily. 2. Cozaar 50 mg daily. 3. Imdur 60 mg daily. 4. Lasix 40 mg daily. 5. Iron. 6. Plavix 75 mg daily. 7. Aspirin. REVIEW OF SYSTEMS: RESPIRATORY SYSTEM: He has chronic obstructive lung disease with chronic dyspnea on exertion. He has obstructive sleep apnea. GI SYSTEM: He has had the recent surgical intervention with colostomy and open wound. SYSTEM: No dysuria or hematuria. NERVOUS SYSTEM: No stroke or seizure. PHYSICAL EXAMINATION: He is a 63-year-old male, obese, alert, oriented, in no apparent distress. Blood pressure 100/60 with a heart rate in the 60s. HEAD: Normocephalic. EYES: Sclerae anicteric. NECK: Good carotid upstroke. No bruit. LUNGS: Clear to auscultation with decreased air exchange. No wheezes. HEART: Regular rate and rhythm. S1, S2. No S3. Systolic murmur. No diastolic murmur. No rub. ABDOMEN: Soft obese. Colostomy noted. noted. EXTREMITIES: Plus two edema bilaterally. LAB DATA/IMAGING: Hemoglobin of 9.9, platelet count of 302, white blood cell count of 7.9. BUN and creatinine of 16 and 0.78. Troponin less than 0.012. NT-proBNP of 237. The patient's hemoglobin in February was 13.9. His EKG reveals sinus mechanism, normal axis and intervals. No acute changes. He underwent a duplex scan of the lower extremities that showed no evidence of DVT. The patient had a recent cholecystectomy and had a bile leak, so he underwent ERCP with common bile duct stent placement at [facility] and colostomy, as noted. The patient had prior echocardiogram that showed no evidence of segmental wall motion abnormality. His last echocardiogram was performed in September of this year, and at that time his ejection fraction was 50% to 55%. IMPRESSION: 1. Symptoms of progressive dyspnea and fatigue with peripheral edema. Patient's NT- proBNP is normal. There is no clear evidence to suggest acute congestive heart failure at this time. The peripheral edema could be related to his obesity. 2. Anemia; workup in progress. 3. History of coronary artery disease. 4. Prior history of diastolic congestive heart failure. 5. Morbid obesity. 6. Status post colostomy. 7. Open wound. RECOMMENDATIONS: From the cardiac standpoint, there is no evidence of active cardiac issues. Will continue present therapy, follow his renal function. Patient has been receiving diuretics. Depending on his progress, further recommendations will be made. Thank you for this consult. Will follow with you. MMISAAC / IJN: [id number] /
[2019-05-26] MEDS: oxyCODONE-APAP 7.5-325MG 1 EACH TAB PO PRN ×4 (00:39→23:19)
[2019-05-26] MEDS: IPRATROPIUM-ALBUTEROL 3 ML NEB INHALATION SCH ×6 (04:14→19:45)
[2019-05-26] MEDS: MORPHINE SULFATE 4 MG/ML SYRINGE IV PRN ×4 (04:54→20:34)
[2019-05-26 07:23] LABS: Anisocytosis Slight; Basophils % (A) 1 %; Eosinophils # (A) 0.2 k/uL (0-0.7); Eosinophils % (A) 3 %; HCT 30.5 % (39.0-53.0); HGB 9.1 gm/dL (13.0-17.5); Hypochromasia Marked; Lymphocytes # (A) 1.9 k/uL (1.0-4.8); Lymphocytes % (A) 32 %; MCH 24.1 pg (25.0-35.0); MCHC 29.8 g/dL (31.0-37.0); MCV 81.1 fL (80.0-100.0); Mean Platelet Volume 7.5; Monocytes # (A) 0.4 k/uL (0-1.0); Monocytes % (A) 6 %; Neutrophils # (A) 3.4 k/uL (1.3-7.7); Neutrophils % (A) 57 %; Platelet Count 284 k/uL (150-450); Poikilocytosis Slight; RBC 3.76 m/uL (4.30-5.90); RDW 16.2 % (11.5-15.5); WBC 5.9 k/uL (3.8-10.6)
[2019-05-26 07:34] LABS: ALT 29 U/L (4-49); AST 36 U/L (17-59); African American GFR (CKD) >90 (>60 ml/min/1.73 sqM); Albumin 2.9 g/dL (3.5-5.0); Alkaline Phosphatase 74 U/L (38-126); Anion Gap 5 mmol/L; Blood Urea Nitrogen 17 mg/dL (9-20); Calcium 8.8 mg/dL (8.4-10.2); Carbon Dioxide 35 mmol/L (22-30); Chloride 100 mmol/L (98-107); Glucose 105 mg/dL (74-99); Non-African American GFR(CKD) >90 (>60 ml/min/1.73 sqM); Potassium 3.8 mmol/L (3.5-5.1); Sodium 140 mmol/L (137-145); Total Bilirubin 0.3 mg/dL (0.2-1.3); Total Protein 6.1 g/dL (6.3-8.2)
[2019-05-26] MEDS: FUROSEMIDE 10 MG/ML 4 ML VIAL IV SCH ×2 (07:53→20:35)
[2019-05-26] MEDS: LOSARTAN 50 MG TAB PO SCH (07:54)
[2019-05-26] MEDS: METOPROLOL SUCCINATE (ER) 50 MG TAB.ER.24H PO SCH (07:54)
[2019-05-26] MEDS: SODIUM FERRIC GLUCONAT-SUCROSE 125 MG in SODIUM CHLORIDE 0.9% 100 ML IVPB SCH (09:30)
--- NOTE | 2019-05-26 10:08 | P.PN ---
Subjective Progress Note Date: 05/26/19 Principal diagnosis: Lower extremity cellulitis Patient was complaining from bilateral legs pain as well as right hand pain. No shortness of breath. No stomach pain. Objective - Vital Signs Vital signs: Vital Signs Temp 98.8 F 05/26/19 07:53 Pulse 69 05/26/19 07:57 Resp 18 05/26/19 07:53 BP 118/54 05/26/19 07:53 Pulse Ox 92 L 05/26/19 07:53 Intake & Output 05/25/19 05/26/19 05/26/19 18:59 06:59 18:59 Intake Total 1200 Output Total 300 350 600 Balance 900 -350 -600 Weight 160.6 kg Intake: Oral 1200 Output: Urine 300 350 600 Other: Voiding Method Urinal Urinal Urinal # Voids 4 1 # Bowel Movements 1 - Exam General: non toxic, no distress Derm: Chronic bilateral lower extremity discoloration Head: atraumatic, normocephalic, symmetric Eyes: EOMI, no lid lag ENT: Nose and ears atraumatic Neck: No thyromegaly Mouth: no lip lesion, mucus membranes moist Cardiovascular: S1S2 reg, no murmur, cesar 2+ LE pitting edema to hips Lungs: Mild bibasilar rales, no rhonchi, no accessory muscle use Abdominal: soft, L sided colostomy bag in place large R sided surgical wound w/ dressing in place, no guarding, no appreciable, obese Ext: Chronic venous stasis changes cesar LEs, no gross muscle atrophy, muscle strength 5 out of 5 in all 4 extremities grossly, no contractures Neuro: CN II-XI grossly intact, light touch intact all 4 extremities, finger to nose within normal limits Psych: Alert, oriented, appropriate affect - Labs CBC & Chem 7: 05/26/19 06:51 05/26/19 06:51 Labs: Abnormal Lab Results - Last 24 Hours (Table) 05/25/19 05/25/19 05/26/19 Range/Units 11:50 11:50 06:51 RBC 4.09 L 3.76 L (4.30-5.90) m/uL Hgb 9.9 L 9.1 L (13.0-17.5) gm/dL Hct 33.4 L 30.5 L (39.0-53.0) % MCH 24.1 L 24.1 L (25.0-35.0) pg MCHC 29.5 L 29.8 L (31.0-37.0) g/dL RDW 15.9 H 16.2 H (11.5-15.5) % Carbon Dioxide (22-30) mmol/L Glucose (74-99) mg/dL Iron 15 L (65-175) ug/dL % Saturation 4.78 L (15.00-50.00) Ferritin 19.7 L (22.0-322.0) ng/mL Total Protein (6.3-8.2) g/dL Albumin (3.5-5.0) g/dL 05/26/19 Range/Units 06:51 RBC (4.30-5.90) m/uL Hgb (13.0-17.5) gm/dL Hct (39.0-53.0) % MCH (25.0-35.0) pg MCHC (31.0-37.0) g/dL RDW (11.5-15.5) % Carbon Dioxide 35 H (22-30) mmol/L Glucose 105 H (74-99) mg/dL Iron (65-175) ug/dL % Saturation (15.00-50.00) Ferritin (22.0-322.0) ng/mL Total Protein 6.1 L (6.3-8.2) g/dL Albumin 2.9 L (3.5-5.0) g/dL Assessment and Plan Plan: Microcytic iron deficiency anemia -Possibly due to GIB -GI consulted, no plans for scopes -Start IV iron. -Monitor CBC Chest discomfort, dyspnea -Negative trops Large R sided post-surgical wound, hx of wound-vac - Surgery consulted, need to follow with wound care Diastolic CHF exacerbation, acute on chronic -Lasix 40 mg IVP q12h -Monitor BMP and I/Os -Fluid restriction -Daily weights Metabolic alkalosis, possibly due to chronic retention in setting of NARCISO and COPD -Monitor for now Morbid obesity: BMI 48.2 Chronic conditions: HTN, HLD, NARCISO -C/w home meds, BiPAP DVT prophylaxis -IPCDs Observation CODE STATUS: Full Code Anticipated discharge: 1-2 days Disposition: Home
--- NOTE | 2019-05-26 10:21 | CONS ---
CONSULTATION DATE OF SERVICE: 05/25/2019. REASON FOR STAY: Abdominal wound with wound VAC management and lower extremity swelling, question of cellulitis. HISTORY OF PRESENT ILLNESS: The patient is a 63-year-old male with a past medical history significant for laparoscopic cholecystectomy a subsequent developing a biliary leak for which the patient did have ERCP with stent and subsequent complication requiring . The patient also subsequently had an abdominal wound postsurgical, which is currently being treated with wound VAC by his [facility] physician. The patient is now presenting to the ER at [facility] with bilateral extremity swelling and redness and pain. Pain has mostly marked in his left leg area along with some shortness of breath. Pain to the leg is more of a dull, aching and sharp, about 4-5 out of 10 and no radiation with associated swelling and some redness. He did have some chills but denies any high- grade fever. On arrival to the ER, the patient was afebrile and his white count has been normal. Surgery was initially consulted for management of his wound VAC. Follow up made to manage his wound VAC as well as his lower extremity swelling. The patient currently antibiotic therapy. REVIEW OF SYSTEMS: Positive points have been mentioned in HPI. Rest of systems negative. PAST MEDICAL HISTORY: Significant for congestive heart failure, coronary artery disease, CVA, osteoarthritis, COPD, morbid obesity, chronic back pain, cholecystitis. PAST SURGICAL HISTORY: Cholecystectomy, colostomy, hiatal hernia repair, pacemaker placement. SOCIAL HISTORY: The patient is a current smoker. Denies any drinking or drug use. FAMILY HISTORY: Mother history of coronary artery disease. Father history of Parkinson disease. ALLERGIES: No known drug allergies. MEDICATIONS: Include the patient is currently on DuoNeb, Lasix, Cozaar, Toprol-XL, morphine sulfate, Narcan, Zofran, Percocet, Senokot. PHYSICAL EXAMINATION: Blood pressure 150/66, pulse of 76, temperature 98.3. He is 93% on room air. General description is a middle-aged male lying in bed in no distress. No tachypnea or accessory muscles of respiration use. HEENT: Shows slight pallor. No scleral icterus. Oral mucous membranes dry. No significant erythema or thrush. Neck: Trachea central. No thyromegaly. LUNGS unlabored breathing. Clear to auscultation anteriorly. No wheeze or crackles. HEART S1, S2. Regular rate and rhythm. ABDOMEN: Soft. The patient did have a midline lower abdominal wound. The wound base looks clean with exposed. No surrounding swelling and redness or any drainage. Lower extremities: The patient did have diffuse swelling and redness which is more marked in the left leg, slightly warm and tender to touch. No skin breakdown or any drainage. Neurologically: The patient is awake, alert and oriented times three. Mood and affect normal. LABS: Hemoglobin 9.8, white count 10.9 with a BUN of 16, creatinine 0.78. DIAGNOSTIC IMPRESSION/PLAN: 1. Patient with abdominal wound, postsurgical. The wound base looks clean with no evidence of any secondary cellulitis. We will recommend local wound care currently with wet-to-dry dressing changes as already mentioned. The patient may be discharged home soon. If not, we will recommend placement of the wound VAC, black foam, continuous pressure 125 mmHg to be changed Tuesday, and Tuesday. 2. The patient did have lower extremity swelling with minimal redness with recent hospital stays. We will make sure we are not dealing with case of deep vein thrombosis for which lower extremity Dopplers will be done which are negative. We will advise an Manpreet wrap to the leg to keep the swelling down. For mild cellulitis, we will start the patient on cefazolin 2 g q.8 hours. 3. We will follow up on his clinical condition and adjust medication further if needed. Thank you for this consultation. We will follow this patient with you. MMODL / IJN: [id number] /
--- NOTE | 2019-05-26 14:12 | PN ---
PROGRESS NOTE Mr. Watson is a gentleman with anemia. He has multiple comorbid conditions and previous stenting performed as well. However, he is resting comfortably at the time of my evaluation, was seen by Dr. Victoria yesterday. He has no chest pain or shortness of breath at the time of my evaluation. He has had previous surgeries and also has a colostomy and has had a cholecystectomy performed. He is not on aspirin or Plavix given his GI bleeding issues with the anemia workup in progress. Troponin levels are normal. He is resting comfortably. I am recommending that from a cardiac standpoint, we should continue current medical regimen which includes metoprolol succinate, and he is also on Lasix 40 mg q.12 hours. He will be also receiving intravenous iron as well. We will continue to see the patient as needed from a cardiac standpoint. Vitals are stable. Blood pressure is 118/70, pulse rate is 70 per minute. No JVD of significance. There is no carotid bruit. Heart exam reveals S1, S2 heard normally. Short systolic murmur is audible. Lungs revealed diminished air entry. Abdomen and lower exam is unchanged. There is a colostomy noted. Wound noted unchanged. I have advised that we continue beta blockers and also aspirin to be resumed as soon as possible once the anemia workup is resolved. We will see the patient as needed. MMODL / IJN: [id number] /
--- NOTE | 2019-05-26 17:42 | PN ---
PROGRESS NOTE DATE OF SERVICE: 05/26/2019. REASON FOR FOLLOWUP: 1. Lower extremity swelling and question of left leg cellulitis. 2. Abdominal wound. INTERVAL HISTORY: The patient is currently afebrile, has been breathing comfortably. Denies having any chest pain or any cough. No abdominal pain. Still has swelling in the legs and mild discomfort. No open wound or any drainage. PHYSICAL EXAMINATION: Blood pressure 108/64 with a pulse of 82, temperature 98.8. He is 92% on room air. General description is a middle-aged male up in the chair in no distress. Respiratory system: Unlabored breathing. Clear to auscultation anteriorly. Heart S1, S2. Regular rate and rhythm. Abdomen is soft, no tenderness. Legs still have some swelling, minimal redness to the left leg. No open wound or any drainage. LABS: Hemoglobin 9.1, white count 5.9, BUN of 17, creatinine 0.79. Lower extremity Doppler was negative for DVT. DIAGNOSTIC IMPRESSION AND PLAN: 1. Patient with bilateral lower extremity swelling with minimal redness to the left leg with pain and concern for possible cellulitis. Patient currently covered with Cefazolin, we will advise Manpreet wrap to the leg to keep the swelling down. 2. Abdominal wound. Local wound care to continue with wet-to-dry dressing and application of wound VAC if ends up staying another day. 3. Continue supportive care. MMODL / CHASITYN: [id number] /
[2019-05-26] MEDS: SODIUM CHLORIDE 0.9% 1,000 ML IV SCH (20:35)
--- NOTE | 2019-05-26 20:59 | P.PN ---
Subjective Progress Note Date: 05/26/19 Principal diagnosis: Iron deficiency anemia Patient lying in bed reporting that he is tolerating diet. No signs or symptoms of GI bleeding. Objective - Vital Signs Vital signs: Vital Signs Temp 98.8 F 05/26/19 07:53 Pulse 68 05/26/19 11:14 Resp 18 05/26/19 07:53 BP 118/54 05/26/19 07:53 Pulse Ox 92 L 05/26/19 07:53 Intake & Output 05/25/19 05/26/19 05/26/19 18:59 06:59 18:59 Intake Total 1200 Output Total 300 350 600 Balance 900 -350 -600 Weight 160.6 kg Intake: Oral 1200 Output: Urine 300 350 600 Other: Voiding Method Urinal Urinal Urinal # Voids 4 1 # Bowel Movements 1 - Exam On physical examination, patient appears comfortable in no apparent distress. HEAD: Normocephalic, atraumatic. EYES: No scleral icterus. No conjunctival injection. MOUTH: No lesions, tongue midline. NECK: Trachea midline, no gross abnormalities. CHEST: Clear to auscultation with no wheezing or rhonchi appreciated. HEART: S1-S2 appreciated. ABDOMEN: Soft, obese, ostomy with good output maintained wound wrapped. Bowel sounds are positive. No organomegaly. No guarding or rigidity. NEUROLOGIC: Alert and oriented x3. No focal deficits. - Labs CBC & Chem 7: 05/26/19 06:51 05/26/19 06:51 Labs: Abnormal Lab Results - Last 24 Hours (Table) 05/25/19 05/26/19 05/26/19 Range/Units 11:50 06:51 06:51 RBC 3.76 L (4.30-5.90) m/uL Hgb 9.1 L (13.0-17.5) gm/dL Hct 30.5 L (39.0-53.0) % MCH 24.1 L (25.0-35.0) pg MCHC 29.8 L (31.0-37.0) g/dL RDW 16.2 H (11.5-15.5) % Carbon Dioxide 35 H (22-30) mmol/L Glucose 105 H (74-99) mg/dL Iron 15 L (65-175) ug/dL % Saturation 4.78 L (15.00-50.00) Ferritin 19.7 L (22.0-322.0) ng/mL Total Protein 6.1 L (6.3-8.2) g/dL Albumin 2.9 L (3.5-5.0) g/dL Assessment and Plan (1) Iron (Fe) deficiency anemia Narrative/Plan: 63-year-old with multiple medical comorbidities including prior cholecystectomy complicated by bile leak with subsequent exploratory surgery and colostomy formation. Patient found to have an iron deficiency anemia with no overt evidence of GI bleed. Hemoglobin has remained stable. Currently on iron supplementation. Likely multifactorial given multiple chronic medical conditions. Current Visit: Yes Status: Acute Code(s): D50.9 - IRON DEFICIENCY ANEMIA, UNSPECIFIED SNOMED Code(s): 59946304 Plan: Supportive care Okay for diet Continue monitor hemoglobin Continue iron supplementation No plans for endoscopic evaluation at this time, we'll reevaluate if patient has acute fall in hemoglobin or develops any signs of GI bleed Thank you for allowing us dysphagia in the care of the patient, the GI service will stand by, please call us back with any questions or concerns
[2019-05-27] MEDS: MORPHINE SULFATE 4 MG/ML SYRINGE IV PRN ×4 (03:11→20:29)
[2019-05-27] MEDS: oxyCODONE-APAP 7.5-325MG 1 EACH TAB PO PRN ×2 (06:09→11:19)
[2019-05-27] MEDS: IPRATROPIUM-ALBUTEROL 3 ML NEB INHALATION SCH ×4 (07:57→19:10)
[2019-05-27] MEDS: FUROSEMIDE 10 MG/ML 4 ML VIAL IV SCH ×2 (07:59→20:29)
[2019-05-27] MEDS: LOSARTAN 50 MG TAB PO SCH (07:59)
[2019-05-27] MEDS: METOPROLOL SUCCINATE (ER) 50 MG TAB.ER.24H PO SCH (07:59)
--- NOTE | 2019-05-27 09:48 | P.PN ---
Subjective Progress Note Date: 05/27/19 Principal diagnosis: Lower extremity cellulitis Patient is feeling better today. When asked if he can go home today he stated that he probably needs one more day in the hospital for more diuresis. No fevers or chills. Still having bilateral leg pain. Objective - Vital Signs Vital signs: Vital Signs Temp 98.7 F 05/27/19 07:40 Pulse 72 05/27/19 08:08 Resp 17 05/27/19 07:40 BP 136/74 05/27/19 07:40 Pulse Ox 91 L 05/27/19 07:40 Intake & Output 05/26/19 05/27/19 05/27/19 18:59 06:59 18:59 Intake Total 590 Output Total 1100 2100 1200 Balance -1100 -1510 -1200 Weight 158.8 kg Intake: Oral 590 Output: Urine 1100 2100 1200 Other: Voiding Method Urinal Urinal Urinal - Exam General: non toxic, no distress Derm: Chronic bilateral lower extremity discoloration Head: atraumatic, normocephalic, symmetric Eyes: EOMI, no lid lag ENT: Nose and ears atraumatic Neck: No thyromegaly Mouth: no lip lesion, mucus membranes moist Cardiovascular: S1S2 reg, no murmur, cesar 2+ LE pitting edema to hips Lungs: Mild bibasilar rales, no rhonchi, no accessory muscle use Abdominal: soft, L sided colostomy bag in place large R sided surgical wound w/ dressing in place, no guarding, no appreciable, obese Ext: Chronic venous stasis changes cesar LEs, no gross muscle atrophy, muscle strength 5 out of 5 in all 4 extremities grossly, no contractures Neuro: CN II-XI grossly intact, light touch intact all 4 extremities, finger to nose within normal limits Psych: Alert, oriented, appropriate affect - Labs CBC & Chem 7: 05/26/19 06:51 05/26/19 06:51 Assessment and Plan Plan: Microcytic iron deficiency anemia -Possibly due to GIB -GI consulted, no plans for scopes for now--outpatient workup as appropriate -Continue IV iron--will likely need iron supplements upon discharge -Monitor CBC Chest discomfort, dyspnea -Negative trops Large R sided post-surgical wound, hx of wound-vac - Surgery consulted, need to follow with wound care Diastolic CHF exacerbation, acute on chronic -Lasix 40 mg IVP q12h -Monitor BMP and I/Os -Fluid restriction -Daily weights Metabolic alkalosis, possibly due to chronic retention in setting of NARCISO and COPD -Monitor for now Morbid obesity: BMI 48.2 Chronic conditions: HTN, HLD, NARCISO -C/w home meds, BiPAP DVT prophylaxis -IPCDs Observation CODE STATUS: Full Code Anticipated discharge: 1 days Disposition: Home
[2019-05-27] MEDS: SODIUM FERRIC GLUCONAT-SUCROSE 125 MG in SODIUM CHLORIDE 0.9% 100 ML IVPB SCH (09:49)
--- NOTE | 2019-05-27 23:41 | PN ---
PROGRESS NOTE DATE OF SERVICE: 05/27/2019 REASON FOR FOLLOWUP: 1. Abdominal wound. 2. Lower extremity cellulitis. INTERVAL HISTORY: The patient is currently afebrile. The patient has been breathing comfortably. Denies having any chest pain. He did have some congested cough with occasional sputum. No nausea, no vomiting. No abdominal pain. Swelling and pain to the leg has improved. PHYSICAL EXAMINATION: Blood pressure 136/74 with a pulse of 75, temperature 98.7. He is 99% on 2 L nasal cannula. General description is a middle-aged male lying in bed in no distress. Respiratory system: Unlabored breathing. Coarse breath sounds bilaterally. No wheeze. Heart S1, S2. Regular rate and rhythm. Abdomen soft, no tenderness. Legs currently wrapped up. No obvious drainage on the dressing. LABS: Hemoglobin 9.1, white count 5.9, BUN of 17, creatinine 0.79. DIAGNOSTIC IMPRESSION AND PLAN: 1. Patient with abdominal wall postsurgical with no evidence of any cellulitis. Local care with wet-to-dry dressing was applied. Wound VAC to continue with outpatient setting. 2. The patient with lower extremity swelling and mild cellulitis of the patient left leg, currently on Cefazolin along with Manpreet wrap, finish the therapy up with a course of oral Keflex. 3. Continue supportive care. MMODL / IJN: [id number] /
[2019-05-28] MEDS: MORPHINE SULFATE 4 MG/ML SYRINGE IV PRN ×3 (00:01→11:52)
[2019-05-28] MEDS: SODIUM CHLORIDE 0.9% 1,000 ML IV SCH (00:02)
[2019-05-28 08:02] VITALS: BP 141/61; RESP 22; TEMP 98.6
[2019-05-28 08:06] LABS: African American GFR (CKD) >90 (>60 ml/min/1.73 sqM); Anion Gap 7 mmol/L; Blood Urea Nitrogen 15 mg/dL (9-20); Calcium 9.2 mg/dL (8.4-10.2); Carbon Dioxide 35 mmol/L (22-30); Chloride 97 mmol/L (98-107); Glucose 87 mg/dL (74-99); Magnesium 1.9 mg/dL (1.6-2.3); Non-African American GFR(CKD) >90 (>60 ml/min/1.73 sqM); Potassium 4.3 mmol/L (3.5-5.1); Sodium 139 mmol/L (137-145)
[2019-05-28 08:27] LABS: HCT 32.4 % (39.0-53.0); HGB 9.9 gm/dL (13.0-17.5); Hypochromasia Marked; MCH 24.7 pg (25.0-35.0); MCHC 30.4 g/dL (31.0-37.0); MCV 81.1 fL (80.0-100.0); Mean Platelet Volume 7.7; Platelet Count 352 k/uL (150-450); Poikilocytosis Slight; RBC 3.99 m/uL (4.30-5.90); WBC 7.2 k/uL (3.8-10.6)
[2019-05-28 08:35] LABS: ALT 44 U/L (4-49); AST 53 U/L (17-59); Albumin 3.3 g/dL (3.5-5.0); Alkaline Phosphatase 107 U/L (38-126); Total Bilirubin 0.5 mg/dL (0.2-1.3); Total Protein 6.6 g/dL (6.3-8.2)
[2019-05-28] MEDS: METOPROLOL SUCCINATE (ER) 50 MG TAB.ER.24H PO SCH (09:10)
[2019-05-28] MEDS: FUROSEMIDE 10 MG/ML 4 ML VIAL IV SCH (09:10)
[2019-05-28] MEDS: LOSARTAN 50 MG TAB PO SCH (09:10)
[2019-05-28] MEDS: SODIUM FERRIC GLUCONAT-SUCROSE 125 MG in SODIUM CHLORIDE 0.9% 100 ML IVPB SCH (09:10)
[2019-05-28] MEDS: oxyCODONE-APAP 7.5-325MG 1 EACH TAB PO PRN (09:10)
[2019-05-28] MEDS: IPRATROPIUM-ALBUTEROL 3 ML NEB INHALATION SCH ×2 (09:42→12:57)
--- NOTE | 2019-05-28 12:49 | P.DS ---
Providers Date of admission: 05/26/19 13:41 Expected date of discharge: 05/28/19 Attending physician: Enzo Damian MD Consults: 05/24/19 22:14 Consult Physician Urgent Consulting Provider: Stanislaw Gibson Consult Reason/Comments: Chest pain Do you want consulting provider notified?: Yes 05/24/19 22:15 Consult Physician Urgent Consulting Provider: Berta Francois Consult Reason/Comments: Large R sided pos-surgical wound Do you want consulting provider notified?: Yes 05/25/19 13:23 Consult Physician Routine Consulting Provider: Casie Smith Consult Reason/Comments: wound vac management Do you want consulting provider notified?: Yes Primary care physician: U[facility] Hospital Course: 63-year-old male with PMH of CAD post stent, diastolic CHF with AICD, COPD, hyp oxic respiratory failure on 2 L nasal cannula, history of diverticulitis post colostomy creation, hypertension, dyslipidemia, NARCISO on home BiPAP presented to the ED for shortness of breath and chest discomfort. Troponins was less than 0.0123 with EKG showing sinus rhythm with fusion complex. Chest x-ray was negative. Patient was initially diagnosed with diastolic CHF exacerbation and diuresed with Lasix 40 mg IV twice a day. Cardiology was consulted and recommended continuation of care. Infectious disease was consulted due to a large right-sided postsurgical wound and history of wound VAC. ID recommended 1 week of Keflex and to continue wound VAC at home in the outpatient setting. GI was consulted for microcytic anemia and recommended to continue iron supplementation and for outpatient follow-up as patient did not have any signs of GI bleed. His hemoglobin remained stable from 9.1-9.9 during hospital admission. General surgery was consulted due to this wound in the abdomen and recommended no surgical intervention. Patient was seen and examined. No acute events overnight. Patient reports 75% improvement in his breathing since admission. He denies any chest pain or palpi tations. No nausea or vomiting. No fever or chills. General: [non toxic], [no distress], [appears at stated age] Derm: [warm], [dry], [chronic venous stasis changes lower extremities] Head: [atraumatic], [normocephalic], [symmetric] Eyes: [EOMI], [no lid lag], [anicteric sclera] Mouth: [no lip lesion], [mucus membranes moist] Cardiovascular: [S1S2 reg], [no murmur], [positive DP pulse bilateral], Lungs: [CTA bilateral], [no rhonchi, no rales] , [no accessory muscle use] Abdominal: [soft], [ nontender to palpation], [colostomy bag intact with right- sided surgical wound dressing in place clean dry and intact], [no appreciable organomegaly] Ext: [no gross muscle atrophy], [1+ pitting lower extremity edema bilateral], [no contractures] Neuro: [no focal neuro deficits] Psych: [Alert], [oriented], [appropriate affect] Acute on chronic diastolic CHF exacerbation Microcytic anemia Right-sided postsurgical wound with history of wound VAC Metabolic alkalosis Morbid obesity with BMI 47.5 Hypertension Dyslipidemia NARCISO Echocardiogram September 2018 shows EF 50-55% with moderate concentric LVH. Plans: We will transition from Lasix IV to oral. Needs better blood pressure control. Hemoglobin remaining stable at 9.9. No history GI bleed. Received IV iron. Plans: DC home on oral iron. Needs colonoscopy in the outpatient setting. Plans: Continue wound VAC at home. 7 days of Keflex as per ID. HCO3 35. Likely related to diuresis. Also history of NARCISO. Plans: Continue to monitor. Plans: Structured weight loss program. BP 141/61. Plans: Continue metoprolol and losartan. Monitor vitals, adjust medications as necessary. Lipid panel September 2018 within normal limits. Plans: Diet modification. Plans: CPAP at bedtime as needed. [Patient admitted for CHF exacerbation. He has improved. Plans on DC home today. Needs follow-up with GI for colonoscopy. Needs follow-up with cardiology and PCP.] Pertinent Studies: Venous duplex, chest x-ray, wrist x-ray Patient Condition at Discharge: Stable Plan - Discharge Summary Discharge Rx Participant: No New Discharge Prescriptions: New Cephalexin [Keflex] 500 mg PO Q6HR 7 Days #28 cap Continue Isosorbide Mononitrate ER [Imdur] 60 mg PO DAILY Losartan [Cozaar] 50 mg PO DAILY #30 tab Cyanocobalamin (Vitamin B-12) [Vitamin B-12] 1,000 mcg PO DAILY oxyCODONE HCL/ACETAMINOPHEN [Percocet 7.5-325 mg] 1 tab PO Q6H PRN PRN Reason: Pain Metoprolol Succinate [Toprol XL] 50 mg PO DAILY Sennosides-Docusate Sodium [Senokot-S] 1 tab PO BID PRN PRN Reason: Constipation Clopidogrel [Plavix] 75 mg PO DAILY Aspirin EC [Ecotrin] 325 mg PO DAILY Albuterol Nebulized [Ventolin Nebulized] 2.5 mg INHALATION RT-QID Pro-Stat 30 ml PO BID Ferrous Sulfate [Iron (65 MG Elemental)] 325 mg PO DAILY Ergocalciferol [Vitamin D2 (DRISDOL)] 50,000 unit PO Q7D Menthol [Biofreeze] 1 applic TOPICAL QID PRN PRN Reason: Pain Changed Furosemide [Lasix] 40 mg PO BID #60 tab Discharge Medication List Isosorbide Mononitrate ER [Imdur] 60 mg PO DAILY 04/25/17 [History] Losartan [Cozaar] 50 mg PO DAILY #30 tab 04/27/17 [Rx] Cyanocobalamin (Vitamin B-12) [Vitamin B-12] 1,000 mcg PO DAILY 04/16/18 [History] Metoprolol Succinate [Toprol XL] 50 mg PO DAILY 02/14/19 [History] oxyCODONE HCL/ACETAMINOPHEN [Percocet 7.5-325 mg] 1 tab PO Q6H PRN 02/14/19 [History] Albuterol Nebulized [Ventolin Nebulized] 2.5 mg INHALATION RT-QID 03/20/19 [History] Aspirin EC [Ecotrin] 325 mg PO DAILY 03/20/19 [History] Clopidogrel [Plavix] 75 mg PO DAILY 03/20/19 [History] Sennosides-Docusate Sodium [Senokot-S] 1 tab PO BID PRN 03/20/19 [History] Ergocalciferol [Vitamin D2 (DRISDOL)] 50,000 unit PO Q7D 05/25/19 [History] Ferrous Sulfate [Iron (65 MG Elemental)] 325 mg PO DAILY 05/25/19 [History] Menthol [Biofreeze] 1 applic TOPICAL QID PRN 05/25/19 [History] Pro-Stat 30 ml PO BID 05/25/19 [History] Cephalexin [Keflex] 500 mg PO Q6HR 7 Days #28 cap 05/28/19 [Rx] Furosemide [Lasix] 40 mg PO BID #60 tab 05/28/19 [Rx] Follow up Appointment(s)/Referral(s): Boston Min MD [Primary Care Provider] - 1-2 days Activity/Diet/Wound Care/Special Instructions: [facility] - [phone] Follow-up PCP within 3 days of discharge. Patient will need a colonoscopy. Follow-up with PCP to arrange for colonoscopy. Take all medications as advised. Take 7 days of Keflex. Lasix dose has been increased to 40 mg by mouth twice a day. Discharge Disposition: HOME SELF-CARE
[2019-05-28 13:09] VITALS: PULSE 73
--- NOTE | 2019-05-28 17:27 | PN ---
PROGRESS NOTE DATE OF SERVICE: 05/28/2019 REASON FOR FOLLOWUP: Lower extremity cellulitis and abdominal wound. INTERVAL HISTORY: The patient is currently afebrile. Patient has been breathing comfortably. The patient denies having any chest pain or any cough. No nausea, vomiting. No abdominal pain or diarrhea. PHYSICAL EXAMINATION: Blood pressure 141/61 with a pulse of 75, temperature 98.6. He is 93% on 2 L nasal cannula. General description is a middle-aged male lying in bed in no distress. Respiratory system: Unlabored breathing, clear to auscultation anteriorly. Heart S1, S2. Regular rate and rhythm. Abdomen soft, no tenderness. Lower extremity swelling present, redness has improved. LABS: Hemoglobin 9.8, white count 10.2, BUN of 15, creatinine 0.76. DIAGNOSTIC IMPRESSION AND PLAN: 1. Patient with bilateral lower extremity swelling and redness with mild component of cellulitis. To finish a short course of oral Keflex. Continue with lower extremity Manpreet wrap to keep the swelling down. 2. Patient with abdominal wound postsurgical. Local care to continue with wound VAC in outpatient setting. MMODL / IJN: [id number] /
== END 2019-05-28 15:35 | disposition home or self-care (01) | DRG 292 ==
LOC: EC 16:22 → 1SOBS 19:47 → 3SCARD 20:25 → 4SSUR 20:31 → OBSVTOIN 05-26 13:41
PROVIDERS: ADMIT Internal Medicine; ATTEND Internal Medicine
DX: I11.0 Hypertensive heart disease with heart failure (principal); Z68.42 Body mass index [BMI] 45.0-49.9, adult; E87.3 Alkalosis; L03.116 Cellulitis of left lower limb; E66.2 Morbid (severe) obesity with alveolar hypoventilation; T81.49XA Infection following a procedure, other surgical site, initial encounter; I50.33 Acute on chronic diastolic (congestive) heart failure; D50.9 Iron deficiency anemia, unspecified; D63.8 Anemia in other chronic diseases classified elsewhere; E78.5 Hyperlipidemia, unspecified; F17.210 Nicotine dependence, cigarettes, uncomplicated; I25.10 Atherosclerotic heart disease of native coronary artery without angina pectoris; I25.2 Old myocardial infarction; J44.9 Chronic obstructive pulmonary disease, unspecified; Z79.02 Long term (current) use of antithrombotics/antiplatelets; Z79.82 Long term (current) use of aspirin; Z79.899 Other long term (current) drug therapy; Z82.0 Family history of epilepsy and other diseases of the nervous system; Z82.49 Family history of ischemic heart disease and other diseases of the circulatory system; Z86.73 Personal history of transient ischemic attack (TIA), and cerebral infarction without residual deficits; Z90.49 Acquired absence of other specified parts of digestive tract; Z93.3 Colostomy status; Z95.0 Presence of cardiac pacemaker; Z95.5 Presence of coronary angioplasty implant and graft; Z99.81 Dependence on supplemental oxygen; Z99.89 Dependence on other enabling machines and devices; I27.81 Cor pulmonale (chronic); M19.90 Unspecified osteoarthritis, unspecified site
CPT/HCPCS: 36415; 71046; 80053; 82728; 83540; 83550; 83735; 83880; 84484; 85025; 85027; 85610; 85730; 93970; 94640; 96374; 96375; 99285

== ENCOUNTER 2019-08-20 21:39 | Observation (INO) | payer MEDICARE ==
[2019-08-20] MEDS ORDERED: MORPHINE SULFATE 4 MG/ML SYRINGE IV STA (21:53)
[2019-08-20] MEDS ORDERED: ASPIRIN 81 MG PO STA (21:53)
[2019-08-20] MEDS ORDERED: NITROGLYCERIN OINT 1 INCH/GM PACKET TOPICAL STA (21:53)
[2019-08-20] MEDS ORDERED: SODIUM CHLORIDE 0.9% 500 ML 500 ML IV STA (21:53)
--- NOTE | 2019-08-20 21:57 | ED ---
Chest Pain HPI - General Chief Complaint: Chest Pain Stated Complaint: chest pain Time Seen by Provider: 08/20/19 21:43 Source: patient, EMS Mode of arrival: EMS Limitations: no limitations - History of Present Illness MD Complaint: chest pain Onset/Timin -: days(s) Onset: during rest Pain Location: left chest Pain Radiation: LUE, neck Severity: moderate Quality: aching Consistency: constant Improves With: nothing Worsens With: nothing Treatments Prior to Arrival: none - Related Data Home Medications Medication Instructions Recorded Confirmed Isosorbide Mononitrate ER [Imdur] 60 mg PO DAILY 04/25/17 07/19/19 Cyanocobalamin (Vitamin B-12) 1,000 mcg PO DAILY 04/16/18 07/19/19 [Vitamin B-12] Metoprolol Succinate [Toprol XL] 50 mg PO DAILY 02/14/19 07/19/19 oxyCODONE HCL/ACETAMINOPHEN 1 tab PO Q6H PRN 02/14/19 07/19/19 [Percocet 7.5-325 mg] Albuterol Nebulized [Ventolin 2.5 mg INHALATION RT-TID PRN 03/20/19 07/19/19 Nebulized] Clopidogrel [Plavix] 75 mg PO DAILY 03/20/19 07/19/19 Sennosides-Docusate Sodium 1 tab PO BID 03/20/19 07/19/19 [Senokot-S] Ergocalciferol [Vitamin D2 50,000 unit PO Q7D 05/25/19 07/19/19 (DRISDOL)] Ferrous Sulfate [Iron (65 MG 325 mg PO DAILY 05/25/19 07/19/19 Elemental)] Furosemide [Lasix] 40 mg PO DAILY 07/19/19 07/19/19 Menthol [Biofreeze] 1 applic TOPICAL QID PRN 07/19/19 07/19/19 Previous Rx's Medication Instructions Recorded Losartan [Cozaar] 50 mg PO DAILY #30 tab 04/27/17 Aspirin 81 mg PO DAILY #30 chew 07/21/19 Famotidine [Pepcid] 20 mg PO BID #30 tab 07/21/19 Ipratropium-Albuterol Nebulize 3 ml INHALATION TID #90 ml 07/21/19 [Duoneb 0.5 mg-3 mg/3 ml Soln] Naproxen [Naprosyn] 250 mg PO TID #21 tab 07/21/19 predniSONE 0 mg PO DIRECTED #10 tab 07/21/19 Allergies Allergy/AdvReac Type Severity Reaction Status Date / Time No Known Allergies Allergy Verified 07/19/19 09:27 Review of Systems ROS Statement: Those systems with pertinent positive or pertinent negative responses have been documented in the HPI. ROS Other: All systems not noted in ROS Statement are negative. Constitutional: Denies: fever, chills Respiratory: Denies: cough, dyspnea Cardiovascular: Reports: chest pain. Denies: palpitations, orthopnea, edema, syncope Gastrointestinal: Denies: abdominal pain, vomiting, diarrhea Genitourinary: Denies: dysuria, hematuria Musculoskeletal: Denies: back pain Skin: Denies: rash Neurological: Denies: headache, weakness, numbness EKG Findings - EKG Comments: EKG Findings:: The machine interpretation SUSPECTED pacemaker failure, the EKG is unchanged versus comparison from July 18. - EKG Results: EKG: interpreted by AL, sinus rhythm (Rate 62 bpm), normal axis, normal QRS, normal ST/T, no acute changes Past Medical History Past Medical History: Coronary Artery Disease (CAD), Chest Pain / Angina, COPD, CVA/TIA, Hyperlipidemia, Hypertension, Myocardial Infarction (VA), Osteoarthritis (OA), Respiratory Disorder, Sleep Apnea/CPAP/BIPAP Additional Past Medical History / Comment(s): obesity, obesity hypoventilation syndrome, suspected CHF and cor pulmonale, previous history of defibrillator placement, CVA in 2004, chronic back pain secondary to DDD and spinal canal stenosis, history of vertebral fracture L2 through L5, chronic lower extremity edema, diverticular disease, L knee fx in past and torn R rotator cuff, cellulitis, recent hospitalization for gallbladder issues, states doesn't normally see engineering analyst, just visiting physician although saw one in hospital recently Last Myocardial Infarction Date:: 2011 History of Any Multi-Drug Resistant Organisms: None Reported Past Surgical History: Bowel Resection, Cholecystectomy, Heart Catheterization With Stent, Hernia Repair, Pacemaker Additional Past Surgical History / Comment(s): PTCA with stent (4 total), 04/05/13 [employer] pacemaker, umbilical hernia repair, colonoscopy, circumcision, R eye surgery for strabismus, gallbladder stents One removed from on 03/19, Colostomy with open wounds. Past Anesthesia/Blood Transfusion Reactions: No Reported Reaction Date of Last Stent Placement:: 2012 Type of Cardiac Device: Permanent Pacemaker Device Placement Date:: 04/05/13 Past Psychological History: No Psychological Hx Reported Smoking Status: Current every day smoker Past Alcohol Use History: None Reported Past Drug Use History: None Reported - Past Family History Father Family Medical History: Musculoskeletal Disorder, Neurologic Disorder Additional Family Medical History / Comment(s): Father had parkinson's dx and at age 84 yrs. Mother Family Medical History: Myocardial Infarction (VA) Additional Family Medical History / Comment(s): Mother had 3 vessel CABG. She of a massive VA at the age of 53 yrs. General Exam Limitations: no limitations General appearance: alert, obese Head exam: Present: atraumatic, normocephalic Eye exam: Present: normal appearance. Absent: scleral icterus, conjunctival injection Neck exam: Present: normal inspection, full ROM Respiratory exam: Present: normal lung sounds bilaterally. Absent: respiratory distress, wheezes, rales, rhonchi, stridor Cardiovascular Exam: Present: regular rate, normal rhythm, normal heart sounds. Absent: systolic murmur, diastolic murmur, rubs, gallop GI/Abdominal exam: Present: soft, other (Colostomy bag with hard brown stool present. Patient has dressing to midline abdominal incision is healing by secondary intention.). Absent: distended, tenderness, guarding, rebound, rigid, mass Extremities exam: Present: normal inspection, normal capillary refill, pedal edema (Edema to the mid pretibial bilaterally). Absent: calf tenderness Back exam: Present: normal inspection. Absent: CVA tenderness (R), CVA tenderness (L) Neurological exam: Present: alert Skin exam: Present: warm, dry, intact, normal color. Absent: rash Course Vital Signs 08/20/19 08/20/19 08/20/19 21:41 21:52 22:14 Temperature 97.5 F L Pulse Rate 64 61 Pulse Rate [ 66 Refund Specialist ] Respiratory 26 H 22 Rate Blood Pressure 183/101 170/90 O2 Sat by Pulse 98 98 Oximetry 08/21/19 00:16 Temperature Pulse Rate 69 Pulse Rate [ Refund Specialist ] Respiratory 20 Rate Blood Pressure 142/82 O2 Sat by Pulse 99 Oximetry Disposition Clinical Impression: Chest pain, Hypertension Disposition: ADMITTED IP TO THIS HOSP Condition: Fair Instructions (If sedation given, give patient instructions): Chest Pain (ED) Referrals: Boston Min MD [Primary Care Provider] - 1-2 days
[2019-08-20 22:02] LABS: Anisocytosis Moderate; Basophils % (A) 0 %; Eosinophils # (A) 0.2 k/uL (0-0.7); Eosinophils % (A) 2 %; HGB 12.8 gm/dL (13.0-17.5); Hypochromasia Marked; Lymphocytes # (A) 2.4 k/uL (1.0-4.8); Lymphocytes % (A) 28 %; MCHC 30.5 g/dL (31.0-37.0); MCV 78.8 fL (80.0-100.0); Mean Platelet Volume 9.4; Microcytosis Slight; Monocytes # (A) 0.4 k/uL (0-1.0); Monocytes % (A) 5 %; Neutrophils # (A) 5.2 k/uL (1.3-7.7); Neutrophils % (A) 62 %; Platelet Count 190 k/uL (150-450); RBC 5.32 m/uL (4.30-5.90); RDW 20.3 % (11.5-15.5); WBC 8.4 k/uL (3.8-10.6)
--- NOTE | 2019-08-20 22:10 | XR ---
EXAMINATION TYPE: XR chest 1V portable DATE OF EXAM: 08/20/2019 COMPARISON: NONE HISTORY: Chest pain TECHNIQUE: FINDINGS: There is some mild linear density at the left lung base. The other lung higgins are clear. T here is no heart failure. There is a left axillary pacemaker. There are chest leads. IMPRESSION: Mild subsegmental atelectasis left lung base is new compared to old exam. No heart failur e.
[2019-08-20 22:18] LABS: ALT 24 U/L (4-49); AST 35 U/L (17-59); African American GFR (CKD) >90 (>60 ml/min/1.73 sqM); Alkaline Phosphatase 72 U/L (38-126); Amylase 90 U/L (30-110); Anion Gap 1 mmol/L; Blood Urea Nitrogen 27 mg/dL (9-20); Carbon Dioxide 35 mmol/L (22-30); Chloride 101 mmol/L (98-107); Glucose 89 mg/dL (74-99); INR 0.9 (<1.2); Magnesium 1.8 mg/dL (1.6-2.3); Non-African American GFR(CKD) >90 (>60 ml/min/1.73 sqM); Partial Thromboplastin Time 24.4 sec (22.0-30.0); Prothrombin Time 9.6 sec (9.0-12.0); Sodium 137 mmol/L (137-145); Total Bilirubin 0.5 mg/dL (0.2-1.3); Total Protein 7.3 g/dL (6.3-8.2)
[2019-08-20 22:19] LABS: D-Dimer 0.71 mg/L FEU (<0.60)
--- NOTE | 2019-08-20 23:40 | CT ---
EXAMINATION TYPE: CT chest angio for PE DATE OF EXAM: 08/20/2019 COMPARISON: 10/31/2012 HISTORY: R/O PE CT DLP: 1233.70 mGycm Automated exposure control for dose reduction was used. CONTRAST: Performed with IV Contrast, patient injected with 100 mL of Isovue 370. Multiple axial sections were obtained from the thoracic inlet to the diaphragm with intravenous contr ast Isovue 100 mL. There are 3-D post processed images. FINDINGS: The lungs are clear of consolidation. There is no pleural effusion. There is mild subsegmental atelec tasis at the left lung base. Heart size is fairly normal. There is no pericardial effusion. There is no mediastinal adenopathy. Thoracic aorta is intact without sign of dissection. 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 There is normal contrast opacification of the pulmonary arteries. I see no filling defects. There is some spurring in the thoracic spine. I see no bony destructive process. There is 6 mm subpleural nodule in the posterior segment right upper lobe. There is no evidence of a pulmonary mass. There is some air in the biliary tree. There is cholecystectomy. No dilated ducts. There is small chris unt of air also in the pancreatic duct. IMPRESSION: Small nodule right upper lobe unchanged. No evidence of pulmonary embolism. Mild aneurysm ascending aorta unchanged compared to old exam.
[2019-08-21] MEDS ORDERED: MORPHINE SULFATE 4 MG/ML SYRINGE IV PRN (00:39)
[2019-08-21] MEDS ORDERED: ALBUTEROL NEBULIZED 2.5 MG/3 ML INHALATION PRN (00:41)
[2019-08-21] MEDS: oxyCODONE-APAP 7.5-325MG 1 EACH TAB PO PRN ×4 (01:37→20:01)
[2019-08-21] MEDS: NITROGLYCERIN OINT 1 INCH/GM PACKET TOPICAL SCH ×3 (06:06→16:22)
[2019-08-21] MEDS: SODIUM CHLORIDE 0.9% 1,000 ML IV SCH (06:06)
[2019-08-21] MEDS: IPRATROPIUM-ALBUTEROL 3 ML NEB INHALATION SCH ×4 (07:51→19:11)
[2019-08-21] MEDS: ISOSORBIDE MONONITRATE ER 60 MG TAB.ER.24H PO SCH (08:06)
[2019-08-21] MEDS: NAPROXEN 250 MG TAB PO SCH ×3 (08:06→23:35)
[2019-08-21] MEDS: CYANOCOBALAMIN 500 MCG TAB PO SCH (08:06)
[2019-08-21] MEDS: CLOPIDOGREL 75 MG TAB PO SCH (08:06)
[2019-08-21] MEDS: METOPROLOL SUCCINATE (ER) 50 MG TAB.ER.24H PO SCH (08:06)
[2019-08-21] MEDS: FUROSEMIDE 40 MG TAB PO SCH (08:06)
[2019-08-21] MEDS: SENNOSIDES-DOCUSATE SODIUM 1 EACH TAB PO SCH ×2 (08:07→20:01)
[2019-08-21] MEDS: LOSARTAN 50 MG TAB PO SCH (08:07)
[2019-08-21] MEDS: FAMOTIDINE 20 MG TAB PO SCH ×2 (08:07→20:01)
[2019-08-21] MEDS: FERROUS SULFATE 325 MG TAB PO SCH (08:07)
[2019-08-21] MEDS: ASPIRIN 81 MG PO SCH (08:07)
[2019-08-21] MEDS ORDERED: DOBUTamine DRIP for NUC MED 500 MG in DEXTROSE/WATER 1 250ML.BAG IV ONE (09:03)
--- NOTE | 2019-08-21 09:33 | CONS ---
ROBB Aguilera is a 63-year-old gentleman with history of coronary artery disease, status post prior angioplasty, hypertension, COPD, who was admitted to the hospital complaining of chest pain and shortness of breath. He has chronic COPD and is on home O2 and disease nebulizers and inhalers. He does not have any fever and does not have any history of travel and no recent contacts with a COVID patient. He describes this chest discomfort as precordial with some radiation to his back. It is mild intensity without any clear- cut relationship to exertion. Patient had an EKG that showed sinus rhythm with nonspecific ST-T wave changes. Had two sets of troponins that are negative, hemoglobin is at 12.8, platelet count is normal. PAST MEDICAL HISTORY: Significant for COPD, hypertension, CAD. MEDICATIONS: At the moment include aspirin, Plavix, Ventolin, Cozaar, Imdur, Toprol, Senokot, and Percocet. ALLERGIES: There are no known drug allergies. FAMILY HISTORY: Negative for premature coronary artery disease. SOCIAL HISTORY: Negative for ETOH abuse or drug abuse. REVIEW OF SYSTEMS: HEENT: Unremarkable. CARDIAC: As described above. RESPIRATORY: As described above. GI: Negative. GENITOURINARY: Negative. ALLERGY: None. SKIN: Negative. MUSCULOSKELETAL: Significant for arthritis. PSYCHOSOCIAL: Negative. ENDOCRINE: Negative. DERMATOLOGY: Negative. CONSTITUTIONAL: Negative. ONCOLOGICAL: Negative. TIRE CHANGER: Negative. Rest of the system review is not relevant. PHYSICAL EXAM: Comfortable at rest, afebrile. Heart rate is 70 beats per minute, blood pressure is 150/80 and respiratory rate is 18. There is no jugular venous distention. Chest exam reveals bilateral rhonchi. Heart exam reveals first and second heart sounds. No gallop. No murmur. Abdomen is soft. Exam of extremities did not reveal any edema. Peripheral pulses are felt. LABS: Showed that the tropes are negative, creatinine is normal. Hemoglobin is 12.8. EKG does not reveal ischemic changes. CT chest is negative for pulmonary embolism. ASSESSMENT: 1. Precordial chest pain. 2. Coronary artery disease, status post prior angioplasty. 3. Chronic obstructive pulmonary disease. 4. Hypertension. PLAN: The patient's chest discomfort is atypical. Myocardial infarction is ruled out. I am going to schedule a stress test on him. If this is negative, he can be discharged home and outpatient followup arranged. The patient has had angioplasties in multiple different states. He did not have anything done here in [place], does not follow with Cardiology on a regular basis. His last cardiac catheterization was in 2012 that revealed patent stents within the LAD, 60%-70% ostial stenosis of diagonal branch and circumflex was normal. RCA had a 50% to 60% stenosis. He used to see Dr. Gutierrez in our office, but has not been seeing any. Patient also had a permanent pacemaker implantation, not quite sure where this is being followed. MMODL / IJN: [id number] /
--- NOTE | 2019-08-21 13:35 | P.HPIM ---
History of Present Illness H&P Date: 08/21/19 Chief Complaint: Neck and left arm pain Chief Complaint: Back pain, short of breath History of presenting complaint: This is a 63-year-old patient of Dr. Yohan Patino. Chronic stable medical conditions include coronary artery disease with stent, hypertension, hyperlipidemia, obstructive sleep apnea, colonic diverticulosis, arthritis, chronic lumbar pain at L2 to L5, recurrent fractures, AICD. Chronic hypoxic respiratory failure on 2 L oxygen at home, morbid obesity, obesity hypoventilation syndrome chronic congestive heart failure from diastolic dysfunction EF 50-55%. Patient now presents with 2 days of pain in the left side of neck and down the left arm. Intermittent. Especially worse with movement. No obvious prechordal pain. No nausea vomiting no dizziness no lightheadedness. No fever or chills. Does concern him or the cardiac cause in the ER. Admitted for the same. Review of systems: GEN.: Tired EYES: None HEENT: None NECK: None RESPIRATORY: As above CARDIOVASCULAR: As above GASTROINTESTINAL: None GENITOURINARY: None MUSCULOSKELETAL: As above LYMPHATICS: None HEMATOLOGICAL: None PSYCHIATRY: None NEUROLOGICAL: None Past medical history: COPD in an ex-smoker, CHF from diastolic 50-55%, obesity hypoventilation syndrome, coronary artery disease with stent, hyperlipidemia, hypertension, AICD, chronic low back pain L2 to L5 as chronic fractures, morbid obesity, home oxygen 2 L, and right rotator cuff Social history: Lives alone and has a caregiver also a roommate. Smokes intermittently. No alcohol. Family history: Father had Parkinson's disease Physical examination: VITAL SIGNS: 98.2, 65, 18, blood pressure 123/81, 95% on 3 L GENERAL: BMI 51.8, laying in bed, awake eating. EYES: Pupils equal. Conjunctiva normal. HEENT: External appearance of nose and ears normal, oral cavity grossly normal. NECK: JVD unable to assess; masses not palpable. HEART: Heart sounds muffled, minimal edema. LUNGS: Respiratory rate increased, decreased breath sound. Some wheezing ABDOMEN: Soft, nontender, colostomy bag with stools, liver spleen not palpable. Midline incision with dressing. PSYCH: Alert and oriented x3; mood and affect normal. NEUROLOGICAL: Cranial nerves grossly intact; no facial asymmetry, power and sensation grossly intact. LYMPHATICS: No lymph nodes palpable in the axilla and neck MUSCULAR skeletal: Some limitation of the left arm movement, some reproducible pain INVESTIGATIONS, reviewed in the clinical context: White count 8.4 hemoglobin 12.8 potassium 5 creatinine 0.84 Troponin I 3 negative EKG tracing personally reviewed by me-normal sinus rhythm Chest CTA-small right upper lobe unchanged Chest x-ray film personally reviewed by me-underpenetrated, lung higgins appear to be clear Assessment: -Neck pain in the left arm pain likely musculoskeletal. Rule out cardiac cause. -COPD -Colostomy bag present -chronic midline wound -Chronic congestive heart failure from diastolic dysfunction EF 50-55% -Obesity hypoventilation syndrome -Coronary artery disease with stent -Hyperlipidemia -Essential hypertension -AICD -Chronic low back pain from L2 to L5 osteoarthritis with chronic fractures -Morbid obesity BMI 50.2 -Chronic hypoxic respiratory failure on 2 L oxygen at home Plan: Home medications are to be continued. Cardiology was consulted. Patient was patient most likely musculoskeletal with radicular pain. We'll order a cervical spine x-ray. Care was discussed the patient. Past Medical History Past Medical History: Coronary Artery Disease (CAD), Chest Pain / Angina, COPD, CVA/TIA, Hyperlipidemia, Hypertension, Myocardial Infarction ([place]), Osteoarthritis (OA), Respiratory Disorder, Sleep Apnea/CPAP/BIPAP Additional Past Medical History / Comment(s): obesity, obesity hypoventilation syndrome, suspected CHF and cor pulmonale, previous history of defibrillator placement, CVA in 2004, chronic back pain secondary to DDD and spinal canal stenosis, history of vertebral fracture L2 through L5, chronic lower extremity edema, diverticular disease, L knee fx in past and torn R rotator cuff, cellulitis, recent hospitalization for gallbladder issues, states doesn't normally see 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 Past Anesthesia/Blood Transfusion Reactions: No Reported Reaction Date of Last Stent Placement:: 2012 Type of Cardiac Device: Permanent Pacemaker Device Placement Date:: 04/05/13 Past Psychological History: No Psychological Hx Reported Additional Psychological History / Comment(s): Pt is living in a homE Alone. He can drive. Has can or walker PRN. Smoking Status: Current every day smoker Past Alcohol Use History: None Reported Additional Past Alcohol Use History / Comment(s): Pt states he started smoking around 1970 and smokes just a couple cigarettes a day. Last smoking was this morning. Past Drug Use History: None Reported - Past Family History Father Family Medical History: Musculoskeletal Disorder, Neurologic Disorder Additional Family Medical History / Comment(s): Father had parkinson's dx and at age 84 yrs. Mother Family Medical History: Myocardial Infarction ([place]) Additional Family Medical History / Comment(s): Mother had 3 vessel CABG. She of a massive [place] at the age of 53 yrs. Medications and Allergies Home Medications Medication Instructions Recorded Confirmed Type Isosorbide Mononitrate ER [Imdur] 60 mg PO DAILY 04/25/17 08/21/19 History Losartan [Cozaar] 50 mg PO DAILY #30 tab 04/27/17 08/21/19 Rx Cyanocobalamin (Vitamin B-12) 1,000 mcg PO DAILY 04/16/18 08/21/19 History [Vitamin B-12] Metoprolol Succinate [Toprol XL] 50 mg PO DAILY 02/14/19 08/21/19 History oxyCODONE HCL/ACETAMINOPHEN 1 tab PO Q6H PRN 02/14/19 08/21/19 History [Percocet 7.5-325 mg] Albuterol Nebulized [Ventolin 2.5 mg INHALATION RT-TID PRN 03/20/19 08/21/19 History Nebulized] Clopidogrel [Plavix] 75 mg PO DAILY 03/20/19 08/21/19 History Sennosides-Docusate Sodium 1 tab PO BID 03/20/19 08/21/19 History [Senokot-S] Ergocalciferol [Vitamin D2 50,000 unit PO Q7D 05/25/19 08/21/19 History (DRISDOL)] Ferrous Sulfate [Iron (65 MG 325 mg PO DAILY 05/25/19 08/21/19 History Elemental)] Furosemide [Lasix] 40 mg PO DAILY 07/19/19 08/21/19 History Menthol [Biofreeze] 1 applic TOPICAL QID PRN 07/19/19 08/21/19 History Aspirin 81 mg PO DAILY #30 chew 07/21/19 08/21/19 Rx Famotidine [Pepcid] 20 mg PO BID #30 tab 07/21/19 08/21/19 Rx Ipratropium-Albuterol Nebulize 3 ml INHALATION TID #90 ml 07/21/19 08/21/19 Rx [Duoneb 0.5 mg-3 mg/3 ml Soln] Naproxen [Naprosyn] 250 mg PO TID #21 tab 07/21/19 08/21/19 Rx Allergies Allergy/AdvReac Type Severity Reaction Status Date / Time No Known Allergies Allergy Verified 08/21/19 07:55 Physical Exam Vitals: Vital Signs Temp Pulse Pulse Resp BP BP Pulse Ox 08/21/19 08:03 68 08/21/19 08:00 97.4 F L 74 20 148/89 93 L 08/21/19 07:51 68 08/21/19 02:04 97.6 F 70 18 150/89 96 08/21/19 01:29 70 08/21/19 01:18 70 08/21/19 01:11 96 08/21/19 00:16 69 20 142/82 99 08/20/19 22:14 61 22 170/90 98 08/20/19 21:52 66 08/20/19 21:41 97.5 F L 64 26 H 183/101 98 Intake and Output 08/20/19 08/21/19 08/21/19 22:59 06:59 14:59 Output Total 450 Balance -450 Output: Urine 450 Other: Voiding Method Urinal # Voids 1 Weight 163.293 kg 173.3 kg Results CBC & Chem 7: 08/20/19 21:52 08/20/19 21:52 Labs: Abnormal Lab Results - Last 24 Hours (Table) 08/20/19 08/20/19 08/20/19 Range/Units 21:52 21:52 21:52 Hgb 12.8 L (13.0-17.5) gm/dL MCV 78.8 L (80.0-100.0) fL MCH 24.0 L (25.0-35.0) pg MCHC 30.5 L (31.0-37.0) g/dL RDW 20.3 H (11.5-15.5) % D-Dimer 0.71 H (<0.60) mg/L FEU Carbon Dioxide 35 H (22-30) mmol/L BUN 27 H (9-20) mg/dL Thrombosis Risk Factor Assmnt - Choose All That Apply Each Factor Represents 1 point: Abnormal pulmonary function (COPD), Obesity (BMI >25), Serious lung disease incl. pneumonia (< 1month) Each Risk Factor Represents 2 Points: Age 61-74 years, Patient confined to bed Thrombosis Risk Factor Assessment Total Risk Factor Score: 7 Thrombosis Risk Factor Assessment Level: High Risk
[2019-08-21 20:06] VITALS: RESP 18
[2019-08-22] MEDS: NITROGLYCERIN OINT 1 INCH/GM PACKET TOPICAL SCH ×4 (01:11→11:27)
[2019-08-22] MEDS: SODIUM CHLORIDE 0.9% 1,000 ML IV SCH (01:12)
[2019-08-22] MEDS: oxyCODONE-APAP 7.5-325MG 1 EACH TAB PO PRN ×2 (02:09→08:25)
[2019-08-22 06:40] LABS: Cholesterol 154 mg/dL (<200); HDL Cholesterol 41 mg/dL (40-60); LDL Cholesterol,Calculated 99 mg/dL (0-99); Triglycerides 70 mg/dL (<150)
[2019-08-22] MEDS: CYANOCOBALAMIN 500 MCG TAB PO SCH (07:55)
[2019-08-22] MEDS: ASPIRIN 81 MG PO SCH (07:55)
[2019-08-22] MEDS: CLOPIDOGREL 75 MG TAB PO SCH (07:55)
[2019-08-22] MEDS: METOPROLOL SUCCINATE (ER) 50 MG TAB.ER.24H PO SCH (07:55)
[2019-08-22] MEDS: LOSARTAN 50 MG TAB PO SCH (07:55)
[2019-08-22] MEDS: FAMOTIDINE 20 MG TAB PO SCH (07:55)
[2019-08-22] MEDS: FUROSEMIDE 40 MG TAB PO SCH (07:55)
[2019-08-22] MEDS: ISOSORBIDE MONONITRATE ER 60 MG TAB.ER.24H PO SCH (07:56)
[2019-08-22] MEDS: FERROUS SULFATE 325 MG TAB PO SCH (07:56)
[2019-08-22] MEDS: SENNOSIDES-DOCUSATE SODIUM 1 EACH TAB PO SCH (07:56)
[2019-08-22] MEDS: IPRATROPIUM-ALBUTEROL 3 ML NEB INHALATION SCH ×2 (07:57→11:27)
[2019-08-22] MEDS ORDERED: DOBUTamine DRIP for NUC MED 500 MG in DEXTROSE/WATER 1 250ML.BAG IV ONE (07:58)
[2019-08-22] MEDS: NAPROXEN 250 MG TAB PO SCH (07:59)
[2019-08-22 12:18] VITALS: BP 129/67; PULSE 70; TEMP 98.5
--- NOTE | 2019-08-22 14:32 | P.PN ---
Subjective Progress Note Date: 08/22/19 This is a 63-year-old gentleman with known history of coronary artery disease and prior PCI, hypertension, COPD, admitted to the hospital with symptoms of chest pain with associated shortness of breath. Patient has chronic COPD and is on home O2 at home. His troponins were negative, patient was advised by Dr. Burrell to undergo dobutamine echocardiographic study which the patient refused. Patient also refused to have an echocardiogram with Doppler study performed as he just recently had one performed as an outpatient, with visiting physicians. This morning he denies any chest discomfort and overall states his breathing is stable. Objective - Vital Signs Vital signs: Vital Signs Temp 98.5 F 08/22/19 12:15 Pulse 70 08/22/19 12:15 Resp 18 08/22/19 12:15 BP 129/67 08/22/19 12:15 Pulse Ox 94 L 08/22/19 12:15 Intake & Output 08/21/19 08/22/19 08/22/19 18:59 06:59 18:59 Intake Total 600 210 Output Total 675 1225 Balance -75 -1015 Weight 169.8 kg Intake: IV 10 0.9 10 Oral 600 200 Output: Urine 675 1225 Other: Voiding Method Urinal Urinal Urinal # Voids 1 - Exam PHYSICAL EXAMINATION: GENERAL: 63-year-old gentleman in no acute distress at the time of my examination HEENT: Head is atraumatic, normocephalic. Pupils equal, round. Sclera anicteric. Conjunctiva are clear. Mucous membranes of the mouth are moist. Neck is supple. There is no elevated jugular venous pressure. No carotid bruit is heard. HEART EXAMINATION: Heart S1, S2 normal. No murmur or gallop heard. CHEST EXAMINATION: Lungs reveal scattered coarse wheezing throughout ABDOMEN: Soft, obese, nontender. Bowel sounds are heard. No organomegaly noted. EXTREMITIES:[ 2+ peripheral pulses with 1-2+ evidence of peripheral edema , chronic venous stasis. NEUROLOGIC patient is awake, alert and oriented 3 . - Labs CBC & Chem 7: 08/20/19 21:52 08/20/19 21:52 Assessment and Plan Plan: Assessment and plan #1 atypical chest discomfort, troponins negative 3. Patient advised to undergo dobutamine echocardiographic study which she refused. #2 coronary artery disease with prior PCI. #3 hypertension #4 hyperlipidemia #5 COPD Plan From cardiology's perspective, patient may be able to be discharged home, we'll follow up in the office as an outpatient. DNP note has been reviewed, I agree with a documented findings and plan of care. Patient was seen and examined.
--- NOTE | 2019-08-22 22:10 | P.DS ---
Providers Date of admission: 08/21/19 00:41 Expected date of discharge: 08/22/19 Attending physician: Stevo Winn Consults: 08/21/19 00:40 Consult Physician Routine Consulting Provider: Stanislaw Gibson Consult Reason/Comments: chest pain Do you want consulting provider notified?: Yes Primary care physician: [facility] Course: Chief Complaint: Back pain, short of breath History of presenting complaint: This is a 63-year-old patient of Dr. Yohan Patino. Chronic stable medical conditions include coronary artery disease with stent, hypertension, hyperlipidemia, obstructive sleep apnea, colonic diverticulosis, arthritis, chronic lumbar pain at L2 to L5, recurrent fractures, AICD. Chronic hypoxic respiratory failure on 2 L oxygen at home, morbid obesity, obesity hypoventilation syndrome chronic congestive heart failure from diastolic dysfunction EF 50-55%. Patient now presents with 2 days of pain in the left side of neck and down the left arm. Intermittent. Especially worse with movement. No obvious prechordal pain. No nausea vomiting no dizziness no lightheadedness. No fever or chills. Does concern him or the cardiac cause in the ER. Admitted for the same. Admitted with felt to be cervical spine osteoarthritis with radiculopathy the left arm. Cardiac cause cannot be ruled out. Offered a stress test. By cardiology. Patient declined. Today-no chest pain. Feeling better. Care was discussed with the patient. Discussed with Dr. Guicho Villalta to MD. Consultation: Dr. Guicho Burrell from cardiology Physical examination: VITAL SIGNS: 98.5, 70, 16, 129/67, 94% on 2 L GENERAL: BMI 51.8, sitting up, comfortable EYES: Pupils equal. Conjunctiva normal. HEENT: External appearance of nose and ears normal, oral cavity grossly normal. NECK: JVD unable to assess; masses not palpable. HEART: Heart sounds muffled, minimal edema. LUNGS: Respiratory rate increased, decreased breath sound. Some wheezing ABDOMEN: Soft, nontender, colostomy bag with stools, liver spleen not palpable. Midline incision with dressing. PSYCH: Alert and oriented x3; mood and affect normal. NEUROLOGICAL: Cranial nerves grossly intact; no facial asymmetry, power and sensation grossly intact. LYMPHATICS: No lymph nodes palpable in the axilla and neck MUSCULAR skeletal: Some limitation of the left arm movement, some reproducible pain INVESTIGATIONS, reviewed in the clinical context: White count 8.4 hemoglobin 12.8 potassium 5 creatinine 0.84 Troponin I 3 negative EKG tracing personally reviewed by me-normal sinus rhythm Chest CTA-small right upper lobe unchanged Chest x-ray film personally reviewed by me-underpenetrated, lung higgins appear to be clear Assessment: -Neck pain in the left arm pain likely musculoskeletal. Cervical osteoarthritis with radiculopathy -COPD -Colostomy bag present -chronic midline wound -Chronic congestive heart failure from diastolic dysfunction EF 50-55% -Obesity hypoventilation syndrome -Coronary artery disease with stent -Hyperlipidemia -Essential hypertension -AICD -Chronic low back pain from L2 to L5 osteoarthritis with chronic fractures -Morbid obesity BMI 50.2 -Chronic hypoxic respiratory failure on 2 L oxygen at home Disposition: Home Patient Condition at Discharge: Fair Plan - Discharge Summary New Discharge Prescriptions: Continue Isosorbide Mononitrate ER [Imdur] 60 mg PO DAILY Losartan [Cozaar] 50 mg PO DAILY #30 tab Cyanocobalamin (Vitamin B-12) [Vitamin B-12] 1,000 mcg PO DAILY oxyCODONE HCL/ACETAMINOPHEN [Percocet 7.5-325 mg] 1 tab PO Q6H PRN PRN Reason: Pain Metoprolol Succinate [Toprol XL] 50 mg PO DAILY Sennosides-Docusate Sodium [Senokot-S] 1 tab PO BID Clopidogrel [Plavix] 75 mg PO DAILY Albuterol Nebulized [Ventolin Nebulized] 2.5 mg INHALATION RT-TID PRN PRN Reason: Shortness Of Breath Ferrous Sulfate [Iron (65 MG Elemental)] 325 mg PO DAILY Ergocalciferol [Vitamin D2 (DRISDOL)] 50,000 unit PO Q7D Furosemide [Lasix] 40 mg PO DAILY Menthol [Biofreeze] 1 applic TOPICAL QID PRN PRN Reason: Pain Aspirin 81 mg PO DAILY #30 chew Ipratropium-Albuterol Nebulize [Duoneb 0.5 mg-3 mg/3 ml Soln] 3 ml INHALATION TID #90 ml Naproxen [Naprosyn] 250 mg PO TID #21 tab Famotidine [Pepcid] 20 mg PO BID #30 tab Discharge Medication List Isosorbide Mononitrate ER [Imdur] 60 mg PO DAILY 04/25/17 [History] Losartan [Cozaar] 50 mg PO DAILY #30 tab 04/27/17 [Rx] Cyanocobalamin (Vitamin B-12) [Vitamin B-12] 1,000 mcg PO DAILY 04/16/18 [History] Metoprolol Succinate [Toprol XL] 50 mg PO DAILY 02/14/19 [History] oxyCODONE HCL/ACETAMINOPHEN [Percocet 7.5-325 mg] 1 tab PO Q6H PRN 02/14/19 [History] Albuterol Nebulized [Ventolin Nebulized] 2.5 mg INHALATION RT-TID PRN 03/20/19 [History] Clopidogrel [Plavix] 75 mg PO DAILY 03/20/19 [History] Sennosides-Docusate Sodium [Senokot-S] 1 tab PO BID 03/20/19 [History] Ergocalciferol [Vitamin D2 (DRISDOL)] 50,000 unit PO Q7D 05/25/19 [History] Ferrous Sulfate [Iron (65 MG Elemental)] 325 mg PO DAILY 05/25/19 [History] Furosemide [Lasix] 40 mg PO DAILY 07/19/19 [History] Menthol [Biofreeze] 1 applic TOPICAL QID PRN 07/19/19 [History] Aspirin 81 mg PO DAILY #30 chew 07/21/19 [Rx] Famotidine [Pepcid] 20 mg PO BID #30 tab 07/21/19 [Rx] Ipratropium-Albuterol Nebulize [Duoneb 0.5 mg-3 mg/3 ml Soln] 3 ml INHALATION TID #90 ml 07/21/19 [Rx] Naproxen [Naprosyn] 250 mg PO TID #21 tab 07/21/19 [Rx] Follow up Appointment(s)/Referral(s): Cardiology, [Other] - 09/04/19 1:00 pm [place] Min MD [Primary Care Provider] - 1-2 days Patient Instructions/Handouts: Chest Pain (DC) Discharge Disposition: HOME SELF-CARE
[2019-08-26] MEDS ORDERED: ERGOCALCIFEROL 50,000 UNIT CAP PO SCH (12:00)
== END 2019-08-22 13:34 | disposition home or self-care (01) ==
LOC: EC 21:39 → 3SCARD 08-21 00:41
PROVIDERS: ADMIT Hospitalist; ATTEND Hospitalist
DX: M47.22 Other spondylosis with radiculopathy, cervical region (principal); R07.89 Other chest pain; J44.9 Chronic obstructive pulmonary disease, unspecified; I11.0 Hypertensive heart disease with heart failure; I50.32 Chronic diastolic (congestive) heart failure; I25.10 Atherosclerotic heart disease of native coronary artery without angina pectoris; Z93.3 Colostomy status; E78.5 Hyperlipidemia, unspecified; E66.2 Morbid (severe) obesity with alveolar hypoventilation; Z68.43 Body mass index [BMI] 50.0-59.9, adult; G89.29 Other chronic pain; J96.11 Chronic respiratory failure with hypoxia; F17.210 Nicotine dependence, cigarettes, uncomplicated; M19.90 Unspecified osteoarthritis, unspecified site; S31.109A Unspecified open wound of abdominal wall, unspecified quadrant without penetration into peritoneal cavity, initial encounter; X58.XXXA Exposure to other specified factors, initial encounter; M47.816 Spondylosis without myelopathy or radiculopathy, lumbar region; Z79.02 Long term (current) use of antithrombotics/antiplatelets; Z79.1 Long term (current) use of non-steroidal anti-inflammatories (NSAID); Z79.82 Long term (current) use of aspirin; Z79.891 Long term (current) use of opiate analgesic; Z79.899 Other long term (current) drug therapy; Z90.49 Acquired absence of other specified parts of digestive tract; Z95.5 Presence of coronary angioplasty implant and graft; Z95.810 Presence of automatic (implantable) cardiac defibrillator; Z99.81 Dependence on supplemental oxygen; I25.2 Old myocardial infarction; Z99.89 Dependence on other enabling machines and devices; Z86.73 Personal history of transient ischemic attack (TIA), and cerebral infarction without residual deficits; Z87.81 Personal history of (healed) traumatic fracture; Z87.01 Personal history of pneumonia (recurrent); Z82.0 Family history of epilepsy and other diseases of the nervous system; Z82.49 Family history of ischemic heart disease and other diseases of the circulatory system
CPT/HCPCS: 93005 ×3; 96361; 96374; 99285; 36415; 94640 ×4; 85379; 83880; 80061; 80053; 82150; 83605; 83690; 83735; 84484 ×2; 85025; 85610; 85730; 71045; 71275; G0378 ×2; J2270; Q9967

== ENCOUNTER 2019-11-28 22:02 | Observation (INO) | payer MEDICARE ==
[2019-11-28] MEDS ORDERED: SODIUM CHLORIDE 0.9% 1,000 ML IV STA (22:53)
[2019-11-28] MEDS ORDERED: KETOROLAC 30 MG/ML 1 ML VIAL IVP STA (22:54)
[2019-11-28] MEDS ORDERED: MORPHINE SULFATE 4 MG/ML SYRINGE IVP STA (22:54)
[2019-11-28 23:19] LABS: Basophils % (A) 1 %; Eosinophils # (A) 0.2 k/uL (0-0.7); Eosinophils % (A) 2 %; HGB 13.9 gm/dL (13.0-17.5); Hypochromasia Slight; Lymphocytes % (A) 26 %; MCH 28.5 pg (25.0-35.0); MCV 92.1 fL (80.0-100.0); Monocytes # (A) 0.5 k/uL (0-1.0); Monocytes % (A) 6 %; Neutrophils # (A) 4.9 k/uL (1.3-7.7); Neutrophils % (A) 63 %; Platelet Count 175 k/uL (150-450); RBC 4.88 m/uL (4.30-5.90); RDW 14.4 % (11.5-15.5); WBC 7.7 k/uL (3.8-10.6)
[2019-11-28 23:29] LABS: INR 0.9 (<1.2); Partial Thromboplastin Time 24.2 sec (22.0-30.0); Prothrombin Time 9.5 sec (9.0-12.0)
[2019-11-28 23:31] LABS: ALT 31 U/L (4-49); AST 25 U/L (17-59); African American GFR (CKD) >90 (>60 ml/min/1.73 sqM); Albumin 3.6 g/dL (3.5-5.0); Alkaline Phosphatase 86 U/L (38-126); Anion Gap 2 mmol/L; Blood Urea Nitrogen 25 mg/dL (9-20); C Reactive Protein 11.1 mg/L (<10.0); Calcium 9.1 mg/dL (8.4-10.2); Carbon Dioxide 40 mmol/L (22-30); Chloride 93 mmol/L (98-107); Glucose 131 mg/dL (74-99); Non-African American GFR(CKD) 89 (>60 ml/min/1.73 sqM); Potassium 4.5 mmol/L (3.5-5.1); Sodium 135 mmol/L (137-145); Total Bilirubin 0.2 mg/dL (0.2-1.3); Total Protein 6.8 g/dL (6.3-8.2)
[2019-11-29 00:06] LABS: Erythrocyte Sedimentation Rate 35 mm/hr (0-15)
--- NOTE | 2019-11-29 00:12 | ED ---
Extremity Problem HPI - General Source: patient Mode of arrival: wheelchair Limitations: no limitations <Tram Queen - Last Filed: 11/29/19 02:42> <Louie Lima - Last Filed: 12/04/19 01:02> - General Chief complaint: Extremity Problem,Nontraumatic Stated complaint: Poss cellulitis Time Seen by Provider: 11/28/19 22:37 - History of Present Illness Initial comments: Patient is a 64-year-old male presenting to the emergency Department with complaints of lower extremity infection and pain for the last 3 days. Patient states he was sent in by his doctor. He states for the last few days he has noticed swelling and increase in redness and pain in his bilateral lower legs. He states he has had infections in the past. Neither any recent fever or chills. Patient has history of COPD and is currently on 2 L at home. He states he takes chronic pain medicines secondary to chronic back pain, however these are not touching the pain in his legs. He denies any chest pain, abdominal pain, nausea or vomiting. Patient states he had abdominal surgery with a colostomy placement proximally 6 months ago at [facility] secondary to an infection he received my cholecystectomy. Patient states he has been recovering well from the surgery. He denies any further complaints at this time. Upon arrival to the ER, his O2 saturation is 91% on room air, rest of vitals normal. (Tram Queen) - Related Data Home Medications Medication Instructions Recorded Confirmed Isosorbide Mononitrate ER [Imdur] 60 mg PO DAILY 04/25/17 11/29/19 Cyanocobalamin (Vitamin B-12) 1,000 mcg PO DAILY 04/16/18 11/29/19 [Vitamin B-12] Metoprolol Succinate [Toprol XL] 50 mg PO DAILY 02/14/19 11/29/19 oxyCODONE HCL/ACETAMINOPHEN 1 tab PO Q6H PRN 02/14/19 11/29/19 [Percocet 7.5-325 mg] Clopidogrel [Plavix] 75 mg PO DAILY 03/20/19 11/29/19 Ferrous Sulfate [Iron (65 MG 325 mg PO DAILY 05/25/19 11/29/19 Elemental)] Furosemide [Lasix] 40 mg PO DAILY 07/19/19 11/29/19 Menthol [Biofreeze] 1 applic TOPICAL QID PRN 07/19/19 11/29/19 Famotidine [Pepcid] 20 mg PO DAILY 11/29/19 11/29/19 Ipratropium-Albuterol Nebulize 3 ml INHALATION RT-TID 11/29/19 11/29/19 [Duoneb 0.5 mg-3 mg/3 ml Soln] Previous Rx's Medication Instructions Recorded Losartan [Cozaar] 50 mg PO DAILY #30 tab 04/27/17 Aspirin 81 mg PO DAILY #30 chewable 11/30/19 Clindamycin [Cleocin] 300 mg PO TID #15 cap 11/30/19 Gabapentin [Neurontin] 100 mg PO TID #45 cap 11/30/19 SILVER sulfADIAZINE CREAM 1 applic TOPICAL BID applic 11/30/19 [Silvadene Cream] Sennosides-Docusate Sodium 1 tab PO DAILY #30 tablet 11/30/19 [Senokot-S] Allergies Allergy/AdvReac Type Severity Reaction Status Date / Time No Known Allergies Allergy Verified 11/29/19 09:02 Review of Systems ROS Other: All systems not noted in ROS Statement are negative. <Tram Queen - Last Filed: 11/29/19 02:42> ROS Other: All systems not noted in ROS Statement are negative. <Louie Lima - Last Filed: 12/04/19 01:02> ROS Statement: Those systems with pertinent positive or pertinent negative responses have been documented in the HPI. Past Medical History Past Medical History: Coronary Artery Disease (CAD), Chest Pain / Angina, COPD, CVA/TIA, Hyperlipidemia, Hypertension, Myocardial Infarction ([place]), Osteoarthritis (OA), Respiratory Disorder, Sleep Apnea/CPAP/BIPAP Additional Past Medical History / Comment(s): obesity, obesity hypoventilation syndrome, suspected CHF and cor pulmonale, previous history of defibrillator placement, CVA in 2004, chronic back pain secondary to DDD and spinal canal stenosis, history of vertebral fracture L2 through L5, chronic lower extremity edema, diverticular disease, L knee fx in past and torn R rotator cuff, cellulitis, recent hospitalization for gallbladder issues, states doesn't normally see advertising strategist, just visiting physician although saw one in hospital recently Last Myocardial Infarction Date:: 2011 History of Any Multi-Drug Resistant Organisms: None Reported Past Surgical History: Bowel Resection, Cholecystectomy, Heart Catheterization With Stent, Hernia Repair, Pacemaker Additional Past Surgical History / Comment(s): PTCA with stent (4 total), 04/05/13 [employer] pacemaker, 1989' umbilical hernia repair, colonoscopy, circumcision, R eye surgery for strabismus, gallbladder stents One removed from HF on 03/19, Colostomy with open wounds. Past Anesthesia/Blood Transfusion Reactions: No Reported Reaction Date of Last Stent Placement:: 2012 Type of Cardiac Device: Permanent Pacemaker Device Placement Date:: 04/05/13 Past Psychological History: No Psychological Hx Reported Smoking Status: Current every day smoker Past Alcohol Use History: None Reported Past Drug Use History: None Reported - Past Family History Father Family Medical History: Musculoskeletal Disorder, Neurologic Disorder Additional Family Medical History / Comment(s): Father had parkinson's dx and at age 84 yrs. Mother Family Medical History: Myocardial Infarction ([place]) Additional Family Medical History / Comment(s): Mother had 3 vessel CABG. She of a massive [place] at the age of 53 yrs. <Tram Queen L - Last Filed: 11/29/19 02:42> General Exam Limitations: no limitations <Tram Queen - Last Filed: 11/29/19 02:42> - General Exam Comments Initial Comments: GENERAL: Patient looks disheveled, obese, and in no acute distress. HEAD: Atraumatic, normocephalic. EYES: Pupils equal round and reactive to light, extraocular movements intact, sclera anicteric, conjunctiva are normal. ENT: TMs normal, nares patent, oropharynx clear without exudates. Moist mucous membranes. NECK: Normal range of motion, supple without lymphadenopathy or JVD. LUNGS: Breath sounds clear to auscultation bilaterally and equal. No wheezes rales or rhonchi. HEART: Regular rate and rhythm without murmurs, rubs or gallops. ABDOMEN: Soft, nontender, normoactive bowel sounds. No guarding, no rebound. No masses appreciated. Patient has a colostomy bag. : Deferred EXTREMITIES: Patient has significant edema bilateral lower extremities, erythema. He has neurovascular intact. He has pain with palpation of both lower extremities. No clubbing or cyanosis. NEUROLOGICAL: Cranial nerves II through XII grossly intact. Normal speech, normal gait. PSYCH: Normal mood, normal affect. SKIN: Warm, Dry, normal turgor. Patient has erythema, swelling of bilateral lower extremities, consistent with cellulitis. (Tram Queen) Course Vital Signs 11/28/19 11/29/19 11/29/19 22:18 00:44 01:41 Temperature 98.2 F 98.5 F Pulse Rate 65 69 94 Respiratory 20 18 20 Rate Blood Pressure 149/75 139/82 129/88 O2 Sat by Pulse 91 L 97 96 Oximetry Medical Decision Making - Lab Data Result diagrams: 11/28/19 22:53 11/28/19 22:52 <Tram Queen - Last Filed: 11/29/19 02:42> - Lab Data Result diagrams: 11/28/19 22:53 11/28/19 22:52 <Louie Lima - Last Filed: 12/04/19 01:02> - Medical Decision Making Patient is a 64-year-old male sent in from his doctor's office for bilateral lower leg cellulitis. His vitals are stable. He does have history of COPD, normally on 2 L at home. Lab work reveals slight increase in inflammatory markers with ESR 35, CRP 11.1, lactic acid is normal at 1.3. I did give patient fluids, pain control, Rocephin. Patient will be admitted for bilateral lower leg cellulitis. Patient is agreement with this plan of care. Case discussed with Dr. Lima who is in agreement with this plan of care. Patient admitted to Dr. Winn. (Tram Queen) I saw this patient in conjunction with the physician printer assistant. I performed independent history and physical exam. Agree with case management. (Louie Lima) - Lab Data Lab Results 11/28/19 11/28/19 11/28/19 Range/Units 22:52 22:53 22:53 WBC 7.7 (3.8-10.6) k/uL RBC 4.88 (4.30-5.90) m/uL Hgb 13.9 (13.0-17.5) gm/dL Hct 45.0 (39.0-53.0) % MCV 92.1 (80.0-100.0) fL MCH 28.5 (25.0-35.0) pg MCHC 31.0 (31.0-37.0) g/dL RDW 14.4 (11.5-15.5) % Plt Count 175 (150-450) k/uL Neutrophils % 63 % Lymphocytes % 26 % Monocytes % 6 % Eosinophils % 2 % Basophils % 1 % Neutrophils # 4.9 (1.3-7.7) k/uL Lymphocytes # 2.0 (1.0-4.8) k/uL Monocytes # 0.5 (0-1.0) k/uL Eosinophils # 0.2 (0-0.7) k/uL Basophils # 0.0 (0-0.2) k/uL Hypochromasia Slight ESR 35 H (0-15) mm/hr PT 9.5 (9.0-12.0) sec INR 0.9 (<1.2) APTT 24.2 (22.0-30.0) sec Sodium 135 L (137-145) mmol/L Potassium 4.5 (3.5-5.1) mmol/L Chloride 93 L (98-107) mmol/L Carbon Dioxide 40 H (22-30) mmol/L Anion Gap 2 mmol/L BUN 25 H (9-20) mg/dL Creatinine 0.91 (0.66-1.25) mg/dL Est GFR (CKD-EPI)AfAm >90 (>60 ml/min/1.73 sqM) Est GFR (CKD-EPI)NonAf 89 (>60 ml/min/1.73 sqM) Glucose 131 H (74-99) mg/dL Plasma Lactic Acid Hernán (0.7-2.0) mmol/L Calcium 9.1 (8.4-10.2) mg/dL Total Bilirubin 0.2 (0.2-1.3) mg/dL AST 25 (17-59) U/L ALT 31 (4-49) U/L Alkaline Phosphatase 86 (38-126) U/L C-Reactive Protein 11.1 H (<10.0) mg/L Total Protein 6.8 (6.3-8.2) g/dL Albumin 3.6 (3.5-5.0) g/dL 11/28/19 Range/Units 22:53 WBC (3.8-10.6) k/uL RBC (4.30-5.90) m/uL Hgb (13.0-17.5) gm/dL Hct (39.0-53.0) % MCV (80.0-100.0) fL MCH (25.0-35.0) pg MCHC (31.0-37.0) g/dL RDW (11.5-15.5) % Plt Count (150-450) k/uL Neutrophils % % Lymphocytes % % Monocytes % % Eosinophils % % Basophils % % Neutrophils # (1.3-7.7) k/uL Lymphocytes # (1.0-4.8) k/uL Monocytes # (0-1.0) k/uL Eosinophils # (0-0.7) k/uL Basophils # (0-0.2) k/uL Hypochromasia ESR (0-15) mm/hr PT (9.0-12.0) sec INR (<1.2) APTT (22.0-30.0) sec Sodium (137-145) mmol/L Potassium (3.5-5.1) mmol/L Chloride (98-107) mmol/L Carbon Dioxide (22-30) mmol/L Anion Gap mmol/L BUN (9-20) mg/dL Creatinine (0.66-1.25) mg/dL Est GFR (CKD-EPI)AfAm (>60 ml/min/1.73 sqM) Est GFR (CKD-EPI)NonAf (>60 ml/min/1.73 sqM) Glucose (74-99) mg/dL Plasma Lactic Acid Hernán 1.3 (0.7-2.0) mmol/L Calcium (8.4-10.2) mg/dL Total Bilirubin (0.2-1.3) mg/dL AST (17-59) U/L ALT (4-49) U/L Alkaline Phosphatase (38-126) U/L C-Reactive Protein (<10.0) mg/L Total Protein (6.3-8.2) g/dL Albumin (3.5-5.0) g/dL Disposition Decision Date: 11/29/19 Decision Time: 01:01 <Tram Queen - Last Filed: 11/29/19 02:42> <Louie Lima - Last Filed: 12/04/19 01:02> Clinical Impression: Bilateral lower leg cellulitis Disposition: ADMITTED IP TO THIS HOSP Condition: Stable
[2019-11-29] MEDS ORDERED: NALOXONE 0.4 MG/ML 1 ML VIAL IV PRN (00:59)
[2019-11-29] MEDS ORDERED: ONDANSETRON 4 MG/2 ML VIAL IVP PRN (00:59)
[2019-11-29] MEDS ORDERED: ACETAMINOPHEN TAB 325 MG TAB PO PRN (00:59)
[2019-11-29] MEDS: SODIUM CHLORIDE 0.9% 1,000 ML IV SCH ×2 (01:37→19:06)
[2019-11-29] MEDS: MORPHINE SULFATE 4 MG/ML SYRINGE IV PRN ×4 (03:49→16:43)
[2019-11-29] MEDS: IPRATROPIUM-ALBUTEROL 3 ML NEB INHALATION PRN ×3 (04:29→22:44)
[2019-11-29] MEDS: KETOROLAC 30 MG/ML 1 ML VIAL IVP PRN (06:07)
[2019-11-29] MEDS ORDERED: NON FORMULARY DRUG (Menthol [Biofreeze] 1 APPLIC) TOPICAL PRN (09:46)
[2019-11-29] MEDS ORDERED: DOXYCYCLINE 100 MG CAP PO SCH (10:00)
[2019-11-29] MEDS: FAMOTIDINE 20 MG TAB PO SCH (10:35)
[2019-11-29] MEDS: oxyCODONE-APAP 7.5-325MG 1 EACH TAB PO PRN ×2 (10:35→17:54)
[2019-11-29] MEDS: CYANOCOBALAMIN 500 MCG TAB PO SCH (10:36)
[2019-11-29] MEDS: CLOPIDOGREL 75 MG TAB PO SCH (10:36)
[2019-11-29] MEDS: ASPIRIN 325 MG TAB PO SCH (10:36)
[2019-11-29] MEDS: METOPROLOL SUCCINATE (ER) 50 MG TAB.ER.24H PO SCH (10:36)
[2019-11-29] MEDS: LOSARTAN 50 MG TAB PO SCH (10:36)
[2019-11-29] MEDS: ISOSORBIDE MONONITRATE ER 60 MG TAB.ER.24H PO SCH (10:36)
[2019-11-29] MEDS: FUROSEMIDE 40 MG TAB PO SCH (10:36)
[2019-11-29] MEDS: CLINDAMYCIN 300 MG in DEXTROSE 5% IN WATER 50 ML IVPB SCH ×2 (14:31)
[2019-11-29] MEDS: GABAPENTIN 100 MG CAP PO SCH (19:19)
--- NOTE | 2019-11-29 19:19 | P.HPIM ---
History of Present Illness H&P Date: 11/29/19 Chief Complaint: Lower Extremity pain History of presenting complaint: This is a 7-year-old patient of Dr. Yohan Patino. Chronic stable medical conditions include coronary artery disease with stent, hypertension, hyperlipidemia, obstructive sleep apnea, colonic diverticulosis, arthritis, chronic lumbar pain at L2 to L5, recurrent fractures, AICD. Chronic hypoxic respiratory failure on 2 L oxygen at home, morbid obesity, obesity hypoventilation syndrome chronic congestive heart failure from diastolic dysfunction EF 50-55%. Patient now presents with increasing pain in his lower extremity bones. Redness in both lower extremity. Slight swelling. Seen by his visiting physician. Sent to the ER. [place] to have acute cellulitis. Denies any fever and chills. Appetite is fair. Review of systems: GEN.: Tired EYES: None HEENT: None NECK: None RESPIRATORY: Baseline shortness of breath CARDIOVASCULAR: None GASTROINTESTINAL: None GENITOURINARY: None MUSCULOSKELETAL: Chronic joint pains LYMPHATICS: None HEMATOLOGICAL: None PSYCHIATRY: None NEUROLOGICAL: None Past medical history: COPD in an ex-smoker, CHF from diastolic 50-55%, obesity hypoventilation synd stas, coronary artery disease with stent, hyperlipidemia, hypertension, AICD, chronic low back pain L2 to L5 as chronic fractures, morbid obesity, home oxygen 2 L, and right rotator cuff Social history: Lives alone and has a caregiver also a roommate. Smokes intermittently. No alcohol. Family history: Father had Parkinson's disease Physical examination: VITAL SIGNS: 98, 66, 18, 100 3784, 94% on 2 L GENERAL: BMI 52, propped up in bed, awake EYES: Pupils equal. Conjunctiva normal. HEENT: External appearance of nose and ears normal, oral cavity grossly normal. NECK: JVD unable to assess; masses not palpable. HEART: Heart sounds muffled, minimal edema. LUNGS: Respiratory rate increased, decreased breath sound. EXTREMITY: Area. Off Redness above the ankle both lower legs. Some breakdown of skin. Increased local temperature. Tender. ABDOMEN: Soft, nontender, colostomy bag with stools, liver spleen not palpable. PSYCH: Alert and oriented x3; mood and affect normal. NEUROLOGICAL: Cranial nerves grossly intact; no facial asymmetry, power and sensation grossly intact. LYMPHATICS: No lymph nodes palpable in the axilla and neck INVESTIGATIONS, reviewed in the clinical context: White count 7.7 hemoglobin 13.9 platelets 175 potassium 4.5 bun 25 creatinine 0.91 Assessment: -Acute bilateral lower extremity-cellulitis. -Painful peripheral neuropathy -COPD -Colostomy bag present -Chronic congestive heart failure from diastolic dysfunction EF 50-55% -Obesity hypoventilation syndrome -Coronary artery disease with stent -Hyperlipidemia -Essential hypertension -AICD -Chronic low back pain from L2 to L5 osteoarthritis with chronic fractures -Morbid obesity BMI 50.2 -Chronic hypoxic respiratory failure on 2 L oxygen at home Plan: Home medications resumed. We'll start IV clindamycin. Also use Silvadene cream with Kerlix and Manpreet wrap. We'll start the patient Neurontin. Care was discussed with the patient. Questions were answered. Lovenox for DVT prophylaxis. Past Medical History Past Medical History: Coronary Artery Disease (CAD), Chest Pain / Angina, COPD, CVA/TIA, Hyperlipidemia, Hypertension, Myocardial Infarction ([place]), Osteoarthritis (OA), Respiratory Disorder, Sleep Apnea/CPAP/BIPAP Additional Past Medical History / Comment(s): obesity, obesity hypoventilation syndrome, suspected CHF and cor pulmonale, previous history of defibrillator placement, CVA in 2004, chronic back pain secondary to DDD and spinal canal stenosis, history of vertebral fracture L2 through L5, chronic lower extremity edema, diverticular disease, L knee fx in past and torn R rotator cuff, cellulitis, recent hospitalization for gallbladder issues, states doesn't normally see muleser, just visiting physician although saw one in hospital recently Last Myocardial Infarction Date:: 2011 History of Any Multi-Drug Resistant Organisms: None Reported Past Surgical History: Bowel Resection, Cholecystectomy, Heart Catheterization With Stent, Hernia Repair, Pacemaker Additional Past Surgical History / Comment(s): PTCA with stent (4 total), 04/05/13 [employer] pacemaker, 1989' umbilical hernia repair, colonoscopy, circumcision, R eye surgery for strabismus, gallbladder stents One removed from HF on 03/19, Colostomy with open wounds. Past Anesthesia/Blood Transfusion Reactions: No Reported Reaction Date of Last Stent Placement:: 2012 Type of Cardiac Device: Permanent Pacemaker Device Placement Date:: 04/05/13 Past Psychological History: No Psychological Hx Reported Smoking Status: Current every day smoker Past Alcohol Use History: None Reported Past Drug Use History: None Reported - Past Family History Father Family Medical History: Musculoskeletal Disorder, Neurologic Disorder Additional Family Medical History / Comment(s): Father had parkinson's dx and at age 84 yrs. Mother Family Medical History: Myocardial Infarction ([place]) Additional Family Medical History / Comment(s): Mother had 3 vessel CABG. She of a massive [place] at the age of 53 yrs. Medications and Allergies Home Medications Medication Instructions Recorded Confirmed Type Isosorbide Mononitrate ER [Imdur] 60 mg PO DAILY 04/25/17 11/29/19 History Losartan [Cozaar] 50 mg PO DAILY #30 tab 04/27/17 11/29/19 Rx Cyanocobalamin (Vitamin B-12) 1,000 mcg PO DAILY 04/16/18 11/29/19 History [Vitamin B-12] Metoprolol Succinate [Toprol XL] 50 mg PO DAILY 02/14/19 11/29/19 History oxyCODONE HCL/ACETAMINOPHEN 1 tab PO Q6H PRN 02/14/19 11/29/19 History [Percocet 7.5-325 mg] Clopidogrel [Plavix] 75 mg PO DAILY 03/20/19 11/29/19 History Ferrous Sulfate [Iron (65 MG 325 mg PO DAILY 05/25/19 11/29/19 History Elemental)] Furosemide [Lasix] 40 mg PO DAILY 07/19/19 11/29/19 History Menthol [Biofreeze] 1 applic TOPICAL QID PRN 07/19/19 11/29/19 History Aspirin 325 mg PO DAILY 11/29/19 11/29/19 History Docusate [Colace] 100 mg PO BID 11/29/19 11/29/19 History Doxycycline Hyclate 100 mg PO BID 11/29/19 11/29/19 History Famotidine [Pepcid] 20 mg PO DAILY 11/29/19 11/29/19 History Ipratropium-Albuterol Nebulize 3 ml INHALATION RT-TID 11/29/19 11/29/19 History [Duoneb 0.5 mg-3 mg/3 ml Soln] Allergies Allergy/AdvReac Type Severity Reaction Status Date / Time No Known Allergies Allergy Verified 11/29/19 09:02 Physical Exam Vitals: Vital Signs Temp Pulse Pulse Resp BP BP Pulse Ox 11/29/19 07:00 98.0 F 66 18 137/84 94 L 07/02/20 04:38 72 11/29/19 04:29 68 11/29/19 03:38 66 20 11/29/19 02:45 97.7 F 66 20 168/89 94 L 11/29/19 01:41 98.5 F 94 20 129/88 96 11/29/19 00:44 69 18 139/82 97 11/28/19 22:18 98.2 F 65 20 149/75 91 L Intake and Output 11/28/19 11/29/19 11/29/19 22:59 06:59 14:59 Output Total 300 Balance -300 Output: Urine 300 Other: Voiding Method Toilet Urinal # Voids 1 Weight 170.097 kg 174 kg Results CBC & Chem 7: 11/28/19 22:53 11/28/19 22:52 Labs: Abnormal Lab Results - Last 24 Hours (Table) 11/28/19 11/28/19 Range/Units 22:52 22:53 ESR 35 H (0-15) mm/hr Sodium 135 L (137-145) mmol/L Chloride 93 L (98-107) mmol/L Carbon Dioxide 40 H (22-30) mmol/L BUN 25 H (9-20) mg/dL Glucose 131 H (74-99) mg/dL C-Reactive Protein 11.1 H (<10.0) mg/L
[2019-11-29] MEDS: DOCUSATE 100 MG CAP PO SCH (21:45)
[2019-11-30] MEDS: GABAPENTIN 100 MG CAP PO SCH ×2 (00:36→08:10)
[2019-11-30] MEDS: oxyCODONE-APAP 7.5-325MG 1 EACH TAB PO PRN ×2 (00:38→06:16)
[2019-11-30] MEDS: CLINDAMYCIN 300 MG in DEXTROSE 5% IN WATER 50 ML IVPB SCH ×4 (00:39→08:08)
[2019-11-30] MEDS: FAMOTIDINE 20 MG TAB PO SCH (08:09)
[2019-11-30] MEDS: KETOROLAC 30 MG/ML 1 ML VIAL IVP PRN (08:09)
[2019-11-30] MEDS: LOSARTAN 50 MG TAB PO SCH (08:09)
[2019-11-30] MEDS: ISOSORBIDE MONONITRATE ER 60 MG TAB.ER.24H PO SCH (08:09)
[2019-11-30] MEDS: METOPROLOL SUCCINATE (ER) 50 MG TAB.ER.24H PO SCH (08:09)
[2019-11-30] MEDS: ASPIRIN 325 MG TAB PO SCH (08:09)
[2019-11-30] MEDS: CYANOCOBALAMIN 500 MCG TAB PO SCH (08:10)
[2019-11-30] MEDS: DOCUSATE 100 MG CAP PO SCH (08:10)
[2019-11-30] MEDS: CLOPIDOGREL 75 MG TAB PO SCH (08:10)
[2019-11-30] MEDS: FUROSEMIDE 40 MG TAB PO SCH (08:10)
[2019-11-30] MEDS: IPRATROPIUM-ALBUTEROL 3 ML NEB INHALATION PRN ×2 (08:14→12:16)
[2019-11-30 08:28] VITALS: BP 138/84; RESP 16; TEMP 97.9
[2019-11-30] MEDS ORDERED: FERROUS SULFATE 325 MG TAB PO SCH (09:00)
[2019-11-30 12:21] VITALS: PULSE 68
--- NOTE | 2019-11-30 23:26 | P.DS ---
Providers Date of admission: 11/29/19 00:39 Expected date of discharge: 11/30/19 Attending physician: Stevo Winn Primary care physician: [facility] Course: Chief Complaint: Lower Extremity pain History of presenting complaint: This is a 7-year-old patient of Dr. Yohan Patino. Chronic stable medical conditions include coronary artery disease with stent, hypertension, hyperlipidemia, obstructive sleep apnea, colonic diverticulosis, arthritis, chronic lumbar pain at L2 to L5, recurrent fractures, AICD. Chronic hypoxic respiratory failure on 2 L oxygen at home, morbid obesity, obesity hypove ntilation syndrome chronic congestive heart failure from diastolic dysfunction EF 50-55%. Patient now presents with increasing pain in his lower extremity bones. Redness in both lower extremity. Slight swelling. Seen by his visiting physician. Sent to the ER. [place] to have acute cellulitis. Denies any fever and chills. Appetite is fair. Admitted with bilateral lower external recent mellitus, dry skin, peripheral neuropathy. Treated with IV clindamycin topical patient dressing. Also started Neurontin. Symptoms are much improved by the time of discharge. Discussed with the patient. Physical examination: VITAL SIGNS: 97.9, 61, 16, 130/84, 94% on 2 L GENERAL: BMI 52, propped up in bed, awake EYES: Pupils equal. Conjunctiva normal. HEENT: External appearance of nose and ears normal, oral cavity grossly normal. NECK: JVD unable to assess; masses not palpable. HEART: Heart sounds muffled, minimal edema. LUNGS: Respiratory rate increased, decreased breath sound. EXTREMITY: Bilateral lower extremity redness improved. ABDOMEN: Soft, nontender, colostomy bag with stools, liver spleen not palpable. PSYCH: Alert and oriented x3; mood and affect normal. INVESTIGATIONS, reviewed in the clinical context: White count 7.7 hemoglobin 13.9 platelets 175 potassium 4.5 bun 25 creatinine 0.91 Assessment: -Acute bilateral lower extremity-cellulitis. -Painful peripheral neuropathy -COPD -Colostomy bag present -Chronic congestive heart failure from diastolic dysfunction EF 50-55% -Obesity hypoventilation syndrome -Coronary artery disease with stent -Hyperlipidemia -Essential hypertension -AICD -Chronic low back pain from L2 to L5 osteoarthritis with chronic fractures -Morbid obesity BMI 50.2 -Chronic hypoxic respiratory failure on 2 L oxygen at home Disposition: No Patient Condition at Discharge: Stable Plan - Discharge Summary Discharge Rx Participant: Yes New Discharge Prescriptions: New Aspirin 81 mg PO DAILY #30 chewable Clindamycin [Cleocin] 300 mg PO TID #15 cap Gabapentin [Neurontin] 100 mg PO TID #45 cap Sennosides-Docusate Sodium [Senokot-S] 1 tab PO DAILY #30 tablet SILVER sulfADIAZINE CREAM [Silvadene Cream] 1 applic TOPICAL BID applic Continue Isosorbide Mononitrate ER [Imdur] 60 mg PO DAILY Losartan [Cozaar] 50 mg PO DAILY #30 tab Cyanocobalamin (Vitamin B-12) [Vitamin B-12] 1,000 mcg PO DAILY oxyCODONE HCL/ACETAMINOPHEN [Percocet 7.5-325 mg] 1 tab PO Q6H PRN PRN Reason: Pain Metoprolol Succinate [Toprol XL] 50 mg PO DAILY Clopidogrel [Plavix] 75 mg PO DAILY Ferrous Sulfate [Iron (65 MG Elemental)] 325 mg PO DAILY Furosemide [Lasix] 40 mg PO DAILY Menthol [Biofreeze] 1 applic TOPICAL QID PRN PRN Reason: Pain Ipratropium-Albuterol Nebulize [Duoneb 0.5 mg-3 mg/3 ml Soln] 3 ml INHALATION RT-TID Famotidine [Pepcid] 20 mg PO DAILY Discontinued Docusate [Colace] 100 mg PO BID Aspirin 325 mg PO DAILY Doxycycline Hyclate 100 mg PO BID Discharge Medication List Isosorbide Mononitrate ER [Imdur] 60 mg PO DAILY 04/25/17 [History] Losartan [Cozaar] 50 mg PO DAILY #30 tab 04/27/17 [Rx] Cyanocobalamin (Vitamin B-12) [Vitamin B-12] 1,000 mcg PO DAILY 04/16/18 [History] Metoprolol Succinate [Toprol XL] 50 mg PO DAILY 02/14/19 [History] oxyCODONE HCL/ACETAMINOPHEN [Percocet 7.5-325 mg] 1 tab PO Q6H PRN 02/14/19 [History] Clopidogrel [Plavix] 75 mg PO DAILY 03/20/19 [History] Ferrous Sulfate [Iron (65 MG Elemental)] 325 mg PO DAILY 05/25/19 [History] Furosemide [Lasix] 40 mg PO DAILY 07/19/19 [History] Menthol [Biofreeze] 1 applic TOPICAL QID PRN 07/19/19 [History] Famotidine [Pepcid] 20 mg PO DAILY 11/29/19 [History] Ipratropium-Albuterol Nebulize [Duoneb 0.5 mg-3 mg/3 ml Soln] 3 ml INHALATION RT-TID 11/29/19 [History] Aspirin 81 mg PO DAILY #30 chewable 11/30/19 [Rx] Clindamycin [Cleocin] 300 mg PO TID #15 cap 11/30/19 [Rx] Gabapentin [Neurontin] 100 mg PO TID #45 cap 11/30/19 [Rx] SILVER sulfADIAZINE CREAM [Silvadene Cream] 1 applic TOPICAL BID applic 11/30/19 [Rx] Sennosides-Docusate Sodium [Senokot-S] 1 tab PO DAILY #30 tablet 11/30/19 [Rx] Follow up Appointment(s)/Referral(s): [place] Min MD [Primary Care Provider] - 1-2 days (Office closed at time of discharge please call TuesdayDecember 02 to set up a follow up appointment) Patient Instructions/Handouts: Cellulitis (DC)
== END 2019-11-30 14:23 ==
LOC: EC 22:02 → 4SSUR 11-29 00:39
PROVIDERS: ADMIT Hospitalist; ATTEND Hospitalist
DX: L03.115 Cellulitis of right lower limb (principal); L03.116 Cellulitis of left lower limb; G62.9 Polyneuropathy, unspecified; J44.9 Chronic obstructive pulmonary disease, unspecified; Z93.3 Colostomy status; Z99.81 Dependence on supplemental oxygen; G89.29 Other chronic pain; M54.5 Low back pain; I25.10 Atherosclerotic heart disease of native coronary artery without angina pectoris; E78.5 Hyperlipidemia, unspecified; I25.2 Old myocardial infarction; M19.90 Unspecified osteoarthritis, unspecified site; Z99.89 Dependence on other enabling machines and devices; J96.11 Chronic respiratory failure with hypoxia; I11.0 Hypertensive heart disease with heart failure; I50.32 Chronic diastolic (congestive) heart failure; E66.2 Morbid (severe) obesity with alveolar hypoventilation; Z68.43 Body mass index [BMI] 50.0-59.9, adult; M48.00 Spinal stenosis, site unspecified; M84.48XA Pathological fracture, other site, initial encounter for fracture; Z86.73 Personal history of transient ischemic attack (TIA), and cerebral infarction without residual deficits; Z87.19 Personal history of other diseases of the digestive system; Z86.19 Personal history of other infectious and parasitic diseases; Z90.49 Acquired absence of other specified parts of digestive tract; Z98.0 Intestinal bypass and anastomosis status; Z95.5 Presence of coronary angioplasty implant and graft; Z95.810 Presence of automatic (implantable) cardiac defibrillator; F17.200 Nicotine dependence, unspecified, uncomplicated; Z79.899 Other long term (current) drug therapy; Z79.891 Long term (current) use of opiate analgesic; Z79.02 Long term (current) use of antithrombotics/antiplatelets; Z79.82 Long term (current) use of aspirin; Z82.0 Family history of epilepsy and other diseases of the nervous system; Z82.49 Family history of ischemic heart disease and other diseases of the circulatory system; Z11.59 Encounter for screening for other viral diseases
CPT/HCPCS: 96376 ×2; 96367; 96365; 96375; 99284; 36415; 94640 ×4; 97162; 97166; 80053; 85652; 83605; 85025; 85610; 85730; 86140; 87040; 84145; G0378 ×2; U0003; J2270 ×2; J0696; J1885 ×3

== ENCOUNTER 2020-01-03 17:54 | Emergency (ER) | payer MEDICARE ==
[2020-01-03] MEDS ORDERED: SODIUM CHLORIDE 0.9% 1,000 ML IV STA (18:34)
[2020-01-03] MEDS ORDERED: ONDANSETRON 4 MG/2 ML VIAL IVP STA (18:34)
[2020-01-03] MEDS ORDERED: MORPHINE SULFATE 4 MG/ML SYRINGE IV STA (18:34)
--- NOTE | 2020-01-03 19:02 | ED ---
Abdominal Pain HPI - General Chief Complaint: Abdominal Pain Stated Complaint: abd pain Time Seen by Provider: 01/03/20 18:05 - History of Present Illness Initial Comments: Patient is a 64-year-old male, with multiple comorbidities including heart disease, hypertension, obesity, bowel resection, presenting to the emergency Department via EMS, with complaints of abdominal pain that has been increasing over the past 2-3 days. Patient states he's been dealing with constipation for about a week week and a half. He states he does have nausea, no vomiting. He is belching a lot. Patient has history of cholecystectomy that resulted in a bowel resection and does have a colostomy bag, from Dec 2018. He states he talked to his doctor today who recommended he come in to the ER secondary to his severe abdominal pain. He describes it as all over his abdomen, cramping. He states he takes daily Percocets which is not helping with his pain. He denies any fever or chills. He denies any chest pain or shortness of breath. Of note, patient was covered in fleas upon arrival to the ER. He states he had a new kitten which she recently got rid of. He was given a shower shortly after arrival. He has no further complaints. - Related Data Home Medications Medication Instructions Recorded Confirmed Isosorbide Mononitrate ER [Imdur] 60 mg PO DAILY 04/25/17 01/03/20 Metoprolol Succinate [Toprol XL] 50 mg PO DAILY 02/14/19 01/03/20 oxyCODONE HCL/ACETAMINOPHEN 1 tab PO QID PRN 02/14/19 01/03/20 [Percocet 7.5-325 mg] Clopidogrel [Plavix] 75 mg PO DAILY 03/20/19 01/03/20 Famotidine [Pepcid] 20 mg PO DAILY 11/29/19 01/03/20 Gabapentin [Neurontin] 100 mg PO TID PRN 01/03/20 01/03/20 Previous Rx's Medication Instructions Recorded Losartan [Cozaar] 50 mg PO DAILY #30 tab 04/27/17 Aspirin 81 mg PO DAILY #30 chewable 11/30/19 Allergies Allergy/AdvReac Type Severity Reaction Status Date / Time No Known Allergies Allergy Verified 01/03/20 20:50 Review of Systems ROS Statement: Those systems with pertinent positive or pertinent negative responses have been documented in the HPI. ROS Other: All systems not noted in ROS Statement are negative. Past Medical History Past Medical History: Coronary Artery Disease (CAD), Chest Pain / Angina, COPD, CVA/TIA, Hyperlipidemia, Hypertension, Myocardial Infarction ([place]), Osteoarthritis (OA), Respiratory Disorder, Sleep Apnea/CPAP/BIPAP Additional Past Medical History / Comment(s): obesity, obesity hypoventilation syndrome, suspected CHF and cor pulmonale, previous history of defibrillator placement, CVA in 2004, chronic back pain secondary to DDD and spinal canal stenosis, history of vertebral fracture L2 through L5, chronic lower extremity edema, diverticular disease, L knee fx in past and torn R rotator cuff, иван lulitis, recent hospitalization for gallbladder issues, states doesn't normally see patient care technician, just visiting physician although saw one in hospital recently Last Myocardial Infarction Date:: 2011 History of Any Multi-Drug Resistant Organisms: None Reported Past Surgical History: Bowel Resection, Cholecystectomy, Heart Catheterization With Stent, Hernia Repair, Pacemaker Additional Past Surgical History / Comment(s): PTCA with stent (4 total), 04/05/13 [employer] pacemaker, 1989' umbilical hernia repair, colonoscopy, circumcision, R eye surgery for strabismus, gallbladder stents One removed from on 03/19, Colostomy with open wounds. Past Anesthesia/Blood Transfusion Reactions: No Reported Reaction Date of Last Stent Placement:: 2012 Type of Cardiac Device: Permanent Pacemaker Device Placement Date:: 04/05/13 Past Psychological History: No Psychological Hx Reported Past Alcohol Use History: None Reported Past Drug Use History: None Reported - Past Family History Father Family Medical History: Musculoskeletal Disorder, Neurologic Disorder Additional Family Medical History / Comment(s): Father had parkinson's dx and at age 84 yrs. Mother Family Medical History: Myocardial Infarction ([place]) Additional Family Medical History / Comment(s): Mother had 3 vessel CABG. She of a massive [place] at the age of 53 yrs. General Exam - General Exam Comments Initial Comments: GENERAL: Patient is obese, in mild distress secondary to abdominal pain. He is covered in fleas. HEAD: Atraumatic, normocephalic. EYES: Pupils equal round and reactive to light, extraocular movements intact, sclera anicteric, conjunctiva are normal. Eyelids were unremarkable. ENT: TMs normal, nares patent, oropharynx clear without exudates. Moist mucous membranes. NECK: Normal range of motion, supple without lymphadenopathy or JVD. LUNGS: Unlabored respirations. Breath sounds clear to auscultation bilaterally and equal. No wheezes rales or rhonchi. HEART: Regular rate and rhythm without murmurs, rubs or gallops. ABDOMEN: Diffuse abdominal pain with palpation, colostomy bag present with stool, slightly distended.. Normoactive bowel sounds. No masses appreciated. : Deferred MUSCULOSKELETAL: Normal extremities with adequate strength and normal range of motion, no pitting or edema. No clubbing or cyanosis. NEUROLOGICAL: Patient is alert and oriented x 3. Motor and sensory are also intact. Normal speech, normal gait. PSYCH: Normal mood, normal affect. SKIN: Warm, Dry, normal turgor, no rashes. Multiple fleas present, patient was given a shower. Course Vital Signs 01/03/20 01/03/20 01/03/20 18:00 19:13 19:30 Temperature 98.3 F Pulse Rate 71 74 Respiratory 16 16 Rate Blood Pressure 145/74 145/74 O2 Sat by Pulse 97 98 97 Oximetry 01/03/20 01/03/20 01/03/20 20:00 20:30 21:00 Temperature Pulse Rate 78 72 72 Respiratory 18 17 18 Rate Blood Pressure 138/66 136/80 151/78 O2 Sat by Pulse 98 97 98 Oximetry Medical Decision Making - Medical Decision Making Patient is a 64-year-old male presenting with a severe abdominal pain for the past 2 days. He does have a history of colostomy bag secondary to bowel resection from a cholecystectomy last year. He did have some surgeries performed at [facility]. His vital signs are stable here. Patient's lab work shows normal white count, kidney function is normal, lactic acid is 1.1, lipase is 45. Urine shows no evidence of infection. CT the abdomen shows a 6 cm mesenteric abscess as well as a nonspecific pneumopancreatica. Patient was given fluids, Zofran, pain control, his pain has improved. I discussed these findings with our on-call surgeon, Dr. Prince who recommended transfer down to [facility] to continue with care. Patient is agreement with this plan of care. Patient will be transferred, accepted by Dr. Gonzalez. Case discussed with Dr. Quintana. - Lab Data Result diagrams: 01/03/20 19:06 01/03/20 19:06 Lab Results 01/03/20 01/03/20 01/03/20 Range/Units 19:06 19:06 19:06 WBC 9.8 (3.8-10.6) k/uL RBC 4.74 (4.30-5.90) m/uL Hgb 14.0 (13.0-17.5) gm/dL Hct 44.1 (39.0-53.0) % MCV 93.0 (80.0-100.0) fL MCH 29.5 (25.0-35.0) pg MCHC 31.7 (31.0-37.0) g/dL RDW 13.7 (11.5-15.5) % Plt Count 201 (150-450) k/uL Neutrophils % 71 % Lymphocytes % 19 % Monocytes % 7 % Eosinophils % 2 % Basophils % 0 % Neutrophils # 6.9 (1.3-7.7) k/uL Lymphocytes # 1.9 (1.0-4.8) k/uL Monocytes # 0.7 (0-1.0) k/uL Eosinophils # 0.1 (0-0.7) k/uL Basophils # 0.0 (0-0.2) k/uL PT 9.9 (9.0-12.0) sec INR 0.9 (<1.2) APTT 26.9 (22.0-30.0) sec Sodium 134 L (137-145) mmol/L Potassium 4.9 (3.5-5.1) mmol/L Chloride 92 L (98-107) mmol/L Carbon Dioxide 37 H (22-30) mmol/L Anion Gap 5 mmol/L BUN 13 (9-20) mg/dL Creatinine 0.63 L (0.66-1.25) mg/dL Est GFR (CKD-EPI)AfAm >90 (>60 ml/min/1.73 sqM) Est GFR (CKD-EPI)NonAf >90 (>60 ml/min/1.73 sqM) Glucose 90 (74-99) mg/dL Plasma Lactic Acid Hernán (0.7-2.0) mmol/L Calcium 9.1 (8.4-10.2) mg/dL Total Bilirubin 0.9 (0.2-1.3) mg/dL AST 40 (17-59) U/L ALT 32 (4-49) U/L Alkaline Phosphatase 65 (38-126) U/L Total Protein 6.8 (6.3-8.2) g/dL Albumin 3.5 (3.5-5.0) g/dL Amylase 48 (30-110) U/L Lipase 45 (23-300) U/L Urine Color Urine Appearance (Clear) Urine pH (5.0-8.0) Ur Specific [place] (1.001-1.035) Urine Protein (Negative) Urine Glucose (UA) (Negative) Urine Ketones (Negative) Urine Blood (Negative) Urine Nitrite (Negative) Urine Bilirubin (Negative) Urine Urobilinogen (<2.0) mg/dL Ur Leukocyte Esterase (Negative) Urine RBC (0-5) /hpf Urine WBC (0-5) /hpf Urine Mucus (None) /hpf 01/03/20 01/03/20 Range/Units 19:06 21:10 WBC (3.8-10.6) k/uL RBC (4.30-5.90) m/uL Hgb (13.0-17.5) gm/dL Hct (39.0-53.0) % MCV (80.0-100.0) fL MCH (25.0-35.0) pg MCHC (31.0-37.0) g/dL RDW (11.5-15.5) % Plt Count (150-450) k/uL Neutrophils % % Lymphocytes % % Monocytes % % Eosinophils % % Basophils % % Neutrophils # (1.3-7.7) k/uL Lymphocytes # (1.0-4.8) k/uL Monocytes # (0-1.0) k/uL Eosinophils # (0-0.7) k/uL Basophils # (0-0.2) k/uL PT (9.0-12.0) sec INR (<1.2) APTT (22.0-30.0) sec Sodium (137-145) mmol/L Potassium (3.5-5.1) mmol/L Chloride (98-107) mmol/L Carbon Dioxide (22-30) mmol/L Anion Gap mmol/L BUN (9-20) mg/dL Creatinine (0.66-1.25) mg/dL Est GFR (CKD-EPI)AfAm (>60 ml/min/1.73 sqM) Est GFR (CKD-EPI)NonAf (>60 ml/min/1.73 sqM) Glucose (74-99) mg/dL Plasma Lactic Acid Hernán 1.1 (0.7-2.0) mmol/L Calcium (8.4-10.2) mg/dL Total Bilirubin (0.2-1.3) mg/dL AST (17-59) U/L ALT (4-49) U/L Alkaline Phosphatase (38-126) U/L Total Protein (6.3-8.2) g/dL Albumin (3.5-5.0) g/dL Amylase (30-110) U/L Lipase (23-300) U/L Urine Color Yellow Urine Appearance Clear (Clear) Urine pH 5.5 (5.0-8.0) Ur Specific [place] >1.050 H (1.001-1.035) Urine Protein Trace H (Negative) Urine Glucose (UA) Negative (Negative) Urine Ketones Negative (Negative) Urine Blood Moderate H (Negative) Urine Nitrite Negative (Negative) Urine Bilirubin Negative (Negative) Urine Urobilinogen 2.0 (<2.0) mg/dL Ur Leukocyte Esterase Negative (Negative) Urine RBC 8 H (0-5) /hpf Urine WBC 1 (0-5) /hpf Urine Mucus Rare H (None) /hpf Disposition Clinical Impression: Mesenteric abscess, Abdominal pain Disposition: OTHER INSTITUTION NOT DEFINED Condition: Stable Referrals: Boston Min MD [Primary Care Provider] - 1-2 days - Out of Hospital Transfer - Req. Specs Out of Hospital Transfer - Requested Specifics: Other Emergency Center ([facility])
[2020-01-03 19:36] LABS: Basophils % (A) 0 %; Eosinophils # (A) 0.1 k/uL (0-0.7); Eosinophils % (A) 2 %; HCT 44.1 % (39.0-53.0); Lymphocytes # (A) 1.9 k/uL (1.0-4.8); Lymphocytes % (A) 19 %; MCH 29.5 pg (25.0-35.0); MCHC 31.7 g/dL (31.0-37.0); Mean Platelet Volume 8.1; Monocytes # (A) 0.7 k/uL (0-1.0); Monocytes % (A) 7 %; Neutrophils # (A) 6.9 k/uL (1.3-7.7); Neutrophils % (A) 71 %; Platelet Count 201 k/uL (150-450); RBC 4.74 m/uL (4.30-5.90); RDW 13.7 % (11.5-15.5); WBC 9.8 k/uL (3.8-10.6)
[2020-01-03 19:46] LABS: ALT 32 U/L (4-49); AST 40 U/L (17-59); African American GFR (CKD) >90 (>60 ml/min/1.73 sqM); Albumin 3.5 g/dL (3.5-5.0); Alkaline Phosphatase 65 U/L (38-126); Amylase 48 U/L (30-110); Anion Gap 5 mmol/L; Blood Urea Nitrogen 13 mg/dL (9-20); Calcium 9.1 mg/dL (8.4-10.2); Carbon Dioxide 37 mmol/L (22-30); Chloride 92 mmol/L (98-107); Glucose 90 mg/dL (74-99); Non-African American GFR(CKD) >90 (>60 ml/min/1.73 sqM); Sodium 134 mmol/L (137-145); Total Bilirubin 0.9 mg/dL (0.2-1.3); Total Protein 6.8 g/dL (6.3-8.2)
[2020-01-03 19:48] LABS: INR 0.9 (<1.2); Partial Thromboplastin Time 26.9 sec (22.0-30.0); Potassium 4.9 mmol/L (3.5-5.1); Prothrombin Time 9.9 sec (9.0-12.0)
[2020-01-03] MEDS ORDERED: MORPHINE SULFATE 4 MG/ML SYRINGE IVP STA (20:28)
--- NOTE | 2020-01-03 20:57 | CT ---
EXAMINATION TYPE: CT abdomen pelvis w con DATE OF EXAM: 01/03/2020 COMPARISON: 07/18/2019 HISTORY: Abdominal pain. CT DLP: 4701 mGycm Automated exposure control for dose reduction was used. TECHNIQUE: Helical acquisition of images was performed from the lung bases through the pelvis. CONTRAST: Performed without Oral Contrast and with IV Contrast, patient injected with 100 mL of Isovu e 300. FINDINGS: LUNG BASES: No significant abnormality is appreciated. LIVER/GB: No significant abnormality is appreciated. PANCREAS: There is a nonspecific finding seen on axial images 33 through 37, gas within the pancreati c neck, appearing to reside within the pancreatic duct. This is a nonspecific finding, i.e., pneumopa ncreatica, which can be spontaneous. This was not seen on the prior CT . SPLEEN: No significant abnormality is seen. ADRENALS: No significant abnormality is seen. KIDNEYS: No significant abnormality is seen.0 PERITONEAL CAVITY: No free air or peritoneal fluid is visualized. RETROPERITONEAL ADENOPATHY: None visualized REPRODUCTIVE ORGANS: No significant abnormality is seen URINARY BLADDER: No significant abnormality is seen. PELVIC ADENOPATHY: None visualized. OSSEOUS STRUCTURES: No significant abnormality is seen. BOWEL: There is a focal ill-defined fluid density collection in the right lower quadrant anteriorly, within the center of several bowel loops, having the appearance of mesenteric abscess. This does not appear to be within the peritoneal cavity. Limiting visualization is the lack of oral contrast on e present CT examination. Would recommend full oral contrast CT, with delayed imaging, to image the p atient with oral contrast opacification of all the surrounding bowel loops. The appendix appears normal, it is retrocecal, coursing inferolaterally. OTHER: No acute vascular findings. IMPRESSION: ACUTE PROCESS: 6 CM MESENTERIC ABSCESS SUSPECTED. FURTHER CT CHARACTERIZATION WITH ORAL CONTRAST FE MMENDED. Incidental: nonspecific pneumopancreatica.
[2020-01-03 21:23] LABS: Appearance,Urine Clear (Clear); Bilirubin,Urine Negative (Negative); Blood,Urine Moderate (Negative); Color,Urine Yellow; Glucose,Urine (UA) Negative (Negative); Ketones,Urine Negative (Negative); Leukocyte Esterase,Urine Negative (Negative); Mucus,Urine Rare /hpf; Nitrite,Urine Negative (Negative); PH, Urine 5.5 (5.0-8.0); Protein,Urine Trace (Negative); RBC,Urine 8 /hpf (0-5); WBC,Urine 1 /hpf (0-5)
[2020-01-03 21:25] LABS: Specific Gravity,Urine >1.050 (1.001-1.035)
[2020-01-03 23:23] VITALS: BP 150/78; PULSE 72; RESP 16; TEMP 98.4
== END 2020-01-03 23:24 | disposition other institution (70) ==
LOC: EC 17:54
DX: K65.1 Peritoneal abscess (principal); I25.119 Atherosclerotic heart disease of native coronary artery with unspecified angina pectoris; I10 Essential (primary) hypertension; I25.2 Old myocardial infarction; G47.30 Sleep apnea, unspecified; Z79.01 Long term (current) use of anticoagulants; Z79.899 Other long term (current) drug therapy; F17.200 Nicotine dependence, unspecified, uncomplicated; Z90.49 Acquired absence of other specified parts of digestive tract; Z86.73 Personal history of transient ischemic attack (TIA), and cerebral infarction without residual deficits; Z95.5 Presence of coronary angioplasty implant and graft; Z95.0 Presence of cardiac pacemaker
CPT/HCPCS: 36415; 80053; 82150; 83605; 83690; 85025; 85610; 85730; 81001; 74177; 99285; 96374; 96375; 96376; 96361; J2270; J2405; Q9967

== ENCOUNTER 2021-11-12 15:54 | Emergency (ER) | payer MEDICARE ==
[2021-11-12 17:01] VITALS: BP 152/85; PULSE 61; RESP 18; TEMP 98
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
== END 2021-11-12 18:25 | disposition home or self-care (01) ==
LOC: EC 15:54
DX: G89.29 Other chronic pain (principal); M54.50 Low back pain, unspecified; I25.2 Old myocardial infarction; E78.5 Hyperlipidemia, unspecified; I25.10 Atherosclerotic heart disease of native coronary artery without angina pectoris; J44.9 Chronic obstructive pulmonary disease, unspecified; I10 Essential (primary) hypertension; Z86.73 Personal history of transient ischemic attack (TIA), and cerebral infarction without residual deficits; Z79.899 Other long term (current) drug therapy; Z79.02 Long term (current) use of antithrombotics/antiplatelets
CPT/HCPCS: 99283

== ENCOUNTER 2023-02-07 11:12 | Inpatient (IN) | payer MEDICARE ==
[2023-02-07] MEDS ORDERED: ALBUTEROL NEBULIZED 2.5 MG/3 ML INHALATION STA (13:45)
[2023-02-07] MEDS ORDERED: methylPREDNISolone SOD SUCCI 125 MG/2 ML VIAL IV STA (13:45)
[2023-02-07] MEDS ORDERED: IPRATROPIUM 0.5 MG/2.5 ML NEBU INHALATION STA (13:45)
--- NOTE | 2023-02-07 13:45 | ED ---
General Adult HPI - General Chief complaint: Chest Pain Stated complaint: chest pain/SOB Time Seen by Provider: 02/07/23 11:30 Source: patient, RN notes reviewed, old records reviewed Mode of arrival: wheelchair Limitations: no limitations - History of Present Illness Initial comments: This is a 67-year-old male who presents to the emergency department complaining of chest heaviness and difficulty breathing. Patient states he does continue to smoke. Patient denies any fever chills. Patient states the chest pain is a pressure sensation. Patient denies any lightheadedness dizziness patient denies any increased swelling though he does have chronic edema to both legs which he states is not worse. Patient denies any abdominal pain. Patient denies any back pain. Patient denies lightheadedness or dizziness. - Related Data Home Medications Medication Instructions Recorded Confirmed Isosorbide Mononitrate ER [Imdur] 60 mg PO DAILY 04/25/17 01/03/20 Metoprolol Succinate [Toprol XL] 50 mg PO DAILY 02/14/19 01/03/20 oxyCODONE HCL/ACETAMINOPHEN 1 tab PO QID PRN 02/14/19 01/03/20 [Percocet 7.5-325 mg] Clopidogrel [Plavix] 75 mg PO DAILY 03/20/19 01/03/20 Famotidine [Pepcid] 20 mg PO DAILY 11/29/19 01/03/20 Gabapentin [Neurontin] 100 mg PO TID PRN 01/03/20 01/03/20 Previous Rx's Medication Instructions Recorded Losartan [Cozaar] 50 mg PO DAILY #30 tab 04/27/17 Aspirin 81 mg PO DAILY #30 chewable 11/30/19 oxyCODONE-APAP 7.5-325MG [Percocet 1 tab PO Q4HR PRN 3 Days #18 tab 11/12/21 7.5-325 mg] Allergies Allergy/AdvReac Type Severity Reaction Status Date / Time No Known Allergies Allergy Verified 02/07/23 11:20 Review of Systems ROS Statement: Those systems with pertinent positive or pertinent negative responses have been documented in the HPI. ROS Other: All systems not noted in ROS Statement are negative. Past Medical History Past Medical History: Coronary Artery Disease (CAD), Chest Pain / Angina, COPD, CVA/TIA, Hyperlipidemia, Hypertension, Myocardial Infarction ([place]), Osteoarthritis (OA), Respiratory Disorder, Sleep Apnea/CPAP/BIPAP Additional Past Medical History / Comment(s): obesity, obesity hypoventilation syndrome, suspected CHF and cor pulmonale, previous history of defibrillator placement, CVA in 2004, chronic back pain secondary to DDD and spinal canal stenosis, history of vertebral fracture L2 through L5, chronic lower extremity edema, diverticular disease, L knee fx in past and torn R rotator cuff, cellulitis, recent hospitalization for gallbladder issues, states doesn't normally see solution spec, just visiting physician although saw one in hospital recently Last Myocardial Infarction Date:: 2011 History of Any Multi-Drug Resistant Organisms: None Reported Past Surgical History: Bowel Resection, Cholecystectomy, Heart Catheterization With Stent, Hernia Repair, Pacemaker Additional Past Surgical History / Comment(s): PTCA with stent (4 total), 04/05/13 [employer] pacemaker, 1989' umbilical hernia repair, colonoscopy, circumcision, R eye surgery for strabismus, gallbladder stents One removed from HF on 03/19, Colostomy with open wounds. Past Anesthesia/Blood Transfusion Reactions: No Reported Reaction Date of Last Stent Placement:: 2012 Type of Cardiac Device: Permanent Pacemaker Device Placement Date:: 04/05/13 Past Psychological History: No Psychological Hx Reported Smoking Status: Current every day smoker Past Alcohol Use History: None Reported Past Drug Use History: None Reported - Past Family History Father Family Medical History: Musculoskeletal Disorder, Neurologic Disorder Additional Family Medical History / Comment(s): Father had parkinson's dx and at age 84 yrs. Mother Family Medical History: Myocardial Infarction ([place]) Additional Family Medical History / Comment(s): Mother had 3 vessel CABG. She of a massive RI at the age of 53 yrs. General Exam - General Exam Comments Initial Comments: GENERAL: Patient is well-developed and well-nourished. Patient is nontoxic and well-hydr ated and is in mild distress. ENT: Neck is soft and supple. No significant lymphadenopathy is noted. Oropharynx is clear. Moist mucous membranes. Neck has full range of motion without eliciting any pain. EYES: The sclera were anicteric and conjunctiva were pink and moist. Extraocular movements were intact and pupils were equal round and reactive to light. Eyelids were unremarkable. PULMONARY: Patient has expiratory wheezing CARDIOVASCULAR: There is a regular rate and rhythm without any murmurs gallops or rubs. ABDOMEN: Soft and nontender with normal bowel sounds. SKIN: Skin is clear with no lesions or rashes and otherwise unremarkable. NEUROLOGIC: Patient is alert and oriented x3. Cranial nerves II through XII are grossly intact. Motor and sensory are also intact. Normal speech, volume and content. Symmetrical smile. MUSCULOSKELETAL: Normal extremities with adequate strength and full range of motion. LYMPHATICS: No significant lymphadenopathy is noted PSYCHIATRIC: Normal psychiatric evaluation. Limitations: no limitations Course Vital Signs 02/07/23 02/07/23 02/07/23 11:20 14:06 14:22 Temperature 98 F Pulse Rate 64 64 72 Respiratory 16 Rate Blood Pressure 165/77 O2 Sat by Pulse 86 L Oximetry Medical Decision Making - Medical Decision Making EKG is interpreted by myself shows a sinus rhythm at 61 bpm OR interval 187 QRS is 113 QT interval is 423 QTC is 426 per patient's EKG shows no ST segment elevation or depression. Was pt. sent in by a medical professional or institution (, PA, DIESEL POWERPLANT SUPERVISOR, urgent care, hospital, or senior living...) When possible be specific @ -No Did you speak to anyone other than the patient for history (EMS, parent, family, police, friend...)? What history was obtained from this source @ -No Did you review nursing and triage notes (agree or disagree)? Why? @ -I reviewed and agree with nursing and triage notes Were old charts reviewed (outside hosp., previous admission, EMS record, old EKG, old radiological studies, urgent care reports/EKG's, senior living records)? Report findings @ -I reviewed prior charts in prior laboratory radiological studies Differential Diagnosis (chest pain, altered mental status, abdominal pain women, abdominal pain men, vaginal bleeding, weakness, fever, dyspnea, syncope, headache, dizziness, GI bleed, back pain, seizure, CVA, palpatations, mental health, musculoskeletal)? @ -Differential Dyspnea: Coronary syndrome, arrhythmia, tamponade, asthma, COPD, pulmonary embolism, pneumonia, pneumothorax, pulmonary effusion, anaphylaxis, diabetic ketoacidosis, flailed chest, pulmonary contusion, diaphragmatic rupture, anemia, neuromuscular , this is not meant to be an all-inclusive list. EKG interpreted by me (3pts min.). @ -As above X-rays interpreted by me (1pt min.). @ -Chest x-ray shows no acute abnormality CT interpreted by me (1pt min.). @ -None done U/S interpreted by me (1pt. min.). @ -None done What testing was considered but not performed or refused? (CT, X-rays, U/S, labs)? Why? @ -None What meds were considered but not given or refused? Why? @ -None Did you discuss the management of the patient with other professionals (professionals i.e. DrBowen, PA, DIESEL POWERPLANT SUPERVISOR, lab, RT, psych nurse, child protective services social worker, kiln car repairer, teacher, guest services officer, case sealer)? Give summary @ -I spoke with Dr. Winn he agreed to admit the patient admitted the patient wrote admitting orders Was smoking cessation discussed for >3mins.? @ -No Was critical care preformed (if so, how long)? @ -No Were there social determinants of health that impacted care today? How? (Homelessness, low income, unemployed, alcoholism, drug addiction, transportation, low edu. Level, literacy, decrease access to med. care, alf, rehab)? @ -No Was there de-escalation of care discussed even if they declined (Discuss DNR or withdrawal of care, Hospice)? DNR status @ -No What co-morbidities impacted this encounter? (DM, HTN, Smoking, COPD, CAD, Cancer, CVA, ARF, Chemo, Hep., AIDS, mental health diagnosis, sleep apnea, morbid obesity)? @ -None Was patient admitted / discharged? Hospital course, mention meds given and route, prescriptions, significant lab abnormalities, going to OR and other per tinent info. @ -Patient had extra wheezing and gave the patient a couple breathing treatments and [facility] I [facility] Dr. Winn he agreed to admit the patient minute the patient wrote admitting orders I consulted pulmonary Undiagnosed new problem with uncertain prognosis? @ -No Drug Therapy requiring intensive monitoring for toxicity (Heparin, Nitro, Insulin, Cardizem)? @ -No Were any procedures done? @ -No Diagnosis/symptom? @ -COPD exacerbation Acute, or Chronic, or Acute on Chronic? @ -Acute Uncomplicated (without systemic symptoms) or Complicated (systemic symptoms)? @ -Complicated Side effects of treatment? @ -No Exacerbation, Progression, or Severe Exacerbation? @ -No Poses a threat to life or bodily function? How? (Chest pain, [place], RI, pneumonia, PE, COPD, DKA, ARF, appy, cholecystitis, CVA, Diverticulitis, Homicidal, Suicidal, threat to staff... and all critical care pts) @ -Yes this could lead to hypoxia and end organ dysfunction - Lab Data Result diagrams: 02/07/23 14:15 02/07/23 14:15 Lab Results 02/07/23 02/07/23 02/07/23 Range/Units 14:15 14:15 14:15 WBC 5.6 (3.8-10.6) k/uL RBC 5.37 (4.30-5.90) m/uL Hgb 16.3 (13.0-17.5) gm/dL Hct 52.6 (39.0-53.0) % MCV 97.9 (80.0-100.0) fL MCH 30.4 (25.0-35.0) pg MCHC 31.1 (31.0-37.0) g/dL RDW 13.4 (11.5-15.5) % Plt Count 175 (150-450) k/uL MPV 8.6 Neutrophils % 59 % Lymphocytes % 31 % Monocytes % 6 % Eosinophils % 3 % Basophils % 0 % Neutrophils # 3.3 (1.3-7.7) k/uL Lymphocytes # 1.7 (1.0-4.8) k/uL Monocytes # 0.3 (0-1.0) k/uL Eosinophils # 0.1 (0-0.7) k/uL Basophils # 0.0 (0-0.2) k/uL PT 10.4 (9.0-12.0) sec INR 1.0 (<1.2) APTT 25.9 (22.0-30.0) sec Sodium 140 (137-145) mmol/L Potassium 4.4 (3.5-5.1) mmol/L Chloride 98 (98-107) mmol/L Carbon Dioxide 34 H (22-30) mmol/L Anion Gap 8 mmol/L BUN 30 H (9-20) mg/dL Creatinine 0.98 (0.66-1.25) mg/dL Est GFR (CKD-EPI)AfAm >90 (>60 ml/min/1.73 sqM) Est GFR (CKD-EPI)NonAf 81 (>60 ml/min/1.73 sqM) Glucose 133 H (74-99) mg/dL Plasma Lactic Acid Hernán (0.7-2.0) mmol/L Calcium 9.2 (8.4-10.2) mg/dL Magnesium 1.8 (1.6-2.3) mg/dL Total Bilirubin 0.6 (0.2-1.3) mg/dL AST 69 H (17-59) U/L ALT 139 H (4-49) U/L Alkaline Phosphatase 182 H (38-126) U/L Troponin I (0.000-0.034) ng/mL NT-Pro-B Natriuret Pep pg/mL Total Protein 7.2 (6.3-8.2) g/dL Albumin 3.8 (3.5-5.0) g/dL 02/07/23 02/07/23 02/07/23 Range/Units 14:15 14:15 14:15 WBC (3.8-10.6) k/uL RBC (4.30-5.90) m/uL Hgb (13.0-17.5) gm/dL Hct (39.0-53.0) % MCV (80.0-100.0) fL MCH (25.0-35.0) pg MCHC (31.0-37.0) g/dL RDW (11.5-15.5) % Plt Count (150-450) k/uL MPV Neutrophils % % Lymphocytes % % Monocytes % % Eosinophils % % Basophils % % Neutrophils # (1.3-7.7) k/uL Lymphocytes # (1.0-4.8) k/uL Monocytes # (0-1.0) k/uL Eosinophils # (0-0.7) k/uL Basophils # (0-0.2) k/uL PT (9.0-12.0) sec INR (<1.2) APTT (22.0-30.0) sec Sodium (137-145) mmol/L Potassium (3.5-5.1) mmol/L Chloride (98-107) mmol/L Carbon Dioxide (22-30) mmol/L Anion Gap mmol/L BUN (9-20) mg/dL Creatinine (0.66-1.25) mg/dL Est GFR (CKD-EPI)AfAm (>60 ml/min/1.73 sqM) Est GFR (CKD-EPI)NonAf (>60 ml/min/1.73 sqM) Glucose (74-99) mg/dL Plasma Lactic Acid Hernán 1.2 (0.7-2.0) mmol/L Calcium (8.4-10.2) mg/dL Magnesium (1.6-2.3) mg/dL Total Bilirubin (0.2-1.3) mg/dL AST (17-59) U/L ALT (4-49) U/L Alkaline Phosphatase (38-126) U/L Troponin I <0.012 (0.000-0.034) ng/mL NT-Pro-B Natriuret Pep 35 pg/mL Total Protein (6.3-8.2) g/dL Albumin (3.5-5.0) g/dL Disposition Clinical Impression: Acute exacerbation of chronic obstructive airways disease Disposition: ADMITTED IP TO THIS HOSP Referrals: Boston Min MD [Primary Care Provider] - 1-2 days Time of Disposition: 16:02
[2023-02-07 14:26] LABS: Basophils % (A) 0 %; Eosinophils # (A) 0.1 k/uL (0-0.7); Eosinophils % (A) 3 %; HCT 52.6 % (39.0-53.0); HGB 16.3 gm/dL (13.0-17.5); Lymphocytes # (A) 1.7 k/uL (1.0-4.8); Lymphocytes % (A) 31 %; MCH 30.4 pg (25.0-35.0); MCHC 31.1 g/dL (31.0-37.0); MCV 97.9 fL (80.0-100.0); Mean Platelet Volume 8.6; Monocytes # (A) 0.3 k/uL (0-1.0); Monocytes % (A) 6 %; Neutrophils # (A) 3.3 k/uL (1.3-7.7); Neutrophils % (A) 59 %; Platelet Count 175 k/uL (150-450); RBC 5.37 m/uL (4.30-5.90); RDW 13.4 % (11.5-15.5); WBC 5.6 k/uL (3.8-10.6)
[2023-02-07 14:34] LABS: Partial Thromboplastin Time 25.9 sec (22.0-30.0); Prothrombin Time 10.4 sec (9.0-12.0)
[2023-02-07 14:35] LABS: ALT 139 U/L (4-49); AST 69 U/L (17-59); African American GFR (CKD) >90 (>60 ml/min/1.73 sqM); Albumin 3.8 g/dL (3.5-5.0); Alkaline Phosphatase 182 U/L (38-126); Blood Urea Nitrogen 30 mg/dL (9-20); Calcium 9.2 mg/dL (8.4-10.2); Chloride 98 mmol/L (98-107); Glucose 133 mg/dL (74-99); Magnesium 1.8 mg/dL (1.6-2.3); Non-African American GFR(CKD) 81 (>60 ml/min/1.73 sqM); Potassium 4.4 mmol/L (3.5-5.1); Sodium 140 mmol/L (137-145); Total Bilirubin 0.6 mg/dL (0.2-1.3); Total Protein 7.2 g/dL (6.3-8.2)
[2023-02-07 14:41] LABS: Anion Gap 8 mmol/L
[2023-02-07 14:47] LABS: Carbon Dioxide 34 mmol/L (22-30)
--- NOTE | 2023-02-07 15:23 | XR ---
EXAMINATION TYPE: XR chest 2V DATE OF EXAM: 02/07/2023 COMPARISON: 08/20/2019 HISTORY: Shortness of breath TECHNIQUE: Frontal and lateral views of the chest are obtained. FINDINGS: Scattered senescent parenchymal changes noted. Hyperinflation compatible with COPD. No evidence for infiltrate. No evidence for atelectasis. Heart size is stable. Mild pulmonary venous congestion without overt failure. Mediastinal structures are stable and grossly unremarkable. No evidence for hilar prominence. Degenerative changes dorsal spine. IMPRESSION: 1. No evidence for acute pulmonary disease.
[2023-02-07] MEDS ORDERED: NALOXONE 0.4 MG/ML 1 ML VIAL IVP PRN (16:03)
[2023-02-07] MEDS ORDERED: IPRATROPIUM-ALBUTEROL 3 ML NEB INHALATION PRN (16:03)
[2023-02-07] MEDS: methylPREDNISolone SOD SUCCI 125 MG/2 ML VIAL IV SCH (17:23)
[2023-02-07] MEDS: oxyCODONE-APAP 10-325MG 1 EACH TAB PO PRN (18:07)
[2023-02-07] MEDS ORDERED: IPRATROPIUM-ALBUTEROL 3 ML NEB INHALATION SCH (20:00)
[2023-02-07] MEDS: LOSARTAN 50 MG TAB PO SCH (21:10)
[2023-02-07] MEDS: AMOXIC-POT CLAV 875-125MG 1 EACH TAB PO SCH (21:10)
[2023-02-07] MEDS: SENNOSIDES-DOCUSATE SODIUM 1 EACH TAB PO SCH (21:11)
--- NOTE | 2023-02-07 21:40 | P.HPIM ---
History of Present Illness H&P Date: 02/07/23 Chief Complaint: Short of breath History of presenting complaint: This is a 67-year-old patient of Dr. Min. Chronic stable medical conditions include coronary artery disease with stent, hypertension, hyperlipidemia, obstructive sleep apnea, colonic diverticulosis, arthritis, chronic lumbar pain at L2 to L5, recurrent fractures, AICD. Chronic hypoxic respiratory failure on 2 L oxygen at home, morbid obesity, obesity hypoventilation syndrome chronic congestive heart failure from diastolic dysfunction EF 50-55%. Colostomy bag. Patient presents with increasing shortness of breath. Chills. Sputum that is clear. Tired. Some decrease in appetite. Has chronic lower extremity venous edema. No fevers. Tired. Review of systems: GEN.: Tired, chills EYES: None HEENT: None NECK: None RESPIRATORY: As above CARDIOVASCULAR: Edema GASTROINTESTINAL: None GENITOURINARY: None MUSCULOSKELETAL: Chronic joint pains LYMPHATICS: None HEMATOLOGICAL: None PSYCHIATRY: None NEUROLOGICAL: None Past medical history: COPD in an ex-smoker, CHF from diastolic 50-55%, obesity hypoventilation syndrome, coronary artery disease with stent, hyperlipidemia, hypertension, AICD, chronic low back pain L2 to L5 as chronic fractures, morbid obesity, home oxygen 2 L, and right rotator cuff Social history: Lives alone . Smokes about half a pack a day.. No alcohol. Physical examination: VITAL SIGNS: 98, 64, 16, 165/77, 96% room air GENERAL: BMI 55.5, sitting on his motorized wheelchair, short of breath EYES: Pupils equal. Conjunctiva normal. HEENT: External appearance of nose and ears normal, oral cavity grossly normal. NECK: JVD unable to assess; masses not palpable. HEART: Heart sounds muffled, edema. LUNGS: Respiratory rate increased, decreased breath sound. Not able to speak in full sentences. Expiratory wheezing. Sensory muscles are working. EXTREMITY: Area. of Redness above the ankle both lower legs. Edema. ABDOMEN: Soft, nontender, colostomy bag , liver spleen not palpable. PSYCH: Alert and oriented x3; mood and affect normal. NEUROLOGICAL: Cranial nerves grossly intact; no facial asymmetry, power and sensation grossly intact. LYMPHATICS: No lymph nodes palpable in the axilla and neck INVESTIGATIONS, reviewed in the clinical context: February 07: White count 5.6 hemoglobin 16.3 platelets 175 sodium 140 potassium 4.4 BUN 30 creatinine 0.98 AST 69 ALT 139 Troponin I less than 0.012. ProBNP 35 EKG tracing personally reviewed by me-normal sinus rhythm. Nonspecific ST/T- wave changes. Chest x-ray film personally reviewed by me-pacemaker. Assessment and plan: -Acute COPD exacerbation in a current smoker, with acute probable viral br onchitis Nevertheless Perforomist. DuoNeb 4 times a day. Nebulized Pulmicort twice a day. IV Solu-Medrol. -Chronic bilateral lower, venous insufficiency Manpreet wrap -Chronic nicotine dependence, cigarette smoker Nicotine patch - peripheral neuropathy -Colostomy bag -Chronic congestive heart failure from diastolic dysfunction EF 50-55% Follow fluid status -Obesity hypoventilation syndrome -Coronary artery disease with stent Plavix. Toprol-XL -Hyperlipidemia -Essential hypertension Cozaar 50 mg daily at bedtime. Imdur ER 60 mg daily. Toprol-XL 50 mg day. -AICD -Chronic low back pain from L2 to L5 osteoarthritis with chronic fractures -Morbid obesity BMI 51.5 Weight loss measures -Chronic hypoxic respiratory failure , secondary to underlying COPD on 2 L oxygen at home -Chronic medical debility uses a motorized wheelchair Discussed with patient Given the complexity and severity of patient's condition expect the patient to be in the hospital at least for 2 overnights. Past Medical History Past Medical History: Coronary Artery Disease (CAD), Chest Pain / Angina, COPD, CVA/TIA, Hyperlipidemia, Hypertension, Myocardial Infarction ([place]), Osteoarthritis (OA), Respiratory Disorder, Sleep Apnea/CPAP/BIPAP Additional Past Medical History / Comment(s): obesity, obesity hypoventilation syndrome, suspected CHF and cor pulmonale, previous history of defibrillator placement, CVA in 2004, chronic back pain secondary to DDD and spinal canal stenosis, history of vertebral fracture L2 through L5, chronic lower extremity edema, diverticular disease, L knee fx in past and torn R rotator cuff, cellulitis, recent hospitalization for gallbladder issues, states doesn't normally see director ship, just visiting physician although saw one in hospital recently Last Myocardial Infarction Date:: 2011 History of Any Multi-Drug Resistant Organisms: None Reported Past Surgical History: Bowel Resection, Cholecystectomy, Heart Catheterization With Stent, Hernia Repair, Pacemaker Additional Past Surgical History / Comment(s): PTCA with stent (4 total), 04/05/13 [employer] pacemaker, 1989' umbilical hernia repair, colonoscopy, circumcision, R eye surgery for strabismus, gallbladder stents One removed from HF on 03/19, Colostomy with open wounds. Past Anesthesia/Blood Transfusion Reactions: No Reported Reaction Date of Last Stent Placement:: 2012 Type of Cardiac Device: Permanent Pacemaker Device Placement Date:: 04/05/13 Past Psychological History: No Psychological Hx Reported Smoking Status: Current every day smoker Past Alcohol Use History: None Reported Past Drug Use History: None Reported - Past Family History Father Family Medical History: Musculoskeletal Disorder, Neurologic Disorder Additional Family Medical History / Comment(s): Father had parkinson's dx and at age 84 yrs. Mother Family Medical History: Myocardial Infarction ([place]) Additional Family Medical History / Comment(s): Mother had 3 vessel CABG. She of a massive [place] at the age of 53 yrs. Medications and Allergies Home Medications Medication Instructions Recorded Confirmed Type Isosorbide Mononitrate ER [Imdur] 60 mg PO DAILY 04/25/17 02/07/23 History Metoprolol Succinate [Toprol XL] 50 mg PO DAILY 02/14/19 02/07/23 History Clopidogrel [Plavix] 75 mg PO DAILY 03/20/19 02/07/23 History Albuterol Inhaler [Ventolin Hfa 1 - 2 puff INHALATION RT-Q6H PRN 02/07/23 02/07/23 History Inhaler] Amoxic-Pot Clav 875-125Mg 1 tab PO Q12HR 02/07/23 02/07/23 History [Augmentin 875-125] Cyanocobalamin (Vitamin B-12) 1,000 mcg PO DAILY 02/07/23 02/07/23 History [Vitamin B-12] Folic Acid 0.4 mg PO DAILY 02/07/23 02/07/23 History Losartan [Cozaar] 50 mg PO HS 02/07/23 02/07/23 History Sennosides/Docusate Sodium [Senna 1 tab PO BID 02/07/23 02/07/23 History Plus 8.6-50 mg Tablet] oxyCODONE HCL/ACETAMINOPHEN 1 tab PO Q6HR PRN 02/07/23 02/07/23 History [Percocet 10-325 mg] Allergies Allergy/AdvReac Type Severity Reaction Status Date / Time No Known Allergies Allergy Verified 02/07/23 16:43 Physical Exam Vitals: Vital Signs Temp Pulse Resp BP Pulse Ox 02/07/23 17:23 62 18 148/87 98 02/07/23 14:22 72 02/07/23 14:06 64 02/07/23 11:20 98 F 64 16 165/77 86 L Intake and Output 02/07/23 02/07/23 02/07/23 06:59 14:59 22:59 Other: Weight 172.365 kg Results CBC & Chem 7: 02/07/23 14:15 02/07/23 14:15 Labs: Abnormal Lab Results - Last 24 Hours (Table) 02/07/23 Range/Units 14:15 Carbon Dioxide 34 H (22-30) mmol/L BUN 30 H (9-20) mg/dL Glucose 133 H (74-99) mg/dL AST 69 H (17-59) U/L ALT 139 H (4-49) U/L Alkaline Phosphatase 182 H (38-126) U/L
[2023-02-07] MEDS: FORMOTEROL FUMARATE 20 MCG/2 ML NEBU INHALATION SCH (21:52)
[2023-02-07] MEDS: BUDESONIDE 1 MG/2 ML NEBU INHALATION SCH (21:52)
[2023-02-07] MEDS: IPRATROPIUM-ALBUTEROL 3 ML NEB INHALATION SCH ×2 (21:53→23:37)
[2023-02-07] MEDS: NICOTINE 14MG/24HR PATCH TRANSDERM SCH ×2 (22:31→22:32)
[2023-02-07] MEDS: guaiFENesin 600 MG TABLET.ER PO SCH (22:31)
[2023-02-08] MEDS: methylPREDNISolone SOD SUCCI 125 MG/2 ML VIAL IV SCH ×3 (00:10→12:26)
[2023-02-08] MEDS: oxyCODONE-APAP 10-325MG 1 EACH TAB PO PRN ×4 (00:18→20:50)
[2023-02-08] MEDS: IPRATROPIUM-ALBUTEROL 3 ML NEB INHALATION SCH ×5 (06:34→20:22)
--- NOTE | 2023-02-08 07:13 | P.CNPUL ---
History of Present Illness Consult date: 02/08/23 Requesting physician: Jose R Cueva Reason for consult: COPD Chief complaint: Shortness of breath History of present illness: I am seeing this patient in new consultation today 02/08/2023 for possible COPD exacerbation. Patient is a 67-year-old white male with past medical history significant for COPD, chronic ongoing tobacco dependence, coronary artery disease with previous stent placements 4, ischemic cardiomyopathy status post AICD placement, CVA, hypertension, hyperlipidemia, bilateral lower extremity lymphedema, morbid obesity, and colostomy. Patient presented to the emergency r oom yesterday morning complaining of shortness of breath for the past "couple weeks". He states this is accompanied with a cough with clear sputum. He denies any fever, chills, myalgias, hemoptysis. He continues to smoke approximately 1 pack per day, and is over a [id number] smoker. Admits exe rtional left-sided "chest pressure", that subsides with rest, and is non- radiating. He does have history of coronary artery disease and prior coronary stents. He does have chronic lower extremity swelling. Currently he is sitting up in the recliner, on 2 L/m nasal cannula, in no acute distress. Chest x-ray on arrival showed no acute cardiopulmonary process. NT proBNP was low. Troponin less than 0.012. ECG showed normal sinus rhythm without any obvious acute ischemic changes. CBC on arrival is unremarkable. No leukocytosis. BMP shows a sodium 140, potassium 4.4, chloride 98, serum bicarbonate 34, BUN 30, creatinine 0.98, glucose 133. LFTs mildly elevated. He is afebrile. empirical ly been started on Augmentin. On a combination of DuoNeb's, budesonide, formoterol, and IV Solu-Medrol. There is a minimal expiratory wheeze on auscultation. Patient appears stable, and is currently admitted to the observation unit. Review of Systems REVIEW OF SYSTEMS: CONSTITUTIONAL: Denies any recent significant weight loss or weight gain, He d oes not weigh himself EYES: Denies change in vision. EARS, NOSE, MOUTH, THROAT: Denies headaches, denies sore throat. CARDIOVASCULAR: Denies palpitations, lightheadedness, or syncopal episodes. Admits chest pain as described in HPI. Admits chronic lower extremity swelling. RESPIRATORY See HPI GASTROINTESTINAL: Denies change in appetite, abdominal pain, nausea and vomiting, or diarrhea. admits ostomy GENITOURINARY: Denies hematuria, denies infections. MUSKULOSKELETAL: Denies pain, denies swelling. INTEGUMENTARY: Denies rash, denies eczema. NEUROLOGICAL: Denies recent memory loss, no recent seizure activity. PSYCHIATRIC: Denies anxiety, denies depression. HEMATOLOGIC/LYMPHATIC: Denies anemia, denies enlarged lymph node Past Medical History Past Medical History: Coronary Artery Disease (CAD), Chest Pain / Angina, COPD, CVA/TIA, Hyperlipidemia, Hypertension, Myocardial Infarction ([place]), Osteoarthritis (OA), Respiratory Disorder, Sleep Apnea/CPAP/BIPAP Additional Past Medical History / Comment(s): obesity, obesity hypoventilation syndrome, suspected CHF and cor pulmonale, previous history of defibrillator placement, CVA in 2004, chronic back pain secondary to DDD and spinal canal stenosis, history of vertebral fracture L2 through L5, chronic lower extremity edema, diverticular disease, L knee fx in past and torn R rotator cuff, cellulitis, hospitalization for gallbladder complications Last Myocardial Infarction Date:: 2011 History of Any Multi-Drug Resistant Organisms: None Reported Past Surgical History: Bowel Resection, Cholecystectomy, Heart Catheterization With Stent, Hernia Repair, Pacemaker Additional Past Surgical History / Comment(s): PTCA with stent (4 total), 04/05/13 [employer] pacemaker, umbilical hernia repair, colonoscopy, circumcision, R eye surgery for strabismus, gallbladder stents One removed from on 03/19, Colostomy with open wounds. Past Anesthesia/Blood Transfusion Reactions: No Reported Reaction Date of Last Stent Placement:: 2012 Type of Cardiac Device: Permanent Pacemaker Device Placement Date:: 04/05/13 Past Psychological History: No Psychological Hx Reported Additional Psychological History / Comment(s): Pt is living in a homE Alone. He can drive. Has cane or walker PRN. Smoking Status: Current every day smoker Past Alcohol Use History: None Reported Additional Past Alcohol Use History / Comment(s): Pt states he started smoking around 1970 and smokes half a pack per day. Last smoking was this morning. Past Drug Use History: None Reported - Past Family History Father Family Medical History: Musculoskeletal Disorder, Neurologic Disorder Additional Family Medical History / Comment(s): Father had parkinson's dx and at age 84 yrs. Mother Family Medical History: Myocardial Infarction ([place]) Additional Family Medical History / Comment(s): Mother had 3 vessel CABG. She of a massive [place] at the age of 53 yrs. Medications and Allergies Home Medications Medication Instructions Recorded Confirmed Type Isosorbide Mononitrate ER [Imdur] 60 mg PO DAILY 04/25/17 02/07/23 History Metoprolol Succinate [Toprol XL] 50 mg PO DAILY 02/14/19 02/07/23 History Clopidogrel [Plavix] 75 mg PO DAILY 03/20/19 02/07/23 History Albuterol Inhaler [Ventolin Hfa 1 - 2 puff INHALATION RT-Q6H PRN 02/07/23 02/07/23 History Inhaler] Amoxic-Pot Clav 875-125Mg 1 tab PO Q12HR 02/07/23 02/07/23 History [Augmentin 875-125] Cyanocobalamin (Vitamin B-12) 1,000 mcg PO DAILY 02/07/23 02/07/23 History [Vitamin B-12] Folic Acid 0.4 mg PO DAILY 02/07/23 02/07/23 History Losartan [Cozaar] 50 mg PO HS 02/07/23 02/07/23 History Sennosides/Docusate Sodium [Senna 1 tab PO BID 02/07/23 02/07/23 History Plus 8.6-50 mg Tablet] oxyCODONE HCL/ACETAMINOPHEN 1 tab PO Q6HR PRN 02/07/23 02/07/23 History [Percocet 10-325 mg] Allergies Allergy/AdvReac Type Severity Reaction Status Date / Time No Known Allergies Allergy Verified 02/07/23 16:43 Physical Exam Vitals: Vital Signs Temp Pulse Pulse Resp BP BP Pulse Ox 02/08/23 06:00 68 02/08/23 05:50 68 02/08/23 00:24 62 22 02/07/23 23:47 60 02/07/23 23:37 60 02/07/23 22:10 98.2 F 62 22 161/85 93 L 02/07/23 21:45 94 L 02/07/23 20:34 60 02/07/23 20:23 60 02/07/23 17:23 62 18 148/87 98 02/07/23 14:22 72 02/07/23 14:06 64 02/07/23 11:20 98 F 64 16 165/77 86 L Intake and Output 02/07/23 02/07/23 02/08/23 14:59 22:59 06:59 Other: Voiding Method Urinal Weight 172.365 kg 172.365 kg GENERAL EXAM: Alert, 67-year-old obese white male , comfortable in no apparent distress. HEAD: Normocephalic and atraumatic EYES: Normal reaction of pupils, equal size. NOSE: Clear with pink turbinates. THROAT: No erythema or exudates. NECK: No masses, no JVD. CHEST: No chest wall deformity. Implanted device left chest LUNGS: Equal air entry with mild expiratory wheezes heard throughout. No crackles, rhonchi, focal dullness. On 2 L/m nasal cannula. No conversational dyspnea or accessory muscle use.. CVS: S1 and S2 normal with no audible murmur, regular rhythm. No extra heart sounds ABDOMEN: Obese abdomen, colostomy within the left lower quadrant, old midline abdominal incision appears to be healed by secondary intention, no hepatosplenomegaly, active bowel sounds, no guarding or rigidity. SPINE: No scoliosis or deformity SKIN:Bilateral lower extremity chronic venous changes CENTRAL NERVOUS SYSTEM: No focal deficits, tone is normal in all 4 extremities. EXTREMITIES: Significant bilateral lower extremity lymphedema. Nog, or cyanosis. Peripheral pulses are intact. Results - Laboratory Findings CBC and BMP: 02/07/23 14:15 02/07/23 14:15 PT/INR, D-dimer PT 10.4 sec (9.0-12.0) 02/07/23 14:15 INR 1.0 (<1.2) 02/07/23 14:15 Abnormal lab findings: Abnormal Labs 02/07/23 14:15 Carbon Dioxide 34 H BUN 30 H Glucose 133 H AST 69 H ALT 139 H Alkaline Phosphatase 182 H - Diagnostic Findings Chest x-ray: image reviewed Assessment and Plan Assessment: Suspected acute COPD exacerbation, chest x-ray on arrival shows no acute cardiopulmonary process. No focal consolidation or evidence of pneumonia. Acute hypoxemic respiratory failure, secondary to above, currently on 2 L/m nasal cannula Chronic ongoing tobacco dependence Coronary artery disease, with previous stent placement 4 History of ischemic cardiomyopathy, status post AICD placement, most recent echocardiogram from 2019 showed a preserved LV function with an EF of around 50- 55%. History of CVA Benign essential hypertension Hyperlipidemia Bilateral lower extremity lymphedema Obstructive sleep apnea, previously utilized home CPAP Morbid obesity, with a BMI of 51.5 kg/m Plan: Patient's medications, labs, chest x-ray reviewed Continue supplemental oxygen Continue combination of bronchodilators, formoterol, budesonide, IV Solu-Medrol Currently receiving empiric antibiotics, check procalcitonin level, and manage antibiotics accordingly Rule out COVID-19 Smoking cessation counseling performed Refused nicotine patch We will continue to follow and further recommendations are forthcoming I have personally seen and examined the patient, performed the documentation and the assessment and plan as written. Number of minutes spent on the visit:20 This is a joint evaluation that was done along with the nurse practitioner. The patient is being seen for shortness of breath. The patient advanced COPD. The patient also has cardiomyopathy. He has history of obstructive sleep apnea and yet he has not been able to utilize a home CPAP machine. He is a chronic smoker. I would suggest continuing the current treatment for now as the patient is currently on bronchodilators, steroids and empiric antibiotic coverage with Augmentin. Chest x-ray showed no clear evidence of pneumonia. All medications have been resumed. He will need obviously follow up on outpatient basis regarding his COPD and obstructive sleep apnea. Is reasonable to evaluate this patient for CPAP therapy with BiPAP therapy on outpatient basis. Repeat echocardiogram. Time with Patient: Greater than 30
[2023-02-08] MEDS: FORMOTEROL FUMARATE 20 MCG/2 ML NEBU INHALATION SCH ×2 (09:36→20:22)
[2023-02-08] MEDS: BUDESONIDE 1 MG/2 ML NEBU INHALATION SCH ×2 (09:36→20:22)
[2023-02-08] MEDS: ISOSORBIDE MONONITRATE ER 60 MG TAB.ER.24H PO SCH (09:39)
[2023-02-08] MEDS: NICOTINE 14MG/24HR PATCH TRANSDERM SCH (09:40)
[2023-02-08] MEDS: METOPROLOL SUCCINATE (ER) 50 MG TAB.ER.24H PO SCH (09:40)
[2023-02-08] MEDS: CYANOCOBALAMIN 500 MCG TAB PO SCH (09:40)
[2023-02-08] MEDS: AMOXIC-POT CLAV 875-125MG 1 EACH TAB PO SCH ×2 (09:40→21:37)
[2023-02-08] MEDS: SENNOSIDES-DOCUSATE SODIUM 1 EACH TAB PO SCH ×2 (09:40→20:51)
[2023-02-08] MEDS: CLOPIDOGREL 75 MG TAB PO SCH (09:40)
[2023-02-08] MEDS: guaiFENesin 600 MG TABLET.ER PO SCH ×4 (09:40→20:51)
[2023-02-08] MEDS: FOLIC ACID 1 MG TAB PO SCH (09:40)
--- NOTE | 2023-02-08 17:39 | P.PN ---
Progress Note - Text Progress Note Date: 02/08/23 Chief Complaint: Short of breath History of presenting complaint: This is a 67-year-old patient of Dr. Min. Chronic stable medical conditions include coronary artery disease with stent, hypertension, hyperlipidemia, obstructive sleep apnea, colonic diverticulosis, arthritis, chronic lumbar pain at L2 to L5, recurrent fractures, AICD. Chronic hypoxic respiratory failure on 2 L oxygen at home, morbid obesity, obesity hypoventilation syndrome chronic congestive heart failure from diastolic dysfunction EF 50-55%. Colostomy bag. Patient presents with increasing shortness of breath. Chills. Sputum that is clear. Tired. Some decrease in appetite. Has chronic lower extremity venous edema. No fevers. Tired. Admitted with acute COPD exacerbation. February 08: Breathing better. Decreased wheezing. Decreased sputum production. Cutback IV Solu-Medrol. Discussed with patient. Counseled about smoking. We'll assess for home oxygen in the morning. Active Medications Albuterol/Ipratropium (Ipratropium-Albuterol 3 Ml Neb) 3 ml INHALATION RT-Q2H PRN PRN Reason: Shortness Of Breath Or Wheezing Albuterol/Ipratropium (Ipratropium-Albuterol 3 Ml Neb) 3 ml INHALATION Q4H [facility] Last Admin: 02/08/23 16:22 Dose: 3 ml Amoxicillin/Clavulanate Potassium (Amoxic-Pot Clav 875-125mg 1 Each Tab) 1 each PO Q12HR [facility]; Protocol Stop: 02/12/23 09:01 Last Admin: 02/08/23 09:40 Dose: 1 each Budesonide (Budesonide 1 Mg/2 Ml Nebu) 1 mg INHALATION RT-BID [facility] Last Admin: 02/08/23 09:36 Dose: 1 mg Clopidogrel Bisulfate (Clopidogrel 75 Mg Tab) 75 mg PO DAILY [facility] Last Admin: 02/08/23 09:40 Dose: 75 mg Cyanocobalamin (Cyanocobalamin 500 Mcg Tab) 1,000 mcg PO DAILY [facility] Last Admin: 02/08/23 09:40 Dose: 1,000 mcg Folic Acid (Folic Acid 1 Mg Tab) 0.5 mg PO DAILY [facility] Last Admin: 02/08/23 09:40 Dose: 0.5 mg Formoterol Fumarate (Formoterol Fumarate 20 Mcg/2 Ml Nebu) 20 mcg INHALATION RT-BID [facility] Last Admin: 02/08/23 09:36 Dose: 20 mcg Guaifenesin (Guaifenesin 600 Mg Tablet.Er) 600 mg PO QID [facility] Last Admin: 02/08/23 12:26 Dose: 600 mg Isosorbide Mononitrate (Isosorbide Mononitrate Er 60 Mg Tab.Er.24h) 60 mg PO DAILY [facility] Last Admin: 02/08/23 09:39 Dose: 60 mg Losartan Potassium (Losartan 50 Mg Tab) 50 mg PO HS [facility] Last Admin: 02/07/23 21:10 Dose: 50 mg Methylprednisolone Sodium Succinate (Methylprednisolone Sod Succi 125 Mg/2 Ml Vial) 40 mg IV Q8H [facility] Metoprolol Succinate (Metoprolol Succinate (Er) 50 Mg Tab.Er.24h) 50 mg PO DAILY [facility] Last Admin: 02/08/23 09:40 Dose: 50 mg Naloxone HCl (Naloxone 0.4 Mg/Ml 1 Ml Vial) 0.2 mg IVP Q2M PRN PRN Reason: Opioid Reversal Nicotine (Nicotine 14mg/24hr Patch) 1 patch TRANSDERM DAILY [facility] Last Admin: 02/08/23 09:40 Dose: Not Given Nystatin (Nystatin 100,000 Unit/Gm Powd 15 Gm) 1 applic TOPICAL BID [facility]; Protocol Oxycodone/Acetaminophen (Oxycodone-Apap 10-325mg 1 Each Tab) 1 each PO Q6HR PRN PRN Reason: Pain Last Admin: 02/08/23 14:16 Dose: 1 each Senna/Docusate Sodium (Sennosides-Docusate Sodium 1 Each Tab) 1 each PO BID [facility] Last Admin: 02/08/23 09:40 Dose: 1 each Past medical history: COPD in an ex-smoker, CHF from diastolic 50-55%, obesity hypoventilation syndrome, coronary artery disease with stent, hyperlipidemia, hypertension, AICD, chronic low back pain L2 to L5 as chronic fractures, morbid obesity, home oxygen 2 L, and right rotator cuff Social history: Lives alone . Smokes about half a pack a day.. No alcohol. Physical examination: VITAL SIGNS: 98.4, 91, 16, 1:30/97, 91% room air GENERAL: Up in a chair, liver short of breath EYES: Pupils equal. Conjunctiva normal. HEENT: External appearance of nose and ears normal, oral cavity grossly normal. NECK: JVD unable to assess; masses not palpable. HEART: Heart sounds muffled, edema. LUNGS: Respiratory rate increased, decreased breath sound. Round expiration EXTREMITY: Area. of Redness above the ankle both lower legs. Edema. ABDOMEN: Soft, nontender, colostomy bag , liver spleen not palpable. PSYCH: Alert and oriented x3; mood and affect normal. INVESTIGATIONS, reviewed in the clinical context: Procalcitonin 0.04 February 07: White count 5.6 hemoglobin 16.3 platelets 175 sodium 140 potassium 4.4 BUN 30 creatinine 0.98 AST 69 ALT 139 Troponin I less than 0.012. ProBNP 35 EKG tracing personally reviewed by me-normal sinus rhythm. Nonspecific ST/T- wave changes. Chest x-ray film personally reviewed by me-pacemaker. Assessment and plan: -Acute COPD exacerbation in a current smoker, with acute probable viral bronchitis: Improving Nebulized Perforomist. DuoNeb 4 times a day. Nebulized Pulmicort twice a day. IV [id number] to 40 mg every 8. -Chronic bilateral lower, venous insufficiency Manpreet wrap -Chronic nicotine dependence, cigarette smoker Nicotine patch - peripheral neuropathy -Colostomy bag -Chronic congestive heart failure from diastolic dysfunction EF 50-55% Follow fluid status -Obesity hypoventilation syndrome -Coronary artery disease with stent Plavix. Toprol-XL -Hyperlipidemia -Essential hypertension Cozaar 50 mg daily at bedtime. Imdur ER 60 mg daily. Toprol-XL 50 mg day. -AICD -Chronic low back pain from L2 to L5 osteoarthritis with chronic fractures -Morbid obesity BMI 51.5 Weight loss measures -Chronic hypoxic respiratory failure , secondary to underlying COPD on 2 L oxygen at home -Chronic medical debility uses a motorized wheelchair Cutback Solu-Medrol. Other medications to continue. Relevant oxygen for home in the morning. Past Medical History Past Medical History: Coronary Artery Disease (CAD), Chest Pain / Angina, COPD, CVA/TIA, Hyperlipidemia, Hypertension, Myocardial Infarction ([place]), Osteoarthritis (OA), Respiratory Disorder, Sleep Apnea/CPAP/BIPAP Additional Past Medical History / Comment(s): obesity, obesity hypoventilation syndrome, suspected CHF and cor pulmonale, previous history of defibrillator placement, CVA in 2004, chronic back pain secondary to DDD and spinal canal stenosis, history of vertebral fracture L2 through L5, chronic lower extremity edema, diverticular disease, L knee fx in past and torn R rotator cuff, cellulitis, recent hospitalization for gallbladder issues, states 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 Past Anesthesia/Blood Transfusion Reactions: No Reported Reaction Date of Last Stent Placement:: 2012 Type of Cardiac Device: Permanent Pacemaker Device Placement Date:: 04/05/13 Past Psychological History: No Psychological Hx Reported Smoking Status: Current every day smoker Past Alcohol Use History: None Reported Past Drug Use History: None Reported - Past Family History Father Family Medical History: Musculoskeletal Disorder, Neurologic Disorder Additional Family Medical History / Comment(s): Father had parkinson's dx and at age 84 yrs. Mother Family Medical History: Myocardial Infarction ([place]) Additional Family Medical History / Comment(s): Mother had 3 vessel CABG. She of a massive [place] at the age of 53 yrs. Medications and Allergies Home Medications Medication Instructions Recorded Confirmed Type Isosorbide Mononitrate ER [Imdur] 60 mg PO DAILY 04/25/17 02/07/23 History Metoprolol Succinate [Toprol XL] 50 mg PO DAILY 02/14/19 02/07/23 History Clopidogrel [Plavix] 75 mg PO DAILY 03/20/19 02/07/23 History Albuterol Inhaler [Ventolin Hfa 1 - 2 puff INHALATION RT-Q6H PRN 02/07/23 02/07/23 History Inhaler] Amoxic-Pot Clav 875-125Mg 1 tab PO Q12HR 02/07/23 02/07/23 History [Augmentin 875-125] Cyanocobalamin (Vitamin B-12) 1,000 mcg PO DAILY 02/07/23 02/07/23 History [Vitamin B-12] Folic Acid 0.4 mg PO DAILY 02/07/23 02/07/23 History Losartan [Cozaar] 50 mg PO HS 02/07/23 02/07/23 History Sennosides/Docusate Sodium [Senna 1 tab PO BID 02/07/23 02/07/23 History Plus 8.6-50 mg Tablet] oxyCODONE HCL/ACETAMINOPHEN 1 tab PO Q6HR PRN 02/07/23 02/07/23 History [Percocet 10-325 mg] Allergies Allergy/AdvReac Type Severity Reaction Status Date / Time No Known Allergies Allergy Verified 02/07/23 16:43
[2023-02-08] MEDS: methylPREDNISolone SOD SUCCI 40 MG/ML 1 ML VIAL IV SCH (18:01)
[2023-02-08] MEDS: LOSARTAN 50 MG TAB PO SCH (20:51)
[2023-02-08] MEDS ORDERED: NYSTATIN 100,000 UNIT/GM POWD 15 GM TOPICAL SCH (21:00)
[2023-02-08] MEDS: NYSTATIN 100,000UNIT/GM CREAM 30 GM TUBE TOPICAL SCH ×2 (21:37→21:45)
[2023-02-09] MEDS: IPRATROPIUM-ALBUTEROL 3 ML NEB INHALATION SCH ×8 (00:59→23:56)
[2023-02-09] MEDS: methylPREDNISolone SOD SUCCI 40 MG/ML 1 ML VIAL IV SCH ×3 (01:00→17:35)
[2023-02-09] MEDS: oxyCODONE-APAP 10-325MG 1 EACH TAB PO PRN ×4 (04:50→22:33)
[2023-02-09] MEDS: BUDESONIDE 1 MG/2 ML NEBU INHALATION SCH ×2 (08:54→20:28)
[2023-02-09] MEDS: FORMOTEROL FUMARATE 20 MCG/2 ML NEBU INHALATION SCH ×2 (09:07→20:28)
[2023-02-09] MEDS: NYSTATIN 100,000UNIT/GM CREAM 30 GM TUBE TOPICAL SCH ×2 (10:14→22:32)
[2023-02-09] MEDS: AMOXIC-POT CLAV 875-125MG 1 EACH TAB PO SCH ×2 (10:15→22:34)
[2023-02-09] MEDS: ISOSORBIDE MONONITRATE ER 60 MG TAB.ER.24H PO SCH (10:15)
[2023-02-09] MEDS: METOPROLOL SUCCINATE (ER) 50 MG TAB.ER.24H PO SCH (10:15)
[2023-02-09] MEDS: CYANOCOBALAMIN 500 MCG TAB PO SCH (10:15)
[2023-02-09] MEDS: NICOTINE 14MG/24HR PATCH TRANSDERM SCH (10:16)
[2023-02-09] MEDS: CLOPIDOGREL 75 MG TAB PO SCH (10:16)
[2023-02-09] MEDS: SENNOSIDES-DOCUSATE SODIUM 1 EACH TAB PO SCH ×2 (10:16→22:34)
[2023-02-09] MEDS: FOLIC ACID 1 MG TAB PO SCH (10:16)
[2023-02-09] MEDS: guaiFENesin 600 MG TABLET.ER PO SCH ×4 (10:16→22:33)
[2023-02-09 10:35] VITALS: RESP 16
--- NOTE | 2023-02-09 13:45 | P.PN ---
Subjective Progress Note Date: 02/09/23 I am seeing this patient in new consultation today 02/08/2023 for possible COPD exacerbation. Patient is a 67-year-old white male with past medical history significant for COPD, chronic ongoing tobacco dependence, coronary artery disease with previous stent placements 4, ischemic cardiomyopathy status post AICD placement, CVA, hypertension, hyperlipidemia, bilateral lower extremity lymphedema, morbid obesity, and colostomy. Patient presented to the emergency room yesterday morning complaining of shortness of breath for the past "couple weeks". He states this is accompanied with a cough with clear sputum. He denies any fever, chills, myalgias, hemoptysis. He continues to smoke approximately 1 pack per day, and is over a [id number] smoker. Admits exertional left-sided "chest pressure", that subsides with rest, and is non- radiating. He does have history of coronary artery disease and prior coronary stents. He does have chronic lower extremity swelling. Currently he is sitting up in the recliner, on 2 L/m nasal cannula, in no acute distress. Chest x-ray on arrival showed no acute cardiopulmonary process. NT proBNP was low. Troponin less than 0.012. ECG showed normal sinus rhythm without any obvious acute ischemic changes. CBC on arrival is unremarkable. No leukocytosis. BMP shows a sodium 140, potassium 4.4, chloride 98, serum bicarbonate 34, BUN 30, creatinine 0.98, glucose 133. LFTs mildly elevated. He is afebrile. empirically been started on Augmentin. On a combination of DuoNeb's, budesonide, formoterol, and IV Solu-Medrol. There is a minimal expiratory wh eeze on auscultation. Patient appears stable, and is currently admitted to the observation unit. On today's evaluation of 02/09/2023, the patient is getting better compared to yesterday. Remains on bronchodilators. Remains on IV Solu-Medrol 40 mg every 8 hours. The patient is also on empiric antibiotic coverage with Augmentin. Blood work shows a pro-calcitonin level of 0.04. Remains on oxygen at 3 L with a pulse ox of 93%. No new complaints. No signs of any CO2 narcosis. Objective - Vital Signs Vital signs: Vital Signs Temp 98.0 F 02/09/23 07:00 Pulse 75 02/09/23 09:18 Resp 16 02/09/23 07:00 BP 132/69 02/09/23 07:00 Pulse Ox 89 L 02/09/23 10:35 FiO2 Intake & Output 02/08/23 02/09/23 02/09/23 18:59 06:59 18:59 Intake Total 720 118 Output Total 400 300 Balance 320 -300 118 Intake: Oral 720 118 Output: Urine 400 300 Other: Voiding Method Urinal Urinal Urinal # Voids 2 1 # Bowel Movements 1 - Exam GENERAL EXAM: Alert, 67-year-old obese white male , comfortable in no apparent distress. HEAD: Normocephalic and atraumatic EYES: Normal reaction of pupils, equal size. NOSE: Clear with pink turbinates. THROAT: No erythema or exudates. NECK: No masses, no JVD. CHEST: No chest wall deformity. Implanted device left chest LUNGS: Equal air entry with mild expiratory wheezes heard throughout. No crackles, rhonchi, focal dullness. On 2 L/m nasal cannula. No conversational dyspnea or accessory muscle use.. CVS: S1 and S2 normal with no audible murmur, regular rhythm. No extra heart sounds ABDOMEN: Obese abdomen, colostomy within the left lower quadrant, old midline abdominal incision appears to be healed by secondary intention, no hepatosplenomegaly, active bowel sounds, no guarding or rigidity. SPINE: No scoliosis or deformity SKIN:Bilateral lower extremity chronic venous changes CENTRAL NERVOUS SYSTEM: No focal deficits, tone is normal in all 4 extremities. EXTREMITIES: Significant bilateral lower extremity lymphedema. Nog, or cyanosis. Peripheral pulses are intact. - Labs CBC & Chem 7: 02/07/23 14:15 02/07/23 14:15 Labs: Microbiology - Last 24 Hours (Table) 02/07/23 14:25 Blood Culture - Preliminary Blood Assessment and Plan Assessment: acute on chronic COPD exacerbation, chest x-ray on arrival shows no acute cardiopulmonary process. No focal consolidation or evidence of pneumonia. Acute hypoxemic respiratory failure, secondary to above, currently on 3 L/m nasal cannula Shortness of breath secondary to above Chronic ongoing tobacco dependence Coronary artery disease, with previous stent placement 4 History of ischemic cardiomyopathy, status post AICD placement, most recent echocardiogram from 2019 showed a preserved LV function with an EF of around 50- 55%. History of CVA Benign essential hypertension Hyperlipidemia Bilateral lower extremity lymphedema Obstructive sleep apnea, previously utilized home CPAP Morbid obesity, with a BMI of 51.5 kg/m Plan: Continue bronchodilators and steroids Continue oral Augmentin Chest x-ray showed no clear evidence of pneumonia. All medications have been resumed. He will need obviously follow up on outpatient basis regarding his COPD and obstructive sleep apnea. Is reasonable to evaluate this patient for CPAP therapy with BiPAP therapy on outpatient basis. Repeat echocardiogram.
[2023-02-09] MEDS: LOSARTAN 50 MG TAB PO SCH (22:33)
[2023-02-10] MEDS: methylPREDNISolone SOD SUCCI 40 MG/ML 1 ML VIAL IV SCH ×2 (02:32→09:22)
[2023-02-10] MEDS: IPRATROPIUM-ALBUTEROL 3 ML NEB INHALATION SCH ×4 (04:16→16:01)
[2023-02-10] MEDS: oxyCODONE-APAP 10-325MG 1 EACH TAB PO PRN ×2 (04:21→10:22)
[2023-02-10] MEDS: FORMOTEROL FUMARATE 20 MCG/2 ML NEBU INHALATION SCH (08:58)
[2023-02-10] MEDS: BUDESONIDE 1 MG/2 ML NEBU INHALATION SCH (08:58)
[2023-02-10] MEDS: AMOXIC-POT CLAV 875-125MG 1 EACH TAB PO SCH (09:23)
[2023-02-10] MEDS: METOPROLOL SUCCINATE (ER) 50 MG TAB.ER.24H PO SCH (09:23)
[2023-02-10] MEDS: SENNOSIDES-DOCUSATE SODIUM 1 EACH TAB PO SCH (09:23)
[2023-02-10] MEDS: guaiFENesin 600 MG TABLET.ER PO SCH ×2 (09:23→14:11)
[2023-02-10] MEDS: ISOSORBIDE MONONITRATE ER 60 MG TAB.ER.24H PO SCH (09:23)
[2023-02-10] MEDS: CYANOCOBALAMIN 500 MCG TAB PO SCH (09:23)
[2023-02-10] MEDS: FOLIC ACID 1 MG TAB PO SCH (09:23)
[2023-02-10] MEDS: CLOPIDOGREL 75 MG TAB PO SCH (09:23)
[2023-02-10] MEDS: NYSTATIN 100,000UNIT/GM CREAM 30 GM TUBE TOPICAL SCH (09:24)
[2023-02-10] MEDS: NICOTINE 14MG/24HR PATCH TRANSDERM SCH (09:47)
--- NOTE | 2023-02-10 09:55 | P.PN ---
Progress Note - Text Progress Note Date: 02/09/23 Chief Complaint: Short of breath History of presenting complaint: This is a 67-year-old patient of Dr. Min. Chronic stable medical conditions include coronary artery disease with stent, hypertension, hyperlipidemia, obstructive sleep apnea, colonic diverticulosis, arthritis, chronic lumbar pain at L2 to L5, recurrent fractures, AICD. Chronic hypoxic respiratory failure on 2 L oxygen at home, morbid obesity, obesity hypoventilation syndrome chronic congestive heart failure from diastolic dysfunction EF 50-55%. Colostomy bag. Patient presents with increasing shortness of breath. Chills. Sputum that is clear. Tired. Some decrease in appetite. Has chronic lower extremity venous edema. No fevers. Tired. Admitted with acute COPD exacerbation. February 08: Breathing better. Decreased wheezing. Decreased sputum production. Cutback IV Solu-Medrol. Discussed with patient. Counseled about smoking. We'll assess for home oxygen in the morning. February 09: Doing better. Discussed with patient. Counseled about smoking. Patient does qualify for home oxygen. Chronic hypoxic respiratory failure from COPD. Home oxygen cannot be delivered because of technical problems with the delivery place. Otherwise eating well. Current medications reviewed Past medical history: COPD in an ex-smoker, CHF from diastolic 50-55%, obesity hypoventilation syndrome, coronary artery disease with stent, hyperlipidemia, hypertension, AICD, chronic low back pain L2 to L5 as chronic fractures, morbid obesity, home oxygen 2 L, and right rotator cuff Social history: Lives alone . Smokes about half a pack a day.. No alcohol. Physical examination: VITAL SIGNS: 98, 64, 15, 150/65, 94% on 3 L GENERAL: Up in a chair, breathing much improved EYES: Pupils equal. Conjunctiva normal. HEENT: External appearance of nose and ears normal, oral cavity grossly normal. NECK: JVD unable to assess; masses not palpable. HEART: Heart sounds muffled, edema. LUNGS: Respiratory rate normal decreased breath sound. EXTREMITY: Area. of Redness above the ankle both lower legs. Edema. ABDOMEN: Soft, nontender, colostomy bag , liver spleen not palpable. PSYCH: Alert and oriented x3; mood and affect normal. INVESTIGATIONS, reviewed in the clinical context: Procalcitonin 0.04 February 07: White count 5.6 hemoglobin 16.3 platelets 175 sodium 140 potassium 4.4 BUN 30 creatinine 0.98 AST 69 ALT 139 Troponin I less than 0.012. ProBNP 35 EKG tracing personally reviewed by me-normal sinus rhythm. Nonspecific ST/T- wave changes. Chest x-ray film personally reviewed by me-pacemaker. Assessment and plan: -Acute COPD exacerbation in a current smoker, with acute probable viral bronchitis: Much better Nebulized Perforomist. DuoNeb 4 times a day. Nebulized Pulmicort twice a day. IV Solu-Medrol- 40 mg every 8. -Chronic bilateral lower, venous insufficiency Manpreet wrap -Chronic nicotine dependence, cigarette smoker Nicotine patch - peripheral neuropathy -Colostomy bag -Chronic congestive heart failure from diastolic dysfunction EF 50-55% Follow fluid status -Obesity hypoventilation syndrome -Coronary artery disease with stent Plavix. Toprol-XL -Hyperlipidemia -Essential hypertension Cozaar 50 mg daily at bedtime. Imdur ER 60 mg daily. Toprol-XL 50 mg day. -AICD -Chronic low back pain from L2 to L5 osteoarthritis with chronic fractures -Morbid obesity BMI 51.5 Weight loss measures -Chronic hypoxic respiratory failure , secondary to underlying COPD on 2 L oxygen at home -Chronic medical debility uses a motorized wheelchair Plan was discharged home but cannot be done so because oxygen cannot be delivere d. Past Medical History Past Medical History: Coronary Artery Disease (CAD), Chest Pain / Angina, COPD, CVA/TIA, Hyperlipidemia, Hypertension, Myocardial Infarction ([place]), Osteoarthritis (OA), Respiratory Disorder, Sleep Apnea/CPAP/BIPAP Additional Past Medical History / Comment(s): obesity, obesity hypoventilation syndrome, suspected CHF and cor pulmonale, previous history of defibrillator placement, CVA in 2004, chronic back pain secondary to DDD and spinal canal stenosis, history of vertebral fracture L2 through L5, chronic lower extremity edema, diverticular disease, L knee fx in past and torn R rotator cuff, cellulitis, recent hospitalization for gallbladder issues, states doesn't normally see energy risk management analyst, just visiting physician although saw one in hospital recently Last Myocardial Infarction Date:: 2011 History of Any Multi-Drug Resistant Organisms: None Reported Past Surgical History: Bowel Resection, Cholecystectomy, Heart Catheterization With Stent, Hernia Repair, Pacemaker Additional Past Surgical History / Comment(s): PTCA with stent (4 total), 04/05/13 [employer] pacemaker, umbilical hernia repair, colonoscopy, circumcision, R eye surgery for strabismus, gallbladder stents One removed from HF on 03/19, Colostomy with open wounds. Past Anesthesia/Blood Transfusion Reactions: No Reported Reaction Date of Last Stent Placement:: 2012 Type of Cardiac Device: Permanent Pacemaker Device Placement Date:: 04/05/13 Past Psychological History: No Psychological Hx Reported Smoking Status: Current every day smoker Past Alcohol Use History: None Reported Past Drug Use History: None Reported - Past Family History Father Family Medical History: Musculoskeletal Disorder, Neurologic Disorder Additional Family Medical History / Comment(s): Father had parkinson's dx and at age 84 yrs. Mother Family Medical History: Myocardial Infarction ([place]) Additional Family Medical History / Comment(s): Mother had 3 vessel CABG. She of a massive [place] at the age of 53 yrs. Medications and Allergies Home Medications Medication Instructions Recorded Confirmed Type Isosorbide Mononitrate ER [Imdur] 60 mg PO DAILY 04/25/17 02/07/23 History Metoprolol Succinate [Toprol XL] 50 mg PO DAILY 02/14/19 02/07/23 History Clopidogrel [Plavix] 75 mg PO DAILY 03/20/19 02/07/23 History Albuterol Inhaler [Ventolin Hfa 1 - 2 puff INHALATION RT-Q6H PRN 02/07/23 02/07/23 History Inhaler] Amoxic-Pot Clav 875-125Mg 1 tab PO Q12HR 02/07/23 02/07/23 History [Augmentin 875-125] Cyanocobalamin (Vitamin B-12) 1,000 mcg PO DAILY 02/07/23 02/07/23 History [Vitamin B-12] Folic Acid 0.4 mg PO DAILY 02/07/23 02/07/23 History Losartan [Cozaar] 50 mg PO HS 02/07/23 02/07/23 History Sennosides/Docusate Sodium [Senna 1 tab PO BID 02/07/23 02/07/23 History Plus 8.6-50 mg Tablet] oxyCODONE HCL/ACETAMINOPHEN 1 tab PO Q6HR PRN 02/07/23 02/07/23 History [Percocet 10-325 mg] Allergies Allergy/AdvReac Type Severity Reaction Status Date / Time No Known Allergies Allergy Verified 02/07/23 16:43
--- NOTE | 2023-02-10 13:43 | P.PN ---
Subjective Progress Note Date: 02/10/23 I am seeing this patient in new consultation today 02/08/2023 for possible COPD exacerbation. Patient is a 67-year-old white male with past medical history significant for COPD, chronic ongoing tobacco dependence, coronary artery disease with previous stent placements 4, ischemic cardiomyopathy status post AICD placement, CVA, hypertension, hyperlipidemia, bilateral lower extremity lymphedema, morbid obesity, and colostomy. Patient presented to the emergency room yesterday morning complaining of shortness of breath for the past "couple weeks". He states this is accompanied with a cough with clear sputum. He denies any fever, chills, myalgias, hemoptysis. He continues to smoke approximately 1 pack per day, and is over a [id number] smoker. Admits exertional left-sided "chest pressure", that subsides with rest, and is non- radiating. He does have history of coronary artery disease and prior coronary stents. He does have chronic lower extremity swelling. Currently he is sitting up in the recliner, on 2 L/m nasal cannula, in no acute distress. Chest x-ray on arrival showed no acute cardiopulmonary process. NT proBNP was low. Troponin less than 0.012. ECG showed normal sinus rhythm without any obvious acute ischemic changes. CBC on arrival is unremarkable. No leukocytosis. BMP shows a sodium 140, potassium 4.4, chloride 98, serum bicarbonate 34, BUN 30, creatinine 0.98, glucose 133. LFTs mildly elevated. He is afebrile. empirically been started on Augmentin. On a combination of DuoNeb's, budesonide, formoterol, and IV Solu-Medrol. There is a minimal expiratory wh eeze on auscultation. Patient appears stable, and is currently admitted to the observation unit. On today's evaluation of 02/09/2023, the patient is getting better compared to yesterday. Remains on bronchodilators. Remains on IV Solu-Medrol 40 mg every 8 hours. The patient is also on empiric antibiotic coverage with Augmentin. Blood work shows a pro-calcitonin level of 0.04. Remains on oxygen at 3 L with a pulse ox of 93%. No new complaints. No signs of any CO2 narcosis. On 02/10/2023, I'm seeing the patient for a follow-up. Patient is chronically debilitated and short of breath. He remains sexually dependent. Currently being treated for an acute choked exacerbation. Lower extremities are elevated and the patient has Manpreet wraps. No new complaints otherwise for now. Patient remains on oxygen at 3 L/m nasal cannula. Remains on bronchodilators. Remains on steroids. Remains on IV Solu-Medrol 40 mg every 8 hours. Objective - Vital Signs Vital signs: Vital Signs Temp 97.4 F L 02/10/23 07:00 Pulse 74 02/10/23 13:07 Resp 16 02/10/23 07:00 BP 138/78 02/10/23 07:00 Pulse Ox 95 02/10/23 09:01 FiO2 Intake & Output 02/09/23 02/10/23 02/10/23 18:59 06:59 18:59 Intake Total 236 118 Output Total 325 550 240 Balance -89 -550 -122 Intake: Oral 236 118 Output: Urine 325 550 240 Other: Voiding Method Urinal # Voids 2 - Exam GENERAL EXAM: Alert, 67-year-old obese white male , comfortable in no apparent distress. HEAD: Normocephalic and atraumatic EYES: Normal reaction of pupils, equal size. NOSE: Clear with pink turbinates. THROAT: No erythema or exudates. NECK: No masses, no JVD. CHEST: No chest wall deformity. Implanted device left chest LUNGS: Equal air entry with mild expiratory wheezes heard throughout. No crackles, rhonchi, focal dullness. On 2 L/m nasal cannula. No conversational dyspnea or accessory muscle use.. CVS: S1 and S2 normal with no audible murmur, regular rhythm. No extra heart sounds ABDOMEN: Obese abdomen, colostomy within the left lower quadrant, old midline abdominal incision appears to be healed by secondary intention, no hepatosplenomegaly, active bowel sounds, no guarding or rigidity. SPINE: No scoliosis or deformity SKIN:Bilateral lower extremity chronic venous changes CENTRAL NERVOUS SYSTEM: No focal deficits, tone is normal in all 4 extremities. EXTREMITIES: Significant bilateral lower extremity lymphedema. Nog, or cyanosis. Peripheral pulses are intact. - Labs CBC & Chem 7: 02/07/23 14:15 02/07/23 14:15 Labs: Microbiology - Last 24 Hours (Table) 02/07/23 14:25 Blood Culture - Preliminary Blood Assessment and Plan Assessment: acute on chronic COPD exacerbation, chest x-ray on arrival shows no acute cardiopulmonary process. No focal consolidation or evidence of pneumonia. Improving slowly Acute hypoxemic respiratory failure, secondary to above, currently on 3 L/m nasal cannula Shortness of breath secondary to above Chronic ongoing tobacco dependence Coronary artery disease, with previous stent placement 4 History of ischemic cardiomyopathy, status post AICD placement, most recent echocardiogram from 2019 showed a preserved LV function with an EF of around 50- 55%. History of CVA Benign essential hypertension Hyperlipidemia Bilateral lower extremity lymphedema Obstructive sleep apnea, previously utilized home CPAP Morbid obesity, with a BMI of 51.5 kg/m Plan: Continue same management and agree on the above. Clinically slightly improved Continue bronchodilators and steroids Continue oral Augmentin Chest x-ray showed no clear evidence of pneumonia. All medications have been re sumed. He will need obviously follow up on outpatient basis regarding his COPD and obstructive sleep apnea. Is reasonable to evaluate this patient for CPAP therapy with BiPAP therapy on outpatient basis. We'll continue to follow
[2023-02-10 15:42] VITALS: PULSE 74
[2023-02-10 16:35] VITALS: BP 132/68; TEMP 98.1
--- NOTE | 2023-02-11 10:56 | P.DS ---
Providers Date of admission: 02/07/23 21:32 Expected date of discharge: 02/11/23 Attending physician: Stevo Winn Consults: 02/07/23 16:03 Consult Physician Routine Consulting Provider: Juan Robbins Consult Reason/Comments: COPD Do you want consulting provider notified?: Yes Primary care physician: [place] Min [facility] Course: Chief Complaint: Short of breath History of presenting complaint: This is a 67-year-old patient of Dr. Min. Chronic stable medical conditions include coronary artery disease with stent, hypertension, hyperlipidemia, obstructive sleep apnea, colonic diverticulosis, arthritis, chronic lumbar pain at L2 to L5, recurrent fractures, AICD. Chronic hypoxic respiratory failure on 2 L oxygen at home, morbid obesity, obesity hypoventilation syndrome chronic congestive heart failure from diastolic dysfunction EF 50-55%. Colostomy bag. Patient presents with increasing shortness of breath. Chills. Sputum that is c lear. Tired. Some decrease in appetite. Has chronic lower extremity venous edema. No fevers. Tired. Admitted with acute COPD exacerbation. February 08: Breathing better. Decreased wheezing. Decreased sputum production. Cutback IV Solu-Medrol. Discussed with patient. Counseled about smoking. We'll assess for home oxygen in the morning. February 09: Doing better. Discussed with patient. Counseled about smoking. Patient does qualify for home oxygen. Chronic hypoxic respiratory failure from COPD. Home oxygen cannot be delivered because of technical problems with the delivery place. Otherwise eating well. February 10: Stable. Sitting up on a chair. Breathing better. Home oxygen being arranged for. He'll follow-up with his jigman. Questions answered. Past medical history: COPD in an ex-smoker, CHF from diastolic 50-55%, obesity hypoventilation syndrome, coronary artery disease with stent, hyperlipidemia, hypertension, AICD, chronic low back pain L2 to L5 as chronic fractures, morbid obesity, home oxygen 2 L, and right rotator cuff Social history: Lives alone . Smokes about half a pack a day.. No alcohol. Physical examination: VITAL SIGNS: 98.1, 74, 16, 132/68, 94% on 3 L GENERAL: Up in a chair, breathing stable EYES: Pupils equal. Conjunctiva normal. HEENT: External appearance of nose and ears normal, oral cavity grossly normal. NECK: JVD unable to assess; masses not palpable. HEART: Heart sounds muffled, edema. LUNGS: Respiratory rate normal decreased breath sound. EXTREMITY: Area. of Redness above the ankle both lower legs. Edema. ABDOMEN: Soft, nontender, colostomy bag , liver spleen not palpable. PSYCH: Alert and oriented x3; mood and affect normal. INVESTIGATIONS, reviewed in the clinical context: Procalcitonin 0.04 February 07: White count 5.6 hemoglobin 16.3 platelets 175 sodium 140 potassium 4.4 BUN 30 creatinine 0.98 AST 69 ALT 139 Troponin I less than 0.012. ProBNP 35 EKG tracing personally reviewed by me-normal sinus rhythm. Nonspecific ST/T- wave changes. Chest x-ray film personally reviewed by me-pacemaker. Assessment and plan: -Acute COPD exacerbation in a current smoker, with acute probable viral bro nchitis: Much better Nebulized Perforomist. DuoNeb 4 times a day. Nebulized Pulmicort twice a day. IV Solu-Medrol- 40 mg every 8. DC home on prednisone taper -Chronic bilateral lower, venous insufficiency Manpreet wrap -Chronic nicotine dependence, cigarette smoker Nicotine patch - peripheral neuropathy -Colostomy bag -Chronic congestive heart failure from diastolic dysfunction EF 50-55% Follow fluid status -Obesity hypoventilation syndrome -Coronary artery disease with stent Plavix. Toprol-XL -Hyperlipidemia -Essential hypertension Cozaar 50 mg daily at bedtime. Imdur ER 60 mg daily. Toprol-XL 50 mg day. -AICD -Chronic low back pain from L2 to L5 osteoarthritis with chronic fractures -Morbid obesity BMI 51.5 Weight loss measures -Chronic hypoxic respiratory failure , secondary to underlying COPD on 2 L oxygen at home -Chronic medical debility uses a motorized wheelchair Disposition: Home Past Medical History Past Medical History: Coronary Artery Disease (CAD), Chest Pain / Angina, COPD, CVA/TIA, Hyperlipidemia, Hypertension, Myocardial Infarction ([place]), Osteoarthritis (OA), Respiratory Disorder, Sleep Apnea/CPAP/BIPAP Additional Past Medical History / Comment(s): obesity, obesity hypoventilation syndrome, suspected CHF and cor pulmonale, previous history of defibrillator placement, CVA in 2004, chronic back pain secondary to DDD and spinal canal stenosis, history of vertebral fracture L2 through L5, chronic lower extremity edema, diverticular disease, L knee fx in past and torn R rotator cuff, cellulitis, recent hospitalization for gallbladder issues, states doesn't normally see high school band teacher, just visiting physician although saw one in hospital recently Last Myocardial Infarction Date:: 2011 History of Any Multi-Drug Resistant Organisms: None Reported Past Surgical History: Bowel Resection, Cholecystectomy, Heart Catheterization With Stent, Hernia Repair, Pacemaker Additional Past Surgical History / Comment(s): PTCA with stent (4 total), 04/05/13 [employer] pacemaker, 1989' umbilical hernia repair, colonoscopy, circumcision, R eye surgery for strabismus, gallbladder stents One removed from on 03/19, Colostomy with open wounds. Past Anesthesia/Blood Transfusion Reactions: No Reported Reaction Date of Last Stent Placement:: 2012 Type of Cardiac Device: Permanent Pacemaker Device Placement Date:: 04/05/13 Past Psychological History: No Psychological Hx Reported Smoking Status: Current every day smoker Past Alcohol Use History: None Reported Past Drug Use History: None Reported - Past Family History Father Family Medical History: Musculoskeletal Disorder, Neurologic Disorder Additional Family Medical History / Comment(s): Father had parkinson's dx and at age 84 yrs. Mother Family Medical History: Myocardial Infarction ([place]) Additional Family Medical History / Comment(s): Mother had 3 vessel CABG. She of a massive [place] at the age of 53 yrs. Medications and Allergies Home Medications Medication Instructions Recorded Confirmed Type Isosorbide Mononitrate ER [Imdur] 60 mg PO DAILY 04/25/17 02/07/23 History Metoprolol Succinate [Toprol XL] 50 mg PO DAILY 02/14/19 02/07/23 History Clopidogrel [Plavix] 75 mg PO DAILY 03/20/19 02/07/23 History Albuterol Inhaler [Ventolin Hfa 1 - 2 puff INHALATION RT-Q6H PRN 02/07/23 02/07/23 History Inhaler] Amoxic-Pot Clav 875-125Mg 1 tab PO Q12HR 02/07/23 02/07/23 History [Augmentin 875-125] Cyanocobalamin (Vitamin B-12) 1,000 mcg PO DAILY 02/07/23 02/07/23 History [Vitamin B-12] Folic Acid 0.4 mg PO DAILY 02/07/23 02/07/23 History Losartan [Cozaar] 50 mg PO HS 02/07/23 02/07/23 History Sennosides/Docusate Sodium [Senna 1 tab PO BID 02/07/23 02/07/23 History Plus 8.6-50 mg Tablet] oxyCODONE HCL/ACETAMINOPHEN 1 tab PO Q6HR PRN 02/07/23 02/07/23 History [Percocet 10-325 mg] Allergies Allergy/AdvReac Type Severity Reaction Status Date / Time No Known Allergies Allergy Verified 02/07/23 16:43 Plan - Discharge Summary Discharge Rx Participant: Yes New Discharge Prescriptions: New Nicotine 14Mg/24Hr Patch [Habitrol] 1 patch TRANSDERM DAILY #14 patch Nystatin 100,000Unit/gm Cream [Mycostatin Cream] 1 applic TOPICAL BID each Ipratropium-Albuterol Nebulize [Duoneb 0.5 mg-3 mg/3 ml Soln] 3 ml INHALATION TID #90 each predniSONE 10 mg PO DAILY #30 tab Budesonide/Formoterol Fumarate [Symbicort 80-4.5 Mcg Inhaler] 1 puff INHALATION BID #1 each Ciclopirox Olamine Cream [Ciclodan] 1 applic TOPICAL BID #15 gm Continue Isosorbide Mononitrate ER [Imdur] 60 mg PO DAILY Metoprolol Succinate [Toprol XL] 50 mg PO DAILY Clopidogrel [Plavix] 75 mg PO DAILY Losartan [Cozaar] 50 mg PO HS Folic Acid 0.4 mg PO DAILY Sennosides/Docusate Sodium [Senna Plus 8.6-50 mg Tablet] 1 tab PO BID Albuterol Inhaler [Ventolin Hfa Inhaler] 1 - 2 puff INHALATION RT-Q6H PRN PRN Reason: Shortness Of Breath oxyCODONE HCL/ACETAMINOPHEN [Percocet 10-325 mg] 1 tab PO Q6HR PRN PRN Reason: Pain Amoxic-Pot Clav 875-125Mg [Augmentin 875-125] 1 tab PO Q12HR Cyanocobalamin (Vitamin B-12) [Vitamin B-12] 1,000 mcg PO DAILY Discharge Medication List Isosorbide Mononitrate ER [Imdur] 60 mg PO DAILY 04/25/17 [History] Metoprolol Succinate [Toprol XL] 50 mg PO DAILY 02/14/19 [History] Clopidogrel [Plavix] 75 mg PO DAILY 03/20/19 [History] Albuterol Inhaler [Ventolin Hfa Inhaler] 1 - 2 puff INHALATION RT-Q6H PRN 02/07/23 [History] Amoxic-Pot Clav 875-125Mg [Augmentin 875-125] 1 tab PO Q12HR 02/07/23 [History] Cyanocobalamin (Vitamin B-12) [Vitamin B-12] 1,000 mcg PO DAILY 02/07/23 [History] Folic Acid 0.4 mg PO DAILY 02/07/23 [History] Losartan [Cozaar] 50 mg PO HS 02/07/23 [History] Sennosides/Docusate Sodium [Senna Plus 8.6-50 mg Tablet] 1 tab PO BID 02/07/23 [History] oxyCODONE HCL/ACETAMINOPHEN [Percocet 10-325 mg] 1 tab PO Q6HR PRN 02/07/23 [His tory] Budesonide/Formoterol Fumarate [Symbicort 80-4.5 Mcg Inhaler] 1 puff INHALATION BID #1 each 02/09/23 [Rx] Ipratropium-Albuterol Nebulize [Duoneb 0.5 mg-3 mg/3 ml Soln] 3 ml INHALATION TID #90 each 02/09/23 [Rx] Nicotine 14Mg/24Hr Patch [Habitrol] 1 patch TRANSDERM DAILY #14 patch 02/09/23 [Rx] Nystatin 100,000Unit/gm Cream [Mycostatin Cream] 1 applic TOPICAL BID each 02/09/23 [Rx] predniSONE 10 mg PO DAILY #30 tab 02/09/23 [Rx] Ciclopirox Olamine Cream [Ciclodan] 1 applic TOPICAL BID #15 gm 02/10/23 [Rx] Follow up Appointment(s)/Referral(s): [place] Min MD [Primary Care Provider] - 1-2 days Juan Robbins MD [STAFF PHYSICIAN] - 03/11/23 8:30 am Patient Instructions/Handouts: COPD (Chronic Obstructive Pulmonary Disease) (DC) Activity/Diet/Wound Care/Special Instructions: [place]ae P: [phone] F: [phone] home fio2 copd
== END 2023-02-10 16:22 | disposition home or self-care (01) | DRG 206 ==
LOC: EC 11:12 → 6NMEDSUR 16:16 → OBSVTOIN 21:32
PROVIDERS: ADMIT Hospitalist; ATTEND Hospitalist
DX: E66.2 Morbid (severe) obesity with alveolar hypoventilation (principal); I50.32 Chronic diastolic (congestive) heart failure; Z68.43 Body mass index [BMI] 50.0-59.9, adult; J96.11 Chronic respiratory failure with hypoxia; J44.1 Chronic obstructive pulmonary disease with (acute) exacerbation; M84.48XA Pathological fracture, other site, initial encounter for fracture; J44.0 Chronic obstructive pulmonary disease with (acute) lower respiratory infection; E78.5 Hyperlipidemia, unspecified; I11.0 Hypertensive heart disease with heart failure; I25.10 Atherosclerotic heart disease of native coronary artery without angina pectoris; M19.90 Unspecified osteoarthritis, unspecified site; I25.5 Ischemic cardiomyopathy; I87.2 Venous insufficiency (chronic) (peripheral); J20.8 Acute bronchitis due to other specified organisms; M47.816 Spondylosis without myelopathy or radiculopathy, lumbar region; G89.29 Other chronic pain; Z95.810 Presence of automatic (implantable) cardiac defibrillator; G62.9 Polyneuropathy, unspecified; F17.210 Nicotine dependence, cigarettes, uncomplicated; I25.2 Old myocardial infarction; Z20.822 Contact with and (suspected) exposure to COVID-19; Z79.02 Long term (current) use of antithrombotics/antiplatelets; Z79.899 Other long term (current) drug therapy; Z79.82 Long term (current) use of aspirin; Z82.49 Family history of ischemic heart disease and other diseases of the circulatory system; Z86.73 Personal history of transient ischemic attack (TIA), and cerebral infarction without residual deficits; Z93.3 Colostomy status; Z95.5 Presence of coronary angioplasty implant and graft; Z99.81 Dependence on supplemental oxygen; Z59.00 Homelessness unspecified
CPT/HCPCS: 36415; 71046; 80053; 83605; 83735; 83880; 84145; 84484; 85025; 85610; 85730; 87040; 87636; 93005; 94640; 94760; 96374; 96376; 99285

== ENCOUNTER 2023-03-03 11:08 | Inpatient (IN) | payer MEDICARE ==
[2023-03-03] MEDS ORDERED: oxyCODONE-APAP 10-325MG 1 EACH TAB PO STA (12:02)
[2023-03-03 12:04] LABS: Basophils % (A) 0 %; Eosinophils # (A) 0.1 k/uL (0-0.7); Eosinophils % (A) 1 %; HCT 45.6 % (39.0-53.0); HGB 14.7 gm/dL (13.0-17.5); Hypochromasia Slight; Lymphocytes # (A) 1.2 k/uL (1.0-4.8); Lymphocytes % (A) 15 %; MCH 31.8 pg (25.0-35.0); MCHC 32.2 g/dL (31.0-37.0); MCV 98.9 fL (80.0-100.0); Mean Platelet Volume 8.5; Monocytes # (A) 0.3 k/uL (0-1.0); Monocytes % (A) 4 %; Neutrophils % (A) 79 %; Platelet Count 128 k/uL (150-450); RBC 4.61 m/uL (4.30-5.90); RDW 13.4 % (11.5-15.5); WBC 7.6 k/uL (3.8-10.6)
--- NOTE | 2023-03-03 12:05 | ED ---
SOB HPI - General Chief Complaint: Shortness of Breath Stated Complaint: YUMIKO Time Seen by Provider: 03/03/23 11:20 Source: patient Mode of arrival: ambulatory Limitations: no limitations - History of Present Illness Initial Comments: 67-year-old male with past nuchal history of CHF, COPD on home O2 who presents to the emergency department reporting shortness of breath. He states that he has been short of breath for the past 5 days. He normally wears 3 L of oxygen at home however this has not been sufficient for him. He does have a history of congestive heart failure. Not currently on any diuretics. Reports that he recently has had a 40 pound weight gain. He does have a history of COPD and does use his his nebulizers. States that they have not been helping his symptoms. He denies fevers, chills or cough. No chest pain. No other alleviating, precipitating or modifying factors - Related Data Home Medications Medication Instructions Recorded Confirmed Isosorbide Mononitrate ER [Imdur] 60 mg PO DAILY 04/25/17 03/03/23 Metoprolol Succinate [Toprol XL] 50 mg PO DAILY 02/14/19 03/03/23 Clopidogrel [Plavix] 75 mg PO DAILY 03/20/19 03/03/23 Albuterol Inhaler [Ventolin Hfa 1 - 2 puff INHALATION RT-Q6H PRN 02/07/23 03/03/23 Inhaler] Cyanocobalamin (Vitamin B-12) 1,000 mcg PO DAILY 02/07/23 03/03/23 [Vitamin B-12] Folic Acid 0.4 mg PO DAILY 02/07/23 03/03/23 Losartan [Cozaar] 50 mg PO HS 02/07/23 03/03/23 Sennosides/Docusate Sodium [Senna 1 tab PO BID 02/07/23 03/03/23 Plus 8.6-50 mg Tablet] oxyCODONE HCL/ACETAMINOPHEN 1 tab PO Q6HR PRN 02/07/23 03/03/23 [Percocet 10-325 mg] Budesonide/Formoterol Fumarate 1 puff INHALATION RT-BID 03/03/23 03/03/23 [Symbicort 80-4.5 Mcg Inhaler] Ipratropium-Albuterol Nebulize 3 ml INHALATION RT-TID 03/03/23 03/03/23 [Duoneb 0.5 mg-3 mg/3 ml Soln] Lactulose 20 gm PO DAILY PRN 03/03/23 03/03/23 guaiFENesin [Mucinex] 600 mg PO Q12H 03/03/23 03/03/23 predniSONE See Taper PO DIRECTED 03/03/23 03/03/23 Previous Rx's Medication Instructions Recorded Ciclopirox Olamine Cream [Ciclodan] 1 applic TOPICAL BID #15 gm 02/10/23 Allergies Allergy/AdvReac Type Severity Reaction Status Date / Time No Known Allergies Allergy Verified 03/03/23 13:49 Review of Systems ROS Statement: Those systems with pertinent positive or pertinent negative responses have been documented in the HPI. ROS Other: All systems not noted in ROS Statement are negative. Past Medical History Past Medical History: Coronary Artery Disease (CAD), Chest Pain / Angina, COPD, CVA/TIA, Hyperlipidemia, Hypertension, Myocardial Infarction (MO), Osteoarthritis (OA), Respiratory Disorder, Sleep Apnea/CPAP/BIPAP Additional Past Medical History / Comment(s): obesity, obesity hypoventilation syndrome, suspected CHF and cor pulmonale, previous history of defibrillator placement, CVA in 2004, chronic back pain secondary to DDD and spinal canal stenosis, history of vertebral fracture L2 through L5, chronic lower extremity edema, diverticular disease, L knee fx in past and torn R rotator cuff, cellulitis, hospitalization for gallbladder complications Last Myocardial Infarction Date:: 2011 History of Any Multi-Drug Resistant Organisms: None Reported Past Surgical History: Bowel Resection, Cholecystectomy, Heart Catheterization With Stent, Hernia Repair, Pacemaker Additional Past Surgical History / Comment(s): PTCA with stent (4 total), 04/05/13 [employer] pacemaker, umbilical hernia repair, colonoscopy, circumcision, R eye surgery for strabismus, gallbladder stents One removed from HF on 03/19, Colostomy with open wounds. Past Anesthesia/Blood Transfusion Reactions: No Reported Reaction Date of Last Stent Placement:: 2012 Type of Cardiac Device: Permanent Pacemaker Device Placement Date:: 04/05/13 Past Psychological History: No Psychological Hx Reported Smoking Status: Current every day smoker Past Alcohol Use History: None Reported Past Drug Use History: None Reported - Past Family History Father Family Medical History: Musculoskeletal Disorder, Neurologic Disorder Additional Family Medical History / Comment(s): Father had parkinson's dx and at age 84 yrs. Mother Family Medical History: Myocardial Infarction (MO) Additional Family Medical History / Comment(s): Mother had 3 vessel CABG. She of a massive MO at the age of 53 yrs. General Exam Limitations: no limitations General appearance: alert, in no apparent distress Head exam: Present: atraumatic, normocephalic, normal inspection Eye exam: Present: normal appearance, PERRL, EOMI. Absent: scleral icterus, conjunctival injection, periorbital swelling ENT exam: Present: normal exam, mucous membranes moist Neck exam: Present: normal inspection. Absent: tenderness, meningismus, lymphadenopathy Respiratory exam: Present: rales, accessory muscle use, other (Tachypnea). Absent: respiratory distress, wheezes, rhonchi, stridor Cardiovascular Exam: Present: regular rate, normal rhythm, normal heart sounds. Absent: systolic murmur, diastolic murmur, rubs, gallop, clicks GI/Abdominal exam: Present: soft, normal bowel sounds. Absent: distended, t enderness, guarding, rebound, rigid Extremities exam: Present: full ROM, normal capillary refill, pedal edema (Significant brawny edema of the lower extremities). Absent: tenderness, joint swelling, calf tenderness Back exam: Present: normal inspection Neurological exam: Present: alert, oriented X3, CN II-XII intact Psychiatric exam: Present: normal affect, normal mood Skin exam: Present: warm, dry, intact, normal color. Absent: rash Course Vital Signs 03/03/23 03/03/23 03/03/23 11:18 12:38 14:15 Temperature 98.2 F 98.1 F Pulse Rate 60 60 60 Respiratory 16 18 18 Rate Blood Pressure 146/82 150/82 131/77 O2 Sat by Pulse 95 95 94 L Oximetry Medical Decision Making - Medical Decision Making Was pt. sent in by a medical professional or institution (, PA, ELECTRICAL ENGINEER MEP, urgent care, hospital, or longterm...) When possible be specific @ -No Did you speak to anyone other than the patient for history (EMS, parent, family, police, friend...)? What history was obtained from this source @ -Spoke with EMS Did you review nursing and triage notes (agree or disagree)? Why? @ -I reviewed and agree with nursing and triage notes Were old charts reviewed (outside hosp., previous admission, EMS record, old EKG, old radiological studies, urgent care reports/EKG's, longterm records)? Report findings @ -No old charts were reviewed Differential Diagnosis (chest pain, altered mental status, abdominal pain women, abdominal pain men, vaginal bleeding, weakness, fever, dyspnea, syncope, headache, dizziness, GI bleed, back pain, seizure, CVA, palpatations, mental health, musculoskeletal)? @ -Differential Dyspnea: Coronary syndrome, arrhythmia, tamponade, asthma, COPD, pulmonary embolism, pneumonia, pneumothorax, pulmonary effusion, anaphylaxis, diabetic ketoacidosis, flailed chest, pulmonary contusion, diaphragmatic rupture, anemia, neuromuscular, this is not meant to be an all-inclusive list. EKG interpreted by me (3pts min.). @ -Yes and demonstrates atrial paced rhythm with a rate of 60. TX interval 193. QRS 108. QTC of 379. Pacemaker captures properly. No acute ST segment elevations or depressions X-rays interpreted by me (1pt min.). @ -Yes and demonstrates some blurry vascular congestion CT interpreted by me (1pt min.). @ -None done U/S interpreted by me (1pt. min.). @ -None done What testing was considered but not performed or refused? (CT, X-rays, U/S, labs)? Why? @ -None What meds were considered but not given or refused? Why? @ -None Did you discuss the management of the patient with other professionals (professionals i.e. , PA, ELECTRICAL ENGINEER MEP, lab, RT, psych nurse, social media assistant, safety relief valve technician, teacher, aerospace engineer officer armament, telehealth case manager)? Give summary @ -Spoke with Dr. Coreas will admit the patient Was smoking cessation discussed for >3mins.? @ -No Was critical care preformed (if so, how long)? @ -No Were there social determinants of health that impacted care today? How? (Darius elessness, low income, unemployed, alcoholism, drug addiction, transportation, low edu. Level, literacy, decrease access to med. care, senior care, rehab)? @ -No Was there de-escalation of care discussed even if they declined (Discuss DNR or withdrawal of care, Hospice)? DNR status @ -No What co-morbidities impacted this encounter? (DM, HTN, Smoking, COPD, CAD, Cancer, CVA, ARF, Chemo, Hep., AIDS, mental health diagnosis, sleep apnea, morbid obesity)? @ -CHF, COPD, chronic respiratory insufficiency Was patient admitted / discharged? Hospital course, mention meds given and route, prescriptions, significant lab abnormalities, going to OR and other pertinent info. @ -Upon arrival patient is placed into room 24. Thorough history and physical exam is performed. IV is established and laboratory studies are conducted. Chest x-rays performed. Patient does have a low BNP however he is morbidly obese. Chest x-ray does demonstrate volume overload. I did give him at dose of Lasix. Breathing treatments are ordered. Recommended admission for to the patient was agreeable. Spoke with Dr. Coreas who agreed to admit the patient Undiagnosed new problem with uncertain prognosis? @ -No Drug Therapy requiring intensive monitoring for toxicity (Heparin, Nitro, Insulin, Cardizem)? @ -No Were any procedures done? @ -No Diagnosis/symptom? @ -Acute respiratory insufficiency on chronic respiratory failure, acute exa cerbation of CHF, acute exacerbation of COPD Acute, or Chronic, or Acute on Chronic? @ -Acute on chronic Uncomplicated (without systemic symptoms) or Complicated (systemic symptoms)? @ -Complicated Side effects of treatment? @ -No Exacerbation, Progression, or Severe Exacerbation? @ -Yes Poses a threat to life or bodily function? How? (Chest pain, USA, MO, pneumonia, PE, COPD, DKA, ARF, appy, cholecystitis, CVA, Diverticulitis, Homicidal, Suicidal, threat to staff... and all critical care pts) @ -No - Lab Data Result diagrams: 03/04/23 06:04 03/04/23 06:04 Lab Results 03/03/23 03/03/23 03/03/23 Range/Units 11:57 11:57 11:57 WBC 7.6 (3.8-10.6) k/uL RBC 4.61 (4.30-5.90) m/uL Hgb 14.7 (13.0-17.5) gm/dL Hct 45.6 (39.0-53.0) % MCV 98.9 (80.0-100.0) fL MCH 31.8 (25.0-35.0) pg MCHC 32.2 (31.0-37.0) g/dL RDW 13.4 (11.5-15.5) % Plt Count 128 L (150-450) k/uL MPV 8.5 Neutrophils % 79 % Lymphocytes % 15 % Monocytes % 4 % Eosinophils % 1 % Basophils % 0 % Neutrophils # 6.0 (1.3-7.7) k/uL Lymphocytes # 1.2 (1.0-4.8) k/uL Monocytes # 0.3 (0-1.0) k/uL Eosinophils # 0.1 (0-0.7) k/uL Basophils # 0.0 (0-0.2) k/uL Hypochromasia Slight PT 10.0 (9.0-12.0) sec INR 0.9 (<1.2) APTT 24.6 (22.0-30.0) sec Sodium 139 (137-145) mmol/L Potassium 4.9 (3.5-5.1) mmol/L Chloride 95 L (98-107) mmol/L Carbon Dioxide 38 H (22-30) mmol/L Anion Gap 6 mmol/L BUN 20 (9-20) mg/dL Creatinine 0.72 (0.66-1.25) mg/dL Est GFR (CKD-EPI)AfAm >90 (>60 ml/min/1.73 sqM) Est GFR (CKD-EPI)NonAf >90 (>60 ml/min/1.73 sqM) Glucose 106 H (74-99) mg/dL Plasma Lactic Acid Hernán (0.7-2.0) mmol/L Calcium 9.0 (8.4-10.2) mg/dL Total Bilirubin 0.6 (0.2-1.3) mg/dL AST 23 (17-59) U/L ALT 29 (4-49) U/L Alkaline Phosphatase 66 (38-126) U/L Troponin I (0.000-0.034) ng/mL NT-Pro-B Natriuret Pep 244 pg/mL Total Protein 5.9 L (6.3-8.2) g/dL Albumin 3.2 L (3.5-5.0) g/dL 03/03/23 03/03/23 Range/Units 11:57 11:57 WBC (3.8-10.6) k/uL RBC (4.30-5.90) m/uL Hgb (13.0-17.5) gm/dL Hct (39.0-53.0) % MCV (80.0-100.0) fL MCH (25.0-35.0) pg MCHC (31.0-37.0) g/dL RDW (11.5-15.5) % Plt Count (150-450) k/uL MPV Neutrophils % % Lymphocytes % % Monocytes % % Eosinophils % % Basophils % % Neutrophils # (1.3-7.7) k/uL Lymphocytes # (1.0-4.8) k/uL Monocytes # (0-1.0) k/uL Eosinophils # (0-0.7) k/uL Basophils # (0-0.2) k/uL Hypochromasia PT (9.0-12.0) sec INR (<1.2) APTT (22.0-30.0) sec Sodium (137-145) mmol/L Potassium (3.5-5.1) mmol/L Chloride (98-107) mmol/L Carbon Dioxide (22-30) mmol/L Anion Gap mmol/L BUN (9-20) mg/dL Creatinine (0.66-1.25) mg/dL Est GFR (CKD-EPI)AfAm (>60 ml/min/1.73 sqM) Est GFR (CKD-EPI)NonAf (>60 ml/min/1.73 sqM) Glucose (74-99) mg/dL Plasma Lactic Acid Hernán 1.1 (0.7-2.0) mmol/L Calcium (8.4-10.2) mg/dL Total Bilirubin (0.2-1.3) mg/dL AST (17-59) U/L ALT (4-49) U/L Alkaline Phosphatase (38-126) U/L Troponin I <0.012 (0.000-0.034) ng/mL NT-Pro-B Natriuret Pep pg/mL Total Protein (6.3-8.2) g/dL Albumin (3.5-5.0) g/dL Disposition Clinical Impression: Diastolic CHF, COPD exacerbation, Hypoxia Disposition: ADMITTED IP TO THIS HOSP Condition: Stable Is patient prescribed a controlled substance at d/c from ED?: No Time of Disposition: 13: Decision to Admit Reason: Admit from EC Decision Date: 03/03/23 Decision Time: 13:
[2023-03-03 12:15] LABS: ALT 29 U/L (4-49); AST 23 U/L (17-59); African American GFR (CKD) >90 (>60 ml/min/1.73 sqM); Albumin 3.2 g/dL (3.5-5.0); Alkaline Phosphatase 66 U/L (38-126); Blood Urea Nitrogen 20 mg/dL (9-20); Chloride 95 mmol/L (98-107); Glucose 106 mg/dL (74-99); Non-African American GFR(CKD) >90 (>60 ml/min/1.73 sqM); Potassium 4.9 mmol/L (3.5-5.1); Sodium 139 mmol/L (137-145); Total Bilirubin 0.6 mg/dL (0.2-1.3); Total Protein 5.9 g/dL (6.3-8.2)
[2023-03-03 12:22] LABS: Anion Gap 6 mmol/L
[2023-03-03 12:23] LABS: Carbon Dioxide 38 mmol/L (22-30)
[2023-03-03 12:24] LABS: NT-Pro-B-Type Natriuretic Pept 244 pg/mL
[2023-03-03 12:41] LABS: INR 0.9 (<1.2); Partial Thromboplastin Time 24.6 sec (22.0-30.0)
--- NOTE | 2023-03-03 12:41 | XR ---
EXAMINATION TYPE: XR chest 1V DATE OF EXAM: 03/03/2023 COMPARISON: 02/07/2023 HISTORY: Difficulty breathing TECHNIQUE: Single frontal view of the chest is obtained. FINDINGS: Elevated right hemidiaphragm with cardiomegaly and cardiac device. Arthropathy of the shou lders. No pneumothorax. Right apical pleural thickening. Hypertrophic and degenerative changes spine with findings suggestive of diffuse idiopathic skeletal hyperostosis. Mild coarsening of the central interstitium. IMPRESSION: 1. Elevated right hemidiaphragm with cardiomegaly. Correlate for mild central venous congestion..
[2023-03-03] MEDS ORDERED: FUROSEMIDE 10 MG/ML 4 ML VIAL IV STA (13:13)
[2023-03-03] MEDS ORDERED: methylPREDNISolone SOD SUCCI 125 MG/2 ML VIAL IV STA (13:13)
[2023-03-03] MEDS ORDERED: IPRATROPIUM-ALBUTEROL 3 ML NEB INHALATION STA (13:24)
[2023-03-03] MEDS ORDERED: NALOXONE 0.4 MG/ML 1 ML VIAL IV PRN (13:26)
[2023-03-03] MEDS ORDERED: IPRATROPIUM-ALBUTEROL 3 ML NEB INHALATION PRN (17:15)
--- NOTE | 2023-03-03 18:18 | P.HPIM ---
History of Present Illness H&P Date: 03/03/23 Chief Complaint: dyspnea 67 year old man with history of CAD s/p PCI, COPD with chronic respiratory failure requiring 3L NC, active smoker, NARCISO/OHS, chronic diastolic heart fa ilure, obesity class III presented for dyspnea. Pt says that he started to have increased work of breathing over the last couple days. He continues to smoke in the house, despite COPD and oxygen requirement, and noted that he had increased dyspnea prompting concerns that patient needed to be evaluated. He did report chills but denies fevers. Patient's subsequent and called emergency medical services brought him in by ambulance for further evaluation. Patient denies chest pain, palpitations, syncopal, presyncope, cough, abdominal pain, constipation, diarrhea, dysuria, dyschezia, numbness/weakness of extremities beyond baseline. In the emergency room, patient was afebrile, 151/76, heart rate 64, 98% on 3 L nasal cannula. CBC was remarkable for mild thrombus cytopenia to 128. Basic m etabolic panel showed chloride of 95, CO2 of 38. Liver function test showed albumin of 3.2. BNP was 244. Troponins less than 0.012. Coags were unremarkable. EKG shows atrial paced rhythm with appropriate axis, no evidence of ischemia. Chest x-ray shows cardiomegaly with mild pulmonary vascular congestion, AICD in place. Case was discussed at the emergency room about her incision was made to admit the patient to the hospital for further evaluation of dyspnea. All Systems reviewed and pertinent positives and negatives noted in HPI, all other symptoms are negative Gen: in no apparent distress, resting comfortably in bed Eyes: PERRL, no scleral injection or icterus HENT: normocephalic, atraumatic, good hearing acuity, moist mucous membranes Neck: no tracheal deviation, full range of motion Resp: good air exchange, breathing comfortably with no accessory muscle use, no tactile fremitus, diffuse wheezing, mild crackles in the bases CVS: good distal perfusion x 4, bilateral pitting edema with chronic venous stasis changes superimposed on lymphedema GI: soft, NTTP, ND, no hepatosplenomegaly : no suprapubic tenderness, no CVAT, wolff catheter not present MSK: no clubbing, no cyanosis, no noted contractures of extremities Skin: no noted rashes, petechiae; temperature of skin is appropriate Neuro: moving all extremities without signs of weakness, CN II-XII intact Psych: cooperative, euthymic mood, insight and judgment intact Labs and imaging as above Assessment/plan: COPD exacerbation Chronic hypoxemic respiratory failure NARCISO/OHS Chronic diastolic heart failure Obesity class III, BMI 55.6 Active nicotine abuse -Admit the patient to hospital with oxygen as needed -Duo nebs every 4 hours standing, and when necessary dosing as well, this was discussed with respiratory therapy -Add Symbicort, increased from 80-160 twice a day, this was discussed with respiratory therapy -Continue steroids, prednisone 40 mg daily -Start patient on 20 mg of by mouth Lasix daily -Discussed with respiratory therapy regarding initiation of BiPAP at night -Counseled patient extensively on tobacco cessation Patient is full code DVT prophylaxis with 7500 heparin 3 times a day Past Medical History Past Medical History: Coronary Artery Disease (CAD), Chest Pain / Angina, COPD, CVA/TIA, Hyperlipidemia, Hypertension, Myocardial Infarction (NM), O steoarthritis (OA), Respiratory Disorder, Sleep Apnea/CPAP/BIPAP Additional Past Medical History / Comment(s): obesity, obesity hypoventilation syndrome, suspected CHF and cor pulmonale, previous history of defibrillator placement, CVA in 2004, chronic back pain secondary to DDD and spinal canal stenosis, history of vertebral fracture L2 through L5, chronic lower extremity edema, diverticular disease, L knee fx in past and torn R rotator cuff, cellulitis, hospitalization for gallbladder complications Last Myocardial Infarction Date:: 2011 History of Any Multi-Drug Resistant Organisms: None Reported Past Surgical History: Bowel Resection, Cholecystectomy, Heart Catheterization With Stent, Hernia Repair, Pacemaker Additional Past Surgical History / Comment(s): PTCA with stent (4 total), 04/05/13 [employer] pacemaker, 1989' umbilical hernia repair, colonosc opy, circumcision, R eye surgery for strabismus, gallbladder stents One removed from on 03/19, Colostomy with open wounds. Past Anesthesia/Blood Transfusion Reactions: No Reported Reaction Date of Last Stent Placement:: 2012 Type of Cardiac Device: Permanent Pacemaker Device Placement Date:: 04/05/13 Past Psychological History: No Psychological Hx Reported Additional Psychological History / Comment(s): Pt is living in a homE Alone. He can drive. Has cane or walker PRN. Smoking Status: Current every day smoker Past Alcohol Use History: None Reported Additional Past Alcohol Use History / Comment(s): Pt states he started smoking around 1970 and smokes half a pack per day. Last smoking was this morning. Past Drug Use History: None Reported - Past Family History Father Family Medical History: Musculoskeletal Disorder, Neurologic Disorder Additional Family Medical History / Comment(s): Father had parkinson's dx and at age 84 yrs. Mother Family Medical History: Myocardial Infarction (NM) Additional Family Medical History / Comment(s): Mother had 3 vessel CABG. She of a massive NM at the age of 53 yrs. Medications and Allergies Home Medications Medication Instructions Recorded Confirmed Type RX: Isosorbide Mononitrate ER 60 mg PO DAILY 04/25/17 03/03/23 History [Imdur] RX: Metoprolol Succinate [Toprol 50 mg PO DAILY 02/14/19 03/03/23 History XL] RX: Clopidogrel [Plavix] 75 mg PO DAILY 03/20/19 03/03/23 History RX: Albuterol Inhaler [Ventolin 1 - 2 puff INHALATION RT-Q6H PRN 02/07/23 03/03/23 History Hfa Inhaler] RX: Cyanocobalamin (Vitamin B-12) 1,000 mcg PO DAILY 02/07/23 03/03/23 History [Vitamin B-12] RX: Folic Acid 0.4 mg PO DAILY 02/07/23 03/03/23 History RX: Losartan [Cozaar] 50 mg PO HS 02/07/23 03/03/23 History RX: Sennosides/Docusate Sodium 1 tab PO BID 02/07/23 03/03/23 History [Senna Plus 8.6-50 mg Tablet] RX: oxyCODONE HCL/ACETAMINOPHEN 1 tab PO Q6HR PRN 02/07/23 03/03/23 History [Percocet 10-325 mg] RX: Ciclopirox Olamine Cream 1 applic TOPICAL BID #15 gm 02/10/23 03/03/23 Rx [Ciclodan] Budesonide/Formoterol Fumarate 1 puff INHALATION RT-BID 03/03/23 03/03/23 History [Symbicort 80-4.5 Mcg Inhaler] RX: Ipratropium-Albuterol Nebulize 3 ml INHALATION RT-TID 03/03/23 03/03/23 History [Duoneb 0.5 mg-3 mg/3 ml Soln] RX: Lactulose 20 gm PO DAILY PRN 03/03/23 03/03/23 History RX: predniSONE See Taper PO DIRECTED 03/03/23 03/03/23 History guaiFENesin [Mucinex] 600 mg PO Q12H 03/03/23 03/03/23 History Allergies Allergy/AdvReac Type Severity Reaction Status Date / Time No Known Allergies Allergy Verified 03/03/23 13:49 Physical Exam Osteopathic Statement: *. No significant issues noted on an osteopathic structural exam other than those noted in the History and Physical/Consult. Vitals: Vital Signs Temp Pulse Pulse Resp BP BP Pulse Ox 03/03/23 17:14 03/03/23 16:16 64 03/03/23 16:05 60 96 03/03/23 15:38 98.0 F 64 19 151/76 98 03/03/23 14:15 98.1 F 60 18 131/77 94 L 03/03/23 12:38 60 18 150/82 95 03/03/23 11:18 98.2 F 60 16 146/82 95 FiO2 03/03/23 17:14 35 03/03/23 16:16 03/03/23 16:05 03/03/23 15:38 03/03/23 14:15 03/03/23 12:38 03/03/23 11:18 Intake and Output 03/03/23 03/03/23 03/03/23 06:59 14:59 22:59 Output Total 1200 Balance -1200 Output: Urine 1200 Other: Weight 185.973 kg Results CBC & Chem 7: 03/03/23 11:57 03/03/23 11:57 Labs: Abnormal Lab Results - Last 24 Hours (Table) 03/03/23 03/03/23 Range/Units 11:57 11:57 Plt Count 128 L (150-450) k/uL Chloride 95 L (98-107) mmol/L Carbon Dioxide 38 H (22-30) mmol/L Glucose 106 H (74-99) mg/dL Total Protein 5.9 L (6.3-8.2) g/dL Albumin 3.2 L (3.5-5.0) g/dL Thrombosis Risk Factor Assmnt - Choose All That Apply Each Factor Represents 1 point: Obesity (BMI >25), Swollen legs (current) Each Risk Factor Represents 2 Points: Age 61-74 years Thrombosis Risk Factor Assessment Total Risk Factor Score: 4 Thrombosis Risk Factor Assessment Level: Moderate Risk
[2023-03-03] MEDS: SYMBICORT 160-4.5 MCG INHALER INHALATION SCH (20:33)
[2023-03-03] MEDS: IPRATROPIUM-ALBUTEROL 3 ML NEB INHALATION SCH (20:33)
[2023-03-03] MEDS: CLOTRIMAZOLE 1% CREAM 30 GM TUBE TOPICAL SCH (21:30)
[2023-03-03] MEDS: NYSTATIN 100,000 UNIT/GM POWD 15 GM TOPICAL SCH (21:30)
[2023-03-03] MEDS: LOSARTAN 50 MG TAB PO SCH (21:30)
[2023-03-03] MEDS: SENNOSIDES-DOCUSATE SODIUM 1 EACH TAB PO SCH (21:31)
[2023-03-03] MEDS: oxyCODONE-APAP 10-325MG 1 EACH TAB PO PRN (21:31)
[2023-03-03] MEDS: guaiFENesin 600 MG TABLET.ER PO SCH (21:32)
[2023-03-04] MEDS: HEPARIN SODIUM,PORCINE 5,000 UNIT/ML 1 ML VIAL SQ SCH ×3 (00:46→18:01)
[2023-03-04] MEDS: oxyCODONE-APAP 10-325MG 1 EACH TAB PO PRN ×3 (05:48→19:19)
[2023-03-04] MEDS: IPRATROPIUM-ALBUTEROL 3 ML NEB INHALATION SCH ×4 (07:50→19:34)
[2023-03-04] MEDS: SYMBICORT 160-4.5 MCG INHALER INHALATION SCH ×2 (07:50→19:34)
[2023-03-04] MEDS ORDERED: FUROSEMIDE 20 MG TAB PO SCH (09:00)
[2023-03-04 09:42] LABS: BUN/Creat Ratio 23.75 Ratio (12.00-20.00); Calcium 9.7 mg/dL (8.7-10.3); Carbon Dioxide 40.9 mmol/L (21.6-31.8); Chloride 98 mmol/L (96-109); Glucose 105 mg/dL (70-110); Potassium 4.9 mmol/L (3.5-5.5); Sodium 144 mmol/L (135-145)
[2023-03-04 09:54] LABS: Basophils # (A) 0.02 X 10*3/uL (0.00-0.10); Basophils % (A) 0.2 %; Eosinophils # (A) 0.01 X 10*3/uL (0.04-0.35); Eosinophils % (A) 0.1 %; HGB 14.9 d/dL (13.0-17.0); Lymphocytes # (A) 1.21 X 10*3/uL (0.90-5.00); MCH 30.8 pg (27.0-32.0); MCHC 30.4 d/dL (32.0-37.0); MCV 101.2 FL (80.0-97.0); Mean Platelet Volume 11.2 FL (9.5-12.2); Monocytes # (A) 0.74 X 10*3/uL (0.20-1.00); Monocytes % (A) 6.1 %; NRBC Per 100 WBC 0 X 10*3/uL (0.00-0.01); Neutrophils % (A) 82.9 %; Platelet Count 165 X 10*3/uL (140-440); RBC 4.84 X 10*6/uL (4.40-5.60); RDW 13.5 % (11.5-14.5); WBC 12.06 X 10*3/uL (4.50-10.00)
--- NOTE | 2023-03-04 09:58 | P.CRDCN ---
History of Present Illness Consult date: 03/04/23 Consult reason: congestive heart failure (Acute exacerbation) History of present illness: History of present illness: This is a 67-year-old male with previous history of coronary artery disease status post PCI. Patient states that he had his first stent done in [place] and he has had 2-3 stents done in [place]. He follows with a software engineer web applications out of [place] but he hasn't seen him in a while and does not recall his name. He is also status post AICD, history of CVA, hypertension, hyperlipidemia, bilateral lower extremity lymphedema, morbid obesity, colostomy, COPD, obstructive sleep apnea not using CPAP, chronic hypoxic respiratory failure on home O2 at 3 L nasal cannula, active tobacco use and dependence. We have been asked to evaluate the patient for acute exacerbation of CHF. EKG atrial paced rhythm Chest x-ray: Elevated right hemidiaphragm with cardiomegaly. Correlate for mild central venous congestion. WBC 7.6, hemoglobin 14.7, platelet count 128. Sodium 144, potassium 4.9, chloride 98, CO2 40.9, BUN 19 creatinine 0.8. Glucose 105. Troponin negative 1. ProBNP 244. Home cardiac medications: Plavix 75 mg daily, Imdur 60 mg daily, losartan 50 mg at bedtime, Toprol-XL 50 mg daily Echocardiogram 2019 revealed EF of 50-55%, moderate concentric left ventricular hypertrophy, valve is not well visualized. Review Of Systems: At the time of my evaluation: Constitutional: No fever, no chills. No weakness, fatigue or lethargy. EENT: No headache. No dizziness. Lungs: No shortness of breath, cough, no sputum production. No wheezing. Cardiovascular: No chest pain, no lower extremity edema. No palpitations. No paroxysmal nocturnal dyspnea. No orthopnea. No lightheadedness or dizziness. No syncopal episodes. Abdominal: No abdominal pain. No nausea, vomiting. No diarrhea. No constipation. No bloody or tarry stools. Genitourinary: No dysuria.. No urinary retention. Musculoskeletal: No myalgias. No muscle weakness, no frequent falls. No back pain. No neck pain. Integumentary: No wounds. No rash. No unusual bruising. Neurologic: No aphasia. No facial droop. No change in mentation. No head injury. No headache. Physical examination: Gen: This is a 67 year old morbidly obese male resting in recliner, feet are in a dependent position, appears to be in no acute distress. VS: reviewed HEENT: Head is atraumatic, normocephalic. Pupils equal, round. Sclerae is anicteric. NECK: Supple. No JVD. . LUNGS: Clear to auscultation. No wheezes or rhonchi. No intercostal retractions. HEART: Regular rate and rhythm. No murmur. ABDOMEN: Soft No tenderness. EXTREMITIES: + Lymphedema + pedal edema. No calf tenderness. NEUROLOGICAL: Patient is awake, alert and oriented x3. Assessment: Right-sided heart failure Acute on chronic COPD Chronic hypoxic respiratory failure History of coronary artery disease with previous stenting Status post AICD History of stroke Hypertension Hyperlipidemia Bilateral lower extremity lymphedema Obstructive sleep apnea and noncompliant with CPAP Tobacco use and dependence Morbid obesity PLan: Continue patient's home cardiac medications Discontinue oral Lasix and start IV Lasix 40 mg every 12 hours Monitor I&O, daily weights, electrolytes and renal function Obtain 2-D echocardiogram and Doppler study to assess cardiac structure and function Further recommendations to follow based upon clinical course Thank you kindly for this consultation. Nurse practitioner note has been reviewed, I agree with documented findings and plan of care. Patient was seen and examined. Past Medical History Past Medical History: Coronary Artery Disease (CAD), Chest Pain / Angina, COPD, CVA/TIA, Hyperlipidemia, Hypertension, Myocardial Infarction (CA), Osteoarthritis (OA), Respiratory Disorder, Sleep Apnea/CPAP/BIPAP Additional Past Medical History / Comment(s): obesity, obesity hypoventilation syndrome, suspected CHF and cor pulmonale, previous history of defibrillator placement, CVA in 2004, chronic back pain secondary to DDD and spinal canal stenosis, history of vertebral fracture L2 through L5, chronic lower extremity edema, diverticular disease, L knee fx in past and torn R rotator cuff, cellulitis, hospitalization for gallbladder complications Last Myocardial Infarction Date:: 2011 History of Any Multi-Drug Resistant Organisms: None Reported Past Surgical History: Bowel Resection, Cholecystectomy, Heart Catheterization With Stent, Hernia Repair, Pacemaker Additional Past Surgical History / Comment(s): PTCA with stent (4 total), 04/05/13 [employer] pacemaker, umbilical hernia repair, colonoscopy, circumcision, R eye surgery for strabismus, gallbladder stents One removed from HF on 03/19, Colostomy with open wounds. Past Anesthesia/Blood Transfusion Reactions: No Reported Reaction Date of Last Stent Placement:: 2012 Type of Cardiac Device: Permanent Pacemaker Device Placement Date:: 04/05/13 Past Psychological History: No Psychological Hx Reported Additional Psychological History / Comment(s): Pt is living in a homE Alone. He can drive. Has cane or walker PRN. Smoking Status: Current every day smoker Past Alcohol Use History: None Reported Additional Past Alcohol Use History / Comment(s): Pt states he started smoking a 1969 and smokes half a pack per day. Last smoking was this morning. Past Drug Use History: None Reported - Past Family History Father Family Medical History: Musculoskeletal Disorder, Neurologic Disorder Additional Family Medical History / Comment(s): Father had parkinson's dx and at age 84 yrs. Mother Family Medical History: Myocardial Infarction (CA) Additional Family Medical History / Comment(s): Mother had 3 vessel CABG. She of a massive CA at the age of 53 yrs. Medications and Allergies Home Medications Medication Instructions Recorded Confirmed Type Isosorbide Mononitrate ER [Imdur] 60 mg PO DAILY 04/25/17 03/03/23 History Metoprolol Succinate [Toprol XL] 50 mg PO DAILY 02/14/19 03/03/23 History Clopidogrel [Plavix] 75 mg PO DAILY 03/20/19 03/03/23 History Albuterol Inhaler [Ventolin Hfa 1 - 2 puff INHALATION RT-Q6H PRN 02/07/23 03/03/23 History Inhaler] Cyanocobalamin (Vitamin B-12) 1,000 mcg PO DAILY 02/07/23 03/03/23 History [Vitamin B-12] Folic Acid 0.4 mg PO DAILY 02/07/23 03/03/23 History Losartan [Cozaar] 50 mg PO HS 02/07/23 03/03/23 History Sennosides/Docusate Sodium [Senna 1 tab PO BID 02/07/23 03/03/23 History Plus 8.6-50 mg Tablet] oxyCODONE HCL/ACETAMINOPHEN 1 tab PO Q6HR PRN 02/07/23 03/03/23 History [Percocet 10-325 mg] Ciclopirox Olamine Cream [Ciclodan] 1 applic TOPICAL BID #15 gm 02/10/23 03/03/23 Rx Budesonide/Formoterol Fumarate 1 puff INHALATION RT-BID 03/03/23 03/03/23 History [Symbicort 80-4.5 Mcg Inhaler] Ipratropium-Albuterol Nebulize 3 ml INHALATION RT-TID 03/03/23 03/03/23 History [Duoneb 0.5 mg-3 mg/3 ml Soln] Lactulose 20 gm PO DAILY PRN 03/03/23 03/03/23 History guaiFENesin [Mucinex] 600 mg PO Q12H 03/03/23 03/03/23 History predniSONE See Taper PO DIRECTED 03/03/23 03/03/23 History Allergies Allergy/AdvReac Type Severity Reaction Status Date / Time No Known Allergies Allergy Verified 03/03/23 13:49 Physical Exam Vitals: Vital Signs Temp Pulse Pulse Resp BP BP BP 03/04/23 08:06 104 H 03/04/23 07:50 104 H 03/04/23 00:07 97.9 F 64 18 149/74 03/03/23 20:49 76 03/03/23 20:33 80 03/03/23 20:19 98.1 F 62 20 143/78 03/03/23 17:14 03/03/23 16:16 64 03/03/23 16:05 60 03/03/23 15:38 98.0 F 64 19 151/76 03/03/23 14:15 98.1 F 60 18 131/77 03/03/23 12:38 60 18 150/82 03/03/23 11:18 98.2 F 60 16 146/82 Pulse Ox FiO2 03/04/23 08:06 03/04/23 07:50 03/04/23 00:07 96 03/03/23 20:49 03/03/23 20:33 03/03/23 20:19 03/03/23 17:14 35 03/03/23 16:16 03/03/23 16:05 96 03/03/23 15:38 98 03/03/23 14:15 94 L 03/03/23 12:38 95 03/03/23 11:18 95 Intake and Output 03/03/23 03/04/23 03/04/23 22:59 06:59 14:59 Output Total 2400 600 Balance -2400 -600 Output: Urine 2400 600 Other: Voiding Method External Catheter Results 03/03/23 11:57 03/03/23 11:57 Cardiac Enzymes 03/03/23 03/03/23 Range/Units 11:57 11:57 AST 23 (17-59) U/L Troponin I <0.012 (0.000-0.034) ng/mL Coagulation 03/03/23 Range/Units 11:57 PT 10.0 (9.0-12.0) sec APTT 24.6 (22.0-30.0) sec CBC 03/03/23 Range/Units 11:57 WBC 7.6 (3.8-10.6) k/uL RBC 4.61 (4.30-5.90) m/uL Hgb 14.7 (13.0-17.5) gm/dL Hct 45.6 (39.0-53.0) % Plt Count 128 L (150-450) k/uL Comprehensive Metabolic Panel 03/03/23 Range/Units 11:57 Sodium 139 (137-145) mmol/L Potassium 4.9 (3.5-5.1) mmol/L Chloride 95 L (98-107) mmol/L Carbon Dioxide 38 H (22-30) mmol/L BUN 20 (9-20) mg/dL Creatinine 0.72 (0.66-1.25) mg/dL Glucose 106 H (74-99) mg/dL Calcium 9.0 (8.4-10.2) mg/dL AST 23 (17-59) U/L ALT 29 (4-49) U/L Alkaline Phosphatase 66 (38-126) U/L Total Protein 5.9 L (6.3-8.2) g/dL Albumin 3.2 L (3.5-5.0) g/dL Current Medications Generic Name Dose Route Start Last Admin Trade Name Freq PRN Reason Stop Dose Admin Albuterol/Ipratropium 3 ml 03/03/23 20:00 03/04/23 07:50 Ipratropium-Albuterol 3 Ml Neb INHALATION 3 ml RT-QID KARINA Administration Albuterol/Ipratropium 3 ml 03/03/23 17:15 Ipratropium-Albuterol 3 Ml Neb INHALATION RT-Q2H PRN Shortness Of Breath Or Wheezing Budesonide/Formoterol Fumarate 2 puff 03/03/23 20:00 03/04/23 07:50 Symbicort 160-4.5 Mcg Inhaler INHALATION 2 puff RT-BID KARINA Administration Clopidogrel Bisulfate 75 mg 03/04/23 09:00 Clopidogrel 75 Mg Tab PO DAILY [facility] Clotrimazole 1 applic 03/03/23 21:00 03/03/23 21:30 Clotrimazole 1% Cream 30 Gm Tube TOPICAL 1 applic BID KARINA Administration Cyanocobalamin 1,000 mcg 03/04/23 09:00 Cyanocobalamin 500 Mcg Tab PO DAILY [facility] Folic Acid 1 mg 03/04/23 09:00 Folic Acid 1 Mg Tab PO DAILY [facility] Furosemide 40 mg 03/04/23 09:00 Furosemide 10 Mg/Ml 4 Ml Vial IV Q12HR [facility] Guaifenesin 600 mg 03/03/23 21:00 03/03/23 21:32 Guaifenesin 600 Mg Tablet.Er PO 600 mg Q12HR KARINA Administration Heparin Sodium (Porcine) 7,500 unit 03/04/23 00:00 03/04/23 00:46 Heparin Sodium,Porcine 5,000 Unit/Ml 1 Ml Vial SQ 7,500 unit Q8HR KARINA Administration Isosorbide Mononitrate 60 mg 03/04/23 09:00 Isosorbide Mononitrate Er 60 Mg Tab.Er.24h PO DAILY [facility] Losartan Potassium 50 mg 03/03/23 21:00 03/03/23 21:30 Losartan 50 Mg Tab PO 50 mg HS [facility] Administration Metoprolol Succinate 50 mg 03/04/23 09:00 Metoprolol Succinate (Er) 50 Mg Tab.Er.24h PO DAILY [facility] Naloxone HCl 0.2 mg 03/03/23 13:26 Naloxone 0.4 Mg/Ml 1 Ml Vial IV Q2M PRN Opioid Reversal Nystatin 1 applic 03/03/23 21:00 03/03/23 21:30 Nystatin 100,000 Unit/Gm Powd 15 Gm TOPICAL 1 applic BID KARINA Administration Protocol Oxycodone/Acetaminophen 1 each 03/03/23 21:09 03/04/23 05:48 Oxycodone-Apap 10-325mg 1 Each Tab PO 1 each Q6HR PRN Administration Pain Prednisone 40 mg 03/04/23 09:00 Prednisone 20 Mg Tab PO DAILY KARINA Senna/Docusate Sodium 1 each 03/03/23 21:00 03/03/23 21:31 Sennosides-Docusate Sodium 1 Each Tab PO 1 each BID KARINA Administration Intake and Output 03/03/23 03/04/23 03/04/23 22:59 06:59 14:59 Output Total 2400 600 Balance -2400 -600 Output: Urine 2400 600 Other: Voiding Method External Catheter 03/03/23 11:57 03/03/23 11:57
[2023-03-04] MEDS: FUROSEMIDE 10 MG/ML 4 ML VIAL IV SCH ×2 (11:14→21:48)
[2023-03-04] MEDS: CLOPIDOGREL 75 MG TAB PO SCH (11:15)
[2023-03-04] MEDS: METOPROLOL SUCCINATE (ER) 50 MG TAB.ER.24H PO SCH (11:15)
[2023-03-04] MEDS: ISOSORBIDE MONONITRATE ER 60 MG TAB.ER.24H PO SCH (11:15)
[2023-03-04] MEDS: predniSONE 20 MG TAB PO SCH (11:15)
[2023-03-04] MEDS: SENNOSIDES-DOCUSATE SODIUM 1 EACH TAB PO SCH ×2 (11:15→21:48)
[2023-03-04] MEDS: guaiFENesin 600 MG TABLET.ER PO SCH ×2 (11:15→21:48)
[2023-03-04] MEDS: CYANOCOBALAMIN 500 MCG TAB PO SCH (11:15)
[2023-03-04] MEDS: FOLIC ACID 1 MG TAB PO SCH (11:15)
[2023-03-04] MEDS: CLOTRIMAZOLE 1% CREAM 30 GM TUBE TOPICAL SCH ×2 (11:16→21:50)
[2023-03-04] MEDS: NYSTATIN 100,000 UNIT/GM POWD 15 GM TOPICAL SCH ×2 (11:16→21:50)
--- NOTE | 2023-03-04 13:22 | P.PN ---
Subjective Progress Note Date: 03/04/23 No ne complaints. Breathing is improving. Pt declined BIPAP overnight. Gen: in no apparent distress, resting comfortably in bed Eyes: PERRL, no scleral injection or icterus HENT: normocephalic, atraumatic, good hearing acuity, moist mucous membranes Neck: no tracheal deviation, full range of motion Resp: good air exchange, breathing comfortably with no accessory muscle use, no tactile fremitus, diffuse wheezing, mild crackles in the bases CVS: good distal perfusion x 4, bilateral pitting edema with chronic venous stasis changes superimposed on lymphedema GI: soft, NTTP, ND, no hepatosplenomegaly : no suprapubic tenderness, no CVAT, wolff catheter not present MSK: no clubbing, no cyanosis, no noted contractures of extremities Skin: no noted rashes, petechiae; temperature of skin is appropriate Neuro: moving all extremities without signs of weakness, CN II-XII intact Psych: cooperative, euthymic mood, insight and judgment intact Hospital Course: 67 year old man with history of CAD s/p PCI, COPD with chronic respiratory failure requiring 3L NC, active smoker, NARCISO/OHS, chronic diastolic heart failure, obesity class III presented for dyspnea. In the emergency room, patient was afebrile, 151/76, heart rate 64, 98% on 3 L nasal cannula. CBC was remarkable for mild thrombus cytopenia to 128. Basic metabolic panel showed chloride of 95, CO2 of 38. Liver function test showed albumin of 3.2. BNP was 244. Troponins less than 0.012. Coags were unremarkable. EKG shows atrial paced rhythm with appropriate axis, no evidence of ischemia. Chest x-ray shows cardiomegaly with mild pulmonary vascular congestion, AICD in place. Case was discussed at the emergency room about her incision was made to admit the patient to the hospital for further evaluation of dyspnea. Assessment/plan: COPD exacerbation Chronic hypoxemic respiratory failure NARCISO/OHS Chronic diastolic heart failure Obesity class III, BMI 55.6 Active nicotine abuse -Admit the patient to hospital with oxygen as needed -Duo nebs every 4 hours standing, and when necessary dosing as well, this was discussed with respiratory therapy -Add Symbicort, increased from 80-160 twice a day, this was discussed with respi ratory therapy -Continue steroids, prednisone 40 mg daily -Start patient on 20 mg of by mouth Lasix daily, this was switchted to lasix 40mg IV BID by cardiology -Discussed with respiratory therapy regarding initiation of BiPAP at night -Counseled patient extensively on tobacco cessation Patient is full code DVT prophylaxis with 7500 heparin 3 times a day Objective - Vital Signs Vital signs: Vital Signs Temp 98.0 F 03/04/23 07:49 Pulse 96 03/04/23 11:35 Resp 17 03/04/23 07:49 BP 171/88 03/04/23 07:49 Pulse Ox 96 03/04/23 07:49 FiO2 35 03/03/23 17:14 Intake & Output 03/03/23 03/04/23 03/04/23 18:59 06:59 18:59 Output Total 1200 1800 Balance -1200 -1800 Weight 185.973 kg Output: Urine 1200 1800 Other: Voiding Method External Catheter - Labs CBC & Chem 7: 03/04/23 06:04 03/04/23 06:04 Labs: Abnormal Lab Results - Last 24 Hours (Table) 03/04/23 03/04/23 Range/Units 06:04 06:04 WBC 12.06 H (4.50-10.00) X 10*3/uL MCV 101.2 H (80.0-97.0) FL MCHC 30.4 L (32.0-37.0) d/dL Neutrophils # 10.00 H (1.80-7.70) X 10*3/uL Eosinophils # 0.01 L (0.04-0.35) X 10*3/uL Carbon Dioxide 40.9 H* (21.6-31.8) mmol/L BUN/Creatinine Ratio 23.75 H (12.00-20.00) Ratio
[2023-03-04] MEDS: LOSARTAN 50 MG TAB PO SCH (21:48)
[2023-03-04] MEDS: DICLOFENAC SODIUM GEL 100 GM TUBE TOPICAL PRN (21:49)
[2023-03-05] MEDS: HEPARIN SODIUM,PORCINE 5,000 UNIT/ML 1 ML VIAL SQ SCH ×3 (00:21→17:39)
[2023-03-05] MEDS: oxyCODONE-APAP 10-325MG 1 EACH TAB PO PRN ×4 (00:54→20:13)
[2023-03-05] MEDS: SYMBICORT 160-4.5 MCG INHALER INHALATION SCH ×2 (09:57→20:24)
[2023-03-05] MEDS: IPRATROPIUM-ALBUTEROL 3 ML NEB INHALATION SCH ×4 (09:57→20:24)
--- NOTE | 2023-03-05 10:17 | P.PN ---
Subjective Progress Note Date: 03/05/23 Principal diagnosis: Heart failure The patient is a pleasant 67-year-old gentleman with coronary artery disease and congestive heart failure as well as chronic hypoxic respiratory failure and COPD and history of AICD was admitted to the hospital with acute on chronic hypoxic respiratory failure secondary to COPD exacerbation and CHF exacerbation. He underwent an echo still pending. March 052022 The patient was seen and evaluated this morning he continues to be hypoxic. He continues to be in failure. He does have severe bilateral lower extremity edema which could be some of it is chronic with a chronic ischemic changes and I cannot exclude completely lymphedema. He is on Lasix IV at this point. Kidney function remains stable. The echo was pending. No pain in the chest. He stated that he is overall feeling better. Examination is remarkable for history sounds bilaterally and bilateral lower extremity edema and chronic skin changes Assessment Acute on chronic hypoxic respiratory failure Evidence of right heart failure CAD History of AICD Multiple comorbid conditions Plan Continue the current medical regimen Continue Lasix IV for now Continue monitor the kidney function and electrolytes Follow-up with the patient Objective - Vital Signs Vital signs: Vital Signs Temp 97.6 F 03/05/23 07:08 Pulse 85 03/05/23 09:57 Resp 18 03/05/23 07:08 BP 152/86 03/05/23 07:08 Pulse Ox 96 03/05/23 09:59 FiO2 35 03/03/23 17:14 Intake & Output 03/04/23 03/05/23 03/05/23 18:59 06:59 18:59 Output Total 2150 Balance -2150 Weight 178.7 kg Output: Urine 2150 Other: Voiding Method Incontinent Incontinent External Catheter External Catheter - Labs CBC & Chem 7: 03/04/23 06:04 03/04/23 06:04
[2023-03-05] MEDS: predniSONE 20 MG TAB PO SCH (10:20)
[2023-03-05] MEDS: SENNOSIDES-DOCUSATE SODIUM 1 EACH TAB PO SCH ×2 (10:22→20:13)
[2023-03-05] MEDS: CLOPIDOGREL 75 MG TAB PO SCH (10:22)
[2023-03-05] MEDS: ISOSORBIDE MONONITRATE ER 60 MG TAB.ER.24H PO SCH (10:22)
[2023-03-05] MEDS: METOPROLOL SUCCINATE (ER) 50 MG TAB.ER.24H PO SCH (10:22)
[2023-03-05] MEDS: CYANOCOBALAMIN 500 MCG TAB PO SCH (10:22)
[2023-03-05] MEDS: FOLIC ACID 1 MG TAB PO SCH (10:22)
[2023-03-05] MEDS: guaiFENesin 600 MG TABLET.ER PO SCH ×2 (10:23→20:13)
[2023-03-05] MEDS: FUROSEMIDE 10 MG/ML 4 ML VIAL IV SCH ×2 (10:23→20:14)
[2023-03-05] MEDS: CLOTRIMAZOLE 1% CREAM 30 GM TUBE TOPICAL SCH ×2 (10:23→20:18)
[2023-03-05] MEDS: NYSTATIN 100,000 UNIT/GM POWD 15 GM TOPICAL SCH (10:23)
--- NOTE | 2023-03-05 11:53 | P.PN ---
Subjective Progress Note Date: 03/05/23 No ne complaints. Breathing is improving. Pt declined BIPAP overnight. Gen: in no apparent distress, resting comfortably in bed Eyes: PERRL, no scleral injection or icterus HENT: normocephalic, atraumatic, good hearing acuity, moist mucous membranes Neck: no tracheal deviation, full range of motion Resp: good air exchange, breathing comfortably with no accessory muscle use, no tactile fremitus, diffuse wheezing, mild crackles in the bases CVS: good distal perfusion x 4, bilateral pitting edema with chronic venous stasis changes superimposed on lymphedema GI: soft, NTTP, ND, no hepatosplenomegaly : no suprapubic tenderness, no CVAT, wolff catheter not present MSK: no clubbing, no cyanosis, no noted contractures of extremities Skin: no noted rashes, petechiae; temperature of skin is appropriate Neuro: moving all extremities without signs of weakness, CN II-XII intact Psych: cooperative, euthymic mood, insight and judgment intact Hospital Course: 67 year old man with history of CAD s/p PCI, COPD with chronic respiratory failure requiring 3L NC, active smoker, NARCISO/OHS, chronic diastolic heart failure, obesity class III presented for dyspnea. In the emergency room, patient was afebrile, 151/76, heart rate 64, 98% on 3 L nasal cannula. CBC was remarkable for mild thrombus cytopenia to 128. Basic metabolic panel showed chloride of 95, CO2 of 38. Liver function test showed albumin of 3.2. BNP was 244. Troponins less than 0.012. Coags were unremarkable. EKG shows atrial paced rhythm with appropriate axis, no evidence of ischemia. Chest x-ray shows cardiomegaly with mild pulmonary vascular congestion, AICD in place. Case was discussed at the emergency room about her incision was made to admit the patient to the hospital for further evaluation of dyspnea. Assessment/plan: COPD exacerbation Chronic hypoxemic respiratory failure NARCISO/OHS Chronic diastolic heart failure Obesity class III, BMI 55.6 Active nicotine abuse -Admit the patient to hospital with oxygen as needed -Duo nebs every 4 hours standing, and when necessary dosing as well, this was discussed with respiratory therapy -Add Symbicort, increased from 80-160 twice a day, this was discussed with respi ratory therapy -Continue steroids, prednisone 40 mg daily -Start patient on 20 mg of by mouth Lasix daily, this was switchted to lasix 40mg IV BID by cardiology -Discussed with respiratory therapy regarding initiation of BiPAP at night -Counseled patient extensively on tobacco cessation Patient is full code DVT prophylaxis with 7500 heparin 3 times a day Objective - Vital Signs Vital signs: Vital Signs Temp 97.6 F 03/05/23 07:08 Pulse 88 03/05/23 10:08 Resp 18 03/05/23 07:08 BP 152/86 03/05/23 07:08 Pulse Ox 96 03/05/23 09:59 FiO2 35 03/03/23 17:14 Intake & Output 03/04/23 03/05/23 03/05/23 18:59 06:59 18:59 Output Total 2150 Balance -2150 Weight 178.7 kg Output: Urine 2150 Other: Voiding Method Incontinent Incontinent Incontinent External Catheter External Catheter External Catheter - Labs CBC & Chem 7: 03/04/23 06:04 03/04/23 06:04
[2023-03-05] MEDS: DICLOFENAC SODIUM GEL 100 GM TUBE TOPICAL PRN (13:41)
[2023-03-05] MEDS: LOSARTAN 50 MG TAB PO SCH (20:13)
[2023-03-06] MEDS: HEPARIN SODIUM,PORCINE 5,000 UNIT/ML 1 ML VIAL SQ SCH ×4 (00:12→23:55)
[2023-03-06] MEDS: NYSTATIN 100,000 UNIT/GM POWD 15 GM TOPICAL SCH ×3 (00:33→20:26)
[2023-03-06] MEDS: oxyCODONE-APAP 10-325MG 1 EACH TAB PO PRN ×4 (02:13→19:33)
[2023-03-06] MEDS: guaiFENesin 600 MG TABLET.ER PO SCH ×2 (08:00→20:26)
[2023-03-06] MEDS: FUROSEMIDE 10 MG/ML 4 ML VIAL IV SCH ×2 (08:00→20:26)
[2023-03-06] MEDS: CYANOCOBALAMIN 500 MCG TAB PO SCH (08:00)
[2023-03-06] MEDS: METOPROLOL SUCCINATE (ER) 50 MG TAB.ER.24H PO SCH (08:00)
[2023-03-06] MEDS: FOLIC ACID 1 MG TAB PO SCH (08:00)
[2023-03-06] MEDS: CLOPIDOGREL 75 MG TAB PO SCH (08:00)
[2023-03-06] MEDS: ISOSORBIDE MONONITRATE ER 60 MG TAB.ER.24H PO SCH (08:00)
[2023-03-06] MEDS: predniSONE 20 MG TAB PO SCH (08:00)
[2023-03-06] MEDS: SENNOSIDES-DOCUSATE SODIUM 1 EACH TAB PO SCH ×2 (08:00→20:26)
[2023-03-06] MEDS: IPRATROPIUM-ALBUTEROL 3 ML NEB INHALATION SCH ×4 (09:20→19:58)
[2023-03-06] MEDS: SYMBICORT 160-4.5 MCG INHALER INHALATION SCH ×2 (09:20→19:58)
--- NOTE | 2023-03-06 09:24 | P.PN ---
Subjective Progress Note Date: 03/06/23 Principal diagnosis: Heart failure The patient is a pleasant 67-year-old gentleman with coronary artery disease and congestive heart failure as well as chronic hypoxic respiratory failure and COPD and history of AICD was admitted to the hospital with acute on chronic hypoxic respiratory failure secondary to COPD exacerbation and CHF exacerbation. He underwent an echo still pending. March 052022 The patient was seen and evaluated this morning he continues to be hypoxic. He continues to be in failure. He does have severe bilateral lower extremity edema which could be some of it is chronic with a chronic ischemic changes and I cannot exclude completely lymphedema. He is on Lasix IV at this point. Kidney function remains stable. The echo was pending. No pain in the chest. He stated that he is overall feeling better. Examination is remarkable for history sounds bilaterally and bilateral lower extremity edema and chronic skin changes 03/06/2023 The patient was seen and evaluated this morning. He is feeling better. The shortness of breath is better. He still have bilateral lower extremity edema. He has been diuresing well. He continues to be on Lasix 40 mg IV twice a day which I would consider to continue at this point and monitor the kidney function and electrolytes. The examination is remarkable for bilateral lower extremity swelling. Dimi nished breathing sounds bilaterally. Also he does have severe chronic skin changes and possible component of lymphedema on exam Assessment Acute on chronic hypoxic respiratory failure Evidence of right heart failure Possible lymphedema CAD History of AICD Multiple comorbid conditions Plan Continue the current medical regimen Continue Lasix IV for now Continue monitor the kidney function and electrolytes Follow-up with the patient Objective - Vital Signs Vital signs: Vital Signs Temp 97.9 F 03/06/23 02:18 Pulse 60 03/06/23 02:18 Resp 20 03/06/23 02:18 BP 128/77 03/06/23 02:18 Pulse Ox 93 L 03/06/23 02:18 FiO2 35 03/03/23 17:14 Intake & Output 03/05/23 03/06/23 03/06/23 18:59 06:59 18:59 Output Total 1450 1000 Balance -1450 -1000 Weight 178.2 kg Output: Urine 1450 1000 Other: Voiding Method Incontinent Incontinent External Catheter External Catheter External Catheter - Labs CBC & Chem 7: 03/04/23 06:04 03/04/23 06:04
[2023-03-06] MEDS: CLOTRIMAZOLE 1% CREAM 30 GM TUBE TOPICAL SCH ×2 (10:34→20:27)
--- NOTE | 2023-03-06 11:29 | P.PN ---
Subjective Progress Note Date: 03/06/23 No ne complaints. Breathing is improved to baseline per patient. Cardiology note reviewed, they would like to continue IV diuretics. Pt declined BIPAP overnight again. Gen: in no apparent distress, resting comfortably in bed Eyes: PERRL, no scleral injection or icterus HENT: normocephalic, atraumatic, good hearing acuity, moist mucous membranes Neck: no tracheal deviation, full range of motion Resp: good air exchange, breathing comfortably with no accessory muscle use, no tactile fremitus, diffuse wheezing, mild crackles in the bases CVS: good distal perfusion x 4, bilateral pitting edema with chronic venous stasis changes superimposed on lymphedema GI: soft, NTTP, ND, no hepatosplenomegaly : no suprapubic tenderness, no CVAT, wolff catheter not present MSK: no clubbing, no cyanosis, no noted contractures of extremities Skin: no noted rashes, petechiae; temperature of skin is appropriate Neuro: moving all extremities without signs of weakness, CN II-XII intact Psych: cooperative, euthymic mood, insight and judgment intact Hospital Course: 67 year old man with history of CAD s/p PCI, COPD with chronic respiratory failure requiring 3L NC, active smoker, NARCISO/OHS, chronic diastolic heart failure, obesity class III presented for dyspnea. In the emergency room, patient was afebrile, 151/76, heart rate 64, 98% on 3 L nasal cannula. CBC was remarkable for mild thrombus cytopenia to 128. Basic metabolic panel showed chloride of 95, CO2 of 38. Liver function test showed albumin of 3.2. BNP was 244. Troponins less than 0.012. Coags were unremarkable. EKG shows atrial paced rhythm with appropriate axis, no evidence of ischemia. Chest x-ray shows cardiomegaly with mild pulmonary vascular congestion, AICD in place. Case was discussed at the emergency room about her incision was made to admit the patient to the hospital for further evaluation of dyspnea. Assessment/plan: COPD exacerbation Chronic hypoxemic respiratory failure NACRISO/OHS Chronic diastolic heart failure Obesity class III, BMI 55.6 Active nicotine abuse -Admit the patient to hospital with oxygen as needed -Duo nebs every 4 hours standing, and when necessary dosing as well, this was discussed with respiratory therapy -Add Symbicort, increased from 80-160 twice a day, this was discussed with respiratory therapy -Continue steroids, prednisone 40 mg daily -Start patient on 20 mg of by mouth Lasix daily, this was switchted to lasix 40mg IV BID by cardiology -Discussed with respiratory therapy regarding initiation of BiPAP at night -Counseled patient extensively on tobacco cessation, re-emphasized again on 03/06 Patient is full code DVT prophylaxis with 7500 heparin 3 times a day Objective - Vital Signs Vital signs: Vital Signs Temp 97.6 F 03/06/23 07:03 Pulse 64 03/06/23 09:28 Resp 17 03/06/23 07:03 BP 121/81 03/06/23 07:03 Pulse Ox 93 L 03/06/23 09:22 FiO2 35 03/03/23 17:14 Intake & Output 03/05/23 03/06/23 03/06/23 18:59 06:59 18:59 Output Total 1450 1000 600 Balance -1450 -1000 -600 Weight 178.2 kg Output: Urine 1450 1000 600 Other: Voiding Method Incontinent Incontinent External Catheter External Catheter External Catheter - Labs CBC & Chem 7: 03/04/23 06:04 03/04/23 06:04
[2023-03-06] MEDS: LOSARTAN 50 MG TAB PO SCH (20:26)
[2023-03-07] MEDS: oxyCODONE-APAP 10-325MG 1 EACH TAB PO PRN ×2 (01:25→08:52)
[2023-03-07 08:18] VITALS: BP 114/66; RESP 19; TEMP 97.3
[2023-03-07] MEDS: METOPROLOL SUCCINATE (ER) 50 MG TAB.ER.24H PO SCH (08:52)
[2023-03-07] MEDS: CYANOCOBALAMIN 500 MCG TAB PO SCH (08:52)
[2023-03-07] MEDS: SENNOSIDES-DOCUSATE SODIUM 1 EACH TAB PO SCH (08:52)
[2023-03-07] MEDS: FOLIC ACID 1 MG TAB PO SCH (08:53)
[2023-03-07] MEDS: ISOSORBIDE MONONITRATE ER 60 MG TAB.ER.24H PO SCH (08:53)
[2023-03-07] MEDS: FUROSEMIDE 10 MG/ML 4 ML VIAL IV SCH (08:53)
[2023-03-07] MEDS: guaiFENesin 600 MG TABLET.ER PO SCH (08:53)
[2023-03-07] MEDS: HEPARIN SODIUM,PORCINE 5,000 UNIT/ML 1 ML VIAL SQ SCH (08:53)
[2023-03-07] MEDS: predniSONE 20 MG TAB PO SCH (08:53)
[2023-03-07] MEDS: CLOPIDOGREL 75 MG TAB PO SCH (08:54)
[2023-03-07] MEDS: CLOTRIMAZOLE 1% CREAM 30 GM TUBE TOPICAL SCH (08:54)
[2023-03-07] MEDS: NYSTATIN 100,000 UNIT/GM POWD 15 GM TOPICAL SCH (08:55)
[2023-03-07] MEDS: SYMBICORT 160-4.5 MCG INHALER INHALATION SCH (09:30)
[2023-03-07] MEDS: IPRATROPIUM-ALBUTEROL 3 ML NEB INHALATION SCH ×2 (09:30→12:38)
[2023-03-07 09:48] VITALS: PULSE 82
[2023-03-07 10:42] LABS: African American GFR (CKD) >90 (>60 ml/min/1.73 sqM); Blood Urea Nitrogen 31 mg/dL (9-20); Calcium 9.2 mg/dL (8.4-10.2); Chloride 91 mmol/L (98-107); Glucose 160 mg/dL (74-99); Non-African American GFR(CKD) >90 (>60 ml/min/1.73 sqM); Potassium 3.9 mmol/L (3.5-5.1); Sodium 137 mmol/L (137-145)
[2023-03-07 10:48] LABS: Anion Gap 8 mmol/L
[2023-03-07 10:51] LABS: Carbon Dioxide 38 mmol/L (22-30)
--- NOTE | 2023-03-07 11:09 | P.PN ---
Subjective HISTORY OF PRESENT ILLNESS: The patient is a pleasant 67-year-old gentleman with coronary artery disease and congestive heart failure as well as chronic hypoxic respiratory failure and COPD and history of AICD was admitted to the hospital with acute on chronic hypoxic respiratory failure secondary to COPD exacerbation and CHF exacerbation. He underwent an echo still pending. March 052022 The patient was seen and evaluated this morning he continues to be hypoxic. He continues to be in failure. He does have severe bilateral lower extremity edema which could be some of it is chronic with a chronic ischemic changes and I cannot exclude completely lymphedema. He is on Lasix IV at this point. Kidney function remains stable. The echo was pending. No pain in the chest. He stated that he is overall feeling better. Examination is remarkable for history sounds bilaterally and bilateral lower extremity edema and chronic skin changes 03/06/2023 The patient was seen and evaluated this morning. He is feeling better. The shortness of breath is better. He still have bilateral lower extremity edema. He has been diuresing well. He continues to be on Lasix 40 mg IV twice a day which I would consider to continue at this point and monitor the kidney function and electrolytes. 03/07/2023 Patient examined this morning. Patient is sitting up in chair. He denies any chest pain or pressure. He denies any shortness of breath. He remains on IV Lasix. Vital signs are stable. PHYSICAL EXAM: VITAL SIGNS: Reviewed. GENERAL: Well-developed in no acute distress. NECK: Supple. No JVD or thyromegaly LUNGS: Respirations even and unlabored. Lungs essentially clear to auscultation bilaterally. HEART: Regular rate and rhythm. S1 and S2 heard. EXTREMITIES: Normal range of motion. No clubbing or cyanosis. Peripheral pulses intact. Chronic skin discoloration noted to bilateral lower extremities ASSESSMENT: Acute on chronic heart failure Coronary artery disease History of AICD implantation Hypertension Hyperlipidemia COPD Acute on chronic hypoxic respiratory failure PLAN: Continue current cardiac medications Discontinue IV Lasix Begin oral Lasix 40 mg twice a day Add Aldactone 25 mg daily Patient is stable for discharge home today from a cardiac standpoint We will sign off. Please reconsult if needed. Nurse practitioner note has been reviewed by physician. Signing provider agrees with the documented findings, assessment, and plan of care. Objective - Vital Signs Vital signs: Vital Signs Temp 97.3 F L 03/07/23 07:36 Pulse 82 03/07/23 09:42 Resp 19 03/07/23 07:36 BP 114/66 03/07/23 07:36 Pulse Ox 93 L 03/07/23 09:32 FiO2 35 03/03/23 17:14 Intake & Output 03/06/23 03/07/23 03/07/23 18:59 06:59 18:59 Output Total 1800 800 900 Balance -1800 -800 -900 Weight 178.2 kg Output: Urine 1800 800 900 Other: Voiding Method External Catheter External Catheter External Catheter - Labs CBC & Chem 7: 03/04/23 06:04 03/07/23 09:36 Labs: Abnormal Lab Results - Last 24 Hours (Table) 03/07/23 Range/Units 09:36 Chloride 91 L (98-107) mmol/L Carbon Dioxide 38 H (22-30) mmol/L BUN 31 H (9-20) mg/dL Glucose 160 H (74-99) mg/dL
[2023-03-07] MEDS ORDERED: SPIRONOLACTONE 25 MG TAB PO SCH (11:15)
[2023-03-07] MEDS ORDERED: FUROSEMIDE 40 MG TAB PO SCH (16:00)
--- NOTE | 2023-03-07 20:19 | P.DS ---
Providers Date of admission: 03/03/23 13:26 Expected date of discharge: 03/07/23 Attending physician: Stevo Winn Primary care physician: Boston Min [facility] Course: This is a 67-year-old patient of Dr. Min. Chronic stable medical conditions include coronary artery disease with stent, hypertension, hyperlipidemia, obstructive sleep apnea, colonic diverticulosis, arthritis, chronic lumbar pain at L2 to L5, recurrent fractures, AICD. Chronic hypoxic respiratory failure on 2 L oxygen at home, morbid obesity, obesity hypoventilation syndrome chronic congestive heart failure from diastolic dysfunction EF 50-55%. Colostomy bag. Admitted with COPD and CHF exacerbation. March 07: I assumed care of the patient today. Feeling much better. Sitting up in a chair. Lower extremity edema has gone down. Changed to oral Lasix per cardiology. Discussed with patient. Discharged on fluid restriction. Questions answered. Discussion and discharge planning more than 35 minutes Past medical history: COPD in an ex-smoker, CHF from diastolic 50-55%, obesity hypoventilation syndrome, coronary artery disease with stent, hyperlipidemia, hypertension, AICD, chronic low back pain L2 to L5 as chronic fractures, morbid obesity, home oxygen 2 L, and right rotator cuff Social history: Lives alone . Smokes about half a pack a day.. No alcohol. Physical examination: VITAL SIGNS: 97.3, 61, 19, 11/66, 95% on 2 L GENERAL: Up in a chair, breathing stable EYES: Pupils equal. Conjunctiva normal. HEENT: External appearance of nose and ears normal, oral cavity grossly normal. NECK: JVD unable to assess; masses not palpable. HEART: Heart sounds muffled, edema. LUNGS: Respiratory rate increased decreased breath sound. EXTREMITY: Area. of discoloration above the ankle both lower legs. Edema. ABDOMEN: Soft, nontender, colostomy bag , liver spleen not palpable. PSYCH: Alert and oriented x3; mood and affect normal. INVESTIGATIONS, reviewed in the clinical context: March 04: White count 12.0 hemoglobin 14.9 platelets 165 potassium 3.9 creatinine 0.81 Assessment and plan: -Acute COPD exacerbation in a current smoker, : Better Resume home inhalers -Chronic bilateral lower, venous insufficiency Manpreet wrap -Chronic nicotine dependence, cigarette smoker Nicotine patch - peripheral neuropathy -Colostomy bag -Acute on Chronic congestive heart failure from diastolic dysfunction EF 50-55% Lasix. Aldactone. Fluid restriction -Obesity hypoventilation syndrome -Coronary artery disease with stent Plavix. Toprol-XL -Hyperlipidemia -Essential hypertension Cozaar 50 mg daily at bedtime. Imdur ER 60 mg daily. Toprol-XL 50 mg day. -AICD -Chronic low back pain from L2 to L5 osteoarthritis with chronic fractures -Morbid obesity BMI 53.3 Weight loss measures -Chronic hypoxic respiratory failure , secondary to underlying COPD on 2 L oxygen at home -Chronic medical debility uses a motorized wheelchair Disposition: Home Patient Condition at Discharge: Stable Plan - Discharge Summary Discharge Rx Participant: No New Discharge Prescriptions: New Spironolactone [Aldactone] 25 mg PO DAILY #20 tab Nystatin 100,000 Unit/gm Powd [Mycostatin Powder] 1 applic TOPICAL BID each Furosemide [Lasix] 40 mg PO DAILY #30 tab Diclofenac Sodium Gel [Voltaren 1% Gel] 2 gm TOPICAL QID PRN gm PRN Reason: pain Continue Isosorbide Mononitrate ER [Imdur] 60 mg PO DAILY Metoprolol Succinate [Toprol XL] 50 mg PO DAILY Clopidogrel [Plavix] 75 mg PO DAILY Losartan [Cozaar] 50 mg PO HS Folic Acid 0.4 mg PO DAILY Sennosides/Docusate Sodium [Senna Plus 8.6-50 mg Tablet] 1 tab PO BID Ipratropium-Albuterol Nebulize [Duoneb 0.5 mg-3 mg/3 ml Soln] 3 ml INHALATION RT-TID predniSONE See Taper PO DIRECTED Lactulose 20 gm PO DAILY PRN PRN Reason: Constipation Albuterol Inhaler [Ventolin Hfa Inhaler] 1 - 2 puff INHALATION RT-Q6H PRN PRN Reason: Shortness Of Breath oxyCODONE HCL/ACETAMINOPHEN [Percocet 10-325 mg] 1 tab PO Q6HR PRN PRN Reason: Pain Cyanocobalamin (Vitamin B-12) [Vitamin B-12] 1,000 mcg PO DAILY Ciclopirox Olamine Cream [Ciclodan] 1 applic TOPICAL BID #15 gm Budesonide/Formoterol Fumarate [Symbicort 80-4.5 Mcg Inhaler] 1 puff INHALATION RT-BID guaiFENesin [Mucinex] 600 mg PO Q12H Discharge Medication List Isosorbide Mononitrate ER [Imdur] 60 mg PO DAILY 11/27/17 [History] Metoprolol Succinate [Toprol XL] 50 mg PO DAILY 02/14/19 [History] Clopidogrel [Plavix] 75 mg PO DAILY 03/20/19 [History] Albuterol Inhaler [Ventolin Hfa Inhaler] 1 - 2 puff INHALATION RT-Q6H PRN 02/07/23 [History] Cyanocobalamin (Vitamin B-12) [Vitamin B-12] 1,000 mcg PO DAILY 02/07/23 [History] Folic Acid 0.4 mg PO DAILY 02/07/23 [History] Losartan [Cozaar] 50 mg PO HS 02/07/23 [History] Sennosides/Docusate Sodium [Senna Plus 8.6-50 mg Tablet] 1 tab PO BID 02/07/23 [History] oxyCODONE HCL/ACETAMINOPHEN [Percocet 10-325 mg] 1 tab PO Q6HR PRN 02/07/23 [History] Ciclopirox Olamine Cream [Ciclodan] 1 applic TOPICAL BID #15 gm 02/10/23 [Rx] Budesonide/Formoterol Fumarate [Symbicort 80-4.5 Mcg Inhaler] 1 puff INHALATION RT-BID 03/03/23 [History] Ipratropium-Albuterol Nebulize [Duoneb 0.5 mg-3 mg/3 ml Soln] 3 ml INHALATION RT-TID 03/03/23 [History] Lactulose 20 gm PO DAILY PRN 03/03/23 [History] guaiFENesin [Mucinex] 600 mg PO Q12H 03/03/23 [History] predniSONE See Taper PO DIRECTED 03/03/23 [History] Diclofenac Sodium Gel [Voltaren 1% Gel] 2 gm TOPICAL QID PRN gm 03/07/23 [Rx] Furosemide [Lasix] 40 mg PO DAILY #30 tab 03/07/23 [Rx] Nystatin 100,000 Unit/gm Powd [Mycostatin Powder] 1 applic TOPICAL BID each 03/07/23 [Rx] Spironolactone [Aldactone] 25 mg PO DAILY #20 tab 03/07/23 [Rx] Follow up Appointment(s)/Referral(s): Stanislaw Gibson MD [STAFF PHYSICIAN] - 10 Days [facility] [NON-STAFF] - As Needed Boston Min MD [Primary Care Provider] - 1-2 days Patient Instructions/Handouts: Heart Failure (DC) Activity/Diet/Wound Care/Special Instructions: fluid restrict 1800 cc/day Discharge Disposition: HOME SELF-CARE
== END 2023-03-07 13:04 | disposition home or self-care (01) | DRG 291 ==
LOC: EC 11:08 → 4SSUR 13:26
PROVIDERS: ADMIT Hospitalist; ATTEND Hospitalist
DX: I11.0 Hypertensive heart disease with heart failure (principal); I50.33 Acute on chronic diastolic (congestive) heart failure; J96.21 Acute and chronic respiratory failure with hypoxia; J44.1 Chronic obstructive pulmonary disease with (acute) exacerbation; E66.2 Morbid (severe) obesity with alveolar hypoventilation; Z68.43 Body mass index [BMI] 50.0-59.9, adult; J44.0 Chronic obstructive pulmonary disease with (acute) lower respiratory infection; I25.10 Atherosclerotic heart disease of native coronary artery without angina pectoris; I50.82 Biventricular heart failure; Z95.5 Presence of coronary angioplasty implant and graft; F17.210 Nicotine dependence, cigarettes, uncomplicated; E78.5 Hyperlipidemia, unspecified; G89.29 Other chronic pain; Z95.810 Presence of automatic (implantable) cardiac defibrillator; K57.30 Diverticulosis of large intestine without perforation or abscess without bleeding; G62.9 Polyneuropathy, unspecified; I87.2 Venous insufficiency (chronic) (peripheral); Z71.6 Tobacco abuse counseling; I25.2 Old myocardial infarction; I89.0 Lymphedema, not elsewhere classified; M47.816 Spondylosis without myelopathy or radiculopathy, lumbar region; Z79.02 Long term (current) use of antithrombotics/antiplatelets; Z79.899 Other long term (current) drug therapy; Z79.51 Long term (current) use of inhaled steroids; Z86.73 Personal history of transient ischemic attack (TIA), and cerebral infarction without residual deficits; Z82.49 Family history of ischemic heart disease and other diseases of the circulatory system; Z91.199 Patient's noncompliance with other medical treatment and regimen due to unspecified reason; Z99.81 Dependence on supplemental oxygen; Z82.0 Family history of epilepsy and other diseases of the nervous system; Z90.49 Acquired absence of other specified parts of digestive tract; M51.36 Other intervertebral disc degeneration, lumbar region; M48.061 Spinal stenosis, lumbar region without neurogenic claudication; I87.8 Other specified disorders of veins
CPT/HCPCS: 36415; 71045; 80048; 80053; 83605; 83880; 84484; 85025; 85610; 85730; 93005; 94640; 94760; 96374; 96375; 99285

== ENCOUNTER 2023-03-23 09:57 | Inpatient (IN) | payer MEDICARE ==
[2023-03-23] MEDS ORDERED: IPRATROPIUM-ALBUTEROL 3 ML NEB INHALATION STA (10:23)
[2023-03-23] MEDS ORDERED: ASPIRIN 81 MG PO STA (10:23)
[2023-03-23] MEDS ORDERED: ONDANSETRON 4 MG/2 ML VIAL IVP STA (10:34)
[2023-03-23 10:43] LABS: Basophils % (A) 0 %; Eosinophils # (A) 0.1 k/uL (0-0.7); Eosinophils % (A) 2 %; HCT 45.1 % (39.0-53.0); HGB 14.9 gm/dL (13.0-17.5); Lymphocytes # (A) 1.9 k/uL (1.0-4.8); Lymphocytes % (A) 32 %; MCH 31.3 pg (25.0-35.0); MCV 94.8 fL (80.0-100.0); Mean Platelet Volume 7.8; Monocytes # (A) 0.3 k/uL (0-1.0); Monocytes % (A) 4 %; Neutrophils # (A) 3.7 k/uL (1.3-7.7); Neutrophils % (A) 60 %; Platelet Count 168 k/uL (150-450); RBC 4.76 m/uL (4.30-5.90); RDW 13.2 % (11.5-15.5); WBC 6.1 k/uL (3.8-10.6)
[2023-03-23 10:54] LABS: Partial Thromboplastin Time 26.1 sec (22.0-30.0); Prothrombin Time 10.5 sec (10.0-12.5)
[2023-03-23 11:15] LABS: ALT 25 U/L (4-49); AST 23 U/L (17-59); African American GFR (CKD) >90 (>60 ml/min/1.73 sqM); Albumin 3.8 g/dL (3.5-5.0); Alkaline Phosphatase 67 U/L (38-126); Anion Gap 6 mmol/L; Blood Urea Nitrogen 18 mg/dL (9-20); Calcium 9.5 mg/dL (8.4-10.2); Carbon Dioxide 40 mmol/L (22-30); Chloride 94 mmol/L (98-107); Glucose 94 mg/dL (74-99); Magnesium 1.7 mg/dL (1.6-2.3); Non-African American GFR(CKD) >90 (>60 ml/min/1.73 sqM); Potassium 3.9 mmol/L (3.5-5.1); Sodium 140 mmol/L (137-145); Total Bilirubin 0.6 mg/dL (0.2-1.3)
[2023-03-23 11:23] LABS: NT-Pro-B-Type Natriuretic Pept 167 pg/mL
--- NOTE | 2023-03-23 11:25 | XR ---
EXAMINATION TYPE: XR chest 2V DATE OF EXAM: 03/23/2023 COMPARISON: 03/03/2023 HISTORY: Shortness of breath TECHNIQUE: Frontal and lateral views of the chest are obtained. FINDINGS: Scattered senescent parenchymal changes noted. Hyperinflation compatible with COPD. No evidence for infiltrate. No evidence for atelectasis. Heart size is stable. Mediastinal structures are stable and grossly unremarkable. No evidence for hilar prominence. Degenerative changes dorsal spine. IMPRESSION: 1. No evidence for acute pulmonary disease.
[2023-03-23] MEDS ORDERED: NALOXONE 0.4 MG/ML 1 ML VIAL IV PRN (11:41)
[2023-03-23] MEDS ORDERED: ONDANSETRON 4 MG/2 ML VIAL IVP PRN (11:41)
--- NOTE | 2023-03-23 11:44 | ED ---
Chest Pain HPI - General Chief Complaint: Chest Pain Stated Complaint: chest pain-leg redness Time Seen by Provider: 03/23/23 10:06 Source: patient, RN notes reviewed, old records reviewed Mode of arrival: ambulatory Limitations: no limitations - History of Present Illness Initial Comments: Patient is a 67-year-old male who presents emergency Department complaining of CAD, COPD, angina, hypertension and presents emergency Department complaining chest pain. Also started on antibiotics for bilateral lower extremity erythema and concern for cellulitis. Patient also endorses some chronic venous vascular congestion. States her chest pain last night. Currently is asymptomatic. Endorses chronic dyspnea is chronically on 3 L nasal cannula. Denies any abdominal pain, nausea, vomiting. His chronic colostomy. Denies any fevers or chills. Has been on doxycycline. Presents for further evaluation of this time. States he has left-sided chest pressure with no significant radiation. No other symptoms at this time. - Related Data Home Medications Medication Instructions Recorded Confirmed Isosorbide Mononitrate ER [Imdur] 60 mg PO DAILY 04/25/17 03/23/23 Metoprolol Succinate [Toprol XL] 50 mg PO DAILY 02/14/19 03/23/23 Clopidogrel [Plavix] 75 mg PO DAILY 03/20/19 03/23/23 Albuterol Inhaler [Ventolin Hfa 1 - 2 puff INHALATION RT-Q6H PRN 02/07/23 03/23/23 Inhaler] Cyanocobalamin (Vitamin B-12) 1,000 mcg PO DAILY 02/07/23 03/23/23 [Vitamin B-12] Folic Acid 0.4 mg PO DAILY 02/07/23 03/23/23 Losartan [Cozaar] 50 mg PO HS 02/07/23 03/23/23 Sennosides/Docusate Sodium [Senna 1 tab PO BID 02/07/23 03/23/23 Plus 8.6-50 mg Tablet] oxyCODONE HCL/ACETAMINOPHEN 1 tab PO Q6HR PRN 02/07/23 03/23/23 [Percocet 10-325 mg] Budesonide/Formoterol Fumarate 1 puff INHALATION RT-BID 03/03/23 03/23/23 [Symbicort 80-4.5 Mcg Inhaler] Ipratropium-Albuterol Nebulize 3 ml INHALATION RT-TID 03/03/23 03/23/23 [Duoneb 0.5 mg-3 mg/3 ml Soln] Lactulose 20 gm PO DAILY PRN 03/03/23 03/23/23 Aspirin 325 mg PO DAILY 03/23/23 03/23/23 Cholecalciferol (Vitamin D3) 75 mcg PO DAILY 03/23/23 03/23/23 [Vitamin D3 (3000 Iu)] Doxycycline Hyclate 100 mg PO BID 03/23/23 03/23/23 Famotidine [Pepcid] 20 mg PO BID 03/23/23 03/23/23 SILVER sulfADIAZINE CREAM 1 applic TOPICAL DAILY 03/23/23 03/23/23 [Silvadene Cream] Previous Rx's Medication Instructions Recorded Diclofenac Sodium Gel [Voltaren 1% 2 gm TOPICAL QID PRN gm 03/07/23 Gel] Furosemide [Lasix] 40 mg PO DAILY #30 tab 03/07/23 Nystatin 100,000 Unit/gm Powd 1 applic TOPICAL BID each 03/07/23 [Mycostatin Powder] Spironolactone [Aldactone] 25 mg PO DAILY #20 tab 03/07/23 Allergies Allergy/AdvReac Type Severity Reaction Status Date / Time No Known Allergies Allergy Verified 03/23/23 11:42 Review of Systems ROS Statement: Those systems with pertinent positive or pertinent negative responses have been documented in the HPI. Review of Systems: CONST: Denies fever EYES: Denies blurry vision ENT: Denies nasal congestion C/V: Endorses chest pain that has since resolved RESP: Denies shortness of breath GI: Denies abdominal pain : Denies dysuria SKIN: Endorses leg redness. MSK: Denies joint pain. NEURO: Denies headache ROS Other: All systems not noted in ROS Statement are negative. EKG Findings - EKG Comments: EKG Findings:: 12-lead Electrocardiogram Interpretation Note. EKG was reviewed and interpreted by myself. 12-lead ECG performed at 10:15 is interpreted by me as revealing normal sinus rhythm at a rate of 64 beats per minute. [place] is normal. CT interval is 187 ms, QRS duration is 113 ms, QTc is 381 ms.. There were no ST or T wave abnormalities to suggest myocardial ischemia or injury. R wave progression across the precordium was satisfactory. By my interpretation this EKG is non-diagnostic for acute ischemia. - EKG Results: EKG: interpreted by AL Past Medical History Past Medical History: Coronary Artery Disease (CAD), Chest Pain / Angina, COPD, CVA/TIA, Hyperlipidemia, Hypertension, Myocardial Infarction ([place]), Osteoarthritis (OA), Respiratory Disorder, Sleep Apnea/CPAP/BIPAP Additional Past Medical History / Comment(s): obesity, obesity hypoventilation syndrome, suspected CHF and cor pulmonale, previous history of defibrillator placement, CVA in 2004, chronic back pain secondary to DDD and spinal canal stenosis, history of vertebral fracture L2 through L5, chronic lower extremity edema, diverticular disease, L knee fx in past and torn R rotator cuff, cellulitis, hospitalization for gallbladder complications Last Myocardial Infarction Date:: 2011 History of Any Multi-Drug Resistant Organisms: None Reported Past Surgical History: Bowel Resection, Cholecystectomy, Heart Catheterization With Stent, Hernia Repair, Pacemaker Additional Past Surgical History / Comment(s): PTCA with stent (4 total), 04/05/13 [employer] pacemaker, umbilical hernia repair, colonoscopy, circumcision, R eye surgery for strabismus, gallbladder stents One removed from on 03/19, Colostomy with open wounds. Past Anesthesia/Blood Transfusion Reactions: No Reported Reaction Date of Last Stent Placement:: 2012 Type of Cardiac Device: Permanent Pacemaker Device Placement Date:: 04/05/13 Past Psychological History: No Psychological Hx Reported Smoking Status: Current some day smoker Past Alcohol Use History: None Reported Past Drug Use History: None Reported - Past Family History Father Family Medical History: Musculoskeletal Disorder, Neurologic Disorder Additional Family Medical History / Comment(s): Father had parkinson's dx and at age 84 yrs. Mother Family Medical History: Myocardial Infarction ([place]) Additional Family Medical History / Comment(s): Mother had 3 vessel CABG. She of a massive [place] at the age of 53 yrs. General Exam - General Exam Comments Initial Comments: General: Appears in no acute distress. HEAD: Normal with no signs of head trauma. EYES: PERRLA, EOMI, conjunctiva normal, no discharge. ENT: Hearing grossly intact, normal oropharynx. RESPIRATORY: Clear breath sounds bilaterally. No wheezes, rales, or rhonchi. Adequate saturations on baseline 3 L nasal cannula. C/V: Regular rate and rhythm. S1 and S2 auscultated, peripheral pitting edema peripheral pulses 2+ and intact throughout ABD: Abd is soft, nontender, nondistended. Colostomy bag is draining adequately. EXT: Normal range of motion, no obvious deformity SKIN: Erythematous bilateral lower extremities with chronic skin changes likely from chronic peripheral vascular disease. NEURO: Alert and oriented 4. Limitations: no limitations Course Vital Signs 03/23/23 03/23/23 03/23/23 09:59 10:11 11:00 Temperature 98.7 F Pulse Rate 66 63 Respiratory 18 24 20 Rate Blood Pressure 128/75 O2 Sat by Pulse 94 L 97 Oximetry 03/23/23 03/23/23 03/23/23 11:30 11:56 12:00 Temperature Pulse Rate 61 64 65 Respiratory 27 H 21 Rate Blood Pressure O2 Sat by Pulse 98 Oximetry 03/23/23 03/23/23 12:04 12:30 Temperature Pulse Rate 62 64 Respiratory 18 Rate Blood Pressure 142/67 O2 Sat by Pulse 98 Oximetry Chest Pain MDM - MDM Was pt. sent in by a medical professional or institution (Dr. PA, OVERNIGHT BABYSITTER, urgent care, hospital, or [facility]...) When possible be specific @ -No Did you speak to anyone other than the patient for history (EMS, parent, family, police, friend...)? What history was obtained from this source @ -No Did you review nursing and triage notes (agree or disagree)? Why? @ -I reviewed and agree with nursing and triage notes Were old charts reviewed (outside hosp., previous admission, EMS record, old EKG, old radiological studies, urgent care reports/EKG's, [facility] records)? Report findings @ -Old charts reviewed. Differential Diagnosis (chest pain, altered mental status, abdominal pain women, abdominal pain men, vaginal bleeding, weakness, fever, dyspnea, syncope, headache, dizziness, GI bleed, back pain, seizure, CVA, palpatations, mental health, musculoskeletal)? @ -Differential Chest Pain: Stable Angina, Unstable Angina, STEMI, NSTEMI Aortic Dissection, Pneumothorax, Musculoskeletal, Esophageal Spasm GERD, Cholecystitis, Pancreatitis, Zoster, this is not meant to be an all-inclusive list. EKG interpreted by me (3pts min.). @ -As above X-rays interpreted by me (1pt min.). @ -Chest x-ray reveals no obvious acute cardio pulmonary process CT interpreted by me (1pt min.). @ -None done U/S interpreted by me (1pt. min.). @ -None done What testing was considered but not performed or refused? (CT, X-rays, U/S, labs)? Why? @ -None What meds were considered but not given or refused? Why? @ -None Did you discuss the management of the patient with other professionals (professionals i.e. DrBowen, PA, OVERNIGHT BABYSITTER, lab, RT, psych nurse, social work nurse, gerontological nurse practitioner, teacher, principal gifts officer, employment evaluator/case manager)? Give summary @ -Discussed with the admitting physician Dr. Winn who accepted the patient. Was smoking cessation discussed for >3mins.? @ -No Was critical care preformed (if so, how long)? @ -No Were there social determinants of health that impacted care today? How? (Homelessness, low income, unemployed, alcoholism, drug addiction, transportation, low edu. Level, literacy, decrease access to med. care, detention, rehab)? @ -No Was there de-escalation of care discussed even if they declined (Discuss DNR or withdrawal of care, Hospice)? DNR status @ -No What co-morbidities impacted this encounter? (DM, HTN, Smoking, COPD, CAD, Cancer, CVA, ARF, Chemo, Hep., AIDS, mental health diagnosis, sleep apnea, morbid obesity)? @ -None Was patient admitted / discharged? Hospital course, mention meds given and route, prescriptions, significant lab abnormalities, going to OR and other pertinent info. @ -Based on the patient's presentation and physical exam, I am concerned for cardiopulmonary etiology for his current symptoms. Currently is asymptomatic. We will obtain workup, EKG, chest x-ray. Patient also receive an aspirin as well as IV Zofran. He was in agreement this plan. We will resume his home antibiotics doxycycline for possible cellulitis on his lower extremities. He was in agreement this plan. Vital signs within acceptable limits. Remains asymptomatic. EKG shows no signs of ischemia. Chest x-ray unremarkable. Laboratory studies are also unremarkable including an undetectable troponin as well as a BNP within acceptable limits. Viral swabs within normal limits. Discussed results of the patient. Patient's heart score is moderate. Therefore we will admit for cardiac observation. He was in agreement this plan. Cardiology consulted. I spoke with the admitting physician who accepted the patient. Undiagnosed new problem with uncertain prognosis? @ -No Drug Therapy requiring intensive monitoring for toxicity (Heparin, Nitro, Insulin, Cardizem)? @ -No Were any procedures done? @ -No Diagnosis/symptom? @ -Chest pain, cellulitis Acute, or Chronic, or Acute on Chronic? @ -Acute Uncomplicated (without systemic symptoms) or Complicated (systemic symptoms)? @ -Complicated Side effects of treatment? @ -No Exacerbation, Progression, or Severe Exacerbation? @ -No Poses a threat to life or bodily function? How? (Chest pain, [place], CT, pneumonia, PE, COPD, DKA, ARF, appy, cholecystitis, CVA, Diverticulitis, Homicidal, Suicidal, threat to staff... and all critical care pts) @ -Possibly, yes Disposition Clinical Impression: Chest pain, Cellulitis Disposition: ADMITTED IP TO THIS HOSP Condition: Stable Is patient prescribed a controlled substance at d/c from ED?: No Time of Disposition: 11:29
[2023-03-23] MEDS ORDERED: DICLOFENAC SODIUM GEL 100 GM TUBE TOPICAL PRN (12:35)
[2023-03-23] MEDS ORDERED: CALCIUM CARBONATE 500 MG CHEWABLE PO PRN (12:39)
[2023-03-23] MEDS ORDERED: ALPRAZolam 0.25 MG TAB PO PRN (12:39)
[2023-03-23] MEDS ORDERED: MELATONIN 3 MG TABLET PO PRN (12:39)
[2023-03-23] MEDS ORDERED: DOXYCYCLINE 100 MG CAP PO SCH (12:45)
[2023-03-23] MEDS ORDERED: AMPICILLIN-SULBACTAM 1.5 GM in SODIUM CHLORIDE 0.9% 50 ML IVPB SCH ×2 (13:00→16:00)
[2023-03-23] MEDS: oxyCODONE-APAP 10-325MG 1 EACH TAB PO PRN ×2 (13:10→18:15)
[2023-03-23] MEDS ORDERED: HEPARIN SODIUM,PORCINE 5,000 UNIT/ML 1 ML VIAL SQ SCH (16:00)
[2023-03-23] MEDS: IPRATROPIUM-ALBUTEROL 3 ML NEB INHALATION SCH ×2 (16:08→20:28)
[2023-03-23] MEDS: NYSTATIN 100,000 UNIT/GM POWD 15 GM TOPICAL SCH ×2 (18:14→21:24)
--- NOTE | 2023-03-23 20:19 | P.HPIM ---
History of Present Illness H&P Date: 03/23/23 Chief Complaint: Leg pain, chest pain This is a 67-year-old patient of Dr. Min. Chronic stable medical conditions include coronary artery disease with stent, hypertension, hyperlipidemia, obstructive sleep apnea, colonic diverticulosis, arthritis, chronic lumbar pain at L2 to L5, recurrent fractures, AICD. Chronic hypoxic respiratory failure on 2 L oxygen at home, morbid obesity, obesity hypoventilation syndrome chronic congestive heart failure from diastolic dysfunction EF 50-55%. Colostomy bag. COPD Patient now presents with increasing burning sensation in both lower extremities. He thinks it to become more red): Proximal in the right. He has chronic lower extremity swelling and redness. And venous stasis. He also has developed some chest pain. No shortness of breath. No fever no chills. Review of systems: GEN.: Tired, EYES: None HEENT: None NECK: None RESPIRATORY: As above CARDIOVASCULAR: Edema GASTROINTESTINAL: None GENITOURINARY: None MUSCULOSKELETAL: Chronic joint pains LYMPHATICS: None HEMATOLOGICAL: None PSYCHIATRY: None NEUROLOGICAL: None Past medical history: COPD in an ex-smoker, CHF from diastolic 50-55%, obesity hypoventilation syndrome, coronary artery disease with stent, hyperlipidemia, hypertension, AICD, chronic low back pain L2 to L5 as chronic fractures, morbid obesity, home oxygen 2 L, and right rotator cuff Social history: Lives alone . Smokes about half a pack a day.. No alcohol. Physical examination: VITAL SIGNS: 98.7, 66, 18, 120/75, 94% on 4 L GENERAL: BMI 55.9, declining bed, slightly anxious EYES: Pupils equal. Conjunctiva normal. HEENT: External appearance of nose and ears normal, oral cavity grossly normal. NECK: JVD unable to assess; masses not palpable. HEART: Heart sounds muffled, edema. LUNGS: Respiratory rate increased, decreased breath sound. EXTREMITY: Area. of Redness above the ankle to below the knee. Edema. Chronic venous stasis changes. ABDOMEN: Soft, nontender, colostomy bag , liver spleen not palpable. PSYCH: Alert and oriented x3; mood and affect anxious NEUROLOGICAL: Cranial nerves grossly intact; no facial asymmetry, power and sensation grossly intact. LYMPHATICS: No lymph nodes palpable in the axilla and neck INVESTIGATIONS, reviewed in the clinical context: March 23: White count 6.1 hemoglobin 14.9 platelets 168 sodium 140 potassium 3.9 BUN 18 creatinine 0.74 Troponin I less than 0.0123 Procalcitonin 0.06 Chest x-ray film personally reviewed by me-normal sinus rhythm. Nonspecific T- wave changes. Chest x-ray film personally reviewed by me-some cardiomegaly. Questionable venous prominence Assessment and plan: -Possible acute bilateral lower extremity cellulitis predisposed by lower external edema and essentially venous insufficiency IV Unasyn. ID consulted. -COPD in a current smoker, Resume home inhalers -Chronic bilateral lower, venous insufficiency Manpreet wrap -Chronic nicotine dependence, cigarette smoker Nicotine patch - peripheral neuropathy -Colostomy bag -Chronic congestive heart failure from diastolic dysfunction EF 50-55% Lasix. Aldactone. Fluid restriction -Obesity hypoventilation syndrome -Coronary artery disease with stent Plavix. Toprol-XL -Hyperlipidemia -Essential hypertension Cozaar 50 mg daily at bedtime. Imdur ER 60 mg daily. Toprol-XL 50 mg day. -AICD -Chronic low back pain from L2 to L5 osteoarthritis with chronic fractures -Morbid obesity BMI 59.9 Weight loss measures -Chronic hypoxic respiratory failure , secondary to underlying COPD on 2 L oxygen at home -Chronic medical debility uses a motorized wheelchair IV Unasyn. Resume home medications. ID consulted. Discussed with patient. Past Medical History Past Medical History: Coronary Artery Disease (CAD), Chest Pain / Angina, COPD, CVA/TIA, Hyperlipidemia, Hypertension, Myocardial Infarction ([place]), Osteoarthritis (OA), Respiratory Disorder, Sleep Apnea/CPAP/BIPAP Additional Past Medical History / Comment(s): obesity, obesity hypoventilation syndrome, suspected CHF and cor pulmonale, previous history of defibrillator placement, CVA in 2004, chronic back pain secondary to DDD and spinal canal stenosis, history of vertebral fracture L2 through L5, chronic lower extremity edema, diverticular disease, L knee fx in past and torn R rotator cuff, cellulitis, hospitalization for gallbladder complications Last Myocardial Infarction Date:: 2011 History of Any Multi-Drug Resistant Organisms: None Reported Past Surgical History: Bowel Resection, Cholecystectomy, Heart Catheterization With Stent, Hernia Repair, Pacemaker Additional Past Surgical History / Comment(s): PTCA with stent (4 total), 04/05/13 [employer] pacemaker, 1989' umbilical hernia repair, colonoscopy, circumcision, R eye surgery for strabismus, gallbladder stents One removed from HF on 03/19, Colostomy with open wounds. Past Anesthesia/Blood Transfusion Reactions: No Reported Reaction Date of Last Stent Placement:: 2012 Type of Cardiac Device: Permanent Pacemaker Device Placement Date:: 04/05/13 Past Psychological History: No Psychological Hx Reported Smoking Status: Current some day smoker Past Alcohol Use History: None Reported Past Drug Use History: None Reported - Past Family History Father Family Medical History: Musculoskeletal Disorder, Neurologic Disorder Additional Family Medical History / Comment(s): Father had parkinson's dx and at age 84 yrs. Mother Family Medical History: Myocardial Infarction ([place]) Additional Family Medical History / Comment(s): Mother had 3 vessel CABG. She d ied of a massive [place] at the age of 53 yrs. Medications and Allergies Home Medications Medication Instructions Recorded Confirmed Type Isosorbide Mononitrate ER [Imdur] 60 mg PO DAILY 04/25/17 03/23/23 History Metoprolol Succinate [Toprol XL] 50 mg PO DAILY 02/14/19 03/23/23 History Clopidogrel [Plavix] 75 mg PO DAILY 03/20/19 03/23/23 History Albuterol Inhaler [Ventolin Hfa 1 - 2 puff INHALATION RT-Q6H PRN 02/07/23 03/23/23 History Inhaler] Cyanocobalamin (Vitamin B-12) 1,000 mcg PO DAILY 02/07/23 03/23/23 History [Vitamin B-12] Folic Acid 0.4 mg PO DAILY 02/07/23 03/23/23 History Losartan [Cozaar] 50 mg PO HS 02/07/23 03/23/23 History Sennosides/Docusate Sodium [Senna 1 tab PO BID 02/07/23 03/23/23 History Plus 8.6-50 mg Tablet] oxyCODONE HCL/ACETAMINOPHEN 1 tab PO Q6HR PRN 02/07/23 03/23/23 History [Percocet 10-325 mg] Budesonide/Formoterol Fumarate 1 puff INHALATION RT-BID 03/03/23 03/23/23 Histo ry [Symbicort 80-4.5 Mcg Inhaler] Ipratropium-Albuterol Nebulize 3 ml INHALATION RT-TID 03/03/23 03/23/23 History [Duoneb 0.5 mg-3 mg/3 ml Soln] Lactulose 20 gm PO DAILY PRN 03/03/23 03/23/23 History Diclofenac Sodium Gel [Voltaren 1% 2 gm TOPICAL QID PRN gm 03/07/23 03/23/23 Rx Gel] Furosemide [Lasix] 40 mg PO DAILY #30 tab 03/07/23 03/23/23 Rx Nystatin 100,000 Unit/gm Powd 1 applic TOPICAL BID each 03/07/23 03/23/23 Rx [Mycostatin Powder] Spironolactone [Aldactone] 25 mg PO DAILY #20 tab 03/07/23 03/23/23 Rx Aspirin 325 mg PO DAILY 03/23/23 03/23/23 History Cholecalciferol (Vitamin D3) 75 mcg PO DAILY 03/23/23 03/23/23 History [Vitamin D3 (3000 Iu)] Doxycycline Hyclate 100 mg PO BID 03/23/23 03/23/23 History Famotidine [Pepcid] 20 mg PO BID 03/23/23 03/23/23 History SILVER sulfADIAZINE CREAM 1 applic TOPICAL DAILY 03/23/23 03/23/23 History [Silvadene Cream] Allergies Allergy/AdvReac Type Severity Reaction Status Date / Time No Known Allergies Allergy Verified 03/23/23 11:42 Physical Exam Vitals: Vital Signs Temp Pulse Resp BP Pulse Ox 03/23/23 11:00 63 20 97 03/23/23 10:11 24 03/23/23 09:59 98.7 F 66 18 128/75 94 L Intake and Output 03/22/23 03/23/23 03/23/23 22:59 06:59 14:59 Other: Weight 186.88 kg Results CBC & Chem 7: 03/23/23 10:31 03/23/23 10:31 Labs: Abnormal Lab Results - Last 24 Hours (Table) 03/23/23 Range/Units 10:31 Chloride 94 L (98-107) mmol/L Carbon Dioxide 40 H (22-30) mmol/L
[2023-03-23] MEDS: SYMBICORT 80-4.5 MCG INHALER INHALATION SCH ×2 (20:28→20:41)
[2023-03-23] MEDS: ENOXAPARIN 40 MG/0.4 ML SYRINGE SQ SCH (21:23)
[2023-03-23] MEDS: FAMOTIDINE 20 MG TAB PO SCH (21:23)
[2023-03-23] MEDS: LOSARTAN 50 MG TAB PO SCH (21:23)
[2023-03-23] MEDS: SENNOSIDES-DOCUSATE SODIUM 1 EACH TAB PO SCH (21:23)
--- NOTE | 2023-03-23 22:34 | P.CONS ---
History of Present Illness - Reason for Consult Consult date: 03/23/23 Cellulitis lower extremity Requesting physician: Stevo Winn - Chief Complaint Increasing shortness with the lower extremity swelling x few days - History of Present Illness Patient is a 67-year-old male with a past medical history significant for hypertension hyperlipidemia CO coronary artery disease did have a previous history of lower extremity cellulitis patient is presenting to the ER for evaluation of chest pain also is complaining of feeling dizzy swelling and redness to bilateral lower extremity that apparently has been getting worse over the last few days patient has a history of any trauma did have diffuse swelling redness to bilateral lower extremity without any blister or open wound has been complaining of pain to the lower extremity be sharp moderate intensity without radiation patient denies any headache or URI symptoms some shortness of breath but no orthopnea or PND denies any cough no abdominal pain no diarrhea. Patient on presentation to the hospital was afebrile and no fever has been recorded subsequently patient did have normal white count kidney function was normal liver was in the normal influenza RSV and COVID testing was negative did have a chest x-ray no evidence for acute cardiopulmonary disease patient was started on Unasyn infectious disease was consulted for further management of antibiotic therapy Review of Systems Positive point and negatives has been mentioned in the HPI, complete review of systems was performed and all other systems are negative Past Medical History Past Medical History: Coronary Artery Disease (CAD), Chest Pain / Angina, COPD, CVA/TIA, Hyperlipidemia, Hypertension, Myocardial Infarction (CO), Osteoarthritis (OA), Respiratory Disorder, Sleep Apnea/CPAP/BIPAP Additional Past Medical History / Comment(s): obesity, obesity hypoventilation syndrome, suspected CHF and cor pulmonale, previous history of defibrillator placement, CVA in 2004, chronic back pain secondary to DDD and spinal canal stenosis, history of vertebral fracture L2 through L5, chronic lower extremity edema, diverticular disease, L knee fx in past and torn R rotator cuff, cellulitis, hospitalization for gallbladder complications Last Myocardial Infarction Date:: 2011 History of Any Multi-Drug Resistant Organisms: None Reported Past Surgical History: Bowel Resection, Cholecystectomy, Heart Catheterization With Stent, Hernia Repair, Pacemaker Additional Past Surgical History / Comment(s): PTCA with stent (4 total), 04/05/13 [employer] pacemaker, umbilical hernia repair, colonoscopy, circumcision, R eye surgery for strabismus, gallbladder stents One removed from HF on 03/19, Colostomy with open wounds. Past Anesthesia/Blood Transfusion Reactions: No Reported Reaction Date of Last Stent Placement:: 2012 Type of Cardiac Device: Permanent Pacemaker Device Placement Date:: 04/05/13 Past Psychological History: No Psychological Hx Reported Smoking Status: Current some day smoker Past Alcohol Use History: None Reported Past Drug Use History: None Reported - Past Family History Father Family Medical History: Musculoskeletal Disorder, Neurologic Disorder Additional Family Medical History / Comment(s): Father had parkinson's dx and at age 84 yrs. Mother Family Medical History: Myocardial Infarction (CO) Additional Family Medical History / Comment(s): Mother had 3 vessel CABG. She of a massive CO at the age of 53 yrs. Medications and Allergies Home Medications Medication Instructions Recorded Confirmed Type Isosorbide Mononitrate ER [Imdur] 60 mg PO DAILY 04/25/17 03/23/23 History Metoprolol Succinate [Toprol XL] 50 mg PO DAILY 02/14/19 03/23/23 History Clopidogrel [Plavix] 75 mg PO DAILY 03/20/19 03/23/23 History Albuterol Inhaler [Ventolin Hfa 1 - 2 puff INHALATION RT-Q6H PRN 02/07/23 03/23/23 History Inhaler] Cyanocobalamin (Vitamin B-12) 1,000 mcg PO DAILY 02/07/23 03/23/23 History [Vitamin B-12] Folic Acid 0.4 mg PO DAILY 02/07/23 03/23/23 History Losartan [Cozaar] 50 mg PO HS 02/07/23 03/23/23 History Sennosides/Docusate Sodium [Senna 1 tab PO BID 02/07/23 03/23/23 History Plus 8.6-50 mg Tablet] oxyCODONE HCL/ACETAMINOPHEN 1 tab PO Q6HR PRN 02/07/23 03/23/23 History [Percocet 10-325 mg] Budesonide/Formoterol Fumarate 1 puff INHALATION RT-BID 03/03/23 03/23/23 History [Symbicort 80-4.5 Mcg Inhaler] Ipratropium-Albuterol Nebulize 3 ml INHALATION RT-TID 03/03/23 03/23/23 History [Duoneb 0.5 mg-3 mg/3 ml Soln] Lactulose 20 gm PO DAILY PRN 03/03/23 03/23/23 History Diclofenac Sodium Gel [Voltaren 1% 2 gm TOPICAL QID PRN gm 03/07/23 03/23/23 Rx Gel] Spironolactone [Aldactone] 25 mg PO DAILY #20 tab 03/07/23 03/23/23 Rx Aspirin 325 mg PO DAILY 03/23/23 03/23/23 History Cholecalciferol (Vitamin D3) 75 mcg PO DAILY 03/23/23 03/23/23 History [Vitamin D3 (3000 Iu)] Doxycycline Hyclate 100 mg PO BID 03/23/23 03/23/23 History Famotidine [Pepcid] 20 mg PO BID 03/23/23 03/23/23 History SILVER sulfADIAZINE CREAM 1 applic TOPICAL DAILY 03/23/23 03/23/23 History [Silvadene Cream] Cephalexin [Keflex] 500 mg PO Q6HR 7 Days #30 cap 03/28/23 Rx Nystatin 100,000 Unit/gm Powd 1 gm TOPICAL BID #60 each 03/28/23 Rx [Mycostatin Powder] Psyllium Husk 100% [Metamucil 6 gm PO DAILY #30 packet 03/28/23 Rx Packet] Torsemide [Demadex] 20 mg PO DAILY #30 tab 03/28/23 Rx Allergies Allergy/AdvReac Type Severity Reaction Status Date / Time No Known Allergies Allergy Verified 03/23/23 11:42 Physical Exam Vitals: Vital Signs Temp Pulse Pulse Resp BP BP Pulse Ox 03/23/23 20:41 72 03/23/23 20:30 70 03/23/23 18:28 97.6 F 64 16 127/76 98 03/23/23 14:12 97.5 F L 61 16 128/72 99 03/23/23 13:30 67 22 134/67 03/23/23 13:00 66 19 142/67 03/23/23 12:30 64 18 142/67 98 03/23/23 12:04 62 03/23/23 12:00 65 21 03/23/23 11:56 64 03/23/23 11:30 61 27 H 98 03/23/23 11:00 63 20 97 03/23/23 10:11 24 03/23/23 09:59 98.7 F 66 18 128/75 94 L Intake and Output 03/23/23 03/23/23 03/23/23 06:59 14:59 22:59 Output Total 550 Balance -550 Output: Urine 550 Other: Weight 186.88 kg GENERAL DESCRIPTION: Elderly male lying in bed, no distress. No tachypnea or accessory muscle of respiration use. HEENT: Shows Pallor , no scleral icterus. Oral mucous membrane is dry. No pharyngeal erythema or thrush NECK: Trachea central, no thyromegaly. LUNGS: Unlabored breathing. Decreased breath sound at the bases HEART: S1, S2, regular rate and rhythm. No loud murmur ABDOMEN: Soft, no tenderness , guarding or rigidity, no organomegaly EXTREMITIES: Diffuse swelling to bilateral lower extremity with redness warm and tender to touch SKIN: No rash, no masses palpable. NEUROLOGICAL: The patient is awake, alert, oriented x3, mood and affect normal. Results CBC & Chem 7: 03/25/23 05:46 03/25/23 05:46 Labs: Abnormal Lab Results - Last 24 Hours (Table) 03/23/23 Range/Units 10:31 Chloride 94 L (98-107) mmol/L Carbon Dioxide 40 H (22-30) mmol/L Assessment and Plan (1) Bilateral lower leg cellulitis Current Visit: No Status: Acute Code(s): L03.116 - CELLULITIS OF LEFT LOWER LIMB; L03.115 - CELLULITIS OF RIGHT LOWER LIMB SNOMED Code(s): 853750867 Plan: 1patient with bilateral lower extremity cellulitis in this patient with diffuse swelling and redness likely streptococcal disease clinically doubt gram- negative or MRSA infection. 2we will discontinue Unasyn. 3start the patient on cefazolin 3 g every 8 hours. 4Ace wrap to both lower extremity from distal bilateral to below the knee discussed with the patient nurse. We will follow on clinical condition and cultures to further adjust medication if needed Thank you for this consultation we will follow the patient along with you Dictation was produced using [employer] software. please excuse any grammatical, word or spelling errors. Time with Patient: Greater than 30
[2023-03-24] MEDS: ceFAZolin 3 GM in SODIUM CHLORIDE 0.9% 100 ML IVPB SCH ×3 (00:15→16:15)
[2023-03-24] MEDS: oxyCODONE-APAP 10-325MG 1 EACH TAB PO PRN ×4 (00:22→21:00)
[2023-03-24] MEDS: IPRATROPIUM-ALBUTEROL 3 ML NEB INHALATION SCH ×3 (05:22→18:07)
[2023-03-24] MEDS: SYMBICORT 80-4.5 MCG INHALER INHALATION SCH ×4 (05:23→23:50)
[2023-03-24] MEDS ORDERED: FUROSEMIDE 10 MG/ML 4 ML VIAL IV STA (08:39)
[2023-03-24 08:55] LABS: Basophils # (A) 0.02 X 10*3/uL (0.00-0.10); Basophils % (A) 0.3 %; Eosinophils % (A) 1.7 %; HCT 42.7 % (39.6-50.0); HGB 13.3 d/dL (13.0-17.0); Lymphocytes # (A) 2.12 X 10*3/uL (0.90-5.00); Lymphocytes % (A) 36.2 %; MCH 30.3 pg (27.0-32.0); MCHC 31.1 d/dL (32.0-37.0); MCV 97.3 FL (80.0-97.0); Mean Platelet Volume 10.6 FL (9.5-12.2); Monocytes # (A) 0.49 X 10*3/uL (0.20-1.00); Monocytes % (A) 8.4 %; NRBC Per 100 WBC 0 X 10*3/uL (0.00-0.01); Neutrophils # (A) 3.11 X 10*3/uL (1.80-7.70); Neutrophils % (A) 53.1 %; Platelet Count 170 X 10*3/uL (140-440); RBC 4.39 X 10*6/uL (4.40-5.60); RDW 13.4 % (11.5-14.5); WBC 5.86 X 10*3/uL (4.50-10.00)
[2023-03-24] MEDS ORDERED: FUROSEMIDE 40 MG TAB PO SCH (09:00)
[2023-03-24 09:09] LABS: BUN/Creat Ratio 14.62 Ratio (12.00-20.00); Blood Urea Nitrogen 11.7 mg/dL (9.0-27.0); Calcium 9.3 mg/dL (8.7-10.3); Chloride 99 mmol/L (96-109); Glucose 94 mg/dL (70-110); Potassium 4.7 mmol/L (3.5-5.5); Sodium 142 mmol/L (135-145)
[2023-03-24] MEDS: METOPROLOL SUCCINATE (ER) 50 MG TAB.ER.24H PO SCH (09:09)
[2023-03-24] MEDS: ASPIRIN 325 MG TAB PO SCH (09:09)
[2023-03-24] MEDS: CLOPIDOGREL 75 MG TAB PO SCH (09:09)
[2023-03-24] MEDS: CHOLECALCIFEROL 25 MCG (1000 IU) TABLET PO SCH (09:09)
[2023-03-24] MEDS: ISOSORBIDE MONONITRATE ER 60 MG TAB.ER.24H PO SCH (09:09)
[2023-03-24] MEDS: ENOXAPARIN 40 MG/0.4 ML SYRINGE SQ SCH (09:09)
[2023-03-24] MEDS: SENNOSIDES-DOCUSATE SODIUM 1 EACH TAB PO SCH ×2 (09:09→21:00)
[2023-03-24] MEDS: FAMOTIDINE 20 MG TAB PO SCH ×2 (09:10→21:00)
[2023-03-24] MEDS: CYANOCOBALAMIN 500 MCG TAB PO SCH (09:10)
[2023-03-24] MEDS: SPIRONOLACTONE 25 MG TAB PO SCH (09:10)
[2023-03-24] MEDS: NYSTATIN 100,000 UNIT/GM POWD 15 GM TOPICAL SCH ×2 (09:11→21:01)
--- NOTE | 2023-03-24 10:14 | P.CRDCN ---
History of Present Illness History of present illness: HISTORY OF PRESENT ILLNESS: This is a 67 year old male with a past medical history significant for congestive heart failure, coronary artery disease with previous PCI, CVA, hypertension, hyperlipidemia, lymphedema, COPD, obstructive sleep apnea, chronic hypoxic respiratory failure on home oxygen, nicotine dependence. Patient follows with a media assistant out of [facility]. We have been asked to see the patient in consultation for chest pain. Patient examined at the bedside. Patient presented to the hospital with a chief complaint of discomfort in his lower e xtremities. The patient was started on doxycycline on an outpatient basis for her lateral lower extremity edema. He also reports having shortness of breath. The patient does not recall if he was having chest pain yesterday. At the time of examination, he denies chest pain or pressure. He has been evaluated by infectious disease and is started on IV antibiotics. * EKG reveals sinus mechanism with nonspecific ST-T wave changes * Chest xray negative for acute process * Current home cardiac medications include Plavix 75 mg daily, Imdur 60 mg daily, metoprolol succinate 50 mg daily, Lasix 40 mg daily, aspirin 325 mg daily, losartan 50 mg at night * Most recent echocardiogram obtained in September 2018 revealing ejection fraction 50-55% with moderate LVH REVIEW OF SYSTEMS: At the time of my exam: CONSTITUTIONAL: Denies fever or chills. HEENT: Denies blurred vision, vision changes, or eye pain. Denies hemoptysis CARDIOVASCULAR: Denies chest pain. Denies orthopnea. Denies PND. Denies palpitations RESPIRATORY: + shortness of breath. GASTROINTESTINAL: Denies abdominal pain. Denies nausea or vomiting. HEMATOLOGIC: Denies bleeding disorders. GENITOURINARY: Denies any blood in urine. SKIN: Denies pruitis. Denies rash. PHYSICAL EXAM: VITAL SIGNS: Reviewed. GENERAL: Well-developed in no acute distress. HEENT: Head is normocephalic. Pupils are equal, round. Sclerae anicteric. Mucous membranes of the mouth are moist. Neck supple. No JVD or thyromegaly LUNGS: Respirations even and unlabored. Lungs with expiratory wheezing noted HEART: Regular rate and rhythm. S1 and S2 heard. ABDOMEN: Soft. Nondistended. Nontender. EXTREMITIES: Normal range of motion. No clubbing or cyanosis. Peripheral pulses intact. Chronic skin discoloration noted with peripheral edema and erythema to bilateral lower extremities NEUROLOGIC: Awake and alert. Oriented x 3. ASSESSMENT: Chest pain, patient unsure if he was having chest pain yesterday, troponi negative x 3 Bilateral lower extremity cellulitis, on doxycycline outpatient Coronary artery disease with previous stenting, details unknown Acute COPD exacerbation Chronic hypoxic respiratory failure on home oxygen Chronic congestive heart failure with preserved ejection fraction, 50-55% in 2019 History of AICD implantation History of CVA Hypertension Hyperlipidemia Bilateral lower extremity lymphedema Obstructive sleep apnea, noncompliant with CPAP Nicotine dependence Morbid obesity PLAN: An acute coronary event has been ruled out Give 1 dose of IV Lasix 40 mg Begin Demadex 20 mg beginning tomorrow morning Continue antibiotics per infectious disease Obtain 2-D echo to assess cardiac structure and function Further recommendations pending patient's course Nurse practitioner note has been reviewed by physician. Signing provider agrees with the documented findings, assessment, and plan of care. Past Medical History Past Medical History: Coronary Artery Disease (CAD), Chest Pain / Angina, COPD, CVA/TIA, Hyperlipidemia, Hypertension, Myocardial Infarction (RI), Osteoar thritis (OA), Respiratory Disorder, Sleep Apnea/CPAP/BIPAP Additional Past Medical History / Comment(s): obesity, obesity hypoventilation syndrome, suspected CHF and cor pulmonale, previous history of defibrillator placement, CVA in 2004, chronic back pain secondary to DDD and spinal canal stenosis, history of vertebral fracture L2 through L5, chronic lower extremity edema, diverticular disease, L knee fx in past and torn R rotator cuff, cellulitis, hospitalization for gallbladder complications Last Myocardial Infarction Date:: 2011 History of Any Multi-Drug Resistant Organisms: None Reported Past Surgical History: Bowel Resection, Cholecystectomy, Heart Catheterization With Stent, Hernia Repair, Pacemaker Additional Past Surgical History / Comment(s): PTCA with stent (4 total), 04/05/13 [employer] pacemaker, 1989' umbilical hernia repair, colonoscopy, circumcision, R eye surgery for strabismus, gallbladder stents One removed from HF on 03/19, Colostomy with open wounds. Past Anesthesia/Blood Transfusion Reactions: No Reported Reaction Date of Last Stent Placement:: 2012 Type of Cardiac Device: Permanent Pacemaker Device Placement Date:: 04/05/13 Past Psychological History: No Psychological Hx Reported Smoking Status: Current some day smoker Past Alcohol Use History: None Reported Past Drug Use History: None Reported - Past Family History Father Family Medical History: Musculoskeletal Disorder, Neurologic Disorder Additional Family Medical History / Comment(s): Father had parkinson's dx and at age 84 yrs. Mother Family Medical History: Myocardial Infarction (RI) Additional Family Medical History / Comment(s): Mother had 3 vessel CABG. She of a massive RI at the age of 53 yrs. Medications and Allergies Home Medications Medication Instructions Recorded Confirmed Type Isosorbide Mononitrate ER [Imdur] 60 mg PO DAILY 04/25/17 03/23/23 History Metoprolol Succinate [Toprol XL] 50 mg PO DAILY 02/14/19 03/23/23 History Clopidogrel [Plavix] 75 mg PO DAILY 03/20/19 03/23/23 History Albuterol Inhaler [Ventolin Hfa 1 - 2 puff INHALATION RT-Q6H PRN 02/07/23 03/23/23 History Inhaler] Cyanocobalamin (Vitamin B-12) 1,000 mcg PO DAILY 02/07/23 03/23/23 History [Vitamin B-12] Folic Acid 0.4 mg PO DAILY 02/07/23 03/23/23 History Losartan [Cozaar] 50 mg PO HS 02/07/23 03/23/23 History Sennosides/Docusate Sodium [Senna 1 tab PO BID 02/07/23 03/23/23 History Plus 8.6-50 mg Tablet] oxyCODONE HCL/ACETAMINOPHEN 1 tab PO Q6HR PRN 02/07/23 03/23/23 History [Percocet 10-325 mg] Budesonide/Formoterol Fumarate 1 puff INHALATION RT-BID 03/03/23 03/23/23 History [Symbicort 80-4.5 Mcg Inhaler] Ipratropium-Albuterol Nebulize 3 ml INHALATION RT-TID 03/03/23 03/23/23 History [Duoneb 0.5 mg-3 mg/3 ml Soln] Lactulose 20 gm PO DAILY PRN 03/03/23 03/23/23 History Diclofenac Sodium Gel [Voltaren 1% 2 gm TOPICAL QID PRN gm 03/07/23 03/23/23 Rx Gel] Furosemide [Lasix] 40 mg PO DAILY #30 tab 03/07/23 03/23/23 Rx Nystatin 100,000 Unit/gm Powd 1 applic TOPICAL BID each 03/07/23 03/23/23 Rx [Mycostatin Powder] Spironolactone [Aldactone] 25 mg PO DAILY #20 tab 03/07/23 03/23/23 Rx Aspirin 325 mg PO DAILY 03/23/23 03/23/23 History Cholecalciferol (Vitamin D3) 75 mcg PO DAILY 03/23/23 03/23/23 History [Vitamin D3 (3000 Iu)] Doxycycline Hyclate 100 mg PO BID 03/23/23 03/23/23 History Famotidine [Pepcid] 20 mg PO BID 03/23/23 03/23/23 History SILVER sulfADIAZINE CREAM 1 applic TOPICAL DAILY 03/23/23 03/23/23 History [Silvadene Cream] Allergies Allergy/AdvReac Type Severity Reaction Status Date / Time No Known Allergies Allergy Verified 03/23/23 11:42 Physical Exam Vitals: Vital Signs Temp Pulse Resp BP Pulse Ox 03/23/23 13:30 67 22 134/67 03/23/23 13:00 66 19 142/67 03/23/23 12:30 64 18 142/67 98 03/23/23 12:04 62 03/23/23 12:00 65 21 03/23/23 11:56 64 03/23/23 11:30 61 27 H 98 03/23/23 11:00 63 20 97 03/23/23 10:11 24 03/23/23 09:59 98.7 F 66 18 128/75 94 L Intake and Output 03/22/23 03/23/23 03/23/23 22:59 06:59 14:59 Other: Weight 186.88 kg Results 03/24/23 05:50 03/24/23 05:50 Cardiac Enzymes 03/23/23 03/23/23 03/23/23 Range/Units 10:31 10:31 12:08 AST 23 (17-59) U/L Troponin I <0.012 <0.012 (0.000-0.034) ng/mL Coagulation 03/23/23 Range/Units 10:31 PT 10.5 (10.0-12.5) sec APTT 26.1 (22.0-30.0) sec CBC 03/23/23 Range/Units 10:31 WBC 6.1 (3.8-10.6) k/uL RBC 4.76 (4.30-5.90) m/uL Hgb 14.9 (13.0-17.5) gm/dL Hct 45.1 (39.0-53.0) % Plt Count 168 (150-450) k/uL Comprehensive Metabolic Panel 03/23/23 Range/Units 10:31 Sodium 140 (137-145) mmol/L Potassium 3.9 (3.5-5.1) mmol/L Chloride 94 L (98-107) mmol/L Carbon Dioxide 40 H (22-30) mmol/L BUN 18 (9-20) mg/dL Creatinine 0.74 (0.66-1.25) mg/dL Glucose 94 (74-99) mg/dL Calcium 9.5 (8.4-10.2) mg/dL AST 23 (17-59) U/L ALT 25 (4-49) U/L Alkaline Phosphatase 67 (38-126) U/L Total Protein 7.0 (6.3-8.2) g/dL Albumin 3.8 (3.5-5.0) g/dL Current Medications Generic Name Dose Route Start Last Admin Trade Name Freq PRN Reason Stop Dose Admin Albuterol/Ipratropium 3 ml 03/23/23 13:00 Ipratropium-Albuterol 3 Ml Neb INHALATION RT-TID KARINA Alprazolam 0.25 mg 03/23/23 12:39 Alprazolam 0.25 Mg Tab PO Q6HR PRN Anxiety Aspirin 325 mg 03/24/23 09:00 Aspirin 325 Mg Tab PO DAILY [facility] Budesonide/Formoterol Fumarate 1 puff 03/23/23 20:00 Symbicort 80-4.5 Mcg Inhaler INHALATION RT-BID KARINA Calcium Carbonate/Glycine 1,000 mg 03/23/23 12:39 Calcium Carbonate 500 Mg Chewable PO Q4HR PRN Dyspepsia Cholecalciferol 75 mcg 03/24/23 09:00 Cholecalciferol 25 Mcg (1000 Iu) Tablet PO DAILY [facility] Clopidogrel Bisulfate 75 mg 03/24/23 09:00 Clopidogrel 75 Mg Tab PO DAILY [facility] Cyanocobalamin 1,000 mcg 03/24/23 09:00 Cyanocobalamin 500 Mcg Tab PO DAILY [facility] Diclofenac Sodium 2 gm 03/23/23 12:35 Diclofenac Sodium Gel 100 Gm Tube TOPICAL QID PRN pain Protocol Famotidine 20 mg 03/23/23 21:00 Famotidine 20 Mg Tab PO BID [facility] Furosemide 40 mg 03/24/23 09:00 Furosemide 40 Mg Tab PO DAILY [facility] Heparin Sodium (Porcine) 5,000 unit 03/23/23 16:00 Heparin Sodium,Porcine 5,000 Unit/Ml 1 Ml Vial SQ Q8HR [facility] Ampicillin Sodium/Sulbactam 50 mls @ 100 mls/hr 03/23/23 13:00 Sodium 1.5 gm/ Sodium Chloride IVPB Q6HR [facility] Protocol Isosorbide Mononitrate 60 mg 03/24/23 09:00 Isosorbide Mononitrate Er 60 Mg Tab.Er.24h PO DAILY [facility] Lactulose 20 gm 03/23/23 12:35 Lactulose 20 Gm/30 Ml Cup PO DAILY PRN Constipation Losartan Potassium 50 mg 03/23/23 21:00 Losartan 50 Mg Tab PO HS [facility] Melatonin 3 mg 03/23/23 12:39 Melatonin 3 Mg Tablet PO HS PRN Insomnia Metoprolol Succinate 50 mg 03/24/23 09:00 Metoprolol Succinate (Er) 50 Mg Tab.Er.24h PO DAILY [facility] Naloxone HCl 0.2 mg 03/23/23 11:41 Naloxone 0.4 Mg/Ml 1 Ml Vial IV Q2M PRN Opioid Reversal Nystatin 1 applic 03/23/23 12:45 Nystatin 100,000 Unit/Gm Powd 15 Gm TOPICAL BID [facility] Protocol Ondansetron HCl 4 mg 03/23/23 11:41 Ondansetron 4 Mg/2 Ml Vial IVP Q8HR PRN Nausea And Vomiting Oxycodone/Acetaminophen 1 each 03/23/23 12:37 03/23/23 13:10 Oxycodone-Apap 10-325mg 1 Each Tab PO 1 each Q6HR PRN Administration Pain Senna/Docusate Sodium 1 each 03/23/23 21:00 Sennosides-Docusate Sodium 1 Each Tab PO BID [facility] Silver Sulfadiazine 1 applic 03/23/23 12:45 03/23/23 13:11 Silver Sulfadiazine 1% Cream 25 Gm Tube TOPICAL 1 applic DAILY [facility] Administration Protocol Spironolactone 25 mg 03/24/23 09:00 Spironolactone 25 Mg Tab PO DAILY [facility] Intake and Output 03/22/23 03/23/23 03/23/23 22:59 06:59 14:59 Other: Weight 186.88 kg Patient Weight 03/24/23 06:59 Weight 186.88 kg 03/23/23 10:31 03/23/23 10:31
--- NOTE | 2023-03-24 13:11 | PN ---
PROGRESS NOTE DATE OF SERVICE: 03/24/2023 SUBJECTIVE: This is a 67-year-old gentleman who was admitted with chest pain and bilateral leg cellulitis, is being treated with antibiotics, Cardiology has cleared the patient. No chest pain, no palpitations, no fever. Infectious Disease following the patient closely. Cultures are pending. OBJECTIVE: VITAL SIGNS: Pulse is 75, blood pressure 190/70, respirations 18. CHEST: Clear to auscultation. CARDIOVASCULAR: S1, S2. ABDOMEN: Soft. LEGS: Bilateral leg cellulitis, which is dressed. Labs are reviewed. ASSESSMENT: 1. Bilateral leg cellulitis. 2. With failure of outpatient treatment. 3. Chest pain, improved. 4. History of coronary artery disease. 5. COPD. 6. History of CVA TIA. 7. Multiple complex medical issues. RECOMMENDATIONS: Recommended to continue current management, continue symptomatic treatment. I would recommend continue with empiric antibiotics. Resume the home medications. Await cultures local treatment the patient is on cefazolin. Await cultures. Further recommendations to follow. MMODL / IJN: [id number] /
[2023-03-24] MEDS: LOSARTAN 50 MG TAB PO SCH (21:00)
[2023-03-24] MEDS: LACTULOSE 20 GM/30 ML CUP PO PRN (21:11)
--- NOTE | 2023-03-24 23:03 | P.PN ---
Subjective Progress Note Date: 03/24/23 Principal diagnosis: Bilateral leg cellulitis Patient is a 67-year-old male with multiple comorbidities presenting to the hospital for evaluation of feeling weak and dizzy increasing swelling redness to bilateral lower extremity and the patient has been diagnosed with b ilateral lower extremity cellulitis. On today's evaluation that is 03/24/2023 patient denies having any fever or any chills still complaining of feeling weak and tired and did have some chest pain and shortness of breath denies any cough is] no abdominal pain and denies any worsening pain to bilateral lower extremity Patient did have a white count of 5.86 creatinine 0.8. Objective - Vital Signs Vital signs: Vital Signs Temp 98.8 F 03/24/23 07:00 Pulse 75 03/24/23 07:00 Resp 18 03/24/23 07:00 BP 119/71 03/24/23 07:00 Pulse Ox 94 L 03/24/23 07:00 FiO2 Intake & Output 03/23/23 03/24/23 03/24/23 18:59 06:59 18:59 Output Total 1650 Balance -1650 Weight 186.88 kg Output: Urine 1650 Other: Voiding Method External Catheter - Exam GENERAL DESCRIPTION: Elderly male lying in bed in no distress RESPIRATORY SYSTEM: Unlabored breathing , decreased breath sounds at bases HEART: S1 S2 regular rate and rhythm ,no loud murmurs ABDOMEN: Soft , no tenderness EXTREMITIES: Bilateral legs are currently wrapped in Manpreet wrap no drainage on the dressing - Labs CBC & Chem 7: 03/24/23 05:50 03/24/23 05:50 Labs: Abnormal Lab Results - Last 24 Hours (Table) 03/23/23 03/24/23 03/24/23 Range/Units 10:31 05:50 05:50 RBC 4.39 L (4.40-5.60) X 10*6/uL MCV 97.3 H (80.0-97.0) FL MCHC 31.1 L (32.0-37.0) d/dL Chloride 94 L (98-107) mmol/L Carbon Dioxide 40 H 39.0 H (22-30) mmol/L Assessment and Plan (1) Bilateral lower leg cellulitis Current Visit: No Status: Acute Code(s): L03.116 - CELLULITIS OF LEFT LOWER LIMB; L03.115 - CELLULITIS OF RIGHT LOWER LIMB SNOMED Code(s): 636816845 Plan: 1patient with bilateral lower extremity cellulitis in this patient with diffuse swelling and redness likely streptococcal disease clinically doubt gram-negative or MRSA infection. 2we will keep the patient on cefazolin 3 g every 8 hours along with Manpreet wrap to both legs to keep the swelling down and will monitor his clinical course closely Dictation was produced using [employer] dictation software. please excuse any grammatical, word or spelling errors.
[2023-03-25] MEDS: ceFAZolin 3 GM in SODIUM CHLORIDE 0.9% 100 ML IVPB SCH ×4 (00:12→23:28)
[2023-03-25] MEDS: oxyCODONE-APAP 10-325MG 1 EACH TAB PO PRN ×4 (02:54→23:28)
[2023-03-25] MEDS: ENOXAPARIN 40 MG/0.4 ML SYRINGE SQ SCH (08:32)
[2023-03-25] MEDS: TORSEMIDE 20 MG TAB PO SCH (08:32)
[2023-03-25] MEDS: CHOLECALCIFEROL 25 MCG (1000 IU) TABLET PO SCH (08:33)
[2023-03-25] MEDS: CYANOCOBALAMIN 500 MCG TAB PO SCH (08:33)
[2023-03-25] MEDS: ISOSORBIDE MONONITRATE ER 60 MG TAB.ER.24H PO SCH (08:33)
[2023-03-25] MEDS: SPIRONOLACTONE 25 MG TAB PO SCH (08:33)
[2023-03-25] MEDS: SENNOSIDES-DOCUSATE SODIUM 1 EACH TAB PO SCH ×2 (08:33→19:50)
[2023-03-25] MEDS: CLOPIDOGREL 75 MG TAB PO SCH (08:33)
[2023-03-25] MEDS: ASPIRIN 325 MG TAB PO SCH (08:33)
[2023-03-25] MEDS: METOPROLOL SUCCINATE (ER) 50 MG TAB.ER.24H PO SCH (08:33)
[2023-03-25] MEDS: FAMOTIDINE 20 MG TAB PO SCH ×2 (08:33→19:50)
[2023-03-25] MEDS: NYSTATIN 100,000 UNIT/GM POWD 15 GM TOPICAL SCH ×2 (08:34→19:50)
[2023-03-25] MEDS: IPRATROPIUM-ALBUTEROL 3 ML NEB INHALATION SCH ×3 (09:03→21:05)
[2023-03-25] MEDS: SYMBICORT 80-4.5 MCG INHALER INHALATION SCH ×2 (09:03→21:05)
[2023-03-25 09:05] LABS: Basophils # (A) 0.02 X 10*3/uL (0.00-0.10); Basophils % (A) 0.3 %; Eosinophils # (A) 0.09 X 10*3/uL (0.04-0.35); Eosinophils % (A) 1.4 %; HCT 41.6 % (39.6-50.0); HGB 13.1 d/dL (13.0-17.0); Lymphocytes # (A) 1.66 X 10*3/uL (0.90-5.00); Lymphocytes % (A) 25.6 %; MCH 30.3 pg (27.0-32.0); MCHC 31.5 d/dL (32.0-37.0); MCV 96.1 FL (80.0-97.0); Mean Platelet Volume 10.2 FL (9.5-12.2); Monocytes # (A) 0.51 X 10*3/uL (0.20-1.00); Monocytes % (A) 7.9 %; NRBC Per 100 WBC 0 X 10*3/uL (0.00-0.01); Neutrophils # (A) 4.19 X 10*3/uL (1.80-7.70); Neutrophils % (A) 64.5 %; Platelet Count 143 X 10*3/uL (140-440); RBC 4.33 X 10*6/uL (4.40-5.60); RDW 13.4 % (11.5-14.5); WBC 6.49 X 10*3/uL (4.50-10.00)
[2023-03-25 09:19] LABS: BUN/Creat Ratio 17.75 Ratio (12.00-20.00); Blood Urea Nitrogen 14.2 mg/dL (9.0-27.0); Calcium 9.4 mg/dL (8.7-10.3); Carbon Dioxide 43.4 mmol/L (21.6-31.8); Chloride 97 mmol/L (96-109); Glucose 87 mg/dL (70-110); Potassium 4.5 mmol/L (3.5-5.5); Sodium 141 mmol/L (135-145)
--- NOTE | 2023-03-25 11:14 | CA ---
Transthoracic Echo Report Name: Willy Lares Age: 67 Gender: M : 1955 Exam Date: 03/24/2023 14:10 Exam Location: [facility] Ht (in): 72 Wt (lb): 412 Ordering Physician: Dalila Vargas Attending/Referring Phys: [id number], [facility] Director Jacey Mercado RDCS Procedure CPT: Indications: LV function Cardiac Hx: Technical Quality: Technically difficult study Contrast 1: Definity Total Dose (mL): 2 Contrast 2: Total Dose (mL): MEASUREMENTS (Male / Female) Normal Values 2D ECHO LV Diastolic Diameter PLAX 5.4 cm 4.2 - 5.9 / 3.9 - 5.3 cm LV Systolic Diameter PLAX 4.3 cm IVS Diastolic Thickness 1.6 cm 0.6 - 1.0 / 0.6 - 0.9 cm LVPW Diastolic Thickness 1.4 cm 0.6 - 1.0 / 0.6 - 0.9 cm LV Relative Wall Thickness 0.6 RV Internal Dim ED PLAX 3.1 cm M-MODE Aortic Root Diameter MM 4.3 cm LA Systolic Diameter MM 4.3 cm LA Ao Ratio MM 1.0 AV Cusp Separation MM 2.2 cm DOPPLER AV Peak Velocity 198.0 cm/s AV Peak Gradient 15.7 mmHg AV Mean Velocity 136.8 cm/s AV Mean Gradient 8.3 mmHg AV Velocity Time Integral 43.2 cm LVOT Peak Velocity 96.9 cm/s LVOT Peak Gradient 3.8 mmHg LVOT Velocity Time Integral 22.8 cm MV Area PHT 3.5 cm??? Mitral E Point Velocity 90.8 cm/s Mitral A Point Velocity 64.8 cm/s Mitral E to A Ratio 1.4 MV Deceleration Time 216.9 ms MV E' Velocity 6.9 cm/s Mitral E to MV E' Ratio 13.1 TR Peak Velocity 201.6 cm/s TR Peak Gradient 16.3 mmHg Right Ventricular Systolic Press 21.3 mmHg FINDINGS Left Ventricle Moderately increased left ventricular wall thickness. Normal left ventricular systolic function with no obvious regional wall motion abnormalities. Left ventricular ejection fraction is estimated at 55 %. Right Ventricle Normal right ventricular size and function. Right ventricular systolic pressure within normal limits. Right Atrium Right atrium not well visualized. Left Atrium Left atrium not well visualized. Mitral Valve Mitral valve not well visualized. Mild mitral regurgitation. Aortic Valve Aortic valve not well visualized. No aortic valve stenosis or regurgitation. Tricuspid Valve Tricuspid valve not well visualized. Mild tricuspid regurgitation. Pulmonic Valve Pulmonic valve not well visualized. Pericardium No pericardial effusion. Aorta Normal size aortic root and proximal ascending aorta. CONCLUSIONS Left ventricular ejection fraction is estimated at 55 %. No obvious regional wall motion abnormalities. Moderately increased left ventricular wall thickness. Mild mitral regurgitation. No pericardial effusion. Previewed by: Dr Eriberto Pope (Electronically Signed) Final Date: 25 March 2023 11:13
--- NOTE | 2023-03-25 11:40 | P.PN ---
Subjective HISTORY OF PRESENT ILLNESS: This is a 67 year old male with a past medical history significant for congestive heart failure, coronary artery disease with previous PCI, CVA, hypertension, hyperlipidemia, lymphedema, COPD, obstructive sleep apnea, chronic hypoxic respiratory failure on home oxygen, nicotine dependence. Patient follows with a director of veterans affairs out of [facility]. We have been asked to see the patient in consultation for chest pain. Patient examined at the bedside. Patient presented to the hospital with a chief complaint of discomfort in his lower extremities. The patient was started on doxycycline on an outpatient basis for her lateral lower extremity edema. He also reports having shortness of breath. The patient does not recall if he was having chest pain yesterday. At the time of examination, he denies chest pain or pressure. He has been evaluated by infectious disease and is started on IV antibiotics. * EKG reveals sinus mechanism with nonspecific ST-T wave changes * Chest xray negative for acute process * Current home cardiac medications include Plavix 75 mg daily, Imdur 60 mg daily, metoprolol succinate 50 mg daily, Lasix 40 mg daily, aspirin 325 mg daily, losartan 50 mg at night * Most recent echocardiogram obtained in September 2018 revealing ejection fraction 50-55% with moderate LVH 03/25/2023 Patient examined this morning at the bedside. Patient denies chest pain or pressure. He reports mild shortness of breath. Echocardiogram completed revealing ejection fraction 55-60% with no significant valvular dysfunction. PHYSICAL EXAM: VITAL SIGNS: Reviewed. GENERAL: Well-developed in no acute distress. HEENT: Head is normocephalic. Pupils are equal, round. Sclerae anicteric. Mucous membranes of the mouth are moist. Neck supple. No JVD or thyromegaly LUNGS: Respirations even and unlabored. Lungs with expiratory wheezing and decreased air exchange noted HEART: Regular rate and rhythm. S1 and S2 heard. ABDOMEN: Soft. Nondistended. Nontender. EXTREMITIES: Normal range of motion. No clubbing or cyanosis. Peripheral pulses intact. Chronic skin discoloration noted with peripheral edema and erythema to bilateral lower extremities NEUROLOGIC: Awake and alert. Oriented x 3. ASSESSMENT: Chest pain, patient unsure if he was having chest pain yesterday, troponin negative x 3 Bilateral lower extremity cellulitis, on doxycycline outpatient Coronary artery disease with previous stenting, details unknown Acute COPD exacerbation Chronic hypoxic respiratory failure on home oxygen Chronic congestive heart failure with preserved ejection fraction, 50-55% in 2019 History of AICD implantation History of CVA Hypertension Hyperlipidemia Bilateral lower extremity lymphedema Obstructive sleep apnea, noncompliant with CPAP Nicotine dependence Morbid obesity PLAN: Patient has been transitioned to oral diuretics Continue additional cardiac medications Continue antibiotics per infectious disease Further recommendations pending patient's course Nurse practitioner note has been reviewed by physician. Signing provider agrees with the documented findings, assessment, and plan of care. Objective - Vital Signs Vital signs: Vital Signs Temp 98.3 F 03/25/23 07:55 Pulse 72 03/25/23 09:20 Resp 16 03/25/23 07:55 BP 169/82 03/25/23 07:55 Pulse Ox 92 L 03/25/23 09:43 FiO2 Intake & Output 03/24/23 03/25/23 03/25/23 18:59 06:59 18:59 Intake Total 500 59 Output Total 1550 650 Balance 500 -1550 -591 Intake: Oral 500 59 Output: Urine 1550 650 Other: Voiding Method External Catheter External Catheter # Voids 1 - Labs CBC & Chem 7: 03/25/23 05:46 03/25/23 05:46 Labs: Abnormal Lab Results - Last 24 Hours (Table) 03/25/23 03/25/23 Range/Units 05:46 05:46 RBC 4.33 L (4.40-5.60) X 10*6/uL MCHC 31.5 L (32.0-37.0) d/dL Carbon Dioxide 43.4 H* (21.6-31.8) mmol/L Anion Gap 0.60 L (4.00-12.00) mmol/L
[2023-03-25] MEDS ORDERED: polyethylene glycoL 3350 17 GM POWD.PACK PO STA (15:16)
--- NOTE | 2023-03-25 15:27 | P.PN ---
Subjective Progress Note Date: 03/25/23 Principal diagnosis: Bilateral leg cellulitis Patient is a 67-year-old male with multiple comorbidities presenting to the hospital for evaluation of feeling weak and dizzy increasing swelling redness to bilateral lower extremity and the patient has been diagnosed with b ilateral lower extremity cellulitis. On today's evaluation that is 03/25/2023, the patient denies any fever or any chills, the patient is breathing comfortably on 3 L nasal cannula supplemental oxygen, the patient denies any chest pain or cough, patient denies any nausea/vomiting or diarrhea and no abdominal pain , the patient denies any worsening pain to bilateral lower extremity Patient did have a white count is 6.49, creatinine 0.8 Objective - Vital Signs Vital signs: Vital Signs Temp 98.3 F 03/25/23 07:55 Pulse 72 03/25/23 09:20 Resp 16 03/25/23 07:55 BP 169/82 03/25/23 07:55 Pulse Ox 92 L 03/25/23 09:43 FiO2 Intake & Output 03/24/23 03/25/23 03/25/23 18:59 06:59 18:59 Intake Total 500 59 Output Total 1550 650 Balance 500 -1550 -591 Intake: Oral 500 59 Output: Urine 1550 650 Other: Voiding Method External Catheter External Catheter # Voids 1 - Exam GENERAL DESCRIPTION: Elderly male lying in bed in no distress RESPIRATORY SYSTEM: Unlabored breathing , decreased breath sounds at bases HEART: S1 S2 regular rate and rhythm ,no loud murmurs ABDOMEN: Soft , no tenderness EXTREMITIES: Bilateral legs swelling redness slightly decreased - Labs CBC & Chem 7: 03/25/23 05:46 03/25/23 05:46 Labs: Abnormal Lab Results - Last 24 Hours (Table) 03/25/23 03/25/23 Range/Units 05:46 05:46 RBC 4.33 L (4.40-5.60) X 10*6/uL MCHC 31.5 L (32.0-37.0) d/dL Carbon Dioxide 43.4 H* (21.6-31.8) mmol/L Anion Gap 0.60 L (4.00-12.00) mmol/L Assessment and Plan (1) Bilateral lower leg cellulitis Current Visit: No Status: Acute Code(s): L03.116 - CELLULITIS OF LEFT LOWER LIMB; L03.115 - CELLULITIS OF RIGHT LOWER LIMB SNOMED Code(s): 902273998 Plan: 1patient with bilateral lower extremity cellulitis in this patient with diffuse swelling and redness likely streptococcal disease clinically doubt gram-negative or MRSA infection. 2patient to continue cefazolin 3 g every 8 hours along with Manpreet wrap to both legs to keep the swelling down and continue with supportive care Dictation was produced using [employer] dictation software. please excuse any grammatical, word or spelling errors. Time with Patient: Less than 30
[2023-03-25] MEDS: LOSARTAN 50 MG TAB PO SCH (19:50)
[2023-03-25] MEDS: DOCUSATE 100 MG CAP PO SCH (19:50)
--- NOTE | 2023-03-25 20:15 | P.PN ---
Subjective This is a pleasant 67 years old male with multiple medical problems. Presents because of chest pain and bilateral leg and feet pain and swelling. Patient was found to have hypertensive urgency, currently blood pressure is better controlled. He started on the torsemide 20 mg daily. Also his been covered with his bilateral leg cellulitis. No fever or leukocytosis with home dose of aspirin 325 mg Plavix. Patient was compared from constipation and Colace and MiraLAX admitted today Objective - Vital Signs Vital signs: Vital Signs Temp 98.6 F 03/25/23 14:14 Pulse 66 03/25/23 14:14 Resp 16 03/25/23 14:14 BP 117/70 03/25/23 14:14 Pulse Ox 99 03/25/23 14:14 FiO2 Intake & Output 03/24/23 03/25/23 03/25/23 18:59 06:59 18:59 Intake Total 500 559 Output Total 1550 650 Balance 500 -1550 -91 Intake: Oral 500 559 Output: Urine 1550 650 Other: Voiding Method External Catheter External Catheter # Voids 1 1 - Exam GENERAL: The patient is alert and oriented x3, not in any acute distress. Well developed, well nourished. HEENT: Pupils are round and equally reacting to light. EOMI. No scleral icterus. No conjunctival pallor. Normocephalic, atraumatic. No pharyngeal erythema. No thyromegaly. CARDIOVASCULAR: S1 and S2 present. No murmurs, rubs, or gallops. PULMONARY: Chest is clear to auscultation, no wheezing , no crackles. ABDOMEN: Soft, nontender, nondistended, normoactive bowel sounds. No palpable organomegaly. MUSCULOSKELETAL: No joint swelling or deformity. -EXTREMITIES: No cyanosis, clubbing, . Bilateral pitting leg edema. NEUROLOGICAL: Gross neurological examination did not reveal any focal deficits. SKIN: No rashes. no petechiae. - Labs CBC & Chem 7: 03/25/23 05:46 03/25/23 05:46 Labs: Abnormal Lab Results - Last 24 Hours (Table) 03/25/23 03/25/23 Range/Units 05:46 05:46 RBC 4.33 L (4.40-5.60) X 10*6/uL MCHC 31.5 L (32.0-37.0) d/dL Carbon Dioxide 43.4 H* (21.6-31.8) mmol/L Anion Gap 0.60 L (4.00-12.00) mmol/L Assessment and Plan Assessment: Bilateral leg cellulitis Chest pain resolved Hypertension History of coronary artery disease COPD, no X patient History of CVA/TIA Plan: Continue cefazolin Continue with aspirin and Plavix Added torsemide Cardiology and infectious disease team on the case Labs and medication were reviewed.. Continue same treatment. Continue with symptomatic treatment. Resume home medication. Monitor labs and vitals. DVT and GI prophylaxis. Further recommendations as per clinical course of the patient DVT prophylaxis: Subcutaneous Lovenox GI Prophylaxis: Pepcid Prognosis is guarded
[2023-03-26] MEDS: oxyCODONE-APAP 10-325MG 1 EACH TAB PO PRN ×4 (05:37→23:36)
[2023-03-26] MEDS: SYMBICORT 80-4.5 MCG INHALER INHALATION SCH ×2 (08:00→19:33)
[2023-03-26] MEDS: IPRATROPIUM-ALBUTEROL 3 ML NEB INHALATION SCH ×3 (08:00→19:33)
[2023-03-26] MEDS: NYSTATIN 100,000 UNIT/GM POWD 15 GM TOPICAL SCH ×2 (08:50→20:06)
[2023-03-26] MEDS: ceFAZolin 3 GM in SODIUM CHLORIDE 0.9% 100 ML IVPB SCH ×3 (08:51→23:37)
[2023-03-26] MEDS: ISOSORBIDE MONONITRATE ER 60 MG TAB.ER.24H PO SCH (08:51)
[2023-03-26] MEDS: ENOXAPARIN 40 MG/0.4 ML SYRINGE SQ SCH (08:51)
[2023-03-26] MEDS: ASPIRIN 325 MG TAB PO SCH (08:51)
[2023-03-26] MEDS: CHOLECALCIFEROL 25 MCG (1000 IU) TABLET PO SCH (08:51)
[2023-03-26] MEDS: SPIRONOLACTONE 25 MG TAB PO SCH (08:51)
[2023-03-26] MEDS: METOPROLOL SUCCINATE (ER) 50 MG TAB.ER.24H PO SCH (08:51)
[2023-03-26] MEDS: CYANOCOBALAMIN 500 MCG TAB PO SCH (08:52)
[2023-03-26] MEDS: SENNOSIDES-DOCUSATE SODIUM 1 EACH TAB PO SCH ×2 (08:52→20:06)
[2023-03-26] MEDS: FAMOTIDINE 20 MG TAB PO SCH ×2 (08:52→20:06)
[2023-03-26] MEDS: TORSEMIDE 20 MG TAB PO SCH (08:52)
[2023-03-26] MEDS: DOCUSATE 100 MG CAP PO SCH ×2 (08:52→20:06)
[2023-03-26] MEDS: CLOPIDOGREL 75 MG TAB PO SCH (08:52)
[2023-03-26] MEDS: LACTULOSE 20 GM/30 ML CUP PO PRN (09:06)
--- NOTE | 2023-03-26 14:14 | P.PN ---
Subjective Progress Note Date: 03/26/23 Principal diagnosis: Bilateral leg cellulitis Patient is a 67-year-old male with multiple comorbidities presenting to the hospital for evaluation of feeling weak and dizzy increasing swelling redness to bilateral lower extremity and the patient has been diagnosed with b ilateral lower extremity cellulitis. On today's evaluation that is 03/26/2023, the patient remains to be afebrile, the patient is breathing comfortably on 3 L nasal cannula oxygen, the patient denies any chest pain or cough, patient denies Abdominal pain and no nausea/vomiting or diarrhea the patient pain to bilateral lower extremity has decreased in intensity Patient did have a white count is 6.49, creatinine 0.8 as of yesterday no lab draw today Objective - Vital Signs Vital signs: Vital Signs Temp 97.6 F 03/26/23 07:30 Pulse 80 03/26/23 12:16 Resp 16 03/26/23 07:30 BP 119/72 03/26/23 07:30 Pulse Ox 97 03/26/23 07:30 FiO2 Intake & Output 03/25/23 03/26/23 03/26/23 18:59 06:59 18:59 Intake Total 559 500 Output Total 2650 900 700 Balance -2094 -400 -700 Intake: Oral 559 500 Output: Urine 2650 900 700 Other: Voiding Method External Catheter External Catheter External Catheter # Voids 1 - Exam GENERAL DESCRIPTION: Elderly male lying in bed in no distress RESPIRATORY SYSTEM: Unlabored breathing , decreased breath sounds at bases HEART: S1 S2 regular rate and rhythm ,no loud murmurs ABDOMEN: Soft , no tenderness EXTREMITIES: Bilateral legs swelling redness slightly decreased - Labs CBC & Chem 7: 03/25/23 05:46 03/25/23 05:46 Assessment and Plan (1) Bilateral lower leg cellulitis Current Visit: No Status: Acute Code(s): L03.116 - CELLULITIS OF LEFT LOWER LIMB; L03.115 - CELLULITIS OF RIGHT LOWER LIMB SNOMED Code(s): 291244057 Plan: 1patient with bilateral lower extremity cellulitis in this patient with diffuse swelling and redness likely streptococcal disease clinically doubt gram-negative or MRSA infection. 2patient did have some clinical improvement and will continue cefazolin 3 g every 8 hours along with Manpreet wrap to both legs to keep the swelling down and continue with supportive care Dictation was produced using [employer] dictation software. please excuse any grammatical, word or spelling errors. Time with Patient: Less than 30
--- NOTE | 2023-03-26 15:37 | P.PN ---
Subjective Progress Note Date: 03/26/23 HISTORY OF PRESENT ILLNESS: This is a 67 year old male with a past medical history significant for congestive heart failure, coronary artery disease with previous PCI, CVA, hypertension, hyperlipidemia, lymphedema, COPD, obstructive sleep apnea, chronic hypoxic respiratory failure on home oxygen, nicotine dependence. Patient follows with a etl database developer out of [facility]. We have been asked to see the patient in consultation for chest pain. Patient examined at the bedside. Patient presented to the hospital with a chief complaint of discomfort in his lower extremities. The patient was started on doxycycline on an outpatient basis for her lateral lower extremity edema. He also reports having shortness of breath. The patient does not recall if he was having chest pain yesterday. At the time of examination, he denies chest pain or pressure. He has been evaluated by infectious disease and is started on IV antibiotics. * EKG reveals sinus mechanism with nonspecific ST-T wave changes * Chest xray negative for acute process * Current home cardiac medications include Plavix 75 mg daily, Imdur 60 mg daily, metoprolol succinate 50 mg daily, Lasix 40 mg daily, aspirin 325 mg daily, losartan 50 mg at night * Most recent echocardiogram obtained in September 2018 revealing ejection fraction 50-55% with moderate LVH 03/25/2023 Patient examined this morning at the bedside. Patient denies chest pain or pressure. He reports mild shortness of breath. Echocardiogram completed revealing ejection fraction 55-60% with no significant valvular dysfunction. 03/26/2023 He reports that he is doing ok. Denies any chest pain or shortness of breath. He believes that his lower extremity swelling is improving, kaylie wraps on. He feels back to his baseline pre-hospitalization. PHYSICAL EXAM: VITAL SIGNS: Reviewed. GENERAL: Well-developed in no acute distress. HEENT: Head is normocephalic. Pupils are equal, round. Sclerae anicteric. Mucous membranes of the mouth are moist. LUNGS: Respirations even and unlabored. Lungs with expiratory wheezing and decreased air exchange noted HEART: Regular rate and rhythm. S1 and S2 heard. ABDOMEN: Soft. Nondistended. Nontender. EXTREMITIES: Normal range of motion. No clubbing or cyanosis. Peripheral pulses intact. Chronic skin discoloration noted with peripheral edema and erythema to bilateral lower extremities, kaylie wraps on. NEUROLOGIC: Awake and alert. Oriented x 3. ASSESSMENT: Chest pain, patient unsure if he was having chest pain yesterday, troponin negative x 3 Bilateral lower extremity cellulitis, on IV antibiotics Coronary artery disease with previous stenting, details unknown Acute COPD exacerbation Chronic hypoxic respiratory failure on home oxygen Chronic congestive heart failure with preserved ejection fraction, 50-55% in 2019, 55-60% on recent ECHO 03/25/23. History of AICD implantation History of CVA Hypertension Hyperlipidemia Bilateral lower extremity lymphedema Obstructive sleep apnea, noncompliant with CPAP Nicotine dependence Morbid obesity PLAN: Patient stable on oral diuretics Continue additional cardiac medications Continue antibiotics per infectious disease Cardiology to sign off. Please call with any questions or concerns. Nurse practitioner note has been reviewed by physician. Signing provider agrees with the documented findings, assessment, and plan of care. Objective - Vital Signs Vital signs: Vital Signs Temp 97.6 F 03/26/23 07:30 Pulse 86 03/26/23 08:11 Resp 16 03/26/23 07:30 BP 119/72 03/26/23 07:30 Pulse Ox 97 03/26/23 07:30 FiO2 Intake & Output 03/25/23 03/26/23 03/26/23 18:59 06:59 18:59 Intake Total 559 500 Output Total 2650 900 Balance -2090 Intake: Oral 559 500 Output: Urine 2650 900 Other: Voiding Method External Catheter External Catheter # Voids 1 - Labs CBC & Chem 7: 03/25/23 05:46 03/25/23 05:46
--- NOTE | 2023-03-26 16:36 | P.PN ---
Subjective This is a pleasant 67 years old male with multiple medical problems. Presents because of chest pain and bilateral leg and feet pain and swelling. Patient was found to have hypertensive urgency, currently blood pressure is better controlled. He started on the torsemide 20 mg daily. Also his been covered with his bilateral leg cellulitis. No fever or leukocytosis with home dose of aspirin 325 mg Plavix. Patient was compared from constipation and Colace and MiraLAX admitted today 03/26/2023 Patient still with bilateral leg cellulitis, improving slowly and gradually Her medicines on cefazolin Assembler Equipment recommended to continue with the current cardiac medication and they signed off the case Objective - Vital Signs Vital signs: Vital Signs Temp 97.6 F 03/26/23 07:30 Pulse 80 03/26/23 12:16 Resp 16 03/26/23 07:30 BP 119/72 03/26/23 07:30 Pulse Ox 97 03/26/23 07:30 FiO2 Intake & Output 03/25/23 03/26/23 03/26/23 18:59 06:59 18:59 Intake Total 559 500 Output Total 2650 900 700 Balance -2091 -400 -700 Intake: Oral 559 500 Output: Urine 2650 900 700 Other: Voiding Method External Catheter External Catheter External Catheter # Voids 1 - Exam GENERAL: The patient is alert and oriented x3, not in any acute distress. Well developed, well nourished. HEENT: Pupils are round and equally reacting to light. EOMI. No scleral icterus. No conjunctival pallor. Normocephalic, atraumatic. No pharyngeal erythema. No thyromegaly. CARDIOVASCULAR: S1 and S2 present. No murmurs, rubs, or gallops. PULMONARY: Chest is clear to auscultation, no wheezing , no crackles. ABDOMEN: Soft, nontender, nondistended, normoactive bowel sounds. No palpable organomegaly. MUSCULOSKELETAL: No joint swelling or deformity. -EXTREMITIES: No cyanosis, clubbing, . Bilateral pitting leg edema. NEUROLOGICAL: Gross neurological examination did not reveal any focal deficits. SKIN: No rashes. no petechiae. - Labs CBC & Chem 7: 03/25/23 05:46 03/25/23 05:46 Assessment and Plan Assessment: Bilateral leg cellulitis Chest pain resolved Hypertension History of coronary artery disease COPD, no X patient History of CVA/TIA Plan: Continue cefazolin Continue with aspirin and Plavix Added torsemide Cardiology and infectious disease team on the case Labs and medication were reviewed.. Continue same treatment. Continue with symptomatic treatment. Resume home medication. Monitor labs and vitals. DVT and GI prophylaxis. Further recommendations as per clinical course of the patient DVT prophylaxis: Subcutaneous Lovenox GI Prophylaxis: Pepcid Prognosis is guarded
[2023-03-26] MEDS: LOSARTAN 50 MG TAB PO SCH (20:06)
[2023-03-27] MEDS: LACTULOSE 20 GM/30 ML CUP PO PRN (05:43)
[2023-03-27] MEDS: oxyCODONE-APAP 10-325MG 1 EACH TAB PO PRN ×3 (05:43→18:46)
[2023-03-27] MEDS: SYMBICORT 80-4.5 MCG INHALER INHALATION SCH ×2 (08:02→19:36)
[2023-03-27] MEDS: IPRATROPIUM-ALBUTEROL 3 ML NEB INHALATION SCH ×3 (08:02→19:36)
[2023-03-27] MEDS: DOCUSATE 100 MG CAP PO SCH ×2 (08:18→20:27)
[2023-03-27] MEDS: FAMOTIDINE 20 MG TAB PO SCH ×2 (08:18→20:27)
[2023-03-27] MEDS: ASPIRIN 325 MG TAB PO SCH (08:18)
[2023-03-27] MEDS: CHOLECALCIFEROL 25 MCG (1000 IU) TABLET PO SCH (08:18)
[2023-03-27] MEDS: CYANOCOBALAMIN 500 MCG TAB PO SCH (08:19)
[2023-03-27] MEDS: ISOSORBIDE MONONITRATE ER 60 MG TAB.ER.24H PO SCH (08:19)
[2023-03-27] MEDS: ENOXAPARIN 40 MG/0.4 ML SYRINGE SQ SCH (08:19)
[2023-03-27] MEDS: SENNOSIDES-DOCUSATE SODIUM 1 EACH TAB PO SCH ×2 (08:19→20:27)
[2023-03-27] MEDS: ceFAZolin 3 GM in SODIUM CHLORIDE 0.9% 100 ML IVPB SCH ×2 (08:19→17:32)
[2023-03-27] MEDS: CLOPIDOGREL 75 MG TAB PO SCH (08:19)
[2023-03-27] MEDS: SPIRONOLACTONE 25 MG TAB PO SCH (08:19)
[2023-03-27] MEDS: METOPROLOL SUCCINATE (ER) 50 MG TAB.ER.24H PO SCH (08:19)
[2023-03-27] MEDS: TORSEMIDE 20 MG TAB PO SCH (08:19)
[2023-03-27] MEDS: NYSTATIN 100,000 UNIT/GM POWD 15 GM TOPICAL SCH ×2 (08:20→20:27)
--- NOTE | 2023-03-27 14:09 | P.PN ---
Subjective This is a pleasant 67 years old male with multiple medical problems. Presents because of chest pain and bilateral leg and feet pain and swelling. Patient was found to have hypertensive urgency, currently blood pressure is better controlled. He started on the torsemide 20 mg daily. Also his been covered with his bilateral leg cellulitis. No fever or leukocytosis with home dose of aspirin 325 mg Plavix. Patient was compared from constipation and Colace and MiraLAX admitted today 03/26/2023 Patient still with bilateral leg cellulitis, improving slowly and gradually Her medicines on cefazolin Knitting Machine Fixer recommended to continue with the current cardiac medication and they signed off the case 03/27/2023 Patient continued to improve slowly and gradually. No new complaints. His bilateral leg swelling improving gradually Continue with IV cefazolin Objective - Vital Signs Vital signs: Vital Signs Temp 98.0 F 03/27/23 07:34 Pulse 70 03/27/23 12:08 Resp 16 03/27/23 07:34 BP 155/81 03/27/23 07:34 Pulse Ox 95 03/27/23 07:34 FiO2 Intake & Output 03/26/23 03/27/23 03/27/23 18:59 06:59 18:59 Intake Total 830 225 Output Total 750 350 750 Balance 80 -125 -750 Intake: Oral 830 225 Output: Urine 700 350 750 Stool 50 Other: Voiding Method External Catheter External Catheter External Catheter - Exam GENERAL: The patient is alert and oriented x3, not in any acute distress. Well developed, well nourished. HEENT: Pupils are round and equally reacting to light. EOMI. No scleral icterus. No conjunctival pallor. Normocephalic, atraumatic. No pharyngeal erythema. No thyromegaly. CARDIOVASCULAR: S1 and S2 present. No murmurs, rubs, or gallops. PULMONARY: Chest is clear to auscultation, no wheezing , no crackles. ABDOMEN: Soft, nontender, nondistended, normoactive bowel sounds. No palpable organomegaly. MUSCULOSKELETAL: No joint swelling or deformity. -EXTREMITIES: No cyanosis, clubbing, . Bilateral pitting leg edema. NEUROLOGICAL: Gross neurological examination did not reveal any focal deficits. SKIN: No rashes. no petechiae. - Labs CBC & Chem 7: 03/25/23 05:46 03/25/23 05:46 Assessment and Plan Assessment: Bilateral leg cellulitis Chest pain resolved Hypertension History of coronary artery disease COPD, no X patient History of CVA/TIA Plan: Continue cefazolin Continue with aspirin and Plavix Added torsemide Cardiology and infectious disease team on the case Labs and medication were reviewed.. Continue same treatment. Continue with symptomatic treatment. Resume home medication. Monitor labs and vitals. DVT and GI prophylaxis. Further recommendations as per clinical course of the patient DVT prophylaxis: Subcutaneous Lovenox GI Prophylaxis: Pepcid Prognosis is guarded
--- NOTE | 2023-03-27 16:21 | P.PN ---
Subjective Progress Note Date: 03/27/23 Principal diagnosis: Bilateral leg cellulitis Patient is a 67-year-old male with multiple comorbidities presenting to the hospital for evaluation of feeling weak and dizzy increasing swelling redness to bilateral lower extremity and the patient has been diagnosed with b ilateral lower extremity cellulitis. On today's evaluation that is 03/27/2023, the patient denies any fever or chills, the patient is breathing comfortably on room air and no need for supplemental oxygen, the patient denies any chest pain or cough, patient denies nausea/vomiting or diarrhea and no abdominal pain, the patient pain to bilateral lower extremity has decreased in intensity Patient did have a white count is 6.49, creatinine 0.8 as of 03/25/2023, no lab draw today Objective - Vital Signs Vital signs: Vital Signs Temp 98.0 F 03/27/23 07:34 Pulse 70 03/27/23 12:08 Resp 16 03/27/23 07:34 BP 155/81 03/27/23 07:34 Pulse Ox 95 03/27/23 07:34 FiO2 Intake & Output 03/26/23 03/27/23 03/27/23 18:59 06:59 18:59 Intake Total 830 225 Output Total 750 350 750 Balance 80 -125 -750 Intake: Oral 830 225 Output: Urine 700 350 750 Stool 50 Other: Voiding Method External Catheter External Catheter External Catheter - Exam GENERAL DESCRIPTION: Elderly male lying in bed in no distress RESPIRATORY SYSTEM: Unlabored breathing , decreased breath sounds at bases HEART: S1 S2 regular rate and rhythm ,no loud murmurs ABDOMEN: Soft , no tenderness EXTREMITIES: Bilateral legs swelling redness slightly decreased - Labs CBC & Chem 7: 03/25/23 05:46 03/25/23 05:46 Assessment and Plan (1) Bilateral lower leg cellulitis Current Visit: No Status: Acute Code(s): L03.116 - CELLULITIS OF LEFT LOWER LIMB; L03.115 - CELLULITIS OF RIGHT LOWER LIMB SNOMED Code(s): 964406170 Plan: 1patient with bilateral lower extremity cellulitis in this patient with diffuse swelling and redness likely streptococcal disease clinically doubt gram-negative or MRSA infection. 2patient did have some clinical improvement and will continue cefazolin 3 g every 8 hours along with Manpreet wrap to both legs to keep the swelling down and plan to finish therapy with oral Keflex Dictation was produced using [employer] software. please excuse any grammatical, word or spelling errors. Time with Patient: Less than 30
[2023-03-27] MEDS: LOSARTAN 50 MG TAB PO SCH (20:26)
[2023-03-28] MEDS: ceFAZolin 3 GM in SODIUM CHLORIDE 0.9% 100 ML IVPB SCH ×2 (00:23→10:16)
[2023-03-28] MEDS: oxyCODONE-APAP 10-325MG 1 EACH TAB PO PRN ×3 (00:47→12:31)
[2023-03-28 08:44] VITALS: BP 143/81; RESP 20; TEMP 97.6
[2023-03-28] MEDS: IPRATROPIUM-ALBUTEROL 3 ML NEB INHALATION SCH ×2 (09:01→12:14)
[2023-03-28] MEDS: SYMBICORT 80-4.5 MCG INHALER INHALATION SCH (09:02)
[2023-03-28 09:06] VITALS: PULSE 72
[2023-03-28] MEDS: CYANOCOBALAMIN 500 MCG TAB PO SCH (09:27)
[2023-03-28] MEDS: TORSEMIDE 20 MG TAB PO SCH (09:27)
[2023-03-28] MEDS: FAMOTIDINE 20 MG TAB PO SCH (09:27)
[2023-03-28] MEDS: METOPROLOL SUCCINATE (ER) 50 MG TAB.ER.24H PO SCH (09:27)
[2023-03-28] MEDS: ISOSORBIDE MONONITRATE ER 60 MG TAB.ER.24H PO SCH (09:27)
[2023-03-28] MEDS: SPIRONOLACTONE 25 MG TAB PO SCH (09:28)
[2023-03-28] MEDS: ASPIRIN 325 MG TAB PO SCH (09:28)
[2023-03-28] MEDS: CLOPIDOGREL 75 MG TAB PO SCH (09:28)
[2023-03-28] MEDS: SENNOSIDES-DOCUSATE SODIUM 1 EACH TAB PO SCH (09:28)
[2023-03-28] MEDS: CHOLECALCIFEROL 25 MCG (1000 IU) TABLET PO SCH (09:28)
[2023-03-28] MEDS: DOCUSATE 100 MG CAP PO SCH (09:28)
[2023-03-28] MEDS: LACTULOSE 20 GM/30 ML CUP PO PRN (09:29)
[2023-03-28] MEDS: ENOXAPARIN 40 MG/0.4 ML SYRINGE SQ SCH (10:21)
--- NOTE | 2023-03-28 12:10 | P.PN ---
Subjective Progress Note Date: 03/28/23 Principal diagnosis: Bilateral leg cellulitis Patient is a 67-year-old male with multiple comorbidities presenting to the hospital for evaluation of feeling weak and dizzy increasing swelling redness to bilateral lower extremity and the patient has been diagnosed with b ilateral lower extremity cellulitis. On today's evaluation that is 03/28/2023, the patient continues to be afebrile , the patient is breathing comfortably on 3 L nasal cannula oxygen, the patient denies any shortness of breath, the patient denies any chest pain or cough, patient denies abdominal pain and no nausea/vomiting or diarrhea , the patient pain to bilateral lower extremity has decreased in intensity Patient did have a white count is 6.49, creatinine 0.8 as of 03/25/2023, no lab draw today Objective - Vital Signs Vital signs: Vital Signs Temp 97.6 F 03/28/23 07:15 Pulse 72 03/28/23 09:13 Resp 20 03/28/23 08:00 BP 143/81 03/28/23 07:15 Pulse Ox 98 03/28/23 07:15 FiO2 Intake & Output 03/27/23 03/28/23 03/28/23 18:59 06:59 18:59 Intake Total 118 118 Output Total 1150 350 Balance -1032 -350 118 Intake: Oral 118 118 Output: Urine 1150 350 Other: Voiding Method External Catheter External Catheter Toilet Urinal # Voids 3 # Bowel Movements 2 - Exam GENERAL DESCRIPTION: Elderly male lying in bed in no distress RESPIRATORY SYSTEM: Unlabored breathing , decreased breath sounds at bases HEART: S1 S2 regular rate and rhythm ,no loud murmurs ABDOMEN: Soft , no tenderness EXTREMITIES: Bilateral legs swelling redness slightly decreased - Labs CBC & Chem 7: 03/25/23 05:46 03/25/23 05:46 Assessment and Plan (1) Bilateral lower leg cellulitis Current Visit: No Status: Acute Code(s): L03.116 - CELLULITIS OF LEFT LOWER LIMB; L03.115 - CELLULITIS OF RIGHT LOWER LIMB SNOMED Code(s): 565037508 Plan: 1patient with bilateral lower extremity cellulitis in this patient with diffuse swelling and redness likely streptococcal disease clinically doubt gram-negative or MRSA infection. 2patient did have clinical improvement as for his lower extremity cellulitis, plan is to finish therapy with oral Keflex prescription was sent to the pharmacy along with Manpreet wrap to both legs to keep the swelling down to prevent recurrent cellulitis, discussed with admitting physician Dictation was produced using [employer] dictation software. please excuse any grammatical, word or spelling errors. Time with Patient: Less than 30
--- NOTE | 2023-03-28 22:13 | P.DS ---
Providers Date of admission: 03/24/23 11:52 Expected date of discharge: 03/28/23 Attending physician: Stevo Winn Consults: 03/23/23 12:46 Consult Physician Routine Consulting Provider: Casie Smith Consult Reason/Comments: cellulitis LE Do you want consulting provider notified?: Yes Primary care physician: [place] Min [facility] Course: Chief Complaint: Leg pain, chest pain This is a 67-year-old patient of Dr. Min. Chronic stable medical conditions include coronary artery disease with stent, hypertension, hyperlipidemia, obstructive sleep apnea, colonic diverticulosis, arthritis, chronic lumbar pain at L2 to L5, recurrent fractures, AICD. Chronic hypoxic respiratory failure on 2 L oxygen at home, morbid obesity, obesity hypoventilation syndrome chronic congestive heart failure from diastolic dysfunction EF 50-55%. Colostomy bag. COPD Patient now presents with increasing burning sensation in both lower extremities. He thinks it to become more red): Proximal in the right. He has chronic lower extremity swelling and redness. And venous stasis. He also has developed some chest pain. No shortness of breath. No fever no chills. 03/26/2023 Patient still with bilateral leg cellulitis, improving slowly and gradually Her medicines on cefazolin [employer] recommended to continue with the current cardiac medication and they signed off the case 03/27/2023 Patient continued to improve slowly and gradually. No new complaints. His bilateral leg swelling improving gradually Continue with IV cefazolin March 28: I assumed care of the patient today. Patient event. Pain well controlled. Cellulitis much better. Discussed 90. Discharged on Keflex for 7 days. Also on Demadex. Discussed with patient. Past medical history: COPD in an ex-smoker, CHF from diastolic 50-55%, obesity hypoventilation syndrome, coronary artery disease with stent, hyperlipidemia, hypertension, AICD, chronic low back pain L2 to L5 as chronic fractures, morbid obesity, home oxygen 2 L, and right rotator cuff Social history: Lives alone . Smokes about half a pack a day.. No alcohol. Physical examination: VITAL SIGNS: 97.6, 61, 20, 143/81, 98% on 3 L GENERAL: BMI 55.9, declining bed, comfortable EYES: Pupils equal. Conjunctiva normal. HEENT: External appearance of nose and ears normal, oral cavity grossly normal. NECK: JVD unable to assess; masses not palpable. HEART: Heart sounds muffled, edema. LUNGS: Respiratory rate increased, decreased breath sound. EXTREMITY: Area. of Redness above the ankle to below the knee. Edema. Chronic venous stasis changes. ABDOMEN: Soft, nontender, colostomy bag , liver spleen not palpable. PSYCH: Alert and oriented x3; mood and affect anxious INVESTIGATIONS, reviewed in the clinical context: March 25: White count 6.4 hemoglobin 13.1 potassium 4.5 creatinine 0.8 March 23: White count 6.1 hemoglobin 14.9 platelets 168 sodium 140 potassium 3.9 BUN 18 creatinine 0.74 Troponin I less than 0.0123 Procalcitonin 0.06 Chest x-ray film personally reviewed by me-normal sinus rhythm. Nonspecific T- wave changes. Chest x-ray film personally reviewed by me-some cardiomegaly. Questionable venous prominence Assessment and plan: -Possible acute bilateral lower extremity cellulitis predisposed by lower external edema and essentially venous insufficiency: Better IV Unasyn. Discharge on Keflex 100 mg every 6 for 7 days ID following -COPD in a current smoker, Resume home inhalers -Chronic bilateral lower, venous insufficiency Manpreet wrap -Chronic nicotine dependence, cigarette smoker Nicotine patch - peripheral neuropathy -Colostomy bag -Chronic congestive heart failure from diastolic dysfunction EF 50-55% Demadex 20 mg a day. Aldactone. Fluid restriction -Obesity hypoventilation syndrome -Coronary artery disease with stent Plavix. Toprol-XL -Hyperlipidemia -Essential hypertension Cozaar 50 mg daily at bedtime. Imdur ER 60 mg daily. Toprol-XL 50 mg day. -AICD -Chronic low back pain from L2 to L5 osteoarthritis with chronic fractures -Morbid obesity BMI 59.9 Weight loss measures -Chronic hypoxic respiratory failure , secondary to underlying COPD on 2 L oxygen at home -Chronic medical debility uses a motorized wheelchair Disposition: Home Plan - Discharge Summary Discharge Rx Participant: No New Discharge Prescriptions: New Torsemide [Demadex] 20 mg PO DAILY #30 tab Psyllium Husk 100% [Metamucil Packet] 6 gm PO DAILY #30 packet Cephalexin [Keflex] 500 mg PO Q6HR 7 Days #30 cap Continue Isosorbide Mononitrate ER [Imdur] 60 mg PO DAILY Metoprolol Succinate [Toprol XL] 50 mg PO DAILY Clopidogrel [Plavix] 75 mg PO DAILY Losartan [Cozaar] 50 mg PO HS Folic Acid 0.4 mg PO DAILY Sennosides/Docusate Sodium [Senna Plus 8.6-50 mg Tablet] 1 tab PO BID Ipratropium-Albuterol Nebulize [Duoneb 0.5 mg-3 mg/3 ml Soln] 3 ml INHALATION RT-TID Lactulose 20 gm PO DAILY PRN PRN Reason: Constipation Spironolactone [Aldactone] 25 mg PO DAILY #20 tab Famotidine [Pepcid] 20 mg PO BID Doxycycline Hyclate 100 mg PO BID Cholecalciferol (Vitamin D3) [Vitamin D3 (3000 Iu)] 75 mcg PO DAILY Albuterol Inhaler [Ventolin Hfa Inhaler] 1 - 2 puff INHALATION RT-Q6H PRN PRN Reason: Shortness Of Breath oxyCODONE HCL/ACETAMINOPHEN [Percocet 10-325 mg] 1 tab PO Q6HR PRN PRN Reason: Pain Cyanocobalamin (Vitamin B-12) [Vitamin B-12] 1,000 mcg PO DAILY Budesonide/Formoterol Fumarate [Symbicort 80-4.5 Mcg Inhaler] 1 puff INHALATION RT-BID Diclofenac Sodium Gel [Voltaren 1% Gel] 2 gm TOPICAL QID PRN gm PRN Reason: pain SILVER sulfADIAZINE CREAM [Silvadene Cream] 1 applic TOPICAL DAILY Aspirin 325 mg PO DAILY Changed Nystatin 100,000 Unit/gm Powd [Mycostatin Powder] 1 gm TOPICAL BID #60 each Discontinued Furosemide [Lasix] 40 mg PO DAILY #30 tab Discharge Medication List Isosorbide Mononitrate ER [Imdur] 60 mg PO DAILY 04/25/17 [History] Metoprolol Succinate [Toprol XL] 50 mg PO DAILY 02/14/19 [History] Clopidogrel [Plavix] 75 mg PO DAILY 03/20/19 [History] Albuterol Inhaler [Ventolin Hfa Inhaler] 1 - 2 puff INHALATION RT-Q6H PRN 02/07/23 [History] Cyanocobalamin (Vitamin B-12) [Vitamin B-12] 1,000 mcg PO DAILY 02/07/23 [History] Folic Acid 0.4 mg PO DAILY 02/07/23 [History] Losartan [Cozaar] 50 mg PO HS 02/07/23 [History] Sennosides/Docusate Sodium [Senna Plus 8.6-50 mg Tablet] 1 tab PO BID 02/07/23 [History] oxyCODONE HCL/ACETAMINOPHEN [Percocet 10-325 mg] 1 tab PO Q6HR PRN 02/07/23 [History] Budesonide/Formoterol Fumarate [Symbicort 80-4.5 Mcg Inhaler] 1 puff INHALATION RT-BID 03/03/23 [History] Ipratropium-Albuterol Nebulize [Duoneb 0.5 mg-3 mg/3 ml Soln] 3 ml INHALATION RT-TID 03/03/23 [History] Lactulose 20 gm PO DAILY PRN 03/03/23 [History] Diclofenac Sodium Gel [Voltaren 1% Gel] 2 gm TOPICAL QID PRN gm 03/07/23 [Rx] Spironolactone [Aldactone] 25 mg PO DAILY #20 tab 03/07/23 [Rx] Aspirin 325 mg PO DAILY 03/23/23 [History] Cholecalciferol (Vitamin D3) [Vitamin D3 (3000 Iu)] 75 mcg PO DAILY 03/23/23 [History] Doxycycline Hyclate 100 mg PO BID 03/23/23 [History] Famotidine [Pepcid] 20 mg PO BID 03/23/23 [History] SILVER sulfADIAZINE CREAM [Silvadene Cream] 1 applic TOPICAL DAILY 03/23/23 [History] Cephalexin [Keflex] 500 mg PO Q6HR 7 Days #30 cap 03/28/23 [Rx] Nystatin 100,000 Unit/gm Powd [Mycostatin Powder] 1 gm TOPICAL BID #60 each 1 [Rx] Psyllium Husk 100% [Metamucil Packet] 6 gm PO DAILY #30 packet 03/28/23 [Rx] Torsemide [Demadex] 20 mg PO DAILY #30 tab 03/28/23 [Rx] Follow up Appointment(s)/Referral(s): Home Health,[facility] [NON-STAFF] - 1 Week Boston Min MD [Primary Care Provider] - 1-2 days Patient Instructions/Handouts: Chest Pain (DC), Cellulitis (ED) Activity/Diet/Wound Care/Special Instructions: manpreet wraps abx per dr cole FOLLOW UP DIRECTED, SOONER IF WORSENING PROBLEMS, OR CONCERNS.
== END 2023-03-28 14:42 | disposition home health service (06) | DRG 603 ==
LOC: EC 09:57 → 6NMEDSUR 11:43 → OBSVTOIN 03-24 11:52
PROVIDERS: ADMIT Hospitalist; ATTEND Hospitalist
DX: L03.116 Cellulitis of left lower limb (principal); E66.2 Morbid (severe) obesity with alveolar hypoventilation; Z68.43 Body mass index [BMI] 50.0-59.9, adult; J96.11 Chronic respiratory failure with hypoxia; I50.32 Chronic diastolic (congestive) heart failure; J44.1 Chronic obstructive pulmonary disease with (acute) exacerbation; L03.115 Cellulitis of right lower limb; I25.10 Atherosclerotic heart disease of native coronary artery without angina pectoris; R07.9 Chest pain, unspecified; I87.2 Venous insufficiency (chronic) (peripheral); G62.9 Polyneuropathy, unspecified; I11.0 Hypertensive heart disease with heart failure; G89.29 Other chronic pain; M54.50 Low back pain, unspecified; M47.816 Spondylosis without myelopathy or radiculopathy, lumbar region; R53.81 Other malaise; E78.5 Hyperlipidemia, unspecified; F17.210 Nicotine dependence, cigarettes, uncomplicated; I16.0 Hypertensive urgency; I87.8 Other specified disorders of veins; I89.0 Lymphedema, not elsewhere classified; K57.30 Diverticulosis of large intestine without perforation or abscess without bleeding; K59.00 Constipation, unspecified; M84.68XD Pathological fracture in other disease, other site, subsequent encounter for fracture with routine healing; Z99.81 Dependence on supplemental oxygen; Z95.810 Presence of automatic (implantable) cardiac defibrillator; Z95.5 Presence of coronary angioplasty implant and graft; Z93.3 Colostomy status; Z91.199 Patient's noncompliance with other medical treatment and regimen due to unspecified reason; Z86.73 Personal history of transient ischemic attack (TIA), and cerebral infarction without residual deficits; Z79.899 Other long term (current) drug therapy; Z79.82 Long term (current) use of aspirin; Z79.51 Long term (current) use of inhaled steroids; Z79.02 Long term (current) use of antithrombotics/antiplatelets; Z71.3 Dietary counseling and surveillance; I25.2 Old myocardial infarction
CPT/HCPCS: 36415; 71046; 80048; 80053; 83735; 83880; 84145; 84484; 85025; 85610; 85730; 87636; 93005; 93306; 94640; 96374; 99285

== ENCOUNTER → 2023-10-26 | Outpatient (CLI) | payer MEDICARE ==
[2023-10-26 08:49] LABS: African American GFR (CKD) >90 (>60 ml/min/1.73 sqM); Blood Urea Nitrogen 14 mg/dL (9-20); Non-African American GFR(CKD) >90 (>60 ml/min/1.73 sqM)
--- NOTE | 2023-10-26 10:36 | CT ---
EXAMINATION TYPE: CT abdomen pelvis wo/w con DATE OF EXAM: 10/26/2023 COMPARISON: 01/03/2020 HISTORY: 68-year-old male EPIGASTRIC PAIN. R93.5 abnormal US K83.8 DISEASES OF BILIARY TRACT TECHNIQUE: Contiguous axial scanning of the abdomen and pelvis before and after administration of 100 ml Isovue 300 IV contrast. Delayed images through the kidneys and coronal/sagittal reconstructions performed. CT DLP: 5876.1 mGycm Automated exposure control for dose reduction was used. FINDINGS: Right ventricular pacer lead noted. Heart upper limits of normal in size without pericardial effusion . Strandy atelectasis in the lower lungs. No pleural effusion. Progressive intrahepatic biliary ductal dilatation. The hepatic duct is now dilated up to 2.2 cm vers us 1.8 cm in 2020. Trace pneumobilia in the nondependent left liver lobe redemonstrated. The appearan ce of a 1.3 cm filling defect in the lower bile duct. Subtle contour nodularity anterior left liver lobe margin may reflect cirrhosis. Portal venous system is patent. Adrenal glands, spleen, and pancreas otherwise no gross abnormality. A renal cortical cyst on either side measuring 1.1 cm on the right and 3.2 cm on the left. Symmetric uptake and excretion of contrast from both kidneys. Some scattered prominent retroperitoneal lymph nodes measuring up to 1.2 cm remain unchanged from 0 suggesting a chronic reactive/post inflammatory etiology. No dilated small bowel, free fluid, or free air. Scattered mild stool. There is redemonstrated left lower quadrant sigmoid colostomy with a sigmoid di verticulosis but no pericolonic inflammatory change. Brock's pouch noted. Some circumferential rect al wall thickening is unchanged from 2020, likely chronic finding. Redemonstrated rectus diastases of the 12.8 cm wide with some anterior bulging of small bowel and tra nsverse colon loops. Bladder partially distended. Prostate gland estimated to measure 5.5 cm wide. No abnormal fluid colle ction in the pelvis or pelvic lymphadenopathy. Bones: Advanced spondylotic changes throughout the lumbar spine along with Baastrup's disease, osteop enia, and dish within the visualized lower thoracic spine. At least moderate degenerative change of b oth hips. IMPRESSION: 1. PROGRESSIVE INTRAHEPATIC AND EXTRAHEPATIC BILIARY DUCTAL DILATATION. TRACE PNEUMOBILIA IS REDEMONS TRATED WELL. THE HEPATIC DUCT IS NOW DILATED UP TO 2.2 CM VERSUS 1.8 CM IN 2020. 2. A 1.3 CM SOFT TISSUE FILLING DEFECT IN THE LOWER BILE DUCT COULD REPRESENT A NONCALCIFIED STONE OR POLYPOID LESION. ERCP CLINICALLY INDICATED. 3. SOME CONTOUR NODULARITY ALONG THE ANTERIOR LEFT LIVER LOBE MAY REFLECT EARLY DEVELOPING CIRRHOSIS. CLINICALLY CORRELATE. 4. INCIDENTAL: REDEMONSTRATED LEFT LOWER QUADRANT SIGMOID COLOSTOMY WITH BROCK'S POUCH. SIGMOID DIV ERTICULOSIS. RECTUS DIASTASES REDEMONSTRATED.
== END | disposition home or self-care (01) ==
LOC: RADCTMAIN 07:49
PROVIDERS: ATTEND Family Medicine
DX: K57.30 Diverticulosis of large intestine without perforation or abscess without bleeding (principal); R93.5 Abnormal findings on diagnostic imaging of other abdominal regions, including retroperitoneum; K83.8 Other specified diseases of biliary tract; Z93.3 Colostomy status
CPT/HCPCS: 82565; 84520; 74178; 36415; Q9967

== ENCOUNTER 2024-11-24 20:22 | Inpatient (IN) | payer MEDICARE ==
--- NOTE | 2024-11-24 20:27 | ED ---
SOB HPI - General Stated Complaint: YUMIKO Time Seen by Provider: 11/24/24 20:23 Source: RN notes reviewed, old records reviewed Mode of arrival: EMS Limitations: no limitations, altered mental status, physical limitation - History of Present Illness Initial Comments: This is a 69 male to the ER for severe dyspnea and shortness of breath significant work of breathing on arrival to the ER will be placed on BiPAP secondary to significant paradoxical respirations, lower extremity edema inflammation and likely cellulitis secondary to chronic venous stasis. Patient's main complaint today is back pain and shortness of breath MD Complaint: shortness of breath, cough, anxiety -: unknown Radiation: back Severity scale (1-10): 7 Quality: aching Consistency: constant Improves With: nothing Worsens With: nothing Known History Of: COPD, congestive heart failure Context: recent URI, anxiety, recent illness Associated Symptoms: chest pain, cough, sputum production Treatments Prior to Arrival: oxygen - Related Data Home Medications Medication Instructions Recorded Confirmed Clopidogrel [Plavix] 75 mg PO DAILY 03/20/19 11/25/24 Sennosides/Docusate Sodium [Senna 1 tab PO BID 02/07/23 11/25/24 Plus 8.6-50 mg Tablet] oxyCODONE HCL/ACETAMINOPHEN 1 tab PO Q6HR PRN 02/07/23 11/25/24 [Percocet 10-325 mg] Budesonide/Formoterol Fumarate 2 puff INHALATION RT-BID 03/03/23 11/25/24 [Symbicort 80-4.5 Mcg Inhaler] Ipratropium-Albuterol Nebulize 3 ml INHALATION RT-QID 03/03/23 11/25/24 [Duoneb 0.5 mg-3 mg/3 ml Soln] SILVER sulfADIAZINE CREAM 1 applic TOPICAL DAILY PRN 03/23/23 11/25/24 [Silvadene Cream] Apixaban [Eliquis] 5 mg PO BID 11/25/24 11/25/24 Aspirin EC [Ecotrin Low Dose] 81 mg PO DAILY 11/25/24 11/25/24 Atorvastatin [Lipitor] 40 mg PO HS 11/25/24 11/25/24 Ciclopirox Olamine Cream [Ciclodan] 1 applic TOPICAL BID 11/25/24 11/25/24 Isosorbide Mononitrate ER [Imdur] 30 mg PO PC-LUNCH 11/25/24 11/25/24 Losartan [Cozaar] 25 mg PO HS 11/25/24 11/25/24 Metoprolol Tartrate [Lopressor] 25 mg PO TID 11/25/24 11/25/24 Pantoprazole Sodium [Protonix] 40 mg PO AC-BRKFST 11/25/24 11/25/24 Tamsulosin [Flomax] 0.4 mg PO DAILY 11/25/24 11/25/24 dilTIAZem HCL 60 mg PO Q8H 11/25/24 11/25/24 Previous Rx's Medication Instructions Recorded Diclofenac Sodium Gel [Voltaren 1% 2 gm TOPICAL QID PRN gm 03/07/23 Gel] Amiodarone [Cordarone] 200 mg PO DAILY #0 12/03/24 Furosemide [Lasix] 40 mg PO BID #0 12/03/24 Nicotine 14Mg/24Hr Patch [Habitrol] 1 patch TRANSDERM DAILY #30 patch 12/03/24 Piperacillin-Tazobactam [Zosyn] 4.5 gm IVPB Q8HR #42 each 12/03/24 predniSONE 10 mg PO DAILY #30 tab 12/03/24 Allergies Allergy/AdvReac Type Severity Reaction Status Date / Time No Known Allergies Allergy Verified 11/25/24 12:46 Review of Systems ROS Statement: Those systems with pertinent positive or pertinent negative responses have been documented in the HPI. ROS Other: All systems not noted in ROS Statement are negative. Past Medical History Past Medical History: Coronary Artery Disease (CAD), Chest Pain / Angina, COPD, CVA/TIA, Hyperlipidemia, Hypertension, Myocardial Infarction (HI), Osteoarthritis (OA), Respiratory Disorder, Sleep Apnea/CPAP/BIPAP Additional Past Medical History / Comment(s): obesity, obesity hypoventilation syndrome, suspected CHF and cor pulmonale, previous history of defibrillator placement, CVA in 2004, chronic back pain secondary to DDD and spinal canal stenosis, history of vertebral fracture L2 through L5, chronic lower extremity edema, diverticular disease, L knee fx in past and torn R rotator cuff, cellulitis, hospitalization for gallbladder complications Last Myocardial Infarction Date:: 2011 History of Any Multi-Drug Resistant Organisms: None Reported Past Surgical History: Bowel Resection, Cholecystectomy, Heart Catheterization With Stent, Hernia Repair, Pacemaker Additional Past Surgical History / Comment(s): PTCA with stent (4 total), 04/05/13 [employer] pacemaker, 1990' umbilical hernia repair, colonoscopy, circumcision, R eye surgery for strabismus, gallbladder stents One removed from HF on 03/19, Colostomy with open wounds. Past Anesthesia/Blood Transfusion Reactions: No Reported Reaction Date of Last Stent Placement:: 2012 Type of Cardiac Device: Permanent Pacemaker Device Placement Date:: 04/05/13 Past Psychological History: No Psychological Hx Reported Smoking Status: Current some day smoker Past Alcohol Use History: None Reported Past Drug Use History: None Reported - Past Family History Father Family Medical History: Musculoskeletal Disorder, Neurologic Disorder Additional Family Medical History / Comment(s): Father had parkinson's dx and at age 84 yrs. Mother Family Medical History: Myocardial Infarction (HI) Additional Family Medical History / Comment(s): Mother had 3 vessel CABG. She of a massive HI at the age of 53 yrs. General Exam General appearance: alert, in no apparent distress Head exam: Present: atraumatic, normocephalic, normal inspection Eye exam: Present: normal appearance, PERRL, EOMI. Absent: scleral icterus, conjunctival injection, periorbital swelling ENT exam: Present: normal exam, mucous membranes moist Neck exam: Present: normal inspection. Absent: tenderness, meningismus, ly mphadenopathy Respiratory exam: Present: normal lung sounds bilaterally. Absent: respiratory distress, wheezes, rales, rhonchi, stridor Cardiovascular Exam: Present: regular rate, normal rhythm, normal heart sounds. Absent: systolic murmur, diastolic murmur, rubs, gallop, clicks GI/Abdominal exam: Present: soft, normal bowel sounds. Absent: distended, tenderness, guarding, rebound, rigid Extremities exam: Present: normal inspection, full ROM, normal capillary refill. Absent: tenderness, pedal edema, joint swelling, calf tenderness Back exam: Present: normal inspection Neurological exam: Present: alert, oriented X3, CN II-XII intact Psychiatric exam: Present: normal affect, normal mood Skin exam: Present: warm, dry, intact, normal color. Absent: rash Course Vital Signs 11/24/24 11/24/24 11/24/24 20:31 20:45 21:00 Temperature 99.0 F Pulse Rate 95 94 96 Respiratory 28 H 24 Rate Blood Pressure 180/85 128/93 O2 Sat by Pulse 95 99 Oximetry Fraction of 40 Inspired Oxygen (FIO2) 11/24/24 11/24/24 11/24/24 21:07 21:12 21:55 Temperature Pulse Rate 91 90 Respiratory 24 Rate Blood Pressure O2 Sat by Pulse Oximetry Fraction of Inspired Oxygen (FIO2) 11/24/24 11/24/24 11/25/24 22:07 22:58 00:00 Temperature Pulse Rate 90 93 89 Respiratory 16 16 Rate Blood Pressure 117/70 143/87 O2 Sat by Pulse 98 97 Oximetry Fraction of Inspired Oxygen (FIO2) 11/25/24 11/25/24 11/25/24 00:09 00:19 02:00 Temperature Pulse Rate 90 91 88 Respiratory 16 Rate Blood Pressure 152/83 O2 Sat by Pulse 95 Oximetry Fraction of 40 Inspired Oxygen (FIO2) 11/25/24 11/25/24 11/25/24 04:00 04:11 04:22 Temperature Pulse Rate 92 91 89 Respiratory 16 Rate Blood Pressure 129/78 O2 Sat by Pulse 98 Oximetry Fraction of 40 Inspired Oxygen (FIO2) 11/25/24 11/25/24 11/25/24 06:54 07:47 08:54 Temperature Pulse Rate 87 87 Respiratory 18 16 Rate Blood Pressure 156/91 146/84 O2 Sat by Pulse 98 94 L Oximetry Fraction of 40 Inspired Oxygen (FIO2) 11/25/24 11/25/24 11/25/24 09:01 09:16 10:45 Temperature Pulse Rate 87 88 67 Respiratory 20 21 20 Rate Blood Pressure 140/115 O2 Sat by Pulse 98 Oximetry Fraction of Inspired Oxygen (FIO2) 11/25/24 11/25/24 11/25/24 10:56 11:28 11:31 Temperature Pulse Rate 93 93 Respiratory 20 20 Rate Blood Pressure O2 Sat by Pulse 97 Oximetry Fraction of 40 Inspired Oxygen (FIO2) 11/25/24 11/25/24 11/25/24 11:43 12:00 12:54 Temperature Pulse Rate 90 94 95 Respiratory 20 22 20 Rate Blood Pressure 118/100 127/85 O2 Sat by Pulse 97 97 Oximetry Fraction of Inspired Oxygen (FIO2) 11/25/24 11/25/24 11/25/24 13:00 15:00 15:15 Temperature Pulse Rate 94 87 Respiratory 97 H 18 Rate Blood Pressure 127/86 133/64 O2 Sat by Pulse 98 98 Oximetry Fraction of 40 Inspired Oxygen (FIO2) 11/25/24 11/25/24 11/25/24 15:17 15:35 16:00 Temperature Pulse Rate 85 88 92 Respiratory 18 20 20 Rate Blood Pressure 149/76 O2 Sat by Pulse 99 Oximetry Fraction of Inspired Oxygen (FIO2) - Reevaluation(s) Reevaluation #1: 11/24/24 21:31 Medical records reviewed Reevaluation #2: 11/24/24 21:31 Patient symptoms improving on BiPAP Reevaluation #3: 11/24/24 21:31 Patient informed of results questions answered Reevaluation #4: Was pt. sent in by a medical professional or institution (, AGUILA, PIANO TECHNICIAN, urgent care, hospital, or halfway...) When possible be specific @ -no Did you speak to anyone other than the patient for history (EMS, parent, family, police, friend...)? What history was obtained from this source @ -no Did you review nursing and triage notes (agree or disagree)? Why? @ -agree Are old charts reviewed (outside hosp., previous admission, EMS record, old EKG, old radiological studies, urgent care reports/EKG's, halfway records)? Report findings @ -yes Differential Diagnosis (chest pain, altered mental status, abdominal pain women, abdominal pain men, vaginal bleeding, weakness, fever, dyspnea, syncope, headache, dizziness, GI bleed, back pain, seizure, CVA, palpatations, mental health, musculoskeletal)? @ -prior EKG interpreted by me (3pts min.). @ -yes X-rays interpreted by me (1pt min.). @ -yes positive for CHF CT interpreted by me (1pt min.). @ -no U/S interpreted by me (1pt. min.). @ -no What testing was considered but not performed or refused? (CT, X-rays, U/S, labs)? Why? @ -none What meds were considered but not given or refused? Why? @ -none Did you discuss the management of the patient with other professionals (professionals i.e. , AGUILA, PIANO TECHNICIAN, lab, RT, psych nurse, social services assistant, fractionating still operator, teacher, correctional officer lieutenant, hospice case manager)? Give summary @ -no Was smoking cessation discussed for >3mins.? @ -no Was critical care preformed (if so, how long)? @ -yes31 Were there social determinants of health that impacted care today? How? (Homelessness, low income, unemployed, alcoholism, drug addiction, transportation, low edu. Level, literacy, decrease access to med. care, skilled nursing, rehab)? @ -none Was there de-escalation of care discussed even if they declined (Discuss DNR or withdrawal of care, Hospice)? DNR status @ -no What co-morbidities impacted this encounter? (DM, HTN, Smoking, COPD, CAD, Cancer, CVA, ARF, Chemo, Hep., AIDS, mental health diagnosis, sleep apnea, morbid obesity)? @ -none Was patient admitted / discharged? Hospital course, mention meds given and route, prescriptions, significant lab abnormalities, going to OR and other pertinent info. @ - 69 male will be admitted for acute respiratory failure bilateral lower extremity cellulitis pain control back pain chest pain, patient is in respiratory failure on BiPAP likely related to COPD today, no CHF on x-ray Admitted Undiagnosed new problem with uncertain prognosis? @ -no Drug Therapy requiring intensive monitoring for toxicity (Heparin, Nitro, Insulin, Cardizem)? @ -no Were any procedures done? @ -no Diagnosis/symptom? @ -Respiratory failure BiPAP COPD and CHF with lower extremity cellulitis Acute, or Chronic, or Acute on Chronic? @ -Acute Uncomplicated (without systemic symptoms) or Complicated (systemic symptoms)? @ -Complicated Side effects of treatment? @ -no Exacerbation, Progression, or Severe Exacerbation? @ -exacerbation Poses a threat to life or bodily function? How? (Chest pain, USA, HI, pneumonia, PE, COPD, DKA, ARF, appy, cholecystitis, CVA, Diverticulitis, Homicidal, Suicidal, threat to staff... and all critical care pts) @ -yes respiratory failure Reevaluation #5: Differential Dyspnea: Coronary syndrome, arrhythmia, tamponade, asthma, COPD, pulmonary embolism, pneumonia, pneumothorax, pulmonary effusion, anaphylaxis, diabetic ketoacidosis, flailed chest, pulmonary contusion, diaphragmatic rupture, anemia, neuromuscular, this is not meant to be an all-inclusive list. - Consultations Consultation #1: Spoke with sound who agrees to admit this patient Medical Decision Making - Medical Decision Making 69 male will be admitted for acute respiratory failure bilateral lower extremity cellulitis pain control back pain chest pain, patient is in respiratory failure on BiPAP likely related to COPD today, no CHF on x-ray - Lab Data Result diagrams: 11/29/24 06:48 11/28/24 11:15 Lab Results 11/24/24 11/24/24 11/24/24 Range/Units 20:53 20:53 20:53 WBC 9.34 (4.50-10.00) 10*3/uL RBC 3.67 L (4.40-5.60) 10*6/uL Hgb 11.1 L (13.0-17.0) g/dL Hct 35.2 L (39.6-50.0) % MCV 95.9 (80.0-97.0) fL MCH 30.2 (27.0-32.0) pg MCHC 31.5 L (32.0-37.0) g/dL Plt Count 222 (140-440) 10*3/uL MPV 10.2 (9.5-12.2) fL Immature Gran % (Auto) 0.7 % Neutrophils % 79.5 % Lymphocytes % 10.7 % Monocytes % 8.8 % Eosinophils % 0.1 % Basophils % 0.2 % Immature Gran # 0.07 H (0.00-0.04) 10*3/uL Neutrophils # 7.42 (1.80-7.70) 10*3/uL Lymphocytes # 1.00 (0.90-5.00) 10*3/uL Monocytes # 0.82 (0.20-1.00) 10*3/uL Eosinophils # 0.01 L (0.04-0.35) 10*3/uL Basophils # 0.02 (0.00-0.10) 10*3/uL PT 11.3 (10.0-12.5) sec INR 1.0 (<1.2) APTT 27.3 (22.0-30.0) sec Sodium 134 L (137-145) mmol/L Potassium 4.1 (3.5-5.1) mmol/L Chloride 87 L (98-107) mmol/L Carbon Dioxide 40 H (22-30) mmol/L Anion Gap 7 mmol/L BUN 19 (9-20) mg/dL Creatinine 0.91 (0.66-1.25) mg/dL Est GFR (CKD-EPI)AfAm >90 (>60 ml/min/1.73 sqM) Est GFR (CKD-EPI)NonAf 86 (>60 ml/min/1.73 sqM) Glucose 111 H (74-99) mg/dL Plasma Lactic Acid Hernán (0.7-2.0) mmol/L Calcium 9.0 (8.4-10.2) mg/dL Magnesium 1.6 (1.6-2.3) mg/dL Total Bilirubin 0.8 (0.2-1.3) mg/dL AST 20 (17-59) U/L ALT 14 (4-49) U/L Alkaline Phosphatase 63 (38-126) U/L Troponin I (0.000-0.034) ng/mL NT-Pro-B Natriuret Pep 411 pg/mL Total Protein 6.6 (6.3-8.2) g/dL Albumin 3.6 (3.5-5.0) g/dL Influenza Type A (PCR) (Not Detectd) Influenza Type B (PCR) (Not Detectd) RSV (PCR) (Not Detectd) SARS-CoV-2 (PCR) (Not Detectd) 11/24/24 11/24/24 11/24/24 Range/Units 20:53 20:53 21:07 WBC (4.50-10.00) 10*3/uL RBC (4.40-5.60) 10*6/uL Hgb (13.0-17.0) g/dL Hct (39.6-50.0) % MCV (80.0-97.0) fL MCH (27.0-32.0) pg MCHC (32.0-37.0) g/dL Plt Count (140-440) 10*3/uL MPV (9.5-12.2) fL Immature Gran % (Auto) % Neutrophils % % Lymphocytes % % Monocytes % % Eosinophils % % Basophils % % Immature Gran # (0.00-0.04) 10*3/uL Neutrophils # (1.80-7.70) 10*3/uL Lymphocytes # (0.90-5.00) 10*3/uL Monocytes # (0.20-1.00) 10*3/uL Eosinophils # (0.04-0.35) 10*3/uL Basophils # (0.00-0.10) 10*3/uL PT (10.0-12.5) sec INR (<1.2) APTT (22.0-30.0) sec Sodium (137-145) mmol/L Potassium (3.5-5.1) mmol/L Chloride (98-107) mmol/L Carbon Dioxide (22-30) mmol/L Anion Gap mmol/L BUN (9-20) mg/dL Creatinine (0.66-1.25) mg/dL Est GFR (CKD-EPI)AfAm (>60 ml/min/1.73 sqM) Est GFR (CKD-EPI)NonAf (>60 ml/min/1.73 sqM) Glucose (74-99) mg/dL Plasma Lactic Acid Hernán 0.9 (0.7-2.0) mmol/L Calcium (8.4-10.2) mg/dL Magnesium (1.6-2.3) mg/dL Total Bilirubin (0.2-1.3) mg/dL AST (17-59) U/L ALT (4-49) U/L Alkaline Phosphatase (38-126) U/L Troponin I <0.012 (0.000-0.034) ng/mL NT-Pro-B Natriuret Pep pg/mL Total Protein (6.3-8.2) g/dL Albumin (3.5-5.0) g/dL Influenza Type A (PCR) Not Detected (Not Detectd) Influenza Type B (PCR) Not Detected (Not Detectd) RSV (PCR) Not Detected (Not Detectd) SARS-CoV-2 (PCR) Not Detected (Not Detectd) - EKG Data -: EKG Interpreted by Me (EKG is A-fib 99 QRS 139 QTc 399) - Radiology Data Radiology results: report reviewed (Chest x-ray is negative for acute disease), image reviewed Critical Care Time Critical Care Time: Yes Total Critical Care Time: 31 Disposition Clinical Impression: Congestive heart failure, Acute exacerbation of chronic low back pain, Obstructive sleep apnea, COPD exacerbation, COPD exacerbation, Bilateral lower leg cellulitis Disposition: ADMITTED IP TO THIS HOSP Condition: Fair Is patient prescribed a controlled substance at d/c from ED?: No Time of Disposition: 22:00
[2024-11-24] MEDS: IPRATROPIUM-ALBUTEROL 3 ML NEB INHALATION STA ×2 (20:43→21:55)
[2024-11-24] MEDS: methylPREDNISolone SOD SUCCI 125 MG/2 ML VIAL IV STA (20:46)
[2024-11-24] MEDS: SODIUM CHLORIDE 0.9% 1,000 ML IV ONE (20:46)
--- NOTE | 2024-11-24 21:13 | XR ---
EXAMINATION TYPE: XR chest 1V portable DATE OF EXAM: 11/24/2024 9:04 PM COMPARISON: Chest radiographs from 03/23/2023 TECHNIQUE: XR chest 1V portable Portable AP radiograph of the chest. CLINICAL INDICATION:Male, 69 years old with history of difficulty breathing; FINDINGS: Lungs/Pleura: There is no evidence of pleural effusion, focal consolidation, or pneumothorax. Chroni c elevation of the right hemidiaphragm. Pulmonary vascularity: Unremarkable. Heart/mediastinum: Cardiomediastinal silhouette is enlarged and stable. Two lead cardiac conduction d evice overlying the left hemithorax with lead tips projecting over the right ventricle and right atri um. Musculoskeletal: No acute osseous pathology. IMPRESSION: Chronic changes without acute pulmonary process. No significant change from prior. [facility], , 11/24/2024 9:11 PM
[2024-11-24] MEDS ORDERED: NALOXONE 0.4 MG/ML 1 ML VIAL IV PRN (21:27)
[2024-11-24] MEDS ORDERED: ONDANSETRON 4 MG/2 ML VIAL IVP PRN (21:27)
[2024-11-24 21:28] LABS: INR 1.0 (<1.2); Partial Thromboplastin Time 27.3 sec (22.0-30.0); Prothrombin Time 11.3 sec (10.0-12.5)
[2024-11-24 21:30] LABS: ALT 14 U/L (4-49); AST 20 U/L (17-59); African American GFR (CKD) >90 (>60 ml/min/1.73 sqM); Albumin 3.6 g/dL (3.5-5.0); Alkaline Phosphatase 63 U/L (38-126); Anion Gap 7 mmol/L; Blood Urea Nitrogen 19 mg/dL (9-20); Calcium 9.0 mg/dL (8.4-10.2); Chloride 87 mmol/L (98-107); Glucose 111 mg/dL (74-99); Magnesium 1.6 mg/dL (1.6-2.3); Non-African American GFR(CKD) 86 (>60 ml/min/1.73 sqM); Potassium 4.1 mmol/L (3.5-5.1); Sodium 134 mmol/L (137-145); Total Protein 6.6 g/dL (6.3-8.2)
[2024-11-24 21:38] LABS: NT-Pro-B-Type Natriuretic Pept 411 pg/mL
[2024-11-24 21:39] LABS: Carbon Dioxide 40 mmol/L (22-30)
[2024-11-24 21:49] LABS: RSV Not Detected (Not Detectd)
[2024-11-24 22:10] LABS: Basophils # (A) 0.02 10*3/uL (0.00-0.10); Basophils % (A) 0.2 %; Eosinophils # (A) 0.01 10*3/uL (0.04-0.35); Eosinophils % (A) 0.1 %; HCT 35.2 % (39.6-50.0); HGB 11.1 g/dL (13.0-17.0); Lymphocytes # (A) 1.00 10*3/uL (0.90-5.00); Lymphocytes % (A) 10.7 %; MCH 30.2 pg (27.0-32.0); MCHC 31.5 g/dL (32.0-37.0); MCV 95.9 fL (80.0-97.0); Monocytes # (A) 0.82 10*3/uL (0.20-1.00); Monocytes % (A) 8.8 %; Neutrophils # (A) 7.42 10*3/uL (1.80-7.70); Neutrophils % (A) 79.5 %; Platelet Count 222 10*3/uL (140-440); RBC 3.67 10*6/uL (4.40-5.60); RDW 13.7 % (11.5-14.5); WBC 9.34 10*3/uL (4.50-10.00)
[2024-11-24] MEDS: SODIUM CHLORIDE 0.9% 1,000 ML IV SCH (23:03)
[2024-11-25] MEDS: ALBUTEROL NEBULIZED 2.5 MG/3 ML INHALATION SCH (00:09)
[2024-11-25] MEDS: MORPHINE SULFATE 4 MG/ML SYRINGE IV PRN (01:45)
--- NOTE | 2024-11-25 03:57 | P.HPIM ---
History of Present Illness H&P Date: 11/25/24 69-year-old male with COPD hypertension Patient coming in to the hospital with shortness of breath is unable to provide any meaningful history at this time is dependent on BiPAP however per ED docume ntation patient came in and was having paradoxical breathing complaining of shortness of breath and tightness he was immediately placed on BiPAP with some relief chest x-ray showed no acute cardiopulmonary process. No further history obtainable at this time review of systems Pertinent positives as noted in HPI. All other systems were reviewed and are negative on exam Constitutional: Patient laying down comfortably in bed on BiPAP machine however he does not participate with history taking or exam Eyes: Anicteric sclerae, moist conjunctiva, Pupils equal round reactive to light ENMT: NC/AT Lungs: Diminished breath sounds throughout Clear to percussion Dependent on BiPAP Cardiovascular: Heart regular in rate and rhythm, No murmurs, gallops, or rubs +2 edema bilateral legs Abdominal: Soft Nontender, no guarding, rebound or rigidity Abdomen moving with respiration Normoactive bowel sounds Extremities: Chronic skin changes with dermatitis of bilateral legs and possible lymphedema Pedal pulses unable to assess due to pedal edema however capillary refill immediate and warm to the touch bilaterally Radial pulses intact and symmetrical No calf tenderness Psychiatric: Awake does not participate in exam does not answer any of my questions Neuro unable to perform patient does not cooperate with physical exam Past Medical History Past Medical History: Coronary Artery Disease (CAD), Chest Pain / Angina, COPD, CVA/TIA, Hyperlipidemia, Hypertension, Myocardial Infarction ([place]), Os teoarthritis (OA), Respiratory Disorder, Sleep Apnea/CPAP/BIPAP Additional Past Medical History / Comment(s): obesity, obesity hypoventilation syndrome, suspected CHF and cor pulmonale, previous history of defibrillator placement, CVA in 2004, chronic back pain secondary to DDD and spinal canal stenosis, history of vertebral fracture L2 through L5, chronic lower extremity edema, diverticular disease, L knee fx in past and torn R rotator cuff, cellulitis, hospitalization for gallbladder complications Last Myocardial Infarction Date:: 2011 History of Any Multi-Drug Resistant Organisms: None Reported Past Surgical History: Bowel Resection, Cholecystectomy, Heart Catheterization With Stent, Hernia Repair, Pacemaker Additional Past Surgical History / Comment(s): PTCA with stent (4 total), 11/7/13 [employer] pacemaker, umbilical hernia repair, colonosco py, circumcision, R eye surgery for strabismus, gallbladder stents One removed from HF on 03/19, Colostomy with open wounds. Past Anesthesia/Blood Transfusion Reactions: No Reported Reaction Date of Last Stent Placement:: 2012 Type of Cardiac Device: Permanent Pacemaker Device Placement Date:: 04/05/13 Past Psychological History: No Psychological Hx Reported Smoking Status: Current some day smoker Past Alcohol Use History: None Reported Past Drug Use History: None Reported - Past Family History Father Family Medical History: Musculoskeletal Disorder, Neurologic Disorder Additional Family Medical History / Comment(s): Father had parkinson's dx and at age 84 yrs. Mother Family Medical History: Myocardial Infarction ([place]) Additional Family Medical History / Comment(s): Mother had 3 vessel CABG. She of a massive [place] at the age of 53 yrs. Medications and Allergies Home Medications Medication Instructions Recorded Confirmed Type Isosorbide Mononitrate ER [Imdur] 60 mg PO DAILY 04/25/17 03/23/23 History Metoprolol Succinate [Toprol XL] 50 mg PO DAILY 02/14/19 03/23/23 History Clopidogrel [Plavix] 75 mg PO DAILY 03/20/19 03/23/23 History Albuterol Inhaler [Ventolin Hfa 1 - 2 puff INHALATION RT-Q6H PRN 02/07/23 03/23/23 History Inhaler] Cyanocobalamin (Vitamin B-12) 1,000 mcg PO DAILY 02/07/23 03/23/23 History [Vitamin B-12] Folic Acid 0.4 mg PO DAILY 02/07/23 03/23/23 History Losartan [Cozaar] 50 mg PO HS 02/07/23 03/23/23 History Sennosides/Docusate Sodium [Senna 1 tab PO BID 02/07/23 03/23/23 History Plus 8.6-50 mg Tablet] oxyCODONE HCL/ACETAMINOPHEN 1 tab PO Q6HR PRN 02/07/23 03/23/23 History [Percocet 10-325 mg] Budesonide/Formoterol Fumarate 1 puff INHALATION RT-BID 03/03/23 03/23/23 History [Symbicort 80-4.5 Mcg Inhaler] Ipratropium-Albuterol Nebulize 3 ml INHALATION RT-TID 03/03/23 03/23/23 History [Duoneb 0.5 mg-3 mg/3 ml Soln] Lactulose 20 gm PO DAILY PRN 03/03/23 03/23/23 History Diclofenac Sodium Gel [Voltaren 1% 2 gm TOPICAL QID PRN gm 03/07/23 03/23/23 Rx Gel] Spironolactone [Aldactone] 25 mg PO DAILY #20 tab 03/07/23 03/23/23 Rx Aspirin 325 mg PO DAILY 03/23/23 03/23/23 History Cholecalciferol (Vitamin D3) 75 mcg PO DAILY 03/23/23 03/23/23 History [Vitamin D3 (3000 Iu)] Doxycycline Hyclate 100 mg PO BID 03/23/23 03/23/23 History Famotidine [Pepcid] 20 mg PO BID 03/23/23 03/23/23 History SILVER sulfADIAZINE CREAM 1 applic TOPICAL DAILY 03/23/23 03/23/23 History [Silvadene Cream] Cephalexin [Keflex] 500 mg PO Q6HR 7 Days #30 cap 03/28/23 Rx Nystatin 100,000 Unit/gm Powd 1 gm TOPICAL BID #60 each 03/28/23 Rx [Mycostatin Powder] Psyllium Husk 100% [Metamucil 6 gm PO DAILY #30 packet 03/28/23 Rx Packet] Torsemide [Demadex] 20 mg PO DAILY #30 tab 03/28/23 Rx Allergies Allergy/AdvReac Type Severity Reaction Status Date / Time No Known Allergies Allergy Verified 11/24/24 20:36 Physical Exam Vitals: Vital Signs Temp Pulse Resp BP Pulse Ox FiO2 11/25/24 00:19 91 11/25/24 00:09 90 40 11/24/24 22:58 93 16 117/70 98 11/24/24 22:07 90 11/24/24 21:55 90 11/24/24 21:12 24 11/24/24 21:07 91 11/24/24 21:00 96 24 128/93 99 11/24/24 20:45 94 40 11/24/24 20:31 99.0 F 95 28 H 180/85 95 Intake and Output 11/24/24 11/24/24 11/25/24 14:59 22:59 06:59 Other: Weight 161.388 kg Results CBC & Chem 7: 11/24/24 20:53 11/24/24 20:53 Labs: Abnormal Lab Results - Last 24 Hours (Table) 11/24/24 11/24/24 Range/Units 20:53 20:53 RBC 3.67 L (4.40-5.60) 10*6/uL Hgb 11.1 L (13.0-17.0) g/dL Hct 35.2 L (39.6-50.0) % MCHC 31.5 L (32.0-37.0) g/dL Immature Gran # 0.07 H (0.00-0.04) 10*3/uL Eosinophils # 0.01 L (0.04-0.35) 10*3/uL Sodium 134 L (137-145) mmol/L Chloride 87 L (98-107) mmol/L Carbon Dioxide 40 H (22-30) mmol/L Glucose 111 H (74-99) mg/dL Assessment and Plan Assessment: 69-year-old male with COPD hypertension coming in with shortness of breath discussed case with ED doctor and accepted admission for acute COPD exacerbation with anticipated length stay more than 2 midnights Acute hypoxic respiratory failure Acute COPD exacerbation Chest x-ray no acute cardiopulmonary process Patient placed on BiPAP DuoNebs scheduled and as needed Symbicort twice daily Methylprednisolone 60 mg every 6 hours IV push BiPAP as needed Pulmonary consult Bilateral chronic leg dermatitis with lymphedema Patient was started on Rocephin in the ED for possible cellulitis Follow-up cultures Mild anemia No reported GI bleeding Hemoglobin 11 continue to monitor Verify home medications Blood work overall unremarkable showing White count 9 Sodium 134 potassium 4.1 BUN 19 creatinine 0.9 Troponin negative Acute respiratory viral panel negative for COVID influenza and RSV Full code DVT prophylaxis Lovenox 40 mg subcu daily
[2024-11-25 03:59] LABS: Basophils # (A) 0.01 10*3/uL (0.00-0.10); Basophils % (A) 0.1 %; Eosinophils # (A) 0.00 10*3/uL (0.04-0.35); Eosinophils % (A) 0.0 %; HCT 34.0 % (39.6-50.0); HGB 10.7 g/dL (13.0-17.0); Lymphocytes # (A) 0.53 10*3/uL (0.90-5.00); Lymphocytes % (A) 7.2 %; MCH 30.4 pg (27.0-32.0); MCHC 31.5 g/dL (32.0-37.0); MCV 96.6 fL (80.0-97.0); Monocytes # (A) 0.07 10*3/uL (0.20-1.00); Monocytes % (A) 1.0 %; Neutrophils # (A) 6.69 10*3/uL (1.80-7.70); Neutrophils % (A) 90.9 %; Platelet Count 200 10*3/uL (140-440); RBC 3.52 10*6/uL (4.40-5.60); RDW 13.6 % (11.5-14.5); WBC 7.36 10*3/uL (4.50-10.00)
[2024-11-25 04:14] LABS: ALT 13 U/L (4-49); AST 23 U/L (17-59); African American GFR (CKD) >90 (>60 ml/min/1.73 sqM); Albumin 3.1 g/dL (3.5-5.0); Alkaline Phosphatase 52 U/L (38-126); Anion Gap 5 mmol/L; Blood Urea Nitrogen 19 mg/dL (9-20); Calcium 9.0 mg/dL (8.4-10.2); Carbon Dioxide 40 mmol/L (22-30); Chloride 88 mmol/L (98-107); Glucose 106 mg/dL (74-99); Magnesium 1.6 mg/dL (1.6-2.3); Non-African American GFR(CKD) >90 (>60 ml/min/1.73 sqM); Potassium 4.2 mmol/L (3.5-5.1); Sodium 133 mmol/L (137-145); Total Protein 6.0 g/dL (6.3-8.2)
[2024-11-25] MEDS: FAMOTIDINE 20 MG TAB PO SCH (08:57)
[2024-11-25] MEDS: methylPREDNISolone SOD SUCCI 125 MG/2 ML VIAL IV SCH (08:57)
[2024-11-25] MEDS: SYMBICORT 80-4.5 MCG INHALER INHALATION SCH (08:59)
[2024-11-25] MEDS: ENOXAPARIN 40 MG/0.4 ML SYRINGE SQ SCH (10:10)
[2024-11-25] MEDS ORDERED: VANCOMYCIN IV PER PHARMACY 1 EACH MISC MISCELLANE PRN (10:52)
[2024-11-25] MEDS: VANCOMYCIN 2,250 MG in SODIUM CHLORIDE 0.9% 500 ML 500 ML IVPB SCH (12:50)
--- NOTE | 2024-11-25 18:09 | P.CNPUL ---
History of Present Illness Consult date: 11/25/24 Reason for consult: dyspnea History of present illness: This is a 69-year-old morbidly obese male patient, presented to the Emergency Department because of worsening shortness of breath the patient was unable to volunteer any significant history. The patient was found to be in acute SCALDER exacerbation. The patient is morbidly obese and has chronic edema lower extremities/lymphedema the patient has obvious cellulitis of the lower extremities bilaterally with chronic venous stasis. Immediately, the patient was placed on a BiPAP the patient remains on a BiPAP at a pressure of 12.5 cm of water with an FiO2 of 40%. He is calm and comfortable on the BiPAP and is generating a tidal volume of more than 400. His minute ventilation is around 12 L/min. Blood gases were not done. In the emergency, the patient was found to have a white cell count of 9.3 with a hemoglobin 11.1 and a platelet count of 222. Normal coagulation profile. Normal renal function with a BUN of 19 and a creatinine of 0.9. Serum bicarb was 40 consistent with chronic hypercapnic respiratory failure. proBNP level was 411. Troponins were negative. Viral screen was negative. The patient was initially started on IV Rocephin and I added vancomycin regarding cellulitis of lower extremities. The patient is on DuoNeb nebulizer treatments, IV Solu-Medrol and Lovenox for DVT prophylaxis. He is also on normal saline at rate of 75 cc an hour. He is normotensive. Current pulse ox is 99% and the above-mentioned BiPAP settings. Chest x-ray was also noted and the patient has no acute abnormalities. The patient has small lung volumes. No airspace disease. No consolidation. No pleural effusion. Comorbidities include morbid obesity, hypertension, hyperlipidemia, COPD and the patient is a chronic smoker. He also has obstructive sleep apnea/obesity hypov entilation syndrome. Previous history of CHF with previous history of AICD placement, stroke back in 2004 along with chronic difficult mobility and degenerative lumbar disc disease and vertebral fracture L2-L5 and mild canal stenosis. He is also known to have diverticulosis. He has undergone also previous bowel resection the patient has a colostomy in place which is currently functional. This was inserted back in 2018. The patient has had also previous hospitalizations for bilateral lower extremity cellulitis and the most recent hospitalization was in February 2023. Review of Systems ROS unobtainable: due to mental status Past Medical History Past Medical History: Coronary Artery Disease (CAD), Chest Pain / Angina, COPD, CVA/TIA, Hyperlipidemia, Hypertension, Myocardial Infarction ([place]), Osteoarthritis (OA), Respiratory Disorder, Sleep Apnea/CPAP/BIPAP Additional Past Medical History / Comment(s): obesity, obesity hypoventilation syndrome, suspected CHF and cor pulmonale, previous history of defibrillator placement, CVA in 2004, chronic back pain secondary to DDD and spinal canal stenosis, history of vertebral fracture L2 through L5, chronic lower extremity edema, diverticular disease, L knee fx in past and torn R rotator cuff, cellulitis, hospitalization for gallbladder complications Last Myocardial Infarction Date:: 2011 History of Any Multi-Drug Resistant Organisms: None Reported Past Surgical History: Bowel Resection, Cholecystectomy, Heart Catheterization With Stent, Hernia Repair, Pacemaker Additional Past Surgical History / Comment(s): PTCA with stent (4 total), 04/05/13 [employer] pacemaker, umbilical hernia repair, colonoscopy, circumcision, R eye surgery for strabismus, gallbladder stents One removed from HF on 03/19, Colostomy with open wounds. Past Anesthesia/Blood Transfusion Reactions: No Reported Reaction Date of Last Stent Placement:: 2012 Type of Cardiac Device: Permanent Pacemaker Device Placement Date:: 04/05/13 Past Psychological History: No Psychological Hx Reported Smoking Status: Current some day smoker Past Alcohol Use History: None Reported Past Drug Use History: None Reported - Past Family History Father Family Medical History: Musculoskeletal Disorder, Neurologic Disorder Additional Family Medical History / Comment(s): Father had parkinson's dx and at age 84 yrs. Mother Family Medical History: Myocardial Infarction ([place]) Additional Family Medical History / Comment(s): Mother had 3 vessel CABG. She of a massive [place] at the age of 53 yrs. Medications and Allergies Home Medications Medication Instructions Recorded Confirmed Type Clopidogrel [Plavix] 75 mg PO DAILY 03/20/19 11/25/24 History Sennosides/Docusate Sodium [Senna 1 tab PO BID 02/07/23 11/25/24 History Plus 8.6-50 mg Tablet] oxyCODONE HCL/ACETAMINOPHEN 1 tab PO Q6HR PRN 02/07/23 11/25/24 History [Percocet 10-325 mg] Budesonide/Formoterol Fumarate 2 puff INHALATION RT-BID 03/03/23 11/25/24 History [Symbicort 80-4.5 Mcg Inhaler] Ipratropium-Albuterol Nebulize 3 ml INHALATION RT-QID 03/03/23 11/25/24 History [Duoneb 0.5 mg-3 mg/3 ml Soln] Diclofenac Sodium Gel [Voltaren 1% 2 gm TOPICAL QID PRN gm 03/07/23 11/25/24 Rx Gel] SILVER sulfADIAZINE CREAM 1 applic TOPICAL DAILY PRN 03/23/23 11/25/24 History [Silvadene Cream] Amiodarone [Cordarone] 200 mg PO BID 11/25/24 11/25/24 History Apixaban [Eliquis] 5 mg PO BID 11/25/24 11/25/24 History Aspirin EC [Ecotrin Low Dose] 81 mg PO DAILY 11/25/24 11/25/24 History Atorvastatin [Lipitor] 40 mg PO HS 11/25/24 11/25/24 History Ciclopirox Olamine Cream [Ciclodan] 1 applic TOPICAL BID 11/25/24 11/25/24 History Doxycycline Hyclate 100 mg PO BID 11/25/24 11/25/24 History Furosemide [Lasix] 40 mg PO TID 11/25/24 11/25/24 History Isosorbide Mononitrate ER [Imdur] 30 mg PO PC-LUNCH 11/25/24 11/25/24 History Losartan [Cozaar] 25 mg PO HS 11/25/24 11/25/24 History Metoprolol Tartrate [Lopressor] 25 mg PO TID 11/25/24 11/25/24 History Pantoprazole Sodium [Protonix] 40 mg PO AC-[id number] 11/25/24 11/25/24 History Tamsulosin [Flomax] 0.4 mg PO DAILY 11/25/24 11/25/24 History dilTIAZem HCL 60 mg PO Q8H 11/25/24 11/25/24 History Allergies Allergy/AdvReac Type Severity Reaction Status Date / Time No Known Allergies Allergy Verified 11/25/24 12:46 Physical Exam Vitals: Vital Signs Temp Pulse Resp BP Pulse Ox FiO2 11/25/24 10:45 67 20 140/115 98 11/25/24 09:16 88 21 11/25/24 09:01 87 20 11/25/24 08:54 40 11/25/24 07:47 87 16 146/84 94 L 11/25/24 06:54 87 18 156/91 98 11/25/24 04:22 89 11/25/24 04:11 91 40 11/25/24 04:00 92 16 129/78 98 11/25/24 02:00 88 16 152/83 95 11/25/24 00:19 91 11/25/24 00:09 90 40 11/25/24 00:00 89 16 143/87 97 11/24/24 22:58 93 16 117/70 98 11/24/24 22:07 90 11/24/24 21:55 90 11/24/24 21:12 24 11/24/24 21:07 91 11/24/24 21:00 96 24 128/93 99 11/24/24 20:45 94 40 11/24/24 20:31 99.0 F 95 28 H 180/85 95 Intake and Output 11/24/24 11/25/24 11/25/24 22:59 06:59 14:59 Other: Weight 161.388 kg GENERAL EXAM: Diminished level of consciousness, 69-year-old, tolerating the BiP AP reasonably well. No significant respiratory distress. No use of accessory muscles of breathing. Morbidly obese.. HEAD: Normocephalic and atraumatic EYES: Normal reaction of pupils, equal size. NOSE: Clear with pink turbinates. THROAT: No erythema or exudates. Mallampati class IV with significant crowding of posterior pharynx NECK: No masses, no JVD. CHEST: No chest wall deformity. Implanted device left chest/AICD. The patient has diminished breath sounds bilaterally. LUNGS: Equal air entry with mild expiratory wheezes heard throughout. No crackles, rhonchi, focal dullness. CVS: S1 and S2 normal with no audible murmur, regular rhythm. No extra heart sounds ABDOMEN: Obese abdomen, colostomy within the left lower quadrant, old midline abdominal incision appears to be healed by secondary intention, no hepatosplenomegaly, active bowel sounds, no guarding or rigidity. SPINE: No scoliosis or deformity SKIN:Bilateral lower extremity chronic venous changes CENTRAL NERVOUS SYSTEM: No focal deficits, tone is normal in all 4 extremities. EXTREMITIES: Significant bilateral lower extremity lymphedema. Nog, or cyanosis. Peripheral pulses are intact. There is evidence of swelling and cellulitis of the lower extremities bilaterally. Results - Laboratory Findings CBC and BMP: 11/25/24 03:07 11/25/24 03:07 PT/INR, D-dimer PT 11.3 sec (10.0-12.5) 11/24/24 20:53 INR 1.0 (<1.2) 11/24/24 20:53 Abnormal lab findings: Abnormal Labs 11/24/24 11/24/24 11/25/24 20:53 20:53 03:07 RBC 3.67 L 3.52 L Hgb 11.1 L 10.7 L Hct 35.2 L 34.0 L MCHC 31.5 L 31.5 L Immature Gran # 0.07 H 0.06 H Lymphocytes # 0.53 L Monocytes # 0.07 L Eosinophils # 0.01 L 0.00 L Sodium 134 L Chloride 87 L Carbon Dioxide 40 H Creatinine Glucose 111 H Total Protein Albumin 11/25/24 03:07 RBC Hgb Hct MCHC Immature Gran # Lymphocytes # Monocytes # Eosinophils # Sodium 133 L Chloride 88 L Carbon Dioxide 40 H Creatinine 0.62 L Glucose 106 H Total Protein 6.0 L Albumin 3.1 L - Diagnostic Findings Chest x-ray: image reviewed Assessment and Plan Plan: Acute on chronic shortness of breath likely secondary to COPD exacerbation. The patient is actively bronchospastic and wheezy. At the same time, the patient has an underlying septic event related to cellulitis of the lower extremities contributing to his respiratory failure. Currently on BiPAP at a pressure of 12/5 with an FiO2 of 40%. Chest x-ray reveals no acute abnormalities. proBNP level is not elevated. White cell count is normal and the patient has no hemodynamic instability Morbid obesity COPD with chronic hypoxic/hypercapnic respiratory failure along with component of obstructive sleep apnea/obesity hypoventilation syndrome NARCISO/OHS with chronic hypercapnic respiratory failure and chronic metabolic alkalosis Chronic smoker Coronary artery disease with previous coronary intervention PCI and stenting x 4 History of ischemic cardiomyopathy and the patient has a pacer/AICD in place and the most recent echocardiogram from 2019 showed a preserved LV function History of CVA Hypertension Hyperlipidemia Chronic lower extremity lymphedema/chronic venous stasis with recurrent cellulitis and the patient has active signs of cellulitis at this point Previous history of bowel resection the patient has diverting colostomy History of degenerative lumbar disc disease with vertebral fracture L2-L5 and spinal canal stenosis degenerative arthritis History of diverticular disease Peripheral neuropathy Chronic medical debility and the patient uses a motorized wheelchair. He has chronic hypoxic respiratory failure maintained on oxygen 2 L/min nasal cannula Plan Keep the patient on a BiPAP for now, same settings obtain a blood gas DuoNeb nebulized treatments [id number] 4 times a day Chest x-ray is free of any acute pulmonary infiltrates IV Solu-Medrol 60 mg every 6 hours Normal Saint rate of 75 cc an hour Empiric antibiotic coverage with Rocephin and vancomycin Resume home medications Monitor mental status No need for ICU stay at this point unless his condition changes. The patient will be admitted to telemetry unit with close monitoring.
[2024-11-25] MEDS: LOSARTAN 25 MG TAB PO SCH (20:11)
[2024-11-25] MEDS: APIXABAN 5 MG TAB PO SCH (20:11)
[2024-11-25] MEDS: oxyCODONE-APAP 10-325MG 1 EACH TAB PO PRN (20:12)
[2024-11-25] MEDS: AMIODARONE 200 MG TAB PO SCH (20:12)
[2024-11-25] MEDS: SENNOSIDES-DOCUSATE SODIUM 1 EACH TAB PO SCH (20:14)
[2024-11-25] MEDS: ATORVASTATIN 40 MG TAB PO SCH (20:14)
[2024-11-25] MEDS ORDERED: LOSARTAN 50 MG TAB PO SCH (21:00)
[2024-11-25] MEDS: IPRATROPIUM-ALBUTEROL 3 ML NEB INHALATION SCH (21:07)
[2024-11-26] MEDS: METOPROLOL TARTRATE 25 MG TAB PO SCH (00:04)
[2024-11-26] MEDS: FUROSEMIDE 40 MG TAB PO SCH (00:04)
[2024-11-26] MEDS: DILTIAZEM ORAL 60 MG TAB PO SCH (00:05)
[2024-11-26] MEDS: PANTOPRAZOLE 40 MG TABLET PO SCH (06:15)
[2024-11-26 06:53] LABS: African American GFR (CKD) >90 (>60 ml/min/1.73 sqM); Blood Urea Nitrogen 21 mg/dL (9-20); Calcium 8.8 mg/dL (8.4-10.2); Chloride 95 mmol/L (98-107); Glucose 113 mg/dL (74-99); Non-African American GFR(CKD) >90 (>60 ml/min/1.73 sqM); Potassium 4.5 mmol/L (3.5-5.1); Sodium 136 mmol/L (137-145)
[2024-11-26 07:01] LABS: Anion Gap 4 mmol/L; Carbon Dioxide 37 mmol/L (22-30)
[2024-11-26] MEDS: TAMSULOSIN 0.4 MG CAP.ER.24H PO SCH (08:28)
[2024-11-26] MEDS: ASPIRIN 81 MG PO SCH (08:28)
[2024-11-26] MEDS: CLOPIDOGREL 75 MG TAB PO SCH (08:28)
[2024-11-26] MEDS ORDERED: ASPIRIN 325 MG TAB PO SCH (09:00)
[2024-11-26] MEDS ORDERED: TORSEMIDE 20 MG TAB PO SCH (09:00)
[2024-11-26] MEDS ORDERED: METOPROLOL SUCCINATE (ER) 50 MG TAB.ER.24H PO SCH (09:00)
[2024-11-26 09:55] LABS: Basophils # (A) 0.01 10*3/uL (0.00-0.10); Basophils % (A) 0.1 %; Eosinophils # (A) 0.00 10*3/uL (0.04-0.35); Eosinophils % (A) 0.0 %; HCT 36.5 % (39.6-50.0); HGB 11.3 g/dL (13.0-17.0); Lymphocytes # (A) 0.76 10*3/uL (0.90-5.00); Lymphocytes % (A) 9.0 %; MCH 30.4 pg (27.0-32.0); MCHC 31.0 g/dL (32.0-37.0); MCV 98.1 fL (80.0-97.0); Monocytes # (A) 0.20 10*3/uL (0.20-1.00); Monocytes % (A) 2.4 %; Neutrophils # (A) 7.41 10*3/uL (1.80-7.70); Neutrophils % (A) 87.9 %; Platelet Count 237 10*3/uL (140-440); RBC 3.72 10*6/uL (4.40-5.60); RDW 13.5 % (11.5-14.5); WBC 8.43 10*3/uL (4.50-10.00)
[2024-11-26] MEDS: ISOSORBIDE MONONITRATE ER 30 MG TAB.ER.24H PO SCH (12:37)
--- NOTE | 2024-11-26 16:06 | P.PN ---
Subjective Progress Note Date: 11/26/24 Hospital Course: 69-year-old male with past medical history of CHF, CAD with previous PCI, CVA, HTN, HLD, lymphedema, morbid obesity, chronic hypoxic respiratory failure on home oxygen, COPD, NARCISO, tobacco use disorder, who presented to the ER on 4 shortness of breath. Patient was unable to provide significant history on admission, was placed on BiPAP. Admitted for acute on chronic hypoxic r espiratory failure secondary to COPD exacerbation, started on IV steroids, breathing treatment, pulmonology consulted. Patient was also started on IV ceftriaxone and vancomycin for possible cellulitis. 11/26: Patient seen and examined at bedside, no acute events overnight, he is using BiPAP, earlier was placed on nasal cannula and was satting well, however, requested to be put back on BiPAP. Patient was using words during our conversation, appeared easily irritable. He is afebrile with labile normal blood pressure. Blood work showed normal WBC count, stable hemoglobin 11.3, normal platelet count, sodium improved to 136, potassium normal, bicarb down to 37, creatinine normal at 0.68. Plan is to wean from BiPAP to nasal cannula, discussed with patient, RN. He was found to have left heel wound, wound care consulted. Pertinent positives and negatives as discussed above, a complete review of systems was performed and all other systems are negative. Vitals Signs Reviewed. General: [nontoxic], [no distress], [appears at stated age], morbidly obese Derm: [warm], [dry] Head: [atraumatic], [normocephalic], [symmetric] Eyes: [EOMI], [no lid lag], [anicteric sclera] Mouth: [no lip lesion], [mucus membranes moist] Cardiovascular: [S1S2 reg], [no murmur] Lungs: [CTA bilateral], [no rhonchi, no rales] , [no accessory muscle use] Abdominal: [soft], [ nontender to palpation], [no guarding], [no appreciable organomegaly] Ext: [no gross muscle atrophy], [lymphedema, chronic wounds [no contractures] Neuro: [ CN II-XI grossly intact], [no focal neuro deficits] Psych: [Alert], [oriented], [appropriate affect] Assessment and Plan: Acute on chronic hypoxic respiratory failure secondary to COPD exacerbation - Pulmonology following, appreciate recommendations -Continue Symbicort 80/4.5 twice daily, DuoNeb 4 times daily scheduled, Solu- Medrol 60 IV every 6 hours -Wean off BiPAP as discussed -PT OT -discussed with RN Hyponatremia, improving: Continue normal saline at 75 cc/h Possible lower extremity cellulitis Left heel chronic wound -Continue ceftriaxone 2 g every 24 hours SOT 11/24, pharmacy to dose vancomycin SOT 11/25, MRSA swab ordered and pending, blood cultures pending, monitor BMP and CMP daily -Wound care consulted Paroxysmal A-fib: Continue Eliquis 5 twice daily, Cardizem 60 mg every 8 hours oral, Lopressor 25 mg p.o. 3 times daily CHF, not in acute exacerbation CAD - Continue aspirin 81 mg daily, Plavix 75 mg p.o. daily, patient is on triple therapy, needs to be readdressed with primary care physician, cardiology, continue Lasix 40 3 times daily, Imdur 30 daily, losartan 25 mg nightly, Lopressor as above BPH: Continue home Flomax 0.4 GERD: Continue home Protonix 40 daily Morbid obesity, recommend structured weight loss program DVT ppx: Eliquis Code status: Full code Anticipated discharge place: [] Anticipated discharge time: [] Objective - Vital Signs Vital signs: Vital Signs Temp 98 F 11/26/24 12:00 Pulse 88 11/26/24 12:31 Resp 18 11/26/24 12:00 BP 108/77 11/26/24 12:00 Pulse Ox 98 11/26/24 12:00 FiO2 40 11/26/24 09:37 Intake & Output 11/25/24 11/26/24 11/26/24 18:59 06:59 18:59 Intake Total 20 500 Output Total 1000 975 675 Balance -1000 -629 -201 Weight 161.388 kg 110 kg 110 kg Intake: IV 20 20 Invasive Line 2 20 20 Oral 480 Output: Urine 1000 975 675 Other: Voiding Method External Catheter Urinal # Voids 2 - Labs CBC & Chem 7: 11/26/24 06:12 11/26/24 06:12 Labs: Abnormal Lab Results - Last 24 Hours (Table) 11/26/24 11/26/24 Range/Units 06:12 06:12 RBC 3.72 L (4.40-5.60) 10*6/uL Hgb 11.3 L (13.0-17.0) g/dL Hct 36.5 L (39.6-50.0) % MCV 98.1 H (80.0-97.0) fL MCHC 31.0 L (32.0-37.0) g/dL Immature Gran # 0.05 H (0.00-0.04) 10*3/uL Lymphocytes # 0.76 L (0.90-5.00) 10*3/uL Eosinophils # 0.00 L (0.04-0.35) 10*3/uL Sodium 136 L (137-145) mmol/L Chloride 95 L (98-107) mmol/L Carbon Dioxide 37 H (22-30) mmol/L BUN 21 H (9-20) mg/dL Glucose 113 H (74-99) mg/dL Microbiology - Last 24 Hours (Table) 11/24/24 20:53 Blood Culture - Preliminary Blood
--- NOTE | 2024-11-26 17:33 | P.PN ---
Subjective Progress Note Date: 11/26/24 This is a 69-year-old morbidly obese male patient, presented to the Emergency Department because of worsening shortness of breath the patient was unable to volunteer any significant history. The patient was found to be in acute CROZE CUTTER exacerbation. The patient is morbidly obese and has chronic edema lower extremities/lymphedema the patient has obvious cellulitis of the lower extremities bilaterally with chronic venous stasis. Immediately, the patient was placed on a BiPAP the patient remains on a BiPAP at a pressure of 12.5 cm of water with an FiO2 of 40%. He is calm and comfortable on the BiPAP and is generating a tidal volume of more than 400. His minute ventilation is around 12 L/min. Blood gases were not done. In the emergency, the patient was found to have a white cell count of 9.3 with a hemoglobin 11.1 and a platelet count of 222. Normal coagulation profile. Normal renal function with a BUN of 19 and a creatinine of 0.9. Serum bicarb was 40 consistent with chronic hypercapnic r espiratory failure. proBNP level was 411. Troponins were negative. Viral screen was negative. The patient was initially started on IV Rocephin and I added vancomycin regarding cellulitis of lower extremities. The patient is on DuoNeb nebulizer treatments, IV Solu-Medrol and Lovenox for DVT prophylaxis. He is also on normal saline at rate of 75 cc an hour. He is normotensive. Current pulse ox is 99% and the above-mentioned BiPAP settings. Chest x-ray was also noted and the patient has no acute abnormalities. The patient has small lung volumes. No airspace disease. No consolidation. No pleural effusion. Comorbidities include morbid obesity, hypertension, hyperlipidemia, COPD and the patient is a chronic smoker. He also has obstructive sleep apnea/obesity hypoventilation syndrome. Previous history of CHF with previous history of AICD placement, stroke back in 2004 along with chronic difficult mobility and degenerative lumbar disc disease and vertebral fracture L2-L5 and mild canal stenosis. He is also known to have diverticulosis. He has undergone also previous bowel resection the patient has a colostomy in place which is currently functional. This was inserted back in 2018. The patient has had also previous hospitalizations for bilateral lower extremity cellulitis and the most recent hospitalization was in February 2023. The patient is seen today November 26, 2024 in follow-up on the selective care unit. He is currently sitting up in bed. Awake and alert no acute distress. Maintaining O2 saturations in the 90s on 4 L/min per nasal cannula. He is alternating with BiPAP 12/5 and 40% and wearing it at night. Blood culture pending. White count 8.4. Hemoglobin 11.3. Platelets 237. Sodium 136. Potassium 4.5. Bicarb 37. BUN 21. Creatinine 0.68. Glucose 113. He remains on DuoNeb inhalations, Symbicort, Solu-Medrol. Remains on oral diuretics. Ant ibiotics in the form of vancomycin and ceftriaxone. Objective - Vital Signs Vital signs: Vital Signs Temp 98.1 F 11/26/24 16:00 Pulse 84 11/26/24 16:31 Resp 18 11/26/24 16:00 BP 117/74 11/26/24 16:00 Pulse Ox 95 11/26/24 16:00 FiO2 40 11/26/24 09:37 Intake & Output 11/25/24 11/26/24 11/26/24 18:59 06:59 18:59 Intake Total 20 500 Output Total 1000 975 675 Balance -1000 -955 -175 Weight 161.388 kg 110 kg 110 kg Intake: IV 20 20 Invasive Line 2 20 20 Oral 480 Output: Urine 1000 975 675 Other: Voiding Method External Catheter Urinal # Voids 2 - Exam GENERAL EXAM: Alert, obese, 69-year-old male, resting in bed, on 4 L nasal cannula, fairly comfortable in no apparent distress. HEAD: Normocephalic. EYES: Normal reaction of pupils, equal size. NOSE: Clear with pink turbinates. THROAT: No erythema or exudates. NECK: No masses, no JVD. CHEST: No chest wall deformity. LUNGS: Equal air entry with no crackles, wheeze, rhonchi or dullness. CVS: S1 and S2 normal with no audible murmur, regular rhythm. ABDOMEN: No hepatosplenomegaly, normal bowel sounds, no guarding or rigidity. SPINE: No scoliosis or deformity SKIN: Cellulitis and chronic venous stasis of the lower extremities CENTRAL NERVOUS SYSTEM: No focal deficits, tone is normal in all 4 extremities. EXTREMITIES: There is 1-2+ peripheral edema. No clubbing, no cyanosis. Peripheral pulses are intact. - Labs CBC & Chem 7: 11/26/24 06:12 11/26/24 06:12 Labs: Abnormal Lab Results - Last 24 Hours (Table) 11/26/24 11/26/24 Range/Units 06:12 06:12 RBC 3.72 L (4.40-5.60) 10*6/uL Hgb 11.3 L (13.0-17.0) g/dL Hct 36.5 L (39.6-50.0) % MCV 98.1 H (80.0-97.0) fL MCHC 31.0 L (32.0-37.0) g/dL Immature Gran # 0.05 H (0.00-0.04) 10*3/uL Lymphocytes # 0.76 L (0.90-5.00) 10*3/uL Eosinophils # 0.00 L (0.04-0.35) 10*3/uL Sodium 136 L (137-145) mmol/L Chloride 95 L (98-107) mmol/L Carbon Dioxide 37 H (22-30) mmol/L BUN 21 H (9-20) mg/dL Glucose 113 H (74-99) mg/dL Microbiology - Last 24 Hours (Table) 11/24/24 20:53 Blood Culture - Preliminary Blood Assessment and Plan Assessment: Acute on chronic hypoxic respiratory failure likely secondary to COPD exacerbation. The patient is actively bronchospastic and wheezy. At the same time, the patient has an underlying septic event related to cellulitis of the lower extremities contributing to his respiratory failure. Currently on BiPAP at a pressure of 12/5 with an FiO2 of 40% alternating with oxygen at 4 L/min per nasal cannula. Chest x-ray reveals no acute abnormalities. proBNP level is not elevated. White cell count is normal and the patient has no hemodynamic instability Morbid obesity COPD with chronic hypoxic/hypercapnic respiratory failure along with component of obstructive sleep apnea/obesity hypoventilation syndrome NARCISO/OHS with chronic hypercapnic respiratory failure and chronic metabolic alkalosis Chronic smoker Coronary artery disease with previous coronary intervention PCI and stenting x 4 History of ischemic cardiomyopathy and the patient has a pacer/AICD in place and the most recent echocardiogram from 2019 showed a preserved LV function History of CVA Hypertension Hyperlipidemia Chronic lower extremity lymphedema/chronic venous stasis with recurrent cellulitis and the patient has active signs of cellulitis at this point Previous history of bowel resection the patient has diverting colostomy History of degenerative lumbar disc disease with vertebral fracture L2-L5 and spinal canal stenosis degenerative arthritis History of diverticular disease Peripheral neuropathy Chronic medical debility and the patient uses a motorized wheelchair. He has chronic hypoxic respiratory failure maintained on oxygen 2 L/min nasal cannula Plan: The patient was seen and evaluated Chest x-ray, labs and medications reviewed Continue DuoNeb inhalations Continue Symbicort Continue IV Solu-Medrol Remains on ceftriaxone Remains on vancomycin Remains on oral diuretics Home medications resumed Continue BiPAP support as needed Continue to titrate the FiO2 as tolerated We will continue to follow I have personally seen and examined the patient, performed the documentation and the assessment and plan as written. Number of minutes spent on the visit: 20 Dictation was produced using [employer] dictation software. Please excuse any grammatical, word or spelling errors.
[2024-11-27] MEDS: VANCOMYCIN 2,250 MG in SODIUM CHLORIDE 0.9% 500 ML 500 ML IVPB SCH (04:48)
[2024-11-27 07:55] LABS: Basophils # (A) 0.01 10*3/uL (0.00-0.10); Basophils % (A) 0.1 %; Eosinophils # (A) 0.00 10*3/uL (0.04-0.35); Eosinophils % (A) 0.0 %; HCT 36.5 % (39.6-50.0); HGB 11.2 g/dL (13.0-17.0); Lymphocytes # (A) 0.66 10*3/uL (0.90-5.00); Lymphocytes % (A) 6.7 %; MCH 30.3 pg (27.0-32.0); MCHC 30.7 g/dL (32.0-37.0); MCV 98.6 fL (80.0-97.0); Monocytes # (A) 0.24 10*3/uL (0.20-1.00); Monocytes % (A) 2.4 %; Neutrophils # (A) 8.93 10*3/uL (1.80-7.70); Neutrophils % (A) 90.2 %; Platelet Count 232 10*3/uL (140-440); RBC 3.70 10*6/uL (4.40-5.60); RDW 13.7 % (11.5-14.5); WBC 9.90 10*3/uL (4.50-10.00)
[2024-11-27] MEDS ORDERED: DEXTROSE 50% SYRINGE 50 ML IVP PRN ×2 (08:19)
[2024-11-27 11:42] LABS: African American GFR (CKD) >90 (>60 ml/min/1.73 sqM); Anion Gap 2 mmol/L; Blood Urea Nitrogen 31 mg/dL (9-20); Calcium 8.8 mg/dL (8.4-10.2); Carbon Dioxide 40 mmol/L (22-30); Chloride 98 mmol/L (98-107); Glucose 142 mg/dL (74-99); Non-African American GFR(CKD) 89 (>60 ml/min/1.73 sqM); Potassium 4.5 mmol/L (3.5-5.1); Sodium 140 mmol/L (137-145)
--- NOTE | 2024-11-27 12:06 | P.CONS ---
History of Present Illness - Reason for Consult Consult date: 11/27/24 wound care - History of Present Illness This is a 69-year-old patient being seen on 3 S. for nonhealing ulceration to the left heel. Patient has past medical history significant for coronary artery disease obesity CVA hyperlipidemia hypertension sleep apnea denies diabetes. Patient has a stage II possible stage III pressure ulcer to the left heel measuring approximately 5.5 x 0.3 cm with significant amount of slough and nonviable tissue present. No granulation seen to the wound bed. Wound edges are not attached to the wound base no tunneling or undermining noted. Review Of Systems: Constitutional: No fever, no chills, no night sweats. No weight change. No weakness, fatigue or lethargy. No daytime sleepiness. Integumentary:reports wounds, no lesions. No rash or pruritus. No unusual bruising. No change in hair or nails. Physical exam: General Appearance: Alert, cooperative, no distress, appears stated age. Skin: See HPI all other Skin color, texture, tugor normal, no rashes or lesions. Neurologic: Alert oriented x3 Assessment: 1. Stage II pressure ulcer left heel 2. Obesity 3. Neuropathy Plan: 1. Apply honey gel bordered foam Tuesday. Utilize heel protector for offloading. Left foot x-ray to rule out osteomyelitis. Consideration for surgical consult for possible surgical debridement and application of negative pressure wound VAC. Patient states that he is not able to come to the wound care center for treatment. He does follow with visiting physicians. Patient would benefit from advanced wound care and wound care center. Thank for the consultation any questions please contact the wound care center DNP note has been reviewed and discussed with Dr. Mcintyre and the impression and plan of care has been directed as dictated. Past Medical History Past Medical History: Coronary Artery Disease (CAD), Chest Pain / Angina, COPD, CVA/TIA, Hyperlipidemia, Hypertension, Myocardial Infarction (NV), Osteoarthri tis (OA), Respiratory Disorder, Sleep Apnea/CPAP/BIPAP Additional Past Medical History / Comment(s): obesity, obesity hypoventilation syndrome, suspected CHF and cor pulmonale, previous history of defibrillator placement, CVA in 2004, chronic back pain secondary to DDD and spinal canal stenosis, history of vertebral fracture L2 through L5, chronic lower extremity edema, diverticular disease, L knee fx in past and torn R rotator cuff, cellulitis, hospitalization for gallbladder complications Last Myocardial Infarction Date:: 2011 History of Any Multi-Drug Resistant Organisms: None Reported Past Surgical History: Bowel Resection, Cholecystectomy, Heart Catheterization With Stent, Hernia Repair, Pacemaker Additional Past Surgical History / Comment(s): PTCA with stent (4 total), 04/05/13 [employer] pacemaker, 1989' umbilical hernia repair, colonoscopy, circumcision, R eye surgery for strabismus, gallbladder stents One removed from HF on 03/19, Colostomy with open wounds. Past Anesthesia/Blood Transfusion Reactions: No Reported Reaction Date of Last Stent Placement:: 2012 Type of Cardiac Device: Permanent Pacemaker Device Placement Date:: 04/05/13 Past Psychological History: No Psychological Hx Reported Smoking Status: Current some day smoker Past Alcohol Use History: None Reported Past Drug Use History: None Reported - Past Family History Father Family Medical History: Musculoskeletal Disorder, Neurologic Disorder Additional Family Medical History / Comment(s): Father had parkinson's dx and at age 84 yrs. Mother Family Medical History: Myocardial Infarction (NV) Additional Family Medical History / Comment(s): Mother had 3 vessel CABG. She of a massive NV at the age of 53 yrs. Medications and Allergies Home Medications Medication Instructions Recorded Confirmed Type Clopidogrel [Plavix] 75 mg PO DAILY 03/20/19 11/25/24 History Sennosides/Docusate Sodium [Senna 1 tab PO BID 02/07/23 11/25/24 History Plus 8.6-50 mg Tablet] oxyCODONE HCL/ACETAMINOPHEN 1 tab PO Q6HR PRN 02/07/23 11/25/24 History [Percocet 10-325 mg] Budesonide/Formoterol Fumarate 2 puff INHALATION RT-BID 03/03/23 11/25/24 History [Symbicort 80-4.5 Mcg Inhaler] Ipratropium-Albuterol Nebulize 3 ml INHALATION RT-QID 03/03/23 11/25/24 History [Duoneb 0.5 mg-3 mg/3 ml Soln] Diclofenac Sodium Gel [Voltaren 1% 2 gm TOPICAL QID PRN gm 03/07/23 11/25/24 Rx Gel] SILVER sulfADIAZINE CREAM 1 applic TOPICAL DAILY PRN 03/23/23 11/25/24 History [Silvadene Cream] Amiodarone [Cordarone] 200 mg PO BID 11/25/24 11/25/24 History Apixaban [Eliquis] 5 mg PO BID 11/25/24 11/25/24 History Aspirin EC [Ecotrin Low Dose] 81 mg PO DAILY 11/25/24 11/25/24 History Atorvastatin [Lipitor] 40 mg PO HS 11/25/24 11/25/24 History Ciclopirox Olamine Cream [Ciclodan] 1 applic TOPICAL BID 11/25/24 11/25/24 History Doxycycline Hyclate 100 mg PO BID 11/25/24 11/25/24 History Furosemide [Lasix] 40 mg PO TID 11/25/24 11/25/24 History Isosorbide Mononitrate ER [Imdur] 30 mg PO PC-LUNCH 11/25/24 11/25/24 History Losartan [Cozaar] 25 mg PO HS 11/25/24 11/25/24 History Metoprolol Tartrate [Lopressor] 25 mg PO TID 11/25/24 11/25/24 History Pantoprazole Sodium [Protonix] 40 mg PO AC-[id number] 11/25/24 11/25/24 History Tamsulosin [Flomax] 0.4 mg PO DAILY 11/25/24 11/25/24 History dilTIAZem HCL 60 mg PO Q8H 11/25/24 11/25/24 History Allergies Allergy/AdvReac Type Severity Reaction Status Date / Time No Known Allergies Allergy Verified 11/25/24 12:46 Physical Exam Vitals: Vital Signs Temp Pulse Pulse Resp BP Pulse Ox FiO2 11/27/24 11:30 97.5 F L 76 20 158/91 94 L 11/27/24 09:23 84 11/27/24 09:04 84 40 11/27/24 07:50 98.3 F 20 158/91 40 11/27/24 04:00 97.3 F L 81 18 123/79 94 L 40 11/27/24 00:41 40 11/27/24 00:00 97.6 F 77 138/79 96 40 11/26/24 20:00 98.0 F 83 20 114/70 95 11/26/24 16:31 84 11/26/24 16:19 84 11/26/24 16:00 98.1 F 84 18 117/74 95 11/26/24 12:31 88 11/26/24 12:21 88 Intake and Output 11/26/24 11/27/24 11/27/24 22:59 06:59 14:59 Intake Total 250 10 128 Output Total 825 200 750 Balance -266 -805 -876 Intake: IV 10 10 10 Invasive Line 2 10 10 10 Oral 240 118 Output: Urine 825 200 750 Other: Voiding Method Urinal Urinal # Voids 2 1 Weight 104 kg Results CBC & Chem 7: 11/27/24 06:51 11/27/24 11:01 Labs: Abnormal Lab Results - Last 24 Hours (Table) 11/27/24 11/27/24 Range/Units 06:51 11:01 RBC 3.70 L (4.40-5.60) 10*6/uL Hgb 11.2 L (13.0-17.0) g/dL Hct 36.5 L (39.6-50.0) % MCV 98.6 H (80.0-97.0) fL MCHC 30.7 L (32.0-37.0) g/dL Immature Gran # 0.06 H (0.00-0.04) 10*3/uL Neutrophils # 8.93 H (1.80-7.70) 10*3/uL Lymphocytes # 0.66 L (0.90-5.00) 10*3/uL Eosinophils # 0.00 L (0.04-0.35) 10*3/uL Carbon Dioxide 40 H (22-30) mmol/L BUN 31 H (9-20) mg/dL Glucose 142 H (74-99) mg/dL Microbiology - Last 24 Hours (Table) 11/24/24 20:53 Blood Culture - Preliminary Blood Assessment and Plan (1) Stage II pressure ulcer of left heel Current Visit: Yes Status: Acute Code(s): L89.622 - PRESSURE ULCER OF LEFT HEEL, STAGE 2 SNOMED Code(s): 15604944967396 (2) Neuropathy Current Visit: Yes Status: Acute Code(s): G62.9 - POLYNEUROPATHY, UNSPECIFIED SNOMED Code(s): 660141934 (3) Obesity Current Visit: No Status: Chronic Code(s): E66.9 - OBESITY, UNSPECIFIED SNOMED Code(s): 007781377
--- NOTE | 2024-11-27 12:29 | P.PN ---
Subjective Progress Note Date: 11/27/24 This is a 69-year-old morbidly obese male patient, presented to the Emergency Department because of worsening shortness of breath the patient was unable to volunteer any significant history. 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 The patient is morbidly obese and has chronic edema lower extremities/lymphedema the patient has obvious cellulitis of the lower extremities bilaterally with chronic venous stasis. Immediately, the patient was placed on a BiPAP the patient remains on a BiPAP at a pressure of 12.5 cm of water with an FiO2 of 40%. He is calm and comfortable on the BiPAP and is generating a tidal volume of more than 400. His minute ventilation is around 12 L/min. Blood gases were not done. In the emergency, the patient was found to have a white cell count of 9.3 with a hemoglobin 11.1 and a platelet count of 222. Normal coagulation profile. Normal renal function with a BUN of 19 and a creatinine of 0.9. Serum bicarb was 40 consistent with chronic hypercapnic r espiratory failure. proBNP level was 411. Troponins were negative. Viral screen was negative. The patient was initially started on IV Rocephin and I added vancomycin regarding cellulitis of lower extremities. The patient is on DuoNeb nebulizer treatments, IV Solu-Medrol and Lovenox for DVT prophylaxis. He is also on normal saline at rate of 75 cc an hour. He is normotensive. Current pulse ox is 99% and the above-mentioned BiPAP settings. Chest x-ray was also noted and the patient has no acute abnormalities. The patient has small lung volumes. No airspace disease. No consolidation. No pleural effusion. Comorbidities include morbid obesity, hypertension, hyperlipidemia, COPD and the patient is a chronic smoker. He also has obstructive sleep apnea/obesity hypoventilation syndrome. Previous history of CHF with previous history of AICD placement, stroke back in 2004 along with chronic difficult mobility and degenerative lumbar disc disease and vertebral fracture L2-L5 and mild canal stenosis. He is also known to have diverticulosis. He has undergone also previous bowel resection the patient has a colostomy in place which is currently functional. This was inserted back in 2018. The patient has had also previous hospitalizations for bilateral lower extremity cellulitis and the most recent hospitalization was in February 2023. The patient is seen today November 26, 2024 in follow-up on the selective care unit. He is currently sitting up in bed. Awake and alert no acute distress. Maintaining O2 saturations in the 90s on 4 L/min per nasal cannula. He is alternating with BiPAP 12/5 and 40% and wearing it at night. Blood culture pending. White count 8.4. Hemoglobin 11.3. Platelets 237. Sodium 136. Potassium 4.5. Bicarb 37. BUN 21. Creatinine 0.68. Glucose 113. He remains on DuoNeb inhalations, Symbicort, Solu-Medrol. Remains on oral diuretics. Ant ibiotics in the form of vancomycin and ceftriaxone. The patient is seen today November 27, 2024 in follow-up on the selective care unit. He is currently resting in bed. Awake and alert in no acute distress. Continues to utilize BiPAP 12/5 and 40% FiO2 throughout the evening and during the day while napping. Otherwise he is maintaining good O2 saturations in the 90s on 3 L/min per nasal cannula. White count 9.9. Hemoglobin 11.2. Platelets 232. Sodium 140. Potassium 4.5. Bicarb 40. BUN 31. Creatinine 0.88. Glucose 142. Blood culture revealed no growth. He remains on DuoNeb inhalations, Symbicort, Solu-Medrol. Continued on vancomycin and ceftriaxone. Anticoagulated with Eliquis. Remains on oral diuretics. Objective - Vital Signs Vital signs: Vital Signs Temp 97.5 F L 11/27/24 11:30 Pulse 76 11/27/24 11:30 Resp 20 11/27/24 11:30 BP 158/91 11/27/24 11:30 Pulse Ox 94 L 11/27/24 11:30 FiO2 40 11/27/24 09:04 Intake & Output 11/26/24 11/27/24 11/27/24 18:59 06:59 18:59 Intake Total 740 20 128 Output Total 675 700 750 Balance 35 -799 -971 Weight 110 kg 104 kg Intake: IV 20 20 10 Invasive Line 2 20 20 10 Oral 720 118 Output: Urine 675 700 750 Other: Voiding Method Urinal Urinal # Voids 1 - Exam GENERAL EXAM: Alert, morbidly obese, 69-year-old male, resting in bed, on BiPAP 12/5 and 40% FiO2 alternating with 4 L nasal cannula, comfortable in no apparent distress. HEAD: Normocephalic. EYES: Normal reaction of pupils, equal size. NOSE: Clear with pink turbinates. THROAT: No erythema or exudates. NECK: No masses, no JVD. CHEST: No chest wall deformity. LUNGS: Equal air entry with no crackles, wheeze, rhonchi or dullness. CVS: S1 and S2 normal with no audible murmur, regular rhythm. ABDOMEN: No hepatosplenomegaly, normal bowel sounds, no guarding or rigidity. SPINE: No scoliosis or deformity SKIN: Cellulitis and chronic venous stasis of the lower extremities CENTRAL NERVOUS SYSTEM: No focal deficits, tone is normal in all 4 extremities. EXTREMITIES: There is 1-2+ peripheral edema. No clubbing, no cyanosis. Peripheral pulses are intact. - Labs CBC & Chem 7: 11/27/24 06:51 11/27/24 11:01 Labs: Abnormal Lab Results - Last 24 Hours (Table) 11/27/24 11/27/24 Range/Units 06:51 11:01 RBC 3.70 L (4.40-5.60) 10*6/uL Hgb 11.2 L (13.0-17.0) g/dL Hct 36.5 L (39.6-50.0) % MCV 98.6 H (80.0-97.0) fL MCHC 30.7 L (32.0-37.0) g/dL Immature Gran # 0.06 H (0.00-0.04) 10*3/uL Neutrophils # 8.93 H (1.80-7.70) 10*3/uL Lymphocytes # 0.66 L (0.90-5.00) 10*3/uL Eosinophils # 0.00 L (0.04-0.35) 10*3/uL Carbon Dioxide 40 H (22-30) mmol/L BUN 31 H (9-20) mg/dL Glucose 142 H (74-99) mg/dL Microbiology - Last 24 Hours (Table) 11/24/24 20:53 Blood Culture - Preliminary Blood Assessment and Plan Assessment: Acute on chronic hypoxic respiratory failure likely secondary to COPD exacerbation. The patient is actively bronchospastic and wheezy. At the same time, the patient has an underlying septic event related to cellulitis of the lower extremities contributing to his respiratory failure. Currently on BiPAP at a pressure of 12/5 with an FiO2 of 40% alternating with oxygen at 4 L/min per nasal cannula. Chest x-ray reveals no acute abnormalities. proBNP level is not elevated. White cell count is normal and the patient has no hemodynamic instability Morbid obesity COPD with chronic hypoxic/hypercapnic respiratory failure along with component of obstructive sleep apnea/obesity hypoventilation syndrome NARCISO/OHS with chronic hypercapnic respiratory failure and chronic metabolic alkalosis Chronic smoker Coronary artery disease with previous coronary intervention PCI and stenting x 4 History of ischemic cardiomyopathy and the patient has a pacer/AICD in place and the most recent echocardiogram from 2019 showed a preserved LV function History of CVA Hypertension Hyperlipidemia Chronic lower extremity lymphedema/chronic venous stasis with recurrent cellulitis and the patient has active signs of cellulitis at this point Previous history of bowel resection the patient has diverting colostomy History of degenerative lumbar disc disease with vertebral fracture L2-L5 and spinal canal stenosis degenerative arthritis History of diverticular disease Peripheral neuropathy Chronic medical debility and the patient uses a motorized wheelchair. He has chronic hypoxic respiratory failure maintained on oxygen 2 L/min nasal cannula Plan: The patient was seen and evaluated Labs and medications reviewed Cleared for discharge Continue his home DuoNeb inhalations Continue his home oxygen Continue Symbicort Continue albuterol HFA Complete a prednisone taper Follow-up with his PCP to schedule a home sleep study States his previous BiPAP machine was taken back due to the recall Plan is for home with home care I have personally seen and examined the patient, performed the documentation and the assessment and plan as written. Number of minutes spent on the visit: 10 Dictation was produced using [employer] dictation software. Please excuse any grammatical, word or spelling errors.
[2024-11-27] MEDS: INSULIN LISPRO (HumaLOG) 100 UNIT/ML 10 mL VL SQ SCH (13:55)
[2024-11-27] MEDS: VANCOMYCIN TROUGH DUE 1 EACH MISC MISCELLANE ONE (14:33)
--- NOTE | 2024-11-27 15:27 | P.PN ---
Subjective Progress Note Date: 11/27/24 Hospital Course: 69-year-old male with past medical history of CHF, CAD with previous PCI, CVA, HTN, HLD, lymphedema, morbid obesity, chronic hypoxic respiratory failure on home oxygen, COPD, NARCISO, tobacco use disorder, who presented to the ER on 4 shortness of breath. Patient was unable to provide significant history on admission, was placed on BiPAP. Admitted for acute on chronic hypoxic r espiratory failure secondary to COPD exacerbation, started on IV steroids, breathing treatment, pulmonology consulted. Patient was also started on IV ceftriaxone and vancomycin for possible cellulitis. He was found to have left heel wound, wound care consulted. 11/27: Seen examined at bedside, no acute events overnight, patient was again wearing BiPAP as he was feeling more comfortable and wanted, although, he is satting well on nasal cannula. Patient was irritable, he declined Accu-Cheks. He is afebrile, blood pressure elevated 158/91, SpO2 94% on 3 L. Sodium normal 140, potassium normal 4.5, creatinine normal. Wound care recommended honey gel and left foot x-ray, surgical consult for possible debridement. Podiatry consulted. Per pulmonology, patient cleared for discharge. He will be continued on broad-spectrum antibiotics, wound cultures pending, blood cultures preliminary negative. Pertinent positives and negatives as discussed above, a complete review of systems was performed and all other systems are negative. Vitals Signs Reviewed. General: [nontoxic], [no distress], [appears at stated age], morbidly obese Derm: [warm], [dry] Head: [atraumatic], [normocephalic], [symmetric] Eyes: [EOMI], [no lid lag], [anicteric sclera] Mouth: [no lip lesion], [mucus membranes moist] Cardiovascular: [S1S2 reg], [no murmur] Lungs: [CTA bilateral], [no rhonchi, no rales] , [no accessory muscle use] Abdominal: [soft], [ nontender to palpation], [no guarding], [no appreciable o rganomegaly] Ext: [no gross muscle atrophy], [lymphedema, chronic wounds [no contractures] Neuro: [ CN II-XI grossly intact], [no focal neuro deficits] Psych: [Alert], [oriented], [appropriate affect] Assessment and Plan: Acute on chronic hypoxic respiratory failure secondary to COPD exacerbation, resolved - Pulmonology following, appreciate recommendations -Continue Symbicort 80/4.5 twice daily, DuoNeb 4 times daily scheduled, discontinue Solu-Medrol, start prednisone 40 daily -Wean off BiPAP as discussed -PT OT -discussed with RN Hyponatremia, improving: Continue normal saline at 75 cc/h Possible lower extremity cellulitis Left heel chronic wound, concern for osteomyelitis -Continue ceftriaxone 2 g every 24 hours SOT 11/24, pharmacy to dose vancomycin SOT 11/25, MRSA swab ordered and pending, blood cultures pending, monitor BMP and CMP daily -Wound care consulted -Podiatry consulted Paroxysmal A-fib: Continue Eliquis 5 twice daily, Cardizem 60 mg every 8 hours oral, Lopressor 25 mg p.o. 3 times daily CHF, not in acute exacerbation CAD - Continue aspirin 81 mg daily, Plavix 75 mg p.o. daily, patient is on triple therapy, needs to be readdressed with primary care physician, cardiology, continue Lasix 40 3 times daily, Imdur 30 daily, losartan 25 mg nightly, Lopressor as above BPH: Continue home Flomax 0.4 GERD: Continue home Protonix 40 daily Morbid obesity, recommend structured weight loss program DVT ppx: Eliquis Code status: Full code Anticipated discharge place: TBD Anticipated discharge time: TBD Objective - Vital Signs Vital signs: Vital Signs Temp 97.5 F L 11/27/24 11:30 Pulse 80 11/27/24 13:33 Resp 20 11/27/24 11:30 BP 158/91 11/27/24 11:30 Pulse Ox 94 L 11/27/24 11:30 FiO2 40 11/27/24 09:04 Intake & Output 11/26/24 11/27/24 11/27/24 18:59 06:59 18:59 Intake Total 740 20 488 Output Total 069 580 9905 Balance 22 -998 -389 Weight 110 kg 104 kg Intake: IV 20 20 10 Invasive Line 2 20 20 10 Oral 720 478 Output: Urine 763 203 4352 Other: Voiding Method Urinal Urinal Urinal # Voids 1 - Labs CBC & Chem 7: 11/27/24 06:51 11/27/24 11:01 Labs: Abnormal Lab Results - Last 24 Hours (Table) 11/27/24 11/27/24 11/27/24 Range/Units 06:51 11:01 11:01 RBC 3.70 L (4.40-5.60) 10*6/uL Hgb 11.2 L (13.0-17.0) g/dL Hct 36.5 L (39.6-50.0) % MCV 98.6 H (80.0-97.0) fL MCHC 30.7 L (32.0-37.0) g/dL Immature Gran # 0.06 H (0.00-0.04) 10*3/uL Neutrophils # 8.93 H (1.80-7.70) 10*3/uL Lymphocytes # 0.66 L (0.90-5.00) 10*3/uL Eosinophils # 0.00 L (0.04-0.35) 10*3/uL Carbon Dioxide 40 H (22-30) mmol/L BUN 31 H (9-20) mg/dL Glucose 142 H (74-99) mg/dL Vancomycin Trough 34.5 H* ug/mL Microbiology - Last 24 Hours (Table) 11/24/24 20:53 Blood Culture - Preliminary Blood
--- NOTE | 2024-11-27 17:02 | P.CON ---
Consult Note - . Consult date: 11/27/24 Assessment/Plan:: Chief complaint: Left heel ulceration HPI: This is a 69-year-old male complaining of left heel ulceration. He thinks that he has had this for about a month. He states he does see a clinical psychology professor in [place]. He was told he needed to see a doctor to treat this but that his current doctor would not. He did not end up following up. He denies any pain to the left foot. He states it has been seeping but he has not been able to phy sically apply a bandage or see it himself. He is at a history of chronic ulcerations and lymphedema. He denies any pain from the heel and denies any acute injuries that he thought were inciting events. Lower extremity exam: Vascular: Nonpalpable DP and PT pulse bilateral CFT less than 4 seconds to all digits No hair growth distal to the knee Severe chronic lymphedema with hemosiderin to anterior shins and irregularities within sensations of the tissue secondary to chronic history. Derm: Severe irregularities to anterior shins bilateral with weeping tissue with no severe ulceration. Plantar left heel has a full-thickness ulceration measuring 4.0 x 4.5 x 0.2 cm with 100% fibrotic wound base. No significant surrounding erythema or acute signs of infectious process are present today. T his is soupy and mildly fluctuant with no clear signs of underlying abscess. Macerated tissue surrounding the wound. Neuro: Decreased light touch sensation to the level of the ankle bilateral. MSK: No pain with palpation to the left heel. Strength testing is 5 out of 5 to all pedal muscle groups crossing the ankle joint bilateral. No pain with deep calf compression. Calves are structurally very taut secondary to lymphedema. Assessment: 1. Pressure ulcer left heel 2. Ulcer to the left heel of subcutaneous tissue 3. Peripheral vascular disease 4. Chronic lymphedema Plan: In-depth discussion with patient regarding his clinical findings today. Radiographs 3 views of the left foot were ordered today to assess underlying osseous structures - Discussed the potential for a bedside debridement but at this time I see no need for surgical intervention. This is looking stable at this time. Discussed he will require appropriate wound care upon follow-up. He lives in [place]. Discussed the option of wound care in [place] versus [place]. Patient would like to think about this. At this time wound care order was placed for Betadine and dry sterile dressing daily. - All patient's questions were answered in great detail today. He was very happy with the visit. I will continue to follow him while he remains in house. Becky Rueda DPM, [facility]
--- NOTE | 2024-11-27 18:09 | XR ---
EXAMINATION TYPE: XR foot complete LT DATE OF EXAM: 11/27/2024 5:32 PM INDICATION: Patient age:Male; 69 years old; Reason for study: pressure ulcer r/o osteomyelitis; PHH. pain COMPARISON: Left foot radiograph 08/01/2017 TECHNIQUE: The left foot was examined in the AP, oblique, and lateral projections. FINDINGS: Diffuse bone demineralization which limits evaluation. No evidence of any acute osseous pathology. No osseous erosions. Diffuse subcutaneous edema of the foot. No distinct soft tissue gas. Joints are pr eserved. Incidental note is made of symphalangism of the fifth distal interphalangeal joint. Moderate size posterior and plantar calcaneal enthesophytes. IMPRESSION: 1. No evidence of acute fracture. 2. No radiographic evidence for osteomyelitis. 3. Diffuse subcutaneous edema of the foot. [facility], , 11/27/2024 6:07 PM
[2024-11-28] MEDS: predniSONE 20 MG TAB PO SCH (08:28)
[2024-11-28 11:52] LABS: Basophils # (A) 0.01 10*3/uL (0.00-0.10); Basophils % (A) 0.1 %; Eosinophils # (A) 0.00 10*3/uL (0.04-0.35); Eosinophils % (A) 0.0 %; HCT 39.4 % (39.6-50.0); HGB 12.1 g/dL (13.0-17.0); Lymphocytes # (A) 0.70 10*3/uL (0.90-5.00); Lymphocytes % (A) 6.6 %; MCH 30.5 pg (27.0-32.0); MCHC 30.7 g/dL (32.0-37.0); MCV 99.2 fL (80.0-97.0); Monocytes # (A) 0.92 10*3/uL (0.20-1.00); Monocytes % (A) 8.7 %; Neutrophils # (A) 8.85 10*3/uL (1.80-7.70); Neutrophils % (A) 83.3 %; Platelet Count 231 10*3/uL (140-440); RBC 3.97 10*6/uL (4.40-5.60); RDW 13.6 % (11.5-14.5); WBC 10.62 10*3/uL (4.50-10.00)
[2024-11-28 11:58] LABS: African American GFR (CKD) >90 (>60 ml/min/1.73 sqM); Blood Urea Nitrogen 39 mg/dL (9-20); Calcium 9.2 mg/dL (8.4-10.2); Chloride 96 mmol/L (98-107); Glucose 115 mg/dL (74-99); Non-African American GFR(CKD) 83 (>60 ml/min/1.73 sqM); Potassium 4.4 mmol/L (3.5-5.1); Sodium 143 mmol/L (137-145)
[2024-11-28 12:06] LABS: Anion Gap 6 mmol/L
[2024-11-28 12:21] LABS: Carbon Dioxide 41 mmol/L (22-30)
--- NOTE | 2024-11-28 13:40 | XR ---
EXAMINATION TYPE: XR chest 1V portable DATE OF EXAM: 11/28/2024 1:27 PM COMPARISON: Chest radiographs from 11/24/2024 TECHNIQUE: XR chest 1V portable Portable AP radiograph of the chest. CLINICAL INDICATION:Male, 69 years old with history of hypoxia; FINDINGS: Lungs/Pleura: There is no evidence of pleural effusion, focal consolidation, or pneumothorax. Chroni c elevation of the right hemidiaphragm. Pulmonary vascularity: Unremarkable. Heart/mediastinum: Cardiomediastinal silhouette is enlarged and stable. Two lead cardiac conduction d evice overlying the left hemithorax with lead tips projecting over the right ventricle and right atri um. Musculoskeletal: No acute osseous pathology. IMPRESSION: Chronic changes without acute pulmonary process. No significant change from prior. [facility], , 11/28/2024 1:37 PM
--- NOTE | 2024-11-28 15:19 | P.PN ---
Subjective Progress Note Date: 11/28/24 Hospital Course: 69-year-old male with past medical history of CHF, CAD with previous PCI, CVA, HTN, HLD, lymphedema, morbid obesity, chronic hypoxic respiratory failure on home oxygen, COPD, NARCISO, tobacco use disorder, who presented to the ER on 4 shortness of breath. Patient was unable to provide significant history on admission, was placed on BiPAP. Admitted for acute on chronic hypoxic r espiratory failure secondary to COPD exacerbation, started on IV steroids, breathing treatment, pulmonology consulted. Patient was also started on IV ceftriaxone and vancomycin for possible cellulitis. He was found to have left heel wound, wound care consulted. 11/27: Seen examined at bedside, no acute events overnight, he was tolerating nasal cannula, discussed with RN, he had an episode of desaturation to low 80s in the evening, improved with increased nasal cannula to 4 L. Patient was irritable, he declined Accu-Cheks previously and has been declining morning blood work. He is afebrile, blood pressure elevated 147/82, SpO2 94% on 4 L. WBC up to 10.62, hemoglobin stable 12.1, sodium and potassium WNL, creatinine normal, bicarb 41.. Podiatry following, no plans for debridement. Per lmonology, patient cleared for discharge. He will be continued on broad- spectrum antibiotics, wound cultures pending, blood cultures preliminary negative. I did have conversation today with patient as he was stating that he is going to leave AMA, we discussed his current medical conditions, need to wait for final wound cultures, and ongoing respiratory issues, he agreed to stay, he agreed to have blood work done. 1 to 60 mg daily as patient is obese. Chest x- ray ordered and showed no acute process and no significant changes from before. Will switch to Zosyn 3.375 every 8 hours as wound cultures growing Enterococcus, ID consulted Pertinent positives and negatives as discussed above, a complete review of systems was performed and all other systems are negative. Vitals Signs Reviewed. General: [nontoxic], [no distress], [appears at stated age], morbidly obese Derm: [warm], [dry] Head: [atraumatic], [normocephalic], [symmetric] Eyes: [EOMI], [no lid lag], [anicteric sclera] Mouth: [no lip lesion], [mucus membranes moist] Cardiovascular: [S1S2 reg], [no murmur] Lungs: [CTA bilateral], [no rhonchi, no rales] , [no accessory muscle use, bilateral wheezing] Abdominal: [soft], [ nontender to palpation], [no guarding], [no appreciable organomegaly] Ext: [no gross muscle atrophy], [lymphedema, chronic wounds [no contractures] Neuro: [ CN II-XI grossly intact], [no focal neuro deficits] Psych: [Alert], [oriented], [appropriate affect] Assessment and Plan: Acute on chronic hypoxic respiratory failure secondary to COPD exacerbation, resolved - Pulmonology following, appreciate recommendations, patient was cleared for discharge -Continue Symbicort 80/4.5 twice daily, DuoNeb 4 times daily scheduled, discontinue Solu-Medrol, increase prednisone to 60 mg -Get chest x-ray as above -PT OT -discussed with KINGSLEY Mcgee, resolved, discontinue IV fluids Possible lower extremity cellulitis Left heel chronic wound, - Will switch to Zosyn 3.375 every 8 hours as wound cultures growing Enterococcus, ID consulted MRSA swab ordered and pending, blood cultures pending, monitor BMP and CMP daily -Wound care consulted -Podiatry consulted Paroxysmal A-fib: Continue Eliquis 5 twice daily, Cardizem 60 mg every 8 hours oral, Lopressor 25 mg p.o. 3 times daily CHF, not in acute exacerbation CAD - Continue aspirin 81 mg daily, Plavix 75 mg p.o. daily, patient is on triple therapy, needs to be readdressed with primary care physician, cardiology, continue Lasix 40 3 times daily, Imdur 30 daily, losartan 25 mg nightly, Lopressor as above BPH: Continue home Flomax 0.4 GERD: Continue home Protonix 40 daily Morbid obesity, recommend structured weight loss program DVT ppx: Eliquis Code status: Full code Anticipated discharge place: TBD Anticipated discharge time: TBD Objective - Vital Signs Vital signs: Vital Signs Temp 97.8 F 11/28/24 12:00 Pulse 100 11/28/24 12:24 Resp 20 11/28/24 12:00 BP 147/82 11/28/24 12:00 Pulse Ox 94 L 11/28/24 12:00 FiO2 40 11/28/24 04:39 Intake & Output 11/27/24 11/28/24 11/28/24 18:59 06:59 18:59 Intake Total 1098 20 840 Output Total 5387 1974 965 Balance -177 -125 Weight 102 kg Intake: IV 20 20 Invasive Line 1 10 Invasive Line 2 20 10 Oral 1078 840 Output: Urine 2810 1975 965 Other: Voiding Method Urinal Urinal Urinal - Labs CBC & Chem 7: 11/28/24 11:15 11/28/24 11:15 Labs: Abnormal Lab Results - Last 24 Hours (Table) 11/28/24 11/28/24 Range/Units 11:15 11:15 WBC 10.62 H (4.50-10.00) 10*3/uL RBC 3.97 L (4.40-5.60) 10*6/uL Hgb 12.1 L (13.0-17.0) g/dL Hct 39.4 L (39.6-50.0) % MCV 99.2 H (80.0-97.0) fL MCHC 30.7 L (32.0-37.0) g/dL MPV 9.4 L (9.5-12.2) fL Immature Gran # 0.14 H (0.00-0.04) 10*3/uL Neutrophils # 8.85 H (1.80-7.70) 10*3/uL Lymphocytes # 0.70 L (0.90-5.00) 10*3/uL Eosinophils # 0.00 L (0.04-0.35) 10*3/uL Chloride 96 L (98-107) mmol/L Carbon Dioxide 41 H* (22-30) mmol/L BUN 39 H (9-20) mg/dL Glucose 115 H (74-99) mg/dL Microbiology - Last 24 Hours (Table) 11/24/24 20:53 Blood Culture - Preliminary Blood 11/26/24 20:00 Gram Stain - Preliminary Foot - Left Wound Culture - Preliminary Gram Neg Bacilli Group D Enterococcus
--- NOTE | 2024-11-28 15:54 | P.PN ---
Subjective Progress Note Date: 11/28/24 This is a 69-year-old morbidly obese male patient, presented to the Emergency Department because of worsening shortness of breath the patient was unable to volunteer any significant history. The patient was found to be in acute [employer]PER[employer]EL[employer] exacerbation. The patient is morbidly obese and has chronic edema lower extremities/lymphedema the patient has obvious cellulitis of the lower extremities bilaterally with chronic venous stasis. Immediately, the patient was placed on a BiPAP the patient remains on a BiPAP at a pressure of 12.5 cm of water with an FiO2 of 40%. He is calm and comfortable on the BiPAP and is generating a tidal volume of more than 400. His minute ventilation is around 12 L/min. Blood gases were not done. In the emergency, the patient was found to have a white cell count of 9.3 with a hemoglobin 11.1 and a platelet count of 222. Normal coagulation profile. Normal renal function with a BUN of 19 and a creatinine of 0.9. Serum bicarb was 40 consistent with chronic hypercapnic r espiratory failure. proBNP level was 411. Troponins were negative. Viral screen was negative. The patient was initially started on IV Rocephin and I added vancomycin regarding cellulitis of lower extremities. The patient is on DuoNeb nebulizer treatments, IV Solu-Medrol and Lovenox for DVT prophylaxis. He is also on normal saline at rate of 75 cc an hour. He is normotensive. Current pulse ox is 99% and the above-mentioned BiPAP settings. Chest x-ray was also noted and the patient has no acute abnormalities. The patient has small lung volumes. No airspace disease. No consolidation. No pleural effusion. Comorbidities include morbid obesity, hypertension, hyperlipidemia, COPD and the patient is a chronic smoker. He also has obstructive sleep apnea/obesity hypoventilation syndrome. Previous history of CHF with previous history of AICD placement, stroke back in 2004 along with chronic difficult mobility and degenerative lumbar disc disease and vertebral fracture L2-L5 and mild canal stenosis. He is also known to have diverticulosis. He has undergone also previous bowel resection the patient has a colostomy in place which is currently functional. This was inserted back in 2018. The patient has had also previous hospitalizations for bilateral lower extremity cellulitis and the most recent hospitalization was in February 2023. The patient is seen today November 26, 2024 in follow-up on the selective care unit. He is currently sitting up in bed. Awake and alert no acute distress. Maintaining O2 saturations in the 90s on 4 L/min per nasal cannula. He is alternating with BiPAP 12/5 and 40% and wearing it at night. Blood culture pending. White count 8.4. Hemoglobin 11.3. Platelets 237. Sodium 136. Potassium 4.5. Bicarb 37. BUN 21. Creatinine 0.68. Glucose 113. He remains on DuoNeb inhalations, Symbicort, Solu-Medrol. Remains on oral diuretics. Ant ibiotics in the form of vancomycin and ceftriaxone. The patient is seen today November 27, 2024 in follow-up on the selective care unit. He is currently resting in bed. Awake and alert in no acute distress. Continues to utilize BiPAP 12/5 and 40% FiO2 throughout the evening and during the day while napping. Otherwise he is maintaining good O2 saturations in the 90s on 3 L/min per nasal cannula. White count 9.9. Hemoglobin 11.2. Platelets 232. Sodium 140. Potassium 4.5. Bicarb 40. BUN 31. Creatinine 0.88. Glucose 142. Blood culture revealed no growth. He remains on DuoNeb inhalations, Symbicort, Solu-Medrol. Continued on vancomycin and ceftriaxone. Anticoagulated with Eliquis. Remains on oral diuretics. The patient is seen today November 28, 2024 in follow-up on the selective care unit. He is currently sitting up in a chair at the bedside. Awake and alert in no acute distress. He denies any worsening shortness of breath, cough or congestion. Feeling back to his baseline. He is maintaining O2 saturations in the 90s on 4 L/min per nasal cannula. He is afebrile. Hemodynamically stable. Chest x-ray again shows chronic changes but no acute pulmonary process. Left foot wound cultures positive for gram-negative bacilli. Group D Enterococcus. White count 10.6. Hemoglobin 12.1. Platelets 231. Sodium 143. Potassium 4.4. Bicarb 41. BUN 39. Creatinine 0.94. Glucose 115. He is continued on DuoNeb inhalations, Symbicort, prednisone taper. He remains on Zosyn. Anticoagulated with Eliquis. Objective - Vital Signs Vital signs: Vital Signs Temp 97.8 F 11/28/24 12:00 Pulse 100 11/28/24 12:24 Resp 20 11/28/24 12:00 BP 147/82 11/28/24 12:00 Pulse Ox 94 L 11/28/24 12:00 FiO2 40 11/28/24 04:39 Intake & Output 11/27/24 11/28/24 11/28/24 18:59 06:59 18:59 Intake Total 1098 20 840 Output Total 1275 1974 965 Balance -177 -1954 -125 Weight 102 kg Intake: IV 20 20 Invasive Line 1 10 Invasive Line 2 20 10 Oral 1078 840 Output: Urine 5 1974 965 Other: Voiding Method Urinal Urinal Urinal - Exam GENERAL EXAM: Alert, morbidly obese, 69-year-old male, sitting up in a chair, on 4 L nasal cannula, comfortable in no apparent distress. HEAD: Normocephalic. EYES: Normal reaction of pupils, equal size. NOSE: Clear with pink turbinates. THROAT: No erythema or exudates. NECK: No masses, no JVD. CHEST: No chest wall deformity. LUNGS: Equal air entry with no crackles, wheeze, rhonchi or dullness. CVS: S1 and S2 normal with no audible murmur, regular rhythm. ABDOMEN: No hepatosplenomegaly, normal bowel sounds, no guarding or rigidity. SPINE: No scoliosis or deformity SKIN: Cellulitis and chronic venous stasis of the lower extremities CENTRAL NERVOUS SYSTEM: No focal deficits, tone is normal in all 4 extremities. EXTREMITIES: There is 1-2+ peripheral edema. No clubbing, no cyanosis. Peripheral pulses are intact. - Labs CBC & Chem 7: 11/28/24 11:15 11/28/24 11:15 Labs: Abnormal Lab Results - Last 24 Hours (Table) 11/28/24 11/28/24 Range/Units 11:15 11:15 WBC 10.62 H (4.50-10.00) 10*3/uL RBC 3.97 L (4.40-5.60) 10*6/uL Hgb 12.1 L (13.0-17.0) g/dL Hct 39.4 L (39.6-50.0) % MCV 99.2 H (80.0-97.0) fL MCHC 30.7 L (32.0-37.0) g/dL MPV 9.4 L (9.5-12.2) fL Immature Gran # 0.14 H (0.00-0.04) 10*3/uL Neutrophils # 8.85 H (1.80-7.70) 10*3/uL Lymphocytes # 0.70 L (0.90-5.00) 10*3/uL Eosinophils # 0.00 L (0.04-0.35) 10*3/uL Chloride 96 L (98-107) mmol/L Carbon Dioxide 41 H* (22-30) mmol/L BUN 39 H (9-20) mg/dL Glucose 115 H (74-99) mg/dL Microbiology - Last 24 Hours (Table) 11/24/24 20:53 Blood Culture - Preliminary Blood 11/26/24 20:00 Gram Stain - Preliminary Foot - Left Wound Culture - Preliminary Gram Neg Bacilli Group D Enterococcus Assessment and Plan Assessment: Acute on chronic hypoxic respiratory failure likely secondary to COPD exacerbation. The patient is actively bronchospastic and wheezy. At the same time, the patient has an underlying septic event related to cellulitis of the lower extremities contributing to his respiratory failure. Currently on BiPAP at a pressure of 12/5 with an FiO2 of 40% alternating with oxygen at 4 L/min per nasal cannula. Chest x-ray reveals no acute abnormalities. proBNP level is not elevated. White cell count is normal and the patient has no hemodynamic instability Left foot wound culture positive for gram-negative bacilli, group D Enteroco ccus. Currently on Zosyn Morbid obesity COPD with chronic hypoxic/hypercapnic respiratory failure along with component of obstructive sleep apnea/obesity hypoventilation syndrome NARCISO/OHS with chronic hypercapnic respiratory failure and chronic metabolic alkalosis Chronic smoker Coronary artery disease with previous coronary intervention PCI and stenting x 4 History of ischemic cardiomyopathy and the patient has a pacer/AICD in place and the most recent echocardiogram from 2019 showed a preserved LV function History of CVA Hypertension Hyperlipidemia Chronic lower extremity lymphedema/chronic venous stasis with recurrent cellulitis and the patient has active signs of cellulitis at this point Previous history of bowel resection the patient has diverting colostomy History of degenerative lumbar disc disease with vertebral fracture L2-L5 and spinal canal stenosis degenerative arthritis History of diverticular disease Peripheral neuropathy Chronic medical debility and the patient uses a motorized wheelchair. He has chronic hypoxic respiratory failure maintained on oxygen 2 L/min nasal cannula Plan: The patient was seen and evaluated Chest x-ray, labs and medications reviewed Microbiology reviewed ID consulted per primary service Currently on Zosyn Continue DuoNeb inhalations Continue Symbicort Continue diuretics Complete a prednisone taper We will continue to follow I have personally seen and examined the patient, performed the documentation and the assessment and plan as written. Number of minutes spent on the visit: 10 Dictation was produced using [employer] dictation software. Please excuse any grammatical, word or spelling errors.
[2024-11-28] MEDS: PIPERACILLIN-TAZOBACTAM 3.375 GM in SODIUM CHLORIDE 0.9% 100 ML IVPB SCH (16:05)
[2024-11-29 08:13] LABS: Basophils # (A) 0.01 10*3/uL (0.00-0.10); Basophils % (A) 0.1 %; Eosinophils # (A) 0.00 10*3/uL (0.04-0.35); Eosinophils % (A) 0.0 %; HCT 36.9 % (39.6-50.0); HGB 11.2 g/dL (13.0-17.0); Lymphocytes # (A) 1.20 10*3/uL (0.90-5.00); Lymphocytes % (A) 15.4 %; MCH 30.6 pg (27.0-32.0); MCHC 30.4 g/dL (32.0-37.0); MCV 100.8 fL (80.0-97.0); Monocytes # (A) 0.79 10*3/uL (0.20-1.00); Monocytes % (A) 10.1 %; Neutrophils # (A) 5.70 10*3/uL (1.80-7.70); Neutrophils % (A) 73.2 %; Platelet Count 207 10*3/uL (140-440); RBC 3.66 10*6/uL (4.40-5.60); RDW 13.5 % (11.5-14.5); WBC 7.79 10*3/uL (4.50-10.00)
--- NOTE | 2024-11-29 08:17 | P.CONS ---
History of Present Illness - Reason for Consult Consult date: 11/28/24 Left heel wound infection Requesting physician: Clara Balderrama - Chief Complaint Nonhealing wound to the left heel x weeks - History of Present Illness Patient is a 69-year-old male with a past medical history significant for Coronary Artery Disease (CAD), Chest Pain / Angina, COPD, CVA/TIA, Hyperlipidemia, Hypertension, Myocardial Infarction (ND), Osteoarthritis (OA), Respiratory Disorder, Sleep Apnea/CPAP/BIPAP presented to the hospital 4 days ago for evaluation of increasing shortness of breath which did require BiPAP placement. He chest x-ray was negative patient was also noticed to have a wound to the left heel area for the patient has been seen by wound care center recommended mary lema subsequently evaluated by podiatry local care was switched over to Betadine soaked dressing patient did have a left heel wound culture obtained which did grew group D Enterococcus Pseudomonas Prevotella patient was initially treated with vancomycin and Rocephin antibiotic and was switched over to Zosyn infectious disease was consulted for further management of antibiotic therapy patient with ND evaluation denies having any fever or any chills and no fever have been recorded during this hospital stay patient denies having any headache or URI symptoms no chest pain seem to be breathing slightly comfortably still requiring BiPAP off-and-on P denies having any significant cough or sputum production no abdominal pain or diarrhea has been complaining of pain to the left heel area mostly dull aching mild to moderate without radiation minimal drainage on the dressing patient did have a mildly elevated white count 10.62 today with a left shift creatinine 0.94 Vanco trough was 34.5 with x-ray no evidence for acute fracture or bony changes diffuse subcutaneous edema of the foot chest x-ray chronic changes without acute pulmonary process Review of Systems Positive point and negatives has been mentioned in the HPI, complete review of systems was performed and all other systems are negative Past Medical History Past Medical History: Coronary Artery Disease (CAD), Chest Pain / Angina, COPD, CVA/TIA, Hyperlipidemia, Hypertension, Myocardial Infarction (ND), Osteoarthritis (OA), Respiratory Disorder, Sleep Apnea/CPAP/BIPAP Additional Past Medical History / Comment(s): obesity, obesity hypoventilation syndrome, suspected CHF and cor pulmonale, previous history of defibrillator placement, CVA in 2004, chronic back pain secondary to DDD and spinal canal stenosis, history of vertebral fracture L2 through L5, chronic lower extremity edema, diverticular disease, L knee fx in past and torn R rotator cuff, cellulitis, hospitalization for gallbladder complications Last Myocardial Infarction Date:: 2011 History of Any Multi-Drug Resistant Organisms: None Reported Past Surgical History: Bowel Resection, Cholecystectomy, Heart Catheterization With Stent, Hernia Repair, Pacemaker Additional Past Surgical History / Comment(s): PTCA with stent (4 total), 04/05/13 [employer] pacemaker, 1989' umbilical hernia repair, colonoscopy, circumcision, R eye surgery for strabismus, gallbladder stents One removed from HF on 03/19, Colostomy with open wounds. Past Anesthesia/Blood Transfusion Reactions: No Reported Reaction Date of Last Stent Placement:: 2012 Type of Cardiac Device: Permanent Pacemaker Device Placement Date:: 04/05/13 Past Psychological History: No Psychological Hx Reported Smoking Status: Current some day smoker Past Alcohol Use History: None Reported Past Drug Use History: None Reported - Past Family History Father Family Medical History: Musculoskeletal Disorder, Neurologic Disorder Additional Family Medical History / Comment(s): Father had parkinson's dx and at age 84 yrs. Mother Family Medical History: Myocardial Infarction (ND) Additional Family Medical History / Comment(s): Mother had 3 vessel CABG. She of a massive ND at the age of 53 yrs. Medications and Allergies Home Medications Medication Instructions Recorded Confirmed Type Clopidogrel [Plavix] 75 mg PO DAILY 03/20/19 11/25/24 History Sennosides/Docusate Sodium [Senna 1 tab PO BID 02/07/23 11/25/24 History Plus 8.6-50 mg Tablet] oxyCODONE HCL/ACETAMINOPHEN 1 tab PO Q6HR PRN 02/07/23 11/25/24 History [Percocet 10-325 mg] Budesonide/Formoterol Fumarate 2 puff INHALATION RT-BID 03/03/23 11/25/24 History [Symbicort 80-4.5 Mcg Inhaler] Ipratropium-Albuterol Nebulize 3 ml INHALATION RT-QID 03/03/23 11/25/24 History [Duoneb 0.5 mg-3 mg/3 ml Soln] Diclofenac Sodium Gel [Voltaren 1% 2 gm TOPICAL QID PRN gm 03/07/23 11/25/24 Rx Gel] SILVER sulfADIAZINE CREAM 1 applic TOPICAL DAILY PRN 03/23/23 11/25/24 History [Silvadene Cream] Amiodarone [Cordarone] 200 mg PO BID 11/25/24 11/25/24 History Apixaban [Eliquis] 5 mg PO BID 11/25/24 11/25/24 History Aspirin EC [Ecotrin Low Dose] 81 mg PO DAILY 11/25/24 11/25/24 History Atorvastatin [Lipitor] 40 mg PO HS 11/25/24 11/25/24 History Ciclopirox Olamine Cream [Ciclodan] 1 applic TOPICAL BID 11/25/24 11/25/24 History Doxycycline Hyclate 100 mg PO BID 11/25/24 11/25/24 History Furosemide [Lasix] 40 mg PO TID 11/25/24 11/25/24 History Isosorbide Mononitrate ER [Imdur] 30 mg PO PC-LUNCH 11/25/24 11/25/24 History Losartan [Cozaar] 25 mg PO HS 11/25/24 11/25/24 History Metoprolol Tartrate [Lopressor] 25 mg PO TID 11/25/24 11/25/24 History Pantoprazole Sodium [Protonix] 40 mg PO AC-BRKFST 11/25/24 11/25/24 History Tamsulosin [Flomax] 0.4 mg PO DAILY 11/25/24 11/25/24 History dilTIAZem HCL 60 mg PO Q8H 11/25/24 11/25/24 History Allergies Allergy/AdvReac Type Severity Reaction Status Date / Time No Known Allergies Allergy Verified 11/25/24 12:46 Physical Exam Vitals: Vital Signs Temp Pulse Pulse Resp BP Pulse Ox FiO2 11/28/24 12:24 100 11/28/24 12:12 92 11/28/24 12:00 97.8 F 94 20 147/82 94 L 11/28/24 08:29 88 11/28/24 08:16 88 11/28/24 07:53 97.7 F 88 21 143/85 91 L 11/28/24 04:39 40 11/28/24 04:00 86 24 150/76 96 11/28/24 00:00 97.6 F 82 19 148/69 97 50 11/27/24 20:00 97.8 F 82 20 131/80 93 L 11/27/24 16:51 92 11/27/24 16:41 92 Intake and Output 11/28/24 11/28/24 11/28/24 06:59 14:59 22:59 Intake Total 840 Output Total 1700 965 Balance -1700 -125 Intake: Oral 840 Output: Urine 1700 965 Other: Voiding Method Urinal Urinal Weight 102 kg GENERAL DESCRIPTION: Elderly male up in the chair, no distress. No tachypnea or accessory muscle of respiration use. HEENT: Shows Pallor , no scleral icterus. Oral mucous membrane is dry. NECK: Trachea central, no thyromegaly. LUNGS: Unlabored breathing. Decreased breath sounds at bases HEART: S1, S2, regular rate and rhythm. No loud murmur ABDOMEN: Soft, no tenderness , guarding or rigidity, no organomegaly EXTREMITIES: Left heel with an unstageable pressure ulcer with some fluctuation noticed and foul-smelling SKIN: No rash, no masses palpable. NEUROLOGICAL: The patient is awake, alert, oriented x3, mood and affect normal. Results CBC & Chem 7: 11/29/24 06:48 11/28/24 11:15 Labs: Abnormal Lab Results - Last 24 Hours (Table) 11/28/24 11/28/24 Range/Units 11:15 11:15 WBC 10.62 H (4.50-10.00) 10*3/uL RBC 3.97 L (4.40-5.60) 10*6/uL Hgb 12.1 L (13.0-17.0) g/dL Hct 39.4 L (39.6-50.0) % MCV 99.2 H (80.0-97.0) fL MCHC 30.7 L (32.0-37.0) g/dL MPV 9.4 L (9.5-12.2) fL Immature Gran # 0.14 H (0.00-0.04) 10*3/uL Neutrophils # 8.85 H (1.80-7.70) 10*3/uL Lymphocytes # 0.70 L (0.90-5.00) 10*3/uL Eosinophils # 0.00 L (0.04-0.35) 10*3/uL Chloride 96 L (98-107) mmol/L Carbon Dioxide 41 H* (22-30) mmol/L BUN 39 H (9-20) mg/dL Glucose 115 H (74-99) mg/dL Microbiology - Last 24 Hours (Table) 11/24/24 20:53 Blood Culture - Preliminary Blood 11/26/24 20:00 Gram Stain - Preliminary Foot - Left Wound Culture - Preliminary Gram Neg Bacilli Group D Enterococcus Assessment and Plan (1) Pressure ulcer, heel, left, unstageable Current Visit: Yes Status: Acute Code(s): L89.620 - PRESSURE ULCER OF LEFT HEEL, UNSTAGEABLE SNOMED Code(s): 34997179331944334 (2) Infected wound Current Visit: Yes Status: Acute Code(s): T14.8XXA - OTHER INJURY OF UNSPECIFIED BODY REGION, INITIAL ENCOUNTER; L08.9 - LOCAL INFECTION OF THE SKIN AND SUBCUTANEOUS TISSUE, UNSP SNOMED Code(s): 03230926 Plan: 1patient with a left heel unstageable pressure ulcer and the patient did have a some necrotic area and fluctuation mild foul-smelling with multiple pathogen growing including Pseudomonas Enterococcus faecalis and Prevotella. 2patient benefit from surgical debridement and deep culture to DC significance of the superficial culture and need for more aggressive antibiotic therapy x- rays were negative for any bony changes. 3continue with empiric Zosyn which should provide adequate coverage for the pathogen wound so far. We will follow on clinical condition and cultures to further adjust medication if needed Thank you for this consultation we will follow the patient along with you Dictation was produced using [employer] dictation software. please excuse any grammatical, word or spelling errors. Time with Patient: Greater than 30
[2024-11-29] MEDS: predniSONE 20 MG TAB PO SCH (08:23)
--- NOTE | 2024-11-29 13:17 | P.PN ---
Subjective Progress Note Date: 11/29/24 This is a 69-year-old morbidly obese male patient, presented to the Emergency Department because of worsening shortness of breath the patient was unable to volunteer any significant history. 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 The patient is morbidly obese and has chronic edema lower extremities/lymphedema the patient has obvious cellulitis of the lower extremities bilaterally with chronic venous stasis. Immediately, the patient was placed on a BiPAP the patient remains on a BiPAP at a pressure of 12.5 cm of water with an FiO2 of 40%. He is calm and comfortable on the BiPAP and is generating a tidal volume of more than 400. His minute ventilation is around 12 L/min. Blood gases were not done. In the emergency, the patient was found to have a white cell count of 9.3 with a hemoglobin 11.1 and a platelet count of 222. Normal coagulation profile. Normal renal function with a BUN of 19 and a creatinine of 0.9. Serum bicarb was 40 consistent with chronic hypercapnic r espiratory failure. proBNP level was 411. Troponins were negative. Viral screen was negative. The patient was initially started on IV Rocephin and I added vancomycin regarding cellulitis of lower extremities. The patient is on DuoNeb nebulizer treatments, IV Solu-Medrol and Lovenox for DVT prophylaxis. He is also on normal saline at rate of 75 cc an hour. He is normotensive. Current pulse ox is 99% and the above-mentioned BiPAP settings. Chest x-ray was also noted and the patient has no acute abnormalities. The patient has small lung volumes. No airspace disease. No consolidation. No pleural effusion. Comorbidities include morbid obesity, hypertension, hyperlipidemia, COPD and the patient is a chronic smoker. He also has obstructive sleep apnea/obesity hypoventilation syndrome. Previous history of CHF with previous history of AICD placement, stroke back in 2004 along with chronic difficult mobility and degenerative lumbar disc disease and vertebral fracture L2-L5 and mild canal stenosis. He is also known to have diverticulosis. He has undergone also previous bowel resection the patient has a colostomy in place which is currently functional. This was inserted back in 2018. The patient has had also previous hospitalizations for bilateral lower extremity cellulitis and the most recent hospitalization was in February 2023. The patient is seen today November 26, 2024 in follow-up on the selective care unit. He is currently sitting up in bed. Awake and alert no acute distress. Maintaining O2 saturations in the 90s on 4 L/min per nasal cannula. He is alternating with BiPAP 12/5 and 40% and wearing it at night. Blood culture pending. White count 8.4. Hemoglobin 11.3. Platelets 237. Sodium 136. Potassium 4.5. Bicarb 37. BUN 21. Creatinine 0.68. Glucose 113. He remains on DuoNeb inhalations, Symbicort, Solu-Medrol. Remains on oral diuretics. Ant ibiotics in the form of vancomycin and ceftriaxone. The patient is seen today November 27, 2024 in follow-up on the selective care unit. He is currently resting in bed. Awake and alert in no acute distress. Continues to utilize BiPAP 12/5 and 40% FiO2 throughout the evening and during the day while napping. Otherwise he is maintaining good O2 saturations in the 90s on 3 L/min per nasal cannula. White count 9.9. Hemoglobin 11.2. Platelets 232. Sodium 140. Potassium 4.5. Bicarb 40. BUN 31. Creatinine 0.88. Glucose 142. Blood culture revealed no growth. He remains on DuoNeb inhalations, Symbicort, Solu-Medrol. Continued on vancomycin and ceftriaxone. Anticoagulated with Eliquis. Remains on oral diuretics. The patient is seen today November 28, 2024 in follow-up on the selective care unit. He is currently sitting up in a chair at the bedside. Awake and alert in no acute distress. He denies any worsening shortness of breath, cough or congestion. Feeling back to his baseline. He is maintaining O2 saturations in the 90s on 4 L/min per nasal cannula. He is afebrile. Hemodynamically stable. Chest x-ray again shows chronic changes but no acute pulmonary process. Left foot wound cultures positive for gram-negative bacilli. Group D Enterococcus. White count 10.6. Hemoglobin 12.1. Platelets 231. Sodium 143. Potassium 4.4. Bicarb 41. BUN 39. Creatinine 0.94. Glucose 115. He is continued on DuoNeb inhalations, Symbicort, prednisone taper. He remains on Zosyn. Anticoagulated with Eliquis. The patient is seen today November 29, 2024 in follow-up on the selective care unit. He was awake and alert in no acute distress. Sitting up in a chair at the bedside. Maintaining O2 saturations in the mid 90s on 4 L/min per nasal cannula. He has been afebrile. Hemodynamically stable. He denies any worsening shortness of breath, cough or congestion. The left heel wound is positive for Pseudomonas aeruginosa, group D Enterococcus, presumptive Staph aureus and Prevotella bivia. White count 7.7. Hemoglobin 11.2. Platelets 207. He remains on DuoNeb inhalations, Symbicort, prednisone taper. Anticoagulated with Eliquis. Remains on oral diuretics. Antibiotics in the form of Zosyn. Objective - Vital Signs Vital signs: Vital Signs Temp 98.2 F 11/29/24 12:05 Pulse 68 11/29/24 13:01 Resp 16 11/29/24 12:05 BP 92/60 11/29/24 12:05 Pulse Ox 95 11/29/24 12:05 FiO2 40 11/29/24 04:08 Intake & Output 11/28/24 11/29/24 11/29/24 18:59 06:59 18:59 Intake Total 1020 10 360 Output Total 1740 2029 575 Balance - Weight 104.5 kg Intake: IV 10 Invasive Line 3 10 Oral 1020 360 Output: Urine 0 2029 575 Other: Voiding Method Urinal Urinal # Voids 1 - Exam GENERAL EXAM: Alert, morbidly obese, 69-year-old male, up in a chair, on 4 L nasal cannula, fairly comfortable in no apparent distress. HEAD: Normocephalic. EYES: Normal reaction of pupils, equal size. NOSE: Clear with pink turbinates. THROAT: No erythema or exudates. NECK: No masses, no JVD. CHEST: No chest wall deformity. LUNGS: Equal air entry with no crackles, wheeze, rhonchi or dullness. CVS: S1 and S2 normal with no audible murmur, regular rhythm. ABDOMEN: No hepatosplenomegaly, normal bowel sounds, no guarding or rigidity. SPINE: No scoliosis or deformity SKIN: Cellulitis and chronic venous stasis of the lower extremities. Ulceration to the left heel CENTRAL NERVOUS SYSTEM: No focal deficits, tone is normal in all 4 extremities. EXTREMITIES: There is 1-2+ peripheral edema. No clubbing, no cyanosis. Peripheral pulses are intact. - Labs CBC & Chem 7: 07/03/25 06:48 11/28/24 11:15 Labs: Abnormal Lab Results - Last 24 Hours (Table) 11/29/24 Range/Units 06:48 RBC 3.66 L (4.40-5.60) 10*6/uL Hgb 11.2 L (13.0-17.0) g/dL Hct 36.9 L (39.6-50.0) % MCV 100.8 H (80.0-97.0) fL MCHC 30.4 L (32.0-37.0) g/dL Immature Gran # 0.09 H (0.00-0.04) 10*3/uL Eosinophils # 0.00 L (0.04-0.35) 10*3/uL Microbiology - Last 24 Hours (Table) 11/26/24 20:00 Gram Stain - Preliminary Foot - Left Wound Culture - Preliminary Pseudomonas aeruginosa Group D Enterococcus Corynebacterium striatum group Presumptive Staph aureus 11/26/24 20:00 Anaerobic Culture - Preliminary Heel - Left Prevotella bivia 11/27/24 08:30 Nasal Screen MRSA/MSSA - Final Nasal Swab Staphylococcus aureus,Not MRSA Assessment and Plan Assessment: Acute on chronic hypoxic respiratory failure likely secondary to COPD exacerbation. The patient is actively bronchospastic and wheezy. At the same time, the patient has an underlying septic event related to cellulitis of the lower extremities contributing to his respiratory failure. Currently on BiPAP at a pressure of 12/5 with an FiO2 of 40% alternating with oxygen at 4 L/min per nasal cannula. Chest x-ray reveals no acute abnormalities. proBNP level is not elevated. White cell count is normal and the patient has no hemodynamic instability Left foot wound culture positive for Pseudomonas aeruginosa, group D Enterococcus, Prevotella bivia. Currently on Zosyn Morbid obesity COPD with chronic hypoxic/hypercapnic respiratory failure along with component of obstructive sleep apnea/obesity hypoventilation syndrome NARCISO/OHS with chronic hypercapnic respiratory failure and chronic metabolic alkalosis Chronic smoker Coronary artery disease with previous coronary intervention PCI and stenting x 4 History of ischemic cardiomyopathy and the patient has a pacer/AICD in place and the most recent echocardiogram from 2019 showed a preserved LV function History of CVA Hypertension Hyperlipidemia Chronic lower extremity lymphedema/chronic venous stasis with recurrent cellulitis and the patient has active signs of cellulitis at this point Previous history of bowel resection the patient has diverting colostomy History of degenerative lumbar disc disease with vertebral fracture L2-L5 and spinal canal stenosis degenerative arthritis History of diverticular disease Peripheral neuropathy Chronic medical debility and the patient uses a motorized wheelchair. He has chronic hypoxic respiratory failure maintained on oxygen 2 L/min nasal cannula Plan: The patient was seen and evaluated Labs and medications reviewed Microbiology reviewed Wound care clinic consult reviewed Infectious disease consult reviewed Currently on Zosyn Continue DuoNeb inhalations Continue Symbicort Continue diuretics Complete a prednisone taper Titrate the FiO2 as tolerated Continue BiPAP support as tolerated Increase his activity as tolerated This patient was seen independently by the pulmonary nurse practitioner addressing pulmonary issues I have personally seen and examined the patient, performed the documentation and the assessment and plan as written. Number of minutes spent on the visit: 25 Dictation was produced using [employer] dictation software. Please excuse any grammatical, word or spelling errors.
--- NOTE | 2024-11-29 16:23 | P.PCN ---
Date of Procedure: 11/29/24 Preoperative Diagnosis: Pressure ulcer left heel Postoperative Diagnosis: Pressure ulcer left heel Procedure(s) Performed: Debridement to the level of muscular tissue left heel Anesthesia: none Surgeon: Becky Rueda Estimated Blood Loss (ml): 5 Pathology: other (Deep cultures anaerobic and aerobic sent to [facility]) Condition: stable Disposition: no change Indications for Procedure: Is a 69-year-old male with continued left heel ulceration. He has had increasing necrosis over his hospital stay and bogginess to the wound. He has elected for surgical debridement of the wound. Preoperative lab studies and radiographs were evaluated. Informed consent was obtained. Questions were answered by the patient to the level of their satisfaction. No guarantees were given or implied. Description of Procedure: Patient remained on the stretcher for the procedure. Correct foot was identified. No hemostasis was used throughout the procedure. Site was cleansed with alcohol. Predebridement wound measurements were 3.0 x 4.0 x 0.2 cm with necrotic. A sterile 15 blade was used to debride necrotic tissue that was loose off of the plantar left heel ulceration. Surrounding hyperkeratotic tissue was debrided with sterile tissue nippers and a 15 blade. Central bogginess and necrosis was completely resected. Some residual necrosis to the borders was left intact. All loose tissue was removed. There was 1 central area that measured 0.4 x 0.4 cm that probed 1.6 cm deep down to the level of bone. 15 blade was placed within this muscular layer and muscular debridement was performed. The bone was not debrided but easily palpable. The cultures were taken in this deep central area. No clear purulence was expressed. The sites were then flushed with saline. Final wound measurements were 4.0 x 5.0 x 1.6 cm with a mixed fibrogranular/necrotic wound base mild bleeding was appreciated and hemostasis achieved with pressure. Iodoform packing was placed in the deepest area and then Betadine was applied and dry gauze to the wound base. Kerlix and an Manpreet bandage was applied from the toes to below the knee. Patient tolerated the procedure well without complication. Vascular status remained intact throughout the procedure. Gross range of motion intact to digits. Becky Rueda, DPAlvino, AACFAS
--- NOTE | 2024-11-29 16:25 | P.PN ---
Progress Note - Text Progress Note Date: 11/29/24 Please see procedure note for today's procedure in detail. Patient is clear to discharge from a podiatric standpoint. Cultures are pending and infectious disease is following for antibiotic management. Discussion with patient on the importance of outpatient follow-up. Patient has some doctors in [place] and some important you are on. He states that he lives in [place] and would prefer to go to [place] if this was an option. Discussed with him that we can refer him to the [place] wound care center that can see him for continued management of his left heel ulceration to which she is in agreement in proceeding with. Upon discharge patient is to follow-up at [place] wound care center. Wound care orders will be updated for iodoform packing in the central deepest area, Medihoney to necrotic areas, gauze, Kerlix, Manpreet bandage. Becky Rueda DPM, AACFAS
--- NOTE | 2024-11-29 20:42 | P.PN ---
Progress Note - Text Progress Note Date: 11/29/24 69-year-old male with past medical history of CHF, CAD with previous PCI, CVA, HTN, HLD, lymphedema, morbid obesity, chronic hypoxic respiratory failure on home oxygen, COPD, NARCISO, tobacco use disorder, who presented to the ER on 4 shortness of breath. Patient was unable to provide significant history on admission, was placed on BiPAP. Admitted for acute on chronic hypoxic respiratory failure secondary to COPD exacerbation, started on IV steroids, breathing treatment, pulmonology consulted. Patient was also started on IV ceftriaxone and vancomycin for possible cellulitis. He was found to have left heel wound, wound care consulted. 11/27: Seen examined at bedside, no acute events overnight, he was tolerating nasal cannula, discussed with RN, he had an episode of desaturation to low 80s in the evening, improved with increased nasal cannula to 4 L. Patient was irritable, he declined Accu-Cheks previously and has been declining morning blood work. He is afebrile, blood pressure elevated 147/82, SpO2 94% on 4 L. WBC up to 10.62, hemoglobin stable 12.1, sodium and potassium WNL, creatinine normal, bicarb 41.. Podiatry following, no plans for debridement. Per pulmonology, patient cleared for discharge. He will be continued on broad- spectrum antibiotics, wound cultures pending, blood cultures preliminary negative. I did have conversation today with patient as he was stating that he is going to leave AMA, we discussed his current medical conditions, need to wait for final wound cultures, and ongoing respiratory issues, he agreed to stay, he agreed to have blood work done. 1 to 60 mg daily as patient is obese. Chest x- ray ordered and showed no acute process and no significant changes from before. Will switch to Zosyn 3.375 every 8 hours as wound cultures growing Enterococcus, ID consulted This is a 67-year-old patient of Dr. Min. Chronic stable medical conditions include coronary artery disease with stent, hypertension, hyperlipidemia, obstructive sleep apnea, colonic diverticulosis, arthritis, chronic lumbar pain at L2 to L5, recurrent fractures, AICD. Chronic hypoxic respiratory failure on 2 L oxygen at home, morbid obesity, obesity hypoventilation syndrome chronic congestive heart failure from diastolic dysfunction EF 50-55%. Colostomy bag. COPD Patient now presents with increasing burning sensation in both lower extremities. He thinks it to become more red): Proximal in the right. He has chronic lower extremity swelling and redness. And venous stasis. He also has developed some chest pain. No shortness of breath. No fever no chills. 03/26/2023 Patient still with bilateral leg cellulitis, improving slowly and gradually Her medicines on [employer] Lead recommended to continue with the current cardiac medication and they signed off the case November 29: Patient seen this afternoon. Awaiting debridement of his wound of the left heel. Oral intake fair. Later today he underwent debridement of the left heel pressure ulcer.There was some necrosis and hyperkeratotic tissue that was all removed. Active Medications Albuterol/Ipratropium (Ipratropium-Albuterol 3 Ml Neb) 3 ml INHALATION RT-QID [facility] Last Admin: 11/29/24 16:17 Dose: 3 ml Amiodarone HCl (Amiodarone 200 Mg Tab) 200 mg PO BID [facility] Last Admin: 11/29/24 19:58 Dose: 200 mg Apixaban (Apixaban 5 Mg Tab) 5 mg PO BID [facility]; Protocol Last Admin: 11/29/24 19:59 Dose: 5 mg Aspirin (Aspirin 81 Mg) 81 mg PO DAILY [facility] Last Admin: 11/29/24 08:23 Dose: 81 mg Atorvastatin Calcium (Atorvastatin 40 Mg Tab) 40 mg PO HS [facility] Last Admin: 11/29/24 19:58 Dose: 40 mg Budesonide/Formoterol Fumarate (Symbicort 80-4.5 Mcg Inhaler) 1 puff INHALATION RT-BID [facility] Last Admin: 11/29/24 09:23 Dose: 1 puff Clopidogrel Bisulfate (Clopidogrel 75 Mg Tab) 75 mg PO DAILY [facility] Last Admin: 11/29/24 08:23 Dose: 75 mg Dextrose/Water (Dextrose 50% Syringe 50 Ml) 25 ml IVP PER PROTOCOL PRN; Protocol PRN Reason: Hypoglycemia Dextrose/Water (Dextrose 50% Syringe 50 Ml) 50 ml IVP PER PROTOCOL PRN; Protocol PRN Reason: Hypoglycemia Diltiazem HCl (Diltiazem Oral 60 Mg Tab) 60 mg PO Q8HR [facility] Last Admin: 11/29/24 16:59 Dose: 60 mg Famotidine (Famotidine 20 Mg Tab) 20 mg PO BID [facility] Last Admin: 11/29/24 19:58 Dose: 20 mg Furosemide (Furosemide 40 Mg Tab) 40 mg PO TID [facility] Last Admin: 11/29/24 19:59 Dose: 40 mg Piperacillin Sod/Tazobactam (Sod 3.375 gm/ Sodium Chloride) 100 mls @ 25 mls/hr IVPB Q8HR [facility] Last Admin: 11/29/24 16:59 Dose: 25 mls/hr Insulin Human Lispro (Insulin Lispro (Humalog) 100 Unit/Ml 10 Ml Vl) 0 unit SQ ACHS [facility]; Protocol Last Admin: 11/29/24 19:42 Dose: Not Given Isosorbide Mononitrate (Isosorbide Mononitrate Er 30 Mg Tab.Er.24h) 30 mg PO PC-LUNCH [facility] Last Admin: 11/29/24 14:02 Dose: 30 mg Losartan Potassium (Losartan 25 Mg Tab) 25 mg PO HS [facility] Last Admin: 11/29/24 19:58 Dose: 25 mg Metoprolol Tartrate (Metoprolol Tartrate 25 Mg Tab) 25 mg PO TID [facility] Last Admin: 11/29/24 19:58 Dose: 25 mg Morphine Sulfate (Morphine Sulfate 4 Mg/Ml Syringe) 4 mg IV Q4HR PRN PRN Reason: Severe Pain (Scale 7 to 10) Last Admin: 11/27/24 15:53 Dose: 4 mg Naloxone HCl (Naloxone 0.4 Mg/Ml 1 Ml Vial) 0.2 mg IV Q2M PRN PRN Reason: Opioid Reversal Ondansetron HCl (Ondansetron 4 Mg/2 Ml Vial) 4 mg IVP Q8HR PRN PRN Reason: Nausea And Vomiting Oxycodone/Acetaminophen (Oxycodone-Apap 10-325mg 1 Each Tab) 1 each PO Q6HR PRN PRN Reason: Pain Last Admin: 11/29/24 16:58 Dose: 1 each Pantoprazole Sodium (Pantoprazole 40 Mg Tablet) 40 mg PO AC-BRKFST [facility] Last Admin: 11/29/24 06:06 Dose: 40 mg Prednisone (Prednisone 20 Mg Tab) 60 mg PO DAILY [facility] Last Admin: 11/29/24 08:23 Dose: 60 mg Senna/Docusate Sodium (Sennosides-Docusate Sodium 1 Each Tab) 1 each PO BID [facility] Last Admin: 11/29/24 19:58 Dose: 1 each Tamsulosin HCl (Tamsulosin 0.4 Mg Cap.Er.24h) 0.4 mg PO DAILY [facility] Last Admin: 11/29/24 08:22 Dose: 0.4 mg Past medical history: COPD in an ex-smoker, CHF from diastolic 50-55%, obesity hypoventilation syndrome, coronary artery disease with stent, hyperlipidemia, hypertension, AICD, chronic low back pain L2 to L5 as chronic fractures, morbid obesity, home oxygen 2 L, and right rotator cuff. Social history: Lives alone . Smokes about half a pack a day, since 1969.. No alcohol. Physical examination: VITAL SIGNS: 97.6, 71, 18, 137 x 86, 94% on 4 L GENERAL: Reclining in bed EYES: Pupils equal. Conjunctiva normal. HEENT: External appearance of nose and ears normal, oral cavity grossly normal. NECK: JVD unable to assess; masses not palpable. HEART: Heart sounds muffled, edema. LUNGS: Respiratory rate increased, decreased breath sound. EXTREMITY: Area. of Redness above the ankle to below the knee. Edema. Chronic venous stasis changes with pigmentation. Left heel wound. ABDOMEN: Soft, nontender, colostomy bag , liver spleen not palpable. PSYCH: Alert and oriented x3; mood and affect anxious INVESTIGATIONS, reviewed in the clinical context: November 29: White count 7.7 hemoglobin 11.2 platelets 207 Potassium 4.4 BUN 39 creatinine 0.94 Left foot x-ray: No evidence of fracture. No evidence of osteomyelitis. Diffuse subcutaneous edema of the foot Assessment and plan: - Acute on chronic exacerbation of hypoxic respiratory failure secondary underlying COPD: Improving Initially required BiPAP. Now down to 4 L -Acute left heel decubitus ulcer Today underwent deep wound debridement by Dr. Rueda. Deep wound culture sent off. Postprocedure dressing in place On IV Zosyn per ID -Acute COPD exacerbation with current smoker. Better DuoNeb. Symbicort. Switch to oral prednisone -Chronic bilateral lower, venous insufficiency and possibly lymphedema, with deep pigmentation - Persistent atrial fibrillation. Rate controlled. Eliquis. Cardizem. Lopressor. -Chronic nicotine dependence, cigarette smoker Nicotine patch - peripheral neuropathy -Colostomy bag -Chronic congestive heart failure from diastolic dysfunction EF 50-55%: Stable Lasix. -Obesity hypoventilation syndrome -Coronary artery disease with stent Aspirin Lopressor -Hyperlipidemia Lipitor -Essential hypertension Cardizem. Lopressor. -AICD - BPH Flomax - GERD Protonix -Chronic low back pain from L2 to L5 osteoarthritis with chronic fractures -Morbid obesity BMI 59.9 Weight loss measures -Chronic hypoxic respiratory failure , secondary to underlying COPD on 2 L oxygen at home -Chronic medical debility uses a motorized wheelchair -Full code Left heel debridement carried out by Dr. Rueda today. Await input regarding antibiotics from ID. Patient very keen to go home.
--- NOTE | 2024-11-29 22:25 | P.PN ---
Subjective Progress Note Date: 11/29/24 Principal diagnosis: Reason for follow-up is left heel infected wound Patient is a 69-year-old male with a past medical history significant for Coronary Artery Disease (CAD), Chest Pain / Angina, COPD, CVA/TIA, Hyperlipidemia, Hypertension, Myocardial Infarction ([place]), Osteoarthritis (OA), Respiratory Disorder, Sleep Apnea/CPAP/BIPAP presented to the hospital days ago for evaluation of increasing shortness of breath also noticed to have a left heel infected wound with a positive culture prompting this consultation. On today's evaluation that is 11/29/2024,the patient remains to be afebrile, patient is on 4 L nasal cannula supplemental oxygen and denies any shortness of breath no chest pain or cough.Patient denies having any nausea or vomiting, no abdominal pain and no diarrhea has been reported. Patient white count is down to 7.79 creatinine 0.94 Objective - Vital Signs Vital signs: Vital Signs Temp 98.2 F 11/29/24 12:05 Pulse 72 11/29/24 13:15 Resp 16 11/29/24 12:05 BP 92/60 11/29/24 12:05 Pulse Ox 95 11/29/24 12:05 FiO2 40 11/29/24 04:08 Intake & Output 11/28/24 11/29/24 11/29/24 18:59 06:59 18:59 Intake Total 1020 10 360 Output Total 1740 2029 575 Balance - Weight 104.5 kg Intake: IV 10 Invasive Line 3 10 Oral 1020 360 Output: Urine 1739 2029 575 Other: Voiding Method Urinal Urinal # Voids 1 - Exam GENERAL DESCRIPTION: An elderly male up in the chair in no distress RESPIRATORY SYSTEM: Unlabored breathing , decreased breath sounds at bases HEART: S1 S2 regular rate and rhythm , ABDOMEN: Soft , no tenderness EXTREMITIES: Swelling to bilateral lower extremity left heel wound is currently dressed - Labs CBC & Chem 7: 11/29/24 06:48 11/28/24 11:15 Labs: Abnormal Lab Results - Last 24 Hours (Table) 11/29/24 Range/Units 06:48 RBC 3.66 L (4.40-5.60) 10*6/uL Hgb 11.2 L (13.0-17.0) g/dL Hct 36.9 L (39.6-50.0) % MCV 100.8 H (80.0-97.0) fL MCHC 30.4 L (32.0-37.0) g/dL Immature Gran # 0.09 H (0.00-0.04) 10*3/uL Eosinophils # 0.00 L (0.04-0.35) 10*3/uL Microbiology - Last 24 Hours (Table) 11/26/24 20:00 Gram Stain - Preliminary Foot - Left Wound Culture - Preliminary Pseudomonas aeruginosa Group D Enterococcus Corynebacterium striatum group Presumptive Staph aureus 11/26/24 20:00 Anaerobic Culture - Preliminary Heel - Left Prevotella bivia 11/27/24 08:30 Nasal Screen MRSA/MSSA - Final Nasal Swab Staphylococcus aureus,Not MRSA Assessment and Plan (1) Pressure ulcer, heel, left, unstageable Current Visit: Yes Status: Acute Code(s): L89.620 - PRESSURE ULCER OF LEFT HEEL, UNSTAGEABLE SNOMED Code(s): 26414380806912101 (2) Infected wound Current Visit: Yes Status: Acute Code(s): T14.8XXA - OTHER INJURY OF UNSPECIFIED BODY REGION, INITIAL ENCOUNTER; L08.9 - LOCAL INFECTION OF THE SKIN AND SUBCUTANEOUS TISSUE, UNSP SNOMED Code(s): 34879156 Plan: 1patient with a left heel unstageable pressure ulcer and the patient did have a some necrotic area and fluctuation mild foul-smelling with multiple pathogen growing including Pseudomonas Enterococcus faecalis and Prevotella. 2patient benefit from surgical debridement and deep culture to determine s ignificance of the superficial culture and need for more aggressive antibiotic this has been discussed in detail with Dr. Lake who will be doing the procedure this afternoon 3patient is currently being treated with Zosyn while waiting for the deep culture to be finalized Dictation was produced using [employer] dictation software. please excuse any grammatical, word or spelling errors. Time with Patient: Less than 30
[2024-11-29] MEDS: NICOTINE 14MG/24HR PATCH TRANSDERM SCH (23:15)
--- NOTE | 2024-11-30 14:40 | P.PN ---
Subjective Progress Note Date: 11/30/24 Principal diagnosis: Reason for follow-up is left heel infected wound Patient is a 69-year-old male with a past medical history significant for Coronary Artery Disease (CAD), Chest Pain / Angina, COPD, CVA/TIA, Hyperlipidemia, Hypertension, Myocardial Infarction ([place]), Osteoarthritis (OA), Respiratory Disorder, Sleep Apnea/CPAP/BIPAP presented to the hospital days ago for evaluation of increasing shortness of breath also noticed to have a left heel infected wound with a positive culture prompting this consultation. On today's evaluation that is 11/30/2024, the patient continues to be afebrile, the patient is on 3 L nasal oxygen and breathing comfortably, the Pt denies having any chest pain or cough, the patient denies having any abdominal pain no vomiting or any diarrhea, denies any worsening pain to the left heel wound patient is insisting on going home. Patient white count is 7.7 as of yesterday deep culture currently pending initial culture grew Pseudomonas Enterococcus presented Staph aureus and Prevotella Objective - Vital Signs Vital signs: Vital Signs Temp 97.8 F 11/30/24 09:18 Pulse 70 11/30/24 12:21 Resp 20 11/30/24 11:05 BP 124/70 11/30/24 11:05 Pulse Ox 95 11/30/24 11:05 FiO2 40 11/30/24 00:00 Intake & Output 11/29/24 11/30/24 11/30/24 18:59 06:59 18:59 Intake Total 360 20 908 Output Total 575 1300 Balance -215 -1280 908 Weight 104.5 kg Intake: IV 20 10 Invasive Line 3 20 10 Oral 360 898 Output: Urine 575 1300 Other: Voiding Method Urinal Urinal Urinal - Exam GENERAL DESCRIPTION: An elderly male up in the chair in no distress RESPIRATORY SYSTEM: Unlabored breathing , decreased breath sounds at bases HEART: S1 S2 regular rate and rhythm , ABDOMEN: Soft , no tenderness EXTREMITIES: Swelling to bilateral lower extremity left heel wound is currently dressed - Labs CBC & Chem 7: 11/29/24 06:48 11/28/24 11:15 Labs: Microbiology - Last 24 Hours (Table) 11/24/24 20:53 Blood Culture - Final Blood 11/26/24 20:00 Anaerobic Culture - Final Heel - Left Prevotella bivia Assessment and Plan (1) Pressure ulcer, heel, left, unstageable Current Visit: Yes Status: Acute Code(s): L89.620 - PRESSURE ULCER OF LEFT HEEL, UNSTAGEABLE SNOMED Code(s): 86386897294372324 (2) Infected wound Current Visit: Yes Status: Acute Code(s): T14.8XXA - OTHER INJURY OF UNSPECIFIED BODY REGION, INITIAL ENCOUNTER; L08.9 - LOCAL INFECTION OF THE SKIN AND SUBCUTANEOUS TISSUE, UNSP SNOMED Code(s): 29898889 Plan: 1patient with a left heel unstageable pressure ulcer and the patient did have a some necrotic area and fluctuation mild foul-smelling with multiple pathogen growing including Pseudomonas Enterococcus faecalis and Prevotella. 2patient benefit from surgical debridement and deep culture to determine significance of the superficial culture and need for more aggressive antibiotic this has been discussed in detail with Dr. Lake who did a bedside debridement of the left heel wound noticed a pocket of pus which has been sent for culture those are pending 3patient is currently being treated with Zosyn, patient has been insisting on going home unfortunately patient is on amiodarone and I will not be able to use the oral Cipro for the Pseudomonas that has grown initial culture for now we will continue the patient on Zosyn and wait for the deep culture that should determine his discharge antibiotics Dictation was produced using [employer] dictation software. please excuse any grammatical, word or spelling errors. Time with Patient: Less than 30
--- NOTE | 2024-11-30 16:06 | P.PN ---
Subjective Progress Note Date: 11/30/24 This is a 69-year-old morbidly obese male patient, presented to the Emergency Department because of worsening shortness of breath the patient was unable to volunteer any significant history. The patient was found to be in acute EQUIPMENT STERILIZER exacerbation. The patient is morbidly obese and has chronic edema lower extremities/lymphedema the patient has obvious cellulitis of the lower extremities bilaterally with chronic venous stasis. Immediately, the patient was placed on a BiPAP the patient remains on a BiPAP at a pressure of 12.5 cm of water with an FiO2 of 40%. He is calm and comfortable on the BiPAP and is generating a tidal volume of more than 400. His minute ventilation is around 12 L/min. Blood gases were not done. In the emergency, the patient was found to have a white cell count of 9.3 with a hemoglobin 11.1 and a platelet count of 222. Normal coagulation profile. Normal renal function with a BUN of 19 and a creatinine of 0.9. Serum bicarb was 40 consistent with chronic hypercapnic r espiratory failure. proBNP level was 411. Troponins were negative. Viral screen was negative. The patient was initially started on IV Rocephin and I added vancomycin regarding cellulitis of lower extremities. The patient is on DuoNeb nebulizer treatments, IV Solu-Medrol and Lovenox for DVT prophylaxis. He is also on normal saline at rate of 75 cc an hour. He is normotensive. Current pulse ox is 99% and the above-mentioned BiPAP settings. Chest x-ray was also noted and the patient has no acute abnormalities. The patient has small lung volumes. No airspace disease. No consolidation. No pleural effusion. Comorbidities include morbid obesity, hypertension, hyperlipidemia, COPD and the patient is a chronic smoker. He also has obstructive sleep apnea/obesity hypoventilation syndrome. Previous history of CHF with previous history of AICD placement, stroke back in 2004 along with chronic difficult mobility and degenerative lumbar disc disease and vertebral fracture L2-L5 and mild canal stenosis. He is also known to have diverticulosis. He has undergone also previous bowel resection the patient has a colostomy in place which is currently functional. This was inserted back in 2018. The patient has had also previous hospitalizations for bilateral lower extremity cellulitis and the most recent hospitalization was in February 2023. The patient is seen today November 26, 2024 in follow-up on the selective care unit. He is currently sitting up in bed. Awake and alert no acute distress. Maintaining O2 saturations in the 90s on 4 L/min per nasal cannula. He is alternating with BiPAP 12/5 and 40% and wearing it at night. Blood culture pending. White count 8.4. Hemoglobin 11.3. Platelets 237. Sodium 136. Potassium 4.5. Bicarb 37. BUN 21. Creatinine 0.68. Glucose 113. He remains on DuoNeb inhalations, Symbicort, Solu-Medrol. Remains on oral diuretics. Ant ibiotics in the form of vancomycin and ceftriaxone. The patient is seen today November 27, 2024 in follow-up on the selective care unit. He is currently resting in bed. Awake and alert in no acute distress. Continues to utilize BiPAP 12/5 and 40% FiO2 throughout the evening and during the day while napping. Otherwise he is maintaining good O2 saturations in the 90s on 3 L/min per nasal cannula. White count 9.9. Hemoglobin 11.2. Platelets 232. Sodium 140. Potassium 4.5. Bicarb 40. BUN 31. Creatinine 0.88. Glucose 142. Blood culture revealed no growth. He remains on DuoNeb inhalations, Symbicort, Solu-Medrol. Continued on vancomycin and ceftriaxone. Anticoagulated with Eliquis. Remains on oral diuretics. The patient is seen today November 28, 2024 in follow-up on the selective care unit. He is currently sitting up in a chair at the bedside. Awake and alert in no acute distress. He denies any worsening shortness of breath, cough or congestion. Feeling back to his baseline. He is maintaining O2 saturations in the 90s on 4 L/min per nasal cannula. He is afebrile. Hemodynamically stable. Chest x-ray again shows chronic changes but no acute pulmonary process. Left foot wound cultures positive for gram-negative bacilli. Group D Enterococcus. White count 10.6. Hemoglobin 12.1. Platelets 231. Sodium 143. Potassium 4.4. Bicarb 41. BUN 39. Creatinine 0.94. Glucose 115. He is continued on DuoNeb inhalations, Symbicort, prednisone taper. He remains on Zosyn. Anticoagulated with Eliquis. The patient is seen today November 29, 2024 in follow-up on the selective care unit. He was awake and alert in no acute distress. Sitting up in a chair at the bedside. Maintaining O2 saturations in the mid 90s on 4 L/min per nasal cannula. He has been afebrile. Hemodynamically stable. He denies any worsening shortness of breath, cough or congestion. The left heel wound is positive for Pseudomonas aeruginosa, group D Enterococcus, presumptive Staph aureus and Prevotella bivia. White count 7.7. Hemoglobin 11.2. Platelets 207. He remains on DuoNeb inhalations, Symbicort, prednisone taper. Anticoagulated with Eliquis. Remains on oral diuretics. Antibiotics in the form of Zosyn. The patient is seen today November 30, 2024 in follow-up on the selective care unit. He is currently sitting up in a chair at the bedside. Awake and alert in no acute distress. He denies any worsening shortness of breath, cough or congestion. He is maintaining O2 saturations in the 90s on 3 L/min per nasal cannula. Alternating with BiPAP 12/5 and 40% FiO2. He remains afebrile. Hemodynamically stable. The left heel wound culture is positive for Pseudomonas aeruginosa, group D Enterococcus, presumptive Staph aureus and Prevotella bivia. No new labs today. He remains on Zosyn. NicoDerm patch in place. Continued on DuoNeb and elations, Symbicort. Anticoagulated with Eliquis. Remains on oral diuretics. Objective - Vital Signs Vital signs: Vital Signs Temp 97.8 F 11/30/24 09:18 Pulse 70 11/30/24 12:21 Resp 20 11/30/24 11:05 BP 124/70 11/30/24 11:05 Pulse Ox 95 11/30/24 11:05 FiO2 40 11/30/24 00:00 Intake & Output 11/29/24 11/30/24 11/30/24 18:59 06:59 18:59 Intake Total 360 20 918 Output Total 575 1300 725 Balance -215 -1280 193 Weight 104.5 kg Intake: IV 20 20 Invasive Line 3 20 20 Oral 360 898 Output: Urine 575 1300 725 Other: Voiding Method Urinal Urinal Urinal # Voids 2 - Exam GENERAL EXAM: Alert, morbidly obese, 69-year-old male, up in a chair, on 4 L reuben al cannula, comfortable in no apparent distress. HEAD: Normocephalic. EYES: Normal reaction of pupils, equal size. NOSE: Clear with pink turbinates. THROAT: No erythema or exudates. NECK: No masses, no JVD. CHEST: No chest wall deformity. LUNGS: Equal air entry with no crackles, wheeze, rhonchi or dullness. CVS: S1 and S2 normal with no audible murmur, regular rhythm. ABDOMEN: No hepatosplenomegaly, normal bowel sounds, no guarding or rigidity. SPINE: No scoliosis or deformity SKIN: Cellulitis and chronic venous stasis of the lower extremities. Ulceration to the left heel CENTRAL NERVOUS SYSTEM: No focal deficits, tone is normal in all 4 extremities. EXTREMITIES: Manpreet wrap to the left lower extremity. There is 1-2+ peripheral edema. No clubbing, no cyanosis. Peripheral pulses are intact. - Labs CBC & Chem 7: 11/29/24 06:48 11/28/24 11:15 Labs: Microbiology - Last 24 Hours (Table) 11/29/24 16:23 Gram Stain - Preliminary Other - Other 11/24/24 20:53 Blood Culture - Final Blood 11/26/24 20:00 Anaerobic Culture - Final Heel - Left Prevotella bivia Assessment and Plan Assessment: Acute on chronic hypoxic respiratory failure likely secondary to COPD exacerbation. The patient is actively bronchospastic and wheezy. At the same time, the patient has an underlying septic event related to cellulitis of the lower extremities contributing to his respiratory failure. Currently on BiPAP at a pressure of 12/5 with an FiO2 of 40% alternating with oxygen at 4 L/min per nasal cannula. Chest x-ray reveals no acute abnormalities. proBNP level is not elevated. White cell count is normal and the patient has no hemodynamic instability Left foot wound culture positive for Pseudomonas aeruginosa, group D Enterococcus, Prevotella bivia. Currently on Zosyn. Status post debridement Morbid obesity COPD with chronic hypoxic/hypercapnic respiratory failure along with component of obstructive sleep apnea/obesity hypoventilation syndrome NARCISO/OHS with chronic hypercapnic respiratory failure and chronic metabolic alkalosis Chronic smoker Coronary artery disease with previous coronary intervention PCI and stenting x 4 History of ischemic cardiomyopathy and the patient has a pacer/AICD in place and the most recent echocardiogram from 2019 showed a preserved LV function History of CVA Hypertension Hyperlipidemia Chronic lower extremity lymphedema/chronic venous stasis with recurrent cellulitis and the patient has active signs of cellulitis at this point Previous history of bowel resection the patient has diverting colostomy History of degenerative lumbar disc disease with vertebral fracture L2-L5 and spinal canal stenosis degenerative arthritis History of diverticular disease Peripheral neuropathy Chronic medical debility and the patient uses a motorized wheelchair. He has chronic hypoxic respiratory failure maintained on oxygen 2 L/min nasal cannula Plan: The patient was seen and evaluated Labs and medications reviewed Status post debridement of the left heel ulcer Currently on Zosyn Continue DuoNeb inhalations Continue Symbicort Continue diuretics Complete a prednisone taper Titrate the FiO2 as tolerated Continue BiPAP support as tolerated Increase his activity as tolerated Stable from the pulmonary standpoint We will see him as needed I have personally seen and examined the patient, performed the documentation and the assessment and plan as written. Number of minutes spent on the visit: 10 Dictation was produced using [employer] dictation software. Please excuse any grammatical, word or spelling errors.
--- NOTE | 2024-11-30 17:32 | P.PN ---
Progress Note - Text Progress Note Date: 11/30/24 69-year-old male with past medical history of CHF, CAD with previous PCI, CVA, HTN, HLD, lymphedema, morbid obesity, chronic hypoxic respiratory failure on home oxygen, COPD, NARCISO, tobacco use disorder, who presented to the ER on 4 shortness of breath. Patient was unable to provide significant history on admission, was placed on BiPAP. Admitted for acute on chronic hypoxic respiratory failure secondary to COPD exacerbation, started on IV steroids, breathing treatment, pulmonology consulted. Patient was also started on IV ceftriaxone and vancomycin for possible cellulitis. He was found to have left heel wound, wound care consulted. 11/27: Seen examined at bedside, no acute events overnight, he was tolerating nasal cannula, discussed with RN, he had an episode of desaturation to low 80s in the evening, improved with increased nasal cannula to 4 L. Patient was irritable, he declined Accu-Cheks previously and has been declining morning blood work. He is afebrile, blood pressure elevated 147/82, SpO2 94% on 4 L. WBC up to 10.62, hemoglobin stable 12.1, sodium and potassium WNL, creatinine normal, bicarb 41.. Podiatry following, no plans for debridement. Per pulmonology, patient cleared for discharge. He will be continued on broad- spectrum antibiotics, wound cultures pending, blood cultures preliminary negative. I did have conversation today with patient as he was stating that he is going to leave AMA, we discussed his current medical conditions, need to wait for final wound cultures, and ongoing respiratory issues, he agreed to stay, he agreed to have blood work done. 1 to 60 mg daily as patient is obese. Chest x- ray ordered and showed no acute process and no significant changes from before. Will switch to Zosyn 3.375 every 8 hours as wound cultures growing Enterococcus, ID consulted This is a 67-year-old patient of Dr. Min. Chronic stable medical conditions include coronary artery disease with stent, hypertension, hyperlipidemia, obstructive sleep apnea, colonic diverticulosis, arthritis, chronic lumbar pain at L2 to L5, recurrent fractures, AICD. Chronic hypoxic respiratory failure on 2 L oxygen at home, morbid obesity, obesity hypoventilation syndrome chronic congestive heart failure from diastolic dysfunction EF 50-55%. Colostomy bag. COPD Patient now presents with increasing burning sensation in both lower extremities. He thinks it to become more red): Proximal in the right. He has chronic lower extremity swelling and redness. And venous stasis. He also has developed some chest pain. No shortness of breath. No fever no chills. 03/26/2023 Patient still with bilateral leg cellulitis, improving slowly and gradually Her medicines on cefazolin Instructional Consultant recommended to continue with the current cardiac medication and they signed off the case November 29: Patient seen this afternoon. Awaiting debridement of his wound of the left heel. Oral intake fair. Later today he underwent debridement of the left heel pressure ulcer.There was some necrosis and hyperkeratotic tissue that was all removed. November 30: Resting in a recliner. Discussed with ID. Pending deep cultures. Which will determine antibiotics. Patient informed. Oral intake fair. Breathing stable. IV Zosyn. Active Medications Albuterol/Ipratropium (Ipratropium-Albuterol 3 Ml Neb) 3 ml INHALATION RT-QID [facility] Last Admin: 11/30/24 16:07 Dose: 3 ml Amiodarone HCl (Amiodarone 200 Mg Tab) 200 mg PO BID [facility] Last Admin: 11/30/24 09:20 Dose: 200 mg Apixaban (Apixaban 5 Mg Tab) 5 mg PO BID [facility]; Protocol Last Admin: 11/30/24 09:20 Dose: 5 mg Aspirin (Aspirin 81 Mg) 81 mg PO DAILY [facility] Last Admin: 11/30/24 09:20 Dose: 81 mg Atorvastatin Calcium (Atorvastatin 40 Mg Tab) 40 mg PO HS [facility] Last Admin: 11/29/24 19:58 Dose: 40 mg Budesonide/Formoterol Fumarate (Symbicort 80-4.5 Mcg Inhaler) 1 puff INHALATION RT-BID [facility] Last Admin: 11/30/24 08:05 Dose: 1 puff Clopidogrel Bisulfate (Clopidogrel 75 Mg Tab) 75 mg PO DAILY [facility] Last Admin: 11/30/24 09:20 Dose: 75 mg Dextrose/Water (Dextrose 50% Syringe 50 Ml) 25 ml IVP PER PROTOCOL PRN; Protocol PRN Reason: Hypoglycemia Dextrose/Water (Dextrose 50% Syringe 50 Ml) 50 ml IVP PER PROTOCOL PRN; Protocol PRN Reason: Hypoglycemia Diltiazem HCl (Diltiazem Oral 60 Mg Tab) 60 mg PO Q8HR [facility] Last Admin: 11/30/24 15:21 Dose: 60 mg Famotidine (Famotidine 20 Mg Tab) 20 mg PO BID [facility] Last Admin: 11/30/24 09:20 Dose: 20 mg Furosemide (Furosemide 40 Mg Tab) 40 mg PO TID [facility] Last Admin: 11/30/24 15:20 Dose: 40 mg Piperacillin Sod/Tazobactam (Sod 3.375 gm/ Sodium Chloride) 100 mls @ 25 mls/hr IVPB Q8HR [facility] Last Admin: 11/30/24 15:21 Dose: 25 mls/hr Insulin Human Lispro (Insulin Lispro (Humalog) 100 Unit/Ml 10 Ml Vl) 0 unit SQ ACHS [facility]; Protocol Last Admin: 11/30/24 16:34 Dose: Not Given Isosorbide Mononitrate (Isosorbide Mononitrate Er 30 Mg Tab.Er.24h) 30 mg PO PC-LUNCH [facility] Last Admin: 11/30/24 13:13 Dose: 30 mg Losartan Potassium (Losartan 25 Mg Tab) 25 mg PO HS [facility] Last Admin: 11/29/24 19:58 Dose: 25 mg Metoprolol Tartrate (Metoprolol Tartrate 25 Mg Tab) 25 mg PO TID [facility] Last Admin: 11/30/24 15:21 Dose: 25 mg Naloxone HCl (Naloxone 0.4 Mg/Ml 1 Ml Vial) 0.2 mg IV Q2M PRN PRN Reason: Opioid Reversal Nicotine (Nicotine 14mg/24hr Patch) 1 patch TRANSDERM DAILY [facility] Last Admin: 11/30/24 09:29 Dose: Not Given Ondansetron HCl (Ondansetron 4 Mg/2 Ml Vial) 4 mg IVP Q8HR PRN PRN Reason: Nausea And Vomiting Oxycodone/Acetaminophen (Oxycodone-Apap 10-325mg 1 Each Tab) 1 each PO Q6HR PRN PRN Reason: Pain Last Admin: 11/30/24 17:30 Dose: 1 each Pantoprazole Sodium (Pantoprazole 40 Mg Tablet) 40 mg PO AC-BRKFST [facility] Last Admin: 11/30/24 06:01 Dose: 40 mg Prednisone (Prednisone 20 Mg Tab) 60 mg PO DAILY [facility] Last Admin: 11/30/24 09:20 Dose: 60 mg Senna/Docusate Sodium (Sennosides-Docusate Sodium 1 Each Tab) 1 each PO BID [facility] Last Admin: 11/30/24 09:20 Dose: 1 each Tamsulosin HCl (Tamsulosin 0.4 Mg Cap.Er.24h) 0.4 mg PO DAILY [facility] Last Admin: 11/30/24 09:20 Dose: 0.4 mg Past medical history: COPD in an ex-smoker, CHF from diastolic 50-55%, obesity hypoventilation syndrome, coronary artery disease with stent, hyperlipidemia, hypertension, AICD, chronic low back pain L2 to L5 as chronic fractures, morbid obesity, home oxygen 2 L, and right rotator cuff. Social history: Lives alone . Smokes about half a pack a day, since 1969.. No alcohol. Physical examination: VITAL SIGNS: 97.8, 85, 20, 124 x 70, 95 Wilfrido 3 L GENERAL: Up in recliner EYES: Pupils equal. Conjunctiva normal. HEENT: External appearance of nose and ears normal, oral cavity grossly normal. NECK: JVD unable to assess; masses not palpable. HEART: Heart sounds muffled, edema. LUNGS: Respiratory rate increased, decreased breath sound. EXTREMITY: Area. of Redness above the ankle to below the knee. Edema. Chronic venous stasis changes with pigmentation. Left heel wound. ABDOMEN: Soft, nontender, colostomy bag , liver spleen not palpable. PSYCH: Alert and oriented x3; mood and affect anxious INVESTIGATIONS, reviewed in the clinical context: November 29: White count 7.7 hemoglobin 11.2 platelets 207 Potassium 4.4 BUN 39 creatinine 0.94 Left foot x-ray: No evidence of fracture. No evidence of osteomyelitis. Diffuse subcutaneous edema of the foot Assessment and plan: - Acute on chronic exacerbation of hypoxic respiratory failure secondary underlying COPD: Improving Initially required BiPAP. Now down to 4 L -Acute left heel decubitus ulcer Today underwent deep wound debridement by Dr. Rueda. Deep wound culture- pending. Postprocedure dressing in place On IV Zosyn per ID -Acute COPD exacerbation with current smoker. Better DuoNeb. Symbicort. Switch to oral prednisone -Chronic bilateral lower, venous insufficiency and possibly lymphedema, with deep pigmentation - Persistent atrial fibrillation. Rate controlled. Eliquis. Cardizem. Lopressor. -Chronic nicotine dependence, cigarette smoker Nicotine patch - peripheral neuropathy -Colostomy bag -Chronic congestive heart failure from diastolic dysfunction EF 50-55%: Stable Lasix. -Obesity hypoventilation syndrome -Coronary artery disease with stent Aspirin Lopressor -Hyperlipidemia Lipitor -Essential hypertension Cardizem. Lopressor. -AICD - BPH Flomax - GERD Protonix -Chronic low back pain from L2 to L5 osteoarthritis with chronic fractures -Morbid obesity BMI 59.9 Weight loss measures -Chronic hypoxic respiratory failure , secondary to underlying COPD on 2 L oxygen at home -Chronic medical debility uses a motorized wheelchair -Full code Pending deep tissue cultures from the left heel. Continue current antibiotic
--- NOTE | 2024-12-01 14:42 | P.PN ---
Progress Note - Text Progress Note Date: 12/01/24 69-year-old male with past medical history of CHF, CAD with previous PCI, CVA, HTN, HLD, lymphedema, morbid obesity, chronic hypoxic respiratory failure on home oxygen, COPD, NARCISO, tobacco use disorder, who presented to the ER on 4 shortness of breath. Patient was unable to provide significant history on admission, was placed on BiPAP. Admitted for acute on chronic hypoxic respiratory failure secondary to COPD exacerbation, started on IV steroids, breathing treatment, pulmonology consulted. Patient was also started on IV ceftriaxone and vancomycin for possible cellulitis. He was found to have left heel wound, wound care consulted. 11/27: Seen examined at bedside, no acute events overnight, he was tolerating nasal cannula, discussed with RN, he had an episode of desaturation to low 80s in the evening, improved with increased nasal cannula to 4 L. Patient was irritable, he declined Accu-Cheks previously and has been declining morning blood work. He is afebrile, blood pressure elevated 147/82, SpO2 94% on 4 L. WBC up to 10.62, hemoglobin stable 12.1, sodium and potassium WNL, creatinine normal, bicarb 41.. Podiatry following, no plans for debridement. Per pulmonology, patient cleared for discharge. He will be continued on broad- spectrum antibiotics, wound cultures pending, blood cultures preliminary negative. I did have conversation today with patient as he was stating that he is going to leave AMA, we discussed his current medical conditions, need to wait for final wound cultures, and ongoing respiratory issues, he agreed to stay, he agreed to have blood work done. 1 to 60 mg daily as patient is obese. Chest x- ray ordered and showed no acute process and no significant changes from before. Will switch to Zosyn 3.375 every 8 hours as wound cultures growing Enterococcus, ID consulted This is a 67-year-old patient of Dr. Min. Chronic stable medical conditions include coronary artery disease with stent, hypertension, hyperlipidemia, obstructive sleep apnea, colonic diverticulosis, arthritis, chronic lumbar pain at L2 to L5, recurrent fractures, AICD. Chronic hypoxic respiratory failure on 2 L oxygen at home, morbid obesity, obesity hypoventilation syndrome chronic congestive heart failure from diastolic dysfunction EF 50-55%. Colostomy bag. COPD Patient now presents with increasing burning sensation in both lower extremities. He thinks it to become more red): Proximal in the right. He has chronic lower extremity swelling and redness. And venous stasis. He also has developed some chest pain. No shortness of breath. No fever no chills. 03/26/2023 Patient still with bilateral leg cellulitis, improving slowly and gradually Her medicines on cefazolin Certified Nursing Assistant recommended to continue with the current cardiac medication and they signed off the case November 29: Patient seen this afternoon. Awaiting debridement of his wound of the left heel. Oral intake fair. Later today he underwent debridement of the left heel pressure ulcer.There was some necrosis and hyperkeratotic tissue that was all removed. November 30: Resting in a recliner. Discussed with ID. Pending deep cultures. Which will determine antibiotics. Patient informed. Oral intake fair. Breathing stable. IV Zosyn. December 01: Comfortable sitting up. Eating well. Pain controlled. Awaiting cultures. Continue IV Zosyn. Active Medications Albuterol/Ipratropium (Ipratropium-Albuterol 3 Ml Neb) 3 ml INHALATION RT-QID [facility] Last Admin: 12/01/24 12:15 Dose: 3 ml Amiodarone HCl (Amiodarone 200 Mg Tab) 200 mg PO BID [facility] Last Admin: 12/01/24 09:09 Dose: 200 mg Apixaban (Apixaban 5 Mg Tab) 5 mg PO BID [facility]; Protocol Last Admin: 12/01/24 09:10 Dose: 5 mg Aspirin (Aspirin 81 Mg) 81 mg PO DAILY [facility] Last Admin: 12/01/24 09:10 Dose: 81 mg Atorvastatin Calcium (Atorvastatin 40 Mg Tab) 40 mg PO HS [facility] Last Admin: 11/30/24 19:46 Dose: 40 mg Budesonide/Formoterol Fumarate (Symbicort 80-4.5 Mcg Inhaler) 1 puff INHALATION RT-BID [facility] Last Admin: 12/01/24 08:48 Dose: 1 puff Clopidogrel Bisulfate (Clopidogrel 75 Mg Tab) 75 mg PO DAILY [facility] Last Admin: 12/01/24 09:09 Dose: 75 mg Dextrose/Water (Dextrose 50% Syringe 50 Ml) 25 ml IVP PER PROTOCOL PRN; Protocol PRN Reason: Hypoglycemia Dextrose/Water (Dextrose 50% Syringe 50 Ml) 50 ml IVP PER PROTOCOL PRN; Protocol PRN Reason: Hypoglycemia Diltiazem HCl (Diltiazem Oral 60 Mg Tab) 60 mg PO Q8HR [facility] Last Admin: 12/01/24 09:10 Dose: 60 mg Famotidine (Famotidine 20 Mg Tab) 20 mg PO BID [facility] Last Admin: 12/01/24 09:10 Dose: 20 mg Furosemide (Furosemide 40 Mg Tab) 40 mg PO TID [facility] Last Admin: 12/01/24 09:09 Dose: 40 mg Piperacillin Sod/Tazobactam (Sod 3.375 gm/ Sodium Chloride) 100 mls @ 25 mls/hr IVPB Q8HR [facility] Last Admin: 12/01/24 09:10 Dose: 25 mls/hr Insulin Human Lispro (Insulin Lispro (Humalog) 100 Unit/Ml 10 Ml Vl) 0 unit SQ ACHS [facility]; Protocol Last Admin: 12/01/24 12:32 Dose: Not Given Isosorbide Mononitrate (Isosorbide Mononitrate Er 30 Mg Tab.Er.24h) 30 mg PO PC-LUNCH [facility] Last Admin: 12/01/24 13:55 Dose: 30 mg Losartan Potassium (Losartan 25 Mg Tab) 25 mg PO HS [facility] Last Admin: 11/30/24 19:47 Dose: 25 mg Metoprolol Tartrate (Metoprolol Tartrate 25 Mg Tab) 25 mg PO TID [facility] Last Admin: 12/01/24 09:10 Dose: 25 mg Naloxone HCl (Naloxone 0.4 Mg/Ml 1 Ml Vial) 0.2 mg IV Q2M PRN PRN Reason: Opioid Reversal Nicotine (Nicotine 14mg/24hr Patch) 1 patch TRANSDERM DAILY [facility] Last Admin: 12/01/24 09:14 Dose: Not Given Ondansetron HCl (Ondansetron 4 Mg/2 Ml Vial) 4 mg IVP Q8HR PRN PRN Reason: Nausea And Vomiting Oxycodone/Acetaminophen (Oxycodone-Apap 10-325mg 1 Each Tab) 1 each PO Q6HR PRN PRN Reason: Pain Last Admin: 12/01/24 11:28 Dose: 1 each Pantoprazole Sodium (Pantoprazole 40 Mg Tablet) 40 mg PO AC-BRKFST [facility] Last Admin: 12/01/24 06:12 Dose: 40 mg Petrolatum (Zinc Oxide Paste (Z-Guard) 1 Applic) 1 applic TOPICAL BID PRN; Protocol PRN Reason: Wound Healing Prednisone (Prednisone 20 Mg Tab) 60 mg PO DAILY [facility] Last Admin: 12/01/24 09:10 Dose: 60 mg Senna/Docusate Sodium (Sennosides-Docusate Sodium 1 Each Tab) 1 each PO BID [facility] Last Admin: 12/01/24 09:09 Dose: 1 each Tamsulosin HCl (Tamsulosin 0.4 Mg Cap.Er.24h) 0.4 mg PO DAILY [facility] Last Admin: 12/01/24 09:10 Dose: 0.4 mg Past medical history: COPD in an ex-smoker, CHF from diastolic 50-55%, obesity hypoventilation syndrome, coronary artery disease with stent, hyperlipidemia, hypertension, AICD, chronic low back pain L2 to L5 as chronic fractures, morbid obesity, home oxygen 2 L, and right rotator cuff. Social history: Lives alone . Smokes about half a pack a day, since 1969.. No alcohol. Physical examination: VITAL SIGNS: 76, 17, 132% 3, 96.3 L GENERAL: Up in recliner, comfortable watching TV EYES: Pupils equal. Conjunctiva normal. HEENT: External appearance of nose and ears normal, oral cavity grossly normal. NECK: JVD unable to assess; masses not palpable. HEART: Heart sounds muffled, edema. LUNGS: Respiratory rate increased, decreased breath sound. EXTREMITY: Area. of Redness above the ankle to below the knee. Edema. Chronic venous stasis changes with pigmentation. Left heel wound. ABDOMEN: Soft, nontender, colostomy bag , liver spleen not palpable. PSYCH: Alert and oriented x3; mood and affect anxious INVESTIGATIONS, reviewed in the clinical context: November 29: White count 7.7 hemoglobin 11.2 platelets 207 Potassium 4.4 BUN 39 creatinine 0.94 Left foot x-ray: No evidence of fracture. No evidence of osteomyelitis. Diffuse subcutaneous edema of the foot Assessment and plan: - Acute on chronic exacerbation of hypoxic respiratory failure secondary underlying COPD: Improving Initially required BiPAP. Now down to 4 L -Acute left heel decubitus ulcer Today underwent deep wound debridement by Dr. Rueda. Deep wound culture- pending. Postprocedure dressing in place On IV Zosyn per ID -Acute COPD exacerbation with current smoker. Better DuoNeb. Symbicort. Switch to oral prednisone -Chronic bilateral lower, venous insufficiency and possibly lymphedema, with deep pigmentation - Persistent atrial fibrillation. Rate controlled. Eliquis. Cardizem. Lopressor. -Chronic nicotine dependence, cigarette smoker Nicotine patch - peripheral neuropathy -Colostomy bag -Chronic congestive heart failure from diastolic dysfunction EF 50-55%: Stable Lasix. -Obesity hypoventilation syndrome -Coronary artery disease with stent Aspirin Lopressor -Hyperlipidemia Lipitor -Essential hypertension Cardizem. Lopressor. -AICD - BPH Flomax - GERD Protonix -Chronic low back pain from L2 to L5 osteoarthritis with chronic fractures -Morbid obesity BMI 59.9 Weight loss measures -Chronic hypoxic respiratory failure , secondary to underlying COPD on 2 L oxygen at home -Chronic medical debility uses a motorized wheelchair -Full code Await cultures. Continue current treatment.
--- NOTE | 2024-12-01 16:04 | P.PN ---
Subjective Progress Note Date: 12/01/24 Principal diagnosis: Reason for follow-up is left heel infected wound Patient is a 69-year-old male with a past medical history significant for Coronary Artery Disease (CAD), Chest Pain / Angina, COPD, CVA/TIA, Hyperlipidemia, Hypertension, Myocardial Infarction ([place]), Osteoarthritis (OA), Respiratory Disorder, Sleep Apnea/CPAP/BIPAP presented to the hospital days ago for evaluation of increasing shortness of breath also noticed to have a left heel infected wound with a positive culture prompting this consultation. On today's evaluation that is 12/02/2023, patient did have a temperature of 98.4 F this morning and denies having any chills, patient is on 3 L current oxygen and breathing comfortably no chest pain or cough, the patient did not have any nausea vomiting abdominal pain or any diarrhea, denies any worsening pain to the left heel area. No new lab has been obtained today deep culture currently growing Pseudomonas and Enterococcus faecalis Objective - Vital Signs Vital signs: Vital Signs Temp 97.7 F 12/01/24 09:05 Pulse 76 12/01/24 12:15 Resp 17 12/01/24 11:18 BP 103/62 12/01/24 11:18 Pulse Ox 96 12/01/24 11:18 FiO2 40 12/01/24 04:04 Intake & Output 11/30/24 12/01/24 12/01/24 18:59 06:59 18:59 Intake Total 1036 1020 128 Output Total 2024 640 750 Balance -989 380 -622 Weight 104.5 kg Intake: IV 20 20 10 Invasive Line 3 20 20 10 Oral 1016 1000 118 Output: Urine 2024 640 750 Other: Voiding Method Urinal Urinal Urinal # Voids 2 1 # Bowel Movements 1 - Exam GENERAL DESCRIPTION: An elderly male up in the chair in no distress RESPIRATORY SYSTEM: Unlabored breathing , decreased breath sounds at bases HEART: S1 S2 regular rate and rhythm , ABDOMEN: Soft , no tenderness EXTREMITIES: Swelling to bilateral lower extremity left heel wound is currently dressed - Labs CBC & Chem 7: 11/29/24 06:48 11/28/24 11:15 Labs: Microbiology - Last 24 Hours (Table) 11/29/24 16:23 Gram Stain - Preliminary Other - Other Wound Culture - Preliminary Pseudomonas aeruginosa Enterococcus faecalis 11/26/24 20:00 Gram Stain - Final Foot - Left Wound Culture - Final Staphylococcus aureus Pseudomonas aeruginosa Enterococcus faecalis Corynebacterium striatum group Assessment and Plan (1) Pressure ulcer, heel, left, unstageable Current Visit: Yes Status: Acute Code(s): L89.620 - PRESSURE ULCER OF LEFT HEEL, UNSTAGEABLE SNOMED Code(s): 43611830696516190 (2) Infected wound Current Visit: Yes Status: Acute Code(s): T14.8XXA - OTHER INJURY OF UNSPECIFIED BODY REGION, INITIAL ENCOUNTER; L08.9 - LOCAL INFECTION OF THE SKIN AND SUBCUTANEOUS TISSUE, UNSP SNOMED Code(s): 74805990 Plan: 1patient with a left heel unstageable pressure ulcer and the patient did have a some necrotic area and fluctuation mild foul-smelling with multiple pathogen growing including Pseudomonas Enterococcus faecalis and Prevotella. 2patient benefit from surgical debridement and deep culture to determine significance of the superficial culture and need for more aggressive antibiotic this has been discussed in detail with Dr. Lake who did a bedside debridement of the left heel wound noticed a pocket of pus which has been sent for culture those are pending 3patient deep culture currently growing Pseudomonas and Enterococcus faecalis with sensitivities pending patient to be treated with Zosyn would likely need IV antibiotic on discharge discussed with the patient seem to be agreeable with the plan Dictation was produced using [employer] dictation software. please excuse any grammatical, word or spelling errors. Time with Patient: Less than 30
[2024-12-02] MEDS: ZINC OXIDE PASTE (Z-GUARD) 1 APPLIC TOPICAL PRN (09:24)
--- NOTE | 2024-12-02 17:01 | P.PN ---
Progress Note - Text Progress Note Date: 12/02/24 69-year-old male with past medical history of CHF, CAD with previous PCI, CVA, HTN, HLD, lymphedema, morbid obesity, chronic hypoxic respiratory failure on home oxygen, COPD, NARCISO, tobacco use disorder, who presented to the ER on 4 shortness of breath. Patient was unable to provide significant history on admission, was placed on BiPAP. Admitted for acute on chronic hypoxic respiratory failure secondary to COPD exacerbation, started on IV steroids, breathing treatment, pulmonology consulted. Patient was also started on IV ceftriaxone and vancomycin for possible cellulitis. He was found to have left heel wound, wound care consulted. 11/27: Seen examined at bedside, no acute events overnight, he was tolerating nasal cannula, discussed with RN, he had an episode of desaturation to low 80s in the evening, improved with increased nasal cannula to 4 L. Patient was irritable, he declined Accu-Cheks previously and has been declining morning blood work. He is afebrile, blood pressure elevated 147/82, SpO2 94% on 4 L. WBC up to 10.62, hemoglobin stable 12.1, sodium and potassium WNL, creatinine normal, bicarb 41.. Podiatry following, no plans for debridement. Per pulmonology, patient cleared for discharge. He will be continued on broad- spectrum antibiotics, wound cultures pending, blood cultures preliminary negative. I did have conversation today with patient as he was stating that he is going to leave AMA, we discussed his current medical conditions, need to wait for final wound cultures, and ongoing respiratory issues, he agreed to stay, he agreed to have blood work done. 1 to 60 mg daily as patient is obese. Chest x- ray ordered and showed no acute process and no significant changes from before. Will switch to Zosyn 3.375 every 8 hours as wound cultures growing Enterococcus, ID consulted This is a 67-year-old patient of Dr. Min. Chronic stable medical conditions include coronary artery disease with stent, hypertension, hyperlipidemia, obstructive sleep apnea, colonic diverticulosis, arthritis, chronic lumbar pain at L2 to L5, recurrent fractures, AICD. Chronic hypoxic respiratory failure on 2 L oxygen at home, morbid obesity, obesity hypoventilation syndrome chronic congestive heart failure from diastolic dysfunction EF 50-55%. Colostomy bag. COPD Patient now presents with increasing burning sensation in both lower extremities. He thinks it to become more red): Proximal in the right. He has chronic lower extremity swelling and redness. And venous stasis. He also has developed some chest pain. No shortness of breath. No fever no chills. 03/26/2023 Patient still with bilateral leg cellulitis, improving slowly and gradually Her medicines on cefazolin Multiple Coil Winder recommended to continue with the current cardiac medication and they signed off the case November 29: Patient seen this afternoon. Awaiting debridement of his wound of the left heel. Oral intake fair. Later today he underwent debridement of the left heel pressure ulcer.There was some necrosis and hyperkeratotic tissue that was all removed. November 30: Resting in a recliner. Discussed with ID. Pending deep cultures. Which will determine antibiotics. Patient informed. Oral intake fair. Breathing stable. IV Zosyn. December 01: Comfortable sitting up. Eating well. Pain controlled. Awaiting cultures. Continue IV Zosyn. December 02: Up in recliner. Comfortable. Patient has a parastomal hernia. He did not want any intervention here. Making stool. Cultures not finalized. Active Medications Albuterol/Ipratropium (Ipratropium-Albuterol 3 Ml Neb) 3 ml INHALATION RT-QID [facility] Last Admin: 12/02/24 15:26 Dose: 3 ml Amiodarone HCl (Amiodarone 200 Mg Tab) 200 mg PO BID [facility] Last Admin: 12/02/24 09:30 Dose: 200 mg Apixaban (Apixaban 5 Mg Tab) 5 mg PO BID [facility]; Protocol Last Admin: 12/02/24 09:15 Dose: 5 mg Aspirin (Aspirin 81 Mg) 81 mg PO DAILY [facility] Last Admin: 12/02/24 09:15 Dose: 81 mg Atorvastatin Calcium (Atorvastatin 40 Mg Tab) 40 mg PO HS [facility] Last Admin: 12/01/24 20:58 Dose: 40 mg Budesonide/Formoterol Fumarate (Symbicort 80-4.5 Mcg Inhaler) 1 puff INHALATION RT-BID [facility] Last Admin: 12/02/24 09:08 Dose: 1 puff Clopidogrel Bisulfate (Clopidogrel 75 Mg Tab) 75 mg PO DAILY [facility] Last Admin: 12/02/24 09:15 Dose: 75 mg Dextrose/Water (Dextrose 50% Syringe 50 Ml) 25 ml IVP PER PROTOCOL PRN; Protocol PRN Reason: Hypoglycemia Dextrose/Water (Dextrose 50% Syringe 50 Ml) 50 ml IVP PER PROTOCOL PRN; Protocol PRN Reason: Hypoglycemia Diltiazem HCl (Diltiazem Oral 60 Mg Tab) 60 mg PO Q8HR [facility] Last Admin: 12/02/24 15:45 Dose: 60 mg Famotidine (Famotidine 20 Mg Tab) 20 mg PO BID [facility] Last Admin: 12/02/24 09:15 Dose: 20 mg Furosemide (Furosemide 40 Mg Tab) 40 mg PO TID [facility] Last Admin: 12/02/24 15:45 Dose: 40 mg Piperacillin Sod/Tazobactam (Sod 3.375 gm/ Sodium Chloride) 100 mls @ 25 mls/hr IVPB Q8HR [facility] Last Admin: 12/02/24 15:46 Dose: 25 mls/hr Insulin Human Lispro (Insulin Lispro (Humalog) 100 Unit/Ml 10 Ml Vl) 0 unit SQ ACHS [facility]; Protocol Last Admin: 12/02/24 16:07 Dose: Not Given Isosorbide Mononitrate (Isosorbide Mononitrate Er 30 Mg Tab.Er.24h) 30 mg PO PC-LUNCH [facility] Last Admin: 12/02/24 14:08 Dose: 30 mg Losartan Potassium (Losartan 25 Mg Tab) 25 mg PO HS [facility] Last Admin: 12/01/24 20:58 Dose: 25 mg Metoprolol Tartrate (Metoprolol Tartrate 25 Mg Tab) 25 mg PO TID [facility] Last Admin: 12/02/24 15:45 Dose: 25 mg Naloxone HCl (Naloxone 0.4 Mg/Ml 1 Ml Vial) 0.2 mg IV Q2M PRN PRN Reason: Opioid Reversal Nicotine (Nicotine 14mg/24hr Patch) 1 patch TRANSDERM DAILY [facility] Last Admin: 12/02/24 09:30 Dose: Not Given Ondansetron HCl (Ondansetron 4 Mg/2 Ml Vial) 4 mg IVP Q8HR PRN PRN Reason: Nausea And Vomiting Oxycodone/Acetaminophen (Oxycodone-Apap 10-325mg 1 Each Tab) 1 each PO Q6HR PRN PRN Reason: Pain Last Admin: 12/02/24 12:59 Dose: 1 each Pantoprazole Sodium (Pantoprazole 40 Mg Tablet) 40 mg PO AC-BRKFST [facility] Last Admin: 12/02/24 06:33 Dose: 40 mg Petrolatum (Zinc Oxide Paste (Z-Guard) 1 Applic) 1 applic TOPICAL BID PRN; Protocol PRN Reason: Wound Healing Last Admin: 12/02/24 09:24 Dose: 1 applic Prednisone (Prednisone 20 Mg Tab) 60 mg PO DAILY [facility] Last Admin: 12/02/24 09:15 Dose: 60 mg Senna/Docusate Sodium (Sennosides-Docusate Sodium 1 Each Tab) 1 each PO BID [facility] Last Admin: 12/02/24 09:15 Dose: 1 each Tamsulosin HCl (Tamsulosin 0.4 Mg Cap.Er.24h) 0.4 mg PO DAILY [facility] Last Admin: 12/02/24 09:15 Dose: 0.4 mg Past medical history: COPD in an ex-smoker, CHF from diastolic 50-55%, obesity hypoventilation syndrome, coronary artery disease with stent, hyperlipidemia, hypertension, AICD, chronic low back pain L2 to L5 as chronic fractures, morbid obesity, home oxygen 2 L, and right rotator cuff. Social history: Lives alone . Smokes about half a pack a day, since 1969.. No alcohol. Physical examination: VITAL SIGNS: 88, 16, 138 x 61, 97% 3 L GENERAL: Up in recliner, comfortable EYES: Pupils equal. Conjunctiva normal. HEENT: External appearance of nose and ears normal, oral cavity grossly normal. NECK: JVD unable to assess; masses not palpable. HEART: Heart sounds muffled, edema. LUNGS: Respiratory rate increased, decreased breath sound. EXTREMITY: Area. of Redness above the ankle to below the knee. Edema. Chronic venous stasis changes with pigmentation. Left heel wound. ABDOMEN: Soft, nontender, colostomy, with parastomal hernia, liver spleen not palpable. PSYCH: Alert and oriented x3; mood and affect anxious INVESTIGATIONS, reviewed in the clinical context: November 29: White count 7.7 hemoglobin 11.2 platelets 207 Potassium 4.4 BUN 39 creatinine 0.94 Left foot x-ray: No evidence of fracture. No evidence of osteomyelitis. Diffuse subcutaneous edema of the foot Assessment and plan: - Acute on chronic exacerbation of hypoxic respiratory failure secondary underlying COPD: Improving Initially required BiPAP. Now down to 4 L -Acute left heel decubitus ulcer Today underwent deep wound debridement by Dr. Rueda. Deep wound culture-pe nding. Postprocedure dressing in place On IV Zosyn per ID -Acute COPD exacerbation with current smoker. Better DuoNeb. Symbicort. Switch to oral prednisone -Chronic bilateral lower, venous insufficiency and possibly lymphedema, with deep pigmentation - Persistent atrial fibrillation. Rate controlled. Eliquis. Cardizem. Lopressor. -Chronic nicotine dependence, cigarette smoker Nicotine patch - peripheral neuropathy -Colostomy bag, with parastomal hernia Patient to follow-up with his surgeon outpatient -Chronic congestive heart failure from diastolic dysfunction EF 50-55%: Stable Lasix. -Obesity hypoventilation syndrome -Coronary artery disease with stent Aspirin Lopressor -Hyperlipidemia Lipitor -Essential hypertension Cardizem. Lopressor. -AICD - BPH Flomax - GERD Protonix -Chronic low back pain from L2 to L5 osteoarthritis with chronic fractures -Morbid obesity BMI 59.9 Weight loss measures -Chronic hypoxic respiratory failure , secondary to underlying COPD on 2 L oxygen at home -Chronic medical debility uses a motorized wheelchair -Full code Await cultures. To be finalized. Antibiotics accordingly.
--- NOTE | 2024-12-02 17:03 | P.PN ---
Subjective Progress Note Date: 12/02/24 Principal diagnosis: Reason for follow-up is left heel infected wound Patient is a 69-year-old male with a past medical history significant for Coronary Artery Disease (CAD), Chest Pain / Angina, COPD, CVA/TIA, Hyperlipidemia, Hypertension, Myocardial Infarction (NH), Osteoarthritis (OA), Respiratory Disorder, Sleep Apnea/CPAP/BIPAP presented to the hospital days ago for evaluation of increasing shortness of breath also noticed to have a left heel infected wound with a positive culture prompting this consultation. On today's evaluation that is 12/02/2024, Patient is afebrile patient is currently on 3 L nasal cannula oxygen and denies having any shortness of breath, the patient denies any chest pain or cough, the patient denies any nausea vomiting did not have any abdominal pain and no diarrhea denies pain to the left heel area. No new lab has been obtained today left heel culture finalized with Pseudomonas sensitivities pending Enterococcus sensitive to ampicillin Objective - Vital Signs Vital signs: Vital Signs Temp 98.7 F 12/02/24 09:20 Pulse 88 12/02/24 15:48 Resp 16 12/02/24 11:22 BP 138/61 12/02/24 15:48 Pulse Ox 97 12/02/24 15:48 FiO2 40 12/01/24 04:04 Intake & Output 12/01/24 12/02/24 12/02/24 18:59 06:59 18:59 Intake Total 256 236 Output Total 1025 1025 900 Balance -769 -1025 -664 Weight 110 kg Intake: IV 20 Invasive Line 3 20 Oral 236 236 Output: Urine 1025 1025 900 Other: Voiding Method Urinal Urinal Urinal # Voids 1 # Bowel Movements 1 - Exam GENERAL DESCRIPTION: An elderly male up in the chair in no distress RESPIRATORY SYSTEM: Unlabored breathing , decreased breath sounds at bases HEART: S1 S2 regular rate and rhythm , ABDOMEN: Soft , no tenderness EXTREMITIES: Swelling to bilateral lower extremity left heel wound is currently dressed - Labs CBC & Chem 7: 11/29/24 06:48 11/28/24 11:15 Labs: Microbiology - Last 24 Hours (Table) 11/29/24 16:23 Anaerobic Culture - Preliminary Heel - Left Prevotella bivia 11/29/24 16:23 Gram Stain - Preliminary Other - Other Wound Culture - Preliminary Pseudomonas aeruginosa Enterococcus faecalis Assessment and Plan (1) Pressure ulcer, heel, left, unstageable Current Visit: Yes Status: Acute Code(s): L89.620 - PRESSURE ULCER OF LEFT HEEL, UNSTAGEABLE SNOMED Code(s): 22222720212338106 (2) Infected wound Current Visit: Yes Status: Acute Code(s): T14.8XXA - OTHER INJURY OF UNSPECIFIED BODY REGION, INITIAL ENCOUNTER; L08.9 - LOCAL INFECTION OF THE SKIN AND SUBCUTANEOUS TISSUE, UNSP SNOMED Code(s): 13188958 Plan: 1patient with a left heel unstageable pressure ulcer and the patient did have a some necrotic area and fluctuation mild foul-smelling with multiple pathogen growing including Pseudomonas Enterococcus faecalis and Prevotella. 2patient benefit from surgical debridement and deep culture to determine significance of the superficial culture and need for more aggressive antibiotic this has been discussed in detail with Dr. Lake who did a bedside debridement of the left heel wound noticed a pocket of pus which has been sent for culture those are pending 3patient deep culture currently growing Pseudomonas and Enterococcus faecalis, Enterococcus is ampicillin sensitive Pseudomonas sensitivities are pending 4for now we will treat the patient with Zosyn will order midline and a short course of IV Zosyn on discharge if the Pseudomonas is also sensitive to Zosyn Dictation was produced using [employer] dictation software. please excuse any grammatical, word or spelling errors. Time with Patient: Less than 30
[2024-12-03 09:10] VITALS: RESP 18
[2024-12-03 11:30] VITALS: TEMP 97.5
[2024-12-03 13:38] VITALS: BMI 49.8
[2024-12-03 14:52] VITALS: BP 100/60
[2024-12-03 16:01] VITALS: PULSE 80
--- NOTE | 2024-12-03 20:15 | P.DS ---
Providers Date of admission: 11/24/24 21:27 Expected date of discharge: 12/03/24 Attending physician: Stevo Winn Consults: 11/24/24 21:27 Consult Physician Routine Consulting Provider: Juan Robbins Consult Reason/Comments: respFail Do you want consulting provider notified?: Yes 11/27/24 15:24 Consult Physician Routine Consulting Provider: Becky Rueda Consult Reason/Comments: left foot wound, possible debridement Do you want consulting provider notified?: Yes 11/28/24 15:16 Consult Physician Routine Consulting Provider: Casie Smith Consult Reason/Comments: heel wound growing enterococcus Do you want consulting provider notified?: Yes Primary care physician: [facility] Course: 69-year-old male with past medical history of CHF, CAD with previous PCI, CVA, HTN, HLD, lymphedema, morbid obesity, chronic hypoxic respiratory failure on home oxygen, COPD, NARCISO, tobacco use disorder, who presented to the ER on 4 shortness of breath. Patient was unable to provide significant history on admission, was placed on BiPAP. Admitted for acute on chronic hypoxic respiratory failure secondary to COPD exacerbation, started on IV steroids, breathing treatment, pulmonology consulted. Patient was also started on IV ceftriaxone and vancomycin for possible cellulitis. He was found to have left heel wound, wound care consulted. 11/27: Seen examined at bedside, no acute events overnight, he was tolerating nasal cannula, discussed with RN, he had an episode of desaturation to low 80s in the evening, improved with increased nasal cannula to 4 L. Patient was irritable, he declined Accu-Cheks previously and has been declining morning blood work. He is afebrile, blood pressure elevated 147/82, SpO2 94% on 4 L. WBC up to 10.62, hemoglobin stable 12.1, sodium and potassium WNL, creatinine normal, bicarb 41.. Podiatry following, no plans for debridement. Per pulmonology, patient cleared for discharge. He will be continued on broad- spectrum antibiotics, wound cultures pending, blood cultures preliminary negative. I did have conversation today with patient as he was stating that he is going to leave AMA, we discussed his current medical conditions, need to wait for final wound cultures, and ongoing respiratory issues, he agreed to stay, he agreed to have blood work done. 1 to 60 mg daily as patient is obese. Chest x- ray ordered and showed no acute process and no significant changes from before. Will switch to Zosyn 3.375 every 8 hours as wound cultures growing Enterococcus, ID consulted This is a 67-year-old patient of Dr. Min. Chronic stable medical conditions include coronary artery disease with stent, hypertension, hyperlipidemia, obstructive sleep apnea, colonic diverticulosis, arthritis, chronic lumbar pain at L2 to L5, recurrent fractures, AICD. Chronic hypoxic respiratory failure on 2 L oxygen at home, morbid obesity, obesity hypoventilation syndrome chronic congestive heart failure from diastolic dysfunction EF 50-55%. Colostomy bag. COPD Patient now presents with increasing burning sensation in both lower extremities. He thinks it to become more red): Proximal in the right. He has chronic lower extremity swelling and redness. And venous stasis. He also has developed some chest pain. No shortness of breath. No fever no chills. 03/26/2023 Patient still with bilateral leg cellulitis, improving slowly and gradually Her medicines on cefazolin Food Demonstrator recommended to continue with the current cardiac medication and they signed off the case November 3: Patient seen this afternoon. Awaiting debridement of his wound of the left heel. Oral intake fair. Later today he underwent debridement of the left heel pressure ulcer.There was some necrosis and hyperkeratotic tissue that was all removed. November 30: Resting in a recliner. Discussed with ID. Pending deep cultures. Which will determine antibiotics. Patient informed. Oral intake fair. Breathing stable. IV Zosyn. December 01: Comfortable sitting up. Eating well. Pain controlled. Awaiting cultures. Continue IV Zosyn. December 02: Up in recliner. Comfortable. Patient has a parastomal hernia. He did not want any intervention here. Making stool. Cultures not finalized. December 03: Comfortable. Colostomy working well. Per ID patient to get IV Zosyn for 2 more weeks. airport operations manager arrange for home antibiotics. Prednisone taper. Discussed with patient. Home infusion arranged. Follow-up with Dr. Rueda for wound care. Past medical history: COPD in an ex-smoker, CHF from diastolic 50-55%, obesity hypoventilation syndrome, coronary artery disease with stent, hyperlipidemia, hypertension, AICD, chronic low back pain L2 to L5 as chronic fractures, morbid obesity, home oxygen 2 L, and right rotator cuff. Social history: Lives alone . Smokes about half a pack a day, since 1969.. No alcohol. Physical examination: VITAL SIGNS: 80, 18, 100 x 60, 95% 3 L GENERAL: Up in recliner, comfortable EYES: Pupils equal. Conjunctiva normal. HEENT: External appearance of nose and ears normal, oral cavity grossly normal. NECK: JVD unable to assess; masses not palpable. HEART: Heart sounds muffled, edema. LUNGS: Respiratory rate increased, decreased breath sound. EXTREMITY: Area. of Redness above the ankle to below the knee. Edema. Chronic venous stasis changes with pigmentation. Left heel wound. ABDOMEN: Soft, nontender, colostomy, with parastomal hernia, liver spleen not palpable. PSYCH: Alert and oriented x3; mood and affect anxious INVESTIGATIONS, reviewed in the clinical context: November 29: White count 7.7 hemoglobin 11.2 platelets 207 Potassium 4.4 BUN 39 creatinine 0.94 Left foot x-ray: No evidence of fracture. No evidence of osteomyelitis. Diffuse subcutaneous edema of the foot Assessment and plan: - Acute on chronic exacerbation of hypoxic respiratory failure secondary underlying COPD: Greatly improved Initially required BiPAP. Now down to 3 L -Acute left heel decubitus ulcer Today underwent deep wound debridement by Dr. Rueda. Deep wound culture- pending. Postprocedure dressing in place On IV Zosyn per ID. Being discharged on 2 more weeks of IV Zosyn. Follow-up with Dr. Rueda outpatient and wound care -Acute COPD exacerbation with current smoker. Better DuoNeb. Symbicort. Switch to oral prednisone Discharged on prednisone taper -Chronic bilateral lower, venous insufficiency and possibly lymphedema, with deep pigmentation - Persistent atrial fibrillation. Rate controlled. Eliquis. Cardizem. Lopressor. -Chronic nicotine dependence, cigarette smoker Nicotine patch - peripheral neuropathy -Colostomy bag, with parastomal hernia Patient to follow-up with his surgeon outpatient -Chronic congestive heart failure from diastolic dysfunction EF 50-55%: Stable Lasix. -Obesity hypoventilation syndrome -Coronary artery disease with stent Aspirin Lopressor -Hyperlipidemia Lipitor -Essential hypertension Cardizem. Lopressor. -AICD - BPH Flomax - GERD Protonix -Chronic low back pain from L2 to L5 osteoarthritis with chronic fractures -Morbid obesity BMI 59.9 Weight loss measures -Chronic hypoxic respiratory failure , secondary to underlying COPD on 2 L oxygen at home -Chronic medical debility uses a motorized wheelchair -Full code Disposition: Home Plan - Discharge Summary Discharge Rx Participant: No New Discharge Prescriptions: New Piperacillin-Tazobactam [Zosyn] 4.5 gm IVPB Q8HR #42 each predniSONE 10 mg PO DAILY #30 tab Nicotine 14Mg/24Hr Patch [Habitrol] 1 patch TRANSDERM DAILY #30 patch Continue Clopidogrel [Plavix] 75 mg PO DAILY Sennosides/Docusate Sodium [Senna Plus 8.6-50 mg Tablet] 1 tab PO BID Ipratropium-Albuterol Nebulize [Duoneb 0.5 mg-3 mg/3 ml Soln] 3 ml INHALATION RT-QID Ciclopirox Olamine Cream [Ciclodan] 1 applic TOPICAL BID Metoprolol Tartrate [Lopressor] 25 mg PO TID Aspirin EC [Ecotrin Low Dose] 81 mg PO DAILY oxyCODONE HCL/ACETAMINOPHEN [Percocet 10-325 mg] 1 tab PO Q6HR PRN PRN Reason: Pain Budesonide/Formoterol Fumarate [Symbicort 80-4.5 Mcg Inhaler] 2 puff INHALATION RT-BID Diclofenac Sodium Gel [Voltaren 1% Gel] 2 gm TOPICAL QID PRN gm PRN Reason: pain SILVER sulfADIAZINE CREAM [Silvadene Cream] 1 applic TOPICAL DAILY PRN PRN Reason: LEGS Tamsulosin [Flomax] 0.4 mg PO DAILY Pantoprazole Sodium [Protonix] 40 mg PO AC-BRKFST Apixaban [Eliquis] 5 mg PO BID Losartan [Cozaar] 25 mg PO HS Isosorbide Mononitrate ER [Imdur] 30 mg PO PC-LUNCH dilTIAZem HCL 60 mg PO Q8H Atorvastatin [Lipitor] 40 mg PO HS Changed Amiodarone [Cordarone] 200 mg PO DAILY #0 Furosemide [Lasix] 40 mg PO BID #0 Discontinued Doxycycline Hyclate 100 mg PO BID Discharge Medication List Clopidogrel [Plavix] 75 mg PO DAILY 03/20/19 [History] Sennosides/Docusate Sodium [Senna Plus 8.6-50 mg Tablet] 1 tab PO BID 02/07/23 [History] oxyCODONE HCL/ACETAMINOPHEN [Percocet 10-325 mg] 1 tab PO Q6HR PRN 02/07/23 [History] Budesonide/Formoterol Fumarate [Symbicort 80-4.5 Mcg Inhaler] 2 puff INHALATION RT-BID 03/03/23 [History] Ipratropium-Albuterol Nebulize [Duoneb 0.5 mg-3 mg/3 ml Soln] 3 ml INHALATION RT-QID 03/03/23 [History] Diclofenac Sodium Gel [Voltaren 1% Gel] 2 gm TOPICAL QID PRN gm 03/07/23 [Rx] SILVER sulfADIAZINE CREAM [Silvadene Cream] 1 applic TOPICAL DAILY PRN 03/23/23 [History] Apixaban [Eliquis] 5 mg PO BID 11/25/24 [History] Aspirin EC [Ecotrin Low Dose] 81 mg PO DAILY 11/25/24 [History] Atorvastatin [Lipitor] 40 mg PO HS 11/25/24 [History] Ciclopirox Olamine Cream [Ciclodan] 1 applic TOPICAL BID 11/25/24 [History] Isosorbide Mononitrate ER [Imdur] 30 mg PO PC-LUNCH 11/25/24 [History] Losartan [Cozaar] 25 mg PO HS 11/25/24 [History] Metoprolol Tartrate [Lopressor] 25 mg PO TID 11/25/24 [History] Pantoprazole Sodium [Protonix] 40 mg PO AC-BRKFST 11/25/24 [History] Tamsulosin [Flomax] 0.4 mg PO DAILY 11/25/24 [History] dilTIAZem HCL 60 mg PO Q8H 11/25/24 [History] Amiodarone [Cordarone] 200 mg PO DAILY #0 12/03/24 [Rx] Furosemide [Lasix] 40 mg PO BID #0 12/03/24 [Rx] Nicotine 14Mg/24Hr Patch [Habitrol] 1 patch TRANSDERM DAILY #30 patch 12/03/24 [Rx] Piperacillin-Tazobactam [Zosyn] 4.5 gm IVPB Q8HR #42 each 12/03/24 [Rx] predniSONE 10 mg PO DAILY #30 tab 12/03/24 [Rx] Follow up Appointment(s)/Referral(s): Home Health,[facility] [NON-STAFF] - 12/04/24 9:00 am ([facility] will be at your house to begin IV antibiotic teaching at 9 a.m. on 12/04/24.) [facility], [REFERRING] - As Needed ([facility] will deliver supplies to your house on the evening of discharge. ) Boston Min MD [Primary Care Provider] - 1-2 days (post hospital follow up) Casie Smith MD [STAFF PHYSICIAN] - 1 Week (post hospital follow up) Patient Instructions/Handouts: Cellulitis (GEN), COPD (Chronic Obstructive Pulmonary Disease) (DC) Activity/Diet/Wound Care/Special Instructions: . Discharge/Stand Alone Forms: Who Do I Call? Discharge Disposition: HOME WITH HOME HEALTH SERVICES
--- NOTE | 2024-12-07 14:52 | P.PN ---
Subjective Progress Note Date: 12/03/24 Principal diagnosis: Reason for follow-up is left heel infected wound Patient is a 69-year-old male with a past medical history significant for Coronary Artery Disease (CAD), Chest Pain / Angina, COPD, CVA/TIA, Hyperlipidemia, Hypertension, Myocardial Infarction ([place]), Osteoarthritis ([place]), Respiratory Disorder, Sleep Apnea/CPAP/BIPAP presented to the hospital days ago for evaluation of increasing shortness of breath also noticed to have a left heel infected wound with a positive culture prompting this consultation. On today's evaluation that is 12/03/2024, patient has been afebrile, patient is breathing comfortably and is currently on room air, patient denies having any chest pain and cough, patient denies nausea vomiting or diarrhea and no abdominal pain denies pain to the left heel area. No new lab has been obtained today deep culture with Pseudomonas and Enterococcus along with Prevotella and Finegoldia Objective - Vital Signs Vital signs: Vital Signs Temp 97.5 F L 12/03/24 08:00 Pulse 61 12/03/24 12:00 Resp 18 12/03/24 09:19 BP 86/59 12/03/24 12:00 Pulse Ox 95 12/03/24 09:08 FiO2 40 12/03/24 09:08 Intake & Output 12/02/24 12/03/24 12/03/24 18:59 06:59 18:59 Intake Total 476 118 Output Total 900 1000 600 Balance -424 -1000 -482 Weight 166.5 kg Intake: Oral 476 118 Output: Urine 900 1000 600 Other: Voiding Method Urinal Urinal Urinal # Voids 1 # Bowel Movements 1 - Exam GENERAL DESCRIPTION: An elderly male up in the chair in no distress RESPIRATORY SYSTEM: Unlabored breathing , decreased breath sounds at bases HEART: S1 S2 regular rate and rhythm , ABDOMEN: Soft , no tenderness EXTREMITIES: Left heel wound with some slough tissue bone was not palpable - Labs CBC & Chem 7: 11/29/24 06:48 11/28/24 11:15 Labs: Microbiology - Last 24 Hours (Table) 11/29/24 16:23 Anaerobic Culture - Final Heel - Left Finegoldia magna Prevotella bivia 11/29/24 16:23 Gram Stain - Final Other - Other Wound Culture - Final Pseudomonas aeruginosa Enterococcus faecalis Assessment and Plan (1) Pressure ulcer, heel, left, unstageable Status: Acute Code(s): L89.620 - PRESSURE ULCER OF LEFT HEEL, UNSTAGEABLE SNOMED Code(s): 49980857813786001 (2) Infected wound Status: Acute Code(s): T14.8XXA - OTHER INJURY OF UNSPECIFIED BODY REGION, INITIAL ENCOUNTER; L08.9 - LOCAL INFECTION OF THE SKIN AND SUBCUTANEOUS TISSUE, UNSP SNOMED Code(s): 69575850 Plan: 1patient with a left heel unstageable pressure ulcer and the patient did have a some necrotic area and fluctuation mild foul-smelling with multiple pathogen growing including Pseudomonas Enterococcus faecalis and Prevotella. 2patient benefit from surgical debridement and deep culture to determine significance of the superficial culture and need for more aggressive antibiotic this has been discussed in detail with Dr. Lake who did a bedside debridement of the left heel wound noticed a pocket of pus which has been sent for culture those are growing Pseudomonas Enterococcus Prevotella and Finegoldia 3patient deep culture currently growing Pseudomonas and Enterococcus faecalis, Enterococcus is ampicillin sensitive Pseudomonas sensitive to Zosyn 4patient did have midline placement and a short course of IV Zosyn on discharge and close outpatient follow-up Dictation was produced using [employer] dictation software. please excuse any grammatical, word or spelling errors.
== END 2024-12-03 16:44 | disposition home health service (06) | DRG 981 ==
LOC: EC 20:22 → 3SCARD 21:27
PROVIDERS: ADMIT Hospitalist; ATTEND Hospitalist
PROC: 5A09357 Assistance with Respiratory Ventilation, Less than 24 Consecutive Hours, Continuous Positive Airway Pressure (ICD-10-PCS; principal; 2024-11-24)
PROC: 0KBW0ZZ Excision of Left Foot Muscle, Open Approach (ICD-10-PCS; 2024-11-29)
DX: J44.1 Chronic obstructive pulmonary disease with (acute) exacerbation (principal); J96.21 Acute and chronic respiratory failure with hypoxia; J96.22 Acute and chronic respiratory failure with hypercapnia; L89.622 Pressure ulcer of left heel, stage 2; E87.1 Hypo-osmolality and hyponatremia; B95.2 Enterococcus as the cause of diseases classified elsewhere; I48.19 Other persistent atrial fibrillation; G62.9 Polyneuropathy, unspecified; E66.2 Morbid (severe) obesity with alveolar hypoventilation; I11.0 Hypertensive heart disease with heart failure; D64.9 Anemia, unspecified; I73.9 Peripheral vascular disease, unspecified; I50.32 Chronic diastolic (congestive) heart failure; Z68.43 Body mass index [BMI] 50.0-59.9, adult; E87.3 Alkalosis; M84.48XA Pathological fracture, other site, initial encounter for fracture; L03.115 Cellulitis of right lower limb; L03.116 Cellulitis of left lower limb; Z93.3 Colostomy status; B96.5 Pseudomonas (aeruginosa) (mallei) (pseudomallei) as the cause of diseases classified elsewhere; F41.9 Anxiety disorder, unspecified; I25.10 Atherosclerotic heart disease of native coronary artery without angina pectoris; E78.5 Hyperlipidemia, unspecified; F17.210 Nicotine dependence, cigarettes, uncomplicated; Z99.81 Dependence on supplemental oxygen; M47.816 Spondylosis without myelopathy or radiculopathy, lumbar region; I25.5 Ischemic cardiomyopathy; I87.2 Venous insufficiency (chronic) (peripheral); I87.8 Other specified disorders of veins; I89.0 Lymphedema, not elsewhere classified; K21.9 Gastro-esophageal reflux disease without esophagitis; K43.5 Parastomal hernia without obstruction or gangrene; N40.0 Benign prostatic hyperplasia without lower urinary tract symptoms; I25.2 Old myocardial infarction; Z79.02 Long term (current) use of antithrombotics/antiplatelets; Z79.51 Long term (current) use of inhaled steroids; Z79.01 Long term (current) use of anticoagulants; Z79.82 Long term (current) use of aspirin; Z79.899 Other long term (current) drug therapy; Z86.73 Personal history of transient ischemic attack (TIA), and cerebral infarction without residual deficits; Z90.49 Acquired absence of other specified parts of digestive tract; Z95.5 Presence of coronary angioplasty implant and graft; Z95.810 Presence of automatic (implantable) cardiac defibrillator; Z82.49 Family history of ischemic heart disease and other diseases of the circulatory system
CPT/HCPCS: 36415; 71045; 80048; 80053; 80202; 83605; 83735; 83880; 84100; 84484; 85025; 85610; 85730; 87040; 87070; 87075; 87077; 87186; 87205; 87636; 93005; 94640; 94660; 94760; 96361; 96365; 96366; 96367; 96375; 96376; 99291

== ENCOUNTER 2024-12-06 12:45 | Inpatient (IN) | payer MEDICARE ==
--- NOTE | 2024-12-06 13:16 | ED ---
General Adult HPI - General Chief complaint: Upper Respiratory Infection Stated complaint: YUMIKO Time Seen by Provider: 12/06/24 12:47 Source: EMS Mode of arrival: EMS Limitations: physical limitation - History of Present Illness Initial comments: Dictation was produced using [employer] dictation software. please excuse any grammatical, word or spelling errors. Chief Complaint: 69-year-old male dyspnea History of Present Illness: Patient 69-year-old obese male presents to the emergency department with dyspnea. Patient called EMS for concerns with his P ICC line. Patient has PICC line for antibiotics to treat extremity infection. Prior to arrival patient called EMS for flushing of the PICC line. The PICC line was flushed couple hours later patient started to have shortness of breath prompting a another call to EMS. Patient found to be dyspneic was placed on CPAP by prehospital providers. Patient has any chest pain. States that he has chronic respiratory issues due to obesity, sleep apnea and COPD. Denies any pain complaints. The ROS documented in this emergency department record has been reviewed and confirmed by me. Those systems with pertinent positive or negative responses have been documented in the HPI. All other systems are other negative and/or noncontributory. - Related Data Home Medications Medication Instructions Recorded Confirmed Clopidogrel [Plavix] 75 mg PO DAILY 03/20/19 11/25/24 Sennosides/Docusate Sodium [Senna 1 tab PO BID 02/07/23 11/25/24 Plus 8.6-50 mg Tablet] oxyCODONE HCL/ACETAMINOPHEN 1 tab PO Q6HR PRN 02/07/23 11/25/24 [Percocet 10-325 mg] Budesonide/Formoterol Fumarate 2 puff INHALATION RT-BID 03/03/23 11/25/24 [Symbicort 80-4.5 Mcg Inhaler] Ipratropium-Albuterol Nebulize 3 ml INHALATION RT-QID 03/03/23 11/25/24 [Duoneb 0.5 mg-3 mg/3 ml Soln] SILVER sulfADIAZINE CREAM 1 applic TOPICAL DAILY PRN 03/23/23 11/25/24 [Silvadene Cream] Apixaban [Eliquis] 5 mg PO BID 11/25/24 11/25/24 Aspirin EC [Ecotrin Low Dose] 81 mg PO DAILY 11/25/24 11/25/24 Atorvastatin [Lipitor] 40 mg PO HS 11/25/24 11/25/24 Ciclopirox Olamine Cream [Ciclodan] 1 applic TOPICAL BID 11/25/24 11/25/24 Isosorbide Mononitrate ER [Imdur] 30 mg PO PC-LUNCH 11/25/24 11/25/24 Losartan [Cozaar] 25 mg PO HS 11/25/24 11/25/24 Metoprolol Tartrate [Lopressor] 25 mg PO TID 11/25/24 11/25/24 Pantoprazole Sodium [Protonix] 40 mg PO AC-BRKFST 11/25/24 11/25/24 Tamsulosin [Flomax] 0.4 mg PO DAILY 11/25/24 11/25/24 dilTIAZem HCL 60 mg PO Q8H 11/25/24 11/25/24 Previous Rx's Medication Instructions Recorded Diclofenac Sodium Gel [Voltaren 1% 2 gm TOPICAL QID PRN gm 03/07/23 Gel] Amiodarone [Cordarone] 200 mg PO DAILY #0 12/03/24 Furosemide [Lasix] 40 mg PO BID #0 12/03/24 Nicotine 14Mg/24Hr Patch [Habitrol] 1 patch TRANSDERM DAILY #30 patch 12/03/24 Piperacillin-Tazobactam [Zosyn] 4.5 gm IVPB Q8HR #42 each 12/03/24 predniSONE 10 mg PO DAILY #30 tab 12/03/24 Allergies Allergy/AdvReac Type Severity Reaction Status Date / Time No Known Allergies Allergy Verified 11/25/24 12:46 Review of Systems ROS Statement: Those systems with pertinent positive or pertinent negative responses have been documented in the HPI. ROS Other: All systems not noted in ROS Statement are negative. Past Medical History Past Medical History: Coronary Artery Disease (CAD), Chest Pain / Angina, COPD, CVA/TIA, Hyperlipidemia, Hypertension, Myocardial Infarction (ND), Osteoarthritis (OA), Respiratory Disorder, Sleep Apnea/CPAP/BIPAP Additional Past Medical History / Comment(s): obesity, obesity hypoventilation syndrome, suspected CHF and cor pulmonale, previous history of defibrillator placement, CVA in 2004, chronic back pain secondary to DDD and spinal canal stenosis, history of vertebral fracture L2 through L5, chronic lower extremity edema, diverticular disease, L knee fx in past and torn R rotator cuff, cellulit is, hospitalization for gallbladder complications Last Myocardial Infarction Date:: 2011 History of Any Multi-Drug Resistant Organisms: None Reported Past Surgical History: Bowel Resection, Cholecystectomy, Heart Catheterization With Stent, Hernia Repair, Pacemaker Additional Past Surgical History / Comment(s): PTCA with stent (4 total), 04/05/13 [employer] pacemaker, 1990' umbilical hernia repair, colonoscopy, circumcision, R eye surgery for strabismus, gallbladder stents One removed from HF on 03/19, Colostomy with open wounds. Past Anesthesia/Blood Transfusion Reactions: No Reported Reaction Date of Last Stent Placement:: 2012 Type of Cardiac Device: Permanent Pacemaker Device Placement Date:: 04/05/13 Past Psychological History: No Psychological Hx Reported Smoking Status: Current some day smoker Past Alcohol Use History: None Reported Past Drug Use History: None Reported - Past Family History Father Family Medical History: Musculoskeletal Disorder, Neurologic Disorder Additional Family Medical History / Comment(s): Father had parkinson's dx and at age 84 yrs. Mother Family Medical History: Myocardial Infarction (ND) Additional Family Medical History / Comment(s): Mother had 3 vessel CABG. She of a massive ND at the age of 53 yrs. General Exam - General Exam Comments Initial Comments: General: Well-appearing, nontoxic, no acute distress. Head: Normocephalic, atraumatic Eyes: PERRLA, EOMI ENT: Airway patent Chest: lungs clear to auscultation bilaterally no obvious wheezes Skin: No visual rash, normal skin tone, severe lymphedema to bilateral lower extremities Neuro: Alert and oriented 3 Musculoskeletal: No gross abnormalities Limitations: physical limitation Course Vital Signs 12/06/24 12/06/24 12/06/24 12:45 12:46 13:00 Temperature 98.0 F Pulse Rate 77 Respiratory 22 Rate Blood Pressure 113/56 O2 Sat by Pulse 96 Oximetry Fraction of 50 50 Inspired Oxygen (FIO2) EKG Findings - EKG Comments: EKG Findings:: My EKG interpretation: Ventricular rate 78, A-flutter, QRS 125, QTc 426. No HI prolongation, no QTC prolongation, no ST or T-wave changes noted. EKG compared to November 24, 2024 showing no changes. Overall, this EKG is unremarkable Medical Decision Making - Medical Decision Making Was pt. sent in by a medical professional or institution (, PA, GALVANOMETER ASSEMBLER, urgent care, hospital, or longterm...) When possible be specific @ -No Did you speak to anyone other than the patient for history (EMS, parent, family, police, friend...)? What history was obtained from this source @ -EMS as described above Did you review nursing and triage notes (agree or disagree)? Why? @ -I reviewed and agree with nursing and triage notes Were old charts reviewed (outside hosp., previous admission, EMS record, old EKG, old radiological studies, urgent care reports/EKG's, longterm records)? Report findings @ -No old charts were reviewed Differential Diagnosis (chest pain, altered mental status, abdominal pain women, abdominal pain men, vaginal bleeding, musculoskeletal, weakness, fever, dyspnea, syncope, headache, dizziness, GI bleed, back pain, seizure, CVA, palpatations, mental health)? @ -Differential Dyspnea: Coronary syndrome, arrhythmia, tamponade, asthma, COPD, pulmonary embolism, pneumonia, pneumothorax, pulmonary effusion, anaphylaxis, diabetic ketoacidosis, flailed chest, pulmonary contusion, diaphragmatic rupture, anemia, neuromuscular, this is not meant to be an all-inclusive list. EKG interpreted by me (3pts min.). @ -See above X-rays interpreted by me (1pt min.). @ -Chest x-ray is nonacute CT interpreted by me (1pt min.). @ -None done U/S interpreted by me (1pt. min.). @ -None done What testing was considered but not performed or refused? (CT, X-rays, U/S, labs)? Why? @ -None What meds were considered but not given or refused? Why? @ -None Was smoking cessation discussed for >3mins.? @ -No Were there social determinants of health that impacted care today? How? (Homelessness, low income, unemployed, alcoholism, drug addiction, transportation, low edu. Level, literacy, decrease access to med. care, prison, rehab)? @ -No Was there de-escalation of care discussed even if they declined (Discuss DNR or withdrawal of care, Hospice)? DNR status @ -No What co-morbidities impacted this encounter? (DM, HTN, Smoking, COPD, CAD, Cancer, CVA, ARF, Chemo, Hep., AIDS, mental health diagnosis, sleep apnea, morbid obesity)? @ -COPD, CHF, obesity Was patient admitted / discharged? Hospital course, mention meds given and route, prescriptions, significant lab abnormalities, going to OR and other pertinent info. @ -69-year-old obese male currently being treated for extremity infection via PICC line presents emergency department with dyspnea has significant comorbidities. Vital signs upon arrival are within acceptable limits. Patient reevaluated second time found to be a little lethargic. Patient showing signs of CO2 narcosis. pH is 7.3 with the pCO2 greater than 98 bicarb of 50. Imaging studies negative. Troponin negative. BNP is negative. Clinical presentation consistent with hypercarbic respiratory failure likely secondary to obesity hypoventilation syndrome. Placed on NIV will be admitted consultation pulmonology. Case discussed with hospitalist for admission Did you discuss the management of the patient with other professionals (professionals i.e. , PA, GALVANOMETER ASSEMBLER, lab, RT, psych nurse, social economist, chief technical officer, teacher, hydrographical technical officer, disease case manager)? Give summary @ -No Was critical care preformed (if so, how long)? @ -No Undiagnosed new problem with uncertain prognosis? @ -No Drug Therapy requiring intensive monitoring for toxicity (Heparin, Nitro, Insulin, Cardizem)? @ -No Were any procedures done? @ -No Diagnosis/symptom? Acute, or Chronic, or Acute on Chronic? Uncomplicated (without systemic symptoms) or Complicated (systemic symptoms)? @ -Hypercarbic respiratory failure complicated by CO2 narcosis Side effects of treatment? @ -No Exacerbation, Progression, or Severe Exacerbation? @ -No Poses a threat to life or bodily function? How? (Chest pain, USA, ND, pneumonia, PE, COPD, DKA, ARF, appy, cholecystitis, CVA, Diverticulitis, Homicidal, Suicidal, threat to staff... and all critical care pts) @ -yes - Lab Data Result diagrams: 12/06/24 13:18 12/06/24 13:18 Lab Results 12/06/24 12/06/24 12/06/24 Range/Units 13:18 13:18 13:18 WBC 10.00 (4.50-10.00) 10*3/uL RBC 3.42 L (4.40-5.60) 10*6/uL Hgb 10.3 L (13.0-17.0) g/dL Hct 34.1 L (39.6-50.0) % MCV 99.7 H (80.0-97.0) fL MCH 30.1 (27.0-32.0) pg MCHC 30.2 L (32.0-37.0) g/dL Plt Count 159 (140-440) 10*3/uL MPV 9.8 (9.5-12.2) fL Immature Gran % (Auto) 0.9 % Neutrophils % 75.2 % Lymphocytes % 13.6 % Monocytes % 9.6 % Eosinophils % 0.6 % Basophils % 0.1 % Immature Gran # 0.09 H (0.00-0.04) 10*3/uL Neutrophils # 7.52 (1.80-7.70) 10*3/uL Lymphocytes # 1.36 (0.90-5.00) 10*3/uL Monocytes # 0.96 (0.20-1.00) 10*3/uL Eosinophils # 0.06 (0.04-0.35) 10*3/uL Basophils # 0.01 (0.00-0.10) 10*3/uL PT 10.4 (10.0-12.5) sec INR 0.9 (<1.2) APTT 27.7 (22.0-30.0) sec VBG pH (7.31-7.41) VBG pCO2 (37-51) mmHg Sodium 137 (137-145) mmol/L Potassium 4.1 (3.5-5.1) mmol/L Chloride 84 L (98-107) mmol/L Carbon Dioxide 50 H* (22-30) mmol/L Anion Gap 3 mmol/L BUN 24 H (9-20) mg/dL Creatinine 0.77 (0.66-1.25) mg/dL Est GFR (CKD-EPI)AfAm >90 (>60 ml/min/1.73 sqM) Est GFR (CKD-EPI)NonAf >90 (>60 ml/min/1.73 sqM) Glucose 106 H (74-99) mg/dL Plasma Lactic Acid Hernán (0.7-2.0) mmol/L Calcium 8.7 (8.4-10.2) mg/dL Magnesium 2.1 (1.6-2.3) mg/dL Total Bilirubin 0.3 (0.2-1.3) mg/dL AST 33 (17-59) U/L ALT 66 H (4-49) U/L Alkaline Phosphatase 76 (38-126) U/L Troponin I (0.000-0.034) ng/mL NT-Pro-B Natriuret Pep 365 pg/mL Total Protein 5.4 L (6.3-8.2) g/dL Albumin 2.9 L (3.5-5.0) g/dL 12/06/24 12/06/24 12/06/24 Range/Units 13:18 13:18 14:23 WBC (4.50-10.00) 10*3/uL RBC (4.40-5.60) 10*6/uL Hgb (13.0-17.0) g/dL Hct (39.6-50.0) % MCV (80.0-97.0) fL MCH (27.0-32.0) pg MCHC (32.0-37.0) g/dL Plt Count (140-440) 10*3/uL MPV (9.5-12.2) fL Immature Gran % (Auto) % Neutrophils % % Lymphocytes % % Monocytes % % Eosinophils % % Basophils % % Immature Gran # (0.00-0.04) 10*3/uL Neutrophils # (1.80-7.70) 10*3/uL Lymphocytes # (0.90-5.00) 10*3/uL Monocytes # (0.20-1.00) 10*3/uL Eosinophils # (0.04-0.35) 10*3/uL Basophils # (0.00-0.10) 10*3/uL PT (10.0-12.5) sec INR (<1.2) APTT (22.0-30.0) sec VBG pH 7.30 L (7.31-7.41) VBG pCO2 >98 H* (37-51) mmHg Sodium (137-145) mmol/L Potassium (3.5-5.1) mmol/L Chloride (98-107) mmol/L Carbon Dioxide (22-30) mmol/L Anion Gap mmol/L BUN (9-20) mg/dL Creatinine (0.66-1.25) mg/dL Est GFR (CKD-EPI)AfAm (>60 ml/min/1.73 sqM) Est GFR (CKD-EPI)NonAf (>60 ml/min/1.73 sqM) Glucose (74-99) mg/dL Plasma Lactic Acid Hernán 0.6 L (0.7-2.0) mmol/L Calcium (8.4-10.2) mg/dL Magnesium (1.6-2.3) mg/dL Total Bilirubin (0.2-1.3) mg/dL AST (17-59) U/L ALT (4-49) U/L Alkaline Phosphatase (38-126) U/L Troponin I <0.012 (0.000-0.034) ng/mL NT-Pro-B Natriuret Pep pg/mL Total Protein (6.3-8.2) g/dL Albumin (3.5-5.0) g/dL Disposition Clinical Impression: Hypercapnic respiratory failure Disposition: ADMITTED IP TO THIS HOSP Condition: Fair Referrals: Boston Min MD [Primary Care Provider] - 1-2 days Decision Time: 14:50
[2024-12-06 13:29] LABS: Basophils # (A) 0.01 10*3/uL (0.00-0.10); Basophils % (A) 0.1 %; Eosinophils # (A) 0.06 10*3/uL (0.04-0.35); Eosinophils % (A) 0.6 %; HCT 34.1 % (39.6-50.0); HGB 10.3 g/dL (13.0-17.0); Lymphocytes # (A) 1.36 10*3/uL (0.90-5.00); Lymphocytes % (A) 13.6 %; MCH 30.1 pg (27.0-32.0); MCHC 30.2 g/dL (32.0-37.0); MCV 99.7 fL (80.0-97.0); Monocytes # (A) 0.96 10*3/uL (0.20-1.00); Monocytes % (A) 9.6 %; Neutrophils # (A) 7.52 10*3/uL (1.80-7.70); Neutrophils % (A) 75.2 %; Platelet Count 159 10*3/uL (140-440); RBC 3.42 10*6/uL (4.40-5.60); RDW 14.2 % (11.5-14.5); WBC 10.00 10*3/uL (4.50-10.00)
[2024-12-06 13:44] LABS: ALT 66 U/L (4-49); AST 33 U/L (17-59); African American GFR (CKD) >90 (>60 ml/min/1.73 sqM); Albumin 2.9 g/dL (3.5-5.0); Alkaline Phosphatase 76 U/L (38-126); Blood Urea Nitrogen 24 mg/dL (9-20); Calcium 8.7 mg/dL (8.4-10.2); Chloride 84 mmol/L (98-107); Glucose 106 mg/dL (74-99); Magnesium 2.1 mg/dL (1.6-2.3); Non-African American GFR(CKD) >90 (>60 ml/min/1.73 sqM); Potassium 4.1 mmol/L (3.5-5.1); Sodium 137 mmol/L (137-145); Total Protein 5.4 g/dL (6.3-8.2)
[2024-12-06 13:47] LABS: INR 0.9 (<1.2); Partial Thromboplastin Time 27.7 sec (22.0-30.0); Prothrombin Time 10.4 sec (10.0-12.5)
[2024-12-06 13:50] LABS: NT-Pro-B-Type Natriuretic Pept 365 pg/mL
[2024-12-06 14:09] LABS: RSV Not Detected (Not Detectd)
[2024-12-06 14:18] LABS: Anion Gap 3 mmol/L; Carbon Dioxide 50 mmol/L (22-30)
--- NOTE | 2024-12-06 14:23 | XR ---
EXAMINATION TYPE: XR chest 2V DATE OF EXAM: 12/06/2024 2:18 PM COMPARISON: Chest radiographs from 11/28/2024 TECHNIQUE: XR chest 2V Frontal and lateral views of the chest. CLINICAL INDICATION:Male, 69 years old with history of dyspnea; FINDINGS: Lungs/Pleura: No focal consolidation. Chronic elevation of the right hemidiaphragm. Trace bilateral p leural effusions. No pneumothorax. Pulmonary vascularity: Unremarkable. Heart/mediastinum: Cardiomediastinal silhouette is enlarged and stable. Two lead cardiac conduction d evice overlying the left hemithorax with lead tips projecting over the right ventricle and right atri um. Musculoskeletal: No acute osseous pathology. IMPRESSION: Cardiomegaly with trace bilateral pleural effusions. No overt pulmonary vascular congestion. [facility], , 12/06/2024 2:20 PM
[2024-12-06 14:29] LABS: VBG PH 7.30 (7.31-7.41)
[2024-12-06 14:32] LABS: VBG PCO2 >98 mmHg (37-51)
[2024-12-06] MEDS ORDERED: NALOXONE 0.4 MG/ML 1 ML VIAL IV PRN (14:35)
[2024-12-06] MEDS: SODIUM CHLORIDE 0.9% 1,000 ML IV SCH (16:02)
[2024-12-06] MEDS ORDERED: DICLOFENAC SODIUM GEL 100 GM TUBE TOPICAL PRN (18:01)
[2024-12-06] MEDS: DILTIAZEM ORAL 60 MG TAB PO SCH (19:43)
[2024-12-06] MEDS: NICOTINE 14MG/24HR PATCH TRANSDERM SCH (19:43)
[2024-12-06] MEDS: oxyCODONE-APAP 10-325MG 1 EACH TAB PO PRN (19:47)
--- NOTE | 2024-12-06 20:18 | P.HPIM ---
History of Present Illness H&P Date: 12/06/24 Chief Complaint: Short of breath 69-year-old male with past medical history of CHF, CAD with previous PCI, CVA, HTN, HLD, lymphedema, morbid obesity, chronic hypoxic respiratory failure on home oxygen, COPD, NARCISO, tobacco use disorder, has a colostomy with end up pa rastomal hernia. Patient just in the hospital from November 25 through December 03. Was admitted with COPD exacerbation. Also cellulitis lower extremity and decubitus ulcer of the left heel. Debridement was carried out by Dr. Rueda. He will cultures grew multiple organisms including Enterococcus faecalis, Pseudomonas aeruginosa. Patient was seen by Dr. Frias from ID. Patient was discharged on IV Zosyn. And a midline. Patient presented to the ER for shortness of breath. Placed on BiPAP. Patient' s son at the bedside. Patient is having trouble getting the IV Zosyn. He could smell cigarette smoke in the house. Patient is currently on a BiPAP and still not able to give much of history. Review of system patient on a BiPAP Past medical history: COPD in an ex-smoker, CHF from diastolic 50-55%, obesity hypoventilation syndrome, coronary artery disease with stent, hyperlipidemia, hypertension, AICD, chronic low back pain L2 to L5 as chronic fractures, morbid obesity, home oxygen 2 L, and right rotator cuff. Social history: Lives alone . Smokes about half a pack a day, since 1969.. No alcohol. Physical examination: VITAL SIGNS: 98, 77, 22, 113 x 56, 96% on CPAP L GENERAL: Reclining, CPAP EYES: Pupils equal. Conjunctiva normal. HEENT: External appearance of nose and ears normal, oral cavity grossly normal. NECK: JVD unable to assess; masses not palpable. HEART: Heart sounds muffled, edema. LUNGS: Respiratory rate increased, decreased breath sound. Accessory muscles working. Unable to speak sentences. EXTREMITY: Edema. Chronic venous stasis changes with pigmentation. Dressing over the left leg. ABDOMEN: Soft, nontender, colostomy, with parastomal hernia, liver spleen not palpable. PSYCH: Lethargic INVESTIGATIONS, reviewed in the clinical context: December 06, 2024: White count 10 hemoglobin 10.3 platelets 159 potassium 4.1 bicarb 50 BUN 24 creatinine 0.77 Venous blood gases show pH of 7.3PCO2 greater than 98 Assessment and plan: - Acute on chronic exacerbation of hypoxic and hypercapnic respiratory failure secondary underlying COPD, and a current smoker BiPAP Pulmonary consulted -Acute left heel decubitus ulcer November 29 underwent deep wound debridement by Dr. Rueda. Deep wound culture- multiple organisms On IV Zosyn per ID. Was discharged for 2 weeks of IV Zosyn per ID Consult Dr. Rueda and ID. -Acute COPD exacerbation with current smoker. DuoNeb every 4. Nebulized Perforomist and Pulmicort.. IV Solu-Medrol -Chronic bilateral lower, venous insufficiency and possibly lymphedema, with deep pigmentation - Persistent atrial fibrillation. Rate controlled. Eliquis. Cardizem. Lopressor. -Chronic nicotine dependence, cigarette smoker Nicotine patch - peripheral neuropathy -Colostomy bag, with parastomal hernia Patient to follow-up with his surgeon outpatient -Chronic congestive heart failure from diastolic dysfunction EF 50-55%: Stable Lasix. -Obesity hypoventilation syndrome -Coronary artery disease with stent Aspirin Lopressor -Hyperlipidemia Lipitor -Essential hypertension Cardizem. Lopressor. -AICD - BPH Flomax - GERD Protonix -Chronic low back pain from L2 to L5 osteoarthritis with chronic fractures -Morbid obesity BMI 59.9 Weight loss measures -Chronic hypoxic respiratory failure , secondary to underlying COPD on 2 L oxygen at home -Chronic medical debility uses a motorized wheelchair -Full code Care was discussed with the patient's son at the bedside. Questions answered. Past Medical History Past Medical History: Coronary Artery Disease (CAD), Chest Pain / Angina, COPD, CVA/TIA, Hyperlipidemia, Hypertension, Myocardial Infarction ([place]), Osteoarthritis (OA), Respiratory Disorder, Sleep Apnea/CPAP/BIPAP Additional Past Medical History / Comment(s): obesity, obesity hypoventilation syndrome, suspected CHF and cor pulmonale, previous history of defibrillator placement, CVA in 2004, chronic back pain secondary to DDD and spinal canal stenosis, history of vertebral fracture L2 through L5, chronic lower extremity edema, diverticular disease, L knee fx in past and torn R rotator cuff, cellulitis, hospitalization for gallbladder complications Last Myocardial Infarction Date:: 2011 History of Any Multi-Drug Resistant Organisms: None Reported Past Surgical History: Bowel Resection, Cholecystectomy, Heart Catheterization With Stent, Hernia Repair, Pacemaker Additional Past Surgical History / Comment(s): PTCA with stent (4 total), 04/05/13 [employer] pacemaker, umbilical hernia repair, colonoscopy, circumcision, R eye surgery for strabismus, gallbladder stents One removed from on 03/19, Colostomy with open wounds. Past Anesthesia/Blood Transfusion Reactions: No Reported Reaction Date of Last Stent Placement:: 2012 Type of Cardiac Device: Permanent Pacemaker Device Placement Date:: 04/05/13 Past Psychological History: No Psychological Hx Reported Smoking Status: Current some day smoker Past Alcohol Use History: None Reported Past Drug Use History: None Reported - Past Family History Father Family Medical History: Musculoskeletal Disorder, Neurologic Disorder Additional Family Medical History / Comment(s): Father had parkinson's dx and at age 84 yrs. Mother Family Medical History: Myocardial Infarction (TN) Additional Family Medical History / Comment(s): Mother had 3 vessel CABG. She of a massive [place] at the age of 53 yrs. Medications and Allergies Home Medications Medication Instructions Recorded Confirmed Type Clopidogrel [Plavix] 75 mg PO DAILY 03/20/19 12/06/24 History Sennosides/Docusate Sodium [Senna 1 tab PO BID 02/07/23 12/06/24 History Plus 8.6-50 mg Tablet] oxyCODONE HCL/ACETAMINOPHEN 1 tab PO Q6HR PRN 02/07/23 12/06/24 History [Percocet 10-325 mg] Budesonide/Formoterol Fumarate 2 puff INHALATION RT-BID 03/03/23 12/06/24 History [Symbicort 80-4.5 Mcg Inhaler] Ipratropium-Albuterol Nebulize 3 ml INHALATION RT-QID 03/03/23 12/06/24 History [Duoneb 0.5 mg-3 mg/3 ml Soln] Diclofenac Sodium Gel [Voltaren 1% 2 gm TOPICAL QID PRN gm 03/07/23 12/06/24 Rx Gel] SILVER sulfADIAZINE CREAM 1 applic TOPICAL DAILY PRN 03/23/23 12/06/24 History [Silvadene Cream] Apixaban [Eliquis] 5 mg PO BID 11/25/24 12/06/24 History Aspirin EC [Ecotrin Low Dose] 81 mg PO DAILY 11/25/24 12/06/24 History Atorvastatin [Lipitor] 40 mg PO HS 11/25/24 12/06/24 History Ciclopirox Olamine Cream [Ciclodan] 1 applic TOPICAL BID 11/25/24 12/06/24 History Isosorbide Mononitrate ER [Imdur] 30 mg PO PC-LUNCH 11/25/24 12/06/24 History Losartan [Cozaar] 25 mg PO HS 11/25/24 12/06/24 History Metoprolol Tartrate [Lopressor] 25 mg PO TID 11/25/24 12/06/24 History Pantoprazole Sodium [Protonix] 40 mg PO AC-BRKFST 11/25/24 12/06/24 History Tamsulosin [Flomax] 0.4 mg PO DAILY 11/25/24 12/06/24 History dilTIAZem HCL 60 mg PO Q8H 11/25/24 12/06/24 History Amiodarone [Cordarone] 200 mg PO DAILY #0 12/03/24 12/06/24 Rx Furosemide [Lasix] 40 mg PO BID #0 12/03/24 12/06/24 Rx Nicotine 14Mg/24Hr Patch [Habitrol] 1 patch TRANSDERM DAILY #30 patch 12/03/24 12/06/24 Rx Piperacillin-Tazobactam [Zosyn] 4.5 gm IVPB Q8HR #42 each 12/03/24 12/06/24 Rx predniSONE See Taper PO DIRECTED 12/06/24 12/06/24 History Allergies Allergy/AdvReac Type Severity Reaction Status Date / Time No Known Allergies Allergy Verified 11/25/24 12:46 Physical Exam Vitals: Vital Signs Temp Pulse Resp BP Pulse Ox FiO2 12/06/24 18:44 35 12/06/24 16:22 75 15 97/69 96 12/06/24 16:08 79 14 88/31 95 12/06/24 15:28 16 12/06/24 14:40 35 12/06/24 13:00 50 12/06/24 12:46 98.0 F 77 22 113/56 96 12/06/24 12:45 50 Intake and Output 12/06/24 12/06/24 12/06/24 06:59 14:59 22:59 Other: Weight 154.221 kg Results CBC & Chem 7: 12/06/24 13:18 12/06/24 13:18 Labs: Abnormal Lab Results - Last 24 Hours (Table) 12/06/24 12/06/24 12/06/24 Range/Units 13:18 13:18 13:18 RBC 3.42 L (4.40-5.60) 10*6/uL Hgb 10.3 L (13.0-17.0) g/dL Hct 34.1 L (39.6-50.0) % MCV 99.7 H (80.0-97.0) fL MCHC 30.2 L (32.0-37.0) g/dL Immature Gran # 0.09 H (0.00-0.04) 10*3/uL VBG pH (7.31-7.41) VBG pCO2 (37-51) mmHg Chloride 84 L (98-107) mmol/L Carbon Dioxide 50 H* (22-30) mmol/L BUN 24 H (9-20) mg/dL Glucose 106 H (74-99) mg/dL Plasma Lactic Acid Hernán 0.6 L (0.7-2.0) mmol/L ALT 66 H (4-49) U/L Total Protein 5.4 L (6.3-8.2) g/dL Albumin 2.9 L (3.5-5.0) g/dL 12/06/24 Range/Units 14:23 RBC (4.40-5.60) 10*6/uL Hgb (13.0-17.0) g/dL Hct (39.6-50.0) % MCV (80.0-97.0) fL MCHC (32.0-37.0) g/dL Immature Gran # (0.00-0.04) 10*3/uL VBG pH 7.30 L (7.31-7.41) VBG pCO2 >98 H* (37-51) mmHg Chloride (98-107) mmol/L Carbon Dioxide (22-30) mmol/L BUN (9-20) mg/dL Glucose (74-99) mg/dL Plasma Lactic Acid Hernán (0.7-2.0) mmol/L ALT (4-49) U/L Total Protein (6.3-8.2) g/dL Albumin (3.5-5.0) g/dL
[2024-12-06] MEDS: methylPREDNISolone SOD SUCCI 40 MG/ML 1 ML VIAL IV SCH (21:29)
[2024-12-06] MEDS: SENNOSIDES-DOCUSATE SODIUM 1 EACH TAB PO SCH (21:30)
[2024-12-06] MEDS: APIXABAN 5 MG TAB PO SCH (21:31)
[2024-12-06] MEDS: FUROSEMIDE 40 MG TAB PO SCH (21:31)
[2024-12-06] MEDS: LOSARTAN 25 MG TAB PO SCH (21:31)
[2024-12-06] MEDS: ATORVASTATIN 40 MG TAB PO SCH (21:31)
[2024-12-06] MEDS: METOPROLOL TARTRATE 25 MG TAB PO SCH (21:37)
[2024-12-06] MEDS: CLOTRIMAZOLE 1% CREAM 30 GM TUBE TOPICAL SCH (21:38)
[2024-12-06] MEDS: IPRATROPIUM-ALBUTEROL 3 ML NEB INHALATION SCH (23:30)
[2024-12-06] MEDS: PIPERACILLIN-TAZOBACTAM 3.375 GM VIAL IVPB SCH (23:45)
[2024-12-07] MEDS: BUDESONIDE 1 MG/2 ML NEBU INHALATION SCH (08:38)
[2024-12-07] MEDS: FORMOTEROL FUMARATE 20 MCG/2 ML NEBU INHALATION SCH (08:38)
[2024-12-07] MEDS: CLOPIDOGREL 75 MG TAB PO SCH (09:05)
[2024-12-07] MEDS: ASPIRIN 81 MG PO SCH (09:05)
[2024-12-07] MEDS: PANTOPRAZOLE 40 MG TABLET PO SCH (09:06)
[2024-12-07] MEDS: AMIODARONE 200 MG TAB PO SCH (09:06)
[2024-12-07] MEDS: TAMSULOSIN 0.4 MG CAP.ER.24H PO SCH (09:06)
--- NOTE | 2024-12-07 14:23 | P.CNPUL ---
History of Present Illness Consult date: 12/07/24 Requesting physician: Stevo Winn Reason for consult: dyspnea, other Chief complaint: Cellulitis, left heel infection, respiratory failure. History of present illness: Pulmonary consult dated December 07, 2024. 69-year-old male well-known to our service. The patient was seen in the emergency department, on December 06, 2024. He apparently came in there with complaints of upper respiratory tract infection, difficulty in breathing. According to the patient's son, the main reason that he came in was because he was expected to give himself antibiotics for his recent infection, 3 times a day, and apparently could not do that. He thought a visiting nurse was going to be coming to the house 3 times a day, to do the infusion for him. In addition, the patient complained of shortness of breath, which necessitated a call to EMS. That was not the first call. The patient was found to be dyspneic, placed on oxygen, and brought to the emergency room, for further management, and monitoring. The patient is seen today in room 23, in the emergency department. His son is at the bedside. He is currently on BiPAP, with settings of 14/6, and 35%. He is getting Zosyn IV. He is also on saline at 20 cc an hour. He has a recent left heel infection, caused by both Pseudomonas and Enterococcus. He was discharged from the hospital recently on December 03, and readmitted on December 06. Current labs include a white count of 10, hemoglobin 10.3, hematocrit 34.1, and a normal platelet count. Venous blood gases showed a PCO2 of greater than 98, and a pH is 7.3. Sodium 137, potassium 4.1, chlorides 84, CO2 50, anion gap 3, BUN 24, and creatinine 0.77. Glucose was 106. Lactic acid was 0.6. Viral screen was negative. Chest x-ray shows cardiomegaly, with bilateral pleural effusions. There was no overt pulmonary vascular congestion. Review of Systems REVIEW OF SYSTEMS: CONSTITUTIONAL: [Negative.] NEUROLOGIC: [ Negative.] HEENT: [ Negative.] CARDIAC: [Negative.] PULMONARY: Shortness of breath. GI: [Negative.] : [Negative.] RHEUMATOLOGIC: [ Negative.] IMMUNOLOGIC: [ Negative.] ENDOCRINE: [Negative. ] DERMATOLOGIC: [Negative.] Past Medical History Past Medical History: Coronary Artery Disease (CAD), Chest Pain / Angina, COPD, CVA/TIA, Hyperlipidemia, Hypertension, Myocardial Infarction ([place]), Osteoarthritis (OA), Respiratory Disorder, Sleep Apnea/CPAP/BIPAP Additional Past Medical History / Comment(s): obesity, obesity hypoventilation syndrome, suspected CHF and cor pulmonale, previous history of defibrillator placement, CVA in 2004, chronic back pain secondary to DDD and spinal canal stenosis, history of vertebral fracture L2 through L5, chronic lower extremity edema, diverticular disease, L knee fx in past and torn R rotator cuff, cellulitis, hospitalization for gallbladder complications Last Myocardial Infarction Date:: 2011 History of Any Multi-Drug Resistant Organisms: None Reported Past Surgical History: Bowel Resection, Cholecystectomy, Heart Catheterization With Stent, Hernia Repair, Pacemaker Additional Past Surgical History / Comment(s): PTCA with stent (4 total), 04/05/13 [employer] pacemaker, 1989' umbilical hernia repair, colonoscopy, circumcision, R eye surgery for strabismus, gallbladder stents One removed from HF on 03/19, Colostomy with open wounds. Past Anesthesia/Blood Transfusion Reactions: No Reported Reaction Date of Last Stent Placement:: 2012 Type of Cardiac Device: Permanent Pacemaker Device Placement Date:: 04/05/13 Past Psychological History: No Psychological Hx Reported Smoking Status: Current some day smoker Past Alcohol Use History: None Reported Past Drug Use History: None Reported - Past Family History Father Family Medical History: Musculoskeletal Disorder, Neurologic Disorder Additional Family Medical History / Comment(s): Father had parkinson's dx and at age 84 yrs. Mother Family Medical History: Myocardial Infarction ([place]) Additional Family Medical History / Comment(s): Mother had 3 vessel CABG. She of a massive [place] at the age of 53 yrs. Medications and Allergies Home Medications Medication Instructions Recorded Confirmed Type Clopidogrel [Plavix] 75 mg PO DAILY 03/20/19 12/06/24 History Sennosides/Docusate Sodium [Senna 1 tab PO BID 02/07/23 12/06/24 History Plus 8.6-50 mg Tablet] oxyCODONE HCL/ACETAMINOPHEN 1 tab PO Q6HR PRN 02/07/23 12/06/24 History [Percocet 10-325 mg] Budesonide/Formoterol Fumarate 2 puff INHALATION RT-BID 03/03/23 12/06/24 History [Symbicort 80-4.5 Mcg Inhaler] Ipratropium-Albuterol Nebulize 3 ml INHALATION RT-QID 03/03/23 12/06/24 History [Duoneb 0.5 mg-3 mg/3 ml Soln] Diclofenac Sodium Gel [Voltaren 1% 2 gm TOPICAL QID PRN gm 03/07/23 12/06/24 Rx Gel] SILVER sulfADIAZINE CREAM 1 applic TOPICAL DAILY PRN 03/23/23 12/06/24 History [Silvadene Cream] Apixaban [Eliquis] 5 mg PO BID 11/25/24 12/06/24 History Aspirin EC [Ecotrin Low Dose] 81 mg PO DAILY 11/25/24 12/06/24 History Atorvastatin [Lipitor] 40 mg PO HS 11/25/24 12/06/24 History Ciclopirox Olamine Cream [Ciclodan] 1 applic TOPICAL BID 11/25/24 12/06/24 History Isosorbide Mononitrate ER [Imdur] 30 mg PO PC-LUNCH 11/25/24 12/06/24 History Losartan [Cozaar] 25 mg PO HS 11/25/24 12/06/24 History Metoprolol Tartrate [Lopressor] 25 mg PO TID 11/25/24 12/06/24 History Pantoprazole Sodium [Protonix] 40 mg PO AC-BRKFST 11/25/24 12/06/24 History Tamsulosin [Flomax] 0.4 mg PO DAILY 11/25/24 12/06/24 History dilTIAZem HCL 60 mg PO Q8H 11/25/24 12/06/24 History Amiodarone [Cordarone] 200 mg PO DAILY #0 12/03/24 12/06/24 Rx Furosemide [Lasix] 40 mg PO BID #0 12/03/24 12/06/24 Rx Nicotine 14Mg/24Hr Patch [Habitrol] 1 patch TRANSDERM DAILY #30 patch 12/03/24 12/06/24 Rx Piperacillin-Tazobactam [Zosyn] 4.5 gm IVPB Q8HR #42 each 12/03/24 12/06/24 Rx predniSONE See Taper PO DIRECTED 12/06/24 12/06/24 History Allergies Allergy/AdvReac Type Severity Reaction Status Date / Time No Known Allergies Allergy Verified 11/25/24 12:46 Physical Exam Osteopathic Statement: *. No significant issues noted on an osteopathic structural exam other than those noted in the History and Physical/Consult. Vitals: Vital Signs Temp Pulse Resp BP Pulse Ox FiO2 12/07/24 12:22 79 12/07/24 12:14 65 12/07/24 10:49 35 12/07/24 09:00 104 H 12/07/24 08:47 102 H 12/07/24 08:39 104 H 98 35 12/07/24 08:35 35 12/07/24 07:00 83 20 105/67 98 12/07/24 05:59 98.7 F 76 14 114/68 97 12/07/24 04:29 82 13 112/67 96 12/07/24 04:13 97 16 12/07/24 04:07 101 H 17 35 12/07/24 01:41 81 16 131/94 94 L 12/06/24 23:40 76 16 12/06/24 23:31 76 16 35 12/06/24 22:00 74 15 120/67 95 12/06/24 21:24 98.1 F 70 16 113/68 96 12/06/24 20:09 88 15 122/78 95 12/06/24 19:30 86 14 129/74 94 L 12/06/24 18:44 35 12/06/24 17:46 86 15 111/88 96 12/06/24 16:22 75 15 97/69 96 12/06/24 16:08 79 14 88/31 95 12/06/24 15:28 16 12/06/24 14:40 35 Intake and Output 12/06/24 12/07/24 12/07/24 22:59 06:59 14:59 Other: Voiding Method Urinal No acute distress, lethargic, currently on BiPAP. HEENT examination is grossly unremarkable. Neck supple. Full range of motion. No adenopathy thyromegaly or neck vein distention. Cardiovascular examination reveals regular rhythm rate. S1-S2 normal. No S3 or S4. No discernible murmur noted. Heart sounds are distant. Lungs reveal minimal scattered rhonchi. No wheezes. No crackles. Breath sounds equal bilaterally. Abdomen obese, without bowel sounds. No masses or tenderness. Extremities reveal significant edema, and cellulitis, with chronic venous stasis changes. Skin reveals chronic changes particular in the lower extremities. Neurologic examination is difficult to evaluate as the patient is quite lethar gi. Results - Laboratory Findings CBC and BMP: 12/06/24 13:18 12/06/24 13:18 PT/INR, D-dimer PT 10.4 sec (10.0-12.5) 12/06/24 13:18 INR 0.9 (<1.2) 12/06/24 13:18 Abnormal lab findings: Abnormal Labs 12/06/24 12/06/24 12/06/24 13:18 13:18 13:18 RBC 3.42 L Hgb 10.3 L Hct 34.1 L MCV 99.7 H MCHC 30.2 L Immature Gran # 0.09 H VBG pH VBG pCO2 Chloride 84 L Carbon Dioxide 50 H* BUN 24 H Glucose 106 H Plasma Lactic Acid Hernán 0.6 L ALT 66 H Total Protein 5.4 L Albumin 2.9 L 12/06/24 14:23 RBC Hgb Hct MCV MCHC Immature Gran # VBG pH 7.30 L VBG pCO2 >98 H* Chloride Carbon Dioxide BUN Glucose Plasma Lactic Acid Hernán ALT Total Protein Albumin - Diagnostic Findings Chest x-ray: image reviewed Assessment and Plan Assessment: Acute on chronic shortness of breath, secondary to COPD exacerbation. The patient is currently maintained on BiPAP. Chronic left heel infection, secondary to Pseudomonas and Enterococcus, currently on Zosyn. Morbid obesity, with a BMI of 46.1 kg/m. Chronic hypoxemic respiratory failure, multifactorial, part related to COPD, obstructive sleep apnea syndrome, and possible pickwickian syndrome. History of obstructive sleep apnea syndrome. History of chronic tobacco use. Coronary artery disease with previous PCI. Ischemic cardiomyopathy, status post AICD placement. History of CVA. History of hypertension. History of hyperlipidemia. Chronic lower extremity lymphedema and chronic venous stasis changes with hyperpigmentation. History of bowel resection, with diverting colostomy. Degenerative disc disease. History of diverticular disease. Peripheral neuropathy. Chronic medical debility, with multiple hospital admissions. Plan: Plan dated December 07, 2024. The patient is seen in the emergency department, room 23. His son is at the bedside. The patient is currently on BiPAP. The patient was discharged recently on December 03, and readmitted on December 06. Apparently according to the son, the patient went home with the understanding that he would be a visiting nurse coming to the house 3 times a day, to infuse his Zosyn. The patient apparently got frustrated with not having any help with the Zosyn, and called EMS, not once but twice. The second call, necessitated a trip into the hospital, because of shortness of breath. The patient was seen today in the emergency department. He is on BiPAP. He is also on Zosyn, and saline at 20 cc an hour. Labs, x- rays, and medications are reviewed. The patient should be discharged to rehab facility or care home, when he is discharged again, as he is unable to maintain himself at home. Dictation was produced using [employer] dictation software. Please excuse any grammatical, word or spelling errors. Time with Patient: Greater than 30
[2024-12-07] MEDS: ISOSORBIDE MONONITRATE ER 30 MG TAB.ER.24H PO SCH (15:14)
--- NOTE | 2024-12-07 17:03 | P.PN ---
Progress Note - Text Progress Note Date: 12/07/24 Chief Complaint: Short of breath 69-year-old male with past medical history of CHF, CAD with previous PCI, CVA, HTN, HLD, lymphedema, morbid obesity, chronic hypoxic respiratory failure on home oxygen, COPD, NARCISO, tobacco use disorder, has a colostomy with end up parastomal hernia. Patient just in the hospital from November 25 through December 03. Was admitted with COPD exacerbation. Also cellulitis lower extremity and decubitus ulcer of the left heel. Debridement was carried out by Dr. Rueda. He will cultures grew multiple organisms including Enterococcus faecalis, Pseudomonas aeruginosa. Patient was seen by Dr. Frias from [place]. Patient was discharged on IV Zosyn. And a midline. Patient presented to the ER for shortness of breath. Placed on BiPAP. Patient's son at the bedside. Patient is having trouble getting the IV Zosyn. He could smell cigarette smoke in the house. Patient is currently on a BiPAP and still not able to give much of history. December 07: Saw the patient overflow in the ER. Still lethargic/encephalopathic but arousable. Placed back on BiPAP. Active Medications Albuterol/Ipratropium (Ipratropium-Albuterol 3 Ml Neb) 3 ml INHALATION RT-Q4H [facility] Last Admin: 12/07/24 15:51 Dose: 3 ml Amiodarone HCl (Amiodarone 200 Mg Tab) 200 mg PO DAILY [facility] Last Admin: 12/07/24 09:06 Dose: 200 mg Apixaban (Apixaban 5 Mg Tab) 5 mg PO BID [facility]; Protocol Last Admin: 12/07/24 09:06 Dose: 5 mg Aspirin (Aspirin 81 Mg) 81 mg PO DAILY [facility] Last Admin: 12/07/24 09:05 Dose: 81 mg Atorvastatin Calcium (Atorvastatin 40 Mg Tab) 40 mg PO HS [facility] Last Admin: 12/06/24 21:31 Dose: 40 mg Budesonide (Budesonide 1 Mg/2 Ml Nebu) 1 mg INHALATION RT-BID [facility] Last Admin: 12/07/24 08:38 Dose: 1 mg Clopidogrel Bisulfate (Clopidogrel 75 Mg Tab) 75 mg PO DAILY [facility] Last Admin: 12/07/24 09:05 Dose: 75 mg Clotrimazole (Clotrimazole 1% Cream 30 Gm Tube) 1 applic TOPICAL BID [facility] Last Admin: 12/07/24 09:15 Dose: 1 applic Diclofenac Sodium (Diclofenac Sodium Gel 100 Gm Tube) 2 gm TOPICAL QID PRN; Protocol PRN Reason: pain Diltiazem HCl (Diltiazem Oral 60 Mg Tab) 60 mg PO Q8H [facility] Last Admin: 12/07/24 10:20 Dose: 60 mg Formoterol Fumarate (Formoterol Fumarate 20 Mcg/2 Ml Nebu) 20 mcg INHALATION RT-BID [facility] Last Admin: 12/07/24 08:38 Dose: 20 mcg Furosemide (Furosemide 40 Mg Tab) 40 mg PO BID [facility] Last Admin: 12/07/24 09:06 Dose: 40 mg Sodium Chloride (Saline 0.9%) 1,000 mls @ 20 mls/hr IV .Q24H [facility] Last Admin: 12/07/24 15:21 Dose: 20 mls/hr Isosorbide Mononitrate (Isosorbide Mononitrate Er 30 Mg Tab.Er.24h) 30 mg PO PC-LUNCH [facility] Last Admin: 12/07/24 15:14 Dose: Not Given Losartan Potassium (Losartan 25 Mg Tab) 25 mg PO HS [facility] Last Admin: 12/06/24 21:31 Dose: 25 mg Methylprednisolone Sodium Succinate (Methylprednisolone Sod Succi 40 Mg/Ml 1 Ml Vial) 40 mg IV Q8H [facility] Last Admin: 12/07/24 15:14 Dose: Not Given Metoprolol Tartrate (Metoprolol Tartrate 25 Mg Tab) 25 mg PO TID [facility] Last Admin: 12/07/24 15:20 Dose: 25 mg Naloxone HCl (Naloxone 0.4 Mg/Ml 1 Ml Vial) 0.2 mg IV Q2M PRN PRN Reason: Opioid Reversal Nicotine (Nicotine 14mg/24hr Patch) 1 patch TRANSDERM DAILY [facility] Last Admin: 12/07/24 09:15 Dose: Not Given Oxycodone/Acetaminophen (Oxycodone-Apap 10-325mg 1 Each Tab) 1 each PO Q6HR PRN PRN Reason: Pain Last Admin: 12/07/24 15:20 Dose: 1 each Pantoprazole Sodium (Pantoprazole 40 Mg Tablet) 40 mg PO AC-BRKFST [facility] Last Admin: 12/07/24 09:06 Dose: 40 mg Piperacillin Sod/Tazobactam Sod (Piperacillin-Tazobactam 3.375 Gm Vial) 3.375 gm IVPB Q8HR [facility]; Protocol Last Admin: 12/07/24 15:21 Dose: 3.375 gm Senna/Docusate Sodium (Sennosides-Docusate Sodium 1 Each Tab) 1 each PO BID [facility] Last Admin: 12/07/24 09:06 Dose: 1 each Silver Sulfadiazine (Silver Sulfadiazine 1% Cream 25 Gm Tube) 1 applic TOPICAL DAILY PRN; Protocol PRN Reason: LEGS Tamsulosin HCl (Tamsulosin 0.4 Mg Cap.Er.24h) 0.4 mg PO DAILY [facility] Last Admin: 12/07/24 09:06 Dose: 0.4 mg Past medical history: COPD in an ex-smoker, CHF from diastolic 50-55%, obesity hypoventilation syndrome, coronary artery disease with stent, hyperlipidemia, hypertension, AICD, chronic low back pain L2 to L5 as chronic fractures, morbid obesity, home oxygen 2 L, and right rotator cuff. Social history: Lives alone . Smokes about half a pack a day, since 1969.. No alcohol. Physical examination: VITAL SIGNS: 98.7, 83, 20, 105 x 67, 98% on BiPAP GENERAL: Lethargic on BiPAP EYES: Pupils equal. Conjunctiva normal. HEENT: External appearance of nose and ears normal, oral cavity grossly normal. NECK: JVD unable to assess; masses not palpable. HEART: Heart sounds muffled, edema. LUNGS: Respiratory rate increased, decreased breath sound. Accessory muscles working. Unable to speak sentences. EXTREMITY: Edema. Chronic venous stasis changes with pigmentation. Dressing over the left leg. ABDOMEN: Soft, nontender, colostomy, with parastomal hernia, liver spleen not palpable. PSYCH: Lethargic INVESTIGATIONS, reviewed in the clinical context: December 06, 2024: White count 10 hemoglobin 10.3 platelets 159 potassium 4.1 bicarb 50 BUN 24 creatinine 0.77 Venous blood gases show pH of 7.3PCO2 greater than 98 Assessment and plan: - Acute on chronic exacerbation of hypoxic and hypercapnic respiratory failure secondary underlying COPD, and a current smoker: Not improving BiPAP Pulmonary following -Acute left heel decubitus ulcer November 29 underwent deep wound debridement by Dr. Rueda. Deep wound culture- multiple organisms On IV Zosyn per ID. Was discharged for 2 weeks of IV Zosyn per ID Consult Dr. Rueda and ID. -Acute COPD exacerbation with current smoker: Slow to respond. DuoNeb every 4. Nebulized Perforomist and Pulmicort.. IV Solu-Medrol -Chronic bilateral lower, venous insufficiency and possibly lymphedema, with deep pigmentation - Persistent atrial fibrillation. Rate controlled. Eliquis. Cardizem. Lopressor. -Chronic nicotine dependence, cigarette smoker Nicotine patch - peripheral neuropathy -Colostomy bag, with parastomal hernia Patient to follow-up with his surgeon outpatient -Chronic congestive heart failure from diastolic dysfunction EF 50-55%: Stable Lasix. -Obesity hypoventilation syndrome -Coronary artery disease with stent Aspirin Lopressor -Hyperlipidemia Lipitor -Essential hypertension Cardizem. Lopressor. -AICD - BPH Flomax - GERD Protonix -Chronic low back pain from L2 to L5 osteoarthritis with chronic fractures -Morbid obesity BMI 59.9 Weight loss measures -Chronic hypoxic respiratory failure , secondary to underlying COPD on 2 L oxygen at home -Chronic medical debility uses a motorized wheelchair -Full code BiPAP. Follow-up with consultants. Past Medical History Past Medical History: Coronary Artery Disease (CAD), Chest Pain / Angina, COPD, CVA/TIA, Hyperlipidemia, Hypertension, Myocardial Infarction ([place]), Osteoarthritis (OA), Respiratory Disorder, Sleep Apnea/CPAP/BIPAP Additional Past Medical History / Comment(s): obesity, obesity hypoventilation syndrome, suspected CHF and cor pulmonale, previous history of defibrillator placement, CVA in 2004, chronic back pain secondary to DDD and spinal canal stenosis, history of vertebral fracture L2 through L5, chronic lower extremity edema, diverticular disease, L knee fx in past and torn R rotator cuff, cellulitis, hospitalization for gallbladder complications Last Myocardial Infarction Date:: 2011 History of Any Multi-Drug Resistant Organisms: None Reported Past Surgical History: Bowel Resection, Cholecystectomy, Heart Catheterization With Stent, Hernia Repair, Pacemaker Additional Past Surgical History / Comment(s): PTCA with stent (4 total), 04/05/13 [employer] pacemaker, umbilical hernia repair, colonoscopy, circumcision, R eye surgery for strabismus, gallbladder stents One removed from HF on 03/19, Colostomy with open wounds. Past Anesthesia/Blood Transfusion Reactions: No Reported Reaction Date of Last Stent Placement:: 2012 Type of Cardiac Device: Permanent Pacemaker Device Placement Date:: 04/05/13 Past Psychological History: No Psychological Hx Reported Smoking Status: Current some day smoker Past Alcohol Use History: None Reported Past Drug Use History: None Reported
--- NOTE | 2024-12-08 10:57 | P.PN ---
Subjective Progress Note Date: 12/08/24 Principal diagnosis: Cellulitis. Pulmonary consult dated December 07, 2024. 69-year-old male well-known to our service. The patient was seen in the emergency department, on December 06, 2024. He apparently came in there with complaints of upper respiratory tract infection, difficulty in breathing. According to the patient's son, the main reason that he came in was because he was expected to give himself antibiotics for his recent infection, 3 times a day, and apparently could not do that. He thought a visiting nurse was going to be coming to the house 3 times a day, to do the infusion for him. In addition, the patient complained of shortness of breath, which necessitated a call to EMS. That was not the first call. The patient was found to be dyspneic, placed on oxygen, and brought to the emergency room, for further management, and monitoring. The patient is seen today in room 23, in the emergency department. His son is at the bedside. He is currently on BiPAP, with settings of 14/6, and 35%. He is getting Zosyn IV. He is also on saline at 20 cc an hour. He has a recent left heel infection, caused by both Pseudomonas and Enterococcus. He was discharged from the hospital recently on December 03, and readmitted on December 06. Current labs include a white count of 10, hemoglobin 10.3, hematocrit 34.1, and a normal platelet count. Venous blood gases showed a PCO2 of greater than 98, and a pH is 7.3. Sodium 137, potassium 4.1, chlorides 84, CO2 50, anion gap 3, BUN 24, and creatinine 0.77. Glucose was 106. Lactic acid was 0.6. Viral screen was negative. Chest x-ray shows cardiomegaly, with bilateral pleural effusions. There was no overt pulmonary vascular congestion. Progress note dated December 08, 2024. 69-year-old male seen yesterday in consultation. Please see my note above. He was seen in the emergency department. He is seen today in room 371. He is sitting in a chair, next to the hospital bed. He is getting saline at 20 cc an hour, nasal cannula 4 L. He did wear the BiPAP last night, for a number of hours, with settings of 14/6, 35%. No new labs today. The previous labs have been reviewed. The patient was previously discharged on Zosyn, for a left heel infection. He apparently could not administer the medication at home, so he came into the emergency room to be evaluated. Talking to his son yesterday, the patient would likely be discharged to some sort of rehab facility or prison, where he can have some help with his antibiotics. Objective - Vital Signs Vital signs: Vital Signs Temp 98.3 F 12/08/24 09:29 Pulse 76 12/08/24 10:21 Resp 16 12/08/24 09:29 BP 110/72 12/08/24 09:29 Pulse Ox 99 12/08/24 09:56 FiO2 35 12/08/24 01:04 Intake & Output 12/07/24 12/08/24 12/08/24 18:59 06:59 18:59 Intake Total 118 1080 118 Output Total 350 1450 Balance -232 -370 118 Weight 154.221 kg Intake: Oral 118 1080 118 Output: Urine 300 1450 Stool 50 Other: Voiding Method Urinal Urinal - Exam No acute distress, awake and alert, sitting in the chair next to the hospital bed, on 4 L. HEENT examination is grossly unremarkable. Neck supple. Full range of motion. No adenopathy thyromegaly or neck vein distention. Cardiovascular examination reveals regular rhythm rate. S1-S2 normal. No S3 or S4. No discernible murmur noted. Heart sounds are distant. Lungs reveal minimal scattered rhonchi. No wheezes. No crackles. Breath sounds equal bilaterally. Abdomen obese, without bowel sounds. No masses or tenderness. Extremities reveal significant edema, and cellulitis, with chronic venous stasis changes. Skin reveals chronic changes particular in the lower extremities. Neurologic examination is brief, but nonfocal. - Labs CBC & Chem 7: 12/06/24 13:18 12/06/24 13:18 Assessment and Plan Assessment: Acute on chronic shortness of breath, secondary to COPD exacerbation. The patie nt is currently maintained on BiPAP. Chronic left heel infection, secondary to Pseudomonas and Enterococcus, currently on Zosyn. Morbid obesity, with a BMI of 46.1 kg/m. Chronic hypoxemic respiratory failure, multifactorial, part related to COPD, obstructive sleep apnea syndrome, and possible pickwickian syndrome. History of obstructive sleep apnea syndrome. History of chronic tobacco use. Coronary artery disease with previous PCI. Ischemic cardiomyopathy, status post AICD placement. History of CVA. History of hypertension. History of hyperlipidemia. Chronic lower extremity lymphedema and chronic venous stasis changes with hyperpigmentation. History of bowel resection, with diverting colostomy. Degenerative disc disease. History of diverticular disease. Peripheral neuropathy. Chronic medical debility, with multiple hospital admissions. Plan: Plan dated December 07, 2024. The patient is seen in the emergency department, room 23. His son is at the bedside. The patient is currently on BiPAP. The patient was discharged recently on December 03, and readmitted on December 06. Apparently according to the son, the patient went home with the understanding that he would be a visiting nurse coming to the house 3 times a day, to infuse his Zosyn. The patient apparently got frustrated with not having any help with the Zosyn, and called EMS, not once but twice. The second call, necessitated a trip into the hospital, because of shortness of breath. The patient was seen today in the emergency department. He is on BiPAP. He is also on Zosyn, and saline at 20 cc an hour. Labs, x- rays, and medications are reviewed. The patient should be discharged to rehab facility or prison, when he is discharged again, as he is unable to maintain himself at home. Dictation was produced using en-Gaugeation software. Please excuse any grammatical, word or spelling errors. Plan dated December 08, 2024. The patient was seen in consultation yesterday in the emergency department. He was quite lethargic and somnolent, and was on BiPAP. We mostly spoke to his son, who was concerned that his father could not take care of himself at home, and recommended discharge to a rehab facility, or prison. The patient was to be receiving Zosyn every 8 hours, but apparently could not do that by himself. He was under the impression that he would have a visiting nurse come out there every 8 hours, to do the antibiotic administration. Currently, he is awake and alert. He is sitting at the side of the bed. He is on 4 L of oxygen. Saline at 20 cc an hour. He did use the BiPAP last night. Labs, x-rays, medications are reviewed. Prognosis is guarded. Dictation was produced using Dragon dictation software. Please excuse any grammatical, word or spelling er rors. Time with Patient: Less than 30
--- NOTE | 2024-12-08 15:00 | P.PN ---
Progress Note - Text Progress Note Date: 12/08/24 Chief Complaint: Short of breath 69-year-old male with past medical history of CHF, CAD with previous PCI, CVA, HTN, HLD, lymphedema, morbid obesity, chronic hypoxic respiratory failure on home oxygen, COPD, NARCISO, tobacco use disorder, has a colostomy with end up parastomal hernia. Patient just in the hospital from November 25 through December 03. Was admitted with COPD exacerbation. Also cellulitis lower extremity and decubitus ulcer of the left heel. Debridement was carried out by Dr. Rueda. He will cultures grew multiple organisms including Enterococcus faecalis, Pseudomonas aeruginosa. Patient was seen by Dr. Frias from [place]. Patient was discharged on IV Zosyn. And a midline. Patient presented to the ER for shortness of breath. Placed on BiPAP. Patient's son at the bedside. Patient is having trouble getting the IV Zosyn. He could smell cigarette smoke in the house. Patient is currently on a BiPAP and still not able to give much of history. December 07: Saw the patient overflow in the ER. Still lethargic/encephalopathic but arousable. Placed back on BiPAP. December 08: Up in recliner. Out of encephalopathy. Holding a conversation. Down to 4 L nasal cannula. 100%. Getting IV Zosyn. Active Medications Albuterol/Ipratropium (Ipratropium-Albuterol 3 Ml Neb) 3 ml INHALATION RT-Q4H [facility] Last Admin: 12/08/24 13:14 Dose: 3 ml Amiodarone HCl (Amiodarone 200 Mg Tab) 200 mg PO DAILY [facility] Last Admin: 12/08/24 09:35 Dose: 200 mg Apixaban (Apixaban 5 Mg Tab) 5 mg PO BID [facility]; Protocol Last Admin: 12/08/24 09:34 Dose: 5 mg Aspirin (Aspirin 81 Mg) 81 mg PO DAILY [facility] Last Admin: 12/08/24 09:35 Dose: 81 mg Atorvastatin Calcium (Atorvastatin 40 Mg Tab) 40 mg PO HS [facility] Last Admin: 12/07/24 22:16 Dose: 40 mg Budesonide (Budesonide 1 Mg/2 Ml Nebu) 1 mg INHALATION RT-BID [facility] Last Admin: 12/08/24 09:54 Dose: 1 mg Clopidogrel Bisulfate (Clopidogrel 75 Mg Tab) 75 mg PO DAILY [facility] Last Admin: 12/08/24 09:34 Dose: 75 mg Clotrimazole (Clotrimazole 1% Cream 30 Gm Tube) 1 applic TOPICAL BID [facility] Last Admin: 12/08/24 04:16 Dose: Not Given Diclofenac Sodium (Diclofenac Sodium Gel 100 Gm Tube) 2 gm TOPICAL QID PRN; Protocol PRN Reason: pain Diltiazem HCl (Diltiazem Oral 60 Mg Tab) 60 mg PO Q8H [facility] Last Admin: 12/08/24 09:34 Dose: 60 mg Formoterol Fumarate (Formoterol Fumarate 20 Mcg/2 Ml Nebu) 20 mcg INHALATION RT-BID [facility] Last Admin: 12/08/24 09:54 Dose: 20 mcg Furosemide (Furosemide 40 Mg Tab) 40 mg PO BID [facility] Last Admin: 12/08/24 09:35 Dose: 40 mg Sodium Chloride (Saline 0.9%) 1,000 mls @ 20 mls/hr IV .Q24H [facility] Last Admin: 12/07/24 15:21 Dose: 20 mls/hr Isosorbide Mononitrate (Isosorbide Mononitrate Er 30 Mg Tab.Er.24h) 30 mg PO PC-LUNCH [facility] Last Admin: 12/08/24 14:53 Dose: 30 mg Losartan Potassium (Losartan 25 Mg Tab) 25 mg PO HS [facility] Last Admin: 12/07/24 22:16 Dose: 25 mg Methylprednisolone Sodium Succinate (Methylprednisolone Sod Succi 40 Mg/Ml 1 Ml Vial) 40 mg IV Q8H [facility] Last Admin: 12/08/24 12:13 Dose: 40 mg Metoprolol Tartrate (Metoprolol Tartrate 25 Mg Tab) 25 mg PO TID [facility] Last Admin: 12/08/24 09:34 Dose: 25 mg Naloxone HCl (Naloxone 0.4 Mg/Ml 1 Ml Vial) 0.2 mg IV Q2M PRN PRN Reason: Opioid Reversal Nicotine (Nicotine 14mg/24hr Patch) 1 patch TRANSDERM DAILY [facility] Last Admin: 12/08/24 09:40 Dose: Not Given Oxycodone/Acetaminophen (Oxycodone-Apap 10-325mg 1 Each Tab) 1 each PO Q6HR PRN PRN Reason: Pain Last Admin: 12/08/24 14:54 Dose: 1 each Pantoprazole Sodium (Pantoprazole 40 Mg Tablet) 40 mg PO AC-BRKFST [facility] Last Admin: 12/08/24 06:44 Dose: 40 mg Piperacillin Sod/Tazobactam Sod (Piperacillin-Tazobactam 3.375 Gm Vial) 3.375 gm IVPB Q8HR [facility]; Protocol Last Admin: 12/08/24 09:36 Dose: 3.375 gm Senna/Docusate Sodium (Sennosides-Docusate Sodium 1 Each Tab) 1 each PO BID [facility] Last Admin: 12/08/24 09:34 Dose: 1 each Silver Sulfadiazine (Silver Sulfadiazine 1% Cream 25 Gm Tube) 1 applic TOPICAL DAILY PRN; Protocol PRN Reason: LEGS Last Admin: 12/08/24 09:36 Dose: 1 applic Tamsulosin HCl (Tamsulosin 0.4 Mg Cap.Er.24h) 0.4 mg PO DAILY [facility] Last Admin: 12/08/24 09:34 Dose: 0.4 mg Past medical history: COPD in an ex-smoker, CHF from diastolic 50-55%, obesity hypoventilation syndrome, coronary artery disease with stent, hyperlipidemia, hypertension, AICD, chronic low back pain L2 to L5 as chronic fractures, morbid obesity, home oxygen 2 L, and right rotator cuff. Social history: Lives alone . Smokes about half a pack a day, since 1969.. No alcohol. Physical examination: VITAL SIGNS: 98.4, 89, 14, 121 x 70, 100% 4 L GENERAL: Up in recliner for more awake EYES: Pupils equal. Conjunctiva normal. HEENT: External appearance of nose and ears normal, oral cavity grossly normal. NECK: JVD unable to assess; masses not palpable. HEART: Heart sounds muffled, edema. LUNGS: Respiratory rate increased, decreased breath sound. Accessory muscles working. Unable to speak sentences. EXTREMITY: Edema. Chronic venous stasis changes with pigmentation. Dressing over the left leg. ABDOMEN: Soft, nontender, colostomy, with parastomal hernia, liver spleen not palpable. PSYCH: X 3, mood affect a bit tired INVESTIGATIONS, reviewed in the clinical context: December 06, 2024: White count 10 hemoglobin 10.3 platelets 159 potassium 4.1 bicarb 50 BUN 24 creatinine 0.77 Venous blood gases show pH of 7.3PCO2 greater than 98 Assessment and plan: - Acute on chronic exacerbation of hypoxic and hypercapnic respiratory failure secondary underlying COPD, and a current smoker: Better BiPAP now off. 4 L nasal cannula Pulmonary following -Acute left heel decubitus ulcer November 29 underwent deep wound debridement by Dr. Rueda. Deep wound culture- multiple organisms On IV Zosyn per ID. Was discharged for 2 weeks of IV Zosyn per ID Consult Dr. Rueda and ID. -Acute COPD exacerbation with current smoker: There DuoNeb every 4. Nebulized Perforomist and Pulmicort.. IV Solu-Medrol, decrease to every 12 -Chronic bilateral lower, venous insufficiency and possibly lymphedema, with deep pigmentation - Persistent atrial fibrillation. Rate controlled. Eliquis. Cardizem. Lopressor. -Chronic nicotine dependence, cigarette smoker Nicotine patch - peripheral neuropathy -Colostomy bag, with parastomal hernia Patient to follow-up with his surgeon outpatient -Chronic congestive heart failure from diastolic dysfunction EF 50-55%: Stable Lasix. -Obesity hypoventilation syndrome -Coronary artery disease with stent Aspirin Lopressor -Hyperlipidemia Lipitor -Essential hypertension Cardizem. Lopressor. -AICD - BPH Flomax - GERD Protonix -Chronic low back pain from L2 to L5 osteoarthritis with chronic fractures -Morbid obesity BMI 59.9 Weight loss measures -Chronic hypoxic respiratory failure , secondary to underlying COPD on 2 L oxygen at home -Chronic medical debility uses a motorized wheelchair -Full code 4 L nasal cannula. Decrease Solu-Medrol. Discussed with patient. Other medication to continue. Past Medical History Past Medical History: Coronary Artery Disease (CAD), Chest Pain / Angina, COPD, CVA/TIA, Hyperlipidemia, Hypertension, Myocardial Infarction (MD), Osteoarthritis (OA), Respiratory Disorder, Sleep Apnea/CPAP/BIPAP Additional Past Medical History / Comment(s): obesity, obesity hypoventilation syndrome, suspected CHF and cor pulmonale, previous history of defibrillator placement, CVA in 2004, chronic back pain secondary to DDD and spinal canal stenosis, history of vertebral fracture L2 through L5, chronic lower extremity edema, diverticular disease, L knee fx in past and torn R rotator cuff, cellulitis, hospitalization for gallbladder complications Last Myocardial Infarction Date:: 2011 History of Any Multi-Drug Resistant Organisms: None Reported Past Surgical History: Bowel Resection, Cholecystectomy, Heart Catheterization With Stent, Hernia Repair, Pacemaker Additional Past Surgical History / Comment(s): PTCA with stent (4 total), 04/05/13 [employer] pacemaker, umbilical hernia repair, colonoscopy, circumcision, R eye surgery for strabismus, gallbladder stents One removed from HF on 03/19, Colostomy with open wounds. Past Anesthesia/Blood Transfusion Reactions: No Reported Reaction Date of Last Stent Placement:: 2012 Type of Cardiac Device: Permanent Pacemaker Device Placement Date:: 04/05/13 Past Psychological History: No Psychological Hx Reported Smoking Status: Current some day smoker Past Alcohol Use History: None Reported Past Drug Use History: None Reported
--- NOTE | 2024-12-08 15:35 | P.CONS ---
History of Present Illness - Reason for Consult Consult date: 12/07/24 wound infection Requesting physician: Stevo Winn - Chief Complaint Unable to infuse his antibiotic or take care of the wound x 2 days - History of Present Illness Patient is a 69-year-old male with a past medical history significant for Coronary Artery Disease (CAD), Chest Pain / Angina, COPD, CVA/TIA, Hyperlipidemia, Hypertension, Myocardial Infarction (RI), Osteoarthritis (OA), Respiratory Disorder, Sleep Apnea/CPAP/BIPAP recent mission to the hospital with multiple symptoms also have a wound to the left heel area that was debrided by podiatry and there was a pocket of pus culture subsequently grew Enterococcus faecalis and Pseudomonas aeruginosa for the patient had a midline and was advised to the course of IV Zosyn patient however was not able to infuse his antibiotic or take care of his wound for the patient came back to the hospital. Patient denies having any fever or any chills patient is currently breathing comfortably on nasal cannula oxygen denies having any chest pain or shortness of breath occasional cough no abdominal pain P denies any worsening pain to the left heel wound area only foul-smelling drainage denies any problem with the midline on presentation to the hospital patient was afebrile and no fever have recorded subsequently patient was not tachycardic or hypotensive he was mildly hypoxic currently on 4 L nasal cannula oxygen patient did have white count of 10,000 with a left shift creatinine 0.77 level of 80 mild elevated 66 influenza RSV COVID testing was negative patient did have a chest x-ray cardiomegaly with trace bilateral effusion no pulmonary vascular congestion patient was started on Zosyn infectious disease was consulted for further management of antibiotic therapy Review of Systems Positive point and negatives has been mentioned in the HPI, complete review of systems was performed and all other systems are negative Past Medical History Past Medical History: Coronary Artery Disease (CAD), Chest Pain / Angina, COPD, CVA/TIA, Hyperlipidemia, Hypertension, Myocardial Infarction (RI), Osteoarthritis (OA), Respiratory Disorder, Sleep Apnea/CPAP/BIPAP Additional Past Medical History / Comment(s): obesity, obesity hypoventilation syndrome, suspected CHF and cor pulmonale, previous history of defibrillator placement, CVA in 2004, chronic back pain secondary to DDD and spinal canal stenosis, history of vertebral fracture L2 through L5, chronic lower extremity edema, diverticular disease, L knee fx in past and torn R rotator cuff, cellulitis, hospitalization for gallbladder complications Last Myocardial Infarction Date:: 2011 History of Any Multi-Drug Resistant Organisms: None Reported Past Surgical History: Bowel Resection, Cholecystectomy, Heart Catheterization With Stent, Hernia Repair, Pacemaker Additional Past Surgical History / Comment(s): PTCA with stent (4 total), 04/05/13 [employer] pacemaker, 1989' umbilical hernia repair, colonoscopy, circumcision, R eye surgery for strabismus, gallbladder stents One removed from HF on 03/19, Colostomy with open wounds. Past Anesthesia/Blood Transfusion Reactions: No Reported Reaction Date of Last Stent Placement:: 2012 Type of Cardiac Device: Permanent Pacemaker Device Placement Date:: 04/05/13 Past Psychological History: No Psychological Hx Reported Smoking Status: Current some day smoker Past Alcohol Use History: None Reported Past Drug Use History: None Reported - Past Family History Father Family Medical History: Musculoskeletal Disorder, Neurologic Disorder Additional Family Medical History / Comment(s): Father had parkinson's dx and at age 84 yrs. Mother Family Medical History: Myocardial Infarction (RI) Additional Family Medical History / Comment(s): Mother had 3 vessel CABG. She of a massive RI at the age of 53 yrs. Medications and Allergies Home Medications Medication Instructions Recorded Confirmed Type Clopidogrel [Plavix] 75 mg PO DAILY 03/20/19 12/06/24 History Sennosides/Docusate Sodium [Senna 1 tab PO BID 02/07/23 12/06/24 History Plus 8.6-50 mg Tablet] oxyCODONE HCL/ACETAMINOPHEN 1 tab PO Q6HR PRN 02/07/23 12/06/24 History [Percocet 10-325 mg] Budesonide/Formoterol Fumarate 2 puff INHALATION RT-BID 03/03/23 12/06/24 History [Symbicort 80-4.5 Mcg Inhaler] Ipratropium-Albuterol Nebulize 3 ml INHALATION RT-QID 03/03/23 12/06/24 History [Duoneb 0.5 mg-3 mg/3 ml Soln] Diclofenac Sodium Gel [Voltaren 1% 2 gm TOPICAL QID PRN gm 03/07/23 12/06/24 Rx Gel] SILVER sulfADIAZINE CREAM 1 applic TOPICAL DAILY PRN 03/23/23 12/06/24 History [Silvadene Cream] Apixaban [Eliquis] 5 mg PO BID 11/25/24 12/06/24 History Aspirin EC [Ecotrin Low Dose] 81 mg PO DAILY 11/25/24 12/06/24 History Atorvastatin [Lipitor] 40 mg PO HS 11/25/24 12/06/24 History Ciclopirox Olamine Cream [Ciclodan] 1 applic TOPICAL BID 11/25/24 12/06/24 History Isosorbide Mononitrate ER [Imdur] 30 mg PO PC-LUNCH 11/25/24 12/06/24 History Losartan [Cozaar] 25 mg PO HS 11/25/24 12/06/24 History Metoprolol Tartrate [Lopressor] 25 mg PO TID 11/25/24 12/06/24 History Pantoprazole Sodium [Protonix] 40 mg PO AC-BRKFST 11/25/24 12/06/24 History Tamsulosin [Flomax] 0.4 mg PO DAILY 11/25/24 12/06/24 History dilTIAZem HCL 60 mg PO Q8H 11/25/24 12/06/24 History Amiodarone [Cordarone] 200 mg PO DAILY #0 12/03/24 12/06/24 Rx Furosemide [Lasix] 40 mg PO BID #0 12/03/24 12/06/24 Rx Nicotine 14Mg/24Hr Patch [Habitrol] 1 patch TRANSDERM DAILY #30 patch 12/03/24 12/06/24 Rx Piperacillin-Tazobactam [Zosyn] 4.5 gm IVPB Q8HR #42 each 12/03/24 12/06/24 Rx predniSONE See Taper PO DIRECTED 12/06/24 12/06/24 History Allergies Allergy/AdvReac Type Severity Reaction Status Date / Time No Known Allergies Allergy Verified 11/25/24 12:46 Physical Exam Vitals: Vital Signs Temp Pulse Resp BP Pulse Ox FiO2 12/07/24 10:49 35 12/07/24 09:00 104 H 12/07/24 08:47 102 H 12/07/24 08:39 104 H 98 35 12/07/24 08:35 35 12/07/24 07:00 83 20 105/67 98 12/07/24 05:59 98.7 F 76 14 114/68 97 12/07/24 04:29 82 13 112/67 96 12/07/24 04:13 97 16 12/07/24 04:07 101 H 17 35 12/07/24 01:41 81 16 131/94 94 L 12/06/24 23:40 76 16 12/06/24 23:31 76 16 35 12/06/24 22:00 74 15 120/67 95 12/06/24 21:24 98.1 F 70 16 113/68 96 12/06/24 20:09 88 15 122/78 95 12/06/24 19:30 86 14 129/74 94 L 12/06/24 18:44 35 12/06/24 17:46 86 15 111/88 96 12/06/24 16:22 75 15 97/69 96 12/06/24 16:08 79 14 88/31 95 12/06/24 15:28 16 12/06/24 14:40 35 12/06/24 13:00 50 12/06/24 12:46 98.0 F 77 22 113/56 96 12/06/24 12:45 50 Intake and Output 12/06/24 12/07/24 12/07/24 22:59 06:59 14:59 Other: Voiding Method Urinal GENERAL DESCRIPTION: Elderly male lying in bed, no distress. No tachypnea or accessory muscle of respiration use. HEENT: Shows Pallor , no scleral icterus. Oral mucous membrane is dry. NECK: Trachea central, no thyromegaly. LUNGS: Unlabored breathing. Decreased breath sound the bases HEART: S1, S2, regular rate and rhythm. No loud murmur ABDOMEN: Soft, no tenderness , guarding or rigidity, no organomegaly EXTREMITIES: Left heel with stage III pressure ulcer some slough tissue no surrounding redness or drainage SKIN: No rash, no masses palpable. NEUROLOGICAL: The patient is awake, alert, oriented x3, mood and affect normal. Results CBC & Chem 7: 12/06/24 13:18 12/06/24 13:18 Labs: Abnormal Lab Results - Last 24 Hours (Table) 12/06/24 12/06/24 12/06/24 Range/Units 13:18 13:18 13:18 RBC 3.42 L (4.40-5.60) 10*6/uL Hgb 10.3 L (13.0-17.0) g/dL Hct 34.1 L (39.6-50.0) % MCV 99.7 H (80.0-97.0) fL MCHC 30.2 L (32.0-37.0) g/dL Immature Gran # 0.09 H (0.00-0.04) 10*3/uL VBG pH (7.31-7.41) VBG pCO2 (37-51) mmHg Chloride 84 L (98-107) mmol/L Carbon Dioxide 50 H* (22-30) mmol/L BUN 24 H (9-20) mg/dL Glucose 106 H (74-99) mg/dL Plasma Lactic Acid Hernán 0.6 L (0.7-2.0) mmol/L ALT 66 H (4-49) U/L Total Protein 5.4 L (6.3-8.2) g/dL Albumin 2.9 L (3.5-5.0) g/dL 12/06/24 Range/Units 14:23 RBC (4.40-5.60) 10*6/uL Hgb (13.0-17.0) g/dL Hct (39.6-50.0) % MCV (80.0-97.0) fL MCHC (32.0-37.0) g/dL Immature Gran # (0.00-0.04) 10*3/uL VBG pH 7.30 L (7.31-7.41) VBG pCO2 >98 H* (37-51) mmHg Chloride (98-107) mmol/L Carbon Dioxide (22-30) mmol/L BUN (9-20) mg/dL Glucose (74-99) mg/dL Plasma Lactic Acid Hernán (0.7-2.0) mmol/L ALT (4-49) U/L Total Protein (6.3-8.2) g/dL Albumin (3.5-5.0) g/dL Assessment and Plan (1) Decubitus ulcer of left heel, stage 3 Current Visit: Yes Status: Acute Code(s): L89.623 - PRESSURE ULCER OF LEFT HEEL, STAGE 3 SNOMED Code(s): 80946602773306 (2) Pseudomonas aeruginosa infection Current Visit: Yes Status: Acute Code(s): A49.8 - OTHER BACTERIAL INFECTIONS OF UNSPECIFIED SITE SNOMED Code(s): 50940409 (3) Infected wound Current Visit: No Status: Acute Code(s): T14.8XXA - OTHER INJURY OF UNSPECIFIED BODY REGION, INITIAL ENCOUNTER; L08.9 - LOCAL INFECTION OF THE SKIN AND SUBCUTANEOUS TISSUE, UNSP SNOMED Code(s): 37464209 Plan: 1patient with left heel stage III infected pressure ulcer in this patient who is status post surgical debridement of the wound on his last admission and deep culture positive for Enterococcus and Pseudomonas aeruginosa now being readmitted because of unable to care for himself at home 2patient will be treated with Zosyn 3.37 g every 8hr and monitor clinical course closely 3local wound care with Medihoney followed by moist dressing change daily We will follow on clinical condition and cultures to further adjust medication if needed Thank you for this consultation we will follow the patient along with you Dictation was produced using [employer] dictation software. please excuse any grammatical, word or spelling errors. Time with Patient: Greater than 30
--- NOTE | 2024-12-08 15:38 | P.PN ---
Subjective Progress Note Date: 12/08/24 Principal diagnosis: Reason for follow-up is left heel infected wound Patient is a 69-year-old male with multiple comorbidity did have an infected left heel pressure ulcer with a culture positive for Pseudomonas and Enterococcus faecalis being readmitted to hospital because of unable to take care of his wound or diffuse antibiotic. On today's evaluation that is 12/09/2023, patient did have a temperature of 98.4 F this afternoon and denies having any chills, patient is on 4 L nasal cannula oxygen and denies any chest pain or cough no abdominal pain or diarrhea. No new lab has been obtained today Objective - Vital Signs Vital signs: Vital Signs Temp 98.4 F 12/08/24 12:10 Pulse 78 12/08/24 13:27 Resp 14 12/08/24 12:10 BP 121/70 12/08/24 12:10 Pulse Ox 100 12/08/24 12:10 FiO2 35 12/08/24 01:04 Intake & Output 12/07/24 12/08/24 12/08/24 18:59 06:59 18:59 Intake Total 118 1080 558 Output Total 350 1450 825 Balance -232 -218 -267 Weight 154.221 kg Intake: Oral 118 1080 558 Output: Urine 300 1450 725 Stool 50 100 Other: Voiding Method Urinal Urinal - Exam GENERAL DESCRIPTION: An elderly male lying in bed in no distress RESPIRATORY SYSTEM: Unlabored breathing , decreased breath sounds at bases HEART: S1 S2 regular rate and rhythm , ABDOMEN: Soft , no tenderness EXTREMITIES: Left heel wound is currently dressed - Labs CBC & Chem 7: 12/06/24 13:18 12/06/24 13:18 Assessment and Plan (1) Decubitus ulcer of left heel, stage 3 Current Visit: Yes Status: Acute Code(s): L89.623 - PRESSURE ULCER OF LEFT HEEL, STAGE 3 SNOMED Code(s): 01679400119171 (2) Pseudomonas aeruginosa infection Current Visit: Yes Status: Acute Code(s): A49.8 - OTHER BACTERIAL INFECTIONS OF UNSPECIFIED SITE SNOMED Code(s): 87718867 (3) Infected wound Current Visit: No Status: Acute Code(s): T14.8XXA - OTHER INJURY OF UNSPECIFIED BODY REGION, INITIAL ENCOUNTER; L08.9 - LOCAL INFECTION OF THE SKIN AND SUBCUTANEOUS TISSUE, UNSP SNOMED Code(s): 61819468 Plan: 1patient with left heel stage III infected pressure ulcer in this patient who is status post surgical debridement of the wound on his last admission and deep culture positive for Enterococcus and Pseudomonas aeruginosa now being readmitted because of unable to care for himself at home 2patient to continuelocal wound care with Medihoney followed by moist dressing change daily 3patient is currently being treated Zosyn 3.37 g every 8 hours, plan is for 2-3 course of therapy depending upon clinical response Dictation was produced using [employer] dictation software. please excuse any grammatical, word or spelling errors. Time with Patient: Less than 30
[2024-12-08] MEDS: methylPREDNISolone SOD SUCCI 40 MG/ML 1 ML VIAL IV SCH (21:37)
[2024-12-09 07:13] LABS: Basophils # (A) 0.02 10*3/uL (0.00-0.10); Basophils % (A) 0.2 %; Eosinophils # (A) 0.00 10*3/uL (0.04-0.35); Eosinophils % (A) 0.0 %; HCT 34.2 % (39.6-50.0); HGB 10.6 g/dL (13.0-17.0); Lymphocytes # (A) 0.89 10*3/uL (0.90-5.00); Lymphocytes % (A) 6.9 %; MCH 30.0 pg (27.0-32.0); MCHC 31.0 g/dL (32.0-37.0); MCV 96.9 fL (80.0-97.0); Monocytes # (A) 0.46 10*3/uL (0.20-1.00); Monocytes % (A) 3.6 %; Neutrophils # (A) 11.41 10*3/uL (1.80-7.70); Neutrophils % (A) 88.7 %; Platelet Count 179 10*3/uL (140-440); RBC 3.53 10*6/uL (4.40-5.60); RDW 14.4 % (11.5-14.5); WBC 12.86 10*3/uL (4.50-10.00)
[2024-12-09 07:38] LABS: ALT 35 U/L (4-49); AST 17 U/L (17-59); African American GFR (CKD) >90 (>60 ml/min/1.73 sqM); Albumin 2.8 g/dL (3.5-5.0); Alkaline Phosphatase 63 U/L (38-126); Anion Gap 6 mmol/L; Blood Urea Nitrogen 25 mg/dL (9-20); Calcium 9.0 mg/dL (8.4-10.2); Chloride 91 mmol/L (98-107); Glucose 143 mg/dL (74-99); Non-African American GFR(CKD) 82 (>60 ml/min/1.73 sqM); Potassium 4.5 mmol/L (3.5-5.1); Sodium 137 mmol/L (137-145); Total Protein 5.2 g/dL (6.3-8.2)
[2024-12-09] MEDS: IPRATROPIUM-ALBUTEROL 3 ML NEB INHALATION SCH (08:43)
[2024-12-09 08:46] LABS: Carbon Dioxide 40 mmol/L (22-30)
--- NOTE | 2024-12-09 11:07 | P.PN ---
Subjective Progress Note Date: 12/09/24 Principal diagnosis: Cellulitis. Pulmonary consult dated December 07, 2024. 69-year-old male well-known to our service. The patient was seen in the emergency department, on December 06, 2024. He apparently came in there with complaints of upper respiratory tract infection, difficulty in breathing. According to the patient's son, the main reason that he came in was because he was expected to give himself antibiotics for his recent infection, 3 times a day, and apparently could not do that. He thought a visiting nurse was going to be coming to the house 3 times a day, to do the infusion for him. In addition, the patient complained of shortness of breath, which necessitated a call to EMS. That was not the first call. The patient was found to be dyspneic, placed on oxygen, and brought to the emergency room, for further management, and monitoring. The patient is seen today in room 23, in the emergency department. His son is at the bedside. He is currently on BiPAP, with settings of 14/6, and 35%. He is getting Zosyn IV. He is also on saline at 20 cc an hour. He has a recent left heel infection, caused by both Pseudomonas and Enterococcus. He was discharged from the hospital recently on December 03, and readmitted on December 06. Current labs include a white count of 10, hemoglobin 10.3, hematocrit 34.1, and a normal platelet count. Venous blood gases showed a PCO2 of greater than 98, and a pH is 7.3. Sodium 137, potassium 4.1, chlorides 84, CO2 50, anion gap 3, BUN 24, and creatinine 0.77. Glucose was 106. Lactic acid was 0.6. Viral screen was negative. Chest x-ray shows cardiomegaly, with bilateral pleural effusions. There was no overt pulmonary vascular congestion. Progress note dated December 08, 2024. 69-year-old male seen yesterday in consultation. Please see my note above. He was seen in the emergency department. He is seen today in room 371. He is sitting in a chair, next to the hospital bed. He is getting saline at 20 cc an hour, nasal cannula 4 L. He did wear the BiPAP last night, for a number of hours, with settings of 14/6, 35%. No new labs today. The previous labs have been reviewed. The patient was previously discharged on Zosyn, for a left heel infection. He apparently could not administer the medication at home, so he came into the emergency room to be evaluated. Talking to his son yesterday, the patient would likely be discharged to some sort of rehab facility or [place] [facility], where he can have some help with his antibiotics. Progress note dated December 09, 2024. 69-year-old male seen today in room 371. He is sitting in a chair next to the hospital bed. He is comfortable, on 4 L. He is getting saline at 20 cc an hour. He did use the BiPAP throughout the night according to the nurse, with settings of 14/6, 35%. The patient has no new complaints today. He feels well. White count is 12.9, hemoglobin 10.6, hematocrit 34.2, and platelet count is normal. The patient had a venous blood gas, December 06, at that time, his CO2 was 98, and his pH was 7.30. Sodium 137, potassium 4.5, chloride 91, CO2 40, BUN 25, creatinine 0.96. Glucose is 143. Albumin is 2.8. Viral screen was negative. Objective - Vital Signs Vital signs: Vital Signs Temp 97.6 F 12/09/24 09:13 Pulse 103 H 12/09/24 09:13 Resp 14 12/09/24 09:13 BP 118/75 12/09/24 09:13 Pulse Ox 97 12/09/24 09:13 FiO2 35 12/08/24 01:04 Intake & Output 12/08/24 12/09/24 12/09/24 18:59 06:59 18:59 Intake Total 798 180 Output Total 825 400 Balance -27 -400 180 Weight 154.221 kg Intake: Oral 798 180 Output: Urine 725 400 Stool 100 Other: Voiding Method Urinal Urinal - Exam No acute distress, awake and alert, sitting in the chair next to the hospital bed, on 4 L. HEENT examination is grossly unremarkable. Neck supple. Full range of motion. No adenopathy thyromegaly or neck vein distention. Cardiovascular examination reveals regular rhythm rate. S1-S2 normal. No S3 or S4. No discernible murmur noted. Heart sounds are distant. Lungs reveal minimal scattered rhonchi. No wheezes. No crackles. Breath sounds equal bilaterally. Abdomen obese, without bowel sounds. No masses or tenderness. Extremities reveal significant edema, and cellulitis, with chronic venous stasis changes. Skin reveals chronic changes particular in the lower extremities. Neurologic examination is brief, but nonfocal. - Labs CBC & Chem 7: 12/09/24 06:36 12/09/24 06:36 Labs: Abnormal Lab Results - Last 24 Hours (Table) 12/09/24 12/09/24 Range/Units 06:36 06:36 WBC 12.86 H (4.50-10.00) 10*3/uL RBC 3.53 L (4.40-5.60) 10*6/uL Hgb 10.6 L (13.0-17.0) g/dL Hct 34.2 L (39.6-50.0) % MCHC 31.0 L (32.0-37.0) g/dL Immature Gran # 0.08 H (0.00-0.04) 10*3/uL Neutrophils # 11.41 H (1.80-7.70) 10*3/uL Lymphocytes # 0.89 L (0.90-5.00) 10*3/uL Eosinophils # 0.00 L (0.04-0.35) 10*3/uL Chloride 91 L (98-107) mmol/L Carbon Dioxide 40 H (22-30) mmol/L BUN 25 H (9-20) mg/dL Glucose 143 H (74-99) mg/dL Total Protein 5.2 L (6.3-8.2) g/dL Albumin 2.8 L (3.5-5.0) g/dL Assessment and Plan Assessment: Acute on chronic shortness of breath, secondary to COPD exacerbation. The patient is currently maintained on BiPAP. Chronic left heel infection, secondary to Pseudomonas and Enterococcus, currently on Zosyn. Morbid obesity, with a BMI of 46.1 kg/m. Chronic hypoxemic respiratory failure, multifactorial, part related to COPD, obstructive sleep apnea syndrome, and possible pickwickian syndrome. History of obstructive sleep apnea syndrome. History of chronic tobacco use. Coronary artery disease with previous PCI. Ischemic cardiomyopathy, status post AICD placement. History of CVA. History of hypertension. History of hyperlipidemia. Chronic lower extremity lymphedema and chronic venous stasis changes with hyperpigmentation. History of bowel resection, with diverting colostomy. Degenerative disc disease. History of diverticular disease. Peripheral neuropathy. Chronic medical debility, with multiple hospital admissions. Plan: Plan dated December 07, 2024. The patient is seen in the emergency department, room 23. His son is at the bedside. The patient is currently on BiPAP. The patient was discharged recently on December 03, and readmitted on December 06. Apparently according to the son, the patient went home with the understanding that he would be a visiting nurse coming to the house 3 times a day, to infuse his Zosyn. The patient apparently got frustrated with not having any help with the Zosyn, and called EMS, not once but twice. The second call, necessitated a trip into the hospital, because of shortness of breath. The patient was seen today in the emergency department. He is on BiPAP. He is also on Zosyn, and saline at 20 cc an hour. Labs, x- rays, and medications are reviewed. The patient should be discharged to rehab facility or [place] [facility], when he is discharged again, as he is unable to maintain himself at home. Dictation was produced using [employer] software. Please excuse any grammatical, word or spelling errors. Plan dated December 08, 2024. The patient was seen in consultation yesterday in the emergency department. He was quite lethargic and somnolent, and was on BiPAP. We mostly spoke to his son, who was concerned that his father could not take care of himself at home, and recommended discharge to a rehab facility, or [place] [facility]. The patient was to be receiving Zosyn every 8 hours, but apparently could not do that by himself. He was under the impression that he would have a visiting nurse come out there every 8 hours, to do the antibiotic administration. Currently, he is awake and alert. He is sitting at the side of the bed. He is on 4 L of oxygen. Saline at 20 cc an hour. He did use the BiPAP last night. Labs, x-rays, medications are reviewed. Prognosis is guarded. Dictation was produced using [employer] software. Please excuse any grammatical, word or spelling errors. Plan dated December 09, 2024. The patient was seen in consultation 2 days ago. He was initially seen in the emergency department. Initially, he was very lethargic and somnolent, from hypercapnic respiratory failure. Currently he is doing much better. He is sitting in the chair next to the hospital bed. He is on 4 L. He did use BiPAP throughout the night, with settings of 14/6, 35%. The patient is getting saline at 20 cc an hour. All labs, x-rays, and medications are reviewed. We will continue to follow make recommendations along the way. Prognosis is guarded. Dictation was produced using [employer] dictation software. Please excuse any grammatical, word or spelling errors. Time with Patient: Less than 30
--- NOTE | 2024-12-09 14:55 | P.PN ---
Subjective Progress Note Date: 12/09/24 Principal diagnosis: Reason for follow-up is left heel infected wound Patient is a 69-year-old male with multiple comorbidity did have an infected left heel pressure ulcer with a culture positive for Pseudomonas and Enterococcus faecalis being readmitted to hospital because of unable to take care of his wound or diffuse antibiotic. On today's evaluation that is 12/09/2024, Patient is afebrile patient is currently on 4 L goal oxygen and denies having any shortness of breath, the patient denies any chest pain or cough, the patient denies any nausea vomiting did not have any abdominal pain and no diarrhea. Patient white count slightly up to 12.86 today, creatinine 0.96 Objective - Vital Signs Vital signs: Vital Signs Temp 98.4 F 12/09/24 11:53 Pulse 88 12/09/24 12:26 Resp 14 12/09/24 11:53 BP 115/61 12/09/24 11:53 Pulse Ox 97 12/09/24 11:53 FiO2 35 12/08/24 01:04 Intake & Output 12/08/24 12/09/24 12/09/24 18:59 06:59 18:59 Intake Total 798 360 Output Total 825 400 250 Balance -27 -400 110 Weight 154.221 kg Intake: Oral 798 360 Output: Urine 725 400 250 Stool 100 Other: Voiding Method Urinal Urinal Urinal - Exam GENERAL DESCRIPTION: An elderly male lying in bed in no distress RESPIRATORY SYSTEM: Unlabored breathing , decreased breath sounds at bases HEART: S1 S2 regular rate and rhythm , ABDOMEN: Soft , no tenderness EXTREMITIES: Left heel wound is currently dressed - Labs CBC & Chem 7: 12/09/24 06:36 12/09/24 06:36 Labs: Abnormal Lab Results - Last 24 Hours (Table) 12/09/24 12/09/24 Range/Units 06:36 06:36 WBC 12.86 H (4.50-10.00) 10*3/uL RBC 3.53 L (4.40-5.60) 10*6/uL Hgb 10.6 L (13.0-17.0) g/dL Hct 34.2 L (39.6-50.0) % MCHC 31.0 L (32.0-37.0) g/dL Immature Gran # 0.08 H (0.00-0.04) 10*3/uL Neutrophils # 11.41 H (1.80-7.70) 10*3/uL Lymphocytes # 0.89 L (0.90-5.00) 10*3/uL Eosinophils # 0.00 L (0.04-0.35) 10*3/uL Chloride 91 L (98-107) mmol/L Carbon Dioxide 40 H (22-30) mmol/L BUN 25 H (9-20) mg/dL Glucose 143 H (74-99) mg/dL Total Protein 5.2 L (6.3-8.2) g/dL Albumin 2.8 L (3.5-5.0) g/dL Assessment and Plan (1) Decubitus ulcer of left heel, stage 3 Current Visit: Yes Status: Acute Code(s): L89.623 - PRESSURE ULCER OF LEFT HEEL, STAGE 3 SNOMED Code(s): 97330311928129 (2) Pseudomonas aeruginosa infection Current Visit: Yes Status: Acute Code(s): A49.8 - OTHER BACTERIAL INFECTIONS OF UNSPECIFIED SITE SNOMED Code(s): 36588425 (3) Infected wound Current Visit: No Status: Acute Code(s): T14.8XXA - OTHER INJURY OF UNSPEC IFIED BODY REGION, INITIAL ENCOUNTER; L08.9 - LOCAL INFECTION OF THE SKIN AND SUBCUTANEOUS TISSUE, UNSP SNOMED Code(s): 91669798 Plan: 1patient with left heel stage III infected pressure ulcer in this patient who is status post surgical debridement of the wound on his last admission and deep culture positive for Enterococcus and Pseudomonas aeruginosa now being readmitted because of unable to care for himself at home 2patient to continuelocal wound care with Medih[facility] followed by moist dressing change daily 3patient is currently being treated Zosyn 3.37 g every 8 hours, which should be continued currently waiting for placement ask about shower he can have a shower discussed with the nursing staff Dictation was produced using [employer] dictation software. please excuse any grammatical, word or spelling errors. Time with Patient: Less than 30
--- NOTE | 2024-12-09 17:16 | P.PN ---
Progress Note - Text Progress Note Date: 12/09/24 Chief Complaint: Short of breath 69-year-old male with past medical history of CHF, CAD with previous PCI, CVA, HTN, HLD, lymphedema, morbid obesity, chronic hypoxic respiratory failure on home oxygen, COPD, NARCISO, tobacco use disorder, has a colostomy with end up parastomal hernia. Patient just in the hospital from November 25 through December 03. Was admitted with COPD exacerbation. Also cellulitis lower extremity and decubitus ulcer of the left heel. Debridement was carried out by Dr. Rueda. He will cultures grew multiple organisms including Enterococcus faecalis, Pseudomonas aeruginosa. Patient was seen by Dr. Frias from [place]. Patient was discharged on IV Zosyn. And a midline. Patient presented to the ER for shortness of breath. Placed on BiPAP. Patient's son at the bedside. Patient is having trouble getting the IV Zosyn. He could smell cigarette smoke in the house. Patient is currently on a BiPAP and still not able to give much of history. December 07: Saw the patient overflow in the ER. Still lethargic/encephalopathic but arousable. Placed back on BiPAP. December 08: Up in recliner. Out of encephalopathy. Holding a conversation. Down to 4 L nasal cannula. 100%. Getting IV Zosyn. December 09: Up in recliner. Breathing is better. Getting IV antibiotics. 4 L nasal cannula. antisqueak worker consulted to look at discharge planning/home issues. Active Medications Albuterol/Ipratropium (Ipratropium-Albuterol 3 Ml Neb) 3 ml INHALATION RT-QID [facility] Last Admin: 12/09/24 16:04 Dose: 3 ml Amiodarone HCl (Amiodarone 200 Mg Tab) 200 mg PO DAILY [facility] Last Admin: 12/09/24 09:18 Dose: 200 mg Apixaban (Apixaban 5 Mg Tab) 5 mg PO BID [facility]; Protocol Last Admin: 12/09/24 09:18 Dose: 5 mg Aspirin (Aspirin 81 Mg) 81 mg PO DAILY [facility] Last Admin: 12/09/24 09:18 Dose: 81 mg Atorvastatin Calcium (Atorvastatin 40 Mg Tab) 40 mg PO HS [facility] Last Admin: 12/08/24 21:42 Dose: 40 mg Budesonide (Budesonide 1 Mg/2 Ml Nebu) 1 mg INHALATION RT-BID [facility] Last Admin: 12/09/24 08:43 Dose: 1 mg Clopidogrel Bisulfate (Clopidogrel 75 Mg Tab) 75 mg PO DAILY [facility] Last Admin: 12/09/24 09:18 Dose: 75 mg Clotrimazole (Clotrimazole 1% Cream 30 Gm Tube) 1 applic TOPICAL BID [facility] Last Admin: 12/09/24 09:19 Dose: 1 applic Diclofenac Sodium (Diclofenac Sodium Gel 100 Gm Tube) 2 gm TOPICAL QID PRN; Protocol PRN Reason: pain Diltiazem HCl (Diltiazem Oral 60 Mg Tab) 60 mg PO Q8H [facility] Last Admin: 12/09/24 09:17 Dose: 60 mg Formoterol Fumarate (Formoterol Fumarate 20 Mcg/2 Ml Nebu) 20 mcg INHALATION RT-BID [facility] Last Admin: 12/09/24 08:43 Dose: 20 mcg Furosemide (Furosemide 40 Mg Tab) 40 mg PO BID [facility] Last Admin: 12/09/24 09:18 Dose: 40 mg Sodium Chloride (Saline 0.9%) 1,000 mls @ 20 mls/hr IV .Q24H [facility] Last Admin: 12/08/24 18:12 Dose: Not Given Isosorbide Mononitrate (Isosorbide Mononitrate Er 30 Mg Tab.Er.24h) 30 mg PO PC-LUNCH [facility] Last Admin: 12/09/24 13:46 Dose: 30 mg Losartan Potassium (Losartan 25 Mg Tab) 25 mg PO HS [facility] Last Admin: 12/08/24 21:42 Dose: 25 mg Methylprednisolone Sodium Succinate (Methylprednisolone Sod Succi 40 Mg/Ml 1 Ml Vial) 40 mg IV Q12H [facility] Last Admin: 12/09/24 09:19 Dose: 40 mg Metoprolol Tartrate (Metoprolol Tartrate 25 Mg Tab) 25 mg PO TID [facility] Last Admin: 12/09/24 15:48 Dose: 25 mg Naloxone HCl (Naloxone 0.4 Mg/Ml 1 Ml Vial) 0.2 mg IV Q2M PRN PRN Reason: Opioid Reversal Nicotine (Nicotine 14mg/24hr Patch) 1 patch TRANSDERM DAILY [facility] Last Admin: 12/09/24 09:19 Dose: Not Given Oxycodone/Acetaminophen (Oxycodone-Apap 10-325mg 1 Each Tab) 1 each PO Q6HR PRN PRN Reason: Pain Last Admin: 12/09/24 12:21 Dose: 1 each Pantoprazole Sodium (Pantoprazole 40 Mg Tablet) 40 mg PO AC-BRKFST [facility] Last Admin: 12/09/24 06:55 Dose: 40 mg Piperacillin Sod/Tazobactam Sod (Piperacillin-Tazobactam 3.375 Gm Vial) 3.375 gm IVPB Q8HR [facility]; Protocol Last Admin: 12/09/24 15:48 Dose: 3.375 gm Senna/Docusate Sodium (Sennosides-Docusate Sodium 1 Each Tab) 1 each PO BID [facility] Last Admin: 12/09/24 09:17 Dose: 1 each Silver Sulfadiazine (Silver Sulfadiazine 1% Cream 25 Gm Tube) 1 applic TOPICAL DAILY PRN; Protocol PRN Reason: LEGS Last Admin: 12/09/24 03:21 Dose: 1 applic Tamsulosin HCl (Tamsulosin 0.4 Mg Cap.Er.24h) 0.4 mg PO DAILY [facility] Last Admin: 12/09/24 09:17 Dose: 0.4 mg Past medical history: COPD in an ex-smoker, CHF from diastolic 50-55%, obesity hypoventilation syndrome, coronary artery disease with stent, hyperlipidemia, hypertension, AICD, chronic low back pain L2 to L5 as chronic fractures, morbid obesity, home oxygen 2 L, and right rotator cuff. Social history: Lives alone . Smokes about half a pack a day, since 1969.. No alcohol. Physical examination: VITAL SIGNS: 98.4, 70, 14, 103 x 53, 93% on 4 L GENERAL: Up in recliner, breathing better EYES: Pupils equal. Conjunctiva normal. HEENT: External appearance of nose and ears normal, oral cavity grossly normal. NECK: JVD unable to assess; masses not palpable. HEART: Heart sounds muffled, edema. LUNGS: Respiratory rate increased, decreased breath sound. . EXTREMITY: Edema. Chronic venous stasis changes with pigmentation. Dressing over the left leg. ABDOMEN: Soft, nontender, colostomy, with parastomal hernia, liver spleen not palpable. PSYCH: Alert oriented x 3. Mood affect better INVESTIGATIONS, reviewed in the clinical context: December 09: White count 12.8 hemoglobin 10.6 potassium 4.5 creatinine 0.96 December 06, 2024: White count 10 hemoglobin 10.3 platelets 159 potassium 4.1 bicarb 50 BUN 24 creatinine 0.77 Venous blood gases show pH of 7.3PCO2 greater than 98 Assessment and plan: - Acute on chronic exacerbation of hypoxic and hypercapnic respiratory failure secondary underlying COPD, and a current smoker: Proving BiPAP now off. 4 L nasal cannula Pulmonary following -Acute left heel decubitus ulcer November 29 underwent deep wound debridement by Dr. Rueda. Deep wound culture- multiple organisms On IV Zosyn per ID. Was discharged for 2 weeks of IV Zosyn per ID Being followed by ID wound care team -Acute COPD exacerbation with current smoker: T better DuoNeb every 4. Nebulized Perforomist and Pulmicort.. IV Solu-Medrol,-to every 12 -Chronic bilateral lower, venous insufficiency and possibly lymphedema, with deep pigmentation - Persistent atrial fibrillation. Rate controlled. Eliquis. Cardizem. Lopressor. -Chronic nicotine dependence, cigarette smoker Nicotine patch - peripheral neuropathy -Colostomy bag, with parastomal hernia Patient to follow-up with his surgeon outpatient -Chronic congestive heart failure from diastolic dysfunction EF 50-55%: Stable Lasix. -Obesity hypoventilation syndrome -Coronary artery disease with stent Aspirin Lopressor -Hyperlipidemia Lipitor -Essential hypertension Cardizem. Lopressor. -AICD - BPH Flomax - GERD Protonix -Chronic low back pain from L2 to L5 osteoarthritis with chronic fractures -Morbid obesity BMI 59.9 Weight loss measures -Chronic hypoxic respiratory failure , secondary to underlying COPD on 2 L oxygen at home -Chronic medical debility uses a motorized wheelchair -Full code Cussed with patient.Continue current medications.. antisqueak worker to discuss with patient discharge issues. Past Medical History Past Medical History: Coronary Artery Disease (CAD), Chest Pain / Angina, COPD, CVA/TIA, Hyperlipidemia, Hypertension, Myocardial Infarction (HI), Osteoarthritis (OA), Respiratory Disorder, Sleep Apnea/CPAP/BIPAP Additional Past Medical History / Comment(s): obesity, obesity hypoventilation syndrome, suspected CHF and cor pulmonale, previous history of defibrillator placement, CVA in 2004, chronic back pain secondary to DDD and spinal canal stenosis, history of vertebral fracture L2 through L5, chronic lower extremity edema, diverticular disease, L knee fx in past and torn R rotator cuff, cellulitis, hospitalization for gallbladder complications Last Myocardial Infarction Date:: 2011 History of Any Multi-Drug Resistant Organisms: None Reported Past Surgical History: Bowel Resection, Cholecystectomy, Heart Catheterization With Stent, Hernia Repair, Pacemaker Additional Past Surgical History / Comment(s): PTCA with stent (4 total), 04/05/13 [employer] pacemaker, umbilical hernia repair, colonoscopy, circumcision, R eye surgery for strabismus, gallbladder stents One removed from on 03/19, Colostomy with open wounds. Past Anesthesia/Blood Transfusion Reactions: No Reported Reaction Date of Last Stent Placement:: 2012 Type of Cardiac Device: Permanent Pacemaker Device Placement Date:: 04/05/13 Past Psychological History: No Psychological Hx Reported Smoking Status: Current some day smoker Past Alcohol Use History: None Reported Past Drug Use History: None Reported
--- NOTE | 2024-12-10 07:55 | P.CON ---
Consult Note - . Consult date: 12/10/24 Assessment/Plan:: Chief complaint: Heel ulceration stage III HPI: This is a 69-year-old male returning to the hospital after being discharged home with a right heel ulceration. He was to follow-up in the wound care center. He was sent home on IV antibiotics. He states he has been unable to take care of himself at home regarding antibiotics and making his meals. He denies any significant worsening to his ulceration but states that he needs assistance with treatment. He states that the wound did not bring him back into the hospital but his breathing issues did. He is hoping to be placed in some form of rehab facility in order to have assistance with his treatment options. He reports 0-10 pain to the heel today. Lower extremity exam: Vascular: Nonpalpable DP and PT pulse bilateral CFT less than 5 seconds all digits Moderate to severe lymphedema to bilateral lower extremity, symmetrical Derm: Plantar heel ulceration probes to the level of bone, left heel. No debridement performed today. Mixed granular fibrotic wound base. No significant surrounding cellulitis is present today. This is less than 1cm from wound base. Neuro: Decreased light touch sensation to the level of the mid tibia. MSK: No pain with palpation to the plantar heel ulceration. Gross range of motion intact to all digits bilateral. Strength is 5 out of 5 to all pedal muscle groups crossing ankle joint. Calves are taut secondary to chronic lymphedema but no deep pain with calf compression. Assessment: 1. Stage III ulcer left heel to the level of bone 2. Cellulitis right lower extremity 3. Lymphedema bilateral 4. Peripheral vascular disease Plan: Extensive discussion with patient today regarding his clinical findings. Dressings are being changed currently with Joshua every other day I am happy with that dressing change plan. At this time I do not have plan for formal surgical debridement. Will continue to monitor this daily. I do recommend patient require rehab facility on discharge. Patient is adamant today that he is not interested in doing any actual rehab in a facility and I discussed with him that this may be necessary in order to have placement. Will continue to monitor closely while patient remains in house. Becky Rueda, KEHINDE, AACFAS
[2024-12-10] MEDS: NYSTATIN 100,000 UNIT/GM POWD 15 GM TOPICAL SCH (12:59)
--- NOTE | 2024-12-10 14:36 | P.PN ---
Progress Note - Text Progress Note Date: 12/10/24 Chief Complaint: Short of breath 69-year-old male with past medical history of CHF, CAD with previous PCI, CVA, HTN, HLD, lymphedema, morbid obesity, chronic hypoxic respiratory failure on home oxygen, COPD, NARCISO, tobacco use disorder, has a colostomy with end up parastomal hernia. Patient just in the hospital from November 25 through December 03. Was admitted with COPD exacerbation. Also cellulitis lower extremity and decubitus ulcer of the left heel. Debridement was carried out by Dr. Rueda. He will cultures grew multiple organisms including Enterococcus faecalis, Pseudomonas aeruginosa. Patient was seen by Dr. Frias from [place]. Patient was discharged on IV Zosyn. And a midline. Patient presented to the ER for shortness of breath. Placed on BiPAP. Patient's son at the bedside. Patient is having trouble getting the IV Zosyn. He could smell cigarette smoke in the house. Patient is currently on a BiPAP and still not able to give much of history. December 07: Saw the patient overflow in the ER. Still lethargic/encephalopathic but arousable. Placed back on BiPAP. December 08: Up in recliner. Out of encephalopathy. Holding a conversation. Down to 4 L nasal cannula. 100%. Getting IV Zosyn. December 09: Up in recliner. Breathing is better. Getting IV antibiotics. 4 L nasal cannula. alteration worker consulted to look at discharge planning/home issues. December 10: Up in recliner. Patient seen at the bedside. Patient does not want to go to rehab. He thinks his son is very busy to help him although son is actually been helping him quite a bit. Different options were discussed. Also spoke to Pari heel caser. She has given him options for private pay. I was also informed that Dr. Robbins from pulmonary will make some settings on the CPAP. Patient needs an official outpatient sleep study. This can be done through his PCP. Total time spent today about 50 minutes with over 30 minutes of discussion. Active Medications Albuterol/Ipratropium (Ipratropium-Albuterol 3 Ml Neb) 3 ml INHALATION RT-QID [facility] Last Admin: 12/10/24 12:49 Dose: 3 ml Amiodarone HCl (Amiodarone 200 Mg Tab) 200 mg PO DAILY [facility] Last Admin: 12/10/24 09:05 Dose: 200 mg Apixaban (Apixaban 5 Mg Tab) 5 mg PO BID [facility]; Protocol Last Admin: 12/10/24 09:05 Dose: 5 mg Aspirin (Aspirin 81 Mg) 81 mg PO DAILY [facility] Last Admin: 12/10/24 09:05 Dose: 81 mg Atorvastatin Calcium (Atorvastatin 40 Mg Tab) 40 mg PO HS [facility] Last Admin: 12/09/24 20:29 Dose: 40 mg Budesonide (Budesonide 1 Mg/2 Ml Nebu) 1 mg INHALATION RT-BID [facility] Last Admin: 12/10/24 09:53 Dose: Not Given Clopidogrel Bisulfate (Clopidogrel 75 Mg Tab) 75 mg PO DAILY [facility] Last Admin: 12/10/24 09:05 Dose: 75 mg Clotrimazole (Clotrimazole 1% Cream 30 Gm Tube) 1 applic TOPICAL BID [facility] Last Admin: 12/10/24 09:06 Dose: 1 applic Diclofenac Sodium (Diclofenac Sodium Gel 100 Gm Tube) 2 gm TOPICAL QID PRN; Protocol PRN Reason: pain Diltiazem HCl (Diltiazem Oral 60 Mg Tab) 60 mg PO Q8H [facility] Last Admin: 12/10/24 09:05 Dose: 60 mg Formoterol Fumarate (Formoterol Fumarate 20 Mcg/2 Ml Nebu) 20 mcg INHALATION RT-BID [facility] Last Admin: 12/10/24 09:53 Dose: Not Given Furosemide (Furosemide 40 Mg Tab) 40 mg PO BID [facility] Last Admin: 12/10/24 09:05 Dose: 40 mg Sodium Chloride (Saline 0.9%) 1,000 mls @ 20 mls/hr IV .Q24H [facility] Last Admin: 12/10/24 13:19 Dose: Not Given Isosorbide Mononitrate (Isosorbide Mononitrate Er 30 Mg Tab.Er.24h) 30 mg PO PC-LUNCH [facility] Last Admin: 12/10/24 12:59 Dose: 30 mg Losartan Potassium (Losartan 25 Mg Tab) 25 mg PO HS [facility] Last Admin: 12/09/24 20:29 Dose: 25 mg Methylprednisolone Sodium Succinate (Methylprednisolone Sod Succi 40 Mg/Ml 1 Ml Vial) 40 mg IV Q12H [facility] Last Admin: 12/10/24 09:05 Dose: 40 mg Metoprolol Tartrate (Metoprolol Tartrate 25 Mg Tab) 25 mg PO TID [facility] Last Admin: 12/10/24 09:05 Dose: 25 mg Naloxone HCl (Naloxone 0.4 Mg/Ml 1 Ml Vial) 0.2 mg IV Q2M PRN PRN Reason: Opioid Reversal Nicotine (Nicotine 14mg/24hr Patch) 1 patch TRANSDERM DAILY [facility] Last Admin: 12/10/24 09:06 Dose: Not Given Nystatin (Nystatin 100,000 Unit/Gm Powd 15 Gm) 1 applic TOPICAL BID [facility]; Protocol Last Admin: 12/10/24 12:59 Dose: 1 applic Oxycodone/Acetaminophen (Oxycodone-Apap 10-325mg 1 Each Tab) 1 each PO Q6HR PRN PRN Reason: Pain Last Admin: 12/10/24 12:59 Dose: 1 each Pantoprazole Sodium (Pantoprazole 40 Mg Tablet) 40 mg PO AC-BRKFST [facility] Last Admin: 12/10/24 06:37 Dose: 40 mg Piperacillin Sod/Tazobactam Sod (Piperacillin-Tazobactam 3.375 Gm Vial) 3.375 gm IVPB Q8HR [facility]; Protocol Last Admin: 12/10/24 09:05 Dose: 3.375 gm Senna/Docusate Sodium (Sennosides-Docusate Sodium 1 Each Tab) 1 each PO BID [facility] Last Admin: 12/10/24 09:05 Dose: 1 each Silver Sulfadiazine (Silver Sulfadiazine 1% Cream 25 Gm Tube) 1 applic TOPICAL DAILY PRN; Protocol PRN Reason: LEGS Last Admin: 12/10/24 04:46 Dose: 1 applic Tamsulosin HCl (Tamsulosin 0.4 Mg Cap.Er.24h) 0.4 mg PO DAILY [facility] Last Admin: 12/10/24 09:05 Dose: 0.4 mg Past medical history: COPD in an ex-smoker, CHF from diastolic 50-55%, obesity hypoventilation syndrome, coronary artery disease with stent, hyperlipidemia, hypertension, AICD, chronic low back pain L2 to L5 as chronic fractures, morbid obesity, home oxygen 2 L, and right rotator cuff. Social history: Lives alone . Smokes about half a pack a day, since 1969.. No alcohol. Physical examination: VITAL SIGNS: 98.3, 100, 20, 114 x 76, 97% on 4 L GENERAL: Up in recliner, breathing better EYES: Pupils equal. Conjunctiva normal. HEENT: External appearance of nose and ears normal, oral cavity grossly normal. NECK: JVD unable to assess; masses not palpable. HEART: Heart sounds muffled, edema. LUNGS: Respiratory rate increased, decreased breath sound. . EXTREMITY: Edema. Chronic venous stasis changes with pigmentation. Dressing over the left leg/left heel wound. ABDOMEN: Soft, nontender, colostomy, with parastomal hernia, liver spleen not palpable. PSYCH: Alert oriented x 3. Mood affect better INVESTIGATIONS, reviewed in the clinical context: December 09: White count 12.8 hemoglobin 10.6 potassium 4.5 creatinine 0.96 December 06, 2024: White count 10 hemoglobin 10.3 platelets 159 potassium 4.1 bicarb 50 BUN 24 creatinine 0.77 Venous blood gases show pH of 7.3PCO2 greater than 98 Assessment and plan: - Acute on chronic exacerbation of hypoxic and hypercapnic respiratory failure secondary underlying COPD, and a current smoker: Better BiPAP now off. 4 L nasal cannula Pulmonary following -Acute left heel decubitus ulcer November 29 underwent deep wound debridement by Dr. Rueda. Deep wound culture- multiple organisms On IV Zosyn per ID. Was discharged for 2 weeks of IV Zosyn per ID Being followed by ID wound care team -Acute COPD exacerbation with current smoker: T better DuoNeb every 4. Nebulized Perforomist and Pulmicort.. -Chronic bilateral lower, venous insufficiency and possibly lymphedema, with deep pigmentation - Persistent atrial fibrillation. Rate controlled. Eliquis. Cardizem. Lopressor. -Chronic nicotine dependence, cigarette smoker Nicotine patch - peripheral neuropathy -Colostomy bag, with parastomal hernia Patient to follow-up with his surgeon outpatient -Chronic congestive heart failure from diastolic dysfunction EF 50-55%: Stable Lasix. -Obesity hypoventilation syndrome -Coronary artery disease with stent Aspirin Lopressor -Hyperlipidemia Lipitor -Essential hypertension Cardizem. Lopressor. -AICD - BPH Flomax - GERD Protonix -Chronic low back pain from L2 to L5 osteoarthritis with chronic fractures -Morbid obesity BMI 59.9 Weight loss measures -Chronic hypoxic respiratory failure , secondary to underlying COPD on 2 L oxygen at home -Chronic medical debility uses a motorized wheelchair -Full code Looking at private pay to help him with his home dressings. Son is helping out. CPAP setting will be done by Dr. Robbins tomorrow. Plan for discharge tomorrow. Will confirm with the nurse with patient's actual PCP. Patient not sure. Past Medical History Past Medical History: Coronary Artery Disease (CAD), Chest Pain / Angina, COPD, CVA/TIA, Hyperlipidemia, Hypertension, Myocardial Infarction (ID), Osteoarthritis (OA), Respiratory Disorder, Sleep Apnea/CPAP/BIPAP Additional Past Medical History / Comment(s): obesity, obesity hypoventilation syndrome, suspected CHF and cor pulmonale, previous history of defibrillator placement, CVA in 2004, chronic back pain secondary to DDD and spinal canal stenosis, history of vertebral fracture L2 through L5, chronic lower extremity edema, diverticular disease, L knee fx in past and torn R rotator cuff, cellulitis, hospitalization for gallbladder complications Last Myocardial Infarction Date:: 2011 History of Any Multi-Drug Resistant Organisms: None Reported Past Surgical History: Bowel Resection, Cholecystectomy, Heart Catheterization With Stent, Hernia Repair, Pacemaker Additional Past Surgical History / Comment(s): PTCA with stent (4 total), 04/05/13 [employer] pacemaker, umbilical hernia repair, colonoscopy, circumcision, R eye surgery for strabismus, gallbladder stents One removed from on 03/19, Colostomy with open wounds. Past Anesthesia/Blood Transfusion Reactions: No Reported Reaction Date of Last Stent Placement:: 2012 Type of Cardiac Device: Permanent Pacemaker Device Placement Date:: 04/05/13 Past Psychological History: No Psychological Hx Reported Smoking Status: Current some day smoker Past Alcohol Use History: None Reported Past Drug Use History: None Reported
--- NOTE | 2024-12-10 17:48 | P.PN ---
Subjective Progress Note Date: 12/10/24 69-year-old male well-known to our service. The patient was seen in the emergency department, on December 06, 2024. He apparently came in there with complaints of upper respiratory tract infection, difficulty in breathing. According to the patient's son, the main reason that he came in was because he was expected to give himself antibiotics for his recent infection, 3 times a day, and apparently could not do that. He thought a visiting nurse was going to be coming to the house 3 times a day, to do the infusion for him. In addition, the patient complained of shortness of breath, which necessitated a call to EMS. That was not the first call. The patient was found to be dyspneic, placed on oxygen, and brought to the emergency room, for further management, and monitoring. The patient is seen today in room 23, in the emergency department. His son is at the bedside. He is currently on BiPAP, with settings of 14/6, and 35%. He is getting Zosyn IV. He is also on saline at 20 cc an hour. He has a recent left heel infection, caused by both Pseudomonas and Enterococcus. He was discharged from the hospital recently on December 03, and readmitted on December 06. Current labs include a white count of 10, hemoglobin 10.3, hematocrit 34.1, and a normal platelet count. Venous blood gases showed a PCO2 of greater than 98, and a pH is 7.3. Sodium 137, potassium 4.1, chlorides 84, CO2 50, anion gap 3, BUN 24, and creatinine 0.77. Glucose was 106. Lactic acid was 0.6. Viral screen was negative. Chest x-ray shows cardiomegaly, with bilateral pleural effusions. There was no overt pulmonary vascular congestion. Progress note dated December 08, 2024. 69-year-old male seen yesterday in consultation. Please see my note above. He was seen in the emergency department. He is seen today in room 371. He is sitting in a chair, next to the hospital bed. He is getting saline at 20 cc an hour, nasal cannula 4 L. He did wear the BiPAP last night, for a number of hours, with settings of 14/6, 35%. No new labs today. The previous labs have been reviewed. The patient was previously discharged on Zosyn, for a left heel infection. He apparently could not administer the medication at home, so he came into the emergency room to be evaluated. Talking to his son yesterday, the patient would likely be discharged to some sort of rehab facility or snf, where he can have some help with his antibiotics. Progress note dated December 09, 2024. 69-year-old male seen today in room 371. He is sitting in a chair next to the hospital bed. He is comfortable, on 4 L. He is getting saline at 20 cc an hour. He did use the BiPAP throughout the night according to the nurse, with settings of 14/6, 35%. The patient has no new complaints today. He feels well. White count is 12.9, hemoglobin 10.6, hematocrit 34.2, and platelet count is normal. The patient had a venous blood gas, December 06, at that time, his CO2 was 98, and his pH was 7.30. Sodium 137, potassium 4.5, chloride 91, CO2 40, BUN 25, creatinine 0.96. Glucose is 143. Albumin is 2.8. Viral screen was negative. On 12/10/2024, the patient is being seen for a follow-up. He is utilizing a BiPAP at a pressure of 14 over 6 cm of water with an FiO2 of 35%. He has a home device in addition. While off the BiPAP, the patient on 4 L of oxygen by nasal cannula. He remains on DuoNeb nebulized treatments [id number]. He is also on IV Solu-Medrol 40 mg every 12 hours. He is also on a combination performance of Pulmicort nebulized treatments twice a day. He is covered with IV Zosyn and the patient is also on Lasix 40 mg p.o. twice a day. Rest of the medications remain unchanged. Remains on aspirin and Plavix and he is on anticoagulation with Eliquis 5 mg p.o. twice a day and is also on amiodarone 200 mg p.o. daily and metoprolol 25 mg p.o. 3 times daily. Blood work from today shows a WBC count of 12.8 with a heme of 10.6 and a platelet count of 179. BUN is 25 with a creatinine of 0.9. Sodium levels at 137. His proBNP level at time of admission was 365 and troponins were negative. Chest x-ray on 12/06/2024 is consistent with cardiomegaly, small bilateral pleural effusions and the patient has a AICD in place. Clinically, the patient feels less short of breath.. No cough. No sputum production. No chest pain. Objective - Vital Signs Vital signs: Vital Signs Temp 98.3 F 12/10/24 08:00 Pulse 100 12/10/24 08:00 Resp 20 12/10/24 08:00 BP 114/76 12/10/24 08:00 Pulse Ox 97 12/10/24 08:00 FiO2 35 12/10/24 04:45 Intake & Output 12/09/24 12/10/24 12/10/24 18:59 06:59 18:59 Intake Total 478 1080 Output Total 450 250 500 Balance 28 830 -500 Weight 168.1 kg Intake: Oral 478 1080 Output: Urine 450 250 500 Other: Voiding Method Urinal Urinal Urinal - Exam No acute distress, awake and alert, sitting in the chair next to the hospital bed, on 4 L. The patient was morbidly obese with a BMI of 50.3. HEENT examination is grossly unremarkable. Neck supple. Full range of motion. No adenopathy thyromegaly or neck vein d istention. Cardiovascular examination reveals regular rhythm rate. S1-S2 normal. No S3 or S4. No discernible murmur noted. Heart sounds are distant. Lungs reveal minimal scattered rhonchi. No wheezes. No crackles. Breath sounds equal bilaterally. Abdomen obese, without bowel sounds. No masses or tenderness. Extremities reveal significant edema, and cellulitis, with chronic venous stasis changes. Skin reveals chronic changes particular in the lower extremities. Neurologic examination is brief, but nonfocal. - Labs CBC & Chem 7: 12/09/24 06:36 12/09/24 06:36 Assessment and Plan Plan: Acute on chronic shortness of breath, secondary to COPD exacerbation. Currently on 4 L of oxygen by nasal cannula. Utilizing BiPAP overnight at a pressure of 14/6 with an FiO2 of 35%. Chronic left heel infection, secondary to Pseudomonas and Enterococcus, currently on Zosyn. Morbid obesity, with a BMI of 50 Chronic hypoxemic respiratory failure, multifactorial, part related to COPD, obstructive sleep apnea syndrome, and possible pickwickian syndrome. History of obstructive sleep apnea syndrome, and the patient has a home device/CPAP/BiPAP History of chronic tobacco use. Coronary artery disease with previous PCI. Chronic congestive heart failure from diastolic dysfunction EF 50-55%: Chronic atrial fibrillation AICD placement. History of CVA. Hypertension. Hyperlipidemia. Chronic lower extremity lymphedema and chronic venous stasis changes with hyperpigmentation. History of bowel resection, with diverting colostomy. Degenerative disc disease. History of diverticular disease. Peripheral neuropathy. Chronic medical debility, with multiple hospital admissions. Plan: Clinically stable and the patient is currently on 4 L of oxygen by nasal cannula Continue to lysing BiPAP overnight at a pressure of 14/6 with an FiO2 of 35% Bring the CPAP/BiPAP machine from home to make adjustments on the pressure setting and assess compliancy Continue IV Zosyn Continue bronchodilators DuoNeb updraft Continue IV Solu-Medrol Continue metoprolol 25 mg p.o. twice daily and amiodarone Anticoagulation with Eliquis Aspirin and Plavix IV fluids to KVO Increase mobility. Will continue to follow.
--- NOTE | 2024-12-11 14:00 | P.PN ---
Subjective Progress Note Date: 12/11/24 69-year-old male well-known to our service. The patient was seen in the emergency department, on December 06, 2024. He apparently came in there with complaints of upper respiratory tract infection, difficulty in breathing. According to the patient's son, the main reason that he came in was because he was expected to give himself antibiotics for his recent infection, 3 times a day, and apparently could not do that. He thought a visiting nurse was going to be coming to the house 3 times a day, to do the infusion for him. In addition, the patient complained of shortness of breath, which necessitated a call to EMS. That was not the first call. The patient was found to be dyspneic, placed on oxygen, and brought to the emergency room, for further management, and monitoring. The patient is seen today in room 23, in the emergency department. His son is at the bedside. He is currently on BiPAP, with settings of 14/6, and 35%. He is getting Zosyn IV. He is also on saline at 20 cc an hour. He has a recent left heel infection, caused by both Pseudomonas and Enterococcus. He was discharged from the hospital recently on December 03, and readmitted on December 06. Current labs include a white count of 10, hemoglobin 10.3, hematocrit 34.1, and a normal platelet count. Venous blood gases showed a PCO2 of greater than 98, and a pH is 7.3. Sodium 137, potassium 4.1, chlorides 84, CO2 50, anion gap 3, BUN 24, and creatinine 0.77. Glucose was 106. Lactic acid was 0.6. Viral screen was negative. Chest x-ray shows cardiomegaly, with bilateral pleural effusions. There was no overt pulmonary vascular congestion. Progress note dated December 08, 2024. 69-year-old male seen yesterday in consultation. Please see my note above. He was seen in the emergency department. He is seen today in room 371. He is sitting in a chair, next to the hospital bed. He is getting saline at 20 cc an hour, nasal cannula 4 L. He did wear the BiPAP last night, for a number of hours, with settings of 14/6, 35%. No new labs today. The previous labs have been reviewed. The patient was previously discharged on Zosyn, for a left heel infection. He apparently could not administer the medication at home, so he came into the emergency room to be evaluated. Talking to his son yesterday, the patient would likely be discharged to some sort of rehab facility or fdc, where he can have some help with his antibiotics. Progress note dated December 09, 2024. 69-year-old male seen today in room 371. He is sitting in a chair next to the hospital bed. He is comfortable, on 4 L. He is getting saline at 20 cc an hour. He did use the BiPAP throughout the night according to the nurse, with settings of 14/6, 35%. The patient has no new complaints today. He feels well. White count is 12.9, hemoglobin 10.6, hematocrit 34.2, and platelet count is normal. The patient had a venous blood gas, December 06, at that time, his CO2 was 98, and his pH was 7.30. Sodium 137, potassium 4.5, chloride 91, CO2 40, BUN 25, creatinine 0.96. Glucose is 143. Albumin is 2.8. Viral screen was negative. On 12/10/2024, the patient is being seen for a follow-up. He is utilizing a BiPAP at a pressure of 14 over 6 cm of water with an FiO2 of 35%. He has a home device in addition. While off the BiPAP, the patient on 4 L of oxygen by nasal cannula. He remains on DuoNeb nebulized treatments [id number]. He is also on IV Solu-Medrol 40 mg every 12 hours. He is also on a combination performance of Pulmicort nebulized treatments twice a day. He is covered with IV Zosyn and the patient is also on Lasix 40 mg p.o. twice a day. Rest of the medications remain unchanged. Remains on aspirin and Plavix and he is on anticoagulation with Eliquis 5 mg p.o. twice a day and is also on amiodarone 200 mg p.o. daily and metoprolol 25 mg p.o. 3 times daily. Blood work from today shows a WBC count of 12.8 with a heme of 10.6 and a platelet count of 179. BUN is 25 with a creatinine of 0.9. Sodium levels at 137. His proBNP level at time of admission was 365 and troponins were negative. Chest x-ray on 12/06/2024 is consistent with cardiomegaly, small bilateral pleural effusions and the patient has a AICD in place. Clinically, the patient feels less short of breath.. No cough. No sputum production. No chest pain. On 12/11/2024, the patient is being seen for a follow-up. The patient is currently, comfortable on 40 Suboxone by nasal cannula. Overnight, the patient was utilizing the BiPAP pressure 14/6 with an FiO2 of 35%. Fluid balance is - 1.4 L over the past 24 hours and the patient remains on oral Lasix 40 mg p.o. twice a day. The patient remains on amiodarone 200 g p.o. daily metoprolol 25 mg p.o. twice daily and is long-term anticoagulation with Eliquis 5 mg p.o. twice daily and oral aspirin. Remains on IV Solu-Medrol 40 g every 12 hours in combination with DuoNeb nebulizer and this [id number]. The patient is on empiric antibiotic coverage with IV Zosyn. Awake and alert and communicating. The patient brought in a CPAP device from home. This is a ResMed S9 series. In fact this is not his machine and this is his son's machine. He does not have the appropriate accessories to utilize his CPAP at home. Objective - Vital Signs Vital signs: Vital Signs Temp 97.4 F L 12/11/24 08:00 Pulse 92 12/11/24 09:21 Resp 20 12/11/24 08:00 BP 119/81 12/11/24 08:00 Pulse Ox 99 12/11/24 08:00 FiO2 35 12/11/24 05:22 Intake & Output 12/10/24 12/11/24 12/11/24 18:59 06:59 18:59 Intake Total 540 240 Output Total 1100 875 250 Balance -560 -875 -10 Intake: Oral 540 240 Output: Urine 1100 875 250 Other: Voiding Method Urinal Urinal Urinal # Voids 1 1 # Bowel Movements 1 - Exam No acute distress, awake and alert, sitting in the chair next to the hospital bed, on 4 L. The patient was morbidly obese with a BMI of 50.3. HEENT examination is grossly unremarkable. Neck supple. Full range of motion. No adenopathy thyromegaly or neck vein distention. Cardiovascular examination reveals regular rhythm rate. S1-S2 normal. No S3 or S4. No discernible murmur noted. Heart sounds are distant. Lungs reveal minimal scattered rhonchi. No wheezes. No crackles. Breath sounds equal bilaterally. Abdomen obese, without bowel sounds. No masses or tenderness. Extremities reveal significant edema, and cellulitis, with chronic venous stasis changes. Skin reveals chronic changes particular in the lower extremities. Neurologic examination is brief, but nonfocal. - Labs CBC & Chem 7: 12/09/24 06:36 12/09/24 06:36 Assessment and Plan Plan: Acute on chronic shortness of breath, secondary to COPD exacerbation. Currently on 4 L of oxygen by nasal cannula. Utilizing BiPAP overnight at a pressure of 14/6 with an FiO2 of 35%. Overall respiratory status is stable. The patient denies having any significant shortness of breath and the patient is currently on 4 L of O2 nasal cannula. Chronic left heel infection, secondary to Pseudomonas and Enterococcus, currently on Zosyn. Morbid obesity, with a BMI of 50 Chronic hypoxemic respiratory failure, multifactorial, part related to COPD, obstructive sleep apnea syndrome, and possible pickwickian syndrome. While in the hospital, the patient utilizing BiPAP at a pressure of 14 over 6 cm of water overnight. History of obstructive sleep apnea syndrome, and the patient does not have a functioning CPAP/BiPAP unit at home. History of chronic tobacco use. Coronary artery disease with previous PCI. Chronic congestive heart failure from diastolic dysfunction EF 50-55%: Chronic atrial fibrillation AICD placement. History of CVA. Hypertension. Hyperlipidemia. Chronic lower extremity lymphedema and chronic venous stasis changes with hyperpigmentation. History of bowel resection, with diverting colostomy. Degenerative disc disease. History of diverticular disease. Peripheral neuropathy. Chronic medical debility, with multiple hospital admissions. Plan: Clinically stable and the patient is currently on 4 L of oxygen by nasal cannula Continue to lysing BiPAP overnight at a pressure of 14/6 with an FiO2 of 35% The patient will need a sleep study. However he states that he is unable to leave his home/residence setting. Is unable to come in to the sleep center to undergo a sleep study. I have not made recommendations to do a home sleep study on this patient and this can be coordinated through his visiting physician and following that the patient should be able to obtain a CPAP/BiPAP device that anuj keziad help him with his COPD and obstructive sleep apnea. Continue IV Zosyn Continue bronchodilators DuoNeb updraft Continue IV Solu-Medrol, will transition to prednisone burst taper at time of discharge. Continue metoprolol 25 mg p.o. twice daily and amiodarone Anticoagulation with Eliquis Aspirin and Plavix IV fluids to KVO Increase mobility. Will continue to follow. Time with Patient: Greater than 30
[2024-12-11 14:28] VITALS: BMI 50.2
[2024-12-11 15:43] VITALS: BP 129/76; TEMP 97.7
[2024-12-11 16:11] VITALS: RESP 16
[2024-12-11 16:17] VITALS: PULSE 88
--- NOTE | 2024-12-11 16:39 | P.PN ---
Subjective Progress Note Date: 12/10/24 Principal diagnosis: Reason for follow-up is left heel infected wound Patient is a 69-year-old male with multiple comorbidity did have an infected left heel pressure ulcer with a culture positive for Pseudomonas and Enterococcus faecalis being readmitted to hospital because of unable to take care of his wound or diffuse antibiotic. On today's evaluation that is 12/10/2024, patient has been afebrile, patient is breathing comfortably and is currently on 4 L nasal oxygen, patient denies having any chest pain and cough, patient denies nausea vomiting or diarrhea and no abdominal pain, denies any worsening pain to the left heel wound area. No new labs has been obtained today Objective - Vital Signs Vital signs: Vital Signs Temp 98.3 F 12/10/24 08:00 Pulse 96 12/10/24 12:59 Resp 18 12/10/24 12:00 BP 138/87 12/10/24 12:00 Pulse Ox 98 12/10/24 12:00 FiO2 35 12/10/24 04:45 Intake & Output 12/09/24 12/10/24 12/10/24 18:59 06:59 18:59 Intake Total 478 1080 540 Output Total 781 159 4424 Balance 28 830 -560 Weight 168.1 kg Intake: Oral 478 1080 540 Output: Urine 339 050 6709 Other: Voiding Method Urinal Urinal Urinal # Voids 1 # Bowel Movements 1 - Exam GENERAL DESCRIPTION: An elderly male lying in bed in no distress RESPIRATORY SYSTEM: Unlabored breathing , decreased breath sounds at bases HEART: S1 S2 regular rate and rhythm , ABDOMEN: Soft , no tenderness EXTREMITIES: Left heel wound is currently dressed - Labs CBC & Chem 7: 12/09/24 06:36 12/09/24 06:36 Assessment and Plan (1) Decubitus ulcer of left heel, stage 3 Current Visit: Yes Status: Acute Code(s): L89.623 - PRESSURE ULCER OF LEFT HEEL, STAGE 3 SNOMED Code(s): 42384586126597 (2) Pseudomonas aeruginosa infection Current Visit: Yes Status: Acute Code(s): A49.8 - OTHER BACTERIAL INFECTIONS OF UNSPECIFIED SITE SNOMED Code(s): 24319972 (3) Infected wound Current Visit: No Status: Acute Code(s): T14.8XXA - OTHER INJURY OF UNSPECIFIED BODY REGION, INITIAL ENCOUNTER; L08.9 - LOCAL INFECTION OF THE SKIN AND SUBCUTANEOUS TISSUE, UNSP SNOMED Code(s): 43183249 Plan: 1patient with left heel stage III infected pressure ulcer in this patient who i s status post surgical debridement of the wound on his last admission and deep culture positive for Enterococcus and Pseudomonas aeruginosa now being readmitted because of unable to care for himself at home 2patient to continuelocal wound care with Medihoney followed by moist dressing change daily 3patient is currently being treated Zosyn 3.37 g every 8 hours to finish his 2- week course of therapy Dictation was produced using [employer] dictation software. please excuse any grammatical, word or spelling errors. Time with Patient: Less than 30
--- NOTE | 2024-12-11 16:40 | P.PN ---
Subjective Progress Note Date: 12/11/24 Principal diagnosis: Reason for follow-up is left heel infected wound Patient is a 69-year-old male with multiple comorbidity did have an infected left heel pressure ulcer with a culture positive for Pseudomonas and Enterococcus faecalis being readmitted to hospital because of unable to take care of his wound or diffuse antibiotic. On today's evaluation that is 12/11/2024, Patient is afebrile this morning patient denies having any chest pain shortness of breath or cough, the patient is currently on 4 L nasal oxygen patient denies any abdominal pain no diarrhea no nausea no vomiting, denies pain to the left heel wound. No new lab has been obtained today Objective - Vital Signs Vital signs: Vital Signs Temp 97.7 F 12/11/24 15:41 Pulse 88 12/11/24 16:16 Resp 16 12/11/24 16:08 BP 129/76 12/11/24 15:41 Pulse Ox 99 12/11/24 15:41 FiO2 35 12/11/24 05:22 Intake & Output 12/10/24 12/11/24 12/11/24 18:59 06:59 18:59 Intake Total 540 898 Output Total 1100 875 500 Balance -560 -875 398 Weight 168.1 kg Intake: Oral 540 898 Output: Urine 1100 875 500 Other: Voiding Method Urinal Urinal Urinal # Voids 1 1 # Bowel Movements 1 - Exam GENERAL DESCRIPTION: An elderly male lying in bed in no distress RESPIRATORY SYSTEM: Unlabored breathing , decreased breath sounds at bases HEART: S1 S2 regular rate and rhythm , ABDOMEN: Soft , no tenderness EXTREMITIES: Left heel wound is currently dressed - Labs CBC & Chem 7: 12/09/24 06:36 12/09/24 06:36 Assessment and Plan (1) Decubitus ulcer of left heel, stage 3 Current Visit: Yes Status: Acute Code(s): L89.623 - PRESSURE ULCER OF LEFT HEEL, STAGE 3 SNOMED Code(s): 42324520346144 (2) Pseudomonas aeruginosa infection Current Visit: Yes Status: Acute Code(s): A49.8 - OTHER BACTERIAL INFECTIONS OF UNSPECIFIED SITE SNOMED Code(s): 45687023 (3) Infected wound Current Visit: No Status: Acute Code(s): T14.8XXA - OTHER INJURY OF UNSPEC IFIED BODY REGION, INITIAL ENCOUNTER; L08.9 - LOCAL INFECTION OF THE SKIN AND SUBCUTANEOUS TISSUE, UNSP SNOMED Code(s): 44485752 Plan: 1patient with left heel stage III infected pressure ulcer in this patient who is status post surgical debridement of the wound on his last admission and deep culture positive for Enterococcus and Pseudomonas aeruginosa now being readmitted because of unable to care for himself at home 2patient to continuelocal wound care with Medihoney followed by moist dressing change daily 3patient is currently being treated Zosyn 3.37 g every 8 hours to finish his 2- week course of therapy, prescription was provided to the case hardener and close outpatient follow-up Dictation was produced using [employer] dictation software. please excuse any grammatical, word or spelling errors. Time with Patient: Less than 30
--- NOTE | 2024-12-11 17:46 | P.PN ---
Progress Note - Text Progress Note Date: 12/11/24 Chief Complaint: Short of breath 69-year-old male with past medical history of CHF, CAD with previous PCI, CVA, HTN, HLD, lymphedema, morbid obesity, chronic hypoxic respiratory failure on home oxygen, COPD, NARCISO, tobacco use disorder, has a colostomy with end up parastomal hernia. Patient just in the hospital from November 25 through December 03. Was admitted with COPD exacerbation. Also cellulitis lower extremity and decubitus ulcer of the left heel. Debridement was carried out by Dr. Rueda. He will cultures grew multiple organisms including Enterococcus faecalis, Pseudomonas aeruginosa. Patient was seen by Dr. Frias from [place]. Patient was discharged on IV Zosyn. And a midline. Patient presented to the ER for shortness of breath. Placed on BiPAP. Patient's son at the bedside. Patient is having trouble getting the IV Zosyn. He could smell cigarette smoke in the house. Patient is currently on a BiPAP and still not able to give much of history. December 07: Saw the patient overflow in the ER. Still lethargic/encephalopathic but arousable. Placed back on BiPAP. December 08: Up in recliner. Out of encephalopathy. Holding a conversation. Down to 4 L nasal cannula. 100%. Getting IV Zosyn. December 09: Up in recliner. Breathing is better. Getting IV antibiotics. 4 L nasal cannula. grey roll worker consulted to look at discharge planning/home issues. December 10: Up in recliner. Patient seen at the bedside. Patient does not want to go to rehab. He thinks his son is very busy to help him although son is actually been helping him quite a bit. Different options were discussed. Also spoke to [facility] case manager specialist. She has given him options for private pay. I was also informed that Dr. Robbins from pulmonary will make some settings on the CPAP. Patient needs an official outpatient sleep study. This can be done through his PCP. Total time spent today about 50 minutes with over 30 minutes of discussion. December 11: Patient will complete a course of IV Zosyn outpatient. Total of 2 weeks. CPAP machine was brought in from home that belongs to patient's son. Several parts are missing. Patient Shima the need of home sleep apnea test assessment or to come into the hospital for the same. I tried reaching Dr. Anna on the phone but then I sent him a text message to try to arrange for outpatient at home sleep apnea study. Today spoken to the patient. He is rather frustrated about the entire situation and the whole medical system as a whole. I did say that I did understand his frustration. Wound care to continue. Past medical history: COPD in an ex-smoker, CHF from diastolic 50-55%, obesity hypoventilation syndrome, coronary artery disease with stent, hyperlipidemia, hypertension, AICD, chronic low back pain L2 to L5 as chronic fractures, morbid obesity, home oxygen 2 L, and right rotator cuff. Social history: Lives alone . Smokes about half a pack a day, since 1969.. No alcohol. Physical examination: VITAL SIGNS: 97.7, 109, 18, 129 x 76, 99% 4 L GENERAL: Up in recliner, stable EYES: Pupils equal. Conjunctiva normal. HEENT: External appearance of nose and ears normal, oral cavity grossly normal. NECK: JVD unable to assess; masses not palpable. HEART: Heart sounds muffled, edema. LUNGS: Respiratory rate increased, decreased breath sound. . EXTREMITY: Edema. Chronic venous stasis changes with pigmentation. Dressing over the left leg/left heel wound. ABDOMEN: Soft, nontender, colostomy, with parastomal hernia, liver spleen not palpable. PSYCH: Alert oriented x 3. Mood affect better INVESTIGATIONS, reviewed in the clinical context: December 09: White count 12.8 hemoglobin 10.6 potassium 4.5 creatinine 0.96 December 06, 2024: White count 10 hemoglobin 10.3 platelets 159 potassium 4.1 bicarb 50 BUN 24 creatinine 0.77 Venous blood gases show pH of 7.3PCO2 greater than 98 Assessment and plan: - Acute on chronic exacerbation of hypoxic and hypercapnic respiratory failure secondary underlying COPD, and a current smoker: Better BiPAP now off. 4 L nasal cannula Pulmonary following Patient to follow-up with Dr. Anna outpatient-to arrange for home sleep apnea testing -Acute left heel decubitus ulcer November 29 underwent deep wound debridement by Dr. Rueda. Deep wound culture- multiple organisms On IV Zosyn per ID. Was discharged for 2 weeks of IV Zosyn per ID Being followed by ID and wound care team. Complete course of IV Zosyn. -Acute COPD exacerbation with current smoker: Much improved DuoNeb every 4. Nebulized Perforomist and Pulmicort.. -Chronic bilateral lower, venous insufficiency and possibly lymphedema, with deep pigmentation - Persistent atrial fibrillation. Rate controlled. Eliquis. Cardizem. Lopressor. -Chronic nicotine dependence, cigarette smoker Nicotine patch - peripheral neuropathy -Colostomy bag, with parastomal hernia Patient to follow-up with his surgeon outpatient -Chronic congestive heart failure from diastolic dysfunction EF 50-55%: Stable Lasix. -Obesity hypoventilation syndrome -Coronary artery disease with stent Aspirin Lopressor -Hyperlipidemia Lipitor -Essential hypertension Cardizem. Lopressor. -AICD - BPH Flomax - GERD Protonix -Chronic low back pain from L2 to L5 osteoarthritis with chronic fractures -Morbid obesity BMI 59.9 Weight loss measures -Chronic hypoxic respiratory failure , secondary to underlying COPD on 2 L oxygen at home -Chronic medical debility uses a motorized wheelchair -Full code Disposition: Home Past Medical History Past Medical History: Coronary Artery Disease (CAD), Chest Pain / Angina, COPD, CVA/TIA, Hyperlipidemia, Hypertension, Myocardial Infarction ([place]), Osteoarthritis (OA), Respiratory Disorder, Sleep Apnea/CPAP/BIPAP Additional Past Medical History / Comment(s): obesity, obesity hypoventilation syndrome, suspected CHF and cor pulmonale, previous history of defibrillator placement, CVA in 2004, chronic back pain secondary to DDD and spinal canal stenosis, history of vertebral fracture L2 through L5, chronic lower extremity edema, diverticular disease, L knee fx in past and torn R rotator cuff, cellulitis, hospitalization for gallbladder complications Last Myocardial Infarction Date:: 2011 History of Any Multi-Drug Resistant Organisms: None Reported Past Surgical History: Bowel Resection, Cholecystectomy, Heart Catheterization With Stent, Hernia Repair, Pacemaker Additional Past Surgical History / Comment(s): PTCA with stent (4 total), 04/05/13 [employer] pacemaker, 1989' umbilical hernia repair, colonoscopy, circumcision, R eye surgery for strabismus, gallbladder stents One removed from HF on 03/19, Colostomy with open wounds. Past Anesthesia/Blood Transfusion Reactions: No Reported Reaction Date of Last Stent Placement:: 2012 Type of Cardiac Device: Permanent Pacemaker Device Placement Date:: 04/05/13 Past Psychological History: No Psychological Hx Reported Smoking Status: Current some day smoker Past Alcohol Use History: None Reported Past Drug Use History: None Reported
== END 2024-12-11 16:18 | disposition home health service (06) | DRG 189 ==
LOC: EC 12:45 → 3SCARD 14:43
PROVIDERS: ADMIT Hospitalist; ATTEND Hospitalist
PROC: 5A09357 Assistance with Respiratory Ventilation, Less than 24 Consecutive Hours, Continuous Positive Airway Pressure (ICD-10-PCS; principal; 2024-12-06)
DX: J96.22 Acute and chronic respiratory failure with hypercapnia (principal); L89.623 Pressure ulcer of left heel, stage 3; G93.40 Encephalopathy, unspecified; E66.2 Morbid (severe) obesity with alveolar hypoventilation; I50.32 Chronic diastolic (congestive) heart failure; M48.56XA Collapsed vertebra, not elsewhere classified, lumbar region, initial encounter for fracture; L03.115 Cellulitis of right lower limb; I11.0 Hypertensive heart disease with heart failure; B96.5 Pseudomonas (aeruginosa) (mallei) (pseudomallei) as the cause of diseases classified elsewhere; I25.5 Ischemic cardiomyopathy; J44.1 Chronic obstructive pulmonary disease with (acute) exacerbation; I73.9 Peripheral vascular disease, unspecified; I48.19 Other persistent atrial fibrillation; Z68.43 Body mass index [BMI] 50.0-59.9, adult; J96.21 Acute and chronic respiratory failure with hypoxia; Z93.3 Colostomy status; G62.9 Polyneuropathy, unspecified; I87.2 Venous insufficiency (chronic) (peripheral); I87.8 Other specified disorders of veins; E78.5 Hyperlipidemia, unspecified; F17.210 Nicotine dependence, cigarettes, uncomplicated; G89.29 Other chronic pain; I25.10 Atherosclerotic heart disease of native coronary artery without angina pectoris; I25.2 Old myocardial infarction; I89.0 Lymphedema, not elsewhere classified; K21.9 Gastro-esophageal reflux disease without esophagitis; K43.5 Parastomal hernia without obstruction or gangrene; M47.816 Spondylosis without myelopathy or radiculopathy, lumbar region; N40.0 Benign prostatic hyperplasia without lower urinary tract symptoms; Z79.01 Long term (current) use of anticoagulants; Z79.02 Long term (current) use of antithrombotics/antiplatelets; Z79.51 Long term (current) use of inhaled steroids; Z79.82 Long term (current) use of aspirin; Z79.899 Other long term (current) drug therapy; Z86.73 Personal history of transient ischemic attack (TIA), and cerebral infarction without residual deficits; Z90.49 Acquired absence of other specified parts of digestive tract; Z95.5 Presence of coronary angioplasty implant and graft; Z95.810 Presence of automatic (implantable) cardiac defibrillator; Z99.81 Dependence on supplemental oxygen; Z28.310 Unvaccinated for COVID-19
CPT/HCPCS: 36415; 71046; 80053; 82803; 83605; 83735; 83880; 84484; 85025; 85610; 85730; 87636; 93005; 94640; 94660; 94760; 96374; 96376; 99285

== ENCOUNTER 2024-12-15 14:34 | Emergency (ER) | payer MEDICARE ==
[2024-12-15 14:52] VITALS: TEMP 97
[2024-12-15] MEDS: LIDOCAINE/EPINEPHR/TETRACAINE 5 ML BOTTLE TOPICAL ONE (16:09)
--- NOTE | 2024-12-15 16:20 | ED ---
General Adult HPI - General Chief complaint: Wound/Laceration Stated complaint: Bleed Time Seen by Provider: 12/15/24 15:20 Source: patient, EMS, RN notes reviewed Limitations: no limitations - History of Present Illness Initial comments: 69-year-old male presents to the emergency department for evaluation of scrotal bleeding. Patient states that he used a plastic urinal at home and believes that this may have caught the scrotum. He states that since then he has had bleeding. He is on blood thinners. He denies any dizziness or lightheadedness. He is up-to-date on tetanus vaccine. - Related Data Home Medications Medication Instructions Recorded Confirmed Clopidogrel [Plavix] 75 mg PO DAILY 03/20/19 12/06/24 Sennosides/Docusate Sodium [Senna 1 tab PO BID 02/07/23 12/06/24 Plus 8.6-50 mg Tablet] oxyCODONE HCL/ACETAMINOPHEN 1 tab PO Q6HR PRN 02/07/23 12/06/24 [Percocet 10-325 mg] Budesonide/Formoterol Fumarate 2 puff INHALATION RT-BID 03/03/23 12/06/24 [Symbicort 80-4.5 Mcg Inhaler] Ipratropium-Albuterol Nebulize 3 ml INHALATION RT-QID 03/03/23 12/06/24 [Duoneb 0.5 mg-3 mg/3 ml Soln] SILVER sulfADIAZINE CREAM 1 applic TOPICAL DAILY PRN 03/23/23 12/06/24 [Silvadene Cream] Apixaban [Eliquis] 5 mg PO BID 11/25/24 12/06/24 Aspirin EC [Ecotrin Low Dose] 81 mg PO DAILY 11/25/24 12/06/24 Atorvastatin [Lipitor] 40 mg PO HS 11/25/24 12/06/24 Ciclopirox Olamine Cream [Ciclodan] 1 applic TOPICAL BID 11/25/24 12/06/24 Isosorbide Mononitrate ER [Imdur] 30 mg PO PC-LUNCH 11/25/24 12/06/24 Losartan [Cozaar] 25 mg PO HS 11/25/24 12/06/24 Metoprolol Tartrate [Lopressor] 25 mg PO TID 11/25/24 12/06/24 Pantoprazole Sodium [Protonix] 40 mg PO AC-BRKFST 11/25/24 12/06/24 Tamsulosin [Flomax] 0.4 mg PO DAILY 11/25/24 12/06/24 dilTIAZem HCL 60 mg PO Q8H 11/25/24 12/06/24 Previous Rx's Medication Instructions Recorded Diclofenac Sodium Gel [Voltaren 1% 2 gm TOPICAL QID PRN gm 03/07/23 Gel] Amiodarone [Cordarone] 200 mg PO DAILY #0 12/03/24 Furosemide [Lasix] 40 mg PO BID #0 12/03/24 Nicotine 14Mg/24Hr Patch [Habitrol] 1 patch TRANSDERM DAILY #30 patch 12/03/24 Piperacillin-Tazobactam [Zosyn] 4.5 gm IVPB Q8HR #42 each 12/03/24 Nystatin 100,000 Unit/gm Powd 1 applic TOPICAL BID #1 each 12/10/24 [Mycostatin Powder] Allergies Allergy/AdvReac Type Severity Reaction Status Date / Time No Known Allergies Allergy Verified 11/25/24 12:46 Review of Systems ROS Statement: Those systems with pertinent positive or pertinent negative responses have been documented in the HPI. ROS Other: All systems not noted in ROS Statement are negative. Past Medical History Past Medical History: Coronary Artery Disease (CAD), Chest Pain / Angina, COPD, CVA/TIA, Hyperlipidemia, Hypertension, Myocardial Infarction (HI), Osteoarthritis (OA), Respiratory Disorder, Sleep Apnea/CPAP/BIPAP Additional Past Medical History / Comment(s): obesity, obesity hypoventilation syndrome, suspected CHF and cor pulmonale, previous history of defibrillator placement, CVA in 2004, chronic back pain secondary to DDD and spinal canal stenosis, history of vertebral fracture L2 through L5, chronic lower extremity edema, diverticular disease, L knee fx in past and torn R rotator cuff, cellulitis, hospitalization for gallbladder complications Last Myocardial Infarction Date:: 2011 History of Any Multi-Drug Resistant Organisms: None Reported Past Surgical History: Bowel Resection, Cholecystectomy, Heart Catheterization With Stent, Hernia Repair, Pacemaker Additional Past Surgical History / Comment(s): PTCA with stent (4 total), 04/05/13 [employer] pacemaker, umbilical hernia repair, colonoscopy, circumcision, R eye surgery for strabismus, gallbladder stents One removed from on 03/19, Colostomy with open wounds. Past Anesthesia/Blood Transfusion Reactions: No Reported Reaction Date of Last Stent Placement:: 2012 Type of Cardiac Device: Permanent Pacemaker Device Placement Date:: 04/05/13 Past Psychological History: No Psychological Hx Reported Smoking Status: Current some day smoker Past Alcohol Use History: None Reported Past Drug Use History: None Reported - Past Family History Father Family Medical History: Musculoskeletal Disorder, Neurologic Disorder Additional Family Medical History / Comment(s): Father had parkinson's dx and at age 84 yrs. Mother Family Medical History: Myocardial Infarction (HI) Additional Family Medical History / Comment(s): Mother had 3 vessel CABG. She of a massive HI at the age of 53 yrs. General Exam Limitations: no limitations General appearance: alert, in no apparent distress Head exam: Present: atraumatic, normocephalic, normal inspection Eye exam: Present: normal appearance, PERRL, EOMI. Absent: scleral icterus, conjunctival injection, periorbital swelling ENT exam: Present: normal exam, mucous membranes moist Respiratory exam: Present: normal lung sounds bilaterally. Absent: respiratory distress, wheezes, rales, rhonchi, stridor Cardiovascular Exam: Present: regular rate, normal rhythm, normal heart sounds. Absent: systolic murmur, diastolic murmur, rubs, gallop, clicks GI/Abdominal exam: Present: soft. Absent: distended, tenderness, guarding, rebound, rigid exam: Present: other (Overlying scrotal abrasion with small bleeding area, hemostasis obtained). Absent: testicular tenderness Neurological exam: Present: alert, oriented X3 Psychiatric exam: Present: normal affect, normal mood Skin exam: Present: warm, dry, normal color. Absent: intact, rash Course Vital Signs 12/15/24 12/15/24 14:39 17:35 Temperature 97 F L Pulse Rate 76 82 Respiratory 20 18 Rate Blood Pressure 108/63 110/44 O2 Sat by Pulse 94 L 96 Oximetry Medical Decision Making - Medical Decision Making Was pt. sent in by a medical professional or institution (, PA, REEL MAN, urgent care, hospital, or intermediate...) When possible be specific @ -No Did you speak to anyone other than the patient for history (EMS, parent, family, police, friend...)? What history was obtained from this source @ -No Did you review nursing and triage notes (agree or disagree)? Why? @ -I reviewed and agree with nursing and triage notes Were old charts reviewed (outside hosp., previous admission, EMS record, old EKG, old radiological studies, urgent care reports/EKG's, intermediate records)? Report findings @ -No old charts were reviewed Differential Diagnosis (chest pain, altered mental status, abdominal pain women, abdominal pain men, vaginal bleeding, weakness, fever, dyspnea, syncope, headache, dizziness, GI bleed, back pain, seizure, CVA, palpatations, mental health, musculoskeletal)? @ -Laceration, abrasion, ulcer, this list is not all inclusive EKG interpreted by me (3pts min.). @ -None X-rays interpreted by me (1pt min.). @ -None done CT interpreted by me (1pt min.). @ -None done U/S interpreted by me (1pt. min.). @ -None done What testing was considered but not performed or refused? (CT, X-rays, U/S, labs)? Why? @ -None What meds were considered but not given or refused? Why? @ -None Did you discuss the management of the patient with other professionals (professionals i.e. , PA, REEL MAN, lab, RT, psych nurse, psychiatric social worker, web interface developer, teacher, staff air tactical officer, case worker)? Give summary @ -No Was smoking cessation discussed for >3mins.? @ -No Was critical care preformed (if so, how long)? @ -No Were there social determinants of health that impacted care today? How? (Homelessness, low income, unemployed, alcoholism, drug addiction, transportation, low edu. Level, literacy, decrease access to med. care, fci, rehab)? @ -No Was there de-escalation of care discussed even if they declined (Discuss DNR or withdrawal of care, Hospice)? DNR status @ -No What co-morbidities impacted this encounter? (DM, HTN, Smoking, COPD, CAD, Cancer, CVA, ARF, Chemo, Hep., AIDS, mental health diagnosis, sleep apnea, morbid obesity)? @ -None Was patient admitted / discharged? Hospital course, mention meds given and route, prescriptions, significant lab abnormalities, going to OR and other p ertinent info. @ -Discharge. Patient presented to the emergency department for evaluation of bleeding from the scrotum. Patient has a ulcer/abrasion to the scrotum with a small bleeding area. Bleeding controlled after application of let to the area. Patient was monitored following this with no further bleeding. Patient discharged home. Advised to utilize a barrier cream. He is understanding agreeable with plan. Patient stable at time of discharge. Case discussed with Dr. Ann Undiagnosed new problem with uncertain prognosis? @ -No Drug Therapy requiring intensive monitoring for toxicity (Heparin, Nitro, Insulin, Cardizem)? @ -No Were any procedures done? @ -No Diagnosis/symptom? @ -Abrasion Acute, or Chronic, or Acute on Chronic? @Acute Uncomplicated (without systemic symptoms) or Complicated (systemic symptoms)? @ -Acute uncomplicated Side effects of treatment? @ -No Exacerbation, Progression, or Severe Exacerbation? @ -No Poses a threat to life or bodily function? How? (Chest pain, [place], HI, pneumonia, PE, COPD, DKA, ARF, appy, cholecystitis, CVA, Diverticulitis, Homicidal, Suicidal, threat to staff... and all critical care pts) @ -No Disposition Clinical Impression: Abrasion of scrotum Disposition: HOME SELF-CARE Condition: Stable Instructions (If sedation given, give patient instructions): Abrasion (ED) Additional Instructions: Please utilize the barrier cream. Follow up with your doctor. Return to the [facility] department for new or worsening symptoms. Is patient prescribed a controlled substance at d/c from ED?: No Referrals: Boston Min MD [Primary Care Provider] - 1-2 days
[2024-12-15 17:40] VITALS: BP 110/44; PULSE 82; RESP 18
[2024-12-15] MEDS: ZINC OXIDE PASTE (Z-GUARD) 1 APPLIC TOPICAL ONE (18:32)
== END 2024-12-15 20:19 | disposition home or self-care (01) ==
LOC: EC 14:34
DX: S30.813A Abrasion of scrotum and testes, initial encounter (principal); F17.200 Nicotine dependence, unspecified, uncomplicated; X58.XXXA Exposure to other specified factors, initial encounter
CPT/HCPCS: 99282